=== PATIENT | male | born 1950 | race Two or more races ===

== ENCOUNTER 2016-07-02 12:09 | Emergency (ER) | payer OTHER ==
[2016-07-02 12:16] VITALS: BP 149/52; PULSE 94; TEMP 98; BMI 29.1
--- NOTE | 2016-07-02 12:56 | PDOC ---
History of Present Illness - General Chief Complaint: RX Refill Stated Complaint: PRESCRIPTION REFILL Time Seen by Provider: 07/02/16 12:26 History Source: Patient - History of Present Illness Timing/Duration: other Associated Symptoms: denies: chest pain, cough, fever/chills, headaches, malaise , nausea/vomiting, seizure, shortness of breath, syncope, weakness Past History - Past Medical History Allergies/Adverse Reactions: Allergies Allergy/AdvReac Type Severity Reaction Status Date / Time No Known Allergies Allergy Verified 07/02/16 12:17 Home Medications: Ambulatory Orders Amlodipine Besylate [Norvasc -] 5 mg PO DAILY 01/09/13 Clopidogrel Bisulfate [Plavix -] 75 mg PO DAILY 01/09/13 Atorvastatin Ca [Lipitor] 20 mg PO HS #0 tablet 01/11/13 Glyburide/Metformin HCl [Glyburide-Metformin 5-500 mg] 1 each PO TID #30 tablet 01/11/13 Loratadine [Claritin -] 10 mg PO DAILY #0 tablet 01/11/13 Nitroglycerin [Nitrostat] 0.4 mg SL Q6H PRN #0 tab.subl 01/11/13 Tamsulosin HCl 0.4 mg PO DAILY #0 cap.er.24h 01/11/13 Lorazepam [Ativan] 1 mg GT TID PRN #12 tablet 02/07/13 Meclizine HCl [Antivert -] 25 mg PO TID #30 tablet 05/18/13 Ondansetron [Zofran *Odt*] 8 mg SL TID PRN #14 od.tablet 05/18/13 Aspirin [ASA -] 81 mg PO DAILY #0 tab.chew 05/22/13 Gabapentin [Neurontin -] 100 mg PO HS #0 capsule 05/22/13 Metformin HCl [Glucophage -] 500 mg PO BIDAC #60 tablet 05/22/13 Phenytoin Na Extended [Dilantin -] 30 mg PO TID #90 capsule 05/22/13 Physical Therapy Order 10 each NR ASDIR #1 order 05/22/13 Quetiapine Fumarate [Seroquel] 100 mg PO BID #14 tablet 05/23/13 Alprazolam [Xanax] 2 mg PO BID #28 tab MDD 4mg 07/02/16 Metoprolol Tartrate [Lopressor -] 25 mg PO BID #28 tab 07/02/16 Anemia: No Asthma: No Cancer: No Cardiac Disorders: Yes ([place] 25 years ago) CVA: No COPD: No CHF: No Dementia: No Diabetes: Yes GI Disorders: Yes (ulcers) Disorders: No HTN: Yes Hypercholesterolemia: Yes Liver Disease: No Psychiatric Problems: Yes (DEPRESSION) Suicide Attempt (Hx): No Seizures: Yes (2010) Thyroid Disease: No - Surgical History Abdominal Surgery: No Appendectomy: No Cardiac Surgery: No Cholecystectomy: No Lung Surgery: No Neurologic Surgery: No Orthopedic Surgery: Yes (L. Hand 2, 3, 4, 5 fingers amputated) - Immunization History Immunization Up to Date: Yes - Psycho/Social/Smoking Cessation Hx Anxiety: Yes Suicidal Ideation: No Smoking Status: No Smoking History: Never smoked Have you smoked in the past 12 months: No Number of Cigarettes Smoked Daily: 0 If you are a former smoker, when did you quit?: 2012 Information on smoking cessation initiated: No 'Breaking Loose' booklet given: 08/04/12 Hx Alcohol Use: No Drug/Substance Use Hx: Yes Substance Use Type: None Hx Substance Use Treatment: No (DENIES) Review of Systems - Review of Systems Constitutional: No: Chills, Fever Respiratory: No: Cough, Shortness of Breath Cardiac (ROS): No: Lightheadedness ABD/GI: No: Constipated, Diarrhea, Nausea, Vomiting : No: Dysuria Neurological: No: Headache, Dizziness *Physical Exam - Vital Signs Last Vital Signs Temp Pulse Resp BP Pulse Ox 98 F 94 H 18 149/52 99 07/02/16 12:12 07/02/16 12:12 07/02/16 12:12 07/02/16 12:12 07/02/16 12:12 - Physical Exam General Appearance: Yes: Appropriately Dressed. No: Apparent Distress HEENT: positive: Normal Voice Neck: positive: Supple Respiratory/Chest: positive: Lungs Clear, Normal Breath Sounds. negative: Respiratory Distress Cardiovascular: positive: Regular Rate, S1, S2 Integumentary: positive: Dry, Warm Neurologic: positive: Fully Oriented, Alert, Normal Mood/Affect Medical Decision Making - Medical Decision Making 07/02/16 13:08 65-year-old male, history of hypertension, diabetes, anxiety, here for medication refill. Patient came to [facility] yesterday because his brother recently and states some of his meds got left behind in [place] where he resides. Denies any acute medical complaints at this time. Refills sent to pharmacy and patient discharged in stable condition 07/02/16 13:09 *DC/Admit/Observation/Transfer Diagnosis at time of Disposition: Medication refill - Discharge Dispostion Disposition: HOME Condition at time of disposition: Good - Prescriptions Prescriptions: Metoprolol Tartrate [Lopressor -] 25 mg PO BID #28 tab Alprazolam [Xanax] 2 mg PO BID #28 tab MDD 4mg - Patient Instructions Additional Instructions: Take medications as directed
== END 2016-07-02 13:00 | disposition home or self-care (01) ==
LOC: JERFT 12:09
DX: Z76.0 Encounter for issue of repeat prescription (principal); I10 Essential (primary) hypertension; E11.9 Type 2 diabetes mellitus without complications; Z79.84 Long term (current) use of oral hypoglycemic drugs; F41.9 Anxiety disorder, unspecified
CPT/HCPCS: 99281-25

== ENCOUNTER → 2016-07-07 | Emergency (ER) | payer OTHER ==
[~2016-07-07] MED LIST: ALPRAZolam 0.25 MG TABLET ONE; ALPRAZolam 0.25 MG TABLET PO ONE; MECLIZINE HCL 25 MG TABLET (FP) ONE; MECLIZINE HCL 25 MG TABLET (FP) PO ONE; METOCLOPRAMIDE HCL INJECTION 10 MG/2 ML VIAL IVPUSH ONE; METOCLOPRAMIDE HCL INJECTION 10 MG/2 ML VIAL ONE; ONDANSETRON 4 MG/2 ML VIAL IVPB ONE; SODIUM CHLORIDE 1,000 ML IV ONE
[2016-07-07 10:23] VITALS: BMI 29.1
--- NOTE | 2016-07-07 12:26 | PDOC ---
History of Present Illness - General History Source: Patient, Old Records Exam Limitations: No Limitations - History of Present Illness Initial Comments: 07/07/16 19:09 The patient is a 65 year old male, with a significant past medical history of [place] , diabetes, HLD, HTN, depression. chronic back pain, and seizures (no seizures in years), who presents to the emergency department with chest pain, shortness of breath, dizziness, nausea and back pain for the past 3 days. He describes his dizziness as onset when he sits or stands up and resolved when he lays down. He also reports double vision associated with his dizziness. States he has had this for a while, and has taken meclizine in the past but has never seen a neurologist. He describes his chest pain as intermittent in nature, ranging from mild to moderate, without radiation or modifying factors. He states that he has also been having right upper extremity numbness for roughly 8 days. He reports that he recently came from [place] and left his Xanax and Percocet there. The patient ambulates with a cane on baseline but has been having trouble ambulating due to his dizziness. The patient denies headache, fever, chills, vomit, diarrhea and constipation. Allergies: None Past surgical history: Cardiac stent, L. Hand 2, 3, 4, 5 fingers amputated Social history: No alcohol, tobacco or drug use reported <Aries Tsai - Last Filed: 07/07/16 19:09> <Cameron Coulter - Last Filed: 07/07/16 20:13> - General Chief Complaint: Shortness of Breath Stated Complaint: ANXIETY ATTACK Time Seen by Provider: 07/07/16 12:12 Past History <Aries Tsai - Last Filed: 07/07/16 19:09> - Past Medical History Anemia: No Asthma: No Cancer: No Cardiac Disorders: Yes ([place] 25 years ago) CVA: No COPD: No CHF: No Dementia: No Diabetes: Yes GI Disorders: Yes (ulcers) Disorders: No HTN: Yes Hypercholesterolemia: Yes Liver Disease: No Psychiatric Problems: Yes (DEPRESSION) Suicide Attempt (Hx): No Seizures: Yes (2010) Thyroid Disease: No - Surgical History Abdominal Surgery: No Appendectomy: No Cardiac Surgery: No Cholecystectomy: No Lung Surgery: No Neurologic Surgery: No Orthopedic Surgery: Yes (L. Hand 2, 3, 4, 5 fingers amputated) - Immunization History Immunization Up to Date: Yes - Psycho/Social/Smoking Cessation Hx Anxiety: Yes Suicidal Ideation: No Smoking Status: No Smoking History: Never smoked Have you smoked in the past 12 months: No Number of Cigarettes Smoked Daily: 0 If you are a former smoker, when did you quit?: 2012 Information on smoking cessation initiated: No 'Breaking Loose' booklet given: 08/04/12 Hx Alcohol Use: No Drug/Substance Use Hx: No Substance Use Type: None Hx Substance Use Treatment: No (DENIES) <Cameron Coulter - Last Filed: 07/07/16 20:13> - Past Medical History Allergies/Adverse Reactions: Allergies Allergy/AdvReac Type Severity Reaction Status Date / Time No Known Allergies Allergy Verified 07/07/16 10:20 Home Medications: Ambulatory Orders Amlodipine Besylate [Norvasc -] 5 mg PO DAILY 01/09/13 Clopidogrel Bisulfate [Plavix -] 75 mg PO DAILY 01/09/13 Atorvastatin Ca [Lipitor] 20 mg PO HS #0 tablet 01/11/13 Glyburide/Metformin HCl [Glyburide-Metformin 5-500 mg] 1 each PO TID #30 tablet 01/11/13 Loratadine [Claritin -] 10 mg PO DAILY #0 tablet 01/11/13 Nitroglycerin [Nitrostat] 0.4 mg SL Q6H PRN #0 tab.subl 01/11/13 Tamsulosin HCl 0.4 mg PO DAILY #0 cap.er.24h 01/11/13 Lorazepam [Ativan] 1 mg GT TID PRN #12 tablet 02/07/13 Meclizine HCl [Antivert -] 25 mg PO TID #30 tablet 05/18/13 Ondansetron [Zofran *Odt*] 8 mg SL TID PRN #14 od.tablet 05/18/13 Aspirin [ASA -] 81 mg PO DAILY #0 tab.chew 05/22/13 Gabapentin [Neurontin -] 100 mg PO HS #0 capsule 05/22/13 Metformin HCl [Glucophage -] 500 mg PO BIDAC #60 tablet 05/22/13 Phenytoin Na Extended [Dilantin -] 30 mg PO TID #90 capsule 05/22/13 Physical Therapy Order 10 each NR ASDIR #1 order 05/22/13 Quetiapine Fumarate [Seroquel] 100 mg PO BID #14 tablet 05/23/13 Alprazolam [Xanax] 2 mg PO BID #28 tab MDD 4mg 07/02/16 Metoprolol Tartrate [Lopressor -] 25 mg PO BID #28 tab 07/02/16 Diphenhydramine HCl [Benadryl -] 25 mg PO ONCE PRN #1 capsule 07/07/16 Meclizine HCl [Antivert -] 25 mg PO TID PRN #15 tablet 07/07/16 Oxycodone HCl/Acetaminophen [Percocet 5-325 mg Tablet] 1 tab PO HS 07/07/16 Review of Systems - Review of Systems Able to Perform ROS?: Yes Comments:: 07/07/16 19:09 CONSTITUTIONAL: No reported: Fever, Chills, Diaphoresis, Generalized Weakness, Malaise, Loss of Appetite HEENT: No reported: Rhinorrhea, Nasal Congestion, Throat Pain, Throat Swelling, Difficulty Swallowing, Mouth Swelling, Ear Pain, Eye Pain, Visual Changes CARDIOVASCULAR: Reported: Chest pain No reported: Syncope, Palpitations, Irregular Heart Rate, Lightheadedness, Peripheral Edema RESPIRATORY: Reported: Shortness of breath No reported: Cough, SOB with Exertion, Orthopnea, Wheezing, Stridor, Hemoptysis GASTROINTESTINAL: Reported: Nausea No reported: Abdominal pain, Abdominal Distension, Vomiting, Diarrhea, Constipation, Melena, Hematochezia GENITOURINARY: No reported: Dysuria, Frequency, Urgency, Hesitancy, Flank Pain, Genital Pain MUSCULOSKELETAL: Reported: Back pain. No reported: Myalgia, Arthralgia, Joint Swelling, Neck Pain SKIN: No reported: Rash, Itching, Pallor HEMEATOLOGIC/IMMUNOLOGIC: No reported: Easy Bleeding, Easy Bruising, Lymphadenopathy, Frequent infections ENDOCRINE: No reported: Unexplained Weight Gain, Unexplained Weight Loss, Heat Intolerance , Cold Intolerance NEUROLOGIC: Reported: dizzines, right upper extremity numbness. No reported: Headache, Paresthesias, Unsteady Gait, Seizure, Mental Status Changes, Incontinence PSYCHIATRIC: No reported: Anxiety, Depression <Aries Tsai - Last Filed: 07/07/16 19:09> *Physical Exam - Vital Signs Last Vital Signs Temp Pulse Resp BP Pulse Ox 98.7 F 68 18 154/84 97 07/07/16 13:51 07/07/16 13:51 07/07/16 13:51 07/07/16 13:51 07/07/16 13:51 - Physical Exam Comments: 07/07/16 19:09 GENERAL: The patient is awake, alert, and fully oriented, Nontoxic - in no acute distress. HEAD: Normocephalic, atraumatic. EYES: extraocular movements intact, sclera anicteric, conjunctiva clear. ENT: Normal voice, Moist mucous membranes. NECK: Normal range of motion, supple LUNGS: Breath sounds equal, clear to auscultation bilaterally. No wheezes, no rhonchi, no rales. HEART: Regular rate and rhythm, without murmur, rub or gallop. ABDOMEN: Soft, nontender, normoactive bowel sounds. 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 Normal range of motion, no edema. No clubbing or cyanosis. No cords, erythema, or tenderness. NEURO: Mental status: The patient is oriented x3. Cranial nerves: Cranial nerves II through XII are intact Motor: The upper extremities are 5 over 5 in all muscle groups. The lower extremities are 5 over 5 in all muscle groups. No pronator drift. Sensation: Sensation is intact to light touch throughout. Neg romberg Cerebellar: Ymxoyb-[id number]-yudy is normal in both upper extremities. Gait: antalgic (with cane) baseline PSYCH: Normal mood, normal affect. SKIN: Warm, Dry, normal turgor <Aries Tsai - Last Filed: 07/07/16 19:09> - Vital Signs Last Vital Signs Temp Pulse Resp BP Pulse Ox 97.9 F 79 18 128/93 100 07/07/16 10:21 07/07/16 10:21 07/07/16 10:21 07/07/16 10:21 07/07/16 10:21 <Cameron Coulter - Last Filed: 07/07/16 20:13> Heart Score/ECG Review - ECG Impressions Comment:: 07/07/16 14:50 Twelve-lead EKG was performed and reviewed by me. There is normal sinus rhythm with a normal rate. Rate of 65 The axis is normal. The intervals are normal. There is normal R wave progression There are no ST or T wave abnormalities. <Yfn,Cameron - Last Filed: 07/07/16 20:13> ED Treatment Course - LABORATORY CBC & Chemistry Diagram: 07/07/16 12:42 07/07/16 12:42 - ADDITIONAL ORDERS Additional order review: Laboratory Results 07/07/16 07/07/16 15:26 12:42 Sodium 143 Potassium 4.1 Chloride 107 Carbon Dioxide 26 Anion Gap 10 BUN 10 D Creatinine 0.9 D Creat Clearance w eGFR > 60 Random Glucose 155 H D Calcium 8.7 Total Bilirubin 0.3 D AST 10 L D ALT 15 D Alkaline Phosphatase 69 Creatine Kinase 96 Troponin I < 0.02 Total Protein 7.6 Albumin 4.2 Urine Color Straw Urine Appearance Clear Urine pH 6.0 Ur Specific [place] 1.010 Urine Protein Negative Urine Glucose (UA) Negative Urine Ketones Negative Urine Blood Negative Urine Nitrite Negative Urine Bilirubin Negative Urine Urobilinogen Negative Ur Leukocyte Esterase Negative 07/07/16 12:42 RBC 4.22 MCV 84.6 MCHC 34.5 RDW 13.4 MPV 8.6 Neutrophils % 65.7 Lymphocytes % 25.4 D Monocytes % 5.3 Eosinophils % 3.2 D Basophils % 0.4 - Medications Given in the ED: ED Medications Discontinued Medications Generic Name Dose Route Start Last Admin Trade Name Megan PRN Reason Stop Dose Admin Alprazolam 0.25 mg 07/07/16 15:26 07/07/16 15:35 Xanax - PO 07/07/16 15:27 0.25 mg ONCE ONE Administration Sodium Chloride 1,000 mls @ 1,000 mls/hr 07/07/16 12:27 07/07/16 12:49 Normal Saline - IV 07/07/16 13:26 1,000 mls/hr .Q1H ONE Administration Meclizine HCl 25 mg 07/07/16 12:27 07/07/16 12:48 Antivert - PO 07/07/16 12:28 25 mg ONCE ONE Administration Metoclopramide HCl 10 mg 07/07/16 16:33 07/07/16 18:25 Reglan Injection - IVPUSH 07/07/16 16:34 10 mg ONCE ONE Administration Ondansetron HCl 4 mg 07/07/16 12:27 07/07/16 12:49 Zofran Injection IVPB 07/07/16 12:28 4 mg ONCE ONE Administration <Aries Tsai - Last Filed: 07/07/16 19:09> - LABORATORY CBC & Chemistry Diagram: 07/07/16 12:42 07/07/16 12:42 <Cameron Coulter - Last Filed: 07/07/16 20:13> Medical Decision Making - Medical Decision Making 07/07/16 20:10 65y M presenting with dizziness, chest pain, leg pain. symptmos seem chronic but worse than usual. pts exam unremarakable without any focal neuro symptoms, no notable cerebellar findings. suspect periperal vertigo as dizzines (which seems to be his primary concern) is worse with walking but resolves completely at rest - unlikely central cause without any focal cerebellar or neuro findings. labs were obtained to r/o anemia, metabolic derangement, acs labs were reviewed ct head shows no changes pt able to ambulate with hi typical giat dizziness also improved with meclizine. case discussed with dr. powers - states if pt feeling well can d/c to fu with him as outpt and with dr. blake for his dizziness will dc pt on meclizine return precautiosn were discussed I discussed the physical exam findings, ancillary test results and final diagnoses with the patient. I answered all of the patient's questions. The patient was satisfied with the care received and felt comfortable with the discharge plan and treatment plan. The patient will call their primary care physician within 24 hours to arrange follow-up and will return to the Emergency Department with any new, persistent or worsening symptoms. A portion of this note was documented by scribe services under my direction. I have reviewed the details of the note, within reason, and agree with the documentation with the following case summary and management plan written by me <Cameron Coulter - Last Filed: 07/07/16 20:13> *DC/Admit/Observation/Transfer - Attestations Scribe Attestion: 07/07/16 19:09 Documentation prepared by Aries Tsai, acting as director medical economics for Cameron Coulter MD <Aries Tsai - Last Filed: 07/07/16 19:09> - Discharge Dispostion Admit: No <Yfn,Cameron - Last Filed: 07/07/16 20:13> Diagnosis at time of Disposition: Vertigo - Discharge Dispostion Disposition: HOME Condition at time of disposition: Improved - Prescriptions Prescriptions: Meclizine HCl [Antivert -] 25 mg PO TID PRN #15 tablet PRN Reason: Vertigo Diphenhydramine HCl [Benadryl -] 25 mg PO ONCE PRN #1 capsule PRN Reason: Insomnia - Referrals Referrals: Brenda Powers MD [Staff Physician] - Anil Blake MD [Staff Physician] - - Patient Instructions Printed Discharge Instructions: DI for Vertigo Additional Instructions: Return to the emergency department immediately with ANY new, persistent or worsening symptoms including headacine, dizziness, nausea/vomiting or other concerns. You MUST call and follow up with Dr. Powers tomorrow for further evaluation of your symptoms. Results were discussed with you. Please make sure your doctor reviews the results of your emergency evaluation. Print Language: BOLIVIAN
[2016-07-07 13:18] LABS: BASOPHIL 0.4 % (0-2.0); EOSINOPHIL 3.2 % (0-4.5); MCH 29.2 pg (25.7-33.7); MCHC 34.5 g/dl (32.0-35.9); MEAN CELL VOLUME 84.6 fl (80-96); MEAN PLT VOLUME 8.6 fl (7.5-11.1); NEUTROPHILS 65.7 % (42.8-82.8); PLATELET COUNT 152 K/MM3 (134-434); RDW 13.4 % (11.9-15.9); WHITE BLOOD COUNT 6.6 K/mm3 (4.0-10.0)
[2016-07-07 13:52] VITALS: BP 154/84; PULSE 68; TEMP 98.7
[2016-07-07 14:07] LABS: ALBUMIN 4.2 g/dl (3.4-5.0); ANION GAP 10 (8-16); BILIRUBIN,TOTAL 0.3 mg/dL (0.2-1.0); CALCIUM 8.7 mg/dL (8.5-10.1); CO2 26 mmol/L (21-32); CREATININE 0.9 mg/dL (0.7-1.3); GLUCOSE,RANDOM 155 mg/dL (74-106); SGOT/AST 10 U/L (15-37); SGPT/ALT 15 U/L (12-78); TOT PROT 7.6 g/dl (6.4-8.2)
[2016-07-07 14:10] LABS: ALK PHOS 69 U/L (45-117); TROPONIN I < 0.02 ng/ml (0.00-0.05)
--- NOTE | 2016-07-07 15:56 | EKG ---
Test Reason : Blood Pressure : / mmHG Vent. Rate : 065 BPM Atrial Rate : 065 BPM P-R Int : 160 ms QRS Dur : 080 ms QT Int : 406 ms P-R-T Axes : 044 013 059 degrees QTc Int : 422 ms NORMAL SINUS RHYTHM POSSIBLE LEFT ATRIAL ENLARGEMENT BORDERLINE ECG WHEN COMPARED WITH ECG OF 23-MAY-2013 14:54, VENT. RATE HAS DECREASED BY 38 BPM T WAVE VARIATION Confirmed by LORRI BLACKMAN MD ([id number]) on 07/07/2016 3:55:39 PM Referred By: Confirmed By:LORRI BLACKMAN MD
[2016-07-07 16:00] LABS: URINE APPEARANCE CLEAR; URINE BILIRUBIN NEGATIVE (NEGATIVE); URINE BLOOD NEGATIVE (NEGATIVE); URINE COLOR STRAW; URINE GLUCOSE (UA) NEGATIVE (NEGATIVE); URINE KETONE NEGATIVE (NEGATIVE); URINE LEUK ESTERASE NEGATIVE (NEGATIVE); URINE NITRITE NEGATIVE (NEGATIVE); URINE PROTEIN NEGATIVE (NEGATIVE); URINE UROBILINOGEN NEGATIVE E.U./dl (0.2-1.0)
== END | disposition home or self-care (01) ==
LOC: JER 10:14
PROC: 3E033GC Introduction of Other Therapeutic Substance into Peripheral Vein, Percutaneous Approach (ICD-10-PCS; principal; 2016-07-07)
PROC: 3E0337Z Introduction of Electrolytic and Water Balance Substance into Peripheral Vein, Percutaneous Approach (ICD-10-PCS; 2016-07-07)
DX: R42 Dizziness and giddiness (principal); I25.2 Old myocardial infarction; I10 Essential (primary) hypertension; E78.00 Pure hypercholesterolemia, unspecified; F32.9 Major depressive disorder, single episode, unspecified; E11.9 Type 2 diabetes mellitus without complications; Z79.84 Long term (current) use of oral hypoglycemic drugs
CPT/HCPCS: 36415; 70450-TC; 80053; 81003; 82550; 84484; 85025; 93005; 93010; 96361; 96374; 96375; 99283-25

== ENCOUNTER 2016-09-22 13:43 | Inpatient (IN) | payer OTHER ==
--- NOTE | 2016-09-22 14:24 | PDOC ---
History of Present Illness - General History Source: Patient Exam Limitations: No Limitations - History of Present Illness Initial Comments: 09/22/16 14:26 The patient is a 65-year-old man with a significant past medical history of hypertension, hypercholesterolemia, myocardial infarction (25 years ago), diabetes mellitus, gastric ulcers, seizure disorders and anxiety who presents to the emergency department with complaints of chest pain. Patient states that for the past 3 days, he has been experiencing mid-sternal chest pains that are exacerbated when taking a deep breath and worst at night. He also notes that he also has a continuous cough that also exacerbates at night. He also states that he recently came from [place], approximately 2 months ago. No other complaints. He reports compliance with all of his medications this morning. He did not tae anything for pain. No fever, chills, lightheadedness, dizziness, abdominal pain, nausea, vomiting. Allergies: No Known Drug Allergies Past Surgical History: Left hand second, third, fourth and fifth digit amputation Social History: Current some day cigarette smoker. Occasional EtOH use. No recreational drug use. Primary Care Physician: Dr. Brenda Araujo <Jessi Duran - Last Filed: 09/22/16 17:42> <Carolina Costa - Last Filed: 09/22/16 18:17> - General Chief Complaint: Chest Pain Stated Complaint: CHEST PAIN Time Seen by Provider: 09/22/16 14:13 Past History <Jessi Duran - Last Filed: 09/22/16 17:42> - Past Medical History Anemia: No Asthma: No Cancer: No Cardiac Disorders: Yes ([place] 25 years ago) CVA: No COPD: No CHF: No Dementia: No Diabetes: Yes GI Disorders: Yes (ulcers) Disorders: No HTN: Yes Hypercholesterolemia: Yes Liver Disease: No Psychiatric Problems: Yes Suicide Attempt (Hx): No Seizures: Yes (2010) Thyroid Disease: No - Surgical History Abdominal Surgery: No Appendectomy: No Cardiac Surgery: No Cholecystectomy: No Lung Surgery: No Neurologic Surgery: No Orthopedic Surgery: Yes (L. Hand 2, 3, 4, 5 fingers amputated) - Immunization History Immunization Up to Date: Yes - Psycho/Social/Smoking Cessation Hx Anxiety: Yes Suicidal Ideation: No Smoking Status: No Smoking History: Current some day smoker Have you smoked in the past 12 months: No Number of Cigarettes Smoked Daily: 1 If you are a former smoker, when did you quit?: 2012 Information on smoking cessation initiated: No 'Breaking Loose' booklet given: 08/04/12 Hx Alcohol Use: Yes (OCCASIONALLY) Drug/Substance Use Hx: Yes (none x 5 years) Substance Use Type: Prescribed Hx Substance Use Treatment: No (DENIES) <CostaDharaCarolina - Last Filed: 09/22/16 18:17> - Past Medical History Allergies/Adverse Reactions: Allergies Allergy/AdvReac Type Severity Reaction Status Date / Time No Known Allergies Allergy Verified 09/22/16 13:49 Home Medications: Ambulatory Orders Metoprolol Tartrate [Lopressor -] 25 mg PO BID #28 tab 07/02/16 Meclizine HCl [Antivert -] 25 mg PO TID 09/03/16 Metoclopramide HCl [Reglan -] 10 mg PO TID 09/03/16 Oxycodone HCl/Acetaminophen [Percocet 10-325 mg Tablet] 1 each PO BID PRN #14 tablet MDD 2 09/04/16 Ambien 10 mg PO DAILY 09/22/16 Folic Acid 1 mg PO DAILY 09/22/16 Metoprolol Succinate [Toprol Xl -] 25 mg PO DAILY 09/22/16 Naproxen [Naprosyn -] 500 mg PO DAILY 09/22/16 Quetiapine Fumarate "Xr" [Seroquel Xr -] 150 mg PO DAILY 09/22/16 Sennosides [Senna] 8.6 mg PO 09/22/16 Simvastatin 40 mg PO 09/22/16 Review of Systems - Review of Systems Able to Perform ROS?: Yes Comments:: 09/22/16 14:26 GENERAL/CONSTITUTIONAL: No fever or chills. No weakness. HEAD, EYES, EARS, NOSE AND THROAT: No change in vision. No ear pain or discharge. No sore throat. CARDIOVASCULAR: Yes: Chest Pain. Shortness of Breath. RESPIRATORY: Yes: Cough No Wheezing, or hemoptysis. GASTROINTESTINAL: No nausea, vomiting, diarrhea or constipation. GENITOURINARY: No dysuria, frequency, or change in urination. MUSCULOSKELETAL: No joint or muscle swelling or pain. No neck or back pain. SKIN: No rash NEUROLOGIC: No headache, vertigo, loss of consciousness, or change in strength/ sensation. ENDOCRINE: No increased thirst. No abnormal weight change. HEMATOLOGIC/LYMPHATIC: No anemia, easy bleeding, or history of blood clots. ALLERGIC/IMMUNOLOGIC: No hives or skin allergy. <DuranJessi - Last Filed: 09/22/16 17:42> *Physical Exam - Vital Signs Last Vital Signs Temp Pulse Resp BP Pulse Ox 97.8 F 110 H 20 204/112 96 09/22/16 13:45 09/22/16 13:45 09/22/16 13:45 09/22/16 13:45 09/22/16 13:45 - Physical Exam Comments: 09/22/16 14:26 GENERAL: Awake, alert, and fully oriented, in no acute distress HEAD: No signs of trauma EYES: PERRLA, EOMI, sclera anicteric, conjunctiva clear ENT: Auricles normal inspection, hearing grossly normal, nares patent, oropharynx clear without exudates. Moist mucosa NECK: Normal ROM, supple, no lymphadenopathy, JVD, or masses LUNGS: Breath sounds equal, clear to auscultation bilaterally. No wheezes, and no crackles HEART: Tachycardic but regular rate and rhythm, no murmurs, rubs or gallops ABDOMEN: Soft, nontender, normoactive bowel sounds. No guarding, no rebound. No masses EXTREMITIES: Normal range of motion, no edema. No clubbing or cyanosis. No cords, erythema, or tenderness NEUROLOGICAL: Cranial nerves II through XII grossly intact. Normal speech, normal gait <ReneeJessi - Last Filed: 09/22/16 17:42> - Vital Signs Last Vital Signs Temp Pulse Resp BP Pulse Ox 97.8 F 110 H 20 204/112 96 09/22/16 13:45 09/22/16 13:45 09/22/16 13:45 09/22/16 13:45 09/22/16 13:45 <Carolina Costa - Last Filed: 09/22/16 18:17> Heart Score/ECG Review - History History: Highly suspicious - Electrocardiogram EKG: Normal - Age Age: >/= 65 - Risk Factors Risk Factors Heart Score: Yes Hx Hypercholesterolemia, Yes Hx Hypertension, Yes Hx Diabetes, Yes Smoking History Based on the list above the patient has:: >/=3 risk factors or Hx atherosclerotic disease - Troponin Troponin: </= normal limit - Score Heart Score - Total: 6 - ECG Impressions Comment:: EKG 13:55- Sinus tach 102 bpm, no acute ST/T changes <Carolina Costa - Last Filed: 09/22/16 18:17> ED Treatment Course - LABORATORY CBC & Chemistry Diagram: 09/22/16 14:50 09/22/16 14:50 - RADIOLOGY Radiograph Interpretation: 09/22/16 16:18 EXAM: RAD/CHEST X-RAY PORTABLE Interpreted by Dr. Cleve Bishop IMPRESSION: Since 05/18/2013, there is a slightly better inspiration and no sign of infiltrate or failure. The mediastinum is not widened. The angles are sharp. The bones and soft tissues are intact. EXAM: CT/CHEST CTA Interpreted by Dr. Brian Pineda IMPRESSION: Sequential axial images were obtained from the thoracic inlet through the domes of the diaphragm following the administration of intravenous contrast material. CTA pulmonary embolism protocol was utilized, including coronal and oblique coronal MIP images. There is good opacification of the central pulmonary vasculature with no filling defects suspicious for pulmonary embolism. The lung stinson are free of pulmonary masses, areas of acute consolidation or pleural effusions. No mediastinal masses, fluid collections or lymphadenopathy are identified. The heart is not enlarged. There is no evidence of thoracic aortic aneurysm or dissection. Evaluation of the upper abdomen demonstrates no acute abnormalities. <Jessi Duran - Last Filed: 09/22/16 17:42> - LABORATORY CBC & Chemistry Diagram: 09/22/16 14:50 09/22/16 14:50 <Carolina Costa - Last Filed: 09/22/16 18:17> Medical Decision Making - Medical Decision Making 09/22/16 17:[address] Brenda Araujo. Informed that Dr. Rohith Ross is covering. 09/22/16 17:[address] Rohith Ross. Case discussed. <Jessi Duran - Last Filed: 09/22/16 17:42> - Medical Decision Making 09/22/16 17:42 CTA neg for PE. Case d/w Dr. Ross, will admit for chest pain. <Carolina Costa - Last Filed: 09/22/16 18:17> *DC/Admit/Observation/Transfer - Attestations Scribe Attestion: 09/22/16 14:26 Documentation prepared by Jessi Duran, acting as medical pathologist for Carolina Costa MD. <Jessi Duran - Last Filed: 09/22/16 17:42> - Discharge Dispostion Admit: Yes <Carolina Costa - Last Filed: 09/22/16 18:17> Diagnosis at time of Disposition: Chest pain Qualifiers: Chest pain type: unspecified Qualified Code(s): R07.9 - Chest pain, unspecified - Discharge Dispostion Condition at time of disposition: Stable - Referrals Referrals: Brenda Araujo MD [Primary Care Provider] -
[2016-09-22 15:00] LABS: BASOPHIL 0.5 % (0-2.0); EOSINOPHIL 2.7 % (0-4.5); MCH 29.7 pg (25.7-33.7); MCHC 32.8 g/dl (32.0-35.9); MEAN CELL VOLUME 90.5 fl (80-96); MEAN PLT VOLUME 9.8 fl (7.5-11.1); NEUTROPHILS 72.8 % (42.8-82.8); PLATELET COUNT 165 K/MM3 (134-434); RDW 14.1 % (11.9-15.9); WHITE BLOOD COUNT 6.6 K/mm3 (4.0-10.0)
[2016-09-22 15:25] LABS: ALBUMIN 4.9 g/dl (3.4-5.0); ANION GAP 12 (8-16); BILIRUBIN,TOTAL 0.3 mg/dL (0.2-1.0); CALCIUM 9.2 mg/dL (8.5-10.1); CO2 23 mmol/L (21-32); CREATININE 0.9 mg/dL (0.7-1.3); GLUCOSE,RANDOM 114 mg/dL (74-106); SGOT/AST 17 U/L (15-37); SGPT/ALT 30 U/L (12-78); TOT PROT 8.6 g/dl (6.4-8.2)
[2016-09-22 15:28] LABS: ALK PHOS 64 U/L (45-117); TROPONIN I < 0.02 ng/ml (0.00-0.05)
[2016-09-22 15:30] LABS: INR 1.04 (0.82-1.09); PROTHROMBIN TIME (PATIENT) 11.4 SEC (9.98-11.88)
[2016-09-22] MEDS ORDERED: ZOLPIDEM TARTRATE 5 MG TABLET PO PRN (18:49)
[2016-09-22] MEDS ORDERED: ASPIRIN 325 MG ENTERIC COATED TABLET (FP) ONE (18:56)
[2016-09-22] MEDS: ASPIRIN 325 MG ENTERIC COATED TABLET (FP) PO SCH (19:10)
[2016-09-22 20:18] LABS: TROPONIN I < 0.02 ng/ml (0.00-0.05)
[2016-09-22] MEDS ORDERED: LOSARTAN POTASSIUM 25 MG TABLET ONE (22:56)
[2016-09-22] MEDS ORDERED: HEPARIN NA (PORCINE) 5,000 UNITS/ML 1ML VIAL ONE (22:56)
[2016-09-22] MEDS ORDERED: FERROUS SO4 325 MG TABLET (FP) ONE (22:56)
[2016-09-23] MEDS: MECLIZINE HCL 25 MG TABLET (FP) PO SCH ×4 (00:59→22:22)
[2016-09-23] MEDS: METOCLOPRAMIDE HCL 10 MG TABLET (FP) PO SCH ×4 (01:00→22:23)
[2016-09-23] MEDS: METOPROLOL TARTRATE 25 MG TABLET (FP) PO SCH ×4 (01:00→22:23)
[2016-09-23] MEDS: HEPARIN NA (PORCINE) 5,000 UNITS/ML 1ML VIAL SQ SCH ×3 (01:00→22:23)
[2016-09-23] MEDS: ATORVASTATIN CA 40 MG TABLET (FP) PO SCH ×2 (01:00→22:22)
[2016-09-23] MEDS ORDERED: ALPRAZolam 0.25 MG TABLET PO ONE ×2 (01:37→23:00)
[2016-09-23] MEDS ORDERED: ALPRAZolam 0.25 MG TABLET ONE (01:39)
[2016-09-23 07:39] LABS: BASOPHIL 0.3 % (0-2.0); EOSINOPHIL 3.3 % (0-4.5); MCH 30.7 pg (25.7-33.7); MCHC 33.8 g/dl (32.0-35.9); MEAN PLT VOLUME 9.4 fl (7.5-11.1); PLATELET COUNT 147 K/MM3 (134-434); RDW 14.1 % (11.9-15.9)
[2016-09-23 08:18] LABS: ALBUMIN 4.1 g/dl (3.4-5.0); ANION GAP 11 (8-16); CALCIUM 8.1 mg/dL (8.5-10.1); CO2 24 mmol/L (21-32); GLUCOSE,RANDOM 122 mg/dL (74-106)
[2016-09-23 08:23] LABS: ALK PHOS 55 U/L (45-117); BILIRUBIN,TOTAL 0.3 mg/dL (0.2-1.0); CHOLESTEROL 200 mg/dL (50-200); COCKROFT - GAULT 99.68; CREATININE 0.8 mg/dL (0.7-1.3); LDL CHOLESTEROL (ONLY SJRH) 123 mg/dL (5-100); SGOT/AST 13 U/L (15-37); SGPT/ALT 25 U/L (12-78); TOT PROT 7.4 g/dl (6.4-8.2); TROPONIN I < 0.02 ng/ml (0.00-0.05)
--- NOTE | 2016-09-23 08:23 | HP ---
Admitting History and Physical - Admission History of Present Illness: 65-year-old man with a significant past medical history of hypertension, hypercholesterolemia, myocardial infarction (25 years ago), diabetes mellitus, gastric ulcers, seizure disorders and anxiety who presents to the emergency department with complaints of chest pain. 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 Cardiovascular: Yes: HTN, Hyperlipdemia, [place] Gastrointestinal: Yes: GERD, Peptic Ulcer Disease Psych: Yes: Anxiety Musculoskeletal: Yes: Other (amputations of fingers rt hand) ENT: Yes: Allergic Rhinitis - Past Surgical History Past Surgical History: Yes: Amputation - Smoking History Smoking history: Current some day smoker Have you smoked in the past 12 months: No Aproximately how many cigarettes per day: 1 If you are a former smoker, when did you quit?: 2012 - Alcohol/Substance Use Hx Alcohol Use: Yes (OCCASIONALLY) - Social History History of Recent Travel: No Home Medications - Allergies Allergies/Adverse Reactions: Allergies Allergy/AdvReac Type Severity Reaction Status Date / Time No Known Allergies Allergy Verified 09/22/16 13:49 - Home Medications Home Medications: Ambulatory Orders Metoprolol Tartrate [Lopressor -] 25 mg PO BID #28 tab 07/02/16 Meclizine HCl [Antivert -] 25 mg PO TID 09/03/16 Metoclopramide HCl [Reglan -] 10 mg PO TID 09/03/16 Oxycodone HCl/Acetaminophen [Percocet 10-325 mg Tablet] 1 each PO BID PRN #14 tablet MDD 2 09/04/16 Ambien 10 mg PO DAILY 09/22/16 Folic Acid 1 mg PO DAILY 09/22/16 Metoprolol Succinate [Toprol Xl -] 25 mg PO DAILY 09/22/16 Naproxen [Naprosyn -] 500 mg PO DAILY 09/22/16 Quetiapine Fumarate "Xr" [Seroquel Xr -] 150 mg PO DAILY 09/22/16 Sennosides [Senna] 8.6 mg PO 09/22/16 Simvastatin 40 mg PO 09/22/16 Family Disease History - Family Disease History Family Disease History: Other: Father (' old age'), Mother (' old age') , Brother (back pain, alive) Review of Systems - Review of Systems Cardiovascular: reports: Chest Pain, Shortness of Breath Respiratory: reports: SOB, SOB on Exertion Gastrointestinal: denies: Abdominal Pain Neurological: denies: Change in LOC, Change in Speech, Confusion Physical Examination Vital Signs: Vital Signs Temperature 98.4 F 09/23/16 04:00 Pulse Rate 89 09/23/16 04:00 Respiratory Rate 24 09/23/16 04:00 Blood Pressure 163/89 09/23/16 04:00 O2 Sat by Pulse Oximetry (%) 97 09/22/16 16:55 Cardiovascular: Yes: Regular Rate and Rhythm Respiratory: Yes: Regular, CTA Bilaterally Gastrointestinal: Yes: Normal Bowel Sounds, Soft. No: Tenderness Edema: No Labs: CBC, BMP 09/23/16 06:34 Imaging - Results Cat Scan: Report Reviewed (cta--negative) Problem List - Problems (1) Chest pain Assessment/Plan: FOLLOW CE ECHO STRESS TEST CARDIO Code(s): R07.9 - CHEST PAIN, UNSPECIFIED Qualifiers: Chest pain type: unspecified Qualified Code(s): R07.9 - Chest pain, unspecified (2) Anxiety disorder Assessment/Plan: [facility] Code(s): F41.9 - ANXIETY DISORDER, UNSPECIFIED (3) DM Diabetes mellitus type 2 Assessment/Plan: BGM MONITOR Code(s): E11.9 - TYPE 2 DIABETES MELLITUS WITHOUT COMPLICATIONS (4) History of coronary artery disease Assessment/Plan: OBTAIN OLD RECORDS Code(s): Z86.79 - PERSONAL HISTORY OF OTHER DISEASES OF THE CIRCULATORY SYSTEM
[2016-09-23] MEDS ORDERED: levETIRAcetam 500 MG TABLET (FP) PO ONE (09:28)
[2016-09-23] MEDS: ASPIRIN 325 MG ENTERIC COATED TABLET (FP) PO SCH (09:35)
[2016-09-23] MEDS: FOLIC ACID 1 MG TABLET (FP) PO SCH (09:36)
[2016-09-23] MEDS: levETIRAcetam 500 MG TABLET (FP) PO SCH ×2 (09:36→22:23)
[2016-09-23] MEDS: RANITIDINE HCL 150 MG TABLET (FP) PO SCH (09:37)
[2016-09-23] MEDS ORDERED: DIPYRIDAMOLE STRESS TEST IVPB ONE (10:00)
[2016-09-23] MEDS ORDERED: DEXTROSE 5% IVPB ONE (10:00)
[2016-09-23] MEDS ORDERED: WATER IVPB ONE (10:00)
[2016-09-23] MEDS: INSULIN SLIDING SCALE (NOVOLOG) 1 VIAL SQ SCH ×3 (11:38→22:39)
--- NOTE | 2016-09-23 12:59 | EKG ---
Test Reason : Blood Pressure : / mmHG Vent. Rate : 083 BPM Atrial Rate : 083 BPM P-R Int : 150 ms QRS Dur : 078 ms QT Int : 386 ms P-R-T Axes : 044 -14 058 degrees QTc Int : 453 ms NORMAL SINUS RHYTHM NORMAL ECG WHEN COMPARED WITH ECG OF 07-JUL-2016 13:26, NO SIGNIFICANT CHANGE WAS FOUND Confirmed by KHADAR LOPEZ MD ([id number]) on 09/23/2016 12:59:37 PM Referred By: Ulises CHOWDHURY Confirmed By:KHADAR LOPEZ MD
--- NOTE | 2016-09-23 15:01 | CON.CARD ---
Consult Consult Specialty:: Cardiology Referred by:: Dr Ross Reason for Consultation:: chest pain - History of Present Illness Chief Complaint: chest pain History of Present Illness: 65M htn, niddm, chol, [place] many years ago, anxiety, seizure disorder, chest pain syndrome with a normal workup 2012 who presented to the ER with chest pain, nonexertional and brief, pinching in nature, without radiation or associated symptoms. No sob, orthopnea, PND, edema, palpitations, dizziness or syncope. Exercise tolerance is poor. ECG was normal and troponin was negative in ER. Echo 09/23/16 normal EF, LAE, ROE, mild MR TDS Nuclear Stress Test 09/23/16 no TID. EF 63% moderate sized mild intensity posterior ischemia. 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 Cardio/Vascular: Yes: HTN, Hyperlipdemia, [place] Gastrointestinal: Yes: GERD, Peptic Ulcer Disease Psych: Yes: Anxiety Musculoskeletal: Yes: Other (amputations of fingers rt hand) ENT: Yes: Allergic Rhinitis - Past Surgical History Past Surgical History: Yes: Amputation - Alcohol/Substance Use Hx Alcohol Use: Yes (OCCASIONALLY) - Smoking History Smoking history: Current some day smoker Have you smoked in the past 12 months: No Aproximately how many cigarettes per day: 1 If you are a former smoker, when did you quit?: 2012 - Social History Usual Living Arrangement: With Significant Other History of Recent Travel: No Home Medications - Allergies Allergies/Adverse Reactions: Allergies Allergy/AdvReac Type Severity Reaction Status Date / Time No Known Allergies Allergy Verified 09/22/16 13:49 - Home Medications Home Medications: Ambulatory Orders Metoprolol Tartrate [Lopressor -] 25 mg PO BID #28 tab 07/02/16 Meclizine HCl [Antivert -] 25 mg PO TID 09/03/16 Metoclopramide HCl [Reglan -] 10 mg PO TID 09/03/16 Oxycodone HCl/Acetaminophen [Percocet 10-325 mg Tablet] 1 each PO BID PRN #14 tablet MDD 2 09/04/16 Ambien 10 mg PO DAILY 09/22/16 Folic Acid 1 mg PO DAILY 09/22/16 Metoprolol Succinate [Toprol Xl -] 25 mg PO DAILY 09/22/16 Naproxen [Naprosyn -] 500 mg PO DAILY 09/22/16 Quetiapine Fumarate "Xr" [Seroquel Xr -] 150 mg PO DAILY 09/22/16 Sennosides [Senna] 8.6 mg PO 09/22/16 Simvastatin 40 mg PO 09/22/16 Family Disease History - Family Disease History Family Disease History: Other: Father (' old age'), Mother (' old age') , Brother (back pain, alive) Review of Systems - Review of Systems Constitutional: denies: No Symptoms, Chills, Diaphoresis, Fever, Lethargy, Loss of Appetite, Malaise, Night Sweats, Unintentional Wgt. Loss, Weakness, Other Eyes: denies: No Symptoms, Blind Spots, Blurred Vision, Double Vision, Eye Pain , Floaters, Photophobia, Recent Change in Vision, Other HENT: reports: No Symptoms. denies: Difficult Swallowing, Ear Discharge, Ear Pain, Epistaxis, Gingival Bleeding, Hearing Loss, Mouth Swelling, Nasal Congestion, Ocular Prosthesis, Throat Pain, Toothache, Ringing in Ears, Other Neck: denies: No Symptoms, Decreased ROM, Lumps, Pain on Movement, Stiffness, Swollen Glands, Tenderness, Other Cardiovascular: reports: No Symptoms, Chest Pain Respiratory: denies: No Symptoms, Cough, Exercise Intolerance, Hemoptysis, Orthopnea, PND, Snoring, SOB, SOB on Exertion, Wheezing, Other Gastrointestinal: denies: No Symptoms, Abdominal Pain, Bloating, Constipation, Diarrhea, Dysphagia, Indigestion, Melena, Nausea, Rectal Bleeding, Vomiting, Vomiting Blood, Other - Risk Factors Known Risk Factors: Yes: Diabetes Mellitus, Hypercholesterolemia, Hypertension, Physical Inactivity Vital Signs: Vital Signs Temperature 98.2 F 09/23/16 09:00 Pulse Rate 79 09/23/16 09:00 Respiratory Rate 20 09/23/16 09:00 Blood Pressure 149/92 09/23/16 09:55 O2 Sat by Pulse Oximetry (%) 96 09/23/16 09:00 Constitutional: Yes: Well Nourished, No Distress, Calm Eyes: Yes: Conjunctiva Clear, EOM Intact HENT: Yes: Atraumatic, Normocephalic Neck: Yes: Supple, Trachea Midline Respiratory: Yes: Regular, CTA Bilaterally Gastrointestinal: Yes: Normal Bowel Sounds, Soft JVD: No Carotid Bruit: No PMI: Non-Displaced Heart Sounds: Yes: S1, S2 Edema: No Peripheral Pulses WNL: Yes - Other Data Labs, Other Data: CBC, BMP 09/23/16 06:34 09/23/16 06:00 INR, PTT INR 1.04 (0.82-1.09) 09/22/16 14:50 Troponin, BNP 09/22/16 09/23/16 18:55 06:00 Troponin I < 0.02 < 0.02 Troponin, BNP 09/22/16 09/23/16 18:55 06:00 Troponin I < 0.02 < 0.02 Imaging - Results X-ray: Report Reviewed (WILBERTO) EKG: Report Reviewed (normal) Other: Other (CTA no PE, normal chest.) Problem List - Problems (1) Chest pain Assessment/Plan: He has risk factors but a normal ECG, unremarkable echo, atypical symptoms and negative troponin. His stress test most likely represents artifact, but in the worst case represents 1 vessel CAD with a small ischemic burden and normal EF. Increase metoprolol to 50 bid. Add Ranexa 500 mg bid. will manage medically for now and be able to follow as outpatient when stable. Will follow with you. Code(s): R07.9 - CHEST PAIN, UNSPECIFIED Qualifiers: Chest pain type: precordial pain Qualified Code(s): R07.2 - Precordial pain
--- NOTE | 2016-09-23 16:44 | CON.PSY ---
Psychiatry Consult Chief Complaint: I am anxcious and depressed but not crazy. Symptoms: reports: Depressed Mood, Anxiety - Previous Psychiatric Treatment Outpatient: Less than 6 mos ago Inpatient: None - Previous Substance Abuse Treatment Outpatient: None Inpatient: None - Reason for Previous Treatment Reason for Previous Treatment: Major Depression, Anxiety or Panic Disorder - Current Medications Current Medications: Active Medications Aspirin (Ecotrin -) 325 mg PO DAILY [facility] Last Admin: 09/23/16 09:35 Dose: 325 mg Atorvastatin Calcium (Lipitor -) 40 mg PO HS [facility] Last Admin: 09/23/16 01:00 Dose: 40 mg Folic Acid (Folic Acid -) 1 mg PO DAILY [facility] Last Admin: 09/23/16 09:36 Dose: 1 mg Heparin Sodium (Porcine) (Heparin -) 5,000 unit SQ BID [facility] Last Admin: 09/23/16 09:36 Dose: 5,000 unit Insulin Aspart (Novolog Vial Sliding Scale -) 1 vial SQ ACHS [facility] PRN Reason: Protocol Last Admin: 09/23/16 11:38 Dose: Not Given Levetiracetam (Keppra -) 500 mg PO BID [facility] Last Admin: 09/23/16 09:36 Dose: 500 mg Meclizine HCl (Antivert -) 25 mg PO TID [facility] Last Admin: 09/23/16 15:14 Dose: 25 mg Metoclopramide HCl (Reglan -) 10 mg PO TID [facility] Last Admin: 09/23/16 15:14 Dose: 10 mg Metoprolol Tartrate (Lopressor -) 25 mg PO BID [facility] Last Admin: 09/23/16 15:20 Dose: 25 mg Quetiapine Fumarate (Seroquel Xr -) 150 mg PO DAILY [facility] Last Admin: 09/23/16 09:37 Dose: Not Given Ranitidine HCl (Zantac -) 300 mg PO DAILY [facility] Last Admin: 09/23/16 09:37 Dose: 300 mg Zolpidem Tartrate (Ambien -) 5 mg PO HS PRN PRN Reason: INSOMNIA - Allergies Allergies: Allergies Allergy/AdvReac Type Severity Reaction Status Date / Time No Known Allergies Allergy Verified 09/22/16 13:49 - Current Living Status Usual Living Arrangement: With Spouse - Current Mental Status Evaluation Appearance: Well Groomed Attitude: Cooperative - Affect Affect: Full Range Appropriateness: Appropriate to Content - Mood Mood: Anxious - Speech/Language Expressive: Coherent - Psychomotor Activity Psychomotor Activity: Normal - Thought Process Thought Process: Intact - Thought Content Hallucinations: Absent Delusions: Absent - Self Perception Self Perception: No Impairment - Cognition Attention: Alert Orientation: Time Memory, Immediate Recall: Intact - Concentration Serial Sevens Intact: No Simple Calculations Intact: No - Abstraction Proverb Interpretation: Intact Judgement: Intact - Insight Insight: Intact - Impulse Control Impulse Control: Good Control - Suicidal Ideation Suicidal Ideation: No - Homicidal Ideation Homicidal Ideation: No Assessment/Plan 1) Patient is not suicidal at this time. 2) Continue with currant psych meds.
[2016-09-23 17:27] VITALS: BMI 27.3
[2016-09-23] MEDS ORDERED: PT OWN MED DRAWER 7, Y5N ONE (21:58)
[2016-09-24] MEDS: MECLIZINE HCL 25 MG TABLET (FP) PO SCH ×2 (06:26→14:46)
[2016-09-24] MEDS: METOCLOPRAMIDE HCL 10 MG TABLET (FP) PO SCH ×2 (06:26→14:46)
[2016-09-24] MEDS: INSULIN SLIDING SCALE (NOVOLOG) 1 VIAL SQ SCH ×2 (06:27→11:51)
[2016-09-24] MEDS ORDERED: INSULIN (NOVOLOG) ASPART 100 UNITS/ML 10ML VIAL ONE (06:44)
[2016-09-24] MEDS: ASPIRIN 325 MG ENTERIC COATED TABLET (FP) PO SCH (10:43)
[2016-09-24] MEDS: FOLIC ACID 1 MG TABLET (FP) PO SCH (10:43)
[2016-09-24] MEDS: levETIRAcetam 500 MG TABLET (FP) PO SCH (10:43)
[2016-09-24] MEDS: HEPARIN NA (PORCINE) 5,000 UNITS/ML 1ML VIAL SQ SCH (10:43)
[2016-09-24] MEDS: RANITIDINE HCL 150 MG TABLET (FP) PO SCH (10:44)
[2016-09-24] MEDS: METOPROLOL TARTRATE 25 MG TABLET (FP) PO SCH (10:44)
[2016-09-24] MEDS ORDERED: METOPROLOL TARTRATE 50 MG TABLET (FP) PO SCH (10:55)
--- NOTE | 2016-09-24 11:33 | PN ---
Progress Note, Physician Chief Complaint: patient seen and examined no chest pain today in bed comfortable thais [place] last night - Current Medication List Current Medications: Active Medications Aspirin (Ecotrin -) 325 mg PO DAILY [facility] Last Admin: 09/24/16 10:43 Dose: 325 mg Atorvastatin Calcium (Lipitor -) 40 mg PO HS [facility] Last Admin: 09/23/16 22:22 Dose: 40 mg Folic Acid (Folic Acid -) 1 mg PO DAILY [facility] Last Admin: 09/24/16 10:43 Dose: 1 mg Heparin Sodium (Porcine) (Heparin -) 5,000 unit SQ BID [facility] Last Admin: 09/24/16 10:43 Dose: 5,000 unit Insulin Aspart (Novolog Vial Sliding Scale -) 1 vial SQ ACHS [facility] PRN Reason: Protocol Last Admin: 09/24/16 06:27 Dose: Not Given Levetiracetam (Keppra -) 500 mg PO BID [facility] Last Admin: 09/24/16 10:43 Dose: 500 mg Meclizine HCl (Antivert -) 25 mg PO TID [facility] Last Admin: 09/24/16 06:26 Dose: 25 mg Metoclopramide HCl (Reglan -) 10 mg PO TID [facility] Last Admin: 09/24/16 06:26 Dose: 10 mg Metoprolol Tartrate (Lopressor -) 50 mg PO BID [facility] Quetiapine Fumarate (Seroquel Xr -) 150 mg PO HS [facility] Last Admin: 09/23/16 22:22 Dose: 150 mg Ranitidine HCl (Zantac -) 300 mg PO DAILY [facility] Last Admin: 09/24/16 10:44 Dose: 300 mg Ranolazine (Ranexa -) 500 mg PO BID [facility] Zolpidem Tartrate (Ambien -) 5 mg PO HS PRN PRN Reason: INSOMNIA - Objective Vital Signs: Vital Signs Temperature 98.2 F 09/24/16 09:08 Pulse Rate 88 09/24/16 09:08 Respiratory Rate 18 09/24/16 09:08 Blood Pressure 120/78 09/24/16 09:08 O2 Sat by Pulse Oximetry (%) 95 09/23/16 22:00 Constitutional: Yes: Calm Neck: Yes: Trachea Midline Cardiovascular: Yes: Regular Rate and Rhythm, S1, S2 Respiratory: Yes: CTA Bilaterally Gastrointestinal: Yes: Normal Bowel Sounds, Soft Edema: No Neurological: Yes: Alert, Oriented (lao speaking) Labs: CBC, BMP 09/23/16 06:34 09/23/16 06:00 INR, PTT INR 1.04 (0.82-1.09) 09/22/16 14:50 Problem List - Problems (1) Chest pain Assessment/Plan: echo done\ stress test noted ranexa bid metoprolol dose increased as well on aspirin and statin cardio follow up today for dc planning Code(s): R07.9 - CHEST PAIN, UNSPECIFIED Qualifiers: Chest pain type: precordial pain Qualified Code(s): R07.2 - Precordial pain (2) Hypercholesterolemia Assessment/Plan: statin Code(s): E78.0 - PURE HYPERCHOLESTEROLEMIA * DO NOT USE * (3) Anxiety disorder Assessment/Plan: xanax and seroquel Code(s): F41.9 - ANXIETY DISORDER, UNSPECIFIED (4) Seizure disorder Assessment/Plan: on keprra Code(s): G40.909 - EPILEPSY, UNSP, NOT INTRACTABLE, WITHOUT STATUS EPILEPTICUS
--- NOTE | 2016-09-24 12:39 | EKG ---
Test Reason : Blood Pressure : / mmHG Vent. Rate : 102 BPM Atrial Rate : 102 BPM P-R Int : 138 ms QRS Dur : 076 ms QT Int : 336 ms P-R-T Axes : 041 -19 049 degrees QTc Int : 437 ms SINUS TACHYCARDIA POSSIBLE LEFT ATRIAL ENLARGEMENT BORDERLINE ECG WHEN COMPARED WITH ECG OF 07-JUL-2016 13:26, VENT. RATE HAS INCREASED BY 37 BPM NONSPECIFIC T WAVE ABNORMALITY NO LONGER EVIDENT IN LATERAL LEADS Confirmed by MILO BAIRES, SIMONE ([id number]) on 09/24/2016 12:39:21 PM Referred By: Confirmed By:SIMONE PEDRAZA MD
--- NOTE | 2016-09-24 14:48 | PN ---
Progress Note, Physician Chief Complaint: no cp or sob tele negative History of Present Illness: 65M htn, niddm, chol, [place] many years ago, anxiety, seizure disorder, chest pain syndrome with a normal workup 2012 who presented to the ER with chest pain, nonexertional and brief, pinching in nature, without radiation or associated symptoms. No sob, orthopnea, PND, edema, palpitations, dizziness or syncope. Exercise tolerance is poor. Meds increased, no further symptoms. Seen by psychiatry for anxiety. ECG was normal and troponin was negative in ER. Echo 09/23/16 normal EF, LAE, ROE, mild MR TDS Nuclear Stress Test 09/23/16 no TID. EF 63% moderate sized mild intensity posterior ischemia. - Current Medication List Current Medications: Active Medications Aspirin (Ecotrin -) 325 mg PO DAILY [facility] Last Admin: 09/24/16 10:43 Dose: 325 mg Atorvastatin Calcium (Lipitor -) 40 mg PO HS [facility] Last Admin: 09/23/16 22:22 Dose: 40 mg Folic Acid (Folic Acid -) 1 mg PO DAILY [facility] Last Admin: 09/24/16 10:43 Dose: 1 mg Heparin Sodium (Porcine) (Heparin -) 5,000 unit SQ BID [facility] Last Admin: 09/24/16 10:43 Dose: 5,000 unit Insulin Aspart (Novolog Vial Sliding Scale -) 1 vial SQ ACHS [facility] PRN Reason: Protocol Last Admin: 09/24/16 11:51 Dose: Not Given Levetiracetam (Keppra -) 500 mg PO BID [facility] Last Admin: 09/24/16 10:43 Dose: 500 mg Meclizine HCl (Antivert -) 25 mg PO TID [facility] Last Admin: 09/24/16 06:26 Dose: 25 mg Metoclopramide HCl (Reglan -) 10 mg PO TID [facility] Last Admin: 09/24/16 06:26 Dose: 10 mg Metoprolol Tartrate (Lopressor -) 50 mg PO BID [facility] Quetiapine Fumarate (Seroquel Xr -) 150 mg PO HS [facility] Last Admin: 09/23/16 22:22 Dose: 150 mg Ranitidine HCl (Zantac -) 300 mg PO DAILY [facility] Last Admin: 09/24/16 10:44 Dose: 300 mg Ranolazine (Ranexa -) 500 mg PO BID [facility] Zolpidem Tartrate (Ambien -) 5 mg PO HS PRN PRN Reason: INSOMNIA - Objective Vital Signs: Vital Signs Temperature 98.2 F 09/24/16 09:08 Pulse Rate 88 09/24/16 09:08 Respiratory Rate 18 09/24/16 09:08 Blood Pressure 120/78 09/24/16 09:08 O2 Sat by Pulse Oximetry (%) 97 09/24/16 09:00 Constitutional: Yes: Well Nourished, No Distress Eyes: Yes: Conjunctiva Clear, EOM Intact HENT: Yes: Atraumatic, Normocephalic Neck: Yes: Supple, Trachea Midline Cardiovascular: Yes: Regular Rate and Rhythm Respiratory: Yes: Regular, CTA Bilaterally, Tachypnea Gastrointestinal: Yes: Normal Bowel Sounds Edema: No Peripheral Pulses WNL: Yes Labs: CBC, BMP 09/23/16 06:34 09/23/16 06:00 INR, PTT INR 1.04 (0.82-1.09) 09/22/16 14:50 Problem List - Problems (1) Chest pain Assessment/Plan: He has risk factors but a normal ECG, unremarkable echo, atypical symptoms and negative troponin. His stress test most likely represents artifact, but in the worst case represents 1 vessel CAD with a small ischemic burden and normal EF. Continue metoprolol 50 bid. Continue Ranexa 500 mg bid. will manage medically for now and be able to follow as outpatient. CV status is stable. Code(s): R07.9 - CHEST PAIN, UNSPECIFIED Qualifiers: Chest pain type: precordial pain Qualified Code(s): R07.2 - Precordial pain
[2016-09-24 14:49] VITALS: BP 107/66; PULSE 85; TEMP 98.3
--- NOTE | 2016-09-24 15:26 | DS ---
Physical Examination Vital Signs: Vital Signs Temperature 98.3 F 09/24/16 14:48 Pulse Rate 85 09/24/16 14:48 Respiratory Rate 18 09/24/16 09:08 Blood Pressure 107/66 09/24/16 14:48 O2 Sat by Pulse Oximetry (%) 97 09/24/16 09:00 Constitutional: Yes: Calm Neck: Yes: Trachea Midline Cardiovascular: Yes: Regular Rate and Rhythm, S1, S2 Respiratory: Yes: CTA Bilaterally Gastrointestinal: Yes: Normal Bowel Sounds, Soft Edema: No Neurological: Yes: Alert, Oriented Labs: CBC, BMP 09/23/16 06:34 09/23/16 06:00 Discharge Summary Reason For Visit: CHEST PAIN Current Active Problems Chest pain (Acute) Seizure disorder (Acute) Hospital Course: 65-year-old man with a significant past medical history of hypertension, hypercholesterolemia, myocardial infarction (25 years ago), diabetes mellitus, gastric ulcers, seizure disorders and anxiety who presents to the emergency department with complaints of chest pain. Patient still c/o intermittent chest pain last episode last night - Past Medical History VERIFICATION LEAD: Yes: Seizure Cardiovascular: Yes: HTN, Hyperlipdemia, [place] Gastrointestinal: Yes: GERD, Peptic Ulcer Disease Psych: Yes: Anxiety Musculoskeletal: Yes: Other (amputations of fingers rt hand) ENT: Yes: Allergic Rhinitis - Past Surgical History Past Surgical History: Yes: Amputation - Smoking History Smoking history: Current some day smoker Have you smoked in the past 12 months: No Aproximately how many cigarettes per day: 1 If you are a former smoker, when did you quit?: 2012 - Alcohol/Substance Use Hx Alcohol Use: Yes (OCCASIONALLY) got echo and stress test started on ranexa bid and BB dose icnreased Condition: Stable - Instructions Referrals: Brenda Araujo MD [Primary Care Provider] - - Home Medications Comprehensive Discharge Medication List: Ambulatory Orders Metoprolol Tartrate [Lopressor -] 25 mg PO BID #28 tab 07/02/16 Meclizine HCl [Antivert -] 25 mg PO TID 09/03/16 Metoclopramide HCl [Reglan -] 10 mg PO TID 09/03/16 Oxycodone HCl/Acetaminophen [Percocet 10-325 mg Tablet] 1 each PO BID PRN #14 tablet MDD 2 09/04/16 Ambien 10 mg PO DAILY 09/22/16 Folic Acid 1 mg PO DAILY 09/22/16 Metoprolol Succinate [Toprol Xl -] 25 mg PO DAILY 09/22/16 Naproxen [Naprosyn -] 500 mg PO DAILY 09/22/16 Quetiapine Fumarate "Xr" [Seroquel Xr -] 150 mg PO DAILY 09/22/16 Sennosides [Senna] 8.6 mg PO 09/22/16 Simvastatin 40 mg PO 09/22/16
[2016-09-24] MEDS ORDERED: RANOLAZINE E.R. 500 MG TABLET (FP) PO SCH (22:00)
== END 2016-09-24 15:59 | disposition home or self-care (01) | DRG 313 ==
LOC: JER 13:43 → JERBED 17:33 → J4S 09-23 15:37
PROVIDERS: ADMIT Family Medicine; ATTEND Family Medicine
DX: R07.89 Other chest pain (principal); G40.802 Other epilepsy, not intractable, without status epilepticus; I10 Essential (primary) hypertension; E78.00 Pure hypercholesterolemia, unspecified; I25.2 Old myocardial infarction; E11.9 Type 2 diabetes mellitus without complications; K25.9 Gastric ulcer, unspecified as acute or chronic, without hemorrhage or perforation; F41.9 Anxiety disorder, unspecified; F17.210 Nicotine dependence, cigarettes, uncomplicated; K21.9 Gastro-esophageal reflux disease without esophagitis; J30.9 Allergic rhinitis, unspecified; Z86.79 Personal history of other diseases of the circulatory system; Z89.022 Acquired absence of left finger(s)
CPT/HCPCS: 36415; 71010-TC; 71275-TC; 78452-TC; 80053; 80061; 82550; 83036; 83721; 83880; 84484; 85025; 85610; 93005; 93010; 93017; 93306-TC; 99285-25; A9502; J1245; J1644

== ENCOUNTER 2017-05-28 13:57 | Observation (INO) | payer MEDICARE, OTHER ==
--- NOTE | 2017-05-28 14:08 | PDOC ---
Rapid Medical Evaluation Time Seen by Provider: 05/28/17 14:06 Medical Evaluation: Allergies Allergy/AdvReac Type Severity Reaction Status Date / Time No Known Allergies Allergy Verified 09/22/16 13:49 I have performed a brief in-person evaluation of this patient. The patient presents with a chief complaint of: constipation x 10 days; b/l leg pain x 1 week Pertinent physical exam findings: none I have ordered the following: abd xray The patient will proceed to the ED for further evaluation. Discharge Disposition - Referrals Referrals: Brenda Araujo MD [Primary Care Provider] - - Patient Instructions - Post Discharge Activity
--- NOTE | 2017-05-28 17:10 | PDOC ---
History of Present Illness - General Chief Complaint: Constipation Stated Complaint: WEAKNESS,CONSTIPATION 10+ Time Seen by Provider: 05/28/17 14:06 History Source: Patient Exam Limitations: Language Barrier - History of Present Illness Initial Comments: 05/28/17 17:05 66 y/o M with PMH HTN, HLD, [place] (25 yrs ago), DM (states compliant; BG monitored by niece), gastric ulcers, seizure disorders, anxiety, previous MRI- revealing thoracic compression fx, who presents to the ED with lower extremity weakness x 1 month. As per pt, over the last month, he has been unable to ambulate well. He states that he has lumbar pain a/w numbness and tingling in his lower extremities, as well as urinary incontinence and constipation. Pt also endorses SOB when lying flat, stating that she needs to "sit up to catch his breath." Denies BARNES, fever, chills, chest or abdominal pain. Over the last year, patient has noticed a 20 pound weight loss, without changes in appetite or night sweats. PMH: HTN, HLD, [place] (25 yrs ago), DM (states compliant; BG monitored by niece), gastric ulcers, seizure disorders, anxiety, previous MRI- revealing thoracic compression fx PsxH: amputation- L 2nd, 4th, 5th digits (past accident; caught on machine) meds: pt unaware of meds currently on allergies: NKDA FH: significant for early cardiac in numerous family members- ~age 44 SH: currently not working, quit smoking 20 yrs ago (prev smoked 1 cigarette/day for 10 yrs), drinks alcohol socially. Denies recreational drug use Past History - Past Medical History Allergies/Adverse Reactions: Allergies Allergy/AdvReac Type Severity Reaction Status Date / Time No Known Allergies Allergy Verified 05/28/17 14:07 Home Medications: Ambulatory Orders Meclizine HCl [Antivert -] 25 mg PO TID 09/03/16 Metoclopramide HCl [Reglan -] 10 mg PO TID 09/03/16 Folic Acid 1 mg PO DAILY 09/22/16 Quetiapine Fumarate "Xr" [Seroquel XR] 150 mg PO DAILY 09/22/16 Aspirin Coated [Ecotrin -] 325 mg PO DAILY #30 tab MDD 1 09/24/16 Atorvastatin Ca [Lipitor] 40 mg PO HS #30 tablet MDD 1 09/24/16 Metoprolol Tartrate [Lopressor -] 50 mg PO BID #60 tablet MDD 2 09/24/16 Ranolazine [Ranexa -] 500 mg PO BID #60 tab MDD 2 09/24/16 Alprazolam [Xanax] 0.25 mg PO BID PRN #10 tablet MDD 2 05/29/17 levETIRAcetam [Keppra -] 500 mg PO BID #60 tablet MDD 2 05/29/17 Anemia: No Asthma: No Cancer: No Cardiac Disorders: Yes (NE 25 years ago) CVA: No COPD: No CHF: No Dementia: No Diabetes: Yes GI Disorders: Yes (ulcers) Disorders: No HTN: Yes Hypercholesterolemia: Yes Liver Disease: No Psychiatric Problems: Yes Seizures: Yes (2010) Thyroid Disease: No - Surgical History Abdominal Surgery: No Appendectomy: No Cardiac Surgery: No Cholecystectomy: No Lung Surgery: No Neurologic Surgery: No Orthopedic Surgery: Yes (L. Hand 2, 3, 4, 5 fingers amputated) - Family Disease History Family Disease History: Heart Disease: Father, Brother - Immunization History Immunization Up to Date: Yes - Suicide/Smoking/Psychosocial Hx Smoking Status: No Smoking History: Former smoker Have you smoked in the past 12 months: No Number of Cigarettes Smoked Daily: 1 If you are a former smoker, when did you quit?: 2012 Information on smoking cessation initiated: No 'Breaking Loose' booklet given: 09/23/16 Hx Alcohol Use: Yes (OCCASIONALLY,last drink 5daysago, 3 cans of beer) Drug/Substance Use Hx: No Substance Use Type: None, Alcohol Hx Substance Use Treatment: No Review of Systems - Review of Systems Able to Perform ROS?: Yes Is the patient limited Swiss proficient: Yes Constitutional: Yes: Weakness Respiratory: Yes: Orthopnea, Shortness of Breath Cardiac (ROS): Yes: Edema (lower extremity edema 1+ ) ABD/GI: Yes: Abdominal Distended : Yes: Incontinence Musculoskeletal: Yes: Muscle Weakness Neurological: Yes: Numbness, Tingling (in lower extremities) Endocrine: Yes: Unexplained Weight Loss All Other Systems: Reviewed and Negative *Physical Exam - Vital Signs Last Vital Signs Temp Pulse Resp BP Pulse Ox 98.5 F 102 H 17 162/103 97 05/28/17 14:07 05/28/17 14:07 05/28/17 14:07 05/28/17 14:07 05/28/17 14:07 - Physical Exam General Appearance: Yes: Appropriately Dressed, Obese HEENT: positive: EOMI, JENNI, Normal ENT Inspection Neck: positive: Lymphadenopathy (L) Respiratory/Chest: positive: Lungs Clear, Normal Breath Sounds Cardiovascular: positive: Regular Rhythm, Regular Rate Vascular Pulses: Dorsalis-Pedis (R): 2+, Doralis-Pedis (L): 2+ Gastrointestinal/Abdominal: positive: Distended Rectal Exam: positive: normal rectal tone Extremity: positive: Other (1+ edema b/l, 3/5 motor strength lower extremities. 4/5 upper extremities ) Neurologic: positive: hybrid technologist II-XII NML intact ED Treatment Course - LABORATORY CBC & Chemistry Diagram: 05/29/17 05:46 05/29/17 05:46 Medical Decision Making - Medical Decision Making 05/28/17 17:49 66 y/o M with PMH HTN, HLD, [place] (25 yrs ago), DM (states compliant; BG monitored by niece), gastric ulcers, seizure disorders, anxiety, previous MRI- revealing thoracic compression fx, who presents to the ED with lower extremity weakness x 1 month. Pt afebrile, however tachycardic to 102 with elevated BP. with lumbar back pain, lower extremity numbness and tingling, constipation, urinary incontinence. Will need to r/o cauda equina syndrome, f/u lumbar MRI spine, and check rectal tone. Other differentials include diabetic neuropathy. Will order the following CBC with diff BMP lumbar spine- MRI w/o contrast- r/o cauda equina pre-op coags - PT/PTT ECHO-pt with CHF sx, last ECHO in September Will check rectal tone 05/28/17 18:03 Pt with normal rectal tone. Labs, imaging pending 05/28/17 18:40 Pt for ED-obs, microblog sent to [facility] 05/28/17 18:41 CBC WNL, BMP pending *DC/Admit/Observation/Transfer - Prescriptions - Referrals - Patient Instructions - Post Discharge Activity
[2017-05-28 18:17] LABS: BASO % 0.5 % (0-2.0); HEMATOCRIT 39.9 % (35.4-49); HEMOGLOBIN 13.3 GM/dL (11.7-16.9); LYMPH % 33.5 % (8-40); MCH 28.2 pg (25.7-33.7); MCHC 33.4 g/dl (32.0-35.9); MEAN CELL VOLUME 84.5 fl (80-96); MEAN PLT VOLUME 9.7 fl (7.5-11.1); MONO % 6.4 % (3.8-10.2); NEUT % 56.6 % (42.8-82.8); PLATELET COUNT 160 K/MM3 (134-434); RBC 4.72 M/mm3 (4.00-5.60); RDW 13.7 % (11.9-15.9); WHITE BLOOD COUNT 5.9 K/mm3 (4.0-10.0)
--- NOTE | 2017-05-28 18:23 | PDOC ---
Attending Attestation - HPI HPI: 05/28/17 20:12 "The patient is a 66 year old male, with a significant past medical history of HTN, HLD, [place] (25 yrs ago), DM (states compliant; BG monitored by niece), gastric ulcers, seizure disorders, anxiety, thoracic compression fx, who presents to the emergency department with weakness in his lower extremities, numbness and tingling, Shortness of breath, and lower extremity swelling over the past month. He notes that his weakness has caused him to stop ambulating. He also reports urinary and fecal incontinence which is new for him. He also reports unintentional weight loss of 20 pounds over the past year. The patient denies chest pain, headache and dizziness. Denies fever, chills, nausea, vomit, diarrhea and constipation. Denies dysuria, frequency, urgency and hematuria. Allergies: NKDA Past surgical history: amputation- L 2nd, 4th, 5th digits (past accident; caught on machine) Social history: Quit smoking 20 yrs ago (prev smoked 1 cigarette/day for 10 yrs) , drinks alcohol socially. Denies recreational drug use " - Physicial Exam PE: 05/28/17 20:12 "GENERAL: Awake, alert, and fully oriented, in no acute distress HEAD: No signs of trauma, normocephalic, atraumatic EYES: PERRLA, EOMI, sclera anicteric, conjunctiva clear ENT: Auricles normal inspection, hearing grossly normal, nares patent, oropharynx clear without exudates. Moist mucosa NECK: Normal ROM, supple, no lymphadenopathy, JVD, or masses LUNGS: No distress, speaks full sentences, clear to auscultation bilaterally HEART: Regular rate and rhythm, normal S1 and S2, no murmurs, rubs or gallops, peripheral pulses normal and equal bilaterally. ABDOMEN: Soft, nontender, normoactive bowel sounds. No guarding, no rebound. No masses EXTREMITIES : Normal inspection, Normal range of motion, no edema. No clubbing or cyanosis. NEUROLOGICAL: Cranial nerves II through XII grossly intact. Normal speech, 3/5 LE strength b/l. Normal reflexes, normal rectal tone SKIN: Warm, Dry, normal turgor, no rashes or lesions noted. " <Aries Tsai - Last Filed: 05/28/17 20:12> - Resident Resident Name: Maira Schuler - ED Attending Attestation I have performed the following: I have examined & evaluated the patient, The case was reviewed & discussed with the resident, I agree w/resident's findings & plan, Exceptions are as noted - Medical Decision Making 05/28/17 18:14 66-year-old male with a history of compression fracture of the spine presents with progressive lumbar back pain associated with weakness and numbness in the lower extremities and stool retention/urinary incontinence. Vitals initially with mild tachycardia to 102. Exam with weakness of the lower extremities, difficulty ambulating. Concern for cauda equina, pt has been ordered for stat MRI lumbar spine. Labs ordered as well, will reassess. 05/28/17 21:50 MRI with no evidence of cauda equina. pt still with pain and inability to ambulated, admitted to Dr. Cohen for further eval/mgmt Case discussed in detail with admitting physician including history, physical exam and ancillary studies. Admitting physician has assumed care for the patient, will follow all pending diagnostics and will complete the evaluation and treatment. <Remedios Burgess - Last Filed: 05/28/17 21:51>
[2017-05-28 18:30] LABS: INR 1.02 (0.82-1.09); PROTHROMBIN TIME (PATIENT) 11.5 SEC (9.98-11.88)
[2017-05-28 18:48] LABS: ANION GAP 8 (8-16); BLOOD UREA NITROGEN 14 mg/dL (7-18); CALCIUM 9.1 mg/dL (8.5-10.1); CHLORIDE 105 mmol/L (98-107); CO2 27 mmol/L (21-32); GLUCOSE,RANDOM 95 mg/dL (74-106); POTASSIUM 4.3 mmol/L (3.5-5.1); SODIUM 140 mmol/L (136-145)
[2017-05-28] MEDS ORDERED: SODIUM PHOSPHATE/NA BIPHOS 133 ML ENEMA PR ONE (20:56)
--- NOTE | 2017-05-28 20:58 | HP ---
CHIEF COMPLAINT: Back Pain, Constipation PCP: Dr. Araujo HISTORY OF PRESENT ILLNESS: This is a 66 y/o man who presents to the ED with back pain, constipation x 10 days and leg pain x 1 week. Patient denies recent fall or trauma. Patient denies numbness, bowel or bladder incontinence. Patient denies fever, chills, cough, SOB, CP, palpitations, N/V/D, dysuria. ER course was notable for: (1) MRI LSP- mild T12, L1 vertebral compression fractures (2) Abd Xray- non obstructive bowel gas pattern (3) Recent Travel: PAST MEDICAL HISTORY: PAST SURGICAL HISTORY: Social History: Smoking: Alcohol: Drugs: Family History: Allergies No Known Allergies Allergy (Verified 05/28/17 14:07) HOME MEDICATIONS: Home Medications Medication Instructions Recorded Meclizine HCl [Antivert -] 25 mg PO TID 09/03/16 Metoclopramide HCl [Reglan -] 10 mg PO TID 09/03/16 Folic Acid 1 mg PO DAILY 09/22/16 Quetiapine Fumarate "Xr" [Seroquel 150 mg PO DAILY 09/22/16 XR] Alprazolam [Xanax] 0.25 mg PO DAILY PRN #7 tablet MDD 09/24/16 1 Aspirin Coated [Ecotrin -] 325 mg PO DAILY #30 tab MDD 1 09/24/16 Atorvastatin Ca [Lipitor] 40 mg PO HS #30 tablet MDD 1 09/24/16 Metoprolol Tartrate [Lopressor -] 50 mg PO BID #60 tablet MDD 2 09/24/16 Ranolazine [Ranexa -] 500 mg PO BID #60 tab MDD 2 09/24/16 levETIRAcetam [Keppra -] 500 mg PO BID #60 tablet MDD 2 09/24/16 REVIEW OF SYSTEMS CONSTITUTIONAL: Absent: fever, chills, diaphoresis, generalized weakness, malaise, loss of appetite, weight change HEENT: Absent: rhinorrhea, nasal congestion, throat pain, throat swelling, difficulty swallowing, mouth swelling, ear pain, eye pain, visual changes CARDIOVASCULAR: Absent: chest pain, syncope, palpitations, irregular heart rate, lightheadedness , peripheral edema RESPIRATORY: Absent: cough, shortness of breath, dyspnea with exertion, orthopnea, wheezing, stridor, hemoptysis GASTROINTESTINAL: Absent: abdominal pain, abdominal distension, nausea, vomiting, diarrhea, constipation, melena, hematochezia GENITOURINARY: Absent: dysuria, frequency, urgency, hesitancy, hematuria, flank pain, genital pain MUSCULOSKELETAL: Absent: myalgia, arthralgia, joint swelling, back pain, neck pain SKIN: Absent: rash, itching, pallor HEMATOLOGIC/IMMUNOLOGIC: Absent: easy bleeding, easy bruising, lymphadenopathy, frequent infections ENDOCRINE: Absent: unexplained weight gain, unexplained weight loss, heat intolerance, cold intolerance NEUROLOGIC: Absent: headache, focal weakness or paresthesias, dizziness, unsteady gait, seizure, mental status changes, bladder or bowel incontinence PSYCHIATRIC: Absent: anxiety, depression, suicidal or homicidal ideation, hallucinations. PHYSICAL EXAMINATION Vital Signs - 24 hr 05/28/17 05/28/17 14:07 18:36 Temperature 98.5 F 98.0 F Pulse Rate 102 H Pulse Rate [ 93 H Right] Respiratory 17 20 Rate Blood Pressure 162/103 Blood Pressure 146/99 [Right Arm] O2 Sat by Pulse 97 100 Oximetry (%) GENERAL: Awake, alert, and fully oriented, in no acute distress. HEAD: Normal with no signs of trauma. EYES: Pupils equal, round and reactive to light, extraocular movements intact, sclera anicteric, conjunctiva clear. No lid lag. EARS, NOSE, THROAT: Ears normal, nares patent, oropharynx clear without exudates. Moist mucous membranes. NECK: Normal range of motion, supple without lymphadenopathy, JVD, or masses. LUNGS: Breath sounds equal, clear to auscultation bilaterally. No wheezes, and no crackles. No accessory muscle use. HEART: Regular rate and rhythm, normal S1 and S2 without murmur, rub or gallop. ABDOMEN: Soft, nontender, not distended, normoactive bowel sounds, no guarding, no rebound, no masses. No hepatomegaly or splenomegaly. MUSCULOSKELETAL: Normal range of motion at all joints. No bony deformities or tenderness. No CVA tenderness. UPPER EXTREMITIES: 2+ pulses, warm, well-perfused. No cyanosis. No clubbing. No peripheral edema. LOWER EXTREMITIES: 2+ pulses, warm, well-perfused. No calf tenderness. No peripheral edema. NEUROLOGICAL: Cranial nerves II-XII intact. Normal speech. Normal gait. PSYCHIATRIC: Cooperative. Good eye contact. Appropriate mood and affect. SKIN: Warm, dry, normal turgor, no rashes or lesions noted, normal capillary refill. Laboratory Results - last 24 hr 05/28/17 05/28/17 05/28/17 17:45 17:45 17:45 WBC 5.9 RBC 4.72 Hgb 13.3 Hct 39.9 MCV 84.5 MCH 28.2 MCHC 33.4 RDW 13.7 Plt Count 160 MPV 9.7 Neutrophils % 56.6 Lymphocytes % 33.5 D Monocytes % 6.4 Eosinophils % 3.0 Basophils % 0.5 PT with INR 11.50 INR 1.02 PTT (Actin FS) Sodium 140 Potassium 4.3 Chloride 105 Carbon Dioxide 27 Anion Gap 8 BUN 14 D Creatinine 1.0 Random Glucose 95 D Calcium 9.1 05/28/17 17:45 WBC RBC Hgb Hct MCV MCH MCHC RDW Plt Count MPV Neutrophils % Lymphocytes % Monocytes % Eosinophils % Basophils % PT with INR INR PTT (Actin FS) 19.8 L D Sodium Potassium Chloride Carbon Dioxide Anion Gap BUN Creatinine Random Glucose Calcium ASSESSMENT/PLAN: Problem List - Problem (1) Back pain Assessment/Plan: - MRI LSP- Disc Herniation, mild T12, L1 vertebral compression fractures - Consider Neurosurgery Consult - Monitor vitals Code(s): M54.9 - DORSALGIA, UNSPECIFIED (2) Constipation Assessment/Plan: - Abdominal Xray- non obstructive bowel gas pattern, ?impacted stool impaction - Fleet Enema - Consider RD for high fiber recommendations Code(s): K59.00 - CONSTIPATION, UNSPECIFIED (3) Unsteady gait Assessment/Plan: - Fall precautions - PT for conditioning Code(s): R26.81 - UNSTEADINESS ON FEET (4) Seizure disorder Assessment/Plan: - Stable - Continue home meds when verified - Seizure Precautions Code(s): G40.909 - EPILEPSY, UNSP, NOT INTRACTABLE, WITHOUT STATUS EPILEPTICUS (5) Anxiety disorder Assessment/Plan: - Continue Xanax when verified Code(s): F41.9 - ANXIETY DISORDER, UNSPECIFIED (6) Hypercholesterolemia Assessment/Plan: - Continue home med when verified - Monitor LFTs Code(s): E78.0 - PURE HYPERCHOLESTEROLEMIA * DO NOT USE * (7) DM Diabetes mellitus type 2 Assessment/Plan: - Stable - BGMs - ISS - Monitor renal function Code(s): E11.9 - TYPE 2 DIABETES MELLITUS WITHOUT COMPLICATIONS (8) Essential hypertension Assessment/Plan: - Suboptimal - Monitor BP - Continue home meds when verified with PCP in am, patient unable to confirm meds Code(s): I10 - ESSENTIAL (PRIMARY) HYPERTENSION (9) History of CVA (cerebrovascular accident) Assessment/Plan: - No residual deficit noted - Ambulates with cane - Fall Precautions Code(s): Z86.73 - PRSNL HX OF TIA (TIA), AND CEREB INFRC W/O RESID DEFICITS (10) History of coronary artery disease Assessment/Plan: - Continue home meds, when verified Code(s): Z86.79 - PERSONAL HISTORY OF OTHER DISEASES OF THE CIRCULATORY SYSTEM (11) History of heart artery stent Assessment/Plan: - s/p stent Code(s): Z95.5 - PRESENCE OF CORONARY ANGIOPLASTY IMPLANT AND GRAFT (12) DVT prophylaxis Assessment/Plan: - OOB - SCDs Code(s): RLF4112 - Visit type - Emergency Visit Emergency Visit: Yes ED Registration Date: 05/28/17 Care time: The patient presented to the Emergency Department on the above date and was hospitalized for further evaluation of their emergent condition. - New Patient This patient is new to me today: Yes Date on this admission: 05/28/17 - Critical Care Critical Care patient: No
[2017-05-29] MEDS ORDERED: ALPRAZolam 0.25 MG TABLET PO ONE (01:58)
[2017-05-29] MEDS ORDERED: ALPRAZolam 0.25 MG TABLET ONE ×3 (02:09→22:41)
[2017-05-29 02:38] LABS: URINE APPEARANCE CLEAR; URINE BILIRUBIN NEGATIVE (NEGATIVE); URINE BLOOD NEGATIVE (NEGATIVE); URINE COLOR YELLOW; URINE GLUCOSE (UA) NEGATIVE (NEGATIVE); URINE KETONE TRACE (NEGATIVE); URINE LEUK ESTERASE NEGATIVE (NEGATIVE); URINE NITRITE NEGATIVE (NEGATIVE)
[2017-05-29 02:40] LABS: URINE PROTEIN 1+ (NEGATIVE)
[2017-05-29 02:42] LABS: URINE BACTERIA RARE /hpf (NONE SEEN); URINE HYALINE CAST 6 /lpf; URINE MUCUS FEW
[2017-05-29 07:04] LABS: BASO % 0.5 % (0-2.0); EOS % 4.8 % (0-4.5); HEMATOCRIT 37.9 % (35.4-49); HEMOGLOBIN 12.6 GM/dL (11.7-16.9); LYMPH % 37.8 % (8-40); MCH 27.9 pg (25.7-33.7); MCHC 33.3 g/dl (32.0-35.9); MEAN CELL VOLUME 83.9 fl (80-96); MEAN PLT VOLUME 9.5 fl (7.5-11.1); MONO % 7.2 % (3.8-10.2); NEUT % 49.7 % (42.8-82.8); PLATELET COUNT 141 K/MM3 (134-434); RBC 4.52 M/mm3 (4.00-5.60); RDW 13.7 % (11.9-15.9)
[2017-05-29] MEDS ORDERED: INSULIN DETEMIR 100 UNITS/ML MDV SQ ONE (07:11)
[2017-05-29 07:19] LABS: ANION GAP 8 (8-16); BLOOD UREA NITROGEN 17 mg/dL (7-18); CALCIUM 9.4 mg/dL (8.5-10.1); CHLORIDE 104 mmol/L (98-107); CO2 29 mmol/L (21-32); GLUCOSE,RANDOM 121 mg/dL (74-106); POTASSIUM 3.7 mmol/L (3.5-5.1); SODIUM 141 mmol/L (136-145)
--- NOTE | 2017-05-29 10:38 | PN ---
Progress Note, Physician - Objective Vital Signs: Vital Signs Temperature 98.0 F 05/28/17 18:36 Pulse Rate 93 H 05/28/17 18:36 Respiratory Rate 20 05/28/17 18:36 Blood Pressure 146/99 05/28/17 18:36 O2 Sat by Pulse Oximetry (%) 100 05/28/17 18:36 Cardiovascular: Yes: Regular Rate and Rhythm Respiratory: Yes: Regular, CTA Bilaterally Gastrointestinal: Yes: Normal Bowel Sounds, Soft Edema: No Neurological: Yes: Alert, Oriented, Other (able to walk in er). No: Pre- Existing Deficit, Weakness ( of lower extremeties but able to stand and walk) Labs: CBC, BMP 05/29/17 05:46 05/29/17 05:46 INR, PTT INR 1.02 (0.82-1.09) 05/28/17 17:45 Problem List - Problems (1) Seizure disorder Assessment/Plan: continue with meds Code(s): G40.909 - EPILEPSY, UNSP, NOT INTRACTABLE, WITHOUT STATUS EPILEPTICUS (2) Unsteady gait Assessment/Plan: physical therapy outpatient work up Code(s): R26.81 - UNSTEADINESS ON FEET (3) Back pain Assessment/Plan: -improved - no significant pain at this time Code(s): M54.9 - DORSALGIA, UNSPECIFIED (4) DM Diabetes mellitus type 2 Assessment/Plan: bgm monitor on current meds Code(s): E11.9 - TYPE 2 DIABETES MELLITUS WITHOUT COMPLICATIONS
[2017-05-29] MEDS ORDERED: levETIRAcetam 500 MG TABLET (FP) PO ONE ×2 (10:54→21:34)
[2017-05-29] MEDS: ALPRAZolam 0.25 MG TABLET PO PRN ×2 (10:58→22:41)
[2017-05-29] MEDS: levETIRAcetam 500 MG TABLET (FP) PO SCH ×2 (10:58→21:47)
[2017-05-29] MEDS: MECLIZINE HCL 25 MG TABLET (FP) PO SCH ×2 (14:50→21:47)
[2017-05-29] MEDS: METOCLOPRAMIDE HCL 10 MG TABLET (FP) PO SCH ×2 (14:50→21:47)
[2017-05-29] MEDS ORDERED: METOPROLOL TARTRATE 50 MG TABLET (FP) ONE (21:35)
[2017-05-29] MEDS ORDERED: ATORVASTATIN CA 40 MG TABLET (FP) ONE (21:35)
[2017-05-29] MEDS: METOPROLOL TARTRATE 50 MG TABLET (FP) PO SCH (21:48)
[2017-05-29] MEDS: ATORVASTATIN CA 40 MG TABLET (FP) PO SCH (21:48)
[2017-05-29] MEDS: RANOLAZINE E.R. 500 MG TABLET (FP) PO SCH (22:02)
[2017-05-30 02:25] VITALS: BMI 29.8
[2017-05-30] MEDS: MECLIZINE HCL 25 MG TABLET (FP) PO SCH ×3 (06:03→21:30)
[2017-05-30] MEDS: METOCLOPRAMIDE HCL 10 MG TABLET (FP) PO SCH ×3 (06:03→21:29)
[2017-05-30] MEDS: levETIRAcetam 500 MG TABLET (FP) PO SCH ×2 (10:32→21:30)
[2017-05-30] MEDS: RANOLAZINE E.R. 500 MG TABLET (FP) PO SCH ×2 (10:32→21:30)
[2017-05-30] MEDS: FOLIC ACID 1 MG TABLET (FP) PO SCH (10:32)
[2017-05-30] MEDS: METOPROLOL TARTRATE 50 MG TABLET (FP) PO SCH ×2 (10:32→21:29)
--- NOTE | 2017-05-30 12:36 | PN ---
Progress Note, Physician - Current Medication List Current Medications: Active Medications Alprazolam (Xanax -) 0.25 mg PO BID PRN PRN Reason: ANXIETY Last Admin: 05/29/17 22:41 Dose: 0.25 mg Atorvastatin Calcium (Lipitor -) 40 mg PO HS [facility] Last Admin: 05/29/17 21:48 Dose: 40 mg Folic Acid (Folic Acid -) 1 mg PO DAILY [facility] Last Admin: 05/30/17 10:32 Dose: 1 mg Levetiracetam (Keppra -) 500 mg PO BID [facility] Last Admin: 05/30/17 10:32 Dose: 500 mg Meclizine HCl (Antivert -) 25 mg PO TID [facility] Last Admin: 05/30/17 06:03 Dose: 25 mg Metoclopramide HCl (Reglan -) 10 mg PO TID [facility] Last Admin: 05/30/17 06:03 Dose: 10 mg Metoprolol Tartrate (Lopressor -) 50 mg PO BID [facility] Last Admin: 05/30/17 10:32 Dose: 50 mg Quetiapine Fumarate (Seroquel Xr -) 150 mg PO DAILY [facility] Ranolazine (Ranexa -) 500 mg PO BID [facility] Last Admin: 05/30/17 10:32 Dose: 500 mg - Objective Vital Signs: Vital Signs Temperature 98.4 F 05/30/17 10:00 Pulse Rate 74 05/30/17 10:00 Respiratory Rate 19 05/30/17 10:00 Blood Pressure 145/87 05/30/17 10:00 O2 Sat by Pulse Oximetry (%) 99 05/30/17 00:04 Cardiovascular: Yes: Regular Rate and Rhythm Respiratory: Yes: Regular, CTA Bilaterally Gastrointestinal: Yes: Normal Bowel Sounds, Soft Labs: CBC, BMP 05/29/17 05:46 05/29/17 05:46 INR, PTT INR 1.02 (0.82-1.09) 05/28/17 17:45 Problem List - Problems (1) Seizure disorder Assessment/Plan: continue with meds Code(s): G40.909 - EPILEPSY, UNSP, NOT INTRACTABLE, WITHOUT STATUS EPILEPTICUS (2) Unsteady gait Assessment/Plan: physical therapy outpatient work up Code(s): R26.81 - UNSTEADINESS ON FEET (3) Back pain Assessment/Plan: -improved - no significant pain at this time Code(s): M54.9 - DORSALGIA, UNSPECIFIED (4) DM Diabetes mellitus type 2 Assessment/Plan: bgm monitor on current meds Code(s): E11.9 - TYPE 2 DIABETES MELLITUS WITHOUT COMPLICATIONS (5) Numbness and tingling of both lower extremities Assessment/Plan: neuro consult emg Code(s): R20.0 - ANESTHESIA OF SKIN; R20.2 - PARESTHESIA OF SKIN (6) History of coronary artery disease Assessment/Plan: ekg echo Code(s): Z86.79 - PERSONAL HISTORY OF OTHER DISEASES OF THE CIRCULATORY SYSTEM
[2017-05-30] MEDS: GABAPENTIN 100 MG CAPSULE (FP) PO SCH ×2 (14:48→21:29)
[2017-05-30] MEDS ORDERED: PT OWN MED DRAWER 7, Y5N ONE (14:48)
[2017-05-30] MEDS: ALPRAZolam 0.25 MG TABLET PO PRN (21:29)
[2017-05-30] MEDS: ATORVASTATIN CA 40 MG TABLET (FP) PO SCH (21:30)
[2017-05-31] MEDS: GABAPENTIN 100 MG CAPSULE (FP) PO SCH ×3 (06:37→21:32)
[2017-05-31] MEDS: MECLIZINE HCL 25 MG TABLET (FP) PO SCH ×3 (06:37→21:43)
[2017-05-31] MEDS: METOCLOPRAMIDE HCL 10 MG TABLET (FP) PO SCH ×3 (06:37→21:43)
[2017-05-31] MEDS ORDERED: PT OWN MED DRAWER 7, Y5N ONE (10:07)
[2017-05-31] MEDS: METOPROLOL TARTRATE 50 MG TABLET (FP) PO SCH ×2 (10:13→21:33)
[2017-05-31] MEDS: FOLIC ACID 1 MG TABLET (FP) PO SCH (10:13)
[2017-05-31] MEDS: levETIRAcetam 500 MG TABLET (FP) PO SCH ×2 (10:13→21:32)
[2017-05-31] MEDS: RANOLAZINE E.R. 500 MG TABLET (FP) PO SCH ×2 (10:13→21:33)
--- NOTE | 2017-05-31 13:43 | PN ---
Progress Note, Physician Chief Complaint: awaiting PT eval and echo and EMG ccm referral made for VNS - Current Medication List Current Medications: Active Medications Alprazolam (Xanax -) 0.25 mg PO BID PRN PRN Reason: ANXIETY Last Admin: 05/30/17 21:29 Dose: 0.25 mg Atorvastatin Calcium (Lipitor -) 40 mg PO HS [facility] Last Admin: 05/30/17 21:30 Dose: 40 mg Folic Acid (Folic Acid -) 1 mg PO DAILY [facility] Last Admin: 05/31/17 10:13 Dose: 1 mg Gabapentin (Neurontin -) 100 mg PO TID [facility] Last Admin: 05/31/17 06:37 Dose: 100 mg Insulin Aspart (Novolog Vial Sliding Scale -) 1 vial SQ ACHS [facility] PRN Reason: Protocol Levetiracetam (Keppra -) 500 mg PO BID [facility] Last Admin: 05/31/17 10:13 Dose: 500 mg Meclizine HCl (Antivert -) 25 mg PO TID [facility] Last Admin: 05/31/17 06:37 Dose: 25 mg Metoclopramide HCl (Reglan -) 10 mg PO TID [facility] Last Admin: 05/31/17 06:37 Dose: 10 mg Metoprolol Tartrate (Lopressor -) 50 mg PO BID [facility] Last Admin: 05/31/17 10:13 Dose: 50 mg Quetiapine Fumarate (Seroquel Xr -) 150 mg PO DAILY [facility] Last Admin: 05/31/17 10:13 Dose: 150 mg Ranolazine (Ranexa -) 500 mg PO BID [facility] Last Admin: 05/31/17 10:13 Dose: 500 mg - Objective Vital Signs: Vital Signs Temperature 98.6 F 05/31/17 10:00 Pulse Rate 68 05/31/17 10:00 Respiratory Rate 20 05/31/17 10:00 Blood Pressure 123/74 05/31/17 10:00 O2 Sat by Pulse Oximetry (%) 99 05/31/17 12:00 Constitutional: Yes: Calm Cardiovascular: Yes: Regular Rate and Rhythm, S1, S2 Respiratory: Yes: CTA Bilaterally Gastrointestinal: Yes: Normal Bowel Sounds, Soft Edema: No Neurological: Yes: Alert, Oriented Labs: CBC, BMP 05/29/17 05:46 05/29/17 05:46 INR, PTT INR 1.02 (0.82-1.09) 05/28/17 17:45 Problem List - Problems (1) Numbness and tingling of both lower extremities Assessment/Plan: PT eval emg neurology neurontin Code(s): R20.0 - ANESTHESIA OF SKIN; R20.2 - PARESTHESIA OF SKIN (2) Unsteady gait Assessment/Plan: PT eval Code(s): R26.81 - UNSTEADINESS ON FEET (3) DM Diabetes mellitus type 2 Assessment/Plan: hgba1c 9.9 uncontrolled sliding scale will need insulin/ oral hypogylcemic on discharge Code(s): E11.9 - TYPE 2 DIABETES MELLITUS WITHOUT COMPLICATIONS (4) Anxiety disorder Assessment/Plan: xanax Code(s): F41.9 - ANXIETY DISORDER, UNSPECIFIED (5) Hypercholesterolemia Assessment/Plan: elevated LDL now slightly better TG trending down Code(s): E78.0 - PURE HYPERCHOLESTEROLEMIA * DO NOT USE *
--- NOTE | 2017-05-31 16:25 | CONS ---
PHYSICAL MEDICINE/REHABILITATION/ELECTRODIAGNOSTIC CONSULTATION DATE OF CONSULTATION: 05/31/2017 HISTORY OF PRESENT ILLNESS: The patient is a 66-year-old man with past medical history of longstanding diabetes as well as seizure disorder who was admitted with back pain as well as right leg pain, numbness and tingling in both lower extremities. The patient states he recently lost his and he has been having increasing problems with his mobility. The patient presented to the emergency room on May 28, undergoing an MRI of the lumbar spine which showed T12 and L1 superior endplate compression fractures of uncertain age. There was also some degenerative facet hypertrophy at L4-5 and L5-S1 which was noted to be mild and bilateral. The patient was started on gabapentin 100 mg 3 times a day, also was on Keppra, Antivert. Blood work showed normal CBC on admission. WBCs were 5.9, hemoglobin 13.3, platelet count 160. Repeat CBC on May 29 was stable. His admitting chemistry was within normal limits. Sodium 140, potassium 4.3, chloride 105, CO2 27, BUN 14, creatinine 1.0. Hemoglobin A1C done today showed significant elevation at 9.9. His triglycerides were also elevated at 169. He has low HDL and high LDL. Also normal B12 at 521. TSH normal at 2.70. The patient complains of back pain, right leg, numbness in both feet. REVIEW OF PAST MEDICAL AND SURGICAL HISTORY: As above, extensive. Longstanding diabetic, coronary artery disease, [place] 25 years ago, hypertension, hyperlipidemia, gastric ulceration, seizure disorder, anxiety and compression fractures of thoracic spine. 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 ALLERGIES: None noted. FAMILY HISTORY: Early cardiac in multiple family members. SOCIAL HISTORY: Per the patient, he recently lost his . Lives in a house with 1 step to enter. Quit smoking 20 years ago but had previously been a smoker. Drinks alcohol socially. No recreational drug use. REVIEW OF SYSTEMS: No lightheadedness, dizziness. No blurry vision, double vision. No chest pain, shortness of breath. No fever, chills. No bowel or bladder change. Again, numbness, tingling in the distal lower extremities as well as pain in the right lower extremity and back, difficulty walking. PHYSICAL EXAM:General: Overweight man, seen both sitting, standing and ambulating. HEENT: Normocephalic and atraumatic. Extraocular muscles appear intact. Neck: Supple. Extremities: Without any pitting edema in the lower extremities or calf tenderness. No dysvascular changes in the lower extremities. He does have some atrophy of the extensor digitorum brevis in the left lower extremity only. Neuromuscular: He is awake, alert, cooperative. Cranial nerves 2-12 grossly intact. Fairly good strength in the upper extremities as well as his lower extremities and normal sensation to light touch. He has slightly diminished pinprick distally in the lower extremities but normal to cold temperature, normal vibration. Absent ankle jerk reflexes. Trace to absent knee jerk reflexes. Of note, he has multiple finger amputations in the left hand. RESULTS OF ELECTROMYOGRAM AND NERVE CONDUCTION STUDIES: Please refer to report for details. OVERALL IMPRESSION: 1. Electromyographic/nerve conduction studies were compared to prior study from 2013. 2. 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 3. Left extensor digitorum brevis has no response with denervation, but proximally the peroneal nerve looks normal, possibly due to old trauma, but uncertain etiology, and new or worsened since prior study. 4. No electrodiagnostic evidence of lumbosacral radiculopathy, other motor neuropathy or other mononeuropathy. 5. Gait disorder, multifactorial. 6. Complaints of pain in the distal right lower extremity, uncertain etiology. 7. Back pain with underlying compression fractures, T12 and L1, of uncertain chronicity but also underlying facet arthropathy. 8. Seizure disorder. 9. Coronary artery disease status post myocardial infarction. 10. History of gastric ulceration. 11. Elevated hemoglobin A1C, poorly controlled diabetes. 12. Elevated triglycerides and LDL cholesterol. PLANS AND SUGGESTIONS: 1. Diabetic foot precautions. 2. Gabapentin. 3. Physical therapy. 4. Safety/fall precautions. 5. Cardiac precautions. 6. Consider DVT prophylaxis until more mobile versus ambulating with staff on unit. 7. May require short-term rehabilitation in detention facility. Thank you for this referral. CHARIS SANTIAGO M.D. HARRY/[id number]
[2017-05-31] MEDS: INSULIN SLIDING SCALE (NOVOLOG) 1 VIAL SQ SCH ×2 (17:23→21:44)
[2017-05-31] MEDS: ATORVASTATIN CA 40 MG TABLET (FP) PO SCH (21:32)
[2017-05-31] MEDS ORDERED: INSULIN (NOVOLOG) ASPART 100 UNITS/ML 10ML VIAL ONE (21:38)
[2017-05-31] MEDS: ALPRAZolam 0.25 MG TABLET PO PRN (21:43)
--- NOTE | 2017-05-31 23:26 | EKG ---
Test Reason : Blood Pressure : / mmHG Vent. Rate : 067 BPM Atrial Rate : 067 BPM P-R Int : 158 ms QRS Dur : 078 ms QT Int : 382 ms P-R-T Axes : 053 020 047 degrees QTc Int : 403 ms NORMAL SINUS RHYTHM NORMAL ECG WHEN COMPARED WITH ECG OF 23-SEP-2016 09:21, QT HAS SHORTENED Confirmed by LORRI BLACKMAN MD ([id number]) on 05/31/2017 11:26:03 PM Referred By: Cole GONZALES Confirmed By:LORRI BLACKMAN MD
[2017-06-01] MEDS: METOCLOPRAMIDE HCL 10 MG TABLET (FP) PO SCH ×2 (06:14→14:27)
[2017-06-01] MEDS: MECLIZINE HCL 25 MG TABLET (FP) PO SCH ×2 (06:14→14:27)
[2017-06-01] MEDS: GABAPENTIN 100 MG CAPSULE (FP) PO SCH ×2 (06:14→14:27)
[2017-06-01] MEDS: INSULIN SLIDING SCALE (NOVOLOG) 1 VIAL SQ SCH ×2 (06:16→12:05)
[2017-06-01] MEDS ORDERED: PT OWN MED DRAWER 7, Y5N ONE (09:30)
[2017-06-01] MEDS: FOLIC ACID 1 MG TABLET (FP) PO SCH (09:34)
[2017-06-01] MEDS: METOPROLOL TARTRATE 50 MG TABLET (FP) PO SCH (09:34)
[2017-06-01] MEDS: levETIRAcetam 500 MG TABLET (FP) PO SCH (09:34)
[2017-06-01] MEDS: RANOLAZINE E.R. 500 MG TABLET (FP) PO SCH (09:34)
--- NOTE | 2017-06-01 09:51 | CONSULT ---
Consult - text type - Consultation Consultation Note: Neurology History of Present Illness 66 y/o M with PMH HTN, HLD, [place] (25 yrs ago), DM (states compliant; BG monitored by niece), gastric ulcers, seizure disorders, anxiety, previous MRI- revealing thoracic compression fx, who presents to the ED with lower extremity weakness x 1 month. As per notes, over the last month, he has been unable to ambulate well. He states that he has lumbar pain a/w numbness and tingling in his lower extremities, as well as urinary incontinence and constipation. Pt also endorses SOB when lying flat, stating that he needs to sit up to catch his breath. MRI L spine completed and reviewed, showed chronic T12 and L1 compression fracture, likely etiology for his low back pain. No herniation noted. Patient also with echo completed with normla LV function and size. Per notes, NSGY to be consulted. This AM, appears more comfortable with medication and states pain is better. Discussed imaging results with him and does have assistive device at bedside. Past History - Past Medical History Allergies/Adverse Reactions: Allergies Allergy/AdvReac Type Severity Reaction Status Date / Time No Known Allergies Allergy Verified 05/28/17 14:07 Home Medications: Ambulatory Orders Meclizine HCl [Antivert -] 25 mg PO TID 09/03/16 Metoclopramide HCl [Reglan -] 10 mg PO TID 09/03/16 Folic Acid 1 mg PO DAILY 09/22/16 Quetiapine Fumarate "Xr" [Seroquel XR] 150 mg PO DAILY 09/22/16 Aspirin Coated [Ecotrin -] 325 mg PO DAILY #30 tab MDD 1 09/24/16 Atorvastatin Ca [Lipitor] 40 mg PO HS #30 tablet MDD 1 09/24/16 Metoprolol Tartrate [Lopressor -] 50 mg PO BID #60 tablet MDD 2 09/24/16 Ranolazine [Ranexa -] 500 mg PO BID #60 tab MDD 2 09/24/16 Alprazolam [Xanax] 0.25 mg PO BID PRN #10 tablet MDD 2 05/29/17 levETIRAcetam [Keppra -] 500 mg PO BID #60 tablet MDD 2 05/29/17 Anemia: No Asthma: No Cancer: No Cardiac Disorders: Yes ([place] 25 years ago) CVA: No COPD: No CHF: No Dementia: No Diabetes: Yes GI Disorders: Yes (ulcers) Disorders: No HTN: Yes Hypercholesterolemia: Yes Liver Disease: No Psychiatric Problems: Yes Seizures: Yes (2010) Thyroid Disease: No - Surgical History Abdominal Surgery: No Appendectomy: No Cardiac Surgery: No Cholecystectomy: No Lung Surgery: No Neurologic Surgery: No Orthopedic Surgery: Yes (L. Hand 2, 3, 4, 5 fingers amputated) - Family Disease History Family Disease History: Heart Disease: Father, Brother - Immunization History Immunization Up to Date: Yes - Suicide/Smoking/Psychosocial Hx Smoking Status: No Smoking History: Former smoker Have you smoked in the past 12 months: No Number of Cigarettes Smoked Daily: 1 If you are a former smoker, when did you quit?: 2012 Information on smoking cessation initiated: No 'Breaking Loose' booklet given: 09/23/16 Hx Alcohol Use: Yes (OCCASIONALLY,last drink 5daysago, 3 cans of beer) Drug/Substance Use Hx: No Substance Use Type: None, Alcohol Hx Substance Use Treatment: No Review of Systems - Review of Systems Able to Perform ROS?: Yes Is the patient limited [place] proficient: Yes Constitutional: Yes: Weakness Respiratory: Yes: Orthopnea, Shortness of Breath Cardiac (ROS): Yes: Edema (lower extremity edema 1+ ) ABD/GI: Yes: Abdominal Distended : Yes: Incontinence Musculoskeletal: Yes: Muscle Weakness Neurological: Yes: Numbness, Tingling (in lower extremities) Endocrine: Yes: Unexplained Weight Loss All Other Systems: Reviewed and Negative *Physical Exam Vital Signs Temperature 97.7 F 06/01/17 09:24 Pulse Rate 68 06/01/17 09:24 Respiratory Rate 18 06/01/17 09:24 Blood Pressure 118/73 06/01/17 09:24 O2 Sat by Pulse Oximetry (%) 99 06/01/17 04:00 - Physical Exam General Appearance: Yes: Appropriately Dressed, Obese HEENT: positive: EOMI, JENNI, Normal ENT Inspection Neck: positive: Lymphadenopathy (L) Respiratory/Chest: positive: Lungs Clear, Normal Breath Sounds Cardiovascular: positive: Regular Rhythm, Regular Rate Vascular Pulses: Dorsalis-Pedis (R): 2+, Doralis-Pedis (L): 2+ Gastrointestinal/Abdominal: positive: Distended Neurologic: positive: coding compliance specialist II-XII NML intact, (1+ edema b/l, 4+/5 motor strength lower extremities. 5-/5 upper extremities ), sensory intact to PP, gait deferred CBCD WBC 5.0 K/mm3 (4.0-10.0) 05/29/17 05:46 RBC 4.52 M/mm3 (4.00-5.60) 05/29/17 05:46 Hgb 12.6 GM/dL (11.7-16.9) 05/29/17 05:46 Hct 37.9 % (35.4-49) 05/29/17 05:46 MCV 83.9 fl (80-96) 05/29/17 05:46 MCHC 33.3 g/dl (32.0-35.9) 05/29/17 05:46 RDW 13.7 % (11.9-15.9) 05/29/17 05:46 Plt Count 141 K/MM3 (134-434) 05/29/17 05:46 MPV 9.5 fl (7.5-11.1) 05/29/17 05:46 CMP Sodium 141 mmol/L (136-145) 05/29/17 05:46 Potassium 3.7 mmol/L (3.5-5.1) 05/29/17 05:46 Chloride 104 mmol/L (98-107) 05/29/17 05:46 Carbon Dioxide 29 mmol/L (21-32) 05/29/17 05:46 Anion Gap 8 (8-16) 05/29/17 05:46 BUN 17 mg/dL (7-18) D 05/29/17 05:46 Creatinine 1.0 mg/dL (0.7-1.3) 05/29/17 05:46 Calcium 9.4 mg/dL (8.5-10.1) 05/29/17 05:46 MRI L spine reviewed Echo reviewed Medical Decision Making 66 y/o M with PMH HTN, HLD, [place] (25 yrs ago), DM (states compliant; BG monitored by niece), gastric ulcers, seizure disorders, anxiety, previous MRI- revealing thoracic compression fx, who presents to the ED with lower extremity weakness x 1 month. As per notes, over the last month, he has been unable to ambulate well. He states that he has lumbar pain a/w numbness and tingling in his lower extremities, as well as urinary incontinence and constipation. Pt also endorses SOB when lying flat, stating that he needs to sit up to catch his breath. MRI L spine completed and reviewed, showed chronic T12 and L1 compression fracture, likely etiology for his low back pain. No herniation noted. Per notes, NSGY to be consulted. Pain control, symptoms are improving per patient Physical therapy, assistive device at bedside Fall precautions Can consider epidural injections if needed Patient also with echo completed with normal LV function and size Of note, on Keppra 500mg twice daily for seizures, can be continued, would not require adjustment at this time
--- NOTE | 2017-06-01 11:05 | DS ---
Physical Examination Vital Signs: Vital Signs Temperature 97.7 F 06/01/17 09:24 Pulse Rate 68 06/01/17 09:24 Respiratory Rate 18 06/01/17 09:24 Blood Pressure 118/73 06/01/17 09:24 O2 Sat by Pulse Oximetry (%) 99 06/01/17 04:00 Constitutional: Yes: Calm Neck: Yes: Trachea Midline Cardiovascular: Yes: Regular Rate and Rhythm, S1, S2 Respiratory: Yes: CTA Bilaterally Gastrointestinal: Yes: Normal Bowel Sounds, Soft Edema: No Neurological: Yes: Alert, Oriented Labs: CBC, BMP 05/29/17 05:46 05/29/17 05:46 Discharge Summary Reason For Visit: BACK PAIN Current Active Problems Constipation (Acute) Numbness and tingling of both lower extremities (Acute) Hospital Course: [facility] COMPLAINT: Back Pain, Constipation PCP: Dr. Araujo HISTORY OF PRESENT ILLNESS: This is a 66 y/o man who presents to the ED with back pain, constipation x 10 days and leg pain x 1 week. Patient denies recent fall or trauma. Patient denies numbness, bowel or bladder incontinence. Patient denies fever, chills, cough, SOB, CP, palpitations, N/V/D, dysuria. ER course was notable for: (1) MRI LSP- mild T12, L1 vertebral compression fractures (2) Abd Xray- non obstructive bowel gas pattern (3) patient had ECHO normal seen by neurology and PMR MRI chronic t12 l1 compression fracture no disc herniation to go home with VNS Condition: Guarded - Instructions Referrals: Brenda Araujo MD [Primary Care Provider] - 1 Week Disposition: VNS/HOME HEALTH CARE - Home Medications Comprehensive Discharge Medication List: Ambulatory Orders Meclizine HCl [Antivert -] 25 mg PO TID 09/03/16 Metoclopramide HCl [Reglan -] 10 mg PO TID 09/03/16 Folic Acid 1 mg PO DAILY 09/22/16 Quetiapine Fumarate "Xr" [Seroquel XR] 150 mg PO DAILY 09/22/16 Aspirin Coated [Ecotrin -] 325 mg PO DAILY #30 tab MDD 1 09/24/16 Atorvastatin Ca [Lipitor] 40 mg PO HS #30 tablet MDD 1 09/24/16 Metoprolol Tartrate [Lopressor -] 50 mg PO BID #60 tablet MDD 2 09/24/16 Ranolazine [Ranexa -] 500 mg PO BID #60 tab MDD 2 09/24/16 Alprazolam [Xanax] 0.25 mg PO BID PRN #10 tablet MDD 2 05/29/17 levETIRAcetam [Keppra -] 500 mg PO BID #60 tablet MDD 2 05/29/17
[2017-06-01] MEDS ORDERED: INSULIN (NOVOLOG) ASPART 100 UNITS/ML 10ML VIAL ONE (11:56)
[2017-06-01 14:38] VITALS: BP 110/72; PULSE 59; TEMP 97.9
--- NOTE | 2017-06-02 17:11 | EKG ---
Test Reason : Blood Pressure : / mmHG Vent. Rate : 066 BPM Atrial Rate : 066 BPM P-R Int : 162 ms QRS Dur : 074 ms QT Int : 384 ms P-R-T Axes : 048 007 060 degrees QTc Int : 402 ms NORMAL SINUS RHYTHM POSSIBLE LEFT ATRIAL ENLARGEMENT NONSPECIFIC T WAVE ABNORMALITY ABNORMAL ECG WHEN COMPARED WITH ECG OF 30-MAY-2017 12:46, NO SIGNIFICANT CHANGE WAS FOUND Confirmed by DANICA BAIRES, FERNANDO ([id number]) on 06/02/2017 5:11:21 PM Referred By: Cole GONZALES Confirmed By:FERNANDO MISHRA MD
== END 2017-06-01 14:58 | disposition home health service (06) ==
LOC: JER 13:57 → JERBED 18:23 → J5S 05-30 00:33
PROVIDERS: ADMIT Internal Medicine; ATTEND Family Medicine
PROC: 3E013VG Introduction of Insulin into Subcutaneous Tissue, Percutaneous Approach (ICD-10-PCS; principal; 2017-05-28)
DX: R20.0 Anesthesia of skin (principal); R20.2 Paresthesia of skin; K59.00 Constipation, unspecified; I10 Essential (primary) hypertension; E78.5 Hyperlipidemia, unspecified; E11.9 Type 2 diabetes mellitus without complications; M54.9 Dorsalgia, unspecified; I25.2 Old myocardial infarction; G40.909 Epilepsy, unspecified, not intractable, without status epilepticus; F41.9 Anxiety disorder, unspecified; M62.81 Muscle weakness (generalized); R26.81 Unsteadiness on feet; Z86.73 Personal history of transient ischemic attack (TIA), and cerebral infarction without residual deficits; Z79.82 Long term (current) use of aspirin; Z87.891 Personal history of nicotine dependence; Z95.5 Presence of coronary angioplasty implant and graft; M48.56XS Collapsed vertebra, not elsewhere classified, lumbar region, sequela of fracture
CPT/HCPCS: 36415; 72148-TC; 74019-TC-FY; 80048; 80061; 81003; 81015; 82607; 82962; 83036; 83721; 84443; 85025; 85610; 85730; 93005; 93010; 93306-TC; 95860-TC; 96372; 97116-GP; 97161-GP; 99285-25; G0378

== ENCOUNTER 2018-04-26 09:18 | Emergency (ER) | payer MEDICARE, OTHER ==
[2018-04-26 09:26] VITALS: BP 178/78; PULSE 69; TEMP 97.5; BMI 28.3
--- NOTE | 2018-04-26 10:55 | PDOC ---
History of Present Illness - General Chief Complaint: Wound Stated Complaint: BURNING SENSATION Time Seen by Provider: 04/26/18 10:34 History Source: Patient Exam Limitations: Clinical Condition - History of Present Illness Initial Comments: 04/26/18 11:23 Patient with history of diabetes present with complaint of 4 day history of open skin wound to heal of left foot for 4 days which has been painful. Patient reported diabetes well controlled on insulin. Patient denies any other symptoms. Denies fever or pain to anywhere else. Timing/Duration: other (4 days) Past History - Past Medical History Allergies/Adverse Reactions: Allergies Allergy/AdvReac Type Severity Reaction Status Date / Time No Known Allergies Allergy Verified 04/26/18 09:20 Home Medications: Ambulatory Orders Meclizine HCl [Antivert -] 25 mg PO TID 09/03/16 Metoclopramide HCl [Reglan -] 10 mg PO TID 09/03/16 Folic Acid 1 mg PO DAILY 09/22/16 Quetiapine Fumarate "Xr" [Seroquel XR] 150 mg PO DAILY 09/22/16 Aspirin Coated [Ecotrin -] 325 mg PO DAILY #30 tab MDD 1 09/24/16 Atorvastatin Ca [Lipitor] 40 mg PO HS #30 tablet MDD 1 09/24/16 Metoprolol Tartrate [Lopressor -] 50 mg PO BID #60 tablet MDD 2 09/24/16 Ranolazine [Ranexa -] 500 mg PO BID #60 tab MDD 2 09/24/16 Alprazolam [Xanax] 0.25 mg PO BID PRN #10 tablet MDD 2 05/29/17 levETIRAcetam [Keppra -] 500 mg PO BID #60 tablet MDD 2 05/29/17 Mupirocin Ointment [Bactroban 2% Ointment -] 1 applic TP BID #1 tube 04/26/18 Naproxen 500 mg PO BID PRN #20 tablet 04/26/18 Sulfamethoxazole/Trimethoprim [Bactrim Ds -] 1 tab PO BID #14 tablet 04/26/18 Anemia: No Asthma: No Cancer: No Cardiac Disorders: Yes ([place] 25 years ago) CVA: No COPD: No CHF: No Dementia: No Diabetes: Yes GI Disorders: Yes (ulcers) Disorders: No HTN: Yes Hypercholesterolemia: Yes Liver Disease: No Psychiatric Problems: Yes Seizures: Yes (2010) Thyroid Disease: No - Surgical History Abdominal Surgery: No Appendectomy: No Cardiac Surgery: No Cholecystectomy: No Lung Surgery: No Neurologic Surgery: No Orthopedic Surgery: Yes (L. Hand 2, 3, 4, 5 fingers amputated) - Family Disease History Family Disease History: Heart Disease: Father, Brother - Immunization History Immunization Up to Date: Yes - Suicide/Smoking/Psychosocial Hx Smoking Status: No Smoking History: Former smoker Have you smoked in the past 12 months: No Number of Cigarettes Smoked Daily: 1 If you are a former smoker, when did you quit?: 8 Information on smoking cessation initiated: No 'Breaking Loose' booklet given: 09/23/16 Hx Alcohol Use: No Drug/Substance Use Hx: No Substance Use Type: None, Alcohol Hx Substance Use Treatment: No Review of Systems - Review of Systems Able to Perform ROS?: Yes Is the patient limited French proficient: No Constitutional: No: Fever HEENTM: No: Symptoms Reported Respiratory: No: Symptoms reported Cardiac (ROS): No: Symptoms Reported ABD/GI: No: Nausea, Vomiting Integumentary: Yes: Change in Color (heel of left foot), Other (wound to heel of left foot) Neurological: No: Numbness, Paresthesia, Tingling All Other Systems: Reviewed and Negative *Physical Exam - Vital Signs Last Vital Signs Temp Pulse Resp BP Pulse Ox 97.5 F L 69 20 178/78 H 99 04/26/18 09:21 04/26/18 09:21 04/26/18 09:21 04/26/18 09:21 04/26/18 09:21 - Physical Exam Comments: 04/26/18 11:25 GENERAL: Well developed, well nourished. Awake and alert. No acute distress. CARDIOVASCULAR: Regular rate and rhythm. No murmurs, rubs, or gallops. PULMONARY: No evidence of respiratory distress. Lungs clear to auscultation bilaterally. No wheezing, rales or rhonchi. ABDOMINAL: Soft. Non-tender. Non-distended. No rebound or guarding. No organomegaly. Normoactive bowel sounds SKIN: Superficial wound with skin excoriation to heel of left foot. No erythema or drainage from wound. Warm and dry. Normal capillary refill. NEUROLOGICAL: Alert, awake, appropriate. No motor deficits in the lower extremities. normal sensory sensation to b/l feet Gait is normal without ataxia. PSYCHIATRIC: Cooperative. Good eye contact. Appropriate mood and affect. General Appearance: Yes: Nourished, Appropriately Dressed, Mild Distress Moderate Sedation - Procedure Monitoring Vital Signs: Procedure Monitoring Vital Signs Temperature 97.5 F L 04/26/18 09:21 Pulse Rate 69 04/26/18 09:21 Respiratory Rate 20 04/26/18 09:21 Blood Pressure 178/78 H 04/26/18 09:21 O2 Sat by Pulse Oximetry (%) 99 04/26/18 09:21 Medical Decision Making - Medical Decision Making 04/26/18 11:27 Patient with insulin-dependent diabetes present with complaint of superficial wound to left heel for 4 days. Exam significant for localized superficial skin excoriations likely from skin abrasions to he will of left foot. No open wound or drainage from site. Area cleaned with Betadine and petroleum jelly gauze applied to wound area. Left heel and foot wrapped with stretch gauze. Patient is stable for discharge on topical mupirocin and Bactrim antibiotics with podiatry follow-up. *DC/Admit/Observation/Transfer Diagnosis at time of Disposition: Non healing left heel wound Diabetic ulcer of heel Qualifiers: Diabetes mellitus type: type 2 Laterality: left Non-pressure ulcer stage: limited to breakdown of skin Qualified Code(s): E11.621 - Type 2 diabetes mellitus with foot ulcer - Discharge Dispostion Disposition: HOME Condition at time of disposition: Stable Decision to Admit order: No - Prescriptions Prescriptions: Mupirocin Ointment [Bactroban 2% Ointment -] 1 applic TP BID #1 tube Naproxen 500 mg PO BID PRN #20 tablet PRN Reason: pain Sulfamethoxazole/Trimethoprim [Bactrim Ds -] 1 tab PO BID #14 tablet - Referrals Referrals: [facility] Rob MD [Primary Care Provider] - Rob Dang MD [Non Staff, Medical] - - Patient Instructions Printed Discharge Instructions: DI for Wound Infection Additional Instructions: Take medications as prescribed. Follow-up referred to podiatry as soon as possible for wound check - Post Discharge Activity
== END 2018-04-26 11:01 | disposition home or self-care (01) ==
LOC: JERFT 09:18
DX: E11.621 Type 2 diabetes mellitus with foot ulcer (principal); L97.421 Non-pressure chronic ulcer of left heel and midfoot limited to breakdown of skin; Z79.4 Long term (current) use of insulin; I25.10 Atherosclerotic heart disease of native coronary artery without angina pectoris; I10 Essential (primary) hypertension; I25.2 Old myocardial infarction; E78.00 Pure hypercholesterolemia, unspecified; Z86.69 Personal history of other diseases of the nervous system and sense organs; Z89.022 Acquired absence of left finger(s)
CPT/HCPCS: 99281-25

== ENCOUNTER 2018-07-18 16:05 | Emergency (ER) | payer MEDICARE, OTHER ==
[2018-07-18 16:53] VITALS: BP 132/75; PULSE 84; TEMP 98.2; BMI 30.2
--- NOTE | 2018-07-18 17:15 | PDOC ---
History of Present Illness - General Chief Complaint: Blood Sugar Problem Stated Complaint: HIGH BLOOD SUGAR Time Seen by Provider: 07/18/18 17:15 History Source: Patient Exam Limitations: No Limitations - History of Present Illness Initial Comments: 07/18/18 17:51 67 year old male with PMH DM, HTN, HLD, CAD, stent?, asthma, chronic bilateral lower extremity pain sent to ED from PCP for "high blood sugar". Pt stated that he went to his PCP today (he does not remember the name) for pain all over, generalized weakness. Pt denied recent illness, fever, chills, nausea, vomiting , diarrhea, rhinorrhea, cough, skin ulcers. Allergies: NKDA Nicotine use: denied Past History - Past Medical History Allergies/Adverse Reactions: Allergies Allergy/AdvReac Type Severity Reaction Status Date / Time No Known Allergies Allergy Verified 07/18/18 16:45 Home Medications: Ambulatory Orders Meclizine HCl [Antivert -] 25 mg PO TID 09/03/16 Metoclopramide HCl [Reglan -] 10 mg PO TID 09/03/16 Folic Acid 1 mg PO DAILY 09/22/16 Quetiapine Fumarate "Xr" [Seroquel XR] 150 mg PO DAILY 09/22/16 Aspirin Coated [Ecotrin -] 325 mg PO DAILY #30 tab MDD 1 09/24/16 Atorvastatin Ca [Lipitor] 40 mg PO HS #30 tablet MDD 1 09/24/16 Metoprolol Tartrate [Lopressor -] 50 mg PO BID #60 tablet MDD 2 09/24/16 Ranolazine [Ranexa -] 500 mg PO BID #60 tab MDD 2 09/24/16 Alprazolam [Xanax] 0.25 mg PO BID PRN #10 tablet MDD 2 05/29/17 levETIRAcetam [Keppra -] 500 mg PO BID #60 tablet MDD 2 05/29/17 Mupirocin Ointment [Bactroban 2% Ointment -] 1 applic TP BID #1 tube 04/26/18 Naproxen 500 mg PO BID PRN #20 tablet 04/26/18 Sulfamethoxazole/Trimethoprim [Bactrim Ds -] 1 tab PO BID #14 tablet 04/26/18 Anemia: No Asthma: No Cancer: No Cardiac Disorders: Yes ([place] 25 years ago) CVA: No COPD: No CHF: No Dementia: No Diabetes: Yes GI Disorders: Yes (ulcers) Disorders: No HTN: Yes Hypercholesterolemia: Yes Liver Disease: No Psychiatric Problems: Yes Seizures: Yes (2010) Thyroid Disease: No - Surgical History Abdominal Surgery: No Appendectomy: No Cardiac Surgery: No Cholecystectomy: No Lung Surgery: No Neurologic Surgery: No Orthopedic Surgery: Yes (L. Hand 2, 3, 4, 5 fingers amputated) - Family Disease History Family Disease History: Heart Disease: Father, Brother - Immunization History Immunization Up to Date: Yes - Suicide/Smoking/Psychosocial Hx Smoking Status: No Smoking History: Never smoked Have you smoked in the past 12 months: No Number of Cigarettes Smoked Daily: 1 If you are a former smoker, when did you quit?: 8 'Breaking Loose' booklet given: 09/23/16 Hx Alcohol Use: No Drug/Substance Use Hx: No Substance Use Type: None, Alcohol Hx Substance Use Treatment: No Review of Systems - Review of Systems Able to Perform ROS?: Yes Comments:: 07/18/18 17:54 General: admitted to generalized weakness, body aches. denied fever, chills. HEENT: denied sore throat, rhinorrhea, ear pain. Heart: denied chest pain, palpitations, syncope, diaphoresis. Respiratory: denied shortness of breath, cough, sputum production, hemoptysis. Abdomen: denied abdominal pain, nausea, vomiting, diarrhea, constipation, blood in stool. : denied dysuria, increased urinary frequency, hematuria, urinary incontinence , flank pain. Back: denied back pain. Musculoskeletal: denied joint pain, muscle pain, joint swelling. Neurological: denied headache, dizziness, numbness, tingling, weakness. Skin: denied rash, laceration, abrasion. *Physical Exam - Vital Signs Last Vital Signs Temp Pulse Resp BP Pulse Ox 98.2 F 84 18 132/75 96 07/18/18 16:51 07/18/18 16:51 07/18/18 16:51 07/18/18 16:51 07/18/18 16:51 - Physical Exam Comments: 07/18/18 17:54 Constitutional: Well-nourished, Well-developed, appearing stated age. poor historian. HEENT: head is normocephalic, atraumatic. EOMI. PERRLA. Neck: supple. Full ROM. Heart: regular rhythm. no murmurs, rubs or gallops. Lungs: decreased breath sounds bilaterally. clear to auscultation bilaterally. no crackles, rhonchi or wheezing. no stridor. Abdomen: soft, nontender. normal bowel sounds. no rebound, guarding, masses. Extremities: peripheral pulses intact. no lower extremity edema. Neurological: CN 2-12 grossly intact. moves all four extremities. Psych: awake, alert, oriented x3. follows commands. answers questions appropriately. Skin: no ulcers to bilateral feet. ED Treatment Course - LABORATORY CBC & Chemistry Diagram: 07/18/18 17:40 07/18/18 17:40 Medical Decision Making - Medical Decision Making 07/18/18 17:55 67 year old male with above PMH sent to ED by PCP for "high blood sugar", pt went to PCP for body aches. Initial Vital Signs Temp Pulse Resp BP Pulse Ox 98.2 F 84 18 132/75 96 07/18/18 16:51 07/18/18 16:51 07/18/18 16:51 07/18/18 16:51 07/18/18 16:51 Afebrile. No tachycardia. No tachypnea. Mild systolic hypertension. No hypoxia on room air. Labs ordered: CBC, CMP, acetone, mag, phos, vbg, influenza A/B, UA/UC Imaging ordered: CXR Medications ordered: normal saline bolus 100 cc, Tylenol 07/18/18 18:59 CBC WBC 3.7 K/mm3 (4.0-10.0) L 07/18/18 17:40 RBC 4.19 M/mm3 (4.00-5.60) 07/18/18 17:40 Hgb 11.8 GM/dL (11.7-16.9) 07/18/18 17:40 Hct 35.2 % (35.4-49) L 07/18/18 17:40 MCV 84.0 fl (80-96) 07/18/18 17:40 MCH 28.2 pg (25.7-33.7) 07/18/18 17:40 MCHC 33.6 g/dl (32.0-35.9) 07/18/18 17:40 RDW 13.8 % (11.9-15.9) 07/18/18 17:40 Plt Count 104 K/MM3 (134-434) L D 07/18/18 17:40 MPV 10.0 fl (7.5-11.1) 07/18/18 17:40 Absolute Neuts (auto) 1.7 K/mm3 (1.5-8.0) 07/18/18 17:40 Neutrophils % 47.5 % (42.8-82.8) 07/18/18 17:40 Lymphocytes % 41.0 % (8-40) H 07/18/18 17:40 Monocytes % 6.2 % (3.8-10.2) 07/18/18 17:40 Eosinophils % 4.5 % (0-4.5) 07/18/18 17:40 Basophils % 0.8 % (0-2.0) 07/18/18 17:40 Nucleated RBC % 0 % (0-0) 07/18/18 17:40 Leukopenia. No anemia. VBG - normal pH. no acidosis. CMP Sodium 134 mmol/L (136-145) L 07/18/18 17:40 Potassium 4.2 mmol/L (3.5-5.1) 07/18/18 17:40 Chloride 103 mmol/L (98-107) 07/18/18 17:40 Carbon Dioxide 21 mmol/L (21-32) 07/18/18 17:40 Anion Gap 10 MMOL/L (8-16) 07/18/18 17:40 BUN 22 mg/dL (7-18) H 07/18/18 17:40 Creatinine 1.1 mg/dL (0.55-1.3) 07/18/18 17:40 Creat Clearance w eGFR 66.57 (>60) 07/18/18 17:40 Random Glucose 378 mg/dL (74-106) H* 07/18/18 17:40 Calcium 8.0 mg/dL (8.5-10.1) L 07/18/18 17:40 Phosphorus 2.7 mg/dL (2.5-4.9) 07/18/18 17:40 Magnesium 1.9 mg/dL (1.8-2.4) 07/18/18 17:40 Total Bilirubin 0.3 mg/dL (0.2-1) 07/18/18 17:40 AST 13 U/L (15-37) L 07/18/18 17:40 ALT 31 U/L (13-61) 07/18/18 17:40 Alkaline Phosphatase 60 U/L (45-117) 07/18/18 17:40 Total Protein 6.8 g/dl (6.4-8.2) 07/18/18 17:40 Albumin 3.5 g/dl (3.4-5.0) 07/18/18 17:40 Hyperglycemia. No anion gap. Mild hyponatremia, not clinically significant. Normal potassium. Acetone negative. Influenza A/B negative. Urine Test Results Urine Color Yellow 07/18/18 18:10 Urine Appearance Clear 07/18/18 18:10 Urine pH 5.0 (5.0-8.0) 07/18/18 18:10 Ur Specific [place] 1.033 (1.010-1.035) 07/18/18 18:10 Urine Protein Trace (NEGATIVE) 07/18/18 18:10 Urine Glucose (UA) 3+ (NEGATIVE) H 07/18/18 18:10 Urine Ketones Negative (NEGATIVE) 07/18/18 18:10 Urine Blood Negative (NEGATIVE) 07/18/18 18:10 Urine Nitrite Negative (NEGATIVE) 07/18/18 18:10 Urine Bilirubin Negative (NEGATIVE) 07/18/18 18:10 Ur Leukocyte Esterase Negative (NEGATIVE) 07/18/18 18:10 UA negative for UTI. Glucosuria. 07/18/18 19:34 Pt reported improvement of pain and body aches. Pending CXR. 07/18/18 20:02 CXR shows no infiltration. atelectatic changes at the right base. Pt has hyperglycemia with no anion gap, ketonuria with no ketonemia, that is responsive to IV fluids, with no infectious source of hyperglycemia identified. Pt reported improvement of symptoms with fluid hydration and Tylenol. Pt discharged and informed to follow up with his PCP for better glucose control. *DC/Admit/Observation/Transfer Diagnosis at time of Disposition: Hyperglycemia, Body aches - Discharge Dispostion Disposition: HOME Condition at time of disposition: Improved Decision to Admit order: No - Referrals - Patient Instructions Printed Discharge Instructions: Reducing Your Risk of Heart Disease When You Have Diabetes, Type 2 Diabetes, DI for Hyperglycemia -- Adult Additional Instructions: You were seen today for high blood glucose. You were given intravenous fluids for rehydration and Tylenol for pain. Your white blood cell count was low. These cells are a part of your immune system. Have this lab repeated with your primary care doctor. Take Tylenol over the counter for your pain, take as advised on label. Drink lots of water throughout the day to stay hydrated. Follow up with your primary care doctor in 1-2 days. Return to the Emergency Department for chest pain, shortness of breath, weakness, numbness, tingling, increasing headache, vomiting, fever or any other new, worsening or concerning symptoms. SAMOAN TRANSLATION PROVIDED VIA [employer] Hoy te vieron por un alto nivel de glucosa en la melvin. Se le administraron lquidos por va intravenosa para rehidratacin y Tylenol para el dolor. Mason recuento de glbulos blancos fue bajo. Estas clulas son parte de mason sistema inmunolgico. Repita katty laboratorio con mason mdico de atencin primaria. [place] Tylenol sobre el mostrador para el dolor, tmelo mayo se indica en la etiqueta. Nikky alissa agua pancho todo el da para mantenerte hidratado. Ray un seguimiento con mason mdico de atencin primaria en 1-2 cho. Regrese al Departamento de Emergencias para el dolor en el pecho, dificultad para respirar , debilidad, entumecimiento, hormigueo, aumento del dolor de summer, vmitos, fiebre o cualquier otro sntoma nuevo, que empeore o relacionado. Print Language: SAMOAN - Post Discharge Activity
[2018-07-18] MEDS ORDERED: SODIUM CHLORIDE 1,000 ML IV STA ×2 (17:20→17:56)
[2018-07-18 17:52] LABS: BASO % 0.8 % (0-2.0); EOS % 4.5 % (0-4.5); HEMATOCRIT 35.2 % (35.4-49); HEMOGLOBIN 11.8 GM/dL (11.7-16.9); MCH 28.2 pg (25.7-33.7); MCHC 33.6 g/dl (32.0-35.9); MONO % 6.2 % (3.8-10.2); NEUT % 47.5 % (42.8-82.8); PLATELET COUNT 104 K/MM3 (134-434); RBC 4.19 M/mm3 (4.00-5.60); RDW 13.8 % (11.9-15.9); WHITE BLOOD COUNT 3.7 K/mm3 (4.0-10.0)
[2018-07-18 17:56] LABS: VENOUS PC02 41.2 mmHg (41-51); VENOUS PH 7.36 (7.31-7.41)
[2018-07-18] MEDS ORDERED: ACETAMINOPHEN 1000 MG/100 ML VIAL (NON FORMULARY) IVPB ONE (17:56)
[2018-07-18 17:57] LABS: VENOUS PO2 57.5 mmHg (30-40)
[2018-07-18] MEDS ORDERED: ACETAMINOPHEN INJECTION 100 ML IVPB ONE (18:08)
--- NOTE | 2018-07-18 18:22 | PDOC ---
Attending Attestation - Physicial Exam PE: 07/18/18 20:04 GENERAL: Well-appearing, well-nourished. No apparent distress. HEENT: Normocephalic, atraumatic. PERRL, EOM intact. CARDIOVASCULAR: Normal S1, S2. Regular rate and rhythm. PULMONARY: Clear to auscultation bilaterally. ABDOMEN: Soft, non-distended, non-tender. EXTREMITIES: +Chronic body pain, ambulates with a cane. Normal ROM in all four extremities. No gross deformities. SKIN: Warm, dry. No rash NEUROLOGICAL: No focal neurological deficits. <Norberto Long - Last Filed: 07/18/18 20:04> - Resident Resident Name: Eliza Sharif - ED Attending Attestation I have performed the following: I have examined & evaluated the patient, The case was reviewed & discussed with the resident, I agree w/resident's findings & plan, Exceptions are as noted - HPI HPI: 07/18/18 18:59 67-year-old male was seen at his clinic and found to have hyperglycemia is sent to the emergency department to make sure he was not in diabetic ketoacidosis. This patient is well-known to me and he recently moved back to [place] after his stay in [place]. Past medical history significant for difficulty walking. He needs a cane at baseline, He has history of chronic pain - Medical Decision Making 07/19/18 02:01 67 yo male who is diabetic presents with hyperglycemia but is NOT in dka, negative acetone neg troponin pt received IVf and his glucose decreased pt had no vomiting,no fever cxr napd pt discharged home 07/19/18 02:03 <Rosa Rogers - Last Filed: 07/19/18 02:04> Attestations - Attestations 07/18/18 20:04 Documentation prepared by Norberto Long, acting as medical reimbursement specialist for Rosa Rogers MD. <Norberto Long - Last Filed: 07/18/18 20:04>
[2018-07-18 18:44] LABS: ALBUMIN 3.5 g/dl (3.4-5.0); ALK PHOS 60 U/L (45-117); ANION GAP 10 MMOL/L (8-16); BILIRUBIN,TOTAL 0.3 mg/dL (0.2-1); BLOOD UREA NITROGEN 22 mg/dL (7-18); CHLORIDE 103 mmol/L (98-107); CO2 21 mmol/L (21-32); CREATININE 1.1 mg/dL (0.55-1.3); MAGNESIUM 1.9 mg/dL (1.8-2.4); PHOSPHOROUS 2.7 mg/dL (2.5-4.9); POTASSIUM 4.2 mmol/L (3.5-5.1); SGOT/AST 13 U/L (15-37); SGPT/ALT 31 U/L (13-61); SODIUM 134 mmol/L (136-145); TOT PROT 6.8 g/dl (6.4-8.2)
[2018-07-18 18:53] LABS: URINE APPEARANCE CLEAR; URINE BILIRUBIN NEGATIVE (NEGATIVE); URINE COLOR YELLOW; URINE GLUCOSE (UA) 3+ (NEGATIVE); URINE KETONE NEGATIVE (NEGATIVE); URINE LEUK ESTERASE NEGATIVE (NEGATIVE); URINE NITRITE NEGATIVE (NEGATIVE); URINE PROTEIN TRACE (NEGATIVE); URINE UROBILINOGEN 0.2 mg/dL (0.2-1.0)
[2018-07-18 19:00] LABS: GLUCOSE,RANDOM 378 mg/dL (74-106)
[2018-07-18 19:13] LABS: ACETONE SERUM NEGATIVE (NEGATIVE)
== END 2018-07-18 20:28 | disposition home or self-care (01) ==
LOC: JER 16:05
DX: E11.65 Type 2 diabetes mellitus with hyperglycemia (principal); I10 Essential (primary) hypertension; E78.5 Hyperlipidemia, unspecified; J45.909 Unspecified asthma, uncomplicated; M79.605 Pain in left leg; M79.604 Pain in right leg; G89.29 Other chronic pain
CPT/HCPCS: 36415; 71046-TC-FY; 80053; 81003; 82009; 82803; 83735; 84100; 85025; 87086; 87804; 99281-25; 99283-25

== ENCOUNTER 2018-09-11 17:10 | Emergency (ER) | payer MEDICARE, OTHER ==
[2018-09-11 17:17] VITALS: BMI 28.3
[2018-09-11] MEDS ORDERED: GABAPENTIN 300 MG CAPSULE (FP) PO ONE (18:01)
[2018-09-11] MEDS ORDERED: KETOROLAC TROMETHAMINE 30 MG/1 ML VIAL IM ONE (18:01)
[2018-09-11] MEDS ORDERED: KETOROLAC TROMETHAMINE 30 MG/1 ML VIAL ONE (18:05)
[2018-09-11] MEDS ORDERED: GABAPENTIN 100 MG CAPSULE (FP) ONE (18:05)
--- NOTE | 2018-09-11 18:19 | PDOC ---
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 Patient reported being seen by a doctor which he does not recall the name for foot pain and was ordered MRI but had to miss MRI appointment due to unable to have anybody take him to the appointment. MRI reschedule twice and patient missed appointment. Patient reported not taking anything for pain and was not given anything by providing doctor for pain. Patient denies numbness sensation to foot. Denies any other symptoms or any other pain anywhere else. Timing/Duration: getting worse, other (8 months) Past History - Past Medical History Allergies/Adverse Reactions: Allergies Allergy/AdvReac Type Severity Reaction Status Date / Time No Known Allergies Allergy Verified 09/11/18 17:17 Home Medications: Ambulatory Orders Meclizine HCl [Antivert -] 25 mg PO TID 09/03/16 Metoclopramide HCl [Reglan -] 10 mg PO TID 09/03/16 Folic Acid 1 mg PO DAILY 09/22/16 Quetiapine Fumarate "Xr" [Seroquel XR] 150 mg PO DAILY 09/22/16 Aspirin Coated [Ecotrin -] 325 mg PO DAILY #30 tab MDD 1 09/24/16 Atorvastatin Ca [Lipitor] 40 mg PO HS #30 tablet MDD 1 09/24/16 Metoprolol Tartrate [Lopressor -] 50 mg PO BID #60 tablet MDD 2 09/24/16 Ranolazine [Ranexa -] 500 mg PO BID #60 tab MDD 2 09/24/16 Alprazolam [Xanax] 0.25 mg PO BID PRN #10 tablet MDD 2 05/29/17 levETIRAcetam [Keppra -] 500 mg PO BID #60 tablet MDD 2 05/29/17 Mupirocin Ointment [Bactroban 2% Ointment -] 1 applic TP BID #1 tube 04/26/18 Naproxen 500 mg PO BID PRN #20 tablet 04/26/18 Sulfamethoxazole/Trimethoprim [Bactrim Ds -] 1 tab PO BID #14 tablet 04/26/18 Gabapentin [Neurontin] 300 mg PO BID PRN #20 capsule 09/11/18 Anemia: No Asthma: No Cancer: No Cardiac Disorders: Yes ([place] 25 years ago) CVA: No COPD: No CHF: No Dementia: No Diabetes: Yes GI Disorders: Yes (ulcers) Disorders: No HTN: Yes Hypercholesterolemia: Yes Liver Disease: No Psychiatric Problems: Yes Seizures: Yes (2010) Thyroid Disease: No - Surgical History Abdominal Surgery: No Appendectomy: No Cardiac Surgery: No Cholecystectomy: No Lung Surgery: No Neurologic Surgery: No Orthopedic Surgery: Yes (L. Hand 2, 3, 4, 5 fingers amputated) - Family Disease History Family Disease History: Heart Disease: Father, Brother - Immunization History Immunization Up to Date: Yes - Suicide/Smoking/Psychosocial Hx Smoking Status: No Smoking History: Never smoked Have you smoked in the past 12 months: No Number of Cigarettes Smoked Daily: 1 If you are a former smoker, when did you quit?: 8 'Breaking Loose' booklet given: 09/23/16 Hx Alcohol Use: No Drug/Substance Use Hx: No Substance Use Type: None, Alcohol Hx Substance Use Treatment: No Review of Systems - Review of Systems Able to Perform ROS?: Yes Is the patient limited German proficient: No Constitutional: No: Malaise, Weakness HEENTM: No: Symptoms Reported Respiratory: No: Symptoms reported Cardiac (ROS): No: Symptoms Reported ABD/GI: No: Symptoms Reported, Nausea, Vomiting Musculoskeletal: Yes: Symptoms Reported, See HPI, Muscle Pain (pain to posterior left ankle to plantar aspect of left foot). No: Joint Swelling, Muscle Weakness, Joint Stiffness Integumentary: No: Symptoms Reported, Bruising, Change in Color Neurological: No: Numbness, Paresthesia, Tingling, Weakness All Other Systems: Reviewed and Negative *Physical Exam - Vital Signs Last Vital Signs Temp Pulse Resp BP Pulse Ox 97.4 F L 107 H 20 138/87 97 09/11/18 17:13 09/11/18 17:13 09/11/18 17:13 09/11/18 17:13 09/11/18 17:13 - Physical Exam General Appearance: Yes: Nourished, Appropriately Dressed. No: Apparent Distress HEENT: positive: Normal ENT Inspection Neck: positive: Supple Respiratory/Chest: negative: Respiratory Distress, Accessory Muscle Use Cardiovascular: negative: Regular Rhythm, Regular Rate Vascular Pulses: Dorsalis-Pedis (R): 4+, Doralis-Pedis (L): 4+ Musculoskeletal: positive: Normal Inspection, Other (subjective tenderness to left plantar aspect of left foot and anterior and posterior of left ankle. no swelling to foot). negative: Decreased Range of Motion Extremity: positive: Normal Capillary Refill, Normal Inspection, Normal Range of Motion, Other (normal palpable pulses to left dorsalis pedis and posterior tibialis). negative: Swelling, Erythema Integumentary: positive: Normal Color. negative: Erythema, Bruising Neurologic: positive: Fully Oriented, Alert, Normal Response, Motor Strength 5/ 5. negative: Numbness, Sensory Deficit ED Treatment Course - Medications Given in the ED: ED Medications Discontinued Medications Generic Name Dose Route Start Last Admin Trade Name Freq PRN Reason Stop Dose Admin Gabapentin 300 mg 09/11/18 18:01 09/11/18 18:11 Neurontin - PO 09/11/18 18:02 300 mg ONCE ONE Administration Ketorolac Tromethamine 30 mg 09/11/18 18:01 09/11/18 18:11 Toradol Injection - IM 09/11/18 18:02 30 mg ONCE ONE Administration Medical Decision Making - Medical Decision Making 09/11/18 18:23 Patient with history of xyj-euwqmee-ltoqegxeg diabetes on metformin and hyperlipidemia on Lipitor present with complaint of a months history of persistent left foot pain eating from left ankle to bottom of left foot. Patient reported being seen by a doctor which he does not recall the name for foot pain and was ordered MRI but had to miss MRI appointment due to unable to have anybody take him to the appointment. MRI reschedule twice and patient missed appointment. Patient reported not taking anything for pain and was not given anything by providing doctor for pain. Patient denies numbness sensation to foot. Denies any other symptoms or any other pain anywhere else. Exam significant for surgery to tenderness to left ankle down to plantar aspect of left foot. No foot swelling or ecchymosis. No skin sensation to foot. Normal pulses to dorsalis pedis of left foot. No visible deformity or evidence of trauma to foot. Symptoms likely diabetic neuropathy versus less likely trauma as symptoms has been persistent for 8 months. Toradol 30 mg IM ordered for pain and 1 dose of gabapentin 20 mg by mouth given. Patient is stable for discharge on gabapentin as needed for pain with podiatry follow-up. Unable to reschedule MRI appointment due to Wednesday schedule and MRI closed. Patient advised to call tomorrow to reschedule MRI appointment of left foot *DC/Admit/Observation/Transfer Diagnosis at time of Disposition: DM Diabetes mellitus type 2, Left foot pain, Diabetic neuropathy, painful - Discharge Dispostion Disposition: HOME Condition at time of disposition: Stable Decision to Admit order: No - Prescriptions Prescriptions: Gabapentin [Neurontin] 300 mg PO BID PRN #20 capsule PRN Reason: left foot pain - Referrals Referrals: Trae Chaudhary MD [Staff Physician] - - Patient Instructions Printed Discharge Instructions: Diabetic Neuropathy, Neuropathic Pain Additional Instructions: Take prescribed medication as prescribed for left foot pain. Called MRI tomorrow on [phone] to rescheduled MRI appointment. follow-up with referred . Follow-up with referred podiatry Print Language: ENGLISH - Post Discharge Activity
[2018-09-11 18:56] VITALS: BP 119/78; PULSE 89; TEMP 98.2
== END 2018-09-11 18:41 | disposition home or self-care (01) ==
LOC: JER 17:10
PROC: 3E0233Z Introduction of Anti-inflammatory into Muscle, Percutaneous Approach (ICD-10-PCS; principal; 2018-09-11)
DX: E11.40 Type 2 diabetes mellitus with diabetic neuropathy, unspecified (principal); Z79.84 Long term (current) use of oral hypoglycemic drugs; E78.5 Hyperlipidemia, unspecified; I25.10 Atherosclerotic heart disease of native coronary artery without angina pectoris; I10 Essential (primary) hypertension; I25.2 Old myocardial infarction; Z86.69 Personal history of other diseases of the nervous system and sense organs; Z87.19 Personal history of other diseases of the digestive system
CPT/HCPCS: 96372; 99282-25

== ENCOUNTER 2018-09-20 09:05 | Inpatient (IN) | payer MEDICARE, OTHER | END 2018-09-23 12:28 | LOC: JER 09:05 → JERBED 12:00 → J7W 15:18 ==

== ENCOUNTER 2019-03-17 09:38 | Emergency (ER) | payer MEDICARE, OTHER ==
[2019-03-17 10:00] VITALS: TEMP 98; BMI 28.3
--- NOTE | 2019-03-17 11:08 | PDOC ---
History of Present Illness - General Chief Complaint: Urinary Problem Stated Complaint: RT LEG PAIN Time Seen by Provider: 03/17/19 10:24 History Source: Patient Exam Limitations: No Limitations - History of Present Illness Initial Comments: 03/17/19 11:11 68 yo male pmh of DM and prostate surgery 15 years ago presents to the ED with penile pain and leg pain. Pt states since his surgery 15 years ago he has had penile pain of the same quality and intensity as today, when asked why he presented to the ED today, pt states "I always come to the ER for this, they do nothing and send me home." Pt states the pain is constant, not just on urination , pt has urinated today and denies suprapubic pain. Pt states he would like his prostate taken out. Discussed with pt about f/u Past History - Past Medical History Allergies/Adverse Reactions: Allergies Allergy/AdvReac Type Severity Reaction Status Date / Time No Known Allergies Allergy Verified 03/17/19 09:52 Home Medications: Ambulatory Orders Meclizine HCl [Antivert -] 25 mg PO TID 09/03/16 Metoclopramide HCl [Reglan -] 10 mg PO TID 09/03/16 Folic Acid 1 mg PO DAILY 09/22/16 Quetiapine Fumarate "Xr" [Seroquel XR] 150 mg PO DAILY 09/22/16 Aspirin Coated [Ecotrin -] 325 mg PO DAILY #30 tab MDD 1 09/24/16 Atorvastatin Ca [Lipitor] 40 mg PO HS #30 tablet MDD 1 09/24/16 Metoprolol Tartrate [Lopressor -] 50 mg PO BID #60 tablet MDD 2 09/24/16 Ranolazine [Ranexa -] 500 mg PO BID #60 tab MDD 2 09/24/16 Alprazolam [Xanax] 0.25 mg PO BID PRN #10 tablet MDD 2 05/29/17 levETIRAcetam [Keppra -] 500 mg PO BID #60 tablet MDD 2 05/29/17 Mupirocin Ointment [Bactroban 2% Ointment -] 1 applic TP BID #1 tube 04/26/18 Naproxen 500 mg PO BID PRN #20 tablet 04/26/18 Sulfamethoxazole/Trimethoprim [Bactrim Ds -] 1 tab PO BID #14 tablet 04/26/18 Gabapentin [Neurontin] 300 mg PO BID PRN #20 capsule 09/11/18 Pramipexole Dihydrochloride [Mirapex -] 0.25 mg PO HS #14 tablet 09/22/18 Anemia: No Asthma: Yes Cancer: No Cardiac Disorders: Yes ([place] 25 years ago) CVA: No COPD: No CHF: No Dementia: No Diabetes: Yes GI Disorders: Yes (ulcers) Disorders: No HTN: Yes Hypercholesterolemia: Yes Liver Disease: No Psychiatric Problems: Yes Seizures: Yes (2010) Thyroid Disease: No - Surgical History Abdominal Surgery: No Appendectomy: No Cardiac Surgery: Yes (stent placement - 7yrs ago) Cholecystectomy: No Lung Surgery: No Neurologic Surgery: No Orthopedic Surgery: Yes (L. Hand 2, 3, 4, 5 fingers amputated) - Immunization History Immunization Up to Date: Yes - Psycho Social/Smoking Cessation Hx Smoking Status: No Smoking History: Never smoked Have you smoked in the past 12 months: No Number of Cigarettes Smoked Daily: 1 If you are a former smoker, when did you quit?: 8 'Breaking Loose' booklet given: 09/23/16 Hx Alcohol Use: No Drug/Substance Use Hx: No Substance Use Type: None Hx Substance Use Treatment: No *Physical Exam - Vital Signs Last Vital Signs Temp Pulse Resp BP Pulse Ox 98 F 101 H 18 145/83 99 03/17/19 09:53 03/17/19 09:53 03/17/19 09:53 03/17/19 09:53 03/17/19 09:53 ED Treatment Course - LABORATORY CBC & Chemistry Diagram: 03/17/19 11:45 03/17/19 11:45 Discharge - Discharge Information Problems reviewed: Yes Clinical Impression/Diagnosis: Urinary retention Condition: Stable Disposition: HOME - Admission No - Follow up/Referral Referrals: Gabriel Hussein [Primary Care Provider] - Ken Baptiste MD [Staff Physician] - - Patient Discharge Instructions Patient Printed Discharge Instructions: DI for Urinary Retention in Men Additional Instructions: Please see your Primary Doctor within the next 48 hours. Make an appointment to see the urologist referred to you as soon as possible for your urinary concerns. Continue taking your home dosed medications as prescribed and use the lidoderm patches sent to your pharmacy as directed. Return to the ER for new or concerning symptoms Thank you Print Language: YORUBA - Post Discharge Activity
--- NOTE | 2019-03-17 11:10 | PDOC ---
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 Petersen is a 68 yo M with h/o HTN, asthma, HLD, NIDDM, CVA, CAD s/p PCI and stent placement x 1, vertigo, non healing left wound ulcer, ?BPH who presents to the ER with a complaint of chronic back pain, and problems with urination The patient reports that he has not followed up with Urology since his surgery 15 years ago He is very concerned about his prostate Reports subjective fevers last night He has had no change in his back pain He does no feel like his bladder is full, rather he feels like he does not have any urine in his bladder He denies bowel or bladder incontinence, leg weakness, hematuria, abdominal pain , diarrhea, constipation, weakness, sensory changes PMHx: as noted above. Does not f/w cardiology. Denies h/o NE, stent placement, CABG. SHx: Denies Etoh, IVDA, tobacco use Allergies: NKDA Primary Care Physician: Not on staff 03/17/19 11:44 - Physicial Exam PE: 03/17/19 11:56 GENERAL: The patient is in no acute distress. ENT: Ears normal, nares patent, oropharynx clear without exudates. Moist mucous membranes. NECK: Normal range of motion, supple LUNGS: Breath sounds equal, clear to auscultation bilaterally. No wheezes, and no crackles. HEART:Regular rate and rhythm, normal S1 and S2 without murmur, rub or gallop. ABDOMEN: Soft, nontender, normoactive bowel sounds. EXTREMITIES: Normal range of motion, no edema. NEUROLOGICAL: Cranial nerves II through XII grossly intact. Normal speech. No focal neurological deficits. SKIN: Warm, Dry, normal turgor, no rashes or lesions noted. - Medical Decision Making 03/17/19 11:57 68 yo m presenting with a complaint of difficulty urinating/pain in the bladder , and chronic back pain Will do: Labs UA Analgesia POCUS Re Assess 03/17/19 13:50 Laboratory Tests 12/09/2803/17/19 03/17/19 11:45 11:45 12:15 WBC 7.0 Hgb 13.6 Hct 40.0 D Plt Count 172 BUN 18.1 H Creatinine 1.4 H Urine Nitrite Negative Ur Leukocyte Esterase Negative Will plan to discharge to home Pt will need to call Urology for follow up Will need to get pain medication for chronic pain
[2019-03-17] MEDS ORDERED: LIDOCAINE 5% TOPICAL PATCH TP ONE (11:44)
[2019-03-17] MEDS ORDERED: ACETAMINOPHEN 1000 MG/100 ML VIAL (NON FORMULARY) IVPB ONE (11:44)
[2019-03-17 12:02] LABS: BASO % 0.7 % (0-2.0); EOS % 2.2 % (0-4.5); HEMOGLOBIN 13.6 GM/dL (11.7-16.9); LYMPH % 33.3 % (8-40); MCH 28.5 pg (25.7-33.7); MCHC 34.1 g/dl (32.0-35.9); MEAN CELL VOLUME 83.4 fl (80-96); MEAN PLT VOLUME 9.3 fl (7.5-11.1); MONO % 5.9 % (3.8-10.2); NEUT % 57.9 % (42.8-82.8); PLATELET COUNT 172 K/MM3 (134-434); RBC 4.79 M/mm3 (4.00-5.60); RDW 13.1 % (11.9-15.9)
[2019-03-17] MEDS ORDERED: LIDOCAINE 5% TOPICAL PATCH ONE (12:09)
[2019-03-17] MEDS ORDERED: ACETAMINOPHEN INJECTION 100 ML IVPB ONE (12:09)
[2019-03-17 12:30] LABS: URINE APPEARANCE CLOUDY; URINE BILIRUBIN NEGATIVE (NEGATIVE); URINE COLOR DK YELLOW; URINE GLUCOSE (UA) 3+ (NEGATIVE); URINE KETONE TRACE (NEGATIVE); URINE LEUK ESTERASE NEGATIVE (NEGATIVE); URINE NITRITE NEGATIVE (NEGATIVE); URINE PROTEIN 3+ (NEGATIVE)
[2019-03-17 12:41] LABS: ALBUMIN 4.5 g/dl (3.4-5.0); BILIRUBIN,TOTAL 0.5 mg/dL (0.2-1); BLOOD UREA NITROGEN 18.1 mg/dL (7-18); CALCIUM 8.9 mg/dL (8.5-10.1); CREATININE 1.4 mg/dL (0.55-1.3); POTASSIUM 4.4 mmol/L (3.5-5.1)
[2019-03-17 13:59] VITALS: BP 159/78; PULSE 80
[2019-03-17 14:09] LABS: URINE RBC 0-4 /hpf (0-4); URINE WBC 0-5 /hpf (0-5)
[2019-03-17 14:10] LABS: EPI CELLS 0-5 /HPF (0-5/HPF); HYALINE CASTS 0-8 /lpf (0-8); URINE BACTERIA NEGATIVE /hpf (NEGATIVE)
[2019-03-17] MEDS ORDERED: LIDOCAINE PATCH REMOVAL MC SCH (22:00)
== END 2019-03-17 13:45 | disposition home or self-care (01) ==
LOC: JER 09:38
PROC: 3E033NZ Introduction of Analgesics, Hypnotics, Sedatives into Peripheral Vein, Percutaneous Approach (ICD-10-PCS; principal; 2019-03-17)
PROC: BT4JZZZ Ultrasonography of Kidneys and Bladder (ICD-10-PCS; 2019-03-17)
DX: R33.8 Other retention of urine (principal); I25.10 Atherosclerotic heart disease of native coronary artery without angina pectoris; I10 Essential (primary) hypertension; Z95.5 Presence of coronary angioplasty implant and graft; G40.909 Epilepsy, unspecified, not intractable, without status epilepticus; J45.909 Unspecified asthma, uncomplicated; E11.9 Type 2 diabetes mellitus without complications; Z87.19 Personal history of other diseases of the digestive system; Z86.73 Personal history of transient ischemic attack (TIA), and cerebral infarction without residual deficits; Z89.022 Acquired absence of left finger(s)
CPT/HCPCS: 36415; 76775; 80053; 81003; 85025; 87086; 96374; 99283-25; J0131

== ENCOUNTER 2019-05-15 12:40 | Emergency (ER) | payer MEDICARE, OTHER ==
[2019-05-15 12:52] VITALS: BMI 28.3
--- NOTE | 2019-05-15 13:48 | PDOC ---
History of Present Illness - General Chief Complaint: Lethargy Stated Complaint: LOSS OF SLEEP Time Seen by Provider: 05/15/19 13:44 - History of Present Illness Initial Comments: 05/15/19 14:54 68 y/o M hx of CVA, ,CAD s/p stent placement, HTN, NIDDM, presents to the ER with 3 days of fatigue,headache and myalgias. He denies any sick contacts. He has had a fever but denies any chills, coughing or vomiting. He endorses nausea, Past History - Past Medical History Allergies/Adverse Reactions: Allergies Allergy/AdvReac Type Severity Reaction Status Date / Time No Known Allergies Allergy Verified 05/15/19 12:48 Home Medications: Ambulatory Orders Meclizine HCl [Antivert -] 25 mg PO TID 09/03/16 Metoclopramide HCl [Reglan -] 10 mg PO TID 09/03/16 Folic Acid 1 mg PO DAILY 09/22/16 Quetiapine Fumarate "Xr" [Seroquel XR] 150 mg PO DAILY 09/22/16 Aspirin Coated [Ecotrin -] 325 mg PO DAILY #30 tab MDD 1 09/24/16 Atorvastatin Ca [Lipitor] 40 mg PO HS #30 tablet MDD 1 09/24/16 Metoprolol Tartrate [Lopressor -] 50 mg PO BID #60 tablet MDD 2 09/24/16 Ranolazine [Ranexa -] 500 mg PO BID #60 tab MDD 2 09/24/16 Alprazolam [Xanax] 0.25 mg PO BID PRN #10 tablet MDD 2 05/29/17 levETIRAcetam [Keppra -] 500 mg PO BID #60 tablet MDD 2 05/29/17 Mupirocin Ointment [Bactroban 2% Ointment -] 1 applic TP BID #1 tube 04/26/18 Naproxen 500 mg PO BID PRN #20 tablet 04/26/18 Sulfamethoxazole/Trimethoprim [Bactrim Ds -] 1 tab PO BID #14 tablet 04/26/18 Gabapentin [Neurontin] 300 mg PO BID PRN #20 capsule 09/11/18 Pramipexole Dihydrochloride [Mirapex -] 0.25 mg PO HS #14 tablet 09/22/18 Lidocaine 5% Patch [Lidoderm Patch -] 1 patch TP DAILY #7 patch 12/06/19 Azithromycin 250 mg PO DAILY #3 tablet 05/15/19 Anemia: No Asthma: Yes Cancer: No Cardiac Disorders: Yes ([place] 25 years ago) CVA: No COPD: No CHF: No Dementia: No Diabetes: Yes GI Disorders: Yes (ulcers) Disorders: No HTN: Yes Hypercholesterolemia: Yes Liver Disease: No Psychiatric Problems: Yes Seizures: Yes (2010) Thyroid Disease: No - Surgical History Abdominal Surgery: No Appendectomy: No Cardiac Surgery: Yes (stent placement - 7yrs ago) Cholecystectomy: No Lung Surgery: No Neurologic Surgery: No Orthopedic Surgery: Yes (L. Hand 2, 3, 4, 5 fingers amputated) - Immunization History Immunization Up to Date: Yes - Psycho Social/Smoking Cessation Hx Smoking Status: No Smoking History: Never smoked Have you smoked in the past 12 months: No Number of Cigarettes Smoked Daily: 1 If you are a former smoker, when did you quit?: 8 'Breaking Loose' booklet given: 09/23/16 Hx Alcohol Use: No Drug/Substance Use Hx: No Substance Use Type: None Hx Substance Use Treatment: No Review of Systems - Review of Systems Constitutional: Yes: Chills, Fever *Physical Exam - Vital Signs Last Vital Signs Temp Pulse Resp BP Pulse Ox 98.7 F 89 18 139/74 100 05/15/19 12:49 05/15/19 12:49 05/15/19 12:49 05/15/19 12:49 05/15/19 12:49 - Physical Exam 05/15/19 14:36 GENERAL: Awake, alert, and fully oriented, in no acute distress HEAD: No signs of trauma, normocephalic, atraumatic EYES: PERRLA, EOMI, sclera anicteric, conjunctiva clear ENT: Auricles normal inspection, hearing grossly normal, nares patent, oropharynx clear without exudates. Moist mucosa NECK: Normal ROM, supple, no lymphadenopathy, JVD, or masses LUNGS: No distress, speaks full sentences, mildly decreased sounds to lung bases. HEART: Regular rate and rhythm, normal S1 and S2, no murmurs, rubs or gallops, peripheral pulses normal and equal bilaterally. ABDOMEN: Soft, nontender, normoactive bowel sounds. No guarding, no rebound. 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 NEUROLOGICAL: Cranial nerves II through XII grossly intact. Normal speech, normal gait, no focal sensorimotor deficits SKIN: Warm, Dry, normal turgor, no rashes or lesions noted 05/15/19 14:37 05/15/19 14:54 ED Treatment Course - LABORATORY CBC & Chemistry Diagram: 05/15/19 15:02 05/15/19 15:02 Medical Decision Making - Medical Decision Making 05/15/19 14:59 68 y/o M hx of CVA, ,CAD s/p stent placement, HTN, NIDDM, presents to the ER with 3 days of fatigue,headache and myalgias. 05/15/19 16:50 white count wnl trop negative. 05/15/19 17:30 pt feeling better after tylenol and 1L NS 05/15/19 17:31 Discharge - Discharge Information Problems reviewed: Yes Clinical Impression/Diagnosis: Body aches Condition: Improved Disposition: HOME - Additional Discharge Information Prescriptions: Azithromycin 250 mg PO DAILY #3 tablet - Follow up/Referral Referrals: Brenda Araujo MD [Primary Care Provider] - - Patient Discharge Instructions Patient Printed Discharge Instructions: DI for Viral Upper Respiratory Infection -- Adult - Post Discharge Activity
[2019-05-15] MEDS ORDERED: SODIUM CHLORIDE 2,313 ML IV ONE (14:34)
[2019-05-15] MEDS ORDERED: ACETAMINOPHEN 1000 MG/100 ML VIAL (NON FORMULARY) IVPB ONE (14:34)
[2019-05-15] MEDS ORDERED: AZITHROMYCIN IVPB 500 MG in DEXTROSE 5%-WATER - 250 ML IVPB ONE (14:42)
[2019-05-15] MEDS ORDERED: ACETAMINOPHEN INJECTION 100 ML IVPB ONE (14:48)
[2019-05-15] MEDS ORDERED: SODIUM CHLORIDE 1,000 ML IV STA (15:11)
[2019-05-15 15:14] LABS: BASO % 0.9 % (0-2.0); EOS % 6.4 % (0-4.5); HEMATOCRIT 38.6 % (35.4-49); HEMOGLOBIN 13.1 GM/dL (11.7-16.9); LYMPH % 35.1 % (8-40); MCH 28.5 pg (25.7-33.7); MCHC 33.9 g/dl (32.0-35.9); MEAN PLT VOLUME 9.9 fl (7.5-11.1); MONO % 4.8 % (3.8-10.2); NEUT % 52.8 % (42.8-82.8); PLATELET COUNT 145 K/MM3 (134-434); RDW 13.8 % (11.9-15.9); WHITE BLOOD COUNT 5.4 K/mm3 (4.0-10.0)
[2019-05-15 15:52] LABS: ALK PHOS 64 U/L (45-117); ANION GAP 7 MMOL/L (8-16); BILIRUBIN,TOTAL 0.3 mg/dL (0.2-1); BLOOD UREA NITROGEN 18.4 mg/dL (7-18); CALCIUM 9.9 mg/dL (8.5-10.1); CHLORIDE 108 mmol/L (98-107); CO2 25 mmol/L (21-32); CREATININE 1.1 mg/dL (0.55-1.3); GLUCOSE,RANDOM 292 mg/dL (74-106); POTASSIUM 4.8 mmol/L (3.5-5.1); SGOT/AST 15 U/L (15-37); SGPT/ALT 30 U/L (13-61); SODIUM 140 mmol/L (136-145); TOT PROT 7.6 g/dl (6.4-8.2)
--- NOTE | 2019-05-15 16:27 | PDOC ---
Documentation entered by Norberto Long SCRIBE, acting as scribe for Krissy Villeda MD. Krissy Villeda MD: This documentation has been prepared by the Mercedes sood Nirvannie, SCRIBE, under my direction and personally reviewed by me in its entirety. I confirm that the documentation accurately reflects all work, treatment, procedures, and medical decision making performed by me. Attending Attestation - Resident Resident Name: LuisTony - ED Attending Attestation I have performed the following: I have examined & evaluated the patient, The case was reviewed & discussed with the resident, I agree w/resident's findings & plan, Exceptions are as noted - HPI HPI: 05/15/19 15:20 The patient is a 68 year old male, with a significant past medical history of HTN, asthma, HLD, DM, CVA, CAD (s/p cardiac stenting x1), vertigo, non healing left wound ulcer, who presents to the emergency department with diffuse body aches, nonproductive cough, and tactile subjective fevers. He denies any recent nausea, vomit, diarrhea or constipation. He denies any recent chest pain or palpitations. He denies any recent dysuria, frequency, urgency or hematuria. Allergies: NKDA Primary Care Physician: Dr. Araujo - Physicial Exam PE: 05/15/19 15:36 GENERAL: Awake, alert, and fully oriented, in no acute distress HEAD: No signs of trauma EYES: PERRLA, EOMI, sclera anicteric, conjunctiva clear ENT: Auricles normal inspection, hearing grossly normal, nares patent, oropharynx clear without exudates. Moist mucosa NECK: Normal ROM, supple, no lymphadenopathy, JVD, or masses LUNGS: Breath sounds equal, clear to auscultation bilaterally. No wheezes, and no crackles HEART: Regular rate and rhythm, normal S1 and S2, no murmurs, rubs or gallops ABDOMEN: Soft, nontender, normoactive bowel sounds. No guarding, no rebound. No masses EXTREMITIES: Normal range of motion, no edema. No clubbing or cyanosis. No cords, erythema, or tenderness NEUROLOGICAL: Cranial nerves II through XII grossly intact. Normal speech SKIN: Warm, Dry, normal turgor, no rashes or lesions noted. - Medical Decision Making 05/15/19 16:22 Pt presents to the ED complaining of diffuse myalgias and subjective fever. Also complains of mild cough and dysuria. Denies nausea and vomiting or sick contacts. Differential includes flu, less likely PNA or UTI. WIll check labs, flu swab, UA and CXR and reassess. 05/15/19 16:26
[2019-05-15 18:19] VITALS: BP 146/90; PULSE 75; TEMP 97.2
--- NOTE | 2019-05-16 09:27 | EKG ---
Test Reason : Blood Pressure : / mmHG Vent. Rate : 069 BPM Atrial Rate : 069 BPM P-R Int : 166 ms QRS Dur : 078 ms QT Int : 378 ms P-R-T Axes : 060 025 046 degrees QTc Int : 405 ms NORMAL SINUS RHYTHM NONSPECIFIC T WAVE ABNORMALITY ABNORMAL ECG WHEN COMPARED WITH ECG OF 20-SEP-2018 09:01, NO SIGNIFICANT CHANGE WAS FOUND Confirmed by Adithya Maldonado MD ([id number]) on 05/16/2019 9:26:51 AM Referred By: Confirmed By:Adithya Maldonado MD
== END 2019-05-15 18:00 | disposition home or self-care (01) ==
LOC: JER 12:40
PROC: 3E0337Z Introduction of Electrolytic and Water Balance Substance into Peripheral Vein, Percutaneous Approach (ICD-10-PCS; principal; 2019-05-15)
PROC: 3E033NZ Introduction of Analgesics, Hypnotics, Sedatives into Peripheral Vein, Percutaneous Approach (ICD-10-PCS; 2019-05-15)
DX: J06.9 Acute upper respiratory infection, unspecified (principal); B97.89 Other viral agents as the cause of diseases classified elsewhere; M79.18 Myalgia, other site; R52 Pain, unspecified; I25.10 Atherosclerotic heart disease of native coronary artery without angina pectoris; I10 Essential (primary) hypertension; Z95.5 Presence of coronary angioplasty implant and graft; I25.2 Old myocardial infarction; E11.9 Type 2 diabetes mellitus without complications; E78.00 Pure hypercholesterolemia, unspecified; G40.909 Epilepsy, unspecified, not intractable, without status epilepticus; Z86.59 Personal history of other mental and behavioral disorders; Z89.022 Acquired absence of left finger(s)
CPT/HCPCS: 36415; 71046-TC-FY; 80053; 82550; 84484; 85025; 87804; 93005; 93010; 96361; 96374; 99284-25; J0131; J7030

== ENCOUNTER 2020-01-15 13:19 | Inpatient (IN) | payer OTHER ==
--- NOTE | 2020-01-15 13:41 | PDOC ---
History of Present Illness - General Chief Complaint: Blood Sugar Problem Stated Complaint: CONFUSED Time Seen by Provider: 01/15/20 13:39 History Source: Patient Exam Limitations: No Limitations - History of Present Illness Initial Comments: 01/15/20 14:[address] helen[place] speaking M PMHx HTN, asthma, HLD, CVA, CAD x1 stent Presenting due to hyperglycemia and leg pain. Patient states he lives at the [facility] and where he receives a once weekly shot of insulin on Sundays. Patient stated he missed this past week and is unsure why. Patient was at his PCP at [address] where he was sent to the ED secondary to confusion. Patient also reports back and leg pain ongoing for the past 10 years. Patient denies headache, chest pain, SOB, N/V/D. 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 Araujo PMHx: PMHx HTN, asthma, HLD, CVA, CAD x1 stent Meds: In Chart Allergies: NKA 01/15/20 14:36 Is this a multiple visit Asthma Patient?: No Timing/Duration: constant Severity: mild NIH Stroke Scale - Initial Evaluation Level of consciousness: Alert Ask patient the month and their age: Answers one correctly Ask patient to open & close eyes; make fist and let go: Obeys both correctly Best gaze (horizontal eye movement): Normal Visual field testing: No visual field loss Facial paresis (Show teeth/raise eyebrows/close eyes tight): Normal symmetrical movement Motor Function: Left Arm: Normal Motor Function: Right Arm: Normal (extends arm 90 (or 45) degrees for 10 seconds without drift Motor Function: Left Leg: Drift Motor Function: Right Leg: Normal (extends leg 30 degrees for 5 seconds without drift) Limb Ataxia: No ataxia Sensory(Use pinprick test arms,legs,trunk,face/side to side): Normal Best language (Describe picture, name items, read sentences): No Aphasia Dysarthria (read several words): Normal articulation Extinction and Inattention: No abnormality - Total Score NIH Stroke Scale Score: 2 Past History - Medical History Allergies/Adverse Reactions: Allergies Allergy/AdvReac Type Severity Reaction Status Date / Time No Known Allergies Allergy Verified 01/15/20 13:29 Home Medications: Ambulatory Orders Meclizine HCl [Antivert -] 25 mg PO TID 05/25/17 Quetiapine Fumarate "Xr" [Seroquel XR] 150 mg PO DAILY 09/22/16 Aspirin Coated [Ecotrin -] 325 mg PO DAILY #30 tab MDD 1 09/24/16 Atorvastatin Ca [Lipitor] 40 mg PO HS #30 tablet MDD 1 09/24/16 Metoprolol Tartrate [Lopressor -] 50 mg PO BID #60 tablet MDD 2 09/24/16 Ranolazine [Ranexa -] 500 mg PO BID #60 tab MDD 2 09/24/16 levETIRAcetam [Keppra -] 500 mg PO BID #60 tablet MDD 2 05/29/17 Gabapentin [Neurontin] 300 mg PO BID PRN #20 capsule 09/11/18 Anemia: No Asthma: Yes Cancer: No Cardiac Disorders: Yes ([place] 25 years ago) CVA: No COPD: No CHF: No Dementia: No Diabetes: Yes GI Disorders: Yes (ulcers) Disorders: No HTN: Yes Hypercholesterolemia: Yes Liver Disease: No Psychiatric Problems: Yes Seizures: Yes (2010) Thyroid Disease: No - Surgical History Abdominal Surgery: No Appendectomy: No Cardiac Surgery: Yes (stent placement - 7yrs ago) Cholecystectomy: No Lung Surgery: No Neurologic Surgery: No Orthopedic Surgery: Yes (L. Hand 2, 3, 4, 5 fingers amputated) - Immunization History Immunization Up to Date: Yes - Psycho-Social/Smoking History Smoking Status: No Smoking History: Smoker current status UNK Have you smoked in the past 12 months: No Number of Cigarettes Smoked Daily: 1 If you are a former smoker, when did you quit?: 8 Information on smoking cessation initiated: No 'Breaking Loose' booklet given: 09/23/16 - Substance Abuse Hx (Audit-C & DAST Scrn) How often the patient has a drink containing alcohol: Never Score: In Men: 4 or > Positive; In Women: 3 or > Positive: 0 Screen Result (Pos requires Nsg. Audit-10AR): Negative In the last yr the pt used illegal drug/Rx for NonMed reason: No Score: Yes response is considered Positive: 0 Screen Result (Positive result requires Nsg. DAST-10): Negative Review of Systems - Review of Systems Able to Perform ROS?: Yes Is the patient limited Upper Sorbian proficient: No Constitutional: No: Chills, Fever HEENTM: No: Blurred Vision, Double Vision Respiratory: No: Cough, Shortness of Breath Cardiac (ROS): No: Chest Pain, Lightheadedness ABD/GI: No: Constipated, Diarrhea, Nausea, Vomiting : No: Burning, Dysuria Musculoskeletal: Yes: Back Pain. No: Joint Stiffness Integumentary: No: Dryness, Erythema, Rash Neurological: No: Headache, Numbness, Tingling, Tremors, Dizziness Hematologic/Lymphatic: No: Easy Bleeding, Easy Bruising *Physical Exam - Vital Signs Last Vital Signs Temp Pulse Resp BP Pulse Ox 98.6 F 110 H 20 157/91 96 01/15/20 13:29 01/15/20 13:29 01/15/20 13:29 01/15/20 13:29 01/15/20 13:29 - Physical Exam General Appearance: Yes: Nourished, Appropriately Dressed. No: Apparent Distress Respiratory/Chest: positive: Lungs Clear, Normal Breath Sounds. negative: Chest Tender, Respiratory Distress, Accessory Muscle Use, Crackles, Rales, Stridor, Wheezing Cardiovascular: positive: Regular Rhythm, Regular Rate. negative: Edema, JVD, Murmur Gastrointestinal/Abdominal: positive: Normal Bowel Sounds, Flat, Soft. negative: Tender, Distended, Guarding, Rebound Musculoskeletal: positive: Normal Inspection. negative: CVA Tenderness Extremity: positive: Normal Inspection. negative: Tender, Swelling, Calf Tenderness Integumentary: positive: Normal Color, Dry, Warm Neurologic: positive: Fully Oriented, Alert, Normal Mood/Affect, Normal Response ED Treatment Course - LABORATORY CBC & Chemistry Diagram: 01/15/20 15:26 01/15/20 15:26 - ADDITIONAL ORDERS Additional order review: Laboratory Results 01/15/20 13:25 POC Glucometer 276 01/15/20 13:25 POC Glucometer 276 Medical Decision Making - Medical Decision Making 01/15/20 15:[address] helen[place] speaking M PMHx HTN, asthma, HLD, CVA, CAD x1 stent Presenting due to hyperglycemia and leg pain. DDx: Seizure, AMS secondary to hyperglycemic episode Labs: WBC 6, Cr 1.4, AST 13 UA: Protein 2+, Glucose 1+, trace ketones CT: No acute evidence of intracranial pathology EKG: Sinus tachy, QTc 408ms, rate 103 NIHHS: Score 2 - Report from [facility] stated the patient was referred for mild cognitive impairment, so stated history of seizures and complains of numbness/tingling in b/l feet. Eval for memory loss. - Phone call with provider states patient was unable to state the date and asking patient in the waiting room weird questions which is far form his baseline. Dispo: Admission 01/15/20 17:44 Discharge - Discharge Information Problems reviewed: Yes Clinical Impression/Diagnosis: Altered mental status Qualifiers: Altered mental status type: disorientation Qualified Code(s): R41.0 - Disorientation, unspecified - Follow up/Referral - Patient Discharge Instructions - Post Discharge Activity
[2020-01-15 16:25] LABS: BASO % 0.5 % (0-2.0); EOS % 2.2 % (0-4.5); HEMATOCRIT 41.1 % (35.4-49); LYMPH % 27.9 % (8-40); MCH 28.6 pg (25.7-33.7); MCHC 33.9 g/dl (32.0-35.9); MEAN CELL VOLUME 84.4 fl (80-96); MEAN PLT VOLUME 9.7 fl (7.5-11.1); NEUT % 65.4 % (42.8-82.8); PLATELET COUNT 172 K/MM3 (134-434); RBC 4.88 M/mm3 (4.00-5.60); RDW 13.3 % (11.9-15.9)
[2020-01-15 16:35] LABS: ALBUMIN 4.8 g/dl (3.4-5.0); BILIRUBIN,TOTAL 0.3 mg/dL (0.2-1); BLOOD UREA NITROGEN 19.7 mg/dL (7-18); CALCIUM 9.4 mg/dL (8.5-10.1); CREATININE 1.4 mg/dL (0.55-1.3); POTASSIUM 5.1 mmol/L (3.5-5.1); TOT PROT 9.2 g/dl (6.4-8.2)
--- OUTSIDE RECORDS SUMMARY | 2020-01-15 16:52 | XMS ---
:1950 Author Organization [facility] Care Team Providers Name Role Phone Melissa Mcgill Unavailable Steve Luke Unavailable [phone] GUY BAIRES, KORY Unavailable GUY BAIRES, KORY Unavailable GUY BAIRES, KORY Unavailable GUY BAIRES, KORY Unavailable GUY BAIRES, KORY Unavailable GUY BAIRES, KORY Unavailable [employer], MOBOLAJI Unavailable [employer]YEK[employer], MOBOLAJI Unavailable [employer], MOBOLAJI Unavailable O[employer], MOBOLAJI Unavailable AGYEPONG [employer], YANETH Unavailable AGYEPONG [employer], YANETH Unavailable SEBASTIAN KIMBROUGH MD Unavailable Unavailable SEBASTIAN KIMBROUGH MD Unavailable Unavailable SEBASTIAN KIMBROUGH MD Unavailable Unavailable SEBASTIAN KIMBROUGH MD Unavailable Unavailable SEBASTIAN KIMBROUGH MD Unavailable Unavailable SEBASTIAN KIMBROUGH MD Unavailable Unavailable SEBASTIAN KIMBROUGH MD Unavailable Unavailable SEBASTIAN KIMBROUGH MD Unavailable Unavailable SEBASTIAN KIMBROUGH MD Unavailable Unavailable SEBASTIAN KIMBROUGH MD Unavailable Unavailable SEBASTIAN KIMBROUGH MD Unavailable Unavailable SHRAVAN MENDOSA Unavailable Unavailable MARK BAIRES, RONAL Unavailable MARK BAIRES, RONAL Unavailable JAIDEN ABDI LCSW Unavailable Isaiah Portillo Unavailable [phone] Nabeel Calerolena Unavailable [phone] Nabeel Calerolena Unavailable [phone] MARINO LEE MD Unavailable Unavailable MARINO LEE MD Unavailable Unavailable MARINO LEE MD Unavailable Unavailable MARINO LEE MD Unavailable Unavailable MARINO LEE MD Unavailable Unavailable MARINO LEE MD Unavailable Unavailable RAVANMEHR, BALJINDER Unavailable RAVANMEHR, BALJINDER Unavailable NAIDA BAIRES, RINY Unavailable NAIDA BAIRES, RINY Unavailable NAIDA BAIRES, RINY Unavailable NAIDA BAIRES, RINY Unavailable Adolfo Burnett Unavailable [phone] JUDD RICHTER Unavailable Unavailable NABEEL FERRAROLENA Unavailable Unavailable ANTONIO BAIRES, [facility] Cole Unavailable ANTONIO BAIRES, Cole Unavailable ANTONIO BAIRES, Cole Unavailable ANTONIO BAIRES, Cole Unavailable ANTONIO BAIRES, Cole Unavailable ANTONIO BAIRES, Cole Unavailable ANTONIO BAIRES, Cole Unavailable ANTONIO MD, A Unavailable ANTONIO MD, A Unavailable ANTONIO MD, A Unavailable ANTONIO MD, A Unavailable ANTONIO MD, A Unavailable ANTONIO MD, A Unavailable ANTONIO MD, A Unavailable DION [employer] Unavailable DION [employer] Unavailable DION [employer] Unavailable Janine-Bertrand Unavailable [phone] Janine-Bertrand Unavailable [phone] BORON MD Unavailable Yakima DPM Unavailable Yakima DPM Unavailable WANG MD Unavailable Yousuf MD Unavailable Unavailable Yousuf MD Unavailable Unavailable LB DPM Unavailable LB DPM Unavailable Marv Unavailable Unavailable Marv Unavailable Unavailable ASEMOTA MD Unavailable JOS LMHC Unavailable Re-disclosure Warning The records that you are about to access may contain information from federally- assisted alcohol or drug abuse programs. If such information is present, then the following federally mandated warning applies: This information has been disclosed to you from records protected by federal confidentiality rules (42 CFR part 2). The federal rules prohibit you from making any further disclosure of this information unless further disclosure is expressly permitted by the written consent of the person to whom it pertains or as otherwise permitted by 42 CFR part 2. A general authorization for the release of medical or other information is NOT sufficient for this purpose. The Federal rules restrict any use of the information to criminally investigate or prosecute any alcohol or drug abuse patient.The records that you are about to access may contain highly sensitive health information, the redisclosure of which is protected by Article 27-F of the [facility] Public Health law. If you continue you may haveaccess to information: Regarding HIV / AIDS; Provided by facilities licensed or operated by the [facility] Office of Mental Health; or Provided by the [facility] Office for People With Developmental Disabilities. If such information is present, then the following [facility] mandated warning applies: This information has been disclosed to you from confidential records which are protected by state law. State law prohibits you from making any further disclosure of this information without the specific written consent of the person to whom it pertains, or as otherwise permitted by law. Any unauthorized further disclosure in violation of state law may result in a fine or nursing home sentence or both. A general authorization for the release of medical or other information is NOT sufficient authorization for further disclosure. Allergies and Adverse Reactions Type Description Substance Reaction Status Data Source(s ) Allergy to No Known Allergies No known GREENW AY (Mount substance allergies [facility]) Allergy to No Known Allergies No known GREENW AY (Mount substance allergies [facility]) Allergy to No Known Allergies No known GREENW AY (Mount substance allergies [facility]) Allergy to No Known Allergies No known GREENW AY (Mount substance allergies [facility]) Allergy to No Known Allergies No known GREENW AY (Mount substance allergies [facility]) Allergy to No Known Allergies No known GREENW AY (Mount substance allergies [facility]) Allergy to No Known Allergies No known GREENW AY (Mount substance allergies [facility]) Allergy to No Known Allergies No known GREENW AY ([place] substance allergies [place] ([facility]) Allergy to No Known Allergies No known GREENW AY ([place] substance allergies [place] ([facility]) Allergy to No Known Allergies No known GREENW AY ([place] substance allergies [place] ([facility]) Allergy to No Known Allergies No known GREENW AY ([place] substance allergies [place] ([facility]) Allergy to No Known Allergies No known GREENW AY (Mount substance allergies [facility]) Allergy to No Known Allergies No known GREENW AY (Mount substance allergies [place] ([facility]) Allergy to No Known Allergies No known GREENW AY (Mount substance allergies [facility]) Allergy to No Known Allergies No known GREENW AY ([place] substance allergies [place] ([facility]) Allergy to No Known Allergies No known GREENW AY ([place] substance allergies [place] ([facility]) Allergy to No Known Allergies No known GREENW AY ([place] substance allergies [place] ([facility]) Allergy to No Known Allergies No known GREENW AY ([place] substance allergies [place] ([facility]) Allergy to No Known Allergies No known GREENW AY ([place] substance allergies [place] ([facility]) Allergy to No Known Allergies No known GREENW AY ([place] substance allergies [place] ([facility]) Allergy to No Known Allergies No known GREENW AY ([place] substance allergies [place] ([facility]) Allergy to No Known Allergies No known GREENW AY ([place] substance allergies [place] ([facility]) Allergy to No Known Allergies No known GREENW AY ([place] substance allergies [place] ([facility]) Allergy to No Known Allergies No known GREENW AY ([place] substance allergies [place] ([facility]) Allergy to No Known Allergies No known GREENW AY ([place] substance allergies [place] ([facility]) Allergy to No Known Allergies No known GREENW AY ([place] substance allergies [place] ([facility]) Allergy to No Known Allergies No known GREENW AY ([place] substance allergies [place] ([facility]) Allergy to No Known Allergies No known GREENW AY ([place] substance allergies [place] ([facility]) Allergy to No Known Allergies No known GREENW AY ([place] substance allergies [place] ([facility]) Allergy to No Known Allergies No known GREENW AY ([place] substance allergies [place] ([facility]) Allergy to No Known Allergies No known GREENW AY ([place] substance allergies [place] ([facility]) Allergy to No Known Allergies No known GREENW AY ([place] substance allergies [place] ([facility]) Allergy to No Known Allergies No known GREENW AY ([place] substance allergies [place] ([facility]) Allergy to No Known Allergies No known GREENW AY ([place] substance allergies [place] ([facility]) Allergy to No Known Allergies No known GREENW AY ([place] substance allergies [place] ([facility]) Allergy to No Known Allergies No known GREENW AY ([place] substance allergies [place] ([facility]) Allergy to No Known Allergies No known GREENW AY ([place] substance allergies [place] ([facility]) Allergy to No Known Allergies No known GREENW AY ([place] substance allergies [place] ([facility]) Allergy to No Known Allergies No known GREENW AY ([place] substance allergies [place] ([facility]) Allergy to No Known Allergies No known GREENW AY ([place] substance allergies [place] ([facility]) Allergy to No Known Allergies No known GREENW AY ([place] substance allergies [place] ([facility]) Allergy to No Known Allergies No known GREENW AY ([place] substance allergies [place] ([facility]) Allergy to No Known Allergies No known GREENW AY ([place] substance allergies [facility]) Allergy to No Known Allergies No known GREENW AY ([place] substance allergies [facility]) Allergy to No Known Allergies No known GREENW AY ([place] substance allergies [place] ([facility]) Allergy to No Known Allergies No known GREENW AY ([place] substance allergies [place] ([facility]) Allergy to No Known Allergies No known GREENW AY ([place] substance allergies [place] ([facility]) Allergy to No Known Allergies No known GREENW AY ([place] substance allergies [facility]) Allergy to No Known Allergies No known GREENW AY ([place] substance allergies [facility]) Allergy to No Known Allergies No known GREENW AY ([place] substance allergies [place] ([facility]) Allergy to No Known Allergies No known GREENW AY ([place] substance allergies [facility]) Allergy to No Known Allergies No known GREENW AY ([place] substance allergies [facility]) Allergy to No Known Allergies No known GREENW AY ([place] substance allergies [place] ([facility]) Allergy to No Known Allergies No known GREENW AY ([place] substance allergies [place] ([facility]) Allergy to No Known Allergies No known GREENW AY ([place] substance allergies [facility]) Allergy to No Known Allergies No known GREENW AY ([place] substance allergies [place] ([facility]) Food allergy No Known Food No Known Food [facility] Allergies Allergies [facility] Drug allergy No Known Drug No Known Drug [facility] Allergies Allergies [facility] Propensity to Propensity to Propensity to NEXTG EN ([facility] adverse reactions adverse reactions adverse [facility] Medical (disorder) (disorder) reactions Center) (disorder) Encounters Encounter Providers Location Date Indications Data Source(s ) OutpatientOFF Attender: Mental NEXTGEN ( [facility] Med ical T VISIT, EST [facility] 09:52:0 Center) 0 AM EDT - 020 09:52:0 0 AM EDT OutpatientOFF Attender: Mental N[facility]GEN [facility] Med [facility] T VISIT, EST [facility] 09:32:0 Center) 0 AM EDT - 020 09:32:0 0 AM EDT Outpatient<td Attender: RADHA (M ount ID="encounter [facility] 020 Fernando TypeDescripti NOODLE CATALYST MAKER 11:05:0 Neighborhoo d onID0">*No 0 AM Health Center) Show*</td><td EDT - >[facility]EN [facility] 020 NOODLE 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 11:30:0 Neighborh ood onID1">*Phone Center 0 AM Health Cent er) *</td><td>GIF EDT - TY [facility]</td><td>[facility] 11:59[facility] Community 0 PM Health EDT Center</td><t d>11/29/2019< /td><td></td> Attender: Mental NEXTGEN ([facility] 020 Tw[address] Medica l [facility] 11:23:0 Center) 0 AM EDT - 020 11:23:0 0 AM EDT Outpatient<td Attender: Wu RADHA (M ount ID[facility] [address] [facility] 02:53:0 Neighborhoo d onID2">PATIEN Center 0 PM Health [facility]) T EDT - ADVOCACY</td> <td>Melissa 020 Mcgill</td>< 11:59:0 td>[place] 0 PM [facility] EDT Health Center</td><t d>10/25/2019< /td><td></td> Outpatient<td Attender: Wu Mild Cognitive GREENWA Y (Mount ID="[facility] ImpairmentMild Cogniti ve [facility] 11:45:0 ImpairmentHypertensi on Neighborhood onID3">WALKIN Center 0 AM (systemic)Di[facility]) S</td><td>GIF EDT - MellitusHypertension [facility] (systemic)Diabetes [employer]</td><td>Y 020 Mellitus onkers 12:48:5 Community 0 PM Health EDT Center</td><t d>10/23/2019< /td><td><cont ent ID="encounter DiagnosisID3- 0">Diabetes Mellitus</con tent>, <content ID="encounter DiagnosisID3- 1">Mild Cognitive Impairment</c ontent>, <content ID="encounter DiagnosisID3- 2">Hypertensi on (systemic)</c ontent></td> Mild Cognitive Impairment Mild Cognitive Impairment Hypertension (systemic) Diabetes Mellitus Hypertension (systemic) Diabetes Mellitus Attender: Mental 10/10/2019 [facility] 09:56:00 AM [facility] 10/10/2019 Medical 09:56:00 AM Center) EDT Outpatient Attender: Mental 09/15/2019 [facility]/OUT [facility] 03:40:00 PM ([facility] VISIT, EST lla 09/15/2019 Medical 03:40:00 PM Center) EDT Outpatient Attender: Wu 09/15/2019 [facility] <[facility] 11:43:00 AM (Annia King ID="[facility] EDT [facility] 09/15/2019 Health criptionID 11:59:00 PM Center) 4">PATIENT EDT ADVOCACY</ td><td>Samreen dy Mcgill</t d><td>[facility]</td ><td>09/14</td> <td></td> Attender: Mental 09/13/2019 [facility] 02:13:00 PM ([facility] EDT - [facility] 09/13/2019 Medical 02:13:00 PM Center) EDT Outpatient Attender: Wu 09/08/2019 [facility] <[facility] 12:16:00 PM (Annia King ID="[facility] EDT [facility] 09/08/2019 Health criptionID 11:59:00 PM Center) 5">PATIENT EDT ADVOCACY</ td><td>Samreen dy Mcgill</t d><td>[facility]</td ><td>09/07</td> <td></td> Outpatient Attender: Wu 09/08/2019 ObesityEssential CHAMBERINO <td [facility] 09:30:00 AM HypertriglyceridemiaAnem iaObe (Annia King ID="encoun [employer] Health EDT - sityEssential [facility] 09/[facility]2019 HypertriglyceridemiaAnemi aObe Health criptionID 10:55:02 AM sityEssential Center) 6">WALKINS EDT HypertriglyceridemiaAnemi aObe </td><td>[facility] HypertriglyceridemiaAnemi aObe [facility] sityMild Cognitive [employer]</td><t ImpairmentEssential d>Wu HypertriglyceridemiaAnemi [facility] ess/intervention Patient Health Screened For Future Fall Center</td RiskAssess/intervention ><td>09/07 Patient Screened For Futu re /2019</td> Fall RiskAssess/intervent ion <td>< Patient Screened For Futu re nt Fall RiskAssess/intervent ion ID="encoun Patient Screened For Futu re terDiagnos Fall RiskAssess/intervent ion isID6-0">A Patient Screened For Futu re nemia</con Fall tent>, RiskLumbagoLumbagoLumbago Lumb <content agoBackache ID="encoun LowerLumbagoHypertension terDiagnos (systemic)Diabetes isID6-1">E MellitusHypertension ssential (systemic)Diabetes Hypertrigl MellitusHypertension yceridemia (systemic)Diabetes </content> MellitusHypertension , <content (systemic)Diabetes ID="encoun MellitusDiabetes Mellitus terDiagnos isID6-2">D iabetes Mellitus</ content>, <content ID="encoun terDiagnos isID6-3">L umbago</co ntent>, <content ID="encoun terDiagnos isID6-4">O besity</co ntent>, <content ID="encoun terDiagnos isID6-5">A ssess/inte rvention Patient Screened For Future Fall Risk</cont ent>, <content ID="encoun terDiagnos isID6-6">H ypertensio n (systemic) </content> </td> Obesity Essential Hypertriglyceridemia Anemia Obesity Essential Hypertriglyceridemia Anemia Obesity Essential Hypertriglyceridemia Anemia Obesity Essential Hypertriglyceridemia Anemia Obesity Mild Cognitive Impairment Essential Hypertriglyceridemia Anemia Assess/intervention Patient Screened For Future Fall Risk Assess/intervention Patient Screened For Future Fall Risk Assess/intervention Patient Screened For Future Fall Risk Assess/intervention Patient Screened For Future Fall Risk Assess/intervention Patient Screened For Future Fall Risk Lumbago Lumbago Lumbago Lumbago Backache Lower Lumbago Hypertension (systemic) Diabetes Mellitus Hypertension (systemic) Diabetes Mellitus Hypertension (systemic) Diabetes Mellitus Hypertension (systemic) Diabetes Mellitus Diabetes Mellitus Outpatient<td Attender: Wu 09/05/2019 [place] ID="encounterTypeDescriptionID7">*OUTREACH*</td><td>[facility] 09:35:00 AM ([facility]</td><td>[facility] E DT [facility]</td><td>09/05/2019</td><td></td> [employer] Center 020 Health 11:59:00 PM Center) EDT Outpatient<td ID="encounterTypeDescriptionID8">OFFICE Attender: Wu 08/31/2019 [facility] VISIT</td><td>Yvonne Bradford DPM</td><td>[facility] 11:30:00 AM ([facility]</td><td>08/31/2019</td><td></td> [place] Health EDT - [facility] 08/31/2019 Health 11:04:51 AM Center) EDT Outpatient<td ID="encounterTypeDescriptionID9">PATIENT Attender: Wu 08/30/2019 [facility] ADVOCACY</td><td>[facility]</td><td>[facility] 02:00:00 PM ([facility]</td><td>08/30/2019</td><td></td> [facility] EDT - [facility] 08/30/2019 Health 11:59:00 PM Center) EDT Outpatient<td ID="[id number]">OFFICE Attender: Wu 08/30/2019 A [facility] VISIT</td><td>BILLIE DION FNP</td><td>[facility] 10:30:00 AM r ([facility]</td><td>08/30/2019</td><td><content [facility] EDT - t Neighborhood ID="[id number]">Diabetes Mellitus</content>, [facility] Center 08/30/2019 Health <content ID="[id number]">Arthralgia - Ankle 11:48:38 AM r Center) / Foot</content></td> EDT a l g i a - A n k l e / F o o t A r t h r a l g i a - A n k l e / F o o t A r t h r a l g i a - A n k l e / F o o t A r t h r a l g i a - A n k l e / F o o t A r t h r a l g i a - A n k l e / F o o t A r t h r a l g i a - A n k l e / F o o t A r t h r a l g i a - A n k l e / F o o t A r t h r a l g i a - A n k l e / F o o t A r t h r a l g i a - A n k l e / F o o t D i a b e t e s M e l l i t u s D i a b e t e s M e l l i t u s D i a b e t e s M e l l i t u s D i a b e t e s M e l l i t u s D i a b e t e s M e l l i t u s D i a b e t e s M e l l i t u s D i a b e t e s M e l l i t u s D i a b e t e s M e l l i t u s D i a b e t e s M e l l i t u s Arthralgia - Ankle / Foot Arthralgia - Ankle / Foot Arthralgia - Ankle / Foot Arthralgia - Ankle / Foot Arthralgia - Ankle / Foot Arthralgia - Ankle / Foot Arthralgia - Ankle / Foot Arthralgia - Ankle / Foot Arthralgia - Ankle / Foot Diabetes Mellitus Diabetes Mellitus Diabetes Mellitus Diabetes Mellitus Diabetes Mellitus Diabetes Mellitus Diabetes Mellitus Diabetes Mellitus Diabetes Mellitus Outpatient<td Attender: Wu 08/18/2019 CHAMBERINO ID="[id number]">[facility] 10:10 :00 AM ([facility]</td><td>[facility] EDT - [facility]</td><td>[facility] 2019 Health Center</td><td>08/18/2019</td><td></td> 11:59:0 0 PM Center) EDT Outpatient<td Attender: Wu 08/17/2019 CHAMBERINO ID="[id number]">*Chart [facility] 03:30: 00 PM (Annia King Update*</td><[facility] [employer]</td><td>[facility] [employer] Center 08/17/2019 Health Center</td><td>08/17/2019</td><td></td> 11:59:0 0 PM Center) EDT Outpatient<td Attender: Wu 08/17/2019 RADHA ID="[id number]">[facility]IENT [facility] 10:06 :00 AM ([facility] ADVOCACY</td><td[facility]</td><td>[facility] 2019 [facility]</td><td>08/17/2019</td><td></td> 11:59:0 0 PM Center) EDT OutpatientOFFICE/OUTPATIENT VISIT, EST Attender: Mental 08/16/19 20 [facility]49:00 [facility] 08/16/2019 Medical 10:49:00 AM Center) EDT Outpatient<td Attender: Wu 08/10/2019 RADHA ID="[id number]">*[facility] 04:25:00 PM ([facility] Show*</td><td>[facility] [place] [facility]</td><td>[facility] 08/10/2019 [facility] Center</td><td>08/10/2019</td><td></td> 11:59:0 0 PM Center) EDT Outpatient<td Attender: Wu 07/27/2019 RADHA ID="[id number]">[facility]IENT [facility] 12:35 :00 PM ([facility] ADVOCACY</td><td>[facility]td><td>[facility] 2019 Health Center</td><td>07/27/2019</td><td></td> 11:59:0 0 PM Center) EDT Outpatient<td Attender: Wu 07/27/2019 CHAMBERINO ID="[id number]">[facility] 11:30: 00 AM ([facility] VISIT</td><td>[facility] EDT - [facility]</td><td>[facility] 07/27/2019 [facility] [place]</td><td>07/27/2019</td><td></td> 11:10:1 5 AM Center) EDT Outpatient<td Attender: Wu 07/27/2019 D CHAMBERINO ID="[id number]">[facility] 10[facility] AM e ([facility] /td><td>[facility]</td><td>[facility] EDT - r [facility] [employer] Center 07/27/2019 [facility]</td><td>07/27/2019</td><td><content 12:0 5:27 PM a [place]) ID="[id number]">Diabetes EDT t Mellitus</content>, <content o ID="[id number]">Hypertension p (systemic)</content>, <content h ID="[id number]">Dermatophyto y sis</content></td> t o s i s D e r m a t o p h y t o s i s D e r m a t o p h y t o s i s D e r m a t o p h y t o s i s D e r m a t o p h y t o s i s D e r m a t o p h y t o s i s D e r m a t o p h y t o s i s D e r m a t o p h y t o s i s D e r m a t o p h y t o s i s D e r m a t o p h y t o s i s D e r m a t o p h y t o s i s D e r m a t o p h y t o s i s D e r m a t o p h y t o s i s D e r m a t o p h y t o s i s D e r m a t o p h y t o s i s D e r m a t o p h y t o s i s H y p e r t e n s i o n ( s y s t e m i c ) D i a b e t e s M e l l i t u s H y p e r t e n s i o n ( s y s t e m i c ) D i a b e t e s M e l l i t u s H y p e r t e n s i o n ( s y s t e m i c ) D i a b e t e s M e l l i t u s H y p e r t e n s i o n ( s y s t e m i c ) D i a b e t e s M e l l i t u s H y p e r t e n s i o n ( s y s t e m i c ) D i a b e t e s M e l l i t u s H y p e r t e n s i o n ( s y s t e m i c ) D i a b e t e s M e l l i t u s H y p e r t e n s i o n ( s y s t e m i c ) D i a b e t e s M e l l i t u s H y p e r t e n s i o n ( s y s t e m i c ) D i a b e t e s M e l l i t u s H y p e r t e n s i o n ( s y s t e m i c ) D i a b e t e s M e l l i t u s H y p e r t e n s i o n ( s y s t e m i c ) D i a b e t e s M e l l i t u s H y p e r t e n s i o n ( s y s t e m i c ) D i a b e t e s M e l l i t u s H y p e r t e n s i o n ( s y s t e m i c ) D i a b e t e s M e l l i t u s H y p e r t e n s i o n ( s y s t e m i c ) D i a b e t e s M e l l i t u s H y p e r t e n s i o n ( s y s t e m i c ) D i a b e t e s M e l l i t u s H y p e r t e n s i o n ( s y s t e m i c ) D i a b e t e s M e l l i t u s H y p e r t e n s i o n ( s y s t e m i c ) D i a b e t e s M e l l i t u s Dermatophytosis Dermatophytosis Dermatophytosis Dermatophytosis Dermatophytosis Dermatophytosis Dermatophytosis Dermatophytosis Dermatophytosis Dermatophytosis Dermatophytosis Dermatophytosis Dermatophytosis Dermatophytosis Dermatophytosis Dermatophytosis Hypertension (systemic) Diabetes Mellitus Hypertension (systemic) Diabetes Mellitus Hypertension (systemic) Diabetes Mellitus Hypertension (systemic) Diabetes Mellitus Hypertension (systemic) Diabetes Mellitus Hypertension (systemic) Diabetes Mellitus Hypertension (systemic) Diabetes Mellitus Hypertension (systemic) Diabetes Mellitus Hypertension (systemic) Diabetes Mellitus Hypertension (systemic) Diabetes Mellitus Hypertension (systemic) Diabetes Mellitus Hypertension (systemic) Diabetes Mellitus Hypertension (systemic) Diabetes Mellitus Hypertension (systemic) Diabetes Mellitus Hypertension (systemic) Diabetes Mellitus Hypertension (systemic) Diabetes Mellitus Outpatient<td Attender: Wu 07/26/2019 CHAMBERINO ID="[id number]">*OUTREACH*</td><td>[facility] 11:01:00 AM ([facility]</td><td>[facility] E DT - [facility]</td><td>07/26/2019</td><td></td> [facility] [address] [place] [address] 11:59:00 PM Center) EDT Outpatient<td ID="[id number]">Regular Attender : Wu 07/25/2019 RADHA Sonogram</td><td>DANA WANG MD</td><td>[facility] 11:00:00 AM ([facility]</td><td>07/25/2019</td><td></td> FELIPE BAIRES [facility] EDT [facility] 07/25/2019 Health 12:57:04 PM Center) EDT Attender: Mental 07/18/2019 [facility] 06:19:00 PM ([facility] EDT [facility] 07/18/2019 Medical 06:19:00 PM Center) EDT Outpatient<td ID="[id number]">OFFICE Attender: Wu 06/29/2019 CHAMBERINO VISIT</td><td>Yvonne Pagem DP</td><td>[facility] 02:30:00 PM ([facility]</td><td>06/29/2019</td><td></td> [place] [facility] EDT [facility] 06/29/2019 Health 01:01:40 PM Center) EDT Outpatient<td ID="[id number]">OFFICE Attender: Wu 06/29/2019 L CHAMBERINO VISIT</td><td>BILLIE [facility] [employer]</td><td>[facility] 11:30:00 AM u ([facility]</td><td>06/29/2019</td><td><[facility] - m Neighborhood ID="[id number]">Lumbago</content></td> [employer] Cente r 06/29/2019 b Health 01:43:54 PM [facility]) EDT g o L u m b a g o L u m b a g o L u m b a g o L u m b a g o L u m b a g o L u m b a g o L u m b a g o L u m b a g o L u m b a g o L u m b a g o L u m b a g o L u m b a g o L u m b a g o L u m b a g o L u m b a g o L u m b a g o L u m b a g o L u m b a g o Lumbago Lumbago Lumbago Lumbago Lumbago Lumbago Lumbago Lumbago Lumbago Lumbago Lumbago Lumbago Lumbago Lumbago Lumbago Lumbago Lumbago Lumbago Lumbago Outpatient<td Attender: Wu 06/26/2019 CHAMBERINO ID="[id number]">[facility] 12:29 :00 PM (Annia King [facility]</td><td>[facility] EDT [facility]</td><td>[facility] 2019 Health Center</td><td>06/26/2019</td><td></td> 11:59:0 0 PM Center) EDT Outpatient<td Attender: Wu 06/26/2019 E CHAMBERINO ID="[id number]">WALKINS< [facility] 12:0 0:00 PM d (Annia King /td><td>[facility]</td><td>[facility] EDT [facility] MECH[employer]ICAL DESIGN [employer] Center 06/26/2019 Health Center</td><td>06/26/2019</td><td><content 02:0 7:36 PM a Center) ID="[id number]">Lumbago with EDT L Sciatica</content>, <content u ID="[id number]">Edema</renetta m nt></td> b a g o w i t h S c i a t i c a E d e m a L u m b a g o w i t h S c i a t i c a E d e m a L u m b a g o w i t h S c i a t i c a E d e m a L u m b a g o w i t h S c i a t i c a E d e m a L u m b a g o w i t h S c i a t i c a E d e m a L u m b a g o w i t h S c i a t i c a E d e m a L u m b a g o w i t h S c i a t i c a E d e m a L u m b a g o w i t h S c i a t i c a E d e m a L u m b a g o w i t h S c i a t i c a E d e m a L u m b a g o w i t h S c i a t i c a E d e m a L u m b a g o w i t h S c i a t i c a E d e m a L u m b a g o w i t h S c i a t i c a E d e m a L u m b a g o w i t h S c i a t i c a E d e m a L u m b a g o w i t h S c i a t i c a E d e m a L u m b a g o w i t h S c i a t i c a E d e m a L u m b a g o w i t h S c i a t i c a E d e m a L u m b a g o w i t h S c i a t i c a E d e m a L u m b a g o w i t h S c i a t i c a E d e m a L u m b a g o w i t h S c i a t i c a E d e m a L u m b a g o w i t h S c i a t i c a E d e m a L u m b a g o w i t h S c i a t i c a E d e m a L u m b a g o w i t h S c i a t i c a Edema Lumbago with Sciatica Edema Lumbago with Sciatica Edema Lumbago with Sciatica Edema Lumbago with Sciatica Edema Lumbago with Sciatica Edema Lumbago with Sciatica Edema Lumbago with Sciatica Edema Lumbago with Sciatica Edema Lumbago with Sciatica Edema Lumbago with Sciatica Edema Lumbago with Sciatica Edema Lumbago with Sciatica Edema Lumbago with Sciatica Edema Lumbago with Sciatica Edema Lumbago with Sciatica Edema Lumbago with Sciatica Edema Lumbago with Sciatica Edema Lumbago with Sciatica Edema Lumbago with Sciatica Edema Lumbago with Sciatica Edema Lumbago with Sciatica Edema Lumbago with Sciatica OutpatientOFFICE/OUTPATIENT Attender: Adolfo Russell 06/20/2019 NEXTGEN VISIT, [facility] 01[facility]17:00 [facility] Twyla Portillo 06/20/2019 Medical 01:17:00 PM Center) EDT Outpatient<td Attender: Yvonne Washburn 06/08/2019 ASHLI ZHOU ID="encounterTypeDescription [place] [facility] 02:42:00 PM (Bruin ID24">*No Health EST - Neighborhood Show*</td><td>[facility] 06/08/2019 Health DPM</td><td>Wu 11:59:00 PM [facility]) [facility] EST [place]</td><td>06/08/2019</t d><td></td> Outpatient<td Attender: Melissa Washburn 06/06/2019 NADEGE MCKEON ID="encounterTypeDescription [facility] 05:00:00 PM (Bruin ID25">PATIENT Health EST - [facility] d ADVOCACY</td><td>[facility] 06/06/2019 Alfredo chance Mcgill</td><td>Wu 11:59:00 PM [place]) [facility] EST [place]</td><td>06/06/2019</t d><td></td> Outpatient<td Attender: Melissa Washburn 06/05/2019 NADEGE MCKEON ID="encounterTypeDescription [facility] 03:59:00 PM (Bruin ID26">[facility]td><[facility] Alfredo chance Mcgill</td><td>Wu 11:59:00 PM [place]) [facility]</td><td>06/05/2019</t d><td></td> Outpatient<td Attender: BILLIE Wu 06/05/2019 Diabvini CORNELIUSPawan ID="encounterTypeDescription [facility] 10:45:00 AM s (Bruin ID27">[place]ALK[place]</td><td>[facility] Mellitu [facility]</td><td>[facility] 06/05/2019 sDiabet [facility] 12:46:43 PM es Center) Center</td><td>06/05/2019</t EST Mellitu d><td><content sDiabet ID="[id number] es ">Diabetes Mellitu Mellitus</content></td> sDiabet es Mellitu sDiabet es Mellitu sDiabet es Mellitu sDiabet es Mellitu sDiabet es Mellitu sDiabet es Mellitu sDiabet es Mellitu sDiabet es Mellitu sDiabet es Mellitu sDiabet es Mellitu sDiabet es Mellitu sDiabet es Mellitu sDiabet es Mellitu sDiabet es Mellitu sDiabet es Mellitu sDiabet es Mellitu sDiabet es Mellitu sDiabet es Mellitu sDiabet es Mellitu sDiabet es Mellitu s Diabetes Mellitus Diabetes Mellitus Diabetes Mellitus Diabetes Mellitus Diabetes Mellitus Diabetes Mellitus Diabetes Mellitus Diabetes Mellitus Diabetes Mellitus Diabetes Mellitus Diabetes Mellitus Diabetes Mellitus Diabetes Mellitus Diabetes Mellitus Diabetes Mellitus Diabetes Mellitus Diabetes Mellitus Diabetes Mellitus Diabetes Mellitus Diabetes Mellitus Diabetes Mellitus Diabetes Mellitus Diabetes Mellitus Outpatient<td Attender: Wu 05/27/2019 RADHA ID="[id number]">*No [facility] 01:44:00 PM (Bruin Show*</td><td[facility]</td><td>[facility] Center 05/27/2019 Health Center</td><td>05/27/2019</td><td></td> 11:59:0 0 PM Center) EST Individual Psychotherapy (30 Min) Attender: Mental 05/23/2019 [facility] 05:12:00 PM ([facility] 05/23/2019 Medical 05:12:00 PM Center) EST OutpatientOFFICE/OUTPATIENT VISIT, EST Attender: Mental 05/23/19 20 NEXTGEN [facility] 01:[facility] PM ([facility] nder: 05/23/2019 Medical Isaiah 01:40:00 PM Center) [place] EST Outpatient<td Attender: Wu 05/20/2019 P RADHA ID="[id number]">[facility] 12:00: 00 PM o (Bruin S</td><td>[facility] MD</td><td>[facility] Center 05/20/2019 y Health Center</td><td>05/20/2019</td><td><renetta 02:20: 54 PM n Center) nt EST e ID="[id number]">Assess/int u erv Future Fall Risk Document No Fall in r Past Year</content>, <content o ID="[id number]">Coronary p Artery Disease</content>, <content a ID="[id number]">Diabetes t Mellitus</content>, <content h ID="[id number]">Depression y </content>, <content O ID="[id number]">Essential b Hypertension</content>, <content e ID="[id number]">Hyperchole s sterolemia</content>, <content i ID="[id number]">Obesity</c t ontent>, <content y ID="[id number]">Epilepsy</ D content>, <content e ID="ycjduhhflHkwdwhxqjSE90-2">Polyneurop p athy</content></td> r e s s i o n A s s e s s / i n t e r v F u t u r e F a l l R i s k D o c u m e n t N o F a l l i n P a s t Y e a r P o l y n e u r o p a t h y O b e s i t y D e p r e s s i o n A s s e s s / i n t e r v F u t u r e F a l l R i s k D o c u m e n t N o F a l l i n P a s t Y e a r P o l y n e u r o p a t h y O b e s i t y D e p r e s s i o n A s s e s s / i n t e r v F u t u r e F a l l R i s k D o c u m e n t N o F a l l i n P a s t Y e a r P o l y n e u r o p a t h y O b e s i t y D e p r e s s i o n A s s e s s / i n t e r v F u t u r e F a l l R i s k D o c u m e n t N o F a l l i n P a s t Y e a r P o l y n e u r o p a t h y O b e s i t y D e p r e s s i o n A s s e s s / i n t e r v F u t u r e F a l l R i s k D o c u m e n t N o F a l l i n P a s t Y e a r P o l y n e u r o p a t h y O b e s i t y D e p r e s s i o n A s s e s s / i n t e r v F u t u r e F a l l R i s k D o c u m e n t N o F a l l i n P a s t Y e a r P o l y n e u r o p a t h y O b e s i t y D e p r e s s i o n A s s e s s / i n t e r v F u t u r e F a l l R i s k D o c u m e n t N o F a l l i n P a s t Y e a r P o l y n e u r o p a t h y O b e s i t y D e p r e s s i o n A s s e s s / i n t e r v F u t u r e F a l l R i s k D o c u m e n t N o F a l l i n P a s t Y e a r P o l y n e u r o p a t h y O b e s i t y D e p r e s s i o n A s s e s s / i n t e r v F u t u r e F a l l R i s k D o c u m e n t N o F a l l i n P a s t Y e a r P o l y n e u r o p a t h y O b e s i t y D e p r e s s i o n A s s e s s / i n t e r v F u t u r e F a l l R i s k D o c u m e n t N o F a l l i n P a s t Y e a r P o l y n e u r o p a t h y O b e s i t y D e p r e s s i o n A s s e s s / i n t e r v F u t u r e F a l l R i s k D o c u m e n t N o F a l l i n P a s t Y e a r P o l y n e u r o p a t h y O b e s i t y D e p r e s s i o n A s s e s s / i n t e r v F u t u r e F a l l R i s k D o c u m e n t N o F a l l i n P a s t Y e a r P o l y n e u r o p a t h y O b e s i t y D e p r e s s i o n A s s e s s / i n t e r v F u t u r e F a l l R i s k D o c u m e n t N o F a l l i n P a s t Y e a r P o l y n e u r o p a t h y O b e s i t y D e p r e s s i o n A s s e s s / i n t e r v F u t u r e F a l l R i s k D o c u m e n t N o F a l l i n P a s t Y e a r P o l y n e u r o p a t h y O b e s i t y D e p r e s s i o n A s s e s s / i n t e r v F u t u r e F a l l R i s k D o c u m e n t N o F a l l i n P a s t Y e a r P o l y n e u r o p a t h y O b e s i t y D e p r e s s i o n A s s e s s / i n t e r v F u t u r e F a l l R i s k D o c u m e n t N o F a l l i n P a s t Y e a r P o l y n e u r o p a t h y O b e s i t y D e p r e s s i o n A s s e s s / i n t e r v F u t u r e F a l l R i s k D o c u m e n t N o F a l l i n P a s t Y e a r P o l y n e u r o p a t h y O b e s i t y D e p r e s s i o n A s s e s s / i n t e r v F u t u r e F a l l R i s k D o c u m e n t N o F a l l i n P a s t Y e a r P o l y n e u r o p a t h y O b e s i t y D e p r e s s i o n A s s e s s / i n t e r v F u t u r e F a l l R i s k D o c u m e n t N o F a l l i n P a s t Y e a r P o l y n e u r o p a t h y O b e s i t y D e p r e s s i o n A s s e s s / i n t e r v F u t u r e F a l l R i s k D o c u m e n t N o F a l l i n P a s t Y e a r P o l y n e u r o p a t h y O b e s i t y D e p r e s s i o n A s s e s s / i n t e r v F u t u r e F a l l R i s k D o c u m e n t N o F a l l i n P a s t Y e a r P o l y n e u r o p a t h y O b e s i t y D e p r e s s i o n A s s e s s / i n t e r v F u t u r e F a l l R i s k D o c u m e n t N o F a l l i n P a s t Y e a r P o l y n e u r o p a t h y O b e s i t y D e p r e s s i o n A s s e s s / i n t e r v F u t u r e F a l l R i s k D o c u m e n t N o F a l l i n P a s t Y e a r P o l y n e u r o p a t h y O b e s i t y D e p r e s s i o n A s s e s s / i n t e r v F u t u r e F a l l R i s k D o c u m e n t N o F a l l i n P a s t Y e a r H y p e r c h o l e s t e r o l e m i a H y p e r c h o l e s t e r o l e m i a H y p e r c h o l e s t e r o l e m i a H y p e r c h o l e s t e r o l e m i a H y p e r c h o l e s t e r o l e m i a H y p e r c h o l e s t e r o l e m i a H y p e r c h o l e s t e r o l e m i a H y p e r c h o l e s t e r o l e m i a H y p e r c h o l e s t e r o l e m i a H y p e r c h o l e s t e r o l e m i a H y p e r c h o l e s t e r o l e m i a H y p e r c h o l e s t e r o l e m i a H y p e r c h o l e s t e r o l e m i a H y p e r c h o l e s t e r o l e m i a H y p e r c h o l e s t e r o l e m i a H y p e r c h o l e s t e r o l e m i a H y p e r c h o l e s t e r o l e m i a H y p e r c h o l e s t e r o l e m i a H y p e r c h o l e s t e r o l e m i a H y p e r c h o l e s t e r o l e m i a H y p e r c h o l e s t e r o l e m i a H y p e r c h o l e s t e r o l e m i a H y p e r c h o l e s t e r o l e m i a H y p e r c h o l e s t e r o l e m i a E p i l e p s y E s s e n t i a l H y p e r t e n s i o n D i a b e t e s M e l l i t u s C o r o n a r y A r t e r y D i s e a s e E p i l e p s y E s s e n t i a l H y p e r t e n s i o n D i a b e t e s M e l l i t u s C o r o n a r y A r t e r y D i s e a s e E p i l e p s y E s s e n t i a l H y p e r t e n s i o n D i a b e t e s M e l l i t u s C o r o n a r y A r t e r y D i s e a s e E p i l e p s y E s s e n t i a l H y p e r t e n s i o n D i a b e t e s M e l l i t u s C o r o n a r y A r t e r y D i s e a s e E p i l e p s y E s s e n t i a l H y p e r t e n s i o n D i a b e t e s M e l l i t u s C o r o n a r y A r t e r y D i s e a s e E p i l e p s y E s s e n t i a l H y p e r t e n s i o n D i a b e t e s M e l l i t u s C o r o n a r y A r t e r y D i s e a s e E p i l e p s y E s s e n t i a l H y p e r t e n s i o n D i a b e t e s M e l l i t u s C o r o n a r y A r t e r y D i s e a s e E p i l e p s y E s s e n t i a l H y p e r t e n s i o n D i a b e t e s M e l l i t u s C o r o n a r y A r t e r y D i s e a s e E p i l e p s y E s s e n t i a l H y p e r t e n s i o n D i a b e t e s M e l l i t u s C o r o n a r y A r t e r y D i s e a s e E p i l e p s y E s s e n t i a l H y p e r t e n s i o n D i a b e t e s M e l l i t u s C o r o n a r y A r t e r y D i s e a s e E p i l e p s y E s s e n t i a l H y p e r t e n s i o n D i a b e t e s M e l l i t u s C o r o n a r y A r t e r y D i s e a s e E p i l e p s y E s s e n t i a l H y p e r t e n s i o n D i a b e t e s M e l l i t u s C o r o n a r y A r t e r y D i s e a s e E p i l e p s y E s s e n t i a l H y p e r t e n s i o n D i a b e t e s M e l l i t u s C o r o n a r y A r t e r y D i s e a s e E p i l e p s y E s s e n t i a l H y p e r t e n s i o n D i a b e t e s M e l l i t u s C o r o n a r y A r t e r y D i s e a s e E p i l e p s y E s s e n t i a l H y p e r t e n s i o n D i a b e t e s M e l l i t u s C o r o n a r y A r t e r y D i s e a s e E p i l e p s y E s s e n t i a l H y p e r t e n s i o n D i a b e t e s M e l l i t u s C o r o n a r y A r t e r y D i s e a s e E p i l e p s y E s s e n t i a l H y p e r t e n s i o n D i a b e t e s M e l l i t u s C o r o n a r y A r t e r y D i s e a s e E p i l e p s y E s s e n t i a l H y p e r t e n s i o n D i a b e t e s M e l l i t u s C o r o n a r y A r t e r y D i s e a s e E p i l e p s y E s s e n t i a l H y p e r t e n s i o n D i a b e t e s M e l l i t u s C o r o n a r y A r t e r y D i s e a s e E p i l e p s y E s s e n t i a l H y p e r t e n s i o n D i a b e t e s M e l l i t u s C o r o n a r y A r t e r y D i s e a s e E p i l e p s y E s s e n t i a l H y p e r t e n s i o n D i a b e t e s M e l l i t u s C o r o n a r y A r t e r y D i s e a s e E p i l e p s y E s s e n t i a l H y p e r t e n s i o n D i a b e t e s M e l l i t u s C o r o n a r y A r t e r y D i s e a s e E p i l e p s y E s s e n t i a l H y p e r t e n s i o n D i a b e t e s M e l l i t u s C o r o n a r y A r t e r y D i s e a s e E p i l e p s y E s s e n t i a l H y p e r t e n s i o n D i a b e t e s M e l l i t u s C o r o n a r y A r t e r y D i s e a s e Polyneuropathy Obesity Depression Assess/interv Future Fall Risk Document No Fall in Past Year Polyneuropathy Obesity Depression Assess/interv Future Fall Risk Document No Fall in Past Year Polyneuropathy Obesity Depression Assess/interv Future Fall Risk Document No Fall in Past Year Polyneuropathy Obesity Depression Assess/interv Future Fall Risk Document No Fall in Past Year Polyneuropathy Obesity Depression Assess/interv Future Fall Risk Document No Fall in Past Year Polyneuropathy Obesity Depression Assess/interv Future Fall Risk Document No Fall in Past Year Polyneuropathy Obesity Depression Assess/interv Future Fall Risk Document No Fall in Past Year Polyneuropathy Obesity Depression Assess/interv Future Fall Risk Document No Fall in Past Year Polyneuropathy Obesity Depression Assess/interv Future Fall Risk Document No Fall in Past Year Polyneuropathy Obesity Depression Assess/interv Future Fall Risk Document No Fall in Past Year Polyneuropathy Obesity Depression Assess/interv Future Fall Risk Document No Fall in Past Year Polyneuropathy Obesity Depression Assess/interv Future Fall Risk Document No Fall in Past Year Polyneuropathy Obesity Depression Assess/interv Future Fall Risk Document No Fall in Past Year Polyneuropathy Obesity Depression Assess/interv Future Fall Risk Document No Fall in Past Year Polyneuropathy Obesity Depression Assess/interv Future Fall Risk Document No Fall in Past Year Polyneuropathy Obesity Depression Assess/interv Future Fall Risk Document No Fall in Past Year Polyneuropathy Obesity Depression Assess/interv Future Fall Risk Document No Fall in Past Year Polyneuropathy Obesity Depression Assess/interv Future Fall Risk Document No Fall in Past Year Polyneuropathy Obesity Depression Assess/interv Future Fall Risk Document No Fall in Past Year Polyneuropathy Obesity Depression Assess/interv Future Fall Risk Document No Fall in Past Year Polyneuropathy Obesity Depression Assess/interv Future Fall Risk Document No Fall in Past Year Polyneuropathy Obesity Depression Assess/interv Future Fall Risk Document No Fall in Past Year Polyneuropathy Obesity Depression Assess/interv Future Fall Risk Document No Fall in Past Year Polyneuropathy Obesity Depression Assess/interv Future Fall Risk Document No Fall in Past Year Hypercholesterolemia Hypercholesterolemia Hypercholesterolemia Hypercholesterolemia Hypercholesterolemia Hypercholesterolemia Hypercholesterolemia Hypercholesterolemia Hypercholesterolemia Hypercholesterolemia Hypercholesterolemia Hypercholesterolemia Hypercholesterolemia Hypercholesterolemia Hypercholesterolemia Hypercholesterolemia Hypercholesterolemia Hypercholesterolemia Hypercholesterolemia Hypercholesterolemia Hypercholesterolemia Hypercholesterolemia Hypercholesterolemia Hypercholesterolemia Epilepsy Essential Hypertension Diabetes Mellitus Coronary Artery Disease Epilepsy Essential Hypertension Diabetes Mellitus Coronary Artery Disease Epilepsy Essential Hypertension Diabetes Mellitus Coronary Artery Disease Epilepsy Essential Hypertension Diabetes Mellitus Coronary Artery Disease Epilepsy Essential Hypertension Diabetes Mellitus Coronary Artery Disease Epilepsy Essential Hypertension Diabetes Mellitus Coronary Artery Disease Epilepsy Essential Hypertension Diabetes Mellitus Coronary Artery Disease Epilepsy Essential Hypertension Diabetes Mellitus Coronary Artery Disease Epilepsy Essential Hypertension Diabetes Mellitus Coronary Artery Disease Epilepsy Essential Hypertension Diabetes Mellitus Coronary Artery Disease Epilepsy Essential Hypertension Diabetes Mellitus Coronary Artery Disease Epilepsy Essential Hypertension Diabetes Mellitus Coronary Artery Disease Epilepsy Essential Hypertension Diabetes Mellitus Coronary Artery Disease Epilepsy Essential Hypertension Diabetes Mellitus Coronary Artery Disease Epilepsy Essential Hypertension Diabetes Mellitus Coronary Artery Disease Epilepsy Essential Hypertension Diabetes Mellitus Coronary Artery Disease Epilepsy Essential Hypertension Diabetes Mellitus Coronary Artery Disease Epilepsy Essential Hypertension Diabetes Mellitus Coronary Artery Disease Epilepsy Essential Hypertension Diabetes Mellitus Coronary Artery Disease Epilepsy Essential Hypertension Diabetes Mellitus Coronary Artery Disease Epilepsy Essential Hypertension Diabetes Mellitus Coronary Artery Disease Epilepsy Essential Hypertension Diabetes Mellitus Coronary Artery Disease Epilepsy Essential Hypertension Diabetes Mellitus Coronary Artery Disease Epilepsy Essential Hypertension Diabetes Mellitus Coronary Artery Disease Outpatient<td Attender: Wu 05/02/2019 Diabetes [facility]BERINO [id number]*Phone*</td><td>BILLIE WISE Person [facility] 03:55:00 PM MellitusDiabetes [facility]</td><td>[facility] EST MellitusDiabetes [facility]</td><td>05/02/2019</td><td><content [employer] Center 05/02/2019 MellitusDiabetes Health ID="[id number]">Diabetes 11:59:00 PM MellitusDiabetes Center) Mellitus</content></td> EST MellitusDiab etes MellitusDiabetes MellitusDiabetes MellitusDiabetes MellitusDiabetes MellitusDiabetes MellitusDiabetes MellitusDiabetes MellitusDiabetes MellitusDiabetes MellitusDiabetes MellitusDiabetes MellitusDiabetes MellitusDiabetes MellitusDiabetes MellitusDiabetes MellitusDiabetes MellitusDiabetes MellitusDiabetes MellitusDiabetes Mellitus Diabetes Mellitus Diabetes Mellitus Diabetes Mellitus Diabetes Mellitus Diabetes Mellitus Diabetes Mellitus Diabetes Mellitus Diabetes Mellitus Diabetes Mellitus Diabetes Mellitus Diabetes Mellitus Diabetes Mellitus Diabetes Mellitus Diabetes Mellitus Diabetes Mellitus Diabetes Mellitus Diabetes Mellitus Diabetes Mellitus Diabetes Mellitus Diabetes Mellitus Diabetes Mellitus Diabetes Mellitus Diabetes Mellitus Diabetes Mellitus Diabetes Mellitus Individual Attender: Mental 04/25/2019 NEXTGEN Psychotherapy [facility] 05:33:00 PM ([facility] (30 Min) [facility] 04/25/2019 Medical 05:33:00 PM Center) EST OutpatientOFFIC Attender: Mental 04/25/2019 NEXTGEN E/OUTPATIENT [facility] 11:56:00 AM ( VISIT, EST [facility] r: Isaiah 04/25/2019 Medical D[place] 11:56:00 AM Center) EST Outpatient Attender: H 04/25/2019 [facility] 10:36:00 AM Medical Delphine EST Center : PADMINI Catalan r: SHRAVAN MENDOSA Attender: Mental 04/25/2019 N[facility] 10:36:00 AM [facility] 04/25/2019 Medical 10:36:00 AM Center) EST 04/25/2019 [facility] 12:00:00 AM Medical EST Center Individual Attender: Mental [facility] 04:58:00 PM ([facility] (30 Min) [facility] 03/28/2019 Medical 04:58:00 PM Center) EST OutpatientOFFIC Attender: Mental 03/28/2019 NEXTGEN E/OUTPATIENT [facility] 11:10:00 AM ([facility] VISIT, [facility] ER r: Isaiah 03/28/2019 Medical Darer 11:10:00 AM Center) EST Outpatient<td Attender: Wu 03/27/2019 RADHA ID="[facility]Ty [facility] 09[facility] AM (Annia locke peDescriptionID [facility] rhood 31">*OUTREACH*< Center 03/27/2019 Health /td><td>BILLIE 11:59:00 PM Center) [facility]</td><td>[facility]</td><td> 03/27/2019</td> <td></td> Outpatient<td Attender: Wu 03/24/2019 RADHA ID="encounterTy [facility] 03:16:00 PM (Annia locke peDescriptionID GUY BAIRES [facility] moon 32">*OUTREACH*< Center 03/24/2019 Health /td><td>KORY 11:59:00 PM Center) GUY IRVAS MD</td><td>[facility]</td><td> 03/24/2019</td> <td></td> Outpatient<td Attender: Wu 03/23/2019 RADHA [facility] 12[facility] PM (Hugh KennedyescriptionID Health EST - Neighborh ood 33">PATIENT Center 03/23/2019 Health ADVOCACY</td><t 11:59:00 PM Center) d>Melissa EST Mcgill</td><td >[facility]</td><td> 03/23/2019</td> <td></td> Outpatient<td Attender: uW 03/20/2019 Overanxious RADHA ID="encounterTy [facility] 11:30:00 AM DisorderUrinary (Mo unt Fernando peDescriptionID [facility] Health EST - RetentionEpilepsy and Neighborhood 34">WALKINS</td Center 03/20/2019 Recurrent Health ><td>[facility] 12:20:12 PM SeizuresOveranxious Cent er) [facility] EST DisorderUrinary [employer]</td><td>Yon RetentionEpilepsy an d [facility] Recurrent Health SeizuresOveranxious Center</td><td> DisorderUrinary 03/20/2019</td> RetentionEpilepsy an d <td><content Recurrent ID="encounterDi SeizuresOveranxious [id number]"> DisorderUrinary Diabetes RetentionEpilepsy and Mellitus</renetta Recurrent nt>, <content SeizuresOveranxious ID="encounterDi DisorderUrinary [id number]"> RetentionEpilepsy an d Epilepsy and Recurrent Recurrent SeizuresOveranxious Seizures</renetta DisorderUrinary nt>, <content RetentionEpilepsy and ID="encounterDi Recurrent [id number]"> SeizuresOveranxious Hypertension DisorderUrinary (systemic)</con RetentionEpilepsy an d tent>, <content Recurrent ID="encounterDi SeizuresOveranxious [id number]"> DisorderUrinary Urinary RetentionEpilepsy and Retention</cont Recurrent ent>, <content SeizuresOveranxious ID="encounterDi DisorderUrinary [id number]"> RetentionEpilepsy an d Overanxious Recurrent Disorder</renetta SeizuresOveranxious nt></td> DisorderUrinary RetentionEpilepsy and Recurrent SeizuresOveranxious DisorderUrinary RetentionEpilepsy and Recurrent SeizuresOveranxious DisorderUrinary RetentionEpilepsy and Recurrent SeizuresOveranxious DisorderUrinary RetentionEpilepsy and Recurrent SeizuresOveranxious DisorderUrinary RetentionEpilepsy and Recurrent SeizuresOveranxious DisorderUrinary RetentionEpilepsy and Recurrent SeizuresOveranxious DisorderUrinary RetentionEpilepsy and Recurrent SeizuresOveranxious DisorderUrinary RetentionEpilepsy and Recurrent SeizuresOveranxious DisorderUrinary RetentionEpilepsy and Recurrent SeizuresOveranxious DisorderUrinary RetentionEpilepsy and Recurrent SeizuresOveranxious DisorderUrinary RetentionEpilepsy and Recurrent SeizuresOveranxious DisorderUrinary RetentionEpilepsy and Recurrent SeizuresOveranxious DisorderUrinary RetentionEpilepsy and Recurrent SeizuresOveranxious DisorderUrinary RetentionEpilepsy and Recurrent SeizuresOveranxious DisorderUrinary RetentionEpilepsy and Recurrent SeizuresOveranxious DisorderUrinary RetentionEpilepsy and Recurrent SeizuresOveranxious DisorderUrinary RetentionEpilepsy and Recurrent SeizuresOveranxious DisorderUrinary RetentionEpilepsy and Recurrent SeizuresOveranxious DisorderUrinary RetentionEpilepsy and Recurrent SeizuresHypertension (systemic)Diabetes MellitusHypertension (systemic)Diabetes MellitusHypertension (systemic)Diabetes MellitusHypertension (systemic)Diabetes MellitusHypertension (systemic)Diabetes MellitusHypertension (systemic)Diabetes MellitusHypertension (systemic)Diabetes MellitusHypertension (systemic)Diabetes MellitusHypertension (systemic)Diabetes MellitusHypertension (systemic)Diabetes MellitusHypertension (systemic)Diabetes MellitusHypertension (systemic)Diabetes MellitusHypertension (systemic)Diabetes MellitusHypertension (systemic)Diabetes MellitusHypertension (systemic)Diabetes MellitusHypertension (systemic)Diabetes MellitusHypertension (systemic)Diabetes MellitusHypertension (systemic)Diabetes MellitusHypertension (systemic)Diabetes MellitusHypertension (systemic)Diabetes MellitusHypertension (systemic)Diabetes MellitusHypertension (systemic)Diabetes MellitusHypertension (systemic)Diabetes MellitusHypertension (systemic)Diabetes MellitusHypertension (systemic)Diabetes MellitusHypertension (systemic)Diabetes MellitusHypertension (systemic)Diabetes MellitusHypertension (systemic)Diabetes Mellitus Overanxious Disorder Urinary Retention Epilepsy and Recurrent Seizures Overanxious Disorder Urinary Retention Epilepsy and Recurrent Seizures Overanxious Disorder Urinary Retention Epilepsy and Recurrent Seizures Overanxious Disorder Urinary Retention Epilepsy and Recurrent Seizures Overanxious Disorder Urinary Retention Epilepsy and Recurrent Seizures Overanxious Disorder Urinary Retention Epilepsy and Recurrent Seizures Overanxious Disorder Urinary Retention Epilepsy and Recurrent Seizures Overanxious Disorder Urinary Retention Epilepsy and Recurrent Seizures Overanxious Disorder Urinary Retention Epilepsy and Recurrent Seizures Overanxious Disorder Urinary Retention Epilepsy and Recurrent Seizures Overanxious Disorder Urinary Retention Epilepsy and Recurrent Seizures Overanxious Disorder Urinary Retention Epilepsy and Recurrent Seizures Overanxious Disorder Urinary Retention Epilepsy and Recurrent Seizures Overanxious Disorder Urinary Retention Epilepsy and Recurrent Seizures Overanxious Disorder Urinary Retention Epilepsy and Recurrent Seizures Overanxious Disorder Urinary Retention Epilepsy and Recurrent Seizures Overanxious Disorder Urinary Retention Epilepsy and Recurrent Seizures Overanxious Disorder Urinary Retention Epilepsy and Recurrent Seizures Overanxious Disorder Urinary Retention Epilepsy and Recurrent Seizures Overanxious Disorder Urinary Retention Epilepsy and Recurrent Seizures Overanxious Disorder Urinary Retention Epilepsy and Recurrent Seizures Overanxious Disorder Urinary Retention Epilepsy and Recurrent Seizures Overanxious Disorder Urinary Retention Epilepsy and Recurrent Seizures Overanxious Disorder Urinary Retention Epilepsy and Recurrent Seizures Overanxious Disorder Urinary Retention Epilepsy and Recurrent Seizures Overanxious Disorder Urinary Retention Epilepsy and Recurrent Seizures Overanxious Disorder Urinary Retention Epilepsy and Recurrent Seizures Overanxious Disorder Urinary Retention Epilepsy and Recurrent Seizures Hypertension (systemic) Diabetes Mellitus Hypertension (systemic) Diabetes Mellitus Hypertension (systemic) Diabetes Mellitus Hypertension (systemic) Diabetes Mellitus Hypertension (systemic) Diabetes Mellitus Hypertension (systemic) Diabetes Mellitus Hypertension (systemic) Diabetes Mellitus Hypertension (systemic) Diabetes Mellitus Hypertension (systemic) Diabetes Mellitus Hypertension (systemic) Diabetes Mellitus Hypertension (systemic) Diabetes Mellitus Hypertension (systemic) Diabetes Mellitus Hypertension (systemic) Diabetes Mellitus Hypertension (systemic) Diabetes Mellitus Hypertension (systemic) Diabetes Mellitus Hypertension (systemic) Diabetes Mellitus Hypertension (systemic) Diabetes Mellitus Hypertension (systemic) Diabetes Mellitus Hypertension (systemic) Diabetes Mellitus Hypertension (systemic) Diabetes Mellitus Hypertension (systemic) Diabetes Mellitus Hypertension (systemic) Diabetes Mellitus Hypertension (systemic) Diabetes Mellitus Hypertension (systemic) Diabetes Mellitus Hypertension (systemic) Diabetes Mellitus Hypertension (systemic) Diabetes Mellitus Hypertension (systemic) Diabetes Mellitus Hypertension (systemic) Diabetes Mellitus Outpatient<td Attender: Wu 03/16/2019 CHAMBERINO ID="[id number]">*[facility] 04:28:00 PM ([facility]*</td><td>[facility]</td><td>[facility] 03/16/2019 Health Center</td><td>03/16/2019</td><td></td> 11:59:0 0 PM Center) EST OutpatientOFFICE/OUTPATIENT VISIT, EST Attender: Mental 02/29/20 19 [facility] 03:17:00 PM ([facility] nder: 02/28/2019 Medical Isaiah 03:17:00 PM Center) Darer EST Attender: Mental 02/17/2019 [facility] 10:33:00 AM ([facility] 02/17/[facility] Medical 10:33:00 AM Center) EST Outpatient<td Attender: Wu 02/01/2019 H CHAMBERINO ID="[id number]">[facility] 11:30: 00 AM y (Annia Roque</td><td>SEBASTIAN KIMBROUGH MD</td><td>Wu KIMBROUGH MD Health EDT - p [facility] 02/01/2019 e Health Center</td><td>02/01/2019</td><td><renetta 12:32: 12 PM r Center) nt EDT c ID="[id number]">Obesity</c h ontent>, <content o ID="[id number]">Diabetes l Mellitus Type 2 - Uncomplicated, e Uncontrolled</content>, <content s ID="[id number]">Arthralgia t - Knee / Patella / Tibia / Fibula e Right</content>, <content r ID="[id number]">Arthralgia o - Knee / Patella / Tibia / Fibula l Left</content>, <content e ID="[id number]">Essential m Hypertension</content>, <content i ID="[id number]">Epilepsy</ a content>, <content A ID="[id number]">Epilepsy</ r content>, <content t ID="[id number]">Hyperchole h sterolemia</content></td> r a l g i a - K n e e / P a t e l l a / T i b i a / F i b u l a L e f t A r t h r a l g i a - K n e e / P a t e l l a / T i b i a / F i b u l a R i g h t D i a b e t e s M e l l i t u s T y p e 2 - U n c o m p l i c a t e d , U n c o n t r o l l e d O b e s i t y H y p e r c h o l e s t e r o l e m i a A r t h r a l g i a - K n e e / P a t e l l a / T i b i a / F i b u l a L e f t A r t h r a l g i a - K n e e / P a t e l l a / T i b i a / F i b u l a R i g h t D i a b e t e s M e l l i t u s T y p e 2 - U n c o m p l i c a t e d , U n c o n t r o l l e d O b e s i t y H y p e r c h o l e s t e r o l e m i a A r t h r a l g i a - K n e e / P a t e l l a / T i b i a / F i b u l a L e f t A r t h r a l g i a - K n e e / P a t e l l a / T i b i a / F i b u l a R i g h t D i a b e t e s M e l l i t u s T y p e 2 - U n c o m p l i c a t e d , U n c o n t r o l l e d O b e s i t y H y p e r c h o l e s t e r o l e m i a A r t h r a l g i a - K n e e / P a t e l l a / T i b i a / F i b u l a L e f t A r t h r a l g i a - K n e e / P a t e l l a / T i b i a / F i b u l a R i g h t D i a b e t e s M e l l i t u s T y p e 2 - U n c o m p l i c a t e d , U n c o n t r o l l e d O b e s i t y H y p e r c h o l e s t e r o l e m i a A r t h r a l g i a - K n e e / P a t e l l a / T i b i a / F i b u l a L e f t A r t h r a l g i a - K n e e / P a t e l l a / T i b i a / F i b u l a R i g h t D i a b e t e s M e l l i t u s T y p e 2 - U n c o m p l i c a t e d , U n c o n t r o l l e d O b e s i t y H y p e r c h o l e s t e r o l e m i a A r t h r a l g i a - K n e e / P a t e l l a / T i b i a / F i b u l a L e f t A r t h r a l g i a - K n e e / P a t e l l a / T i b i a / F i b u l a R i g h t D i a b e t e s M e l l i t u s T y p e 2 - U n c o m p l i c a t e d , U n c o n t r o l l e d O b e s i t y H y p e r c h o l e s t e r o l e m i a A r t h r a l g i a - K n e e / P a t e l l a / T i b i a / F i b u l a L e f t A r t h r a l g i a - K n e e / P a t e l l a / T i b i a / F i b u l a R i g h t D i a b e t e s M e l l i t u s T y p e 2 - U n c o m p l i c a t e d , U n c o n t r o l l e d O b e s i t y H y p e r c h o l e s t e r o l e m i a A r t h r a l g i a - K n e e / P a t e l l a / T i b i a / F i b u l a L e f t A r t h r a l g i a - K n e e / P a t e l l a / T i b i a / F i b u l a R i g h t D i a b e t e s M e l l i t u s T y p e 2 - U n c o m p l i c a t e d , U n c o n t r o l l e d O b e s i t y H y p e r c h o l e s t e r o l e m i a A r t h r a l g i a - K n e e / P a t e l l a / T i b i a / F i b u l a L e f t A r t h r a l g i a - K n e e / P a t e l l a / T i b i a / F i b u l a R i g h t D i a b e t e s M e l l i t u s T y p e 2 - U n c o m p l i c a t e d , U n c o n t r o l l e d O b e s i t y H y p e r c h o l e s t e r o l e m i a A r t h r a l g i a - K n e e / P a t e l l a / T i b i a / F i b u l a L e f t A r t h r a l g i a - K n e e / P a t e l l a / T i b i a / F i b u l a R i g h t D i a b e t e s M e l l i t u s T y p e 2 - U n c o m p l i c a t e d , U n c o n t r o l l e d O b e s i t y H y p e r c h o l e s t e r o l e m i a A r t h r a l g i a - K n e e / P a t e l l a / T i b i a / F i b u l a L e f t A r t h r a l g i a - K n e e / P a t e l l a / T i b i a / F i b u l a R i g h t D i a b e t e s M e l l i t u s T y p e 2 - U n c o m p l i c a t e d , U n c o n t r o l l e d O b e s i t y H y p e r c h o l e s t e r o l e m i a A r t h r a l g i a - K n e e / P a t e l l a / T i b i a / F i b u l a L e f t A r t h r a l g i a - K n e e / P a t e l l a / T i b i a / F i b u l a R i g h t D i a b e t e s M e l l i t u s T y p e 2 - U n c o m p l i c a t e d , U n c o n t r o l l e d O b e s i t y H y p e r c h o l e s t e r o l e m i a A r t h r a l g i a - K n e e / P a t e l l a / T i b i a / F i b u l a L e f t A r t h r a l g i a - K n e e / P a t e l l a / T i b i a / F i b u l a R i g h t D i a b e t e s M e l l i t u s T y p e 2 - U n c o m p l i c a t e d , U n c o n t r o l l e d O b e s i t y H y p e r c h o l e s t e r o l e m i a A r t h r a l g i a - K n e e / P a t e l l a / T i b i a / F i b u l a L e f t A r t h r a l g i a - K n e e / P a t e l l a / T i b i a / F i b u l a R i g h t D i a b e t e s M e l l i t u s T y p e 2 - U n c o m p l i c a t e d , U n c o n t r o l l e d O b e s i t y H y p e r c h o l e s t e r o l e m i a A r t h r a l g i a - K n e e / P a t e l l a / T i b i a / F i b u l a L e f t A r t h r a l g i a - K n e e / P a t e l l a / T i b i a / F i b u l a R i g h t D i a b e t e s M e l l i t u s T y p e 2 - U n c o m p l i c a t e d , U n c o n t r o l l e d O b e s i t y H y p e r c h o l e s t e r o l e m i a A r t h r a l g i a - K n e e / P a t e l l a / T i b i a / F i b u l a L e f t A r t h r a l g i a - K n e e / P a t e l l a / T i b i a / F i b u l a R i g h t D i a b e t e s M e l l i t u s T y p e 2 - U n c o m p l i c a t e d , U n c o n t r o l l e d O b e s i t y H y p e r c h o l e s t e r o l e m i a A r t h r a l g i a - K n e e / P a t e l l a / T i b i a / F i b u l a L e f t A r t h r a l g i a - K n e e / P a t e l l a / T i b i a / F i b u l a R i g h t D i a b e t e s M e l l i t u s T y p e 2 - U n c o m p l i c a t e d , U n c o n t r o l l e d O b e s i t y H y p e r c h o l e s t e r o l e m i a A r t h r a l g i a - K n e e / P a t e l l a / T i b i a / F i b u l a L e f t A r t h r a l g i a - K n e e / P a t e l l a / T i b i a / F i b u l a R i g h t D i a b e t e s M e l l i t u s T y p e 2 - U n c o m p l i c a t e d , U n c o n t r o l l e d O b e s i t y H y p e r c h o l e s t e r o l e m i a A r t h r a l g i a - K n e e / P a t e l l a / T i b i a / F i b u l a L e f t A r t h r a l g i a - K n e e / P a t e l l a / T i b i a / F i b u l a R i g h t D i a b e t e s M e l l i t u s T y p e 2 - U n c o m p l i c a t e d , U n c o n t r o l l e d O b e s i t y H y p e r c h o l e s t e r o l e m i a A r t h r a l g i a - K n e e / P a t e l l a / T i b i a / F i b u l a L e f t A r t h r a l g i a - K n e e / P a t e l l a / T i b i a / F i b u l a R i g h t D i a b e t e s M e l l i t u s T y p e 2 - U n c o m p l i c a t e d , U n c o n t r o l l e d O b e s i t y H y p e r c h o l e s t e r o l e m i a A r t h r a l g i a - K n e e / P a t e l l a / T i b i a / F i b u l a L e f t A r t h r a l g i a - K n e e / P a t e l l a / T i b i a / F i b u l a R i g h t D i a b e t e s M e l l i t u s T y p e 2 - U n c o m p l i c a t e d , U n c o n t r o l l e d O b e s i t y H y p e r c h o l e s t e r o l e m i a A r t h r a l g i a - K n e e / P a t e l l a / T i b i a / F i b u l a L e f t A r t h r a l g i a - K n e e / P a t e l l a / T i b i a / F i b u l a R i g h t O b e s i t y H y p e r c h o l e s t e r o l e m i a A r t h r a l g i a - K n e e / P a t e l l a / T i b i a / F i b u l a L e f t A r t h r a l g i a - K n e e / P a t e l l a / T i b i a / F i b u l a R i g h t O b e s i t y H y p e r c h o l e s t e r o l e m i a A r t h r a l g i a - K n e e / P a t e l l a / T i b i a / F i b u l a L e f t A r t h r a l g i a - K n e e / P a t e l l a / T i b i a / F i b u l a R i g h t O b e s i t y H y p e r c h o l e s t e r o l e m i a A r t h r a l g i a - K n e e / P a t e l l a / T i b i a / F i b u l a L e f t H y p e r c h o l e s t e r o l e m i a A r t h r a l g i a - K n e e / P a t e l l a / T i b i a / F i b u l a L e f t A r t h r a l g i a - K n e e / P a t e l l a / T i b i a / F i b u l a R i g h t D i a b e t e s M e l l i t u s T y p e 2 - U n c o m p l i c a t e d , U n c o n t r o l l e d O b e s i t y A r t h r a l g i a - K n e e / P a t e l l a / T i b i a / F i b u l a R i g h t O b e s i t y H y p e r c h o l e s t e r o l e m i a A r t h r a l g i a - K n e e / P a t e l l a / T i b i a / F i b u l a L e f t A r t h r a l g i a - K n e e / P a t e l l a / T i b i a / F i b u l a R i g h t O b e s i t y H y p e r c h o l e s t e r o l e m i a A r t h r a l g i a - K n e e / P a t e l l a / T i b i a / F i b u l a L e f t A r t h r a l g i a - K n e e / P a t e l l a / T i b i a / F i b u l a R i g h t O b e s i t y E p i l e p s y E p i l e p s y E s s e n t i a l H y p e r t e n s i o n E p i l e p s y E p i l e p s y E s s e n t i a l H y p e r t e n s i o n E p i l e p s y E p i l e p s y E s s e n t i a l H y p e r t e n s i o n E p i l e p s y E p i l e p s y E s s e n t i a l H y p e r t e n s i o n E p i l e p s y E p i l e p s y E s s e n t i a l H y p e r t e n s i o n E p i l e p s y E p i l e p s y E s s e n t i a l H y p e r t e n s i o n E p i l e p s y E p i l e p s y E s s e n t i a l H y p e r t e n s i o n E p i l e p s y E p i l e p s y E s s e n t i a l H y p e r t e n s i o n E p i l e p s y E p i l e p s y E s s e n t i a l H y p e r t e n s i o n E p i l e p s y E p i l e p s y E s s e n t i a l H y p e r t e n s i o n E p i l e p s y E p i l e p s y E s s e n t i a l H y p e r t e n s i o n E p i l e p s y E p i l e p s y E s s e n t i a l H y p e r t e n s i o n E p i l e p s y E p i l e p s y E s s e n t i a l H y p e r t e n s i o n E p i l e p s y E p i l e p s y E s s e n t i a l H y p e r t e n s i o n E p i l e p s y E p i l e p s y E s s e n t i a l H y p e r t e n s i o n E p i l e p s y E p i l e p s y E s s e n t i a l H y p e r t e n s i o n E p i l e p s y E p i l e p s y E s s e n t i a l H y p e r t e n s i o n E p i l e p s y E p i l e p s y E s s e n t i a l H y p e r t e n s i o n E p i l e p s y E p i l e p s y E s s e n t i a l H y p e r t e n s i o n E p i l e p s y E p i l e p s y E s s e n t i a l H y p e r t e n s i o n E p i l e p s y E p i l e p s y E s s e n t i a l H y p e r t e n s i o n E p i l e p s y E p i l e p s y E s s e n t i a l H y p e r t e n s i o n D i a b e t e s M e l l i t u s T y p e 2 - U n c o m p l i c a t e d , U n c o n t r o l l e d E p i l e p s y E p i l e p s y E s s e n t i a l H y p e r t e n s i o n D i a b e t e s M e l l i t u s T y p e 2 - U n c o m p l i c a t e d , U n c o n t r o l l e d E p i l e p s y E p i l e p s y E s s e n t i a l H y p e r t e n s i o n D i a b e t e s M e l l i t u s T y p e 2 - U n c o m p l i c a t e d , U n c o n t r o l l e d E p i l e p s y E p i l e p s y E s s e n t i a l H y p e r t e n s i o n E p i l e p s y E p i l e p s y E s s e n t i a l H y p e r t e n s i o n D i a b e t e s M e l l i t u s T y p e 2 - U n c o m p l i c a t e d , U n c o n t r o l l e d E p i l e p s y E p i l e p s y E s s e n t i a l H y p e r t e n s i o n D i a b e t e s M e l l i t u s T y p e 2 - U n c o m p l i c a t e d , U n c o n t r o l l e d E p i l e p s y E p i l e p s y E s s e n t i a l H y p e r t e n s i o n D i a b e t e s M e l l i t u s T y p e 2 - U n c o m p l i c a t e d , U n c o n t r o l l e d Hypercholesterolemia Arthralgia - Knee / Patella / Tibia / Fi bula Left Arthralgia - Knee / Patella / Tibia / Fi bula Right Diabetes Mellitus Type 2 - Uncomplicated , Uncontrolled Obesity Hypercholesterolemia Arthralgia - Knee / Patella / Tibia / Fi bula Left Arthralgia - Knee / Patella / Tibia / Fi bula Right Diabetes Mellitus Type 2 - Uncomplicated , Uncontrolled Obesity Hypercholesterolemia Arthralgia - Knee / Patella / Tibia / Fi bula Left Arthralgia - Knee / Patella / Tibia / Fi bula Right Diabetes Mellitus Type 2 - Uncomplicated , Uncontrolled Obesity Hypercholesterolemia Arthralgia - Knee / Patella / Tibia / Fi bula Left Arthralgia - Knee / Patella / Tibia / Fi bula Right Diabetes Mellitus Type 2 - Uncomplicated , Uncontrolled Obesity Hypercholesterolemia Arthralgia - Knee / Patella / Tibia / Fi bula Left Arthralgia - Knee / Patella / Tibia / Fi bula Right Diabetes Mellitus Type 2 - Uncomplicated , Uncontrolled Obesity Hypercholesterolemia Arthralgia - Knee / Patella / Tibia / Fi bula Left Arthralgia - Knee / Patella / Tibia / Fi bula Right Diabetes Mellitus Type 2 - Uncomplicated , Uncontrolled Obesity Hypercholesterolemia Arthralgia - Knee / Patella / Tibia / Fi bula Left Arthralgia - Knee / Patella / Tibia / Fi bula Right Diabetes Mellitus Type 2 - Uncomplicated , Uncontrolled Obesity Hypercholesterolemia Arthralgia - Knee / Patella / Tibia / Fi bula Left Arthralgia - Knee / Patella / Tibia / Fi bula Right Diabetes Mellitus Type 2 - Uncomplicated , Uncontrolled Obesity Hypercholesterolemia Arthralgia - Knee / Patella / Tibia / Fi bula Left Arthralgia - Knee / Patella / Tibia / Fi bula Right Diabetes Mellitus Type 2 - Uncomplicated , Uncontrolled Obesity Hypercholesterolemia Arthralgia - Knee / Patella / Tibia / Fi bula Left Arthralgia - Knee / Patella / Tibia / Fi bula Right Diabetes Mellitus Type 2 - Uncomplicated , Uncontrolled Obesity Hypercholesterolemia Arthralgia - Knee / Patella / Tibia / Fi bula Left Arthralgia - Knee / Patella / Tibia / Fi bula Right Diabetes Mellitus Type 2 - Uncomplicated , Uncontrolled Obesity Hypercholesterolemia Arthralgia - Knee / Patella / Tibia / Fi bula Left Arthralgia - Knee / Patella / Tibia / Fi bula Right Diabetes Mellitus Type 2 - Uncomplicated , Uncontrolled Obesity Hypercholesterolemia Arthralgia - Knee / Patella / Tibia / Fi bula Left Arthralgia - Knee / Patella / Tibia / Fi bula Right Diabetes Mellitus Type 2 - Uncomplicated , Uncontrolled Obesity Hypercholesterolemia Arthralgia - Knee / Patella / Tibia / Fi bula Left Arthralgia - Knee / Patella / Tibia / Fi bula Right Diabetes Mellitus Type 2 - Uncomplicated , Uncontrolled Obesity Hypercholesterolemia Arthralgia - Knee / Patella / Tibia / Fi bula Left Arthralgia - Knee / Patella / Tibia / Fi bula Right Diabetes Mellitus Type 2 - Uncomplicated , Uncontrolled Obesity Hypercholesterolemia Arthralgia - Knee / Patella / Tibia / Fi bula Left Arthralgia - Knee / Patella / Tibia / Fi bula Right Diabetes Mellitus Type 2 - Uncomplicated , Uncontrolled Obesity Hypercholesterolemia Arthralgia - Knee / Patella / Tibia / Fi bula Left Arthralgia - Knee / Patella / Tibia / Fi bula Right Diabetes Mellitus Type 2 - Uncomplicated , Uncontrolled Obesity Hypercholesterolemia Arthralgia - Knee / Patella / Tibia / Fi bula Left Arthralgia - Knee / Patella / Tibia / Fi bula Right Diabetes Mellitus Type 2 - Uncomplicated , Uncontrolled Obesity Hypercholesterolemia Arthralgia - Knee / Patella / Tibia / Fi bula Left Arthralgia - Knee / Patella / Tibia / Fi bula Right Diabetes Mellitus Type 2 - Uncomplicated , Uncontrolled Obesity Hypercholesterolemia Arthralgia - Knee / Patella / Tibia / Fi bula Left Arthralgia - Knee / Patella / Tibia / Fi bula Right Diabetes Mellitus Type 2 - Uncomplicated , Uncontrolled Obesity Hypercholesterolemia Arthralgia - Knee / Patella / Tibia / Fi bula Left Arthralgia - Knee / Patella / Tibia / Fi bula Right Diabetes Mellitus Type 2 - Uncomplicated , Uncontrolled Obesity Hypercholesterolemia Arthralgia - Knee / Patella / Tibia / Fi bula Left Arthralgia - Knee / Patella / Tibia / Fi bula Right Obesity Hypercholesterolemia Arthralgia - Knee / Patella / Tibia / Fi bula Left Arthralgia - Knee / Patella / Tibia / Fi bula Right Obesity Hypercholesterolemia Arthralgia - Knee / Patella / Tibia / Fi bula Left Arthralgia - Knee / Patella / Tibia / Fi bula Right Obesity Hypercholesterolemia Arthralgia - Knee / Patella / Tibia / Fi bula Left Hypercholesterolemia Arthralgia - Knee / Patella / Tibia / Fi bula Left Arthralgia - Knee / Patella / Tibia / Fi bula Right Diabetes Mellitus Type 2 - Uncomplicated , Uncontrolled Obesity Arthralgia - Knee / Patella / Tibia / Fi bula Right Obesity Hypercholesterolemia Arthralgia - Knee / Patella / Tibia / Fi bula Left Arthralgia - Knee / Patella / Tibia / Fi bula Right Obesity Hypercholesterolemia Arthralgia - Knee / Patella / Tibia / Fi bula Left Arthralgia - Knee / Patella / Tibia / Fi bula Right Obesity Epilepsy Epilepsy Essential Hypertension Epilepsy Epilepsy Essential Hypertension Epilepsy Epilepsy Essential Hypertension Epilepsy Epilepsy Essential Hypertension Epilepsy Epilepsy Essential Hypertension Epilepsy Epilepsy Essential Hypertension Epilepsy Epilepsy Essential Hypertension Epilepsy Epilepsy Essential Hypertension Epilepsy Epilepsy Essential Hypertension Epilepsy Epilepsy Essential Hypertension Epilepsy Epilepsy Essential Hypertension Epilepsy Epilepsy Essential Hypertension Epilepsy Epilepsy Essential Hypertension Epilepsy Epilepsy Essential Hypertension Epilepsy Epilepsy Essential Hypertension Epilepsy Epilepsy Essential Hypertension Epilepsy Epilepsy Essential Hypertension Epilepsy Epilepsy Essential Hypertension Epilepsy Epilepsy Essential Hypertension Epilepsy Epilepsy Essential Hypertension Epilepsy Epilepsy Essential Hypertension Epilepsy Epilepsy Essential Hypertension Diabetes Mellitus Type 2 - Uncomplicated , Uncontrolled Epilepsy Epilepsy Essential Hypertension Diabetes Mellitus Type 2 - Uncomplicated , Uncontrolled Epilepsy Epilepsy Essential Hypertension Diabetes Mellitus Type 2 - Uncomplicated , Uncontrolled Epilepsy Epilepsy Essential Hypertension Epilepsy Epilepsy Essential Hypertension Diabetes Mellitus Type 2 - Uncomplicated , Uncontrolled Epilepsy Epilepsy Essential Hypertension Diabetes Mellitus Type 2 - Uncomplicated , Uncontrolled Epilepsy Epilepsy Essential Hypertension Diabetes Mellitus Type 2 - Uncomplicated , Uncontrolled OutpatientOFFICE/OUTPATIENT Attender: Adolfo Russell [facility] 03:17:00 PM ([facility] LexAttender: Clinic EDT - [facility] 01/16/2019 Medical 03:17:00 PM Center) EDT Attender: Isaiah Russell 01/16/2019 [facility] 03:17:00 PM ([facility] EDT [facility] 01/16/2019 Medical 03:17:00 PM Center) EDT Attender: Padmini Russell 01/09/2019 [facility] 12:08:00 PM ([facility] EDT [facility] 01/09/2019 Medical 12:08:00 PM Center) EDT Outpatient<td Attender: Wu 12/29/2018 RADHA ID="encounterTypeDescription JUDD [facility] 04:27:00 PM (Annia King [id number]">*No Health EDT - Neighborhood Show*</td><td>[facility] 12/29/[address]</td><td[facility] 11:59[facility]) [facility] EDT Center</td><td>12/29/2018</t d><td></td> Individual Psychotherapy (30 Attender: Adolfo Russell 12/21/2018 [facility] Min) [facility] 03:15:00 PM ([facility] EDT [facility] 12/21/2018 Medical 03:15:00 PM Center) EDT OutpatientOFFICE/OUTPATIENT Attender: Adolfo Russell 12/21/2018 [facility] VISIT, [facility] 01:13:00 PM ([facility] BurnettAttender: Clinic EDT - [facility] 12/21/2018 Medical 01:13:00 PM Center) EDT Outpatient<td Attender: Yvonne Washburn 12/15/2018 ASHLI ZHOU ID="encounterTypeDescription [place] [facility] 02:30:00 PM (Annia King ID38">OFFICE Health EDT - Neighborhood VISIT</td><td>Yvonne Bradford [place] 12/15/2018 Health DPM</td><td>Wu 01:26:07 PM Cent er) [facility] Center</td><td>12/15/2018</t d><td></td> Outpatient<td Attender: Wu 12/15/2018 Fabrizio CHAMBERINO ID="encounterTypeDescription [facility] 12:15:00 PM ghtOver (Bruin ID39">WALKINS</td><td>[facility] [facility] [employer]</td><td>Wu 12:53:18 PM htOverw Cent er) [facility] EDT eight[place]</td><td>12/15/2018</t erweigh d><td><content tOverwe ID="[id number] ightOve ">Lumbago</content>, rweight <content Overwei ID="[id number] ghtOver ">Overweight</content>, weightO <content verweig ID="[id number] htOverw ">Diabetes eightOv Mellitus</content></td> erweigh tOverwe ightOve rweight Overwei ghtOver weightO verweig htOverw eightOv erweigh tOverwe ightOve rweight Overwei ghtOver weightO verweig htOverw eightOv erweigh tOverwe ightOve rweight Overwei ghtOver weightL umbagoL umbagoL umbagoL umbagoL umbagoL umbagoL umbagoL umbagoL umbagoL umbagoL umbagoL umbagoL umbagoL umbagoL umbagoL umbagoL umbagoL umbagoL umbagoL umbagoL umbagoL umbagoL umbagoL umbagoL umbagoL umbagoL umbdavidL umbagoL umbagoL umbagoD iabetes Mellitu sDiabet es Mellitu sDiabet es Mellitu sDiabet es Mellitu sDiabet es Mellitu sDiabet es Mellitu sDiabet es Mellitu sDiabet es Mellitu sDiabet es Mellitu sDiabet es Mellitu sDiabet es Mellitu sDiabet es Mellitu sDiabet es Mellitu sDiabet es Mellitu sDiabet es Mellitu sDiabet es Mellitu sDiabet es Mellitu sDiabet es Mellitu sDiabet es Mellitu sDiabet es Mellitu sDiabet es Mellitu sDiabet es Mellitu sDiabet es Mellitu sDiabet es Mellitu sDiabet es Mellitu sDiabet es Mellitu sDiabet es Mellitu sDiabet es Mellitu sDiabet es Mellitu sHypert ension (system ic) Overweight Overweight Overweight Overweight Overweight Overweight Overweight Overweight Overweight Overweight Overweight Overweight Overweight Overweight Overweight Overweight Overweight Overweight Overweight Overweight Overweight Overweight Overweight Overweight Overweight Overweight Overweight Overweight Overweight Overweight Lumbago Lumbago Lumbago Lumbago Lumbago Lumbago Lumbago Lumbago Lumbago Lumbago Lumbago Lumbago Lumbago Lumbago Lumbago Lumbago Lumbago Lumbago Lumbago Lumbago Lumbago Lumbago Lumbago Lumbago Lumbago Lumbago Lumbago Lumbago Lumbago Lumbago Diabetes Mellitus Diabetes Mellitus Diabetes Mellitus Diabetes Mellitus Diabetes Mellitus Diabetes Mellitus Diabetes Mellitus Diabetes Mellitus Diabetes Mellitus Diabetes Mellitus Diabetes Mellitus Diabetes Mellitus Diabetes Mellitus Diabetes Mellitus Diabetes Mellitus Diabetes Mellitus Diabetes Mellitus Diabetes Mellitus Diabetes Mellitus Diabetes Mellitus Diabetes Mellitus Diabetes Mellitus Diabetes Mellitus Diabetes Mellitus Diabetes Mellitus Diabetes Mellitus Diabetes Mellitus Diabetes Mellitus Diabetes Mellitus Hypertension (systemic) Outpatient<td Attender: Wu 12/14/2018 CHAMBERINO ID="[id number]">*Phone*</td><td>[facility] 05:18:00 PM ([facility]</td><td>[facility] ED T [facility] Center</td><td>12/14/2018</td><td></td> [facility] Center [facility] Health 11:59:00 PM Center) EDT Individual Psychotherapy (30 Min) Attender: Mental 11/23/2018 [facility] 05[facility] PM ([facility] EDT - [place] 11/23/2018 Medical 05:45:00 PM Center) EDT OutpatientOFFICE/OUTPATIENT VISIT, EST Attender: Mental 11/24/[address] [facility] 01:16:00 PM ([facility] EDT - [place] nder: 11/23/2018 Medical Isaiah 01:16:00 PM Center) [place] EDT Outpatient<td Attender: Wu 11/21/2018 H RADHA ID="[id number]">WALKINS</td><td>[facility] 11:30:00 AM y ([facility] [employer]</td><td>[facility] ED T - p Neighborhood Center</td><td>11/21/2018</td><td><content [employer] Center 11/10 e Health ID="[id number]">Diabetes Mellitus</content>, 01:08:08 PM r Center) <content ID="[id number]">Obesity</content>, EDT l <content i ID="[id number]">Hyperlipidemia</content></td> p i d e m i a H y p e r l i p i d e m i a H y p e r l i p i d e m i a H y p e r l i p i d e m i a H y p e r l i p i d e m i a H y p e r l i p i d e m i a H y p e r l i p i d e m i a H y p e r l i p i d e m i a H y p e r l i p i d e m i a H y p e r l i p i d e m i a H y p e r l i p i d e m i a H y p e r l i p i d e m i a H y p e r l i p i d e m i a H y p e r l i p i d e m i a H y p e r l i p i d e m i a H y p e r l i p i d e m i a H y p e r l i p i d e m i a H y p e r l i p i d e m i a H y p e r l i p i d e m i a H y p e r l i p i d e m i a H y p e r l i p i d e m i a H y p e r l i p i d e m i a H y p e r l i p i d e m i a H y p e r l i p i d e m i a O b e s i t y O b e s i t y O b e s i t y O b e s i t y O b e s i t y O b e s i t y O b e s i t y O b e s i t y O b e s i t y O b e s i t y O b e s i t y O b e s i t y O b e s i t y O b e s i t y O b e s i t y O b e s i t y O b e s i t y O b e s i t y O b e s i t y O b e s i t y O b e s i t y O b e s i t y O b e s i t y O b e s i t y H y p e r l i p i d e m i a O b e s i t y H y p e r l i p i d e m i a O b e s i t y H y p e r l i p i d e m i a O b e s i t y H y p e r l i p i d e m i a O b e s i t y H y p e r l i p i d e m i a O b e s i t y H y p e r l i p i d e m i a O b e s i t y H y p e r l i p i d e m i a O b e s i t y D i a b e t e s M e l l i t u s D i a b e t e s M e l l i t u s D i a b e t e s M e l l i t u s D i a b e t e s M e l l i t u s D i a b e t e s M e l l i t u s D i a b e t e s M e l l i t u s D i a b e t e s M e l l i t u s D i a b e t e s M e l l i t u s D i a b e t e s M e l l i t u s D i a b e t e s M e l l i t u s D i a b e t e s M e l l i t u s D i a b e t e s M e l l i t u s D i a b e t e s M e l l i t u s D i a b e t e s M e l l i t u s D i a b e t e s M e l l i t u s D i a b e t e s M e l l i t u s D i a b e t e s M e l l i t u s D i a b e t e s M e l l i t u s D i a b e t e s M e l l i t u s D i a b e t e s M e l l i t u s D i a b e t e s M e l l i t u s D i a b e t e s M e l l i t u s D i a b e t e s M e l l i t u s D i a b e t e s M e l l i t u s D i a b e t e s M e l l i t u s D i a b e t e s M e l l i t u s D i a b e t e s M e l l i t u s D i a b e t e s M e l l i t u s D i a b e t e s M e l l i t u s D i a b e t e s M e l l i t u s D i a b e t e s M e l l i t u s Hyperlipidemia Hyperlipidemia Hyperlipidemia Hyperlipidemia Hyperlipidemia Hyperlipidemia Hyperlipidemia Hyperlipidemia Hyperlipidemia Hyperlipidemia Hyperlipidemia Hyperlipidemia Hyperlipidemia Hyperlipidemia Hyperlipidemia Hyperlipidemia Hyperlipidemia Hyperlipidemia Hyperlipidemia Hyperlipidemia Hyperlipidemia Hyperlipidemia Hyperlipidemia Hyperlipidemia Obesity Obesity Obesity Obesity Obesity Obesity Obesity Obesity Obesity Obesity Obesity Obesity Obesity Obesity Obesity Obesity Obesity Obesity Obesity Obesity Obesity Obesity Obesity Obesity Hyperlipidemia Obesity Hyperlipidemia Obesity Hyperlipidemia Obesity Hyperlipidemia Obesity Hyperlipidemia Obesity Hyperlipidemia Obesity Hyperlipidemia Obesity Diabetes Mellitus Diabetes Mellitus Diabetes Mellitus Diabetes Mellitus Diabetes Mellitus Diabetes Mellitus Diabetes Mellitus Diabetes Mellitus Diabetes Mellitus Diabetes Mellitus Diabetes Mellitus Diabetes Mellitus Diabetes Mellitus Diabetes Mellitus Diabetes Mellitus Diabetes Mellitus Diabetes Mellitus Diabetes Mellitus Diabetes Mellitus Diabetes Mellitus Diabetes Mellitus Diabetes Mellitus Diabetes Mellitus Diabetes Mellitus Diabetes Mellitus Diabetes Mellitus Diabetes Mellitus Diabetes Mellitus Diabetes Mellitus Diabetes Mellitus Diabetes Mellitus Individual Attender: Mental 10/26/2018 [facility] 06:12:00 PM (Saint (30 Min) Lex [facility] EDT [facility] 10/26/2018 Medical 06:12:00 PM Center) EDT OutpatientOFFI Attender: Mental 10/26/2018 NEXTGEN CE/OUTPATIENT [facility] 01:46:00 PM (Saint VISIT, EST GarciaAtte [facility] EDT [facility] nder: 10/26/2018 Medical Isaiah 01:46:00 PM Center) [place] EDT Outpatient<td Attender: Wu 10/24/2018 RADHA ID="enc[facility]T [facility] 11:24[facility]00 AM (Annia Johnson rnon e[facility]criptH[facility] od ID42">*OUTREAC [employer] Center 10/24/2018 Health H*</td><td>GIF 11:59:00 PM Center) TY [facility] EDT [employer]</td><td>[facility]</td><td >10/24/2018</t d><td></td> Outpatient<td Attender: Wu 2018 RADHA ID="encounterT [facility] 04:28:00 PM ([facility] - [facility] od ID43">PATIENT Center 2018 Health ADVOCACY</td>< 11:59:00 PM Center) td[facility]td><t d>[facility]</td><td >2018</t d><td></td> Outpatient<td Attender: Wu 10/18/2018 RADHA ID="encounterT [facility] 10:35:00 AM ([facility] od ID44">PATIENT Center 10/18/2018 Health ADVOCACY</td>< 11:59:00 PM Center) td>Melissa EDT [facility]</td><t d>[facility]</td><td >10/18/2018</t d><td></td> Outpatient<td Attender: Wu 10/18/2018 DepressionDepressionDe press RADHA ID="encounterT [facility] 09:00:00 AM ionDepressionDepress ionDepr (Annia King [facility]DescriptC[facility] EDT - essionDepressionDepre ssionD Neighborhood ID45">OFFICE [employer] Center 10/18/2018 epressionDepressionDepr essi Health VISIT</td><td> 11:18:39 AM onDepressionDepressi onDepre Center) [facility] EDT ssionDepressionDepres sionDe [employer]</td><td>Yo pressionDepressionDep ressio nkers nDepressionDepressionDepr Community sionDepressionDepressionD Health matology Non-infectious Center</td><td NailsBackacheAnemiaEp ilepsy >10/18/2018</t and Recurrent Seizure sRenal d><td><content CystDermatology ID="encounterD Non-infectious [id number] NailsBackacheAnemiaEp ilepsy ">Renal and Recurrent SeizuresRen al Cyst</content> CystDermatology , <content Non-infectious ID="encounterD NailsBackacheAnemiaEp ilepsy [id number] and Recurrent Seizure sRenal ">Epilepsy and CystDermatology Recurrent Non-infectious Seizures</cont NailsBackacheAnemiaEp ilepsy ent>, <content and Recurrent Seizure sRenal ID="encounterD CystDermatology [id number] Non-infectious ">Diabetes NailsBackacheAnemiaEpilep sy Mellitus</cont and Recurrent Seizure sRenal ent>, <content CystDermatology ID="encounterD Non-infectious [id number] NailsBackacheAnemiaEp ilepsy ">Anemia</cont and Recurrent Seizure sRenal ent>, <content CystDermatology ID="encounterD Non-infectious [id number] NailsBackacheAnemiaEp ilepsy ">Backache</co and Recurrent Seizure sRenal ntent>, CystDermatology <content Non-infectious ID="encounterD NailsBackacheAnemiaEp ilepsy [id number] and Recurrent Seizure sRenal ">Depression</ CystDermatology content>, Non-infectious <content NailsBackacheAnemiaEpilep sy ID="encounterD and Recurrent Seizure sRenal [id number] CystDermatology ">Dermatology Non-infectious Non-infectious NailsBackacheAnemiaEp ilepsy Nails</content and Recurrent Seizure sRenal ></td> CystDermatology Non-infectious NailsBackacheAnemiaEpilep sy and Recurrent SeizuresRen al CystDermatology Non-infectious NailsBackacheAnemiaEpilep sy and Recurrent SeizuresRen al CystDermatology Non-infectious NailsBackacheAnemiaEpilep sy and Recurrent SeizuresRen al CystDermatology Non-infectious NailsBackacheAnemiaEpilep sy and Recurrent SeizuresRen al CystDermatology Non-infectious NailsBackacheAnemiaEpilep sy and Recurrent SeizuresRen al CystDermatology Non-infectious NailsBackacheAnemiaEpilep sy and Recurrent SeizuresRen al CystDermatology Non-infectious NailsBackacheAnemiaEpilep sy and Recurrent SeizuresRen al CystDermatology Non-infectious NailsBackacheAnemiaEpilep sy and Recurrent SeizuresRen al CystDermatology Non-infectious NailsBackacheAnemiaEpilep sy and Recurrent SeizuresRen al CystDermatology Non-infectious NailsBackacheAnemiaEpilep sy and Recurrent SeizuresRen al CystDermatology Non-infectious NailsBackacheAnemiaEpilep sy and Recurrent SeizuresRen al CystDermatology Non-infectious NailsBackacheAnemiaEpilep sy and Recurrent SeizuresRen al CystDermatology Non-infectious NailsBackacheAnemiaEpilep sy and Recurrent SeizuresRen al CystDermatology Non-infectious NailsBackacheAnemiaEpilep sy and Recurrent SeizuresRen al CystDermatology Non-infectious NailsBackacheAnemiaEpilep sy and Recurrent SeizuresRen al CystDermatology Non-infectious NailsBackacheAnemiaEpilep sy and Recurrent SeizuresRen al CystDermatology Non-infectious NailsBackacheAnemiaEpilep sy and Recurrent SeizuresRen al CystDermatology Non-infectious NailsBackacheAnemiaEpilep sy and Recurrent SeizuresRen al CystDermatology Non-infectious NailsBackacheAnemiaEpilep sy and Recurrent SeizuresRen al CystDermatology Non-infectious NailsBackacheAnemiaEpilep sy and Recurrent SeizuresRen al CystDermatology Non-infectious NailsBackacheAnemiaEpilep sy and Recurrent SeizuresRen al CystDermatology Non-infectious NailsBackacheAnemiaEpilep sy and Recurrent SeizuresRen al CystDermatology Non-infectious NailsBackacheAnemiaEpilep sy and Recurrent SeizuresRen al CystDermatology Non-infectious NailsBackacheAnemiaEpilep sy and Recurrent SeizuresRen al CystDermatology Non-infectious NailsBackacheAnemiaEpilep sy and Recurrent SeizuresRen al CystDermatology Non-infectious NailsBackacheAnemiaEpilep sy and Recurrent SeizuresRen al CystDermatology Non-infectious NailsBackacheAnemiaEpilep sy and Recurrent SeizuresRen al CystDermatology Non-infectious NailsBackacheAnemiaEpilep sy and Recurrent SeizuresRen al CystDiabetes MellitusDiabetes MellitusDiabetes MellitusDiabetes MellitusDiabetes MellitusDiabetes MellitusDiabetes MellitusDiabetes MellitusDiabetes MellitusDiabetes MellitusDiabetes MellitusDiabetes MellitusDiabetes MellitusDiabetes MellitusDiabetes MellitusDiabetes MellitusDiabetes MellitusDiabetes MellitusDiabetes MellitusDiabetes MellitusDiabetes MellitusDiabetes MellitusDiabetes MellitusDiabetes MellitusDepressionDiabete s MellitusDepressionDiabete s MellitusDepressionDiabete s MellitusDepressionDiabete s MellitusDepressionDiabete s MellitusDepressionDiabete s MellitusDepressionDiabete s MellitusDepressionDiabete s MellitusDepressionDiabete s MellitusDepressionDiabete s MellitusDepressionDiabete s MellitusDepressionDiabete s MellitusDepressionDiabete s MellitusDepressionDiabete s Mellitus Depression Depression Depression Depression Depression Depression Depression Depression Depression Depression Depression Depression Depression Depression Depression Depression Depression Depression Depression Depression Depression Depression Depression Depression Dermatology Non-infectious Nails Backache Anemia Epilepsy and Recurrent Seizures Renal Cyst Dermatology Non-infectious Nails Backache Anemia Epilepsy and Recurrent Seizures Renal Cyst Dermatology Non-infectious Nails Backache Anemia Epilepsy and Recurrent Seizures Renal Cyst Dermatology Non-infectious Nails Backache Anemia Epilepsy and Recurrent Seizures Renal Cyst Dermatology Non-infectious Nails Backache Anemia Epilepsy and Recurrent Seizures Renal Cyst Dermatology Non-infectious Nails Backache Anemia Epilepsy and Recurrent Seizures Renal Cyst Dermatology Non-infectious Nails Backache Anemia Epilepsy and Recurrent Seizures Renal Cyst Dermatology Non-infectious Nails Backache Anemia Epilepsy and Recurrent Seizures Renal Cyst Dermatology Non-infectious Nails Backache Anemia Epilepsy and Recurrent Seizures Renal Cyst Dermatology Non-infectious Nails Backache Anemia Epilepsy and Recurrent Seizures Renal Cyst Dermatology Non-infectious Nails Backache Anemia Epilepsy and Recurrent Seizures Renal Cyst Dermatology Non-infectious Nails Backache Anemia Epilepsy and Recurrent Seizures Renal Cyst Dermatology Non-infectious Nails Backache Anemia Epilepsy and Recurrent Seizures Renal Cyst Dermatology Non-infectious Nails Backache Anemia Epilepsy and Recurrent Seizures Renal Cyst Dermatology Non-infectious Nails Backache Anemia Epilepsy and Recurrent Seizures Renal Cyst Dermatology Non-infectious Nails Backache Anemia Epilepsy and Recurrent Seizures Renal Cyst Dermatology Non-infectious Nails Backache Anemia Epilepsy and Recurrent Seizures Renal Cyst Dermatology Non-infectious Nails Backache Anemia Epilepsy and Recurrent Seizures Renal Cyst Dermatology Non-infectious Nails Backache Anemia Epilepsy and Recurrent Seizures Renal Cyst Dermatology Non-infectious Nails Backache Anemia Epilepsy and Recurrent Seizures Renal Cyst Dermatology Non-infectious Nails Backache Anemia Epilepsy and Recurrent Seizures Renal Cyst Dermatology Non-infectious Nails Backache Anemia Epilepsy and Recurrent Seizures Renal Cyst Dermatology Non-infectious Nails Backache Anemia Epilepsy and Recurrent Seizures Renal Cyst Dermatology Non-infectious Nails Backache Anemia Epilepsy and Recurrent Seizures Renal Cyst Dermatology Non-infectious Nails Backache Anemia Epilepsy and Recurrent Seizures Renal Cyst Dermatology Non-infectious Nails Backache Anemia Epilepsy and Recurrent Seizures Renal Cyst Dermatology Non-infectious Nails Backache Anemia Epilepsy and Recurrent Seizures Renal Cyst Dermatology Non-infectious Nails Backache Anemia Epilepsy and Recurrent Seizures Renal Cyst Dermatology Non-infectious Nails Backache Anemia Epilepsy and Recurrent Seizures Renal Cyst Dermatology Non-infectious Nails Backache Anemia Epilepsy and Recurrent Seizures Renal Cyst Dermatology Non-infectious Nails Backache Anemia Epilepsy and Recurrent Seizures Renal Cyst Dermatology Non-infectious Nails Backache Anemia Epilepsy and Recurrent Seizures Renal Cyst Dermatology Non-infectious Nails Backache Anemia Epilepsy and Recurrent Seizures Renal Cyst Dermatology Non-infectious Nails Backache Anemia Epilepsy and Recurrent Seizures Renal Cyst Dermatology Non-infectious Nails Backache Anemia Epilepsy and Recurrent Seizures Renal Cyst Dermatology Non-infectious Nails Backache Anemia Epilepsy and Recurrent Seizures Renal Cyst Dermatology Non-infectious Nails Backache Anemia Epilepsy and Recurrent Seizures Renal Cyst Dermatology Non-infectious Nails Backache Anemia Epilepsy and Recurrent Seizures Renal Cyst Diabetes Mellitus Diabetes Mellitus Diabetes Mellitus Diabetes Mellitus Diabetes Mellitus Diabetes Mellitus Diabetes Mellitus Diabetes Mellitus Diabetes Mellitus Diabetes Mellitus Diabetes Mellitus Diabetes Mellitus Diabetes Mellitus Diabetes Mellitus Diabetes Mellitus Diabetes Mellitus Diabetes Mellitus Diabetes Mellitus Diabetes Mellitus Diabetes Mellitus Diabetes Mellitus Diabetes Mellitus Diabetes Mellitus Diabetes Mellitus Depression Diabetes Mellitus Depression Diabetes Mellitus Depression Diabetes Mellitus Depression Diabetes Mellitus Depression Diabetes Mellitus Depression Diabetes Mellitus Depression Diabetes Mellitus Depression Diabetes Mellitus Depression Diabetes Mellitus Depression Diabetes Mellitus Depression Diabetes Mellitus Depression Diabetes Mellitus Depression Diabetes Mellitus Depression Diabetes Mellitus OutpatientOFFICE/OUTPATIENT Attender: Adolfo Russell 09/28/2018 NEXTGEN VISIT, [facility] 01:47[facility]00 [facility] Twyla Portillo 09/28/2018 Medical 01:47:00 PM Center) EDT Outpatient<td Attender: Wu 09/13/2018 [facility] ID="encounterTypeDescription [facility] 11:00:00 AM pidemia (Bruin [id number]">WALKINS</td><td>[facility] EDT - [facility] 09/13/2018 y and Health [facility]</td><td>Wu 01:43:15 PM [facility] Cent er) [facility] EDT Center</td><td>09/13/2018</t Seizure d><td><content sUrinar ID="[id number] y Tract ">Diabetes Infecti Mellitus</content>, <content onOverw ID="[id number] eightHy ">Overweight</content>, perlipi <content demiaEp ID="[id number] ilepsy ">Urinary Tract and Infection</content>, Recurre <content nt ID="[id number] Seizure ">Epilepsy and Recurrent sUrinar Seizures</content>, <content y Tract ID="[id number] Infecti ">Hypertension onOverw (systemic)</content>, eightHy <content perlipi ID="[id number] demiaEp ">Hyperlipidemia</content></ ilepsy td> and Recurre nt Seizure sUrinar y Tract Infecti onOverw eightHy perlipi demiaEp ilepsy and Recurre nt Seizure sUrinar y Tract Infecti onOverw eightHy perlipi demiaEp ilepsy and Recurre nt Seizure sUrinar y Tract Infecti onOverw eightHy perlipi demiaEp ilepsy and Recurre nt Seizure sUrinar y Tract Infecti onOverw eightHy perlipi demiaEp ilepsy and Recurre nt Seizure sUrinar y Tract Infecti onOverw eightHy perlipi demiaEp ilepsy and Recurre nt Seizure sUrinar y Tract Infecti onOverw eightHy perlipi demiaEp ilepsy and Recurre nt Seizure sUrinar y Tract Infecti onOverw eightHy perlipi demiaEp ilepsy and Recurre nt Seizure sUrinar y Tract Infecti onOverw eightHy perlipi demiaEp ilepsy and Recurre nt Seizure sUrinar y Tract Infecti onOverw eightHy perlipi demiaEp ilepsy and Recurre nt Seizure sUrinar y Tract Infecti onOverw eightHy perlipi demiaEp ilepsy and Recurre nt Seizure sUrinar y Tract Infecti onOverw eightHy perlipi demiaEp ilepsy and Recurre nt Seizure sUrinar y Tract Infecti onOverw eightHy perlipi demiaEp ilepsy and Recurre nt Seizure sUrinar y Tract Infecti onOverw eightHy perlipi demiaEp ilepsy and Recurre nt Seizure sUrinar y Tract Infecti onOverw eightHy perlipi demiaEp ilepsy and Recurre nt Seizure sUrinar y Tract Infecti onOverw eightHy perlipi demiaEp ilepsy and Recurre nt Seizure sUrinar y Tract Infecti onOverw eightHy perlipi demiaEp ilepsy and Recurre nt Seizure sUrinar y Tract Infecti onOverw eightHy perlipi demiaEp ilepsy and Recurre nt Seizure sUrinar y Tract Infecti onOverw eightHy perlipi demiaEp ilepsy and Recurre nt Seizure sUrinar y Tract Infecti onOverw eightHy perlipi demiaEp ilepsy and Recurre nt Seizure sUrinar y Tract Infecti onOverw eightHy perlipi demiaEp ilepsy and Recurre nt Seizure sUrinar y Tract Infecti onOverw eightHy perlipi demiaEp ilepsy and Recurre nt Seizure sUrinar y Tract Infecti onOverw eightHy perlipi demiaEp ilepsy and Recurre nt Seizure sUrinar y Tract Infecti onOverw eightHy perlipi demiaEp ilepsy and Recurre nt Seizure sUrinar y Tract Infecti onOverw eightHy perlipi demiaEp ilepsy and Recurre nt Seizure sUrinar y Tract Infecti onOverw eightHy perlipi demiaEp ilepsy and Recurre nt Seizure sUrinar y Tract Infecti onOverw eightHy perlipi demiaEp ilepsy and Recurre nt Seizure sUrinar y Tract Infecti onOverw eightHy perlipi demiaEp ilepsy and Recurre nt Seizure sUrinar y Tract Infecti onOverw eightHy perlipi demiaEp ilepsy and Recurre nt Seizure sUrinar y Tract Infecti onOverw eightHy perlipi demiaEp ilepsy and Recurre nt Seizure sUrinar y Tract Infecti onOverw eightHy perlipi demiaEp ilepsy and Recurre nt Seizure sUrinar y Tract Infecti onOverw eightHy perlipi demiaEp ilepsy and Recurre nt Seizure sUrinar y Tract Infecti onOverw eightHy perlipi demiaEp ilepsy and Recurre nt Seizure sUrinar y Tract Infecti onOverw eightHy perlipi demiaEp ilepsy and Recurre nt Seizure sUrinar y Tract Infecti onOverw eightHy perlipi demiaEp ilepsy and Recurre nt Seizure sUrinar y Tract Infecti onOverw eightHy perlipi demiaEp ilepsy and Recurre nt Seizure sUrinar y Tract Infecti onOverw eightHy perlipi demiaEp ilepsy and Recurre nt Seizure sUrinar y Tract Infecti onOverw eightHy pertens ion (system ic)Diab etes Mellitu sHypert ension (system ic)Diab etes Mellitu sHypert ension (system ic)Diab etes Mellitu sHypert ension (system ic)Diab etes Mellitu sHypert ension (system ic)Diab etes Mellitu sHypert ension (system ic)Diab etes Mellitu sHypert ension (system ic)Diab etes Mellitu sHypert ension (system ic)Diab etes Mellitu sHypert ension (system ic)Diab etes Mellitu sHypert ension (system ic)Diab etes Mellitu sHypert ension (system ic)Diab etes Mellitu sHypert ension (system ic)Diab etes Mellitu sHypert ension (system ic)Diab etes Mellitu sHypert ension (system ic)Diab etes Mellitu sHypert ension (system ic)Diab etes Mellitu sHypert ension (system ic)Diab etes Mellitu sHypert ension (system ic)Diab etes Mellitu sHypert ension (system ic)Diab etes Mellitu sHypert ension (system ic)Diab etes Mellitu sHypert ension (system ic)Diab etes Mellitu sHypert ension (system ic)Diab etes Mellitu sHypert ension (system ic)Diab etes Mellitu sHypert ension (system ic)Diab etes Mellitu sHypert ension (system ic)Diab etes Mellitu sHypert ension (system ic)Diab etes Mellitu sHypert ension (system ic)Diab etes Mellitu sHypert ension (system ic)Diab etes Mellitu sHypert ension (system ic)Diab etes Mellitu sHypert ension (system ic)Diab etes Mellitu sHypert ension (system ic)Diab etes Mellitu sHypert ension (system ic)Diab etes Mellitu sHypert ension (system ic)Diab etes Mellitu sHypert ension (system ic)Diab etes Mellitu sHypert ension (system ic)Diab etes Mellitu sHypert ension (system ic)Diab etes Mellitu sHypert ension (system ic)Diab etes Mellitu sHypert ension (system ic)Diab etes Mellitu sHypert ension (system ic)Diab etes Mellitu sHypert ension (system ic)Diab etes Mellitu s Hyperlipidemia Epilepsy and Recurrent Seizures Urinary Tract Infection Overweight Hyperlipidemia Epilepsy and Recurrent Seizures Urinary Tract Infection Overweight Hyperlipidemia Epilepsy and Recurrent Seizures Urinary Tract Infection Overweight Hyperlipidemia Epilepsy and Recurrent Seizures Urinary Tract Infection Overweight Hyperlipidemia Epilepsy and Recurrent Seizures Urinary Tract Infection Overweight Hyperlipidemia Epilepsy and Recurrent Seizures Urinary Tract Infection Overweight Hyperlipidemia Epilepsy and Recurrent Seizures Urinary Tract Infection Overweight Hyperlipidemia Epilepsy and Recurrent Seizures Urinary Tract Infection Overweight Hyperlipidemia Epilepsy and Recurrent Seizures Urinary Tract Infection Overweight Hyperlipidemia Epilepsy and Recurrent Seizures Urinary Tract Infection Overweight Hyperlipidemia Epilepsy and Recurrent Seizures Urinary Tract Infection Overweight Hyperlipidemia Epilepsy and Recurrent Seizures Urinary Tract Infection Overweight Hyperlipidemia Epilepsy and Recurrent Seizures Urinary Tract Infection Overweight Hyperlipidemia Epilepsy and Recurrent Seizures Urinary Tract Infection Overweight Hyperlipidemia Epilepsy and Recurrent Seizures Urinary Tract Infection Overweight Hyperlipidemia Epilepsy and Recurrent Seizures Urinary Tract Infection Overweight Hyperlipidemia Epilepsy and Recurrent Seizures Urinary Tract Infection Overweight Hyperlipidemia Epilepsy and Recurrent Seizures Urinary Tract Infection Overweight Hyperlipidemia Epilepsy and Recurrent Seizures Urinary Tract Infection Overweight Hyperlipidemia Epilepsy and Recurrent Seizures Urinary Tract Infection Overweight Hyperlipidemia Epilepsy and Recurrent Seizures Urinary Tract Infection Overweight Hyperlipidemia Epilepsy and Recurrent Seizures Urinary Tract Infection Overweight Hyperlipidemia Epilepsy and Recurrent Seizures Urinary Tract Infection Overweight Hyperlipidemia Epilepsy and Recurrent Seizures Urinary Tract Infection Overweight Hyperlipidemia Epilepsy and Recurrent Seizures Urinary Tract Infection Overweight Hyperlipidemia Epilepsy and Recurrent Seizures Urinary Tract Infection Overweight Hyperlipidemia Epilepsy and Recurrent Seizures Urinary Tract Infection Overweight Hyperlipidemia Epilepsy and Recurrent Seizures Urinary Tract Infection Overweight Hyperlipidemia Epilepsy and Recurrent Seizures Urinary Tract Infection Overweight Hyperlipidemia Epilepsy and Recurrent Seizures Urinary Tract Infection Overweight Hyperlipidemia Epilepsy and Recurrent Seizures Urinary Tract Infection Overweight Hyperlipidemia Epilepsy and Recurrent Seizures Urinary Tract Infection Overweight Hyperlipidemia Epilepsy and Recurrent Seizures Urinary Tract Infection Overweight Hyperlipidemia Epilepsy and Recurrent Seizures Urinary Tract Infection Overweight Hyperlipidemia Epilepsy and Recurrent Seizures Urinary Tract Infection Overweight Hyperlipidemia Epilepsy and Recurrent Seizures Urinary Tract Infection Overweight Hyperlipidemia Epilepsy and Recurrent Seizures Urinary Tract Infection Overweight Hyperlipidemia Epilepsy and Recurrent Seizures Urinary Tract Infection Overweight Hyperlipidemia Epilepsy and Recurrent Seizures Urinary Tract Infection Overweight Hypertension (systemic) Diabetes Mellitus Hypertension (systemic) Diabetes Mellitus Hypertension (systemic) Diabetes Mellitus Hypertension (systemic) Diabetes Mellitus Hypertension (systemic) Diabetes Mellitus Hypertension (systemic) Diabetes Mellitus Hypertension (systemic) Diabetes Mellitus Hypertension (systemic) Diabetes Mellitus Hypertension (systemic) Diabetes Mellitus Hypertension (systemic) Diabetes Mellitus Hypertension (systemic) Diabetes Mellitus Hypertension (systemic) Diabetes Mellitus Hypertension (systemic) Diabetes Mellitus Hypertension (systemic) Diabetes Mellitus Hypertension (systemic) Diabetes Mellitus Hypertension (systemic) Diabetes Mellitus Hypertension (systemic) Diabetes Mellitus Hypertension (systemic) Diabetes Mellitus Hypertension (systemic) Diabetes Mellitus Hypertension (systemic) Diabetes Mellitus Hypertension (systemic) Diabetes Mellitus Hypertension (systemic) Diabetes Mellitus Hypertension (systemic) Diabetes Mellitus Hypertension (systemic) Diabetes Mellitus Hypertension (systemic) Diabetes Mellitus Hypertension (systemic) Diabetes Mellitus Hypertension (systemic) Diabetes Mellitus Hypertension (systemic) Diabetes Mellitus Hypertension (systemic) Diabetes Mellitus Hypertension (systemic) Diabetes Mellitus Hypertension (systemic) Diabetes Mellitus Hypertension (systemic) Diabetes Mellitus Hypertension (systemic) Diabetes Mellitus Hypertension (systemic) Diabetes Mellitus Hypertension (systemic) Diabetes Mellitus Hypertension (systemic) Diabetes Mellitus Hypertension (systemic) Diabetes Mellitus Hypertension (systemic) Diabetes Mellitus Hypertension (systemic) Diabetes Mellitus Outpatient<td Attender: Wu 09/13/2018 [facility] ID="[id number]">[facility]IENT [facility] 10:38 :00 AM (Annia King [employer]VOCACY</td><td>[facility] EDT - [facility]</td><td>[facility] 2018 Health Center</td><td>09/13/2018</td><td></td> 11:59:0 0 PM Center) EDT Attender: Mental 09/09/2018 [facility] 02:33:00 PM ([facility] 09/09/2018 Medical 02:33:00 PM Center) EDT Outpatient<td Attender: Wu 09/01/2018 [facility] ID="[id number]">*No [facility] 04:28:00 PM (Annia King Show*</td><td[facility]</td><td>[facility] 09/01/2018 Health Center</td><td>09/01/2018</td><td></td> 11:59:0 0 PM Center) EDT OutpatientOFFICE/OUTPATIENT VISIT, EST Attender: Mental 09/01/[address] [facility] 01:27:00 PM ([facility] nder: 08/31/2018 Medical Isaiah 01:27:00 PM Center) [place] EDT Outpatient<td Attender: 08/30/2018 [facility] ID="[id number]">*[facility] 09:2 3:00 AM (Annia Carter*</td><td>[employer]</td><td> AGYEPONG EDT - [facility] [employer] 08/30/2018 Health </td><td>08/30/2018</td><td></td> 11:59:00 PM Center) EDT Outpatient<td Attender: Wu 08/26/2018 T [facility] ID="[id number]">[place]ALK[place]< [facility] 12:0 0:00 PM h (Bruin /td><td>[facility]</td><td[facility] 08/26/2018 o Health Center</td><td>08/26/2018</td><td><content 01:5 4:52 PM [facility]) ID="[id number]">Arthralgia - EDT b Ankle / Foot Right</content>, <content o ID="[id number]">Arthralgia - c Right Ankle</content>, <content y ID="[id number]">Thrombocytop t enia</content>, <content o ID="[id number]">Allergic p Rhinitis</content>, <content e ID="[id number]">Overweight</ n content></td> i a A r t h r a l g i a - R i g h t A n k l e A r t h r a l g i a - A n k l e / F o o t R i g h t O v e r w e i g h t A l l e r g i c R h i n i t i s T h r o m b o c y t o p e n i a A r t h r a l g i a - R i g h t A n k l e A r t h r a l g i a - A n k l e / F o o t R i g h t O v e r w e i g h t A l l e r g i c R h i n i t i s T h r o m b o c y t o p e n i a A r t h r a l g i a - R i g h t A n k l e A r t h r a l g i a - A n k l e / F o o t R i g h t O v e r w e i g h t A l l e r g i c R h i n i t i s T h r o m b o c y t o p e n i a A r t h r a l g i a - R i g h t A n k l e A r t h r a l g i a - A n k l e / F o o t R i g h t O v e r w e i g h t A l l e r g i c R h i n i t i s T h r o m b o c y t o p e n i a A r t h r a l g i a - R i g h t A n k l e A r t h r a l g i a - A n k l e / F o o t R i g h t O v e r w e i g h t A l l e r g i c R h i n i t i s T h r o m b o c y t o p e n i a A r t h r a l g i a - R i g h t A n k l e A r t h r a l g i a - A n k l e / F o o t R i g h t O v e r w e i g h t A l l e r g i c R h i n i t i s T h r o m b o c y t o p e n i a A r t h r a l g i a - R i g h t A n k l e A r t h r a l g i a - A n k l e / F o o t R i g h t O v e r w e i g h t A l l e r g i c R h i n i t i s T h r o m b o c y t o p e n i a A r t h r a l g i a - R i g h t A n k l e A r t h r a l g i a - A n k l e / F o o t R i g h t O v e r w e i g h t A l l e r g i c R h i n i t i s T h r o m b o c y t o p e n i a A r t h r a l g i a - R i g h t A n k l e A r t h r a l g i a - A n k l e / F o o t R i g h t O v e r w e i g h t A l l e r g i c R h i n i t i s T h r o m b o c y t o p e n i a A r t h r a l g i a - R i g h t A n k l e A r t h r a l g i a - A n k l e / F o o t R i g h t O v e r w e i g h t A l l e r g i c R h i n i t i s T h r o m b o c y t o p e n i a A r t h r a l g i a - R i g h t A n k l e A r t h r a l g i a - A n k l e / F o o t R i g h t O v e r w e i g h t A l l e r g i c R h i n i t i s T h r o m b o c y t o p e n i a A r t h r a l g i a - R i g h t A n k l e A r t h r a l g i a - A n k l e / F o o t R i g h t O v e r w e i g h t A l l e r g i c R h i n i t i s T h r o m b o c y t o p e n i a A r t h r a l g i a - R i g h t A n k l e A r t h r a l g i a - A n k l e / F o o t R i g h t O v e r w e i g h t A l l e r g i c R h i n i t i s T h r o m b o c y t o p e n i a A r t h r a l g i a - R i g h t A n k l e A r t h r a l g i a - A n k l e / F o o t R i g h t O v e r w e i g h t A l l e r g i c R h i n i t i s T h r o m b o c y t o p e n i a A r t h r a l g i a - R i g h t A n k l e A r t h r a l g i a - A n k l e / F o o t R i g h t O v e r w e i g h t A l l e r g i c R h i n i t i s T h r o m b o c y t o p e n i a A r t h r a l g i a - R i g h t A n k l e A r t h r a l g i a - A n k l e / F o o t R i g h t O v e r w e i g h t A l l e r g i c R h i n i t i s T h r o m b o c y t o p e n i a A r t h r a l g i a - R i g h t A n k l e A r t h r a l g i a - A n k l e / F o o t R i g h t O v e r w e i g h t A l l e r g i c R h i n i t i s T h r o m b o c y t o p e n i a A r t h r a l g i a - R i g h t A n k l e A r t h r a l g i a - A n k l e / F o o t R i g h t O v e r w e i g h t A l l e r g i c R h i n i t i s T h r o m b o c y t o p e n i a A r t h r a l g i a - R i g h t A n k l e A r t h r a l g i a - A n k l e / F o o t R i g h t O v e r w e i g h t A l l e r g i c R h i n i t i s T h r o m b o c y t o p e n i a A r t h r a l g i a - R i g h t A n k l e A r t h r a l g i a - A n k l e / F o o t R i g h t O v e r w e i g h t A l l e r g i c R h i n i t i s T h r o m b o c y t o p e n i a A r t h r a l g i a - R i g h t A n k l e A r t h r a l g i a - A n k l e / F o o t R i g h t O v e r w e i g h t A l l e r g i c R h i n i t i s T h r o m b o c y t o p e n i a A r t h r a l g i a - R i g h t A n k l e A r t h r a l g i a - A n k l e / F o o t R i g h t O v e r w e i g h t A l l e r g i c R h i n i t i s T h r o m b o c y t o p e n i a A r t h r a l g i a - R i g h t A n k l e A r t h r a l g i a - A n k l e / F o o t R i g h t O v e r w e i g h t A l l e r g i c R h i n i t i s T h r o m b o c y t o p e n i a A r t h r a l g i a - R i g h t A n k l e A r t h r a l g i a - A n k l e / F o o t R i g h t O v e r w e i g h t A l l e r g i c R h i n i t i s T h r o m b o c y t o p e n i a A r t h r a l g i a - R i g h t A n k l e A r t h r a l g i a - A n k l e / F o o t R i g h t O v e r w e i g h t A l l e r g i c R h i n i t i s T h r o m b o c y t o p e n i a A r t h r a l g i a - R i g h t A n k l e A r t h r a l g i a - A n k l e / F o o t R i g h t O v e r w e i g h t A l l e r g i c R h i n i t i s T h r o m b o c y t o p e n i a A r t h r a l g i a - R i g h t A n k l e A r t h r a l g i a - A n k l e / F o o t R i g h t O v e r w e i g h t A l l e r g i c R h i n i t i s T h r o m b o c y t o p e n i a A r t h r a l g i a - R i g h t A n k l e A r t h r a l g i a - A n k l e / F o o t R i g h t O v e r w e i g h t A l l e r g i c R h i n i t i s T h r o m b o c y t o p e n i a A r t h r a l g i a - R i g h t A n k l e A r t h r a l g i a - A n k l e / F o o t R i g h t O v e r w e i g h t A l l e r g i c R h i n i t i s T h r o m b o c y t o p e n i a A r t h r a l g i a - R i g h t A n k l e A r t h r a l g i a - A n k l e / F o o t R i g h t O v e r w e i g h t A l l e r g i c R h i n i t i s T h r o m b o c y t o p e n i a A r t h r a l g i a - R i g h t A n k l e A r t h r a l g i a - A n k l e / F o o t R i g h t O v e r w e i g h t A l l e r g i c R h i n i t i s T h r o m b o c y t o p e n i a A r t h r a l g i a - R i g h t A n k l e A r t h r a l g i a - A n k l e / F o o t R i g h t O v e r w e i g h t A l l e r g i c R h i n i t i s T h r o m b o c y t o p e n i a A r t h r a l g i a - R i g h t A n k l e A r t h r a l g i a - A n k l e / F o o t R i g h t O v e r w e i g h t A l l e r g i c R h i n i t i s T h r o m b o c y t o p e n i a A r t h r a l g i a - R i g h t A n k l e A r t h r a l g i a - A n k l e / F o o t R i g h t O v e r w e i g h t A l l e r g i c R h i n i t i s T h r o m b o c y t o p e n i a A r t h r a l g i a - R i g h t A n k l e A r t h r a l g i a - A n k l e / F o o t R i g h t O v e r w e i g h t A l l e r g i c R h i n i t i s T h r o m b o c y t o p e n i a A r t h r a l g i a - R i g h t A n k l e A r t h r a l g i a - A n k l e / F o o t R i g h t O v e r w e i g h t A l l e r g i c R h i n i t i s T h r o m b o c y t o p e n i a A r t h r a l g i a - R i g h t A n k l e A r t h r a l g i a - A n k l e / F o o t R i g h t O v e r w e i g h t A l l e r g i c R h i n i t i s T h r o m b o c y t o p e n i a A r t h r a l g i a - R i g h t A n k l e A r t h r a l g i a - A n k l e / F o o t R i g h t O v e r w e i g h t A l l e r g i c R h i n i t i s T h r o m b o c y t o p e n i a A r t h r a l g i a - R i g h t A n k l e A r t h r a l g i a - A n k l e / F o o t R i g h t O v e r w e i g h t A l l e r g i c R h i n i t i s T h r o m b o c y t o p e n i a A r t h r a l g i a - R i g h t A n k l e A r t h r a l g i a - A n k l e / F o o t R i g h t O v e r w e i g h t A l l e r g i c R h i n i t i s T h r o m b o c y t o p e n i a A r t h r a l g i a - R i g h t A n k l e A r t h r a l g i a - A n k l e / F o o t R i g h t O v e r w e i g h t A l l e r g i c R h i n i t i s O v e r w e i g h t A l l e r g i c R h i n i t i s T h r o m b o c y t o p e n i a A r t h r a l g i a - R i g h t A n k l e A r t h r a l g i a - A n k l e / F o o t R i g h t O v e r w e i g h t A l l e r g i c R h i n i t i s T h r o m b o c y t o p e n i a A r t h r a l g i a - R i g h t A n k l e A r t h r a l g i a - A n k l e / F o o t R i g h t Thrombocytopenia Arthralgia - Right Ankle Arthralgia - Ankle / Foot Right Overweight Allergic Rhinitis Thrombocytopenia Arthralgia - Right Ankle Arthralgia - Ankle / Foot Right Overweight Allergic Rhinitis Thrombocytopenia Arthralgia - Right Ankle Arthralgia - Ankle / Foot Right Overweight Allergic Rhinitis Thrombocytopenia Arthralgia - Right Ankle Arthralgia - Ankle / Foot Right Overweight Allergic Rhinitis Thrombocytopenia Arthralgia - Right Ankle Arthralgia - Ankle / Foot Right Overweight Allergic Rhinitis Thrombocytopenia Arthralgia - Right Ankle Arthralgia - Ankle / Foot Right Overweight Allergic Rhinitis Thrombocytopenia Arthralgia - Right Ankle Arthralgia - Ankle / Foot Right Overweight Allergic Rhinitis Thrombocytopenia Arthralgia - Right Ankle Arthralgia - Ankle / Foot Right Overweight Allergic Rhinitis Thrombocytopenia Arthralgia - Right Ankle Arthralgia - Ankle / Foot Right Overweight Allergic Rhinitis Thrombocytopenia Arthralgia - Right Ankle Arthralgia - Ankle / Foot Right Overweight Allergic Rhinitis Thrombocytopenia Arthralgia - Right Ankle Arthralgia - Ankle / Foot Right Overweight Allergic Rhinitis Thrombocytopenia Arthralgia - Right Ankle Arthralgia - Ankle / Foot Right Overweight Allergic Rhinitis Thrombocytopenia Arthralgia - Right Ankle Arthralgia - Ankle / Foot Right Overweight Allergic Rhinitis Thrombocytopenia Arthralgia - Right Ankle Arthralgia - Ankle / Foot Right Overweight Allergic Rhinitis Thrombocytopenia Arthralgia - Right Ankle Arthralgia - Ankle / Foot Right Overweight Allergic Rhinitis Thrombocytopenia Arthralgia - Right Ankle Arthralgia - Ankle / Foot Right Overweight Allergic Rhinitis Thrombocytopenia Arthralgia - Right Ankle Arthralgia - Ankle / Foot Right Overweight Allergic Rhinitis Thrombocytopenia Arthralgia - Right Ankle Arthralgia - Ankle / Foot Right Overweight Allergic Rhinitis Thrombocytopenia Arthralgia - Right Ankle Arthralgia - Ankle / Foot Right Overweight Allergic Rhinitis Thrombocytopenia Arthralgia - Right Ankle Arthralgia - Ankle / Foot Right Overweight Allergic Rhinitis Thrombocytopenia Arthralgia - Right Ankle Arthralgia - Ankle / Foot Right Overweight Allergic Rhinitis Thrombocytopenia Arthralgia - Right Ankle Arthralgia - Ankle / Foot Right Overweight Allergic Rhinitis Thrombocytopenia Arthralgia - Right Ankle Arthralgia - Ankle / Foot Right Overweight Allergic Rhinitis Thrombocytopenia Arthralgia - Right Ankle Arthralgia - Ankle / Foot Right Overweight Allergic Rhinitis Thrombocytopenia Arthralgia - Right Ankle Arthralgia - Ankle / Foot Right Overweight Allergic Rhinitis Thrombocytopenia Arthralgia - Right Ankle Arthralgia - Ankle / Foot Right Overweight Allergic Rhinitis Thrombocytopenia Arthralgia - Right Ankle Arthralgia - Ankle / Foot Right Overweight Allergic Rhinitis Thrombocytopenia Arthralgia - Right Ankle Arthralgia - Ankle / Foot Right Overweight Allergic Rhinitis Thrombocytopenia Arthralgia - Right Ankle Arthralgia - Ankle / Foot Right Overweight Allergic Rhinitis Thrombocytopenia Arthralgia - Right Ankle Arthralgia - Ankle / Foot Right Overweight Allergic Rhinitis Thrombocytopenia Arthralgia - Right Ankle Arthralgia - Ankle / Foot Right Overweight Allergic Rhinitis Thrombocytopenia Arthralgia - Right Ankle Arthralgia - Ankle / Foot Right Overweight Allergic Rhinitis Thrombocytopenia Arthralgia - Right Ankle Arthralgia - Ankle / Foot Right Overweight Allergic Rhinitis Thrombocytopenia Arthralgia - Right Ankle Arthralgia - Ankle / Foot Right Overweight Allergic Rhinitis Thrombocytopenia Arthralgia - Right Ankle Arthralgia - Ankle / Foot Right Overweight Allergic Rhinitis Thrombocytopenia Arthralgia - Right Ankle Arthralgia - Ankle / Foot Right Overweight Allergic Rhinitis Thrombocytopenia Arthralgia - Right Ankle Arthralgia - Ankle / Foot Right Overweight Allergic Rhinitis Thrombocytopenia Arthralgia - Right Ankle Arthralgia - Ankle / Foot Right Overweight Allergic Rhinitis Thrombocytopenia Arthralgia - Right Ankle Arthralgia - Ankle / Foot Right Overweight Allergic Rhinitis Thrombocytopenia Arthralgia - Right Ankle Arthralgia - Ankle / Foot Right Overweight Allergic Rhinitis Thrombocytopenia Arthralgia - Right Ankle Arthralgia - Ankle / Foot Right Overweight Allergic Rhinitis Overweight Allergic Rhinitis Thrombocytopenia Arthralgia - Right Ankle Arthralgia - Ankle / Foot Right Overweight Allergic Rhinitis Thrombocytopenia Arthralgia - Right Ankle Arthralgia - Ankle / Foot Right Outpatient<td Attender: Annia King 08/25/2018 CHAMBERINO ID="[id number]">*[facility] 12:3 1:00 PM (Annia King Update*</td><td[facility] </td><td>Annia Downs MD 08/25/2018 [facility] 11:59:00 PM Center) [place]</td><td>08/25/2018</td><td></td> EDT Outpatient<td Attender: Wu 08/17/2018 CHAMBERINO ID="[id number]">*[facility] 02:49:00 PM (Annia King Show*</td><td>LOULOU CHRISTIANSEN MD Health Center EDT - Neighborhood </td><td>[facility] 08/17/2018 Health Center</td><td>08/17/2018</td><td></td> 11:59:0 0 PM Center) EDT Outpatient 08/15/2018 [facility] 04:29:00 PM Medical EDT Center Attender: Mental Health 08/15/2018 [facility] 03:38:00 PM ([facility] 08/15/2018 Medical 03:38:00 PM Center) EDT Outpatient<td Attender: Wu 08/15/2018 RADHA ID="[id number]">*[facility] 11:47 :00 AM (Bruin *</td><td>[facility]T [facility]</td><td>[facility] 08/15/2018 Health Center</td><td>08/15/2018</td><td></td> 11:59:0 0 PM Center) EDT Outpatient 08/15/2018 [facility] 12:00:00 AM Medical EDT Center Outpatient<td Attender: Wu 08/12/2018 RADHA ID="[id number]">EKG</td [facility] 04:00 :00 PM (Bruin ><td>RONAL FLORES MD</td><td>Wu FLORES MD Health Center EDT - [facility] 08/12/2018 Health Center</td><td>08/12/2018</td><td></td> 11:59:0 0 PM Center) EDT Outpatient<td Attender: Wu 08/12/2018 E RADHA ID="[id number]">[facility] p (Bruin </td><td>[facility] EDT [facility]</td><td>[facility] 08/12/2018 Health Center</td><td>08/12/2018</td><td><[facility] 02:59 :59 PM e Center) t ID="[id number]">Epilepsy EDT p and Recurrent Seizures</content>, s <content y ID="[id number]">Hypertensio a n (systemic)</content></td> n d R e c u r r e n t S e i z u r e s E p i l e p s y a n d R e c u r r e n t S e i z u r e s E p i l e p s y a n d R e c u r r e n t S e i z u r e s E p i l e p s y a n d R e c u r r e n t S e i z u r e s E p i l e p s y a n d R e c u r r e n t S e i z u r e s E p i l e p s y a n d R e c u r r e n t S e i z u r e s E p i l e p s y a n d R e c u r r e n t S e i z u r e s E p i l e p s y a n d R e c u r r e n t S e i z u r e s E p i l e p s y a n d R e c u r r e n t S e i z u r e s E p i l e p s y a n d R e c u r r e n t S e i z u r e s E p i l e p s y a n d R e c u r r e n t S e i z u r e s E p i l e p s y a n d R e c u r r e n t S e i z u r e s E p i l e p s y a n d R e c u r r e n t S e i z u r e s E p i l e p s y a n d R e c u r r e n t S e i z u r e s E p i l e p s y a n d R e c u r r e n t S e i z u r e s E p i l e p s y a n d R e c u r r e n t S e i z u r e s E p i l e p s y a n d R e c u r r e n t S e i z u r e s E p i l e p s y a n d R e c u r r e n t S e i z u r e s E p i l e p s y a n d R e c u r r e n t S e i z u r e s E p i l e p s y a n d R e c u r r e n t S e i z u r e s E p i l e p s y a n d R e c u r r e n t S e i z u r e s E p i l e p s y a n d R e c u r r e n t S e i z u r e s E p i l e p s y a n d R e c u r r e n t S e i z u r e s E p i l e p s y a n d R e c u r r e n t S e i z u r e s E p i l e p s y a n d R e c u r r e n t S e i z u r e s E p i l e p s y a n d R e c u r r e n t S e i z u r e s E p i l e p s y a n d R e c u r r e n t S e i z u r e s E p i l e p s y a n d R e c u r r e n t S e i z u r e s E p i l e p s y a n d R e c u r r e n t S e i z u r e s E p i l e p s y a n d R e c u r r e n t S e i z u r e s E p i l e p s y a n d R e c u r r e n t S e i z u r e s E p i l e p s y a n d R e c u r r e n t S e i z u r e s E p i l e p s y a n d R e c u r r e n t S e i z u r e s E p i l e p s y a n d R e c u r r e n t S e i z u r e s E p i l e p s y a n d R e c u r r e n t S e i z u r e s E p i l e p s y a n d R e c u r r e n t S e i z u r e s E p i l e p s y a n d R e c u r r e n t S e i z u r e s E p i l e p s y a n d R e c u r r e n t S e i z u r e s E p i l e p s y a n d R e c u r r e n t S e i z u r e s E p i l e p s y a n d R e c u r r e n t S e i z u r e s E p i l e p s y a n d R e c u r r e n t S e i z u r e s E p i l e p s y a n d R e c u r r e n t S e i z u r e s E p i l e p s y a n d R e c u r r e n t S e i z u r e s E p i l e p s y a n d R e c u r r e n t S e i z u r e s E p i l e p s y a n d R e c u r r e n t S e i z u r e s E p i l e p s y a n d R e c u r r e n t S e i z u r e s E p i l e p s y a n d R e c u r r e n t S e i z u r e s E p i l e p s y a n d R e c u r r e n t S e i z u r e s H y p e r t e n s i o n ( s y s t e m i c ) H y p e r t e n s i o n ( s y s t e m i c ) H y p e r t e n s i o n ( s y s t e m i c ) H y p e r t e n s i o n ( s y s t e m i c ) H y p e r t e n s i o n ( s y s t e m i c ) H y p e r t e n s i o n ( s y s t e m i c ) H y p e r t e n s i o n ( s y s t e m i c ) H y p e r t e n s i o n ( s y s t e m i c ) H y p e r t e n s i o n ( s y s t e m i c ) H y p e r t e n s i o n ( s y s t e m i c ) H y p e r t e n s i o n ( s y s t e m i c ) H y p e r t e n s i o n ( s y s t e m i c ) H y p e r t e n s i o n ( s y s t e m i c ) H y p e r t e n s i o n ( s y s t e m i c ) H y p e r t e n s i o n ( s y s t e m i c ) H y p e r t e n s i o n ( s y s t e m i c ) H y p e r t e n s i o n ( s y s t e m i c ) H y p e r t e n s i o n ( s y s t e m i c ) H y p e r t e n s i o n ( s y s t e m i c ) H y p e r t e n s i o n ( s y s t e m i c ) H y p e r t e n s i o n ( s y s t e m i c ) H y p e r t e n s i o n ( s y s t e m i c ) H y p e r t e n s i o n ( s y s t e m i c ) H y p e r t e n s i o n ( s y s t e m i c ) H y p e r t e n s i o n ( s y s t e m i c ) H y p e r t e n s i o n ( s y s t e m i c ) H y p e r t e n s i o n ( s y s t e m i c ) H y p e r t e n s i o n ( s y s t e m i c ) H y p e r t e n s i o n ( s y s t e m i c ) H y p e r t e n s i o n ( s y s t e m i c ) H y p e r t e n s i o n ( s y s t e m i c ) H y p e r t e n s i o n ( s y s t e m i c ) H y p e r t e n s i o n ( s y s t e m i c ) H y p e r t e n s i o n ( s y s t e m i c ) H y p e r t e n s i o n ( s y s t e m i c ) H y p e r t e n s i o n ( s y s t e m i c ) H y p e r t e n s i o n ( s y s t e m i c ) H y p e r t e n s i o n ( s y s t e m i c ) H y p e r t e n s i o n ( s y s t e m i c ) H y p e r t e n s i o n ( s y s t e m i c ) H y p e r t e n s i o n ( s y s t e m i c ) H y p e r t e n s i o n ( s y s t e m i c ) H y p e r t e n s i o n ( s y s t e m i c ) H y p e r t e n s i o n ( s y s t e m i c ) H y p e r t e n s i o n ( s y s t e m i c ) H y p e r t e n s i o n ( s y s t e m i c ) H y p e r t e n s i o n ( s y s t e m i c ) H y p e r t e n s i o n ( s y s t e m i c ) Epilepsy and Recurrent Seizures Epilepsy and Recurrent Seizures Epilepsy and Recurrent Seizures Epilepsy and Recurrent Seizures Epilepsy and Recurrent Seizures Epilepsy and Recurrent Seizures Epilepsy and Recurrent Seizures Epilepsy and Recurrent Seizures Epilepsy and Recurrent Seizures Epilepsy and Recurrent Seizures Epilepsy and Recurrent Seizures Epilepsy and Recurrent Seizures Epilepsy and Recurrent Seizures Epilepsy and Recurrent Seizures Epilepsy and Recurrent Seizures Epilepsy and Recurrent Seizures Epilepsy and Recurrent Seizures Epilepsy and Recurrent Seizures Epilepsy and Recurrent Seizures Epilepsy and Recurrent Seizures Epilepsy and Recurrent Seizures Epilepsy and Recurrent Seizures Epilepsy and Recurrent Seizures Epilepsy and Recurrent Seizures Epilepsy and Recurrent Seizures Epilepsy and Recurrent Seizures Epilepsy and Recurrent Seizures Epilepsy and Recurrent Seizures Epilepsy and Recurrent Seizures Epilepsy and Recurrent Seizures Epilepsy and Recurrent Seizures Epilepsy and Recurrent Seizures Epilepsy and Recurrent Seizures Epilepsy and Recurrent Seizures Epilepsy and Recurrent Seizures Epilepsy and Recurrent Seizures Epilepsy and Recurrent Seizures Epilepsy and Recurrent Seizures Epilepsy and Recurrent Seizures Epilepsy and Recurrent Seizures Epilepsy and Recurrent Seizures Epilepsy and Recurrent Seizures Epilepsy and Recurrent Seizures Epilepsy and Recurrent Seizures Epilepsy and Recurrent Seizures Epilepsy and Recurrent Seizures Epilepsy and Recurrent Seizures Epilepsy and Recurrent Seizures Hypertension (systemic) Hypertension (systemic) Hypertension (systemic) Hypertension (systemic) Hypertension (systemic) Hypertension (systemic) Hypertension (systemic) Hypertension (systemic) Hypertension (systemic) Hypertension (systemic) Hypertension (systemic) Hypertension (systemic) Hypertension (systemic) Hypertension (systemic) Hypertension (systemic) Hypertension (systemic) Hypertension (systemic) Hypertension (systemic) Hypertension (systemic) Hypertension (systemic) Hypertension (systemic) Hypertension (systemic) Hypertension (systemic) Hypertension (systemic) Hypertension (systemic) Hypertension (systemic) Hypertension (systemic) Hypertension (systemic) Hypertension (systemic) Hypertension (systemic) Hypertension (systemic) Hypertension (systemic) Hypertension (systemic) Hypertension (systemic) Hypertension (systemic) Hypertension (systemic) Hypertension (systemic) Hypertension (systemic) Hypertension (systemic) Hypertension (systemic) Hypertension (systemic) Hypertension (systemic) Hypertension (systemic) Hypertension (systemic) Hypertension (systemic) Hypertension (systemic) Hypertension (systemic) Hypertension (systemic) Outpatient<td Attender: Wu 08/11/2018 [facility] CHAMBERINO ID="[id number]">WALKINS</td><td>[facility] 02:15:00 PM Non-infectious ([facility]</td><td>[facility] EDT - [facility]erm[facility]</td><td>08/11/2018</td><td><[facility] [place] 05/2018 Non-infectious Health ID="[id number]">Diabetes 02 :45:35 PM [facility] Center) Mellitus</content>, <content EDT Non-inf ectious ID="[id number]">Dermatology Non-infectious NailsA[facility]asis[facility] Nails</content>, <content Non-infect ious ID="[id number]">Atelectasis</content></td> NailsA[facility]asis[facility]erm[facility] Non-infectious NailsAtelectasisDermatolo gy Non-infectious NailsAtelectasisDermatolo gy Non-infectious NailsAtelectasisDermatolo gy Non-infectious NailsAtelectasisDermatolo gy Non-infectious NailsAtelectasisDermatolo gy Non-infectious NailsAtelectasisDermatolo gy Non-infectious NailsAtelectasisDermatolo gy Non-infectious NailsAtelectasisDermatolo gy Non-infectious NailsAtelectasisDermatolo gy Non-infectious NailsAtelectasisDermatolo gy Non-infectious NailsAtelectasisDermatolo gy Non-infectious NailsAtelectasisDermatolo gy Non-infectious NailsAtelectasisDermatolo gy Non-infectious NailsAtelectasisDermatolo gy Non-infectious NailsAtelectasisDermatolo gy Non-infectious NailsAtelectasisDermatolo gy Non-infectious NailsAtelectasisDermatolo gy Non-infectious NailsAtelectasisDermatolo gy Non-infectious NailsAtelectasisDermatolo gy Non-infectious NailsAtelectasisDermatolo gy Non-infectious NailsAtelectasisDermatolo gy Non-infectious NailsAtelectasisDermatolo gy Non-infectious NailsAtelectasisDermatolo gy Non-infectious NailsAtelectasisDermatolo gy Non-infectious NailsAtelectasisDermatolo gy Non-infectious NailsAtelectasisDermatolo gy Non-infectious NailsAtelectasisDermatolo gy Non-infectious NailsAtelectasisDermatolo gy Non-infectious NailsAtelectasisDermatolo gy Non-infectious NailsAtelectasisDermatolo gy Non-infectious NailsAtelectasisDermatolo gy Non-infectious NailsAtelectasisDermatolo gy Non-infectious NailsAtelectasisDermatolo gy Non-infectious NailsAtelectasisDermatolo gy Non-infectious NailsAtelectasisDermatolo gy Non-infectious NailsAtelectasisDermatolo gy Non-infectious NailsAtelectasisDermatolo gy Non-infectious NailsAtelectasisDermatolo gy Non-infectious NailsAtelectasisDermatolo gy Non-infectious NailsAtelectasisDermatolo gy Non-infectious NailsAtelectasisDermatolo gy Non-infectious NailsAtelectasisDermatolo gy Non-infectious NailsAtelectasisDermatolo gy Non-infectious NailsAtelectasisDermatolo gy Non-infectious NailsAtelectasisDermatolo gy Non-infectious NailsDiabe antonina MellitusDiabetes MellitusDiabetes MellitusDiabetes MellitusDiabetes MellitusDiabetes MellitusDiabetes MellitusDiabetes MellitusDiabetes MellitusDiabetes MellitusDiabetes MellitusDiabetes MellitusDiabetes MellitusDiabetes MellitusDiabetes MellitusDiabetes MellitusDiabetes MellitusDiabetes MellitusDiabetes MellitusDiabetes MellitusDiabetes MellitusDiabetes MellitusDiabetes MellitusDiabetes MellitusDiabetes MellitusDiabetes MellitusDiabetes MellitusDiabetes MellitusDiabetes MellitusDiabetes MellitusDiabetes MellitusDiabetes MellitusDiabetes MellitusDiabetes MellitusDiabetes MellitusDiabetes MellitusDiabetes MellitusDiabetes MellitusDiabetes MellitusDiabetes MellitusDiabetes MellitusDiabetes MellitusDiabetes MellitusDiabetes MellitusDiabetes MellitusDiabetes MellitusDiabetes MellitusDiabetes MellitusDiabetes MellitusDiabetes Mellitus [facility] Non-infectious Nails [facility] Non-infectious Nails [facility] Non-infectious Nails [facility] Non-infectious Nails [facility]asis [facility] Non-infectious Nails Ate[facility]asis Dermat[facility] Non-infectious Nails Ate[facility]asis Dermat[facility] Non-infectious Nails Atelectasis Derm[facility] Non-infectious Nails Atelectasis Dermat[facility] Non-infectious Nails Atelectasis Dermatology Non-infectious Nails Atelectasis Dermat[facility] Non-infectious Nails Atelectasis Derm[facility] Non-infectious Nails Ate[facility]asis Derm[facility] Non-infectious Nails Atelectasis Dermatology Non-infectious Nails Atelectasis Dermatology Non-infectious Nails Atelectasis Dermat[facility] Non-infectious Nails Atelectasis Dermatology Non-infectious Nails Atelectasis Dermatology Non-infectious Nails Atelectasis Dermatology Non-infectious Nails Atelectasis Dermatology Non-infectious Nails Atelectasis Dermatology Non-infectious Nails Atelectasis Dermatology Non-infectious Nails Atelectasis Dermatology Non-infectious Nails Atelectasis Dermatology Non-infectious Nails Atelectasis Dermatology Non-infectious Nails Atelectasis Dermatology Non-infectious Nails Atelectasis Dermatology Non-infectious Nails Atelectasis Dermatology Non-infectious Nails Atelectasis Dermatology Non-infectious Nails Atelectasis Dermatology Non-infectious Nails Atelectasis Dermatology Non-infectious Nails Atelectasis Dermatology Non-infectious Nails Atelectasis Dermatology Non-infectious Nails Atelectasis Dermat[facility] Non-infectious Nails Atelectasis Dermat[facility] Non-infectious Nails Ate[facility]asis Derm[facility] Non-infectious Nails Ate[facility]asis Derm[facility] Non-infectious Nails A[facility]asis [facility]erm[facility] Non-infectious Nails A[facility]erm[facility] Non-infectious Nails Atelectasis Dermat[facility] Non-infectious Nails Atelectasis Dermat[facility] Non-infectious Nails Atelectasis Dermat[facility] Non-infectious Nails Atelectasis Dermat[facility] Non-infectious Nails Atelectasis Dermat[facility] Non-infectious Nails Atelectasis Dermat[facility] Non-infectious Nails A[facility]asis [facility] Non-infectious Nails [facility] Non-infectious Nails [facility]asis [facility] Non-infectious Nails [facility]asis Derm[facility] Non-infectious Nails [facility] Non-infectious Nails Diabetes Mellitus Diabetes Mellitus Diabetes Mellitus Diabetes Mellitus Diabetes Mellitus Diabetes Mellitus Diabetes Mellitus Diabetes Mellitus Diabetes Mellitus Diabetes Mellitus Diabetes Mellitus Diabetes Mellitus Diabetes Mellitus Diabetes Mellitus Diabetes Mellitus Diabetes Mellitus Diabetes Mellitus Diabetes Mellitus Diabetes Mellitus Diabetes Mellitus Diabetes Mellitus Diabetes Mellitus Diabetes Mellitus Diabetes Mellitus Diabetes Mellitus Diabetes Mellitus Diabetes Mellitus Diabetes Mellitus Diabetes Mellitus Diabetes Mellitus Diabetes Mellitus Diabetes Mellitus Diabetes Mellitus Diabetes Mellitus Diabetes Mellitus Diabetes Mellitus Diabetes Mellitus Diabetes Mellitus Diabetes Mellitus Diabetes Mellitus Diabetes Mellitus Diabetes Mellitus Diabetes Mellitus Diabetes Mellitus Diabetes Mellitus Diabetes Mellitus Diabetes Mellitus Diabetes Mellitus Diabetes Mellitus Diabetes Mellitus Outpatient<td Attender: Wu 08/11/2018 Acquired Deformity GRE ENWAY ID="[id number]">OFFICE [facility] 12:00:00 PM of Toe - Hammer Toe (Bruin VISIT</td><td[facility] - Left Neighborhood DPM</td><td>[facility] 08/11/2018 Semi-rigidAcquired Health Center</td><td>08/11/2018</td><td><content 12:5 0:24 PM Deformity of Toe - Center) ID="[id number]">Tendonitis EDT Hammer Toe Right Achilles</content>, <content Semi-ri gidAcquired ID="[id number]">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</content>, <content Fourth Toe Acquired ID="[id number]">Acquired Deformity of Toe - Deformity of Toe - Hammer Toe Right Second Hammer Toe Left Toe</content>, <content Third ToeAcq uired ID="[id number]">Acquired Deformity of Toe - Deformity of Toe - Hammer Toe Right Third Hammer Toe Left Toe</content>, <content Second ToeAc quired ID="[id number]">Acquired Deformity of Toe - Deformity of Toe - Hammer Toe Right Fourth Hammer Toe Toe</content>, <content LeftAcquired ID="[id number]">Acquired Deformity of Toe - Deformity of Toe - Hammer Toe Hammer Toe Right Left</content>, <content Fourth ToeA cquired ID="[id number]">Acquired Deformity of Toe - Deformity of Toe - Hammer Toe Left Second Hammer Toe Right Toe</content>, <content Third ToeAcq uired ID="[id number]">Acquired Deformity of Toe - Deformity of Toe - Hammer Toe Left Third Hammer Toe Right Toe</content>, <content Second ToeAc quired ID="[id number]">Acquired Deformity of Toe - Deformity of Toe - Hammer Toe Left Fourth Hammer Toe Toe</content>, <content RightTendoni tis ID="[id number]">Acquired AchillesAcquired Deformity of Toe - Hammer Toe Right Deformity of Toe - Semi-rigid</content>, <content Hamme r Toe Left ID="[id number]">Acquired Semi-rigidAcquired Deformity of Toe - Hammer Toe Left D eformity of Toe - Semi-rigid</content></td> Hammer Toe Right Semi-rigidAcquired Deformity of Toe - Hammer Toe Left Fourth ToeAcquired Deformity of Toe - Hammer Toe Left Third ToeAcquired Deformity of Toe - Hammer Toe Left Second ToeAcquired Deformity of Toe - Hammer Toe LeftAcquired Deformity of Toe - Hammer Toe Right Fourth ToeAcquired Deformity of Toe - Hammer Toe Right Third ToeAcquired Deformity of Toe - Hammer Toe Right Second ToeAcquired Deformity of Toe - Hammer Toe RightTendonitis AchillesAcquired Deformity of Toe - Hammer Toe Left Semi-rigidAcquired Deformity of Toe - Hammer Toe Right Semi-rigidAcquired Deformity of Toe - Hammer Toe Left Fourth ToeAcquired Deformity of Toe - Hammer Toe Left Third ToeAcquired Deformity of Toe - Hammer Toe Left Second ToeAcquired Deformity of Toe - Hammer Toe LeftAcquired Deformity of Toe - Hammer Toe Right Fourth ToeAcquired Deformity of Toe - Hammer Toe Right Third ToeAcquired Deformity of Toe - Hammer Toe Right Second ToeAcquired Deformity of Toe - Hammer Toe RightTendonitis AchillesAcquired Deformity of Toe - Hammer Toe Left Semi-rigidAcquired Deformity of Toe - Hammer Toe Right Semi-rigidAcquired Deformity of Toe - Hammer Toe Left Fourth ToeAcquired Deformity of Toe - Hammer Toe Left Third ToeAcquired Deformity of Toe - Hammer Toe Left Second ToeAcquired Deformity of Toe - Hammer Toe LeftAcquired Deformity of Toe - Hammer Toe Right Fourth ToeAcquired Deformity of Toe - Hammer Toe Right Third ToeAcquired Deformity of Toe - Hammer Toe Right Second ToeAcquired Deformity of Toe - Hammer Toe RightTendonitis AchillesAcquired Deformity of Toe - Hammer Toe Left Semi-rigidAcquired Deformity of Toe - Hammer Toe Right Semi-rigidAcquired Deformity of Toe - Hammer Toe Left Fourth ToeAcquired Deformity of Toe - Hammer Toe Left Third ToeAcquired Deformity of Toe - Hammer Toe Left Second ToeAcquired Deformity of Toe - Hammer Toe LeftAcquired Deformity of Toe - Hammer Toe Right Fourth ToeAcquired Deformity of Toe - Hammer Toe Right Third ToeAcquired Deformity of Toe - Hammer Toe Right Second ToeAcquired Deformity of Toe - Hammer Toe RightTendonitis AchillesAcquired Deformity of Toe - Hammer Toe Left Semi-rigidAcquired Deformity of Toe - Hammer Toe Right Semi-rigidAcquired Deformity of Toe - Hammer Toe Left Fourth ToeAcquired Deformity of Toe - Hammer Toe Left Third ToeAcquired Deformity of Toe - Hammer Toe Left Second ToeAcquired Deformity of Toe - Hammer Toe LeftAcquired Deformity of Toe - Hammer Toe Right Fourth ToeAcquired Deformity of Toe - Hammer Toe Right Third ToeAcquired Deformity of Toe - Hammer Toe Right Second ToeAcquired Deformity of Toe - Hammer Toe RightTendonitis AchillesAcquired Deformity of Toe - Hammer Toe Left Semi-rigidAcquired Deformity of Toe - Hammer Toe Right Semi-rigidAcquired Deformity of Toe - Hammer Toe Left Fourth ToeAcquired Deformity of Toe - Hammer Toe Left Third ToeAcquired Deformity of Toe - Hammer Toe Left Second ToeAcquired Deformity of Toe - Hammer Toe LeftAcquired Deformity of Toe - Hammer Toe Right Fourth ToeAcquired Deformity of Toe - Hammer Toe Right Third ToeAcquired Deformity of Toe - Hammer Toe Right Second ToeAcquired Deformity of Toe - Hammer Toe RightTendonitis AchillesAcquired Deformity of Toe - Hammer Toe Left Semi-rigidAcquired Deformity of Toe - Hammer Toe Right Semi-rigidAcquired Deformity of Toe - Hammer Toe Left Fourth ToeAcquired Deformity of Toe - Hammer Toe Left Third ToeAcquired Deformity of Toe - Hammer Toe Left Second ToeAcquired Deformity of Toe - Hammer Toe LeftAcquired Deformity of Toe - Hammer Toe Right Fourth ToeAcquired Deformity of Toe - Hammer Toe Right Third ToeAcquired Deformity of Toe - Hammer Toe Right Second ToeAcquired Deformity of Toe - Hammer Toe RightTendonitis AchillesAcquired Deformity of Toe - Hammer Toe Left Semi-rigidAcquired Deformity of Toe - Hammer Toe Right Semi-rigidAcquired Deformity of Toe - Hammer Toe Left Fourth ToeAcquired Deformity of Toe - Hammer Toe Left Third ToeAcquired Deformity of Toe - Hammer Toe Left Second ToeAcquired Deformity of Toe - Hammer Toe LeftAcquired Deformity of Toe - Hammer Toe Right Third ToeAcquired Deformity of Toe - Hammer Toe Right Second ToeAcquired Deformity of Toe - Hammer Toe RightTendonitis AchillesAcquired Deformity of Toe - Hammer Toe Left Semi-rigidAcquired Deformity of Toe - Hammer Toe Right Semi-rigidAcquired Deformity of Toe - Hammer Toe Left Fourth ToeAcquired Deformity of Toe - Hammer Toe Left Third ToeAcquired Deformity of Toe - Hammer Toe Left Second ToeAcquired Deformity of Toe - Hammer Toe LeftAcquired Deformity of Toe - Hammer Toe Right Fourth ToeAcquired Deformity of Toe - Hammer Toe Right Third ToeAcquired Deformity of Toe - Hammer Toe Right Second ToeAcquired Deformity of Toe - Hammer Toe RightTendonitis AchillesAcquired Deformity of Toe - Hammer Toe Left Semi-rigidAcquired Deformity of Toe - Hammer Toe Right Semi-rigidAcquired Deformity of Toe - Hammer Toe Left Fourth ToeAcquired Deformity of Toe - Hammer Toe Left Third ToeAcquired Deformity of Toe - Hammer Toe Left Second ToeAcquired Deformity of Toe - Hammer Toe LeftAcquired Deformity of Toe - Hammer Toe Right Fourth ToeAcquired Deformity of Toe - Hammer Toe Right Third ToeAcquired Deformity of Toe - Hammer Toe Right Second ToeAcquired Deformity of Toe - Hammer Toe RightTendonitis AchillesAcquired Deformity of Toe - Hammer Toe Left Semi-rigidAcquired Deformity of Toe - Hammer Toe Right Semi-rigidAcquired Deformity of Toe - Hammer Toe Left Fourth ToeAcquired Deformity of Toe - Hammer Toe Left Third ToeAcquired Deformity of Toe - Hammer Toe Left Second ToeAcquired Deformity of Toe - Hammer Toe LeftAcquired Deformity of Toe - Hammer Toe Right Fourth ToeAcquired Deformity of Toe - Hammer Toe Right Third ToeAcquired Deformity of Toe - Hammer Toe Right Second ToeAcquired Deformity of Toe - Hammer Toe RightTendonitis AchillesAcquired Deformity of Toe - Hammer Toe Left Semi-rigidAcquired Deformity of Toe - Hammer Toe Right Semi-rigidAcquired Deformity of Toe - Hammer Toe Left Fourth ToeAcquired Deformity of Toe - Hammer Toe Left Third ToeAcquired Deformity of Toe - Hammer Toe Left Second ToeAcquired Deformity of Toe - Hammer Toe LeftAcquired Deformity of Toe - Hammer Toe Right Fourth ToeAcquired Deformity of Toe - Hammer Toe Right Third ToeAcquired Deformity of Toe - Hammer Toe Right Second ToeAcquired Deformity of Toe - Hammer Toe RightTendonitis AchillesAcquired Deformity of Toe - Hammer Toe Left Semi-rigidAcquired Deformity of Toe - Hammer Toe Right Semi-rigidAcquired Deformity of Toe - Hammer Toe Left Fourth ToeAcquired Deformity of Toe - Hammer Toe Left Third ToeAcquired Deformity of Toe - Hammer Toe Left Second ToeAcquired Deformity of Toe - Hammer Toe LeftAcquired Deformity of Toe - Hammer Toe Right Fourth ToeAcquired Deformity of Toe - Hammer Toe Right Third ToeAcquired Deformity of Toe - Hammer Toe Right Second ToeAcquired Deformity of Toe - Hammer Toe RightTendonitis AchillesAcquired Deformity of Toe - Hammer Toe Left Semi-rigidAcquired Deformity of Toe - Hammer Toe Right Semi-rigidAcquired Deformity of Toe - Hammer Toe Left Fourth ToeAcquired Deformity of Toe - Hammer Toe Left Third ToeAcquired Deformity of Toe - Hammer Toe Left Second ToeAcquired Deformity of Toe - Hammer Toe LeftAcquired Deformity of Toe - Hammer Toe Right Fourth ToeAcquired Deformity of Toe - Hammer Toe Right Third ToeAcquired Deformity of Toe - Hammer Toe Right Second ToeAcquired Deformity of Toe - Hammer Toe RightTendonitis AchillesAcquired Deformity of Toe - Hammer Toe Left Semi-rigidAcquired Deformity of Toe - Hammer Toe Right Semi-rigidAcquired Deformity of Toe - Hammer Toe Left Fourth ToeAcquired Deformity of Toe - Hammer Toe Left Third ToeAcquired Deformity of Toe - Hammer Toe Left Second ToeAcquired Deformity of Toe - Hammer Toe LeftAcquired Deformity of Toe - Hammer Toe Right Fourth ToeAcquired Deformity of Toe - Hammer Toe Right Third ToeAcquired Deformity of Toe - Hammer Toe Right Second ToeAcquired Deformity of Toe - Hammer Toe RightTendonitis AchillesAcquired Deformity of Toe - Hammer Toe Left Semi-rigidAcquired Deformity of Toe - Hammer Toe Right Semi-rigidAcquired Deformity of Toe - Hammer Toe Left Fourth ToeAcquired Deformity of Toe - Hammer Toe Left Third ToeAcquired Deformity of Toe - Hammer Toe Left Second ToeAcquired Deformity of Toe - Hammer Toe LeftAcquired Deformity of Toe - Hammer Toe Right Fourth ToeAcquired Deformity of Toe - Hammer Toe Right Third ToeAcquired Deformity of Toe - Hammer Toe Right Second ToeAcquired Deformity of Toe - Hammer Toe RightTendonitis AchillesAcquired Deformity of Toe - Hammer Toe Left Semi-rigidAcquired Deformity of Toe - Hammer Toe Right Semi-rigidAcquired Deformity of Toe - Hammer Toe Left Fourth ToeAcquired Deformity of Toe - Hammer Toe Left Third ToeAcquired Deformity of Toe - Hammer Toe Left Second ToeAcquired Deformity of Toe - Hammer Toe LeftAcquired Deformity of Toe - Hammer Toe Right Fourth ToeAcquired Deformity of Toe - Hammer Toe Right Third ToeAcquired Deformity of Toe - Hammer Toe Right Second ToeAcquired Deformity of Toe - Hammer Toe RightTendonitis AchillesAcquired Deformity of Toe - Hammer Toe Left Semi-rigidAcquired Deformity of Toe - Hammer Toe Right Semi-rigidAcquired Deformity of Toe - Hammer Toe Left Fourth ToeAcquired Deformity of Toe - Hammer Toe Left Third ToeAcquired Deformity of Toe - Hammer Toe Left Second ToeAcquired Deformity of Toe - Hammer Toe LeftAcquired Deformity of Toe - Hammer Toe Right Fourth ToeAcquired Deformity of Toe - Hammer Toe Right Third ToeAcquired Deformity of Toe - Hammer Toe Right Second ToeAcquired Deformity of Toe - Hammer Toe RightTendonitis AchillesAcquired Deformity of Toe - Hammer Toe Left Semi-rigidAcquired Deformity of Toe - Hammer Toe Right Semi-rigidAcquired Deformity of Toe - Hammer Toe Left Fourth ToeAcquired Deformity of Toe - Hammer Toe Left Third ToeAcquired Deformity of Toe - Hammer Toe Left Second ToeAcquired Deformity of Toe - Hammer Toe LeftAcquired Deformity of Toe - Hammer Toe Right Fourth ToeAcquired Deformity of Toe - Hammer Toe Right Third ToeAcquired Deformity of Toe - Hammer Toe Right Second ToeAcquired Deformity of Toe - Hammer Toe RightTendonitis AchillesAcquired Deformity of Toe - Hammer Toe Left Semi-rigidAcquired Deformity of Toe - Hammer Toe Right Semi-rigidAcquired Deformity of Toe - Hammer Toe Left Fourth ToeAcquired Deformity of Toe - Hammer Toe Left Third ToeAcquired Deformity of Toe - Hammer Toe Left Second ToeAcquired Deformity of Toe - Hammer Toe LeftAcquired Deformity of Toe - Hammer Toe Right Fourth ToeAcquired Deformity of Toe - Hammer Toe Right Third ToeAcquired Deformity of Toe - Hammer Toe Right Second ToeAcquired Deformity of Toe - Hammer Toe RightTendonitis AchillesAcquired Deformity of Toe - Hammer Toe Right Semi-rigidAcquired Deformity of Toe - Hammer Toe Left Fourth ToeAcquired Deformity of Toe - Hammer Toe Left Third ToeAcquired Deformity of Toe - Hammer Toe Left Second ToeAcquired Deformity of Toe - Hammer Toe LeftAcquired Deformity of Toe - Hammer Toe Right Fourth ToeAcquired Deformity of Toe - Hammer Toe Right Third ToeAcquired Deformity of Toe - Hammer Toe Right Second ToeAcquired Deformity of Toe - Hammer Toe RightTendonitis AchillesAcquired Deformity of Toe - Hammer Toe Left Semi-rigidAcquired Deformity of Toe - Hammer Toe Right Semi-rigidAcquired Deformity of Toe - Hammer Toe Left Fourth ToeAcquired Deformity of Toe - Hammer Toe Left Third ToeAcquired Deformity of Toe - Hammer Toe Left Second ToeAcquired Deformity of Toe - Hammer Toe LeftAcquired Deformity of Toe - Hammer Toe Right Fourth ToeAcquired Deformity of Toe - Hammer Toe Right Third ToeAcquired Deformity of Toe - Hammer Toe Right Second ToeAcquired Deformity of Toe - Hammer Toe RightTendonitis AchillesAcquired Deformity of Toe - Hammer Toe Left Semi-rigidAcquired Deformity of Toe - Hammer Toe Right Semi-rigidAcquired Deformity of Toe - Hammer Toe Left Fourth ToeAcquired Deformity of Toe - Hammer Toe Left Third ToeAcquired Deformity of Toe - Hammer Toe Left Second ToeAcquired Deformity of Toe - Hammer Toe LeftAcquired Deformity of Toe - Hammer Toe Right Fourth ToeAcquired Deformity of Toe - Hammer Toe Right Third ToeAcquired Deformity of Toe - Hammer Toe Right Second ToeAcquired Deformity of Toe - Hammer Toe RightTendonitis AchillesAcquired Deformity of Toe - Hammer Toe Left Semi-rigidAcquired Deformity of Toe - Hammer Toe Right Semi-rigidAcquired Deformity of Toe - Hammer Toe Left Fourth ToeAcquired Deformity of Toe - Hammer Toe Left Third ToeAcquired Deformity of Toe - Hammer Toe Left Second ToeAcquired Deformity of Toe - Hammer Toe LeftAcquired Deformity of Toe - Hammer Toe Right Fourth ToeAcquired Deformity of Toe - Hammer Toe Right Third ToeAcquired Deformity of Toe - Hammer Toe Right Second ToeAcquired Deformity of Toe - Hammer Toe RightTendonitis AchillesAcquired Deformity of Toe - Hammer Toe Left Semi-rigidAcquired Deformity of Toe - Hammer Toe Right Semi-rigidAcquired Deformity of Toe - Hammer Toe Left Fourth ToeAcquired Deformity of Toe - Hammer Toe Left Third ToeAcquired Deformity of Toe - Hammer Toe Left Second ToeAcquired Deformity of Toe - Hammer Toe LeftAcquired Deformity of Toe - Hammer Toe Right Fourth ToeAcquired Deformity of Toe - Hammer Toe Right Third ToeAcquired Deformity of Toe - Hammer Toe Right Second ToeAcquired Deformity of Toe - Hammer Toe RightTendonitis AchillesAcquired Deformity of Toe - Hammer Toe Left Semi-rigidAcquired Deformity of Toe - Hammer Toe Right Semi-rigidAcquired Deformity of Toe - Hammer Toe Left Fourth ToeAcquired Deformity of Toe - Hammer Toe Left Third ToeAcquired Deformity of Toe - Hammer Toe Left Second ToeAcquired Deformity of Toe - Hammer Toe LeftAcquired Deformity of Toe - Hammer Toe Right Fourth ToeAcquired Deformity of Toe - Hammer Toe Right Third ToeAcquired Deformity of Toe - Hammer Toe Right Second ToeAcquired Deformity of Toe - Hammer Toe RightTendonitis AchillesAcquired Deformity of Toe - Hammer Toe Left Semi-rigidAcquired Deformity of Toe - Hammer Toe Right Semi-rigidAcquired Deformity of Toe - Hammer Toe Left Fourth ToeAcquired Deformity of Toe - Hammer Toe Left Third ToeAcquired Deformity of Toe - Hammer Toe Left Second ToeAcquired Deformity of Toe - Hammer Toe LeftAcquired Deformity of Toe - Hammer Toe Right Fourth ToeAcquired Deformity of Toe - Hammer Toe Right Third ToeAcquired Deformity of Toe - Hammer Toe Right Second ToeAcquired Deformity of Toe - Hammer Toe RightTendonitis AchillesAcquired Deformity of Toe - Hammer Toe Left Semi-rigidAcquired Deformity of Toe - Hammer Toe Right Semi-rigidAcquired Deformity of Toe - Hammer Toe Left Fourth ToeAcquired Deformity of Toe - Hammer Toe Left Third ToeAcquired Deformity of Toe - Hammer Toe Left Second ToeAcquired Deformity of Toe - Hammer Toe LeftAcquired Deformity of Toe - Hammer Toe Right Fourth ToeAcquired Deformity of Toe - Hammer Toe Right Third ToeAcquired Deformity of Toe - Hammer Toe Right Second ToeAcquired Deformity of Toe - Hammer Toe RightTendonitis AchillesAcquired Deformity of Toe - Hammer Toe Left Semi-rigidAcquired Deformity of Toe - Hammer Toe Right Semi-rigidAcquired Deformity of Toe - Hammer Toe Left Fourth ToeAcquired Deformity of Toe - Hammer Toe Left Third ToeAcquired Deformity of Toe - Hammer Toe Left Second ToeAcquired Deformity of Toe - Hammer Toe LeftAcquired Deformity of Toe - Hammer Toe Right Fourth ToeAcquired Deformity of Toe - Hammer Toe Right Third ToeAcquired Deformity of Toe - Hammer Toe Right Second ToeAcquired Deformity of Toe - Hammer Toe RightTendonitis AchillesAcquired Deformity of Toe - Hammer Toe Left Semi-rigidAcquired Deformity of Toe - Hammer Toe Right Semi-rigidAcquired Deformity of Toe - Hammer Toe Left Fourth ToeAcquired Deformity of Toe - Hammer Toe Left Third ToeAcquired Deformity of Toe - Hammer Toe Left Second ToeAcquired Deformity of Toe - Hammer Toe LeftAcquired Deformity of Toe - Hammer Toe Right Fourth ToeAcquired Deformity of Toe - Hammer Toe Right Third ToeAcquired Deformity of Toe - Hammer Toe Right Second ToeAcquired Deformity of Toe - Hammer Toe RightTendonitis AchillesAcquired Deformity of Toe - Hammer Toe Left Semi-rigidAcquired Deformity of Toe - Hammer Toe Right Semi-rigidAcquired Deformity of Toe - Hammer Toe Left Fourth ToeAcquired Deformity of Toe - Hammer Toe Left Third ToeAcquired Deformity of Toe - Hammer Toe Left Second ToeAcquired Deformity of Toe - Hammer Toe LeftAcquired Deformity of Toe - Hammer Toe Right Fourth ToeAcquired Deformity of Toe - Hammer Toe Right Third ToeAcquired Deformity of Toe - Hammer Toe Right Second ToeAcquired Deformity of Toe - Hammer Toe RightTendonitis AchillesAcquired Deformity of Toe - Hammer Toe Left Semi-rigidAcquired Deformity of Toe - Hammer Toe Right Semi-rigidAcquired Deformity of Toe - Hammer Toe Left Fourth ToeAcquired Deformity of Toe - Hammer Toe Left Third ToeAcquired Deformity of Toe - Hammer Toe Left Second ToeAcquired Deformity of Toe - Hammer Toe LeftAcquired Deformity of Toe - Hammer Toe Right Fourth ToeAcquired Deformity of Toe - Hammer Toe Right Third ToeAcquired Deformity of Toe - Hammer Toe Right Second ToeAcquired Deformity of Toe - Hammer Toe RightTendonitis AchillesAcquired Deformity of Toe - Hammer Toe Left Semi-rigidAcquired Deformity of Toe - Hammer Toe Right Semi-rigidAcquired Deformity of Toe - Hammer Toe Left Fourth ToeAcquired Deformity of Toe - Hammer Toe Left Third ToeAcquired Deformity of Toe - Hammer Toe Left Second ToeAcquired Deformity of Toe - Hammer Toe LeftAcquired Deformity of Toe - Hammer Toe Right Fourth ToeAcquired Deformity of Toe - Hammer Toe Right Third ToeAcquired Deformity of Toe - Hammer Toe Right Second ToeAcquired Deformity of Toe - Hammer Toe RightTendonitis AchillesAcquired Deformity of Toe - Hammer Toe Left Semi-rigidAcquired Deformity of Toe - Hammer Toe Right Semi-rigidAcquired Deformity of Toe - Hammer Toe Left Fourth ToeAcquired Deformity of Toe - Hammer Toe Left Third ToeAcquired Deformity of Toe - Hammer Toe Left Second ToeAcquired Deformity of Toe - Hammer Toe LeftAcquired Deformity of Toe - Hammer Toe Right Fourth ToeAcquired Deformity of Toe - Hammer Toe Right Fourth ToeAcquired Deformity of Toe - Hammer Toe Right Third ToeAcquired Deformity of Toe - Hammer Toe Right Second ToeAcquired Deformity of Toe - Hammer Toe RightTendonitis AchillesAcquired Deformity of Toe - Hammer Toe Left Semi-rigidAcquired Deformity of Toe - Hammer Toe Right Semi-rigidAcquired Deformity of Toe - Hammer Toe Left Fourth ToeAcquired Deformity of Toe - Hammer Toe Left Third ToeAcquired Deformity of Toe - Hammer Toe Left Second ToeAcquired Deformity of Toe - Hammer Toe LeftAcquired Deformity of Toe - Hammer Toe Right Fourth ToeAcquired Deformity of Toe - Hammer Toe Right Third ToeAcquired Deformity of Toe - Hammer Toe Right Second ToeAcquired Deformity of Toe - Hammer Toe RightTendonitis AchillesAcquired Deformity of Toe - Hammer Toe Left Semi-rigidAcquired Deformity of Toe - Hammer Toe Right Semi-rigidAcquired Deformity of Toe - Hammer Toe Left Fourth ToeAcquired Deformity of Toe - Hammer Toe Left Third ToeAcquired Deformity of Toe - Hammer Toe Left Second ToeAcquired Deformity of Toe - Hammer Toe LeftAcquired Deformity of Toe - Hammer Toe Right Fourth ToeAcquired Deformity of Toe - Hammer Toe Right Third ToeAcquired Deformity of Toe - Hammer Toe Right Second ToeAcquired Deformity of Toe - Hammer Toe RightTendonitis AchillesAcquired Deformity of Toe - Hammer Toe Left Semi-rigidAcquired Deformity of Toe - Hammer Toe Right Semi-rigidAcquired Deformity of Toe - Hammer Toe Left Fourth ToeAcquired Deformity of Toe - Hammer Toe Left Third ToeAcquired Deformity of Toe - Hammer Toe Left Second ToeAcquired Deformity of Toe - Hammer Toe LeftAcquired Deformity of Toe - Hammer Toe Right Fourth ToeAcquired Deformity of Toe - Hammer Toe Right Third ToeAcquired Deformity of Toe - Hammer Toe Right Second ToeAcquired Deformity of Toe - Hammer Toe RightTendonitis AchillesAcquired Deformity of Toe - Hammer Toe Left Semi-rigidAcquired Deformity of Toe - Hammer Toe Right Semi-rigidAcquired Deformity of Toe - Hammer Toe Left Fourth ToeAcquired Deformity of Toe - Hammer Toe Left Third ToeAcquired Deformity of Toe - Hammer Toe Left Second ToeAcquired Deformity of Toe - Hammer Toe LeftAcquired Deformity of Toe - Hammer Toe Right Fourth ToeAcquired Deformity of Toe - Hammer Toe Right Third ToeAcquired Deformity of Toe - Hammer Toe Right Second ToeAcquired Deformity of Toe - Hammer Toe RightTendonitis AchillesAcquired Deformity of Toe - Hammer Toe Left Semi-rigidAcquired Deformity of Toe - Hammer Toe Right Semi-rigidAcquired Deformity of Toe - Hammer Toe Left Fourth ToeAcquired Deformity of Toe - Hammer Toe Left Third ToeAcquired Deformity of Toe - Hammer Toe Left Second ToeAcquired Deformity of Toe - Hammer Toe LeftAcquired Deformity of Toe - Hammer Toe Right Fourth ToeAcquired Deformity of Toe - Hammer Toe Right Third ToeAcquired Deformity of Toe - Hammer Toe Right Second ToeAcquired Deformity of Toe - Hammer Toe RightTendonitis AchillesAcquired Deformity of Toe - Hammer Toe Left Semi-rigidAcquired Deformity of Toe - Hammer Toe Right Semi-rigidAcquired Deformity of Toe - Hammer Toe Left Fourth ToeAcquired Deformity of Toe - Hammer Toe Left Third ToeAcquired Deformity of Toe - Hammer Toe Left Second ToeAcquired Deformity of Toe - Hammer Toe LeftAcquired Deformity of Toe - Hammer Toe Right Fourth ToeAcquired Deformity of Toe - Hammer Toe Right Third ToeAcquired Deformity of Toe - Hammer Toe Right Second ToeAcquired Deformity of Toe - Hammer Toe RightTendonitis AchillesAcquired Deformity of Toe - Hammer Toe Left Semi-rigidAcquired Deformity of Toe - Hammer Toe Right Semi-rigidAcquired Deformity of Toe - Hammer Toe Left Fourth ToeAcquired Deformity of Toe - Hammer Toe Left Third ToeAcquired Deformity of Toe - Hammer Toe Left Second ToeAcquired Deformity of Toe - Hammer Toe LeftAcquired Deformity of Toe - Hammer Toe Right Fourth ToeAcquired Deformity of Toe - Hammer Toe Right Third ToeAcquired Deformity of Toe - Hammer Toe Right Second ToeAcquired Deformity of Toe - Hammer Toe RightTendonitis AchillesAcquired Deformity of Toe - Hammer Toe Left Semi-rigidAcquired Deformity of Toe - Hammer Toe Right Semi-rigidAcquired Deformity of Toe - Hammer Toe Left Fourth ToeAcquired Deformity of Toe - Hammer Toe Left Third ToeAcquired Deformity of Toe - Hammer Toe Left Second ToeAcquired Deformity of Toe - Hammer Toe LeftAcquired Deformity of Toe - Hammer Toe Right Fourth ToeAcquired Deformity of Toe - Hammer Toe Left Semi-rigidAcquired Deformity of Toe - Hammer Toe Right Third ToeAcquired Deformity of Toe - Hammer Toe Right Second ToeAcquired Deformity of Toe - Hammer Toe RightTendonitis AchillesAcquired Deformity of Toe - Hammer Toe Left Semi-rigidAcquired Deformity of Toe - Hammer Toe Right Semi-rigidAcquired Deformity of Toe - Hammer Toe Left Fourth ToeAcquired Deformity of Toe - Hammer Toe Left Third ToeAcquired Deformity of Toe - Hammer Toe Left Second ToeAcquired Deformity of Toe - Hammer Toe LeftAcquired Deformity of Toe - Hammer Toe Right Fourth ToeAcquired Deformity of Toe - Hammer Toe Right Third ToeAcquired Deformity of Toe - Hammer Toe Right Second ToeAcquired Deformity of Toe - Hammer Toe RightTendonitis AchillesAcquired Deformity of Toe - Hammer Toe Left Semi-rigidAcquired Deformity of Toe - Hammer Toe Right Semi-rigidAcquired Deformity of Toe - Hammer Toe Left Fourth ToeAcquired Deformity of Toe - Hammer Toe Left Third ToeAcquired Deformity of Toe - Hammer Toe Left Second ToeAcquired Deformity of Toe - Hammer Toe LeftAcquired Deformity of Toe - Hammer Toe Right Fourth ToeAcquired Deformity of Toe - Hammer Toe Right Third ToeAcquired Deformity of Toe - Hammer Toe Right Second ToeAcquired Deformity of Toe - Hammer Toe RightTendonitis AchillesAcquired Deformity of Toe - Hammer Toe Left Semi-rigidAcquired Deformity of Toe - Hammer Toe Right Semi-rigidAcquired Deformity of Toe - Hammer Toe Left Fourth ToeAcquired Deformity of Toe - Hammer Toe Left Third ToeAcquired Deformity of Toe - Hammer Toe Left Second ToeAcquired Deformity of Toe - Hammer Toe LeftAcquired Deformity of Toe - Hammer Toe Right Fourth ToeAcquired Deformity of Toe - Hammer Toe Right Third ToeAcquired Deformity of Toe - Hammer Toe Right Second ToeAcquired Deformity of Toe - Hammer Toe RightTendonitis AchillesAcquired Deformity of Toe - Hammer Toe Left Semi-rigidAcquired Deformity of Toe - Hammer Toe Right Semi-rigidAcquired Deformity of Toe - Hammer Toe Left Fourth ToeAcquired Deformity of Toe - Hammer Toe Left Third ToeAcquired Deformity of Toe - Hammer Toe Left Second ToeAcquired Deformity of Toe - Hammer Toe LeftAcquired Deformity of Toe - Hammer Toe Right Fourth ToeAcquired Deformity of Toe - Hammer Toe Right Third ToeAcquired Deformity of Toe - Hammer Toe Right Second ToeAcquired Deformity of Toe - Hammer Toe RightTendonitis AchillesAcquired Deformity of Toe - Hammer Toe Left Semi-rigidAcquired Deformity of Toe - Hammer Toe Right Semi-rigidAcquired Deformity of Toe - Hammer Toe Left Fourth ToeAcquired Deformity of Toe - Hammer Toe Left Third ToeAcquired Deformity of Toe - Hammer Toe Left Second ToeAcquired Deformity of Toe - Hammer Toe LeftAcquired Deformity of Toe - Hammer Toe Right Fourth ToeAcquired Deformity of Toe - Hammer Toe Right Third ToeAcquired Deformity of Toe - Hammer Toe Right Second ToeAcquired Deformity of Toe - Hammer Toe RightTendonitis AchillesAcquired Deformity of Toe - Hammer Toe Left Semi-rigidAcquired Deformity of Toe - Hammer Toe Right Semi-rigidAcquired Deformity of Toe - Hammer Toe Left Fourth ToeAcquired Deformity of Toe - Hammer Toe Left Third ToeAcquired Deformity of Toe - Hammer Toe Left Second ToeAcquired Deformity of Toe - Hammer Toe LeftAcquired Deformity of Toe - Hammer Toe Right Fourth ToeAcquired Deformity of Toe - Hammer Toe Right Third ToeAcquired Deformity of Toe - Hammer Toe Right Second ToeAcquired Deformity of Toe - Hammer Toe RightTendonitis AchillesAcquired Deformity of Toe - Hammer Toe Left Semi-rigidAcquired Deformity of Toe - Hammer Toe Right Semi-rigidAcquired Deformity of Toe - Hammer Toe Left Fourth ToeAcquired Deformity of Toe - Hammer Toe Left Third ToeAcquired Deformity of Toe - Hammer Toe Left Second ToeAcquired Deformity of Toe - Hammer Toe LeftAcquired Deformity of Toe - Hammer Toe Right Fourth ToeAcquired Deformity of Toe - Hammer Toe Right Third ToeAcquired Deformity of Toe - Hammer Toe Right Second ToeAcquired Deformity of Toe - Hammer Toe RightTendonitis AchillesAcquired Deformity of Toe - Hammer Toe Left Semi-rigidAcquired Deformity of Toe - Hammer Toe Right Semi-rigidAcquired Deformity of Toe - Hammer Toe Left Fourth ToeAcquired Deformity of Toe - Hammer Toe Left Third ToeAcquired Deformity of Toe - Hammer Toe Left Second ToeAcquired Deformity of Toe - Hammer Toe LeftAcquired Deformity of Toe - Hammer Toe Right Fourth ToeAcquired Deformity of Toe - Hammer Toe Right Third ToeAcquired Deformity of Toe - Hammer Toe Right Second ToeAcquired Deformity of Toe - Hammer Toe RightTendonitis Achilles Acquired Deformity of Toe - Hammer Toe L eft Semi-rigid Acquired Deformity of Toe - Hammer Toe R ight Semi-rigid Acquired Deformity of Toe - Hammer Toe L eft Fourth Toe Acquired Deformity of Toe - Hammer Toe L eft Third Toe Acquired Deformity of Toe - Hammer Toe L eft Second Toe Acquired Deformity of Toe - Hammer Toe L eft Acquired Deformity of Toe - Hammer Toe R ight Fourth Toe Acquired Deformity of Toe - Hammer Toe R ight Third Toe Acquired Deformity of Toe - Hammer Toe R ight Second Toe Acquired Deformity of Toe - Hammer Toe R ight Tendonitis Achilles Acquired Deformity of Toe - Hammer Toe L eft Semi-rigid Acquired Deformity of Toe - Hammer Toe R ight Semi-rigid Acquired Deformity of Toe - Hammer Toe L eft Fourth Toe Acquired Deformity of Toe - Hammer Toe L eft Third Toe Acquired Deformity of Toe - Hammer Toe L eft Second Toe Acquired Deformity of Toe - Hammer Toe L eft Acquired Deformity of Toe - Hammer Toe R ight Fourth Toe Acquired Deformity of Toe - Hammer Toe R ight Third Toe Acquired Deformity of Toe - Hammer Toe R ight Second Toe Acquired Deformity of Toe - Hammer Toe R ight Tendonitis Achilles Acquired Deformity of Toe - Hammer Toe L eft Semi-rigid Acquired Deformity of Toe - Hammer Toe R ight Semi-rigid Acquired Deformity of Toe - Hammer Toe L eft Fourth Toe Acquired Deformity of Toe - Hammer Toe L eft Third Toe Acquired Deformity of Toe - Hammer Toe L eft Second Toe Acquired Deformity of Toe - Hammer Toe L eft Acquired Deformity of Toe - Hammer Toe R ight Fourth Toe Acquired Deformity of Toe - Hammer Toe R ight Third Toe Acquired Deformity of Toe - Hammer Toe R ight Second Toe Acquired Deformity of Toe - Hammer Toe R ight Tendonitis Achilles Acquired Deformity of Toe - Hammer Toe L eft Semi-rigid Acquired Deformity of Toe - Hammer Toe R ight Semi-rigid Acquired Deformity of Toe - Hammer Toe L eft Fourth Toe Acquired Deformity of Toe - Hammer Toe L eft Third Toe Acquired Deformity of Toe - Hammer Toe L eft Second Toe Acquired Deformity of Toe - Hammer Toe L eft Acquired Deformity of Toe - Hammer Toe R ight Fourth Toe Acquired Deformity of Toe - Hammer Toe R ight Third Toe Acquired Deformity of Toe - Hammer Toe R ight Second Toe Acquired Deformity of Toe - Hammer Toe R ight Tendonitis Achilles Acquired Deformity of Toe - Hammer Toe L eft Semi-rigid Acquired Deformity of Toe - Hammer Toe R ight Semi-rigid Acquired Deformity of Toe - Hammer Toe L eft Fourth Toe Acquired Deformity of Toe - Hammer Toe L eft Third Toe Acquired Deformity of Toe - Hammer Toe L eft Second Toe Acquired Deformity of Toe - Hammer Toe L eft Acquired Deformity of Toe - Hammer Toe R ight Fourth Toe Acquired Deformity of Toe - Hammer Toe R ight Third Toe Acquired Deformity of Toe - Hammer Toe R ight Second Toe Acquired Deformity of Toe - Hammer Toe R ight Tendonitis Achilles Acquired Deformity of Toe - Hammer Toe L eft Semi-rigid Acquired Deformity of Toe - Hammer Toe R ight Semi-rigid Acquired Deformity of Toe - Hammer Toe L eft Fourth Toe Acquired Deformity of Toe - Hammer Toe L eft Third Toe Acquired Deformity of Toe - Hammer Toe L eft Second Toe Acquired Deformity of Toe - Hammer Toe L eft Acquired Deformity of Toe - Hammer Toe R ight Fourth Toe Acquired Deformity of Toe - Hammer Toe R ight Third Toe Acquired Deformity of Toe - Hammer Toe R ight Second Toe Acquired Deformity of Toe - Hammer Toe R ight Tendonitis Achilles Acquired Deformity of Toe - Hammer Toe L eft Semi-rigid Acquired Deformity of Toe - Hammer Toe R ight Semi-rigid Acquired Deformity of Toe - Hammer Toe L eft Fourth Toe Acquired Deformity of Toe - Hammer Toe L eft Third Toe Acquired Deformity of Toe - Hammer Toe L eft Second Toe Acquired Deformity of Toe - Hammer Toe L eft Acquired Deformity of Toe - Hammer Toe R ight Fourth Toe Acquired Deformity of Toe - Hammer Toe R ight Third Toe Acquired Deformity of Toe - Hammer Toe R ight Second Toe Acquired Deformity of Toe - Hammer Toe R ight Tendonitis Achilles Acquired Deformity of Toe - Hammer Toe L eft Semi-rigid Acquired Deformity of Toe - Hammer Toe R ight Semi-rigid Acquired Deformity of Toe - Hammer Toe L eft Fourth Toe Acquired Deformity of Toe - Hammer Toe L eft Third Toe Acquired Deformity of Toe - Hammer Toe L eft Second Toe Acquired Deformity of Toe - Hammer Toe L eft Acquired Deformity of Toe - Hammer Toe R ight Fourth Toe Acquired Deformity of Toe - Hammer Toe R ight Third Toe Acquired Deformity of Toe - Hammer Toe R ight Second Toe Acquired Deformity of Toe - Hammer Toe R ight Tendonitis Achilles Acquired Deformity of Toe - Hammer Toe L eft Semi-rigid Acquired Deformity of Toe - Hammer Toe R ight Semi-rigid Acquired Deformity of Toe - Hammer Toe L eft Fourth Toe Acquired Deformity of Toe - Hammer Toe L eft Third Toe Acquired Deformity of Toe - Hammer Toe L eft Second Toe Acquired Deformity of Toe - Hammer Toe L eft Acquired Deformity of Toe - Hammer Toe R ight Third Toe Acquired Deformity of Toe - Hammer Toe R ight Second Toe Acquired Deformity of Toe - Hammer Toe R ight Tendonitis Achilles Acquired Deformity of Toe - Hammer Toe L eft Semi-rigid Acquired Deformity of Toe - Hammer Toe R ight Semi-rigid Acquired Deformity of Toe - Hammer Toe L eft Fourth Toe Acquired Deformity of Toe - Hammer Toe L eft Third Toe Acquired Deformity of Toe - Hammer Toe L eft Second Toe Acquired Deformity of Toe - Hammer Toe L eft Acquired Deformity of Toe - Hammer Toe R ight Fourth Toe Acquired Deformity of Toe - Hammer Toe R ight Third Toe Acquired Deformity of Toe - Hammer Toe R ight Second Toe Acquired Deformity of Toe - Hammer Toe R ight Tendonitis Achilles Acquired Deformity of Toe - Hammer Toe L eft Semi-rigid Acquired Deformity of Toe - Hammer Toe R ight Semi-rigid Acquired Deformity of Toe - Hammer Toe L eft Fourth Toe Acquired Deformity of Toe - Hammer Toe L eft Third Toe Acquired Deformity of Toe - Hammer Toe L eft Second Toe Acquired Deformity of Toe - Hammer Toe L eft Acquired Deformity of Toe - Hammer Toe R ight Fourth Toe Acquired Deformity of Toe - Hammer Toe R ight Third Toe Acquired Deformity of Toe - Hammer Toe R ight Second Toe Acquired Deformity of Toe - Hammer Toe R ight Tendonitis Achilles Acquired Deformity of Toe - Hammer Toe L eft Semi-rigid Acquired Deformity of Toe - Hammer Toe R ight Semi-rigid Acquired Deformity of Toe - Hammer Toe L eft Fourth Toe Acquired Deformity of Toe - Hammer Toe L eft Third Toe Acquired Deformity of Toe - Hammer Toe L eft Second Toe Acquired Deformity of Toe - Hammer Toe L eft Acquired Deformity of Toe - Hammer Toe R ight Fourth Toe Acquired Deformity of Toe - Hammer Toe R ight Third Toe Acquired Deformity of Toe - Hammer Toe R ight Second Toe Acquired Deformity of Toe - Hammer Toe R ight Tendonitis Achilles Acquired Deformity of Toe - Hammer Toe L eft Semi-rigid Acquired Deformity of Toe - Hammer Toe R ight Semi-rigid Acquired Deformity of Toe - Hammer Toe L eft Fourth Toe Acquired Deformity of Toe - Hammer Toe L eft Third Toe Acquired Deformity of Toe - Hammer Toe L eft Second Toe Acquired Deformity of Toe - Hammer Toe L eft Acquired Deformity of Toe - Hammer Toe R ight Fourth Toe Acquired Deformity of Toe - Hammer Toe R ight Third Toe Acquired Deformity of Toe - Hammer Toe R ight Second Toe Acquired Deformity of Toe - Hammer Toe R ight Tendonitis Achilles Acquired Deformity of Toe - Hammer Toe L eft Semi-rigid Acquired Deformity of Toe - Hammer Toe R ight Semi-rigid Acquired Deformity of Toe - Hammer Toe L eft Fourth Toe Acquired Deformity of Toe - Hammer Toe L eft Third Toe Acquired Deformity of Toe - Hammer Toe L eft Second Toe Acquired Deformity of Toe - Hammer Toe L eft Acquired Deformity of Toe - Hammer Toe R ight Fourth Toe Acquired Deformity of Toe - Hammer Toe R ight Third Toe Acquired Deformity of Toe - Hammer Toe R ight Second Toe Acquired Deformity of Toe - Hammer Toe R ight Tendonitis Achilles Acquired Deformity of Toe - Hammer Toe L eft Semi-rigid Acquired Deformity of Toe - Hammer Toe R ight Semi-rigid Acquired Deformity of Toe - Hammer Toe L eft Fourth Toe Acquired Deformity of Toe - Hammer Toe L eft Third Toe Acquired Deformity of Toe - Hammer Toe L eft Second Toe Acquired Deformity of Toe - Hammer Toe L eft Acquired Deformity of Toe - Hammer Toe R ight Fourth Toe Acquired Deformity of Toe - Hammer Toe R ight Third Toe Acquired Deformity of Toe - Hammer Toe R ight Second Toe Acquired Deformity of Toe - Hammer Toe R ight Tendonitis Achilles Acquired Deformity of Toe - Hammer Toe L eft Semi-rigid Acquired Deformity of Toe - Hammer Toe R ight Semi-rigid Acquired Deformity of Toe - Hammer Toe L eft Fourth Toe Acquired Deformity of Toe - Hammer Toe L eft Third Toe Acquired Deformity of Toe - Hammer Toe L eft Second Toe Acquired Deformity of Toe - Hammer Toe L eft Acquired Deformity of Toe - Hammer Toe R ight Fourth Toe Acquired Deformity of Toe - Hammer Toe R ight Third Toe Acquired Deformity of Toe - Hammer Toe R ight Second Toe Acquired Deformity of Toe - Hammer Toe R ight Tendonitis Achilles Acquired Deformity of Toe - Hammer Toe L eft Semi-rigid Acquired Deformity of Toe - Hammer Toe R ight Semi-rigid Acquired Deformity of Toe - Hammer Toe L eft Fourth Toe Acquired Deformity of Toe - Hammer Toe L eft Third Toe Acquired Deformity of Toe - Hammer Toe L eft Second Toe Acquired Deformity of Toe - Hammer Toe L eft Acquired Deformity of Toe - Hammer Toe R ight Fourth Toe Acquired Deformity of Toe - Hammer Toe R ight Third Toe Acquired Deformity of Toe - Hammer Toe R ight Second Toe Acquired Deformity of Toe - Hammer Toe R ight Tendonitis Achilles Acquired Deformity of Toe - Hammer Toe L eft Semi-rigid Acquired Deformity of Toe - Hammer Toe R ight Semi-rigid Acquired Deformity of Toe - Hammer Toe L eft Fourth Toe Acquired Deformity of Toe - Hammer Toe L eft Third Toe Acquired Deformity of Toe - Hammer Toe L eft Second Toe Acquired Deformity of Toe - Hammer Toe L eft Acquired Deformity of Toe - Hammer Toe R ight Fourth Toe Acquired Deformity of Toe - Hammer Toe R ight Third Toe Acquired Deformity of Toe - Hammer Toe R ight Second Toe Acquired Deformity of Toe - Hammer Toe R ight Tendonitis Achilles Acquired Deformity of Toe - Hammer Toe L eft Semi-rigid Acquired Deformity of Toe - Hammer Toe R ight Semi-rigid Acquired Deformity of Toe - Hammer Toe L eft Fourth Toe Acquired Deformity of Toe - Hammer Toe L eft Third Toe Acquired Deformity of Toe - Hammer Toe L eft Second Toe Acquired Deformity of Toe - Hammer Toe L eft Acquired Deformity of Toe - Hammer Toe R ight Fourth Toe Acquired Deformity of Toe - Hammer Toe R ight Third Toe Acquired Deformity of Toe - Hammer Toe R ight Second Toe Acquired Deformity of Toe - Hammer Toe R ight Tendonitis Achilles Acquired Deformity of Toe - Hammer Toe L eft Semi-rigid Acquired Deformity of Toe - Hammer Toe R ight Semi-rigid Acquired Deformity of Toe - Hammer Toe L eft Fourth Toe Acquired Deformity of Toe - Hammer Toe L eft Third Toe Acquired Deformity of Toe - Hammer Toe L eft Second Toe Acquired Deformity of Toe - Hammer Toe L eft Acquired Deformity of Toe - Hammer Toe R ight Fourth Toe Acquired Deformity of Toe - Hammer Toe R ight Third Toe Acquired Deformity of Toe - Hammer Toe R ight Second Toe Acquired Deformity of Toe - Hammer Toe R ight Tendonitis Achilles Acquired Deformity of Toe - Hammer Toe L eft Semi-rigid Acquired Deformity of Toe - Hammer Toe R ight Semi-rigid Acquired Deformity of Toe - Hammer Toe L eft Fourth Toe Acquired Deformity of Toe - Hammer Toe L eft Third Toe Acquired Deformity of Toe - Hammer Toe L eft Second Toe Acquired Deformity of Toe - Hammer Toe L eft Acquired Deformity of Toe - Hammer Toe R ight Fourth Toe Acquired Deformity of Toe - Hammer Toe R ight Third Toe Acquired Deformity of Toe - Hammer Toe R ight Second Toe Acquired Deformity of Toe - Hammer Toe R ight Tendonitis Achilles Acquired Deformity of Toe - Hammer Toe R ight Semi-rigid Acquired Deformity of Toe - Hammer Toe L eft Fourth Toe Acquired Deformity of Toe - Hammer Toe L eft Third Toe Acquired Deformity of Toe - Hammer Toe L eft Second Toe Acquired Deformity of Toe - Hammer Toe L eft Acquired Deformity of Toe - Hammer Toe R ight Fourth Toe Acquired Deformity of Toe - Hammer Toe R ight Third Toe Acquired Deformity of Toe - Hammer Toe R ight Second Toe Acquired Deformity of Toe - Hammer Toe R ight Tendonitis Achilles Acquired Deformity of Toe - Hammer Toe L eft Semi-rigid Acquired Deformity of Toe - Hammer Toe R ight Semi-rigid Acquired Deformity of Toe - Hammer Toe L eft Fourth Toe Acquired Deformity of Toe - Hammer Toe L eft Third Toe Acquired Deformity of Toe - Hammer Toe L eft Second Toe Acquired Deformity of Toe - Hammer Toe L eft Acquired Deformity of Toe - Hammer Toe R ight Fourth Toe Acquired Deformity of Toe - Hammer Toe R ight Third Toe Acquired Deformity of Toe - Hammer Toe R ight Second Toe Acquired Deformity of Toe - Hammer Toe R ight Tendonitis Achilles Acquired Deformity of Toe - Hammer Toe L eft Semi-rigid Acquired Deformity of Toe - Hammer Toe R ight Semi-rigid Acquired Deformity of Toe - Hammer Toe L eft Fourth Toe Acquired Deformity of Toe - Hammer Toe L eft Third Toe Acquired Deformity of Toe - Hammer Toe L eft Second Toe Acquired Deformity of Toe - Hammer Toe L eft Acquired Deformity of Toe - Hammer Toe R ight Fourth Toe Acquired Deformity of Toe - Hammer Toe R ight Third Toe Acquired Deformity of Toe - Hammer Toe R ight Second Toe Acquired Deformity of Toe - Hammer Toe R ight Tendonitis Achilles Acquired Deformity of Toe - Hammer Toe L eft Semi-rigid Acquired Deformity of Toe - Hammer Toe R ight Semi-rigid Acquired Deformity of Toe - Hammer Toe L eft Fourth Toe Acquired Deformity of Toe - Hammer Toe L eft Third Toe Acquired Deformity of Toe - Hammer Toe L eft Second Toe Acquired Deformity of Toe - Hammer Toe L eft Acquired Deformity of Toe - Hammer Toe R ight Fourth Toe Acquired Deformity of Toe - Hammer Toe R ight Third Toe Acquired Deformity of Toe - Hammer Toe R ight Second Toe Acquired Deformity of Toe - Hammer Toe R ight Tendonitis Achilles Acquired Deformity of Toe - Hammer Toe L eft Semi-rigid Acquired Deformity of Toe - Hammer Toe R ight Semi-rigid Acquired Deformity of Toe - Hammer Toe L eft Fourth Toe Acquired Deformity of Toe - Hammer Toe L eft Third Toe Acquired Deformity of Toe - Hammer Toe L eft Second Toe Acquired Deformity of Toe - Hammer Toe L eft Acquired Deformity of Toe - Hammer Toe R ight Fourth Toe Acquired Deformity of Toe - Hammer Toe R ight Third Toe Acquired Deformity of Toe - Hammer Toe R ight Second Toe Acquired Deformity of Toe - Hammer Toe R ight Tendonitis Achilles Acquired Deformity of Toe - Hammer Toe L eft Semi-rigid Acquired Deformity of Toe - Hammer Toe R ight Semi-rigid Acquired Deformity of Toe - Hammer Toe L eft Fourth Toe Acquired Deformity of Toe - Hammer Toe L eft Third Toe Acquired Deformity of Toe - Hammer Toe L eft Second Toe Acquired Deformity of Toe - Hammer Toe L eft Acquired Deformity of Toe - Hammer Toe R ight Fourth Toe Acquired Deformity of Toe - Hammer Toe R ight Third Toe Acquired Deformity of Toe - Hammer Toe R ight Second Toe Acquired Deformity of Toe - Hammer Toe R ight Tendonitis Achilles Acquired Deformity of Toe - Hammer Toe L eft Semi-rigid Acquired Deformity of Toe - Hammer Toe R ight Semi-rigid Acquired Deformity of Toe - Hammer Toe L eft Fourth Toe Acquired Deformity of Toe - Hammer Toe L eft Third Toe Acquired Deformity of Toe - Hammer Toe L eft Second Toe Acquired Deformity of Toe - Hammer Toe L eft Acquired Deformity of Toe - Hammer Toe R ight Fourth Toe Acquired Deformity of Toe - Hammer Toe R ight Third Toe Acquired Deformity of Toe - Hammer Toe R ight Second Toe Acquired Deformity of Toe - Hammer Toe R ight Tendonitis Achilles Acquired Deformity of Toe - Hammer Toe L eft Semi-rigid Acquired Deformity of Toe - Hammer Toe R ight Semi-rigid Acquired Deformity of Toe - Hammer Toe L eft Fourth Toe Acquired Deformity of Toe - Hammer Toe L eft Third Toe Acquired Deformity of Toe - Hammer Toe L eft Second Toe Acquired Deformity of Toe - Hammer Toe L eft Acquired Deformity of Toe - Hammer Toe R ight Fourth Toe Acquired Deformity of Toe - Hammer Toe R ight Third Toe Acquired Deformity of Toe - Hammer Toe R ight Second Toe Acquired Deformity of Toe - Hammer Toe R ight Tendonitis Achilles Acquired Deformity of Toe - Hammer Toe L eft Semi-rigid Acquired Deformity of Toe - Hammer Toe R ight Semi-rigid Acquired Deformity of Toe - Hammer Toe L eft Fourth Toe Acquired Deformity of Toe - Hammer Toe L eft Third Toe Acquired Deformity of Toe - Hammer Toe L eft Second Toe Acquired Deformity of Toe - Hammer Toe L eft Acquired Deformity of Toe - Hammer Toe R ight Fourth Toe Acquired Deformity of Toe - Hammer Toe R ight Third Toe Acquired Deformity of Toe - Hammer Toe R ight Second Toe Acquired Deformity of Toe - Hammer Toe R ight Tendonitis Achilles Acquired Deformity of Toe - Hammer Toe L eft Semi-rigid Acquired Deformity of Toe - Hammer Toe R ight Semi-rigid Acquired Deformity of Toe - Hammer Toe L eft Fourth Toe Acquired Deformity of Toe - Hammer Toe L eft Third Toe Acquired Deformity of Toe - Hammer Toe L eft Second Toe Acquired Deformity of Toe - Hammer Toe L eft Acquired Deformity of Toe - Hammer Toe R ight Fourth Toe Acquired Deformity of Toe - Hammer Toe R ight Third Toe Acquired Deformity of Toe - Hammer Toe R ight Second Toe Acquired Deformity of Toe - Hammer Toe R ight Tendonitis Achilles Acquired Deformity of Toe - Hammer Toe L eft Semi-rigid Acquired Deformity of Toe - Hammer Toe R ight Semi-rigid Acquired Deformity of Toe - Hammer Toe L eft Fourth Toe Acquired Deformity of Toe - Hammer Toe L eft Third Toe Acquired Deformity of Toe - Hammer Toe L eft Second Toe Acquired Deformity of Toe - Hammer Toe L eft Acquired Deformity of Toe - Hammer Toe R ight Fourth Toe Acquired Deformity of Toe - Hammer Toe R ight Third Toe Acquired Deformity of Toe - Hammer Toe R ight Second Toe Acquired Deformity of Toe - Hammer Toe R ight Tendonitis Achilles Acquired Deformity of Toe - Hammer Toe L eft Semi-rigid Acquired Deformity of Toe - Hammer Toe R ight Semi-rigid Acquired Deformity of Toe - Hammer Toe L eft Fourth Toe Acquired Deformity of Toe - Hammer Toe L eft Third Toe Acquired Deformity of Toe - Hammer Toe L eft Second Toe Acquired Deformity of Toe - Hammer Toe L eft Acquired Deformity of Toe - Hammer Toe R ight Fourth Toe Acquired Deformity of Toe - Hammer Toe R ight Third Toe Acquired Deformity of Toe - Hammer Toe R ight Second Toe Acquired Deformity of Toe - Hammer Toe R ight Tendonitis Achilles Acquired Deformity of Toe - Hammer Toe L eft Semi-rigid Acquired Deformity of Toe - Hammer Toe R ight Semi-rigid Acquired Deformity of Toe - Hammer Toe L eft Fourth Toe Acquired Deformity of Toe - Hammer Toe L eft Third Toe Acquired Deformity of Toe - Hammer Toe L eft Second Toe Acquired Deformity of Toe - Hammer Toe L eft Acquired Deformity of Toe - Hammer Toe R ight Fourth Toe Acquired Deformity of Toe - Hammer Toe R ight Third Toe Acquired Deformity of Toe - Hammer Toe R ight Second Toe Acquired Deformity of Toe - Hammer Toe R ight Tendonitis Achilles Acquired Deformity of Toe - Hammer Toe L eft Semi-rigid Acquired Deformity of Toe - Hammer Toe R ight Semi-rigid Acquired Deformity of Toe - Hammer Toe L eft Fourth Toe Acquired Deformity of Toe - Hammer Toe L eft Third Toe Acquired Deformity of Toe - Hammer Toe L eft Second Toe Acquired Deformity of Toe - Hammer Toe L eft Acquired Deformity of Toe - Hammer Toe R ight Fourth Toe Acquired Deformity of Toe - Hammer Toe R ight Fourth Toe Acquired Deformity of Toe - Hammer Toe R ight Third Toe Acquired Deformity of Toe - Hammer Toe R ight Second Toe Acquired Deformity of Toe - Hammer Toe R ight Tendonitis Achilles Acquired Deformity of Toe - Hammer Toe L eft Semi-rigid Acquired Deformity of Toe - Hammer Toe R ight Semi-rigid Acquired Deformity of Toe - Hammer Toe L eft Fourth Toe Acquired Deformity of Toe - Hammer Toe L eft Third Toe Acquired Deformity of Toe - Hammer Toe L eft Second Toe Acquired Deformity of Toe - Hammer Toe L eft Acquired Deformity of Toe - Hammer Toe R ight Fourth Toe Acquired Deformity of Toe - Hammer Toe R ight Third Toe Acquired Deformity of Toe - Hammer Toe R ight Second Toe Acquired Deformity of Toe - Hammer Toe R ight Tendonitis Achilles Acquired Deformity of Toe - Hammer Toe L eft Semi-rigid Acquired Deformity of Toe - Hammer Toe R ight Semi-rigid Acquired Deformity of Toe - Hammer Toe L eft Fourth Toe Acquired Deformity of Toe - Hammer Toe L eft Third Toe Acquired Deformity of Toe - Hammer Toe L eft Second Toe Acquired Deformity of Toe - Hammer Toe L eft Acquired Deformity of Toe - Hammer Toe R ight Fourth Toe Acquired Deformity of Toe - Hammer Toe R ight Third Toe Acquired Deformity of Toe - Hammer Toe R ight Second Toe Acquired Deformity of Toe - Hammer Toe R ight Tendonitis Achilles Acquired Deformity of Toe - Hammer Toe L eft Semi-rigid Acquired Deformity of Toe - Hammer Toe R ight Semi-rigid Acquired Deformity of Toe - Hammer Toe L eft Fourth Toe Acquired Deformity of Toe - Hammer Toe L eft Third Toe Acquired Deformity of Toe - Hammer Toe L eft Second Toe Acquired Deformity of Toe - Hammer Toe L eft Acquired Deformity of Toe - Hammer Toe R ight Fourth Toe Acquired Deformity of Toe - Hammer Toe R ight Third Toe Acquired Deformity of Toe - Hammer Toe R ight Second Toe Acquired Deformity of Toe - Hammer Toe R ight Tendonitis Achilles Acquired Deformity of Toe - Hammer Toe L eft Semi-rigid Acquired Deformity of Toe - Hammer Toe R ight Semi-rigid Acquired Deformity of Toe - Hammer Toe L eft Fourth Toe Acquired Deformity of Toe - Hammer Toe L eft Third Toe Acquired Deformity of Toe - Hammer Toe L eft Second Toe Acquired Deformity of Toe - Hammer Toe L eft Acquired Deformity of Toe - Hammer Toe R ight Fourth Toe Acquired Deformity of Toe - Hammer Toe R ight Third Toe Acquired Deformity of Toe - Hammer Toe R ight Second Toe Acquired Deformity of Toe - Hammer Toe R ight Tendonitis Achilles Acquired Deformity of Toe - Hammer Toe L eft Semi-rigid Acquired Deformity of Toe - Hammer Toe R ight Semi-rigid Acquired Deformity of Toe - Hammer Toe L eft Fourth Toe Acquired Deformity of Toe - Hammer Toe L eft Third Toe Acquired Deformity of Toe - Hammer Toe L eft Second Toe Acquired Deformity of Toe - Hammer Toe L eft Acquired Deformity of Toe - Hammer Toe R ight Fourth Toe Acquired Deformity of Toe - Hammer Toe R ight Third Toe Acquired Deformity of Toe - Hammer Toe R ight Second Toe Acquired Deformity of Toe - Hammer Toe R ight Tendonitis Achilles Acquired Deformity of Toe - Hammer Toe L eft Semi-rigid Acquired Deformity of Toe - Hammer Toe R ight Semi-rigid Acquired Deformity of Toe - Hammer Toe L eft Fourth Toe Acquired Deformity of Toe - Hammer Toe L eft Third Toe Acquired Deformity of Toe - Hammer Toe L eft Second Toe Acquired Deformity of Toe - Hammer Toe L eft Acquired Deformity of Toe - Hammer Toe R ight Fourth Toe Acquired Deformity of Toe - Hammer Toe R ight Third Toe Acquired Deformity of Toe - Hammer Toe R ight Second Toe Acquired Deformity of Toe - Hammer Toe R ight Tendonitis Achilles Acquired Deformity of Toe - Hammer Toe L eft Semi-rigid Acquired Deformity of Toe - Hammer Toe R ight Semi-rigid Acquired Deformity of Toe - Hammer Toe L eft Fourth Toe Acquired Deformity of Toe - Hammer Toe L eft Third Toe Acquired Deformity of Toe - Hammer Toe L eft Second Toe Acquired Deformity of Toe - Hammer Toe L eft Acquired Deformity of Toe - Hammer Toe R ight Fourth Toe Acquired Deformity of Toe - Hammer Toe R ight Third Toe Acquired Deformity of Toe - Hammer Toe R ight Second Toe Acquired Deformity of Toe - Hammer Toe R ight Tendonitis Achilles Acquired Deformity of Toe - Hammer Toe L eft Semi-rigid Acquired Deformity of Toe - Hammer Toe R ight Semi-rigid Acquired Deformity of Toe - Hammer Toe L eft Fourth Toe Acquired Deformity of Toe - Hammer Toe L eft Third Toe Acquired Deformity of Toe - Hammer Toe L eft Second Toe Acquired Deformity of Toe - Hammer Toe L eft Acquired Deformity of Toe - Hammer Toe R ight Fourth Toe Acquired Deformity of Toe - Hammer Toe L eft Semi-rigid Acquired Deformity of Toe - Hammer Toe R ight Third Toe Acquired Deformity of Toe - Hammer Toe R ight Second Toe Acquired Deformity of Toe - Hammer Toe R ight Tendonitis Achilles Acquired Deformity of Toe - Hammer Toe L eft Semi-rigid Acquired Deformity of Toe - Hammer Toe R ight Semi-rigid Acquired Deformity of Toe - Hammer Toe L eft Fourth Toe Acquired Deformity of Toe - Hammer Toe L eft Third Toe Acquired Deformity of Toe - Hammer Toe L eft Second Toe Acquired Deformity of Toe - Hammer Toe L eft Acquired Deformity of Toe - Hammer Toe R ight Fourth Toe Acquired Deformity of Toe - Hammer Toe R ight Third Toe Acquired Deformity of Toe - Hammer Toe R ight Second Toe Acquired Deformity of Toe - [facility] Tend[facility] Achilles Acquired Deformity of Toe - Hammer Toe L eft Semi-rigid Acquired Deformity of Toe - Hammer Toe R ight Semi-rigid Acquired Deformity of Toe - Hammer Toe L eft Fourth Toe Acquired Deformity of Toe - Hammer Toe L eft Third Toe Acquired Deformity of Toe - Hammer Toe L eft Second Toe Acquired Deformity of Toe - Hammer Toe L eft Acquired Deformity of Toe - Hammer Toe R ight Fourth Toe Acquired Deformity of Toe - Hammer Toe R ight Third Toe Acquired Deformity of Toe - Hammer Toe R ight Second Toe Acquired Deformity of Toe - Hammer Toe R ight Tendonitis Achilles Acquired Deformity of Toe - Hammer Toe L eft Semi-rigid Acquired Deformity of Toe - Hammer Toe R ight Semi-rigid Acquired Deformity of Toe - Hammer Toe L eft Fourth Toe Acquired Deformity of Toe - Hammer Toe L eft Third Toe Acquired Deformity of Toe - Hammer Toe L eft Second Toe Acquired Deformity of Toe - Hammer Toe L eft Acquired Deformity of Toe - Hammer Toe R ight Fourth Toe Acquired Deformity of Toe - Hammer Toe R ight Third Toe Acquired Deformity of Toe - Hammer Toe R ight Second Toe Acquired Deformity of Toe - Hammer Toe R ight Tendonitis Achilles Acquired Deformity of Toe - Hammer Toe L eft Semi-rigid Acquired Deformity of Toe - Hammer Toe R ight Semi-rigid Acquired Deformity of Toe - Hammer Toe L eft Fourth Toe Acquired Deformity of Toe - Hammer Toe L eft Third Toe Acquired Deformity of Toe - Hammer Toe L eft Second Toe Acquired Deformity of Toe - Hammer Toe L eft Acquired Deformity of Toe - Hammer Toe R ight Fourth Toe Acquired Deformity of Toe - Hammer Toe R ight Third Toe Acquired Deformity of Toe - Hammer Toe R ight Second Toe Acquired Deformity of Toe - Hammer Toe R ight Tendonitis Achilles Acquired Deformity of Toe - Hammer Toe L eft Semi-rigid Acquired Deformity of Toe - Hammer Toe R ight Semi-rigid Acquired Deformity of Toe - Hammer Toe L eft Fourth Toe Acquired Deformity of Toe - Hammer Toe L eft Third Toe Acquired Deformity of Toe - Hammer Toe L eft Second Toe Acquired Deformity of Toe - Hammer Toe L eft Acquired Deformity of Toe - Hammer Toe R ight Fourth Toe Acquired Deformity of Toe - Hammer Toe R ight Third Toe Acquired Deformity of Toe - Hammer Toe R ight Second Toe Acquired Deformity of Toe - Hammer Toe R ight Tendonitis Achilles Acquired Deformity of Toe - Hammer Toe L eft Semi-rigid Acquired Deformity of Toe - Hammer Toe R ight Semi-rigid Acquired Deformity of Toe - Hammer Toe L eft Fourth Toe Acquired Deformity of Toe - Hammer Toe L eft Third Toe Acquired Deformity of Toe - Hammer Toe L eft Second Toe Acquired Deformity of Toe - Hammer Toe L eft Acquired Deformity of Toe - Hammer Toe R ight Fourth Toe Acquired Deformity of Toe - Hammer Toe R ight Third Toe Acquired Deformity of Toe - Hammer Toe R ight Second Toe Acquired Deformity of Toe - Hammer Toe R ight Tendonitis Achilles Acquired Deformity of Toe - Hammer Toe L eft Semi-rigid Acquired Deformity of Toe - Hammer Toe R ight Semi-rigid Acquired Deformity of Toe - Hammer Toe L eft Fourth Toe Acquired Deformity of Toe - Hammer Toe L eft Third Toe Acquired Deformity of Toe - Hammer Toe L eft Second Toe Acquired Deformity of Toe - Hammer Toe L eft Acquired Deformity of Toe - Hammer Toe R ight Fourth Toe Acquired Deformity of Toe - Hammer Toe R ight Third Toe Acquired Deformity of Toe - Hammer Toe R ight Second Toe Acquired Deformity of Toe - Hammer Toe R ight Tendonitis Achilles Acquired Deformity of Toe - Hammer Toe L eft Semi-rigid Acquired Deformity of Toe - Hammer Toe R ight Semi-rigid Acquired Deformity of Toe - Hammer Toe L eft Fourth Toe Acquired Deformity of Toe - Hammer Toe L eft Third Toe Acquired Deformity of Toe - Hammer Toe L eft Second Toe Acquired Deformity of Toe - Hammer Toe L eft Acquired Deformity of Toe - Hammer Toe R ight Fourth Toe Acquired Deformity of Toe - Hammer Toe R ight Third Toe Acquired Deformity of Toe - Hammer Toe R ight Second Toe Acquired Deformity of Toe - Hammer Toe R ight Tendonitis Achilles Outpatient 08/10/2018 [facility] 04:27:00 PM Medical EDT Center Outpatient<t Attender: Wu 08/10/2018 [facility] 02:51:00 PM ([id number] 11:59:00 PM Center) TIENT EDT ADVOCACY</td ><td>Melissa Mcgill</td> <td>[facility]</td>< td> 9</td><td></ td> Outpatient 08/10/2018 [facility] 12:00:00 AM Medical EDT Center Attender: Mental 08/09/2018 [facility] 11:55:00 AM ([facility] EDT [facility] 08/09/2018 Medical 11:55:00 AM Center) EDT OutpatientOF Attender: Mental 08/03/2018 [facility] ([facility] ENT VISIT, [facility] EDT [facility] EST nder: 08/03/2018 [facility] 01:15:00 PM Center) [place] EDT Outpatient<t Attender: Wu 07/28/2018 [facility] 03:20:00 PM (Annia King ID="[facility] EDT - [facility] rTypeDesFormerly [facility] 07/28/2018 Health [id number]">*N 11:59:00 PM Center) o EDT Show*</td><t d>[address]</td><td>[facility]</td>< td> 9</td><td></ td> Outpatient<t Attender: Wu 07/28/2018 [facility] 02:00:00 PM (Annia King ID="[facility] [place] [facility] EDT - Neighborhood rTypeDesFormerly [facility] 07/28/2018 Health [id number]">OF 11:59:00 PM Center) FICE EDT VISIT</td><t d>[facility]</td><td> [facility]</td>< td> 9</td><td></ td> Outpatient<t Attender: Wu 07/22/2018 [facility] 12:41:00 PM (Annia King ID[facility] - Neighborhood rTypeDescrip [employer] Center 07/22/2018 [facility]">*O 11:59:00 PM Center) [facility]*</td EDT ><td>BILLIE DION [facility]</td><td> [facility]</td>< td> 9</td><td></ td> Outpatient<t Attender: Wu 07/21/2018 [facility] in [facility] d [facility] 01:30:00 PM LimbLeukopeniaAnemiaPain in (Bruin ID="encounte [facility] EDT - LimbLeukopeniaAnemiaPai n in Neighborhood [facility] 07/21/2018 LimbLeukopeniaAnemiaPai n in [facility]62">[place] 04:23:50 PM LimbLeukopeniaAnemiaPa in in Center) LKINS</td><t EDT LimbLeukopeniaAnemiaPai n in d>[facility] LimbLeukopeniaAnemiaPain in [facility] LimbLeukopeniaAnemiaPain in [facility]</td><td> LimbLeukopeniaAnemiaPai n in [place] LimbLeukopeniaAnemiaPain in [facility] LimbLeukopeniaAnemiaPain in [facility] LimbLeukopeniaAnemiaPain in Center</td>< LimbLeukopeniaAnemiaPai n in td> LimbLeukopeniaAnemiaPai n in 9</td><td><c LimbLeukopeniaAnemiaPai n in ontent LimbLeukopeniaAnemiaPain in ID="encounte LimbLeukopeniaAnemiaPai n in rDiagnosisID LimbLeukopeniaAnemiaPai n in 62-0">Diabet LimbLeukopeniaAnemiaPai n in es LimbLeukopeniaAnemiaPain in Mellitus</co LimbLeukopeniaAnemiaPai n in ntent>, LimbLeukopeniaAnemiaPain in <content LimbLeukopeniaAnemiaPain in ID="encounte LimbLeukopeniaAnemiaPai n in rDiagnosisID LimbLeukopeniaAnemiaPai n in 62-1">Marinelli LimbLeukopeniaAnemiaPai n in ry Artery LimbLeukopeniaAnemiaPain in Disease</con LimbLeukopeniaAnemiaPai n in tent>, LimbLeukopeniaAnemiaPain in <content LimbLeukopeniaAnemiaPain in ID="encounte LimbLeukopeniaAnemiaPai n in rDiagnosisID LimbLeukopeniaAnemiaPai n in 62-2">Anemia LimbLeukopeniaAnemiaPai n in </content>, LimbLeukopeniaAnemiaPain in <content LimbLeukopeniaAnemiaPain in ID="encounte LimbLeukopeniaAnemiaPai n in rDiagnosisID LimbLeukopeniaAnemiaPai n in 62-3">Leukop LimbLeukopeniaAnemiaPai n in enia</conten LimbLeukopeniaAnemiaPai n in t>, <content LimbLeukopeniaAnemiaPai n in ID="encounte LimbLeukopeniaAnemiaPai n in rDiagnosisID LimbLeukopeniaAnemiaPai n in 62-4">Pain LimbLeukopeniaAnemiaPain in in LimbLeukopeniaAnemiaPain in Limb</conten LimbLeukopeniaAnemiaPai n in t></td> LimbLeukopeniaAnemiaPain in LimbLeukopeniaAnemiaPain in LimbLeukopeniaAnemiaPain in LimbLeukopeniaAnemiaPain in LimbLeukopeniaAnemiaPain in LimbLeukopeniaAnemiaPain in LimbLeukopeniaAnemiaPain in LimbLeukopeniaAnemiaPain in LimbLeukopeniaAnemiaPain in LimbLeukopeniaAnemiaPain in LimbLeukopeniaAnemiaPain in LimbLeukopeniaAnemiaCoron napoleon Artery DiseaseDiabetes MellitusCoronary Artery DiseaseDiabetes MellitusCoronary Artery DiseaseDiabetes MellitusCoronary Artery DiseaseDiabetes MellitusCoronary Artery DiseaseDiabetes MellitusCoronary Artery DiseaseDiabetes MellitusCoronary Artery DiseaseDiabetes MellitusCoronary Artery DiseaseDiabetes MellitusCoronary Artery DiseaseDiabetes MellitusCoronary Artery DiseaseDiabetes MellitusCoronary Artery DiseaseDiabetes MellitusCoronary Artery DiseaseDiabetes MellitusCoronary Artery DiseaseDiabetes MellitusCoronary Artery DiseaseDiabetes MellitusCoronary Artery DiseaseDiabetes MellitusCoronary Artery DiseaseDiabetes MellitusCoronary Artery DiseaseDiabetes MellitusCoronary Artery DiseaseDiabetes MellitusCoronary Artery DiseaseDiabetes MellitusCoronary Artery DiseaseDiabetes MellitusCoronary Artery DiseaseDiabetes MellitusCoronary Artery DiseaseDiabetes MellitusCoronary Artery DiseaseDiabetes MellitusCoronary Artery DiseaseDiabetes MellitusCoronary Artery DiseaseDiabetes MellitusCoronary Artery DiseaseDiabetes MellitusCoronary Artery DiseaseDiabetes MellitusCoronary Artery DiseaseDiabetes MellitusCoronary Artery DiseaseDiabetes MellitusCoronary Artery DiseaseDiabetes MellitusCoronary Artery DiseaseDiabetes MellitusCoronary Artery DiseaseDiabetes MellitusCoronary Artery DiseaseDiabetes MellitusCoronary Artery DiseaseDiabetes MellitusCoronary Artery DiseaseDiabetes MellitusCoronary Artery DiseaseDiabetes MellitusCoronary Artery DiseaseDiabetes MellitusCoronary Artery DiseaseDiabetes MellitusCoronary Artery DiseaseDiabetes MellitusCoronary Artery DiseaseDiabetes MellitusCoronary Artery DiseaseDiabetes MellitusCoronary Artery DiseaseDiabetes MellitusCoronary Artery DiseaseDiabetes MellitusCoronary Artery DiseaseDiabetes MellitusCoronary Artery DiseaseDiabetes MellitusCoronary Artery DiseaseDiabetes MellitusCoronary Artery DiseaseDiabetes MellitusCoronary Artery DiseaseDiabetes MellitusCoronary Artery DiseaseDiabetes MellitusCoronary Artery DiseaseDiabetes MellitusCoronary Artery DiseaseDiabetes MellitusCoronary Artery DiseaseDiabetes MellitusCoronary Artery DiseaseDiabetes MellitusCoronary Artery DiseaseDiabetes MellitusCoronary Artery DiseaseDiabetes MellitusCoronary Artery DiseaseDiabetes Mellitus Pain in Limb Leukopenia Anemia Pain in Limb Leukopenia Anemia Pain in Limb Leukopenia Anemia Pain in Limb Leukopenia Anemia Pain in Limb Leukopenia Anemia Pain in Limb Leukopenia Anemia Pain in Limb Leukopenia Anemia Pain in Limb Leukopenia Anemia Pain in Limb Leukopenia Anemia Pain in Limb Leukopenia Anemia Pain in Limb Leukopenia Anemia Pain in Limb Leukopenia Anemia Pain in Limb Leukopenia Anemia Pain in Limb Leukopenia Anemia Pain in Limb Leukopenia Anemia Pain in Limb Leukopenia Anemia Pain in Limb Leukopenia Anemia Pain in Limb Leukopenia Anemia Pain in Limb Leukopenia Anemia Pain in Limb Leukopenia Anemia Pain in Limb Leukopenia Anemia Pain in Limb Leukopenia Anemia Pain in Limb Leukopenia Anemia Pain in Limb Leukopenia Anemia Pain in Limb Leukopenia Anemia Pain in Limb Leukopenia Anemia Pain in Limb Leukopenia Anemia Pain in Limb Leukopenia Anemia Pain in Limb Leukopenia Anemia Pain in Limb Leukopenia Anemia Pain in Limb Leukopenia Anemia Pain in Limb Leukopenia Anemia Pain in Limb Leukopenia Anemia Pain in Limb Leukopenia Anemia Pain in Limb Leukopenia Anemia Pain in Limb Leukopenia Anemia Pain in Limb Leukopenia Anemia Pain in Limb Leukopenia Anemia Pain in Limb Leukopenia Anemia Pain in Limb Leukopenia Anemia Pain in Limb Leukopenia Anemia Pain in Limb Leukopenia Anemia Pain in Limb Leukopenia Anemia Pain in Limb Leukopenia Anemia Pain in Limb Leukopenia Anemia Pain in Limb Leukopenia Anemia Pain in Limb Leukopenia Anemia Pain in Limb Leukopenia Anemia Pain in Limb Leukopenia Anemia Pain in Limb Leukopenia Anemia Pain in Limb Leukopenia Anemia Pain in Limb Leukopenia Anemia Pain in Limb Leukopenia Anemia Pain in Limb Leukopenia Anemia Pain in Limb Leukopenia Anemia Pain in Limb Leukopenia Anemia Coronary Artery Disease Diabetes Mellitus Coronary Artery Disease Diabetes Mellitus Coronary Artery Disease Diabetes Mellitus Coronary Artery Disease Diabetes Mellitus Coronary Artery Disease Diabetes Mellitus Coronary Artery Disease Diabetes Mellitus Coronary Artery Disease Diabetes Mellitus Coronary Artery Disease Diabetes Mellitus Coronary Artery Disease Diabetes Mellitus Coronary Artery Disease Diabetes Mellitus Coronary Artery Disease Diabetes Mellitus Coronary Artery Disease Diabetes Mellitus Coronary Artery Disease Diabetes Mellitus Coronary Artery Disease Diabetes Mellitus Coronary Artery Disease Diabetes Mellitus Coronary Artery Disease Diabetes Mellitus Coronary Artery Disease Diabetes Mellitus Coronary Artery Disease Diabetes Mellitus Coronary Artery Disease Diabetes Mellitus Coronary Artery Disease Diabetes Mellitus Coronary Artery Disease Diabetes Mellitus Coronary Artery Disease Diabetes Mellitus Coronary Artery Disease Diabetes Mellitus Coronary Artery Disease Diabetes Mellitus Coronary Artery Disease Diabetes Mellitus Coronary Artery Disease Diabetes Mellitus Coronary Artery Disease Diabetes Mellitus Coronary Artery Disease Diabetes Mellitus Coronary Artery Disease Diabetes Mellitus Coronary Artery Disease Diabetes Mellitus Coronary Artery Disease Diabetes Mellitus Coronary Artery Disease Diabetes Mellitus Coronary Artery Disease Diabetes Mellitus Coronary Artery Disease Diabetes Mellitus Coronary Artery Disease Diabetes Mellitus Coronary Artery Disease Diabetes Mellitus Coronary Artery Disease Diabetes Mellitus Coronary Artery Disease Diabetes Mellitus Coronary Artery Disease Diabetes Mellitus Coronary Artery Disease Diabetes Mellitus Coronary Artery Disease Diabetes Mellitus Coronary Artery Disease Diabetes Mellitus Coronary Artery Disease Diabetes Mellitus Coronary Artery Disease Diabetes Mellitus Coronary Artery Disease Diabetes Mellitus Coronary Artery Disease Diabetes Mellitus Coronary Artery Disease Diabetes Mellitus Coronary Artery Disease Diabetes Mellitus Coronary Artery Disease Diabetes Mellitus Coronary Artery Disease Diabetes Mellitus Coronary Artery Disease Diabetes Mellitus Coronary Artery Disease Diabetes Mellitus Coronary Artery Disease Diabetes Mellitus Coronary Artery Disease Diabetes Mellitus Coronary Artery Disease Diabetes Mellitus Coronary Artery Disease Diabetes Mellitus Outpatient<td Attender: Wu 07/21/2018 [place] ID="[id number]">PATIENT [facility] 09:47 :00 AM (Annia MCLEOD</td><td>[facility] EDT - [facility]</td><td>[facility] 2018 Health Center</td><td>07/21/2018</td><td></td> 11:59:0 0 PM Center) EDT Outpatient<td Attender: Wu 07/18/2018 A RADHA ID="[id number]">[facility] PM s (Bruin /td><td>[facility] EDT - s Neighborhood [facility]</td><td>[facility] 07/18/2018 Health Center</td><td>07/18/2018</td><td><content 03:4 5:09 PM s Center) ID="[id number]">Diabetes EDT s Mellitus</content>, <content / ID="[id number]">Obesity</con i tent>, <content n ID="[id number]">Hypertension t (systemic)</content>, <content e ID="[id number]">Assess/inter r vention Patient Screened For Future Fall v Risk</content></td> e n t i o n P a t i e n t S c r e e n e d F o r F u t u r e F a l l R i s k A s s e s s / i n t e r v e n t i o n P a t i e n t S c r e e n e d F o r F u t u r e F a l l R i s k A s s e s s / i n t e r v e n t i o n P a t i e n t S c r e e n e d F o r F u t u r e F a l l R i s k A s s e s s / i n t e r v e n t i o n P a t i e n t S c r e e n e d F o r F u t u r e F a l l R i s k A s s e s s / i n t e r v e n t i o n P a t i e n t S c r e e n e d F o r F u t u r e F a l l R i s k A s s e s s / i n t e r v e n t i o n P a t i e n t S c r e e n e d F o r F u t u r e F a l l R i s k A s s e s s / i n t e r v e n t i o n P a t i e n t S c r e e n e d F o r F u t u r e F a l l R i s k A s s e s s / i n t e r v e n t i o n P a t i e n t S c r e e n e d F o r F u t u r e F a l l R i s k A s s e s s / i n t e r v e n t i o n P a t i e n t S c r e e n e d F o r F u t u r e F a l l R i s k A s s e s s / i n t e r v e n t i o n P a t i e n t S c r e e n e d F o r F u t u r e F a l l R i s k A s s e s s / i n t e r v e n t i o n P a t i e n t S c r e e n e d F o r F u t u r e F a l l R i s k A s s e s s / i n t e r v e n t i o n P a t i e n t S c r e e n e d F o r F u t u r e F a l l R i s k A s s e s s / i n t e r v e n t i o n P a t i e n t S c r e e n e d F o r F u t u r e F a l l R i s k A s s e s s / i n t e r v e n t i o n P a t i e n t S c r e e n e d F o r F u t u r e F a l l R i s k A s s e s s / i n t e r v e n t i o n P a t i e n t S c r e e n e d F o r F u t u r e F a l l R i s k A s s e s s / i n t e r v e n t i o n P a t i e n t S c r e e n e d F o r F u t u r e F a l l R i s k A s s e s s / i n t e r v e n t i o n P a t i e n t S c r e e n e d F o r F u t u r e F a l l R i s k A s s e s s / i n t e r v e n t i o n P a t i e n t S c r e e n e d F o r F u t u r e F a l l R i s k A s s e s s / i n t e r v e n t i o n P a t i e n t S c r e e n e d F o r F u t u r e F a l l R i s k A s s e s s / i n t e r v e n t i o n P a t i e n t S c r e e n e d F o r F u t u r e F a l l R i s k A s s e s s / i n t e r v e n t i o n P a t i e n t S c r e e n e d F o r F u t u r e F a l l R i s k A s s e s s / i n t e r v e n t i o n P a t i e n t S c r e e n e d F o r F u t u r e F a l l R i s k A s s e s s / i n t e r v e n t i o n P a t i e n t S c r e e n e d F o r F u t u r e F a l l R i s k A s s e s s / i n t e r v e n t i o n P a t i e n t S c r e e n e d F o r F u t u r e F a l l R i s k O b e s i t y O b e s i t y O b e s i t y O b e s i t y O b e s i t y O b e s i t y O b e s i t y O b e s i t y O b e s i t y O b e s i t y O b e s i t y O b e s i t y O b e s i t y O b e s i t y O b e s i t y O b e s i t y O b e s i t y O b e s i t y O b e s i t y O b e s i t y O b e s i t y O b e s i t y O b e s i t y O b e s i t y A s s e s s / i n t e r v e n t i o n P a t i e n t S c r e e n e d F o r F u t u r e F a l l R i s k O b e s i t y A s s e s s / i n t e r v e n t i o n P a t i e n t S c r e e n e d F o r F u t u r e F a l l R i s k O b e s i t y A s s e s s / i n t e r v e n t i o n P a t i e n t S c r e e n e d F o r F u t u r e F a l l R i s k O b e s i t y A s s e s s / i n t e r v e n t i o n P a t i e n t S c r e e n e d F o r F u t u r e F a l l R i s k O b e s i t y A s s e s s / i n t e r v e n t i o n P a t i e n t S c r e e n e d F o r F u t u r e F a l l R i s k O b e s i t y A s s e s s / i n t e r v e n t i o n P a t i e n t S c r e e n e d F o r F u t u r e F a l l R i s k O b e s i t y A s s e s s / i n t e r v e n t i o n P a t i e n t S c r e e n e d F o r F u t u r e F a l l R i s k O b e s i t y A s s e s s / i n t e r v e n t i o n P a t i e n t S c r e e n e d F o r F u t u r e F a l l R i s k O b e s i t y A s s e s s / i n t e r v e n t i o n P a t i e n t S c r e e n e d F o r F u t u r e F a l l R i s k O b e s i t y A s s e s s / i n t e r v e n t i o n P a t i e n t S c r e e n e d F o r F u t u r e F a l l R i s k O b e s i t y A s s e s s / i n t e r v e n t i o n P a t i e n t S c r e e n e d F o r F u t u r e F a l l R i s k O b e s i t y A s s e s s / i n t e r v e n t i o n P a t i e n t S c r e e n e d F o r F u t u r e F a l l R i s k O b e s i t y A s s e s s / i n t e r v e n t i o n P a t i e n t S c r e e n e d F o r F u t u r e F a l l R i s k O b e s i t y A s s e s s / i n t e r v e n t i o n P a t i e n t S c r e e n e d F o r F u t u r e F a l l R i s k O b e s i t y A s s e s s / i n t e r v e n t i o n P a t i e n t S c r e e n e d F o r F u t u r e F a l l R i s k O b e s i t y A s s e s s / i n t e r v e n t i o n P a t i e n t S c r e e n e d F o r F u t u r e F a l l R i s k O b e s i t y A s s e s s / i n t e r v e n t i o n P a t i e n t S c r e e n e d F o r F u t u r e F a l l R i s k O b e s i t y A s s e s s / i n t e r v e n t i o n P a t i e n t S c r e e n e d F o r F u t u r e F a l l R i s k O b e s i t y A s s e s s / i n t e r v e n t i o n P a t i e n t S c r e e n e d F o r F u t u r e F a l l R i s k O b e s i t y A s s e s s / i n t e r v e n t i o n P a t i e n t S c r e e n e d F o r F u t u r e F a l l R i s k O b e s i t y A s s e s s / i n t e r v e n t i o n P a t i e n t S c r e e n e d F o r F u t u r e F a l l R i s k O b e s i t y A s s e s s / i n t e r v e n t i o n P a t i e n t S c r e e n e d F o r F u t u r e F a l l R i s k O b e s i t y A s s e s s / i n t e r v e n t i o n P a t i e n t S c r e e n e d F o r F u t u r e F a l l R i s k O b e s i t y A s s e s s / i n t e r v e n t i o n P a t i e n t S c r e e n e d F o r F u t u r e F a l l R i s k O b e s i t y A s s e s s / i n t e r v e n t i o n P a t i e n t S c r e e n e d F o r F u t u r e F a l l R i s k O b e s i t y A s s e s s / i n t e r v e n t i o n P a t i e n t S c r e e n e d F o r F u t u r e F a l l R i s k O b e s i t y A s s e s s / i n t e r v e n t i o n P a t i e n t S c r e e n e d F o r F u t u r e F a l l R i s k O b e s i t y A s s e s s / i n t e r v e n t i o n P a t i e n t S c r e e n e d F o r F u t u r e F a l l R i s k O b e s i t y A s s e s s / i n t e r v e n t i o n P a t i e n t S c r e e n e d F o r F u t u r e F a l l R i s k O b e s i t y A s s e s s / i n t e r v e n t i o n P a t i e n t S c r e e n e d F o r F u t u r e F a l l R i s k O b e s i t y A s s e s s / i n t e r v e n t i o n P a t i e n t S c r e e n e d F o r F u t u r e F a l l R i s k O b e s i t y A s s e s s / i n t e r v e n t i o n P a t i e n t S c r e e n e d F o r F u t u r e F a l l R i s k O b e s i t y H y p e r t e n s i o n ( s y s t e m i c ) D i a b e t e s M e l l i t u s H y p e r t e n s i o n ( s y s t e m i c ) D i a b e t e s M e l l i t u s H y p e r t e n s i o n ( s y s t e m i c ) D i a b e t e s M e l l i t u s H y p e r t e n s i o n ( s y s t e m i c ) D i a b e t e s M e l l i t u s H y p e r t e n s i o n ( s y s t e m i c ) D i a b e t e s M e l l i t u s H y p e r t e n s i o n ( s y s t e m i c ) D i a b e t e s M e l l i t u s H y p e r t e n s i o n ( s y s t e m i c ) D i a b e t e s M e l l i t u s H y p e r t e n s i o n ( s y s t e m i c ) D i a b e t e s M e l l i t u s H y p e r t e n s i o n ( s y s t e m i c ) D i a b e t e s M e l l i t u s H y p e r t e n s i o n ( s y s t e m i c ) D i a b e t e s M e l l i t u s H y p e r t e n s i o n ( s y s t e m i c ) D i a b e t e s M e l l i t u s H y p e r t e n s i o n ( s y s t e m i c ) D i a b e t e s M e l l i t u s H y p e r t e n s i o n ( s y s t e m i c ) D i a b e t e s M e l l i t u s H y p e r t e n s i o n ( s y s t e m i c ) D i a b e t e s M e l l i t u s H y p e r t e n s i o n ( s y s t e m i c ) D i a b e t e s M e l l i t u s H y p e r t e n s i o n ( s y s t e m i c ) D i a b e t e s M e l l i t u s H y p e r t e n s i o n ( s y s t e m i c ) D i a b e t e s M e l l i t u s H y p e r t e n s i o n ( s y s t e m i c ) D i a b e t e s M e l l i t u s H y p e r t e n s i o n ( s y s t e m i c ) D i a b e t e s M e l l i t u s H y p e r t e n s i o n ( s y s t e m i c ) D i a b e t e s M e l l i t u s H y p e r t e n s i o n ( s y s t e m i c ) D i a b e t e s M e l l i t u s H y p e r t e n s i o n ( s y s t e m i c ) D i a b e t e s M e l l i t u s H y p e r t e n s i o n ( s y s t e m i c ) D i a b e t e s M e l l i t u s H y p e r t e n s i o n ( s y s t e m i c ) D i a b e t e s M e l l i t u s H y p e r t e n s i o n ( s y s t e m i c ) D i a b e t e s M e l l i t u s H y p e r t e n s i o n ( s y s t e m i c ) D i a b e t e s M e l l i t u s H y p e r t e n s i o n ( s y s t e m i c ) D i a b e t e s M e l l i t u s H y p e r t e n s i o n ( s y s t e m i c ) D i a b e t e s M e l l i t u s H y p e r t e n s i o n ( s y s t e m i c ) D i a b e t e s M e l l i t u s H y p e r t e n s i o n ( s y s t e m i c ) D i a b e t e s M e l l i t u s H y p e r t e n s i o n ( s y s t e m i c ) D i a b e t e s M e l l i t u s H y p e r t e n s i o n ( s y s t e m i c ) D i a b e t e s M e l l i t u s H y p e r t e n s i o n ( s y s t e m i c ) D i a b e t e s M e l l i t u s H y p e r t e n s i o n ( s y s t e m i c ) D i a b e t e s M e l l i t u s H y p e r t e n s i o n ( s y s t e m i c ) D i a b e t e s M e l l i t u s H y p e r t e n s i o n ( s y s t e m i c ) D i a b e t e s M e l l i t u s H y p e r t e n s i o n ( s y s t e m i c ) D i a b e t e s M e l l i t u s H y p e r t e n s i o n ( s y s t e m i c ) D i a b e t e s M e l l i t u s H y p e r t e n s i o n ( s y s t e m i c ) D i a b e t e s M e l l i t u s H y p e r t e n s i o n ( s y s t e m i c ) D i a b e t e s M e l l i t u s H y p e r t e n s i o n ( s y s t e m i c ) D i a b e t e s M e l l i t u s H y p e r t e n s i o n ( s y s t e m i c ) D i a b e t e s M e l l i t u s H y p e r t e n s i o n ( s y s t e m i c ) D i a b e t e s M e l l i t u s H y p e r t e n s i o n ( s y s t e m i c ) D i a b e t e s M e l l i t u s H y p e r t e n s i o n ( s y s t e m i c ) D i a b e t e s M e l l i t u s H y p e r t e n s i o n ( s y s t e m i c ) D i a b e t e s M e l l i t u s H y p e r t e n s i o n ( s y s t e m i c ) D i a b e t e s M e l l i t u s H y p e r t e n s i o n ( s y s t e m i c ) D i a b e t e s M e l l i t u s H y p e r t e n s i o n ( s y s t e m i c ) D i a b e t e s M e l l i t u s H y p e r t e n s i o n ( s y s t e m i c ) D i a b e t e s M e l l i t u s H y p e r t e n s i o n ( s y s t e m i c ) D i a b e t e s M e l l i t u s H y p e r t e n s i o n ( s y s t e m i c ) D i a b e t e s M e l l i t u s H y p e r t e n s i o n ( s y s t e m i c ) D i a b e t e s M e l l i t u s H y p e r t e n s i o n ( s y s t e m i c ) D i a b e t e s M e l l i t u s H y p e r t e n s i o n ( s y s t e m i c ) D i a b e t e s M e l l i t u s H y p e r t e n s i o n ( s y s t e m i c ) D i a b e t e s M e l l i t u s Assess/intervention Patient Screened For Future Fall Risk Assess/intervention Patient Screened For Future Fall Risk Assess/intervention Patient Screened For Future Fall Risk Assess/intervention Patient Screened For Future Fall Risk Assess/intervention Patient Screened For Future Fall Risk Assess/intervention Patient Screened For Future Fall Risk Assess/intervention Patient Screened For Future Fall Risk Assess/intervention Patient Screened For Future Fall Risk Assess/intervention Patient Screened For Future Fall Risk Assess/intervention Patient Screened For Future Fall Risk Assess/intervention Patient Screened For Future Fall Risk Assess/intervention Patient Screened For Future Fall Risk Assess/intervention Patient Screened For Future Fall Risk Assess/intervention Patient Screened For Future Fall Risk Assess/intervention Patient Screened For Future Fall Risk Assess/intervention Patient Screened For Future Fall Risk Assess/intervention Patient Screened For Future Fall Risk Assess/intervention Patient Screened For Future Fall Risk Assess/intervention Patient Screened For Future Fall Risk Assess/intervention Patient Screened For Future Fall Risk Assess/intervention Patient Screened For Future Fall Risk Assess/intervention Patient Screened For Future Fall Risk Assess/intervention Patient Screened For Future Fall Risk Assess/intervention Patient Screened For Future Fall Risk Obesity Obesity Obesity Obesity Obesity Obesity Obesity Obesity Obesity Obesity Obesity Obesity Obesity Obesity Obesity Obesity Obesity Obesity Obesity Obesity Obesity Obesity Obesity Obesity Assess/intervention Patient Screened For Future Fall Risk Obesity Assess/intervention Patient Screened For Future Fall Risk Obesity Assess/intervention Patient Screened For Future Fall Risk Obesity Assess/intervention Patient Screened For Future Fall Risk Obesity Assess/intervention Patient Screened For Future Fall Risk Obesity Assess/intervention Patient Screened For Future Fall Risk Obesity Assess/intervention Patient Screened For Future Fall Risk Obesity Assess/intervention Patient Screened For Future Fall Risk Obesity Assess/intervention Patient Screened For Future Fall Risk Obesity Assess/intervention Patient Screened For Future Fall Risk Obesity Assess/intervention Patient Screened For Future Fall Risk Obesity Assess/intervention Patient Screened For Future Fall Risk Obesity Assess/intervention Patient Screened For Future Fall Risk Obesity Assess/intervention Patient Screened For Future Fall Risk Obesity Assess/intervention Patient Screened For Future Fall Risk Obesity Assess/intervention Patient Screened For Future Fall Risk Obesity Assess/intervention Patient Screened For Future Fall Risk Obesity Assess/intervention Patient Screened For Future Fall Risk Obesity Assess/intervention Patient Screened For Future Fall Risk Obesity Assess/intervention Patient Screened For Future Fall Risk Obesity Assess/intervention Patient Screened For Future Fall Risk Obesity Assess/intervention Patient Screened For Future Fall Risk Obesity Assess/intervention Patient Screened For Future Fall Risk Obesity Assess/intervention Patient Screened For Future Fall Risk Obesity Assess/intervention Patient Screened For Future Fall Risk Obesity Assess/intervention Patient Screened For Future Fall Risk Obesity Assess/intervention Patient Screened For Future Fall Risk Obesity Assess/intervention Patient Screened For Future Fall Risk Obesity Assess/intervention Patient Screened For Future Fall Risk Obesity Assess/intervention Patient Screened For Future Fall Risk Obesity Assess/intervention Patient Screened For Future Fall Risk Obesity Assess/intervention Patient Screened For Future Fall Risk Obesity Hypertension (systemic) Diabetes Mellitus Hypertension (systemic) Diabetes Mellitus Hypertension (systemic) Diabetes Mellitus Hypertension (systemic) Diabetes Mellitus Hypertension (systemic) Diabetes Mellitus Hypertension (systemic) Diabetes Mellitus Hypertension (systemic) Diabetes Mellitus Hypertension (systemic) Diabetes Mellitus Hypertension (systemic) Diabetes Mellitus Hypertension (systemic) Diabetes Mellitus Hypertension (systemic) Diabetes Mellitus Hypertension (systemic) Diabetes Mellitus Hypertension (systemic) Diabetes Mellitus Hypertension (systemic) Diabetes Mellitus Hypertension (systemic) Diabetes Mellitus Hypertension (systemic) Diabetes Mellitus Hypertension (systemic) Diabetes Mellitus Hypertension (systemic) Diabetes Mellitus Hypertension (systemic) Diabetes Mellitus Hypertension (systemic) Diabetes Mellitus Hypertension (systemic) Diabetes Mellitus Hypertension (systemic) Diabetes Mellitus Hypertension (systemic) Diabetes Mellitus Hypertension (systemic) Diabetes Mellitus Hypertension (systemic) Diabetes Mellitus Hypertension (systemic) Diabetes Mellitus Hypertension (systemic) Diabetes Mellitus Hypertension (systemic) Diabetes Mellitus Hypertension (systemic) Diabetes Mellitus Hypertension (systemic) Diabetes Mellitus Hypertension (systemic) Diabetes Mellitus Hypertension (systemic) Diabetes Mellitus Hypertension (systemic) Diabetes Mellitus Hypertension (systemic) Diabetes Mellitus Hypertension (systemic) Diabetes Mellitus Hypertension (systemic) Diabetes Mellitus Hypertension (systemic) Diabetes Mellitus Hypertension (systemic) Diabetes Mellitus Hypertension (systemic) Diabetes Mellitus Hypertension (systemic) Diabetes Mellitus Hypertension (systemic) Diabetes Mellitus Hypertension (systemic) Diabetes Mellitus Hypertension (systemic) Diabetes Mellitus Hypertension (systemic) Diabetes Mellitus Hypertension (systemic) Diabetes Mellitus Hypertension (systemic) Diabetes Mellitus Hypertension (systemic) Diabetes Mellitus Hypertension (systemic) Diabetes Mellitus Hypertension (systemic) Diabetes Mellitus Hypertension (systemic) Diabetes Mellitus Hypertension (systemic) Diabetes Mellitus Hypertension (systemic) Diabetes Mellitus Hypertension (systemic) Diabetes Mellitus Hypertension (systemic) Diabetes Mellitus Hypertension (systemic) Diabetes Mellitus Hypertension (systemic) Diabetes Mellitus Outpatient<td Attender: Wu 07/18/2018 RADHA ID="[id number]">[facility]IENT [facility] 10:[facility]00 AM (Annia King [facility]</td><td>[facility] EDT - [facility]</td><td>[facility] 2018 [facility] Center</td><td>07/18/2018</td><td></td> 11:59:0 0 PM Center) EDT Attender: Mental 07/06/2018 [facility] 02:09:00 PM ([facility] 07/06/2018 Medical 02:09:00 PM Center) EDT OutpatientOFFICE/OUTPATIENT VISIT, EST Attender: Mental 07/07/[address] [facility] 11:55:00 AM ([facility] nder: 07/06/2018 Medical Isaiah 11:55:00 AM Center) [place] EDT Outpatient 07/01/2018 [facility] 08:11:00 AM ([facility]) Individual Psychotherapy (30 Min) Attender: Mental 06/08/2018 [facility] 05:46:00 PM ([facility] 06/08/2018 Medical 05:46:00 PM Center) EST Attender: 04/13/2018 [facility] 01:22:00 PM ([facility] 04/13/2018 Medical 01:22:00 PM Center) EST OutpatientOFFICE/OUTPATIENT VISIT, EST Attender: Podiatry 02/17/20 18 [facility] 12:41:00 PM ([facility] 02/16/2018 Medical 12:41:00 PM Center) EST Outpatient<td Attender: Wu 02/16/2018 [facility] ID="[id number]">PATIENT [facility] 12:13 :00 PM (Annia King [facility]</td><td>[facility] EST - [facility]</td><td>[facility] 2017 [facility] Center</td><td>02/16/2018</td><td></td> 11:59:0 0 PM Center) EST Outpatient<td Attender: Wu 02/16/2018 Cole RADHA ID="[id number]">OFFICE [facility] 09:00: 00 AM s (Annia King VISIT</td><td>[facility] Health EST - s [facility] DP</td><td>[facility] 02/16/2018 e Health Center</td><td>02/16/2018</td><td><content 10:0 4:56 AM s Center) ID="[id number]">Assessment EST s [use For S.o.a.p. Note Free m Text]</content></td> e n t [ u s e F o r S . o . a . p . N o t e F r e e T e x t ] A s s e s s m e n t [ u s e F o r S . o . a . p . N o t e F r e e T e x t ] A s s e s s m e n t [ u s e F o r S . o . a . p . N o t e F r e e T e x t ] A s s e s s m e n t [ u s e F o r S . o . a . p . N o t e F r e e T e x t ] A s s e s s m e n t [ u s e F o r S . o . a . p . N o t e F r e e T e x t ] A s s e s s m e n t [ u s e F o r S . o . a . p . N o t e F r e e T e x t ] A s s e s s m e n t [ u s e F o r S . o . a . p . N o t e F r e e T e x t ] A s s e s s m e n t [ u s e F o r S . o . a . p . N o t e F r e e T e x t ] A s s e s s m e n t [ u s e F o r S . o . a . p . N o t e F r e e T e x t ] A s s e s s m e n t [ u s e F o r S . o . a . p . N o t e F r e e T e x t ] A s s e s s m e n t [ u s e F o r S . o . a . p . N o t e F r e e T e x t ] A s s e s s m e n t [ u s e F o r S . o . a . p . N o t e F r e e T e x t ] A s s e s s m e n t [ u s e F o r S . o . a . p . N o t e F r e e T e x t ] A s s e s s m e n t [ u s e F o r S . o . a . p . N o t e F r e e T e x t ] A s s e s s m e n t [ u s e F o r S . o . a . p . N o t e F r e e T e x t ] A s s e s s m e n t [ u s e F o r S . o . a . p . N o t e F r e e T e x t ] A s s e s s m e n t [ u s e F o r S . o . a . p . N o t e F r e e T e x t ] A s s e s s m e n t [ u s e F o r S . o . a . p . N o t e F r e e T e x t ] A s s e s s m e n t [ u s e F o r S . o . a . p . N o t e F r e e T e x t ] A s s e s s m e n t [ u s e F o r S . o . a . p . N o t e F r e e T e x t ] A s s e s s m e n t [ u s e F o r S . o . a . p . N o t e F r e e T e x t ] A s s e s s m e n t [ u s e F o r S . o . a . p . N o t e F r e e T e x t ] A s s e s s m e n t [ u s e F o r S . o . a . p . N o t e F r e e T e x t ] A s s e s s m e n t [ u s e F o r S . o . a . p . N o t e F r e e T e x t ] A s s e s s m e n t [ u s e F o r S . o . a . p . N o t e F r e e T e x t ] A s s e s s m e n t [ u s e F o r S . o . a . p . N o t e F r e e T e x t ] A s s e s s m e n t [ u s e F o r S . o . a . p . N o t e F r e e T e x t ] A s s e s s m e n t [ u s e F o r S . o . a . p . N o t e F r e e T e x t ] A s s e s s m e n t [ u s e F o r S . o . a . p . N o t e F r e e T e x t ] A s s e s s m e n t [ u s e F o r S . o . a . p . N o t e F r e e T e x t ] A s s e s s m e n t [ u s e F o r S . o . a . p . N o t e F r e e T e x t ] A s s e s s m e n t [ u s e F o r S . o . a . p . N o t e F r e e T e x t ] A s s e s s m e n t [ u s e F o r S . o . a . p . N o t e F r e e T e x t ] A s s e s s m e n t [ u s e F o r S . o . a . p . N o t e F r e e T e x t ] A s s e s s m e n t [ u s e F o r S . o . a . p . N o t e F r e e T e x t ] A s s e s s m e n t [ u s e F o r S . o . a . p . N o t e F r e e T e x t ] A s s e s s m e n t [ u s e F o r S . o . a . p . N o t e F r e e T e x t ] A s s e s s m e n t [ u s e F o r S . o . a . p . N o t e F r e e T e x t ] A s s e s s m e n t [ u s e F o r S . o . a . p . N o t e F r e e T e x t ] A s s e s s m e n t [ u s e F o r S . o . a . p . N o t e F r e e T e x t ] A s s e s s m e n t [ u s e F o r S . o . a . p . N o t e F r e e T e x t ] A s s e s s m e n t [ u s e F o r S . o . a . p . N o t e F r e e T e x t ] A s s e s s m e n t [ u s e F o r S . o . a . p . N o t e F r e e T e x t ] A s s e s s m e n t [ u s e F o r S . o . a . p . N o t e F r e e T e x t ] A s s e s s m e n t [ u s e F o r S . o . a . p . N o t e F r e e T e x t ] A s s e s s m e n t [ u s e F o r S . o . a . p . N o t e F r e e T e x t ] A s s e s s m e n t [ u s e F o r S . o . a . p . N o t e F r e e T e x t ] A s s e s s m e n t [ u s e F o r S . o . a . p . N o t e F r e e T e x t ] A s s e s s m e n t [ u s e F o r S . o . a . p . N o t e F r e e T e x t ] A s s e s s m e n t [ u s e F o r S . o . a . p . N o t e F r e e T e x t ] A s s e s s m e n t [ u s e F o r S . o . a . p . N o t e F r e e T e x t ] A s s e s s m e n t [ u s e F o r S . o . a . p . N o t e F r e e T e x t ] A s s e s s m e n t [ u s e F o r S . o . a . p . N o t e F r e e T e x t ] A s s e s s m e n t [ u s e F o r S . o . a . p . N o t e F r e e T e x t ] A s s e s s m e n t [ u s e F o r S . o . a . p . N o t e F r e e T e x t ] A s s e s s m e n t [ u s e F o r S . o . a . p . N o t e F r e e T e x t ] Assessment [use For S.o.a.p. Note Free T ext] Assessment [use For S.o.a.p. Note Free T ext] Assessment [use For S.o.a.p. Note Free T ext] Assessment [use For S.o.a.p. Note Free T ext] Assessment [use For S.o.a.p. Note Free T ext] Assessment [use For S.o.a.p. Note Free T ext] Assessment [use For S.o.a.p. Note Free T ext] Assessment [use For S.o.a.p. Note Free T ext] Assessment [use For S.o.a.p. Note Free T ext] Assessment [use For S.o.a.p. Note Free T ext] Assessment [use For S.o.a.p. Note Free T ext] Assessment [use For S.o.a.p. Note Free T ext] Assessment [use For S.o.a.p. Note Free T ext] Assessment [use For S.o.a.p. Note Free T ext] Assessment [use For S.o.a.p. Note Free T ext] Assessment [use For S.o.a.p. Note Free T ext] Assessment [use For S.o.a.p. Note Free T ext] Assessment [use For S.o.a.p. Note Free T ext] Assessment [use For S.o.a.p. Note Free T ext] Assessment [use For S.o.a.p. Note Free T ext] Assessment [use For S.o.a.p. Note Free T ext] Assessment [use For S.o.a.p. Note Free T ext] Assessment [use For S.o.a.p. Note Free T ext] Assessment [use For S.o.a.p. Note Free T ext] Assessment [use For S.o.a.p. Note Free T ext] Assessment [use For S.o.a.p. Note Free T ext] Assessment [use For S.o.a.p. Note Free T ext] Assessment [use For S.o.a.p. Note Free T ext] Assessment [use For S.o.a.p. Note Free T ext] Assessment [use For S.o.a.p. Note Free T ext] Assessment [use For S.o.a.p. Note Free T ext] Assessment [use For S.o.a.p. Note Free T ext] Assessment [use For S.o.a.p. Note Free T ext] Assessment [use For S.o.a.p. Note Free T ext] Assessment [use For S.o.a.p. Note Free T ext] Assessment [use For S.o.a.p. Note Free T ext] Assessment [use For S.o.a.p. Note Free T ext] Assessment [use For S.o.a.p. Note Free T ext] Assessment [use For S.o.a.p. Note Free T ext] Assessment [use For S.o.a.p. Note Free T ext] Assessment [use For S.o.a.p. Note Free T ext] Assessment [use For S.o.a.p. Note Free T ext] Assessment [use For S.o.a.p. Note Free T ext] Assessment [use For S.o.a.p. Note Free T ext] Assessment [use For S.o.a.p. Note Free T ext] Assessment [use For S.o.a.p. Note Free T ext] Assessment [use For S.o.a.p. Note Free T ext] Assessment [use For S.o.a.p. Note Free T ext] Assessment [use For S.o.a.p. Note Free T ext] Assessment [use For S.o.a.p. Note Free T ext] Assessment [use For S.o.a.p. Note Free T ext] Assessment [use For S.o.a.p. Note Free T ext] Assessment [use For S.o.a.p. Note Free T ext] Assessment [use For S.o.a.p. Note Free T ext] Assessment [use For S.o.a.p. Note Free T ext] Assessment [use For S.o.a.p. Note Free T ext] [facility]: [facility] Isaiah Portillo 08:03:00 AM ([facility] 04/14/2017 Medical 08:03:00 AM Center) EST Outpatient< Attender: Wu 12/08/2016 [facility] 05:06:00 PM ([facility] nichole ID="ramana BAIRES [facility] EDT [facility] 12/08/2016 Health [id number]" 11:59:00 PM Center) >*Chart EDT Update*</td ><td>ADELA PASCAL MD</td><td> [facility]</td> <td> 017</td><td ></td> Outpatient< Attender: Tabernash 12/02/2016 [facility] 02:54:00 PM (Annia King ID="ramana Mcgill [facility] EDT [facility] 12/02/2016 Health [id number]" 11:59:00 PM Center) >PATIENT EDT ADVOCACY</t d><td>Melissa Mcgill</td ><td>[facility] s [facility] Center</td> <td> 017</td><td ></td> Outpatient< Attender: Wu 11/27/2016 ArthralgiaSleep Disorder [facility]HA td [facility]ILL[facility] 03:30:00 PM InsomniaSinus ([place] ID="[facility] EDT - BradycardiaArthralgiaSle ep Neighborhood erTypeDescr [facility] Center 11/27/2016 Disorder InsomniaSinus H ealth [id number]" 04:30:13 PM BradycardiaArthralgiaSl [facility] Center) >WALKINS</t EDT Disorder InsomniaSinus d><td>BILLIE BradycardiaArthralgiaSle ep [facility] Disorder InsomniaSinus [facility]</td><td BradycardiaArthralgiaSle ep >Tabernash Disorder InsomniaSinus [facility] BradycardiaArthralgiaSlee p Health Disorder InsomniaSinus [place]</td> BradycardiaArthralgiaSle ep <td> Disorder Insomnia[facility]inus 017</td><td BradycardiaArthralgiaSle ep ><content Disorder InsomniaSinus ID="encount BradycardiaArthralgiaSle ep erDiagnosis Disorder InsomniaSinus [id number]">Sin BradycardiaArthralgiaSle ep us Disorder InsomniaSinus Bradycardia BradycardiaArthralgiaSle ep </content>, Disorder InsomniaSinus <content BradycardiaArthralgiaSlee p ID="encount Disorder InsomniaSinus erDiagnosis BradycardiaArthralgiaSle ep [id number]">Sle Disorder InsomniaSinus ep Disorder BradycardiaArthralgiaSle ep Insomnia</c Disorder InsomniaSinus ontent>, BradycardiaArthralgiaSlee p <content Disorder InsomniaSinus ID="encount BradycardiaArthralgiaSle ep erDiagnosis Disorder InsomniaSinus [id number]">Art BradycardiaArthralgiaSle ep hralgia</co Disorder InsomniaSinus ntent></td> BradycardiaArthralgiaSle ep Disorder InsomniaSinus BradycardiaArthralgiaSlee p Disorder InsomniaSinus BradycardiaArthralgiaSlee p Disorder InsomniaSinus BradycardiaArthralgiaSlee p Disorder InsomniaSinus BradycardiaArthralgiaSlee p Disorder InsomniaSinus BradycardiaArthralgiaSlee p Disorder InsomniaSinus BradycardiaArthralgiaSlee p Disorder InsomniaSinus BradycardiaArthralgiaSlee p Disorder InsomniaSinus BradycardiaArthralgiaSlee p Disorder InsomniaSinus BradycardiaArthralgiaSlee p Disorder InsomniaSinus BradycardiaArthralgiaSlee p Disorder InsomniaSinus BradycardiaArthralgiaSlee p Disorder InsomniaSinus BradycardiaArthralgiaSlee p Disorder InsomniaSinus BradycardiaArthralgiaSlee p Disorder InsomniaSinus BradycardiaArthralgiaSlee p Disorder InsomniaSinus BradycardiaArthralgiaSlee p Disorder InsomniaSinus BradycardiaArthralgiaSlee p Disorder InsomniaSinus BradycardiaArthralgiaSlee p Disorder InsomniaSinus BradycardiaArthralgiaSlee p Disorder InsomniaSinus BradycardiaArthralgiaSlee p Disorder InsomniaSinus BradycardiaArthralgiaSlee p Disorder InsomniaSinus BradycardiaArthralgiaSlee p Disorder InsomniaSinus BradycardiaArthralgiaSlee p Disorder InsomniaSinus BradycardiaArthralgiaSlee p Disorder InsomniaSinus BradycardiaArthralgiaSlee p Disorder InsomniaSinus BradycardiaArthralgiaSlee p Disorder InsomniaSinus BradycardiaArthralgiaSlee p Disorder InsomniaSinus BradycardiaArthralgiaSlee p Disorder InsomniaSinus BradycardiaArthralgiaSlee p Disorder InsomniaSinus BradycardiaArthralgiaSlee p Disorder InsomniaSinus BradycardiaArthralgiaSlee p Disorder InsomniaSinus BradycardiaArthralgiaSlee p Disorder InsomniaSinus BradycardiaArthralgiaSlee p Disorder InsomniaSinus BradycardiaArthralgiaSlee p Disorder InsomniaSinus BradycardiaArthralgiaSlee p Disorder InsomniaSinus BradycardiaArthralgiaSlee p Disorder InsomniaSinus BradycardiaArthralgiaSlee p Disorder InsomniaSinus BradycardiaArthralgiaSlee p Disorder InsomniaSinus BradycardiaArthralgiaSlee p Disorder InsomniaSinus Bradycardia Arthralgia Sleep Disorder Insomnia Sinus Bradycardia Arthralgia Sleep Disorder Insomnia Sinus Bradycardia Arthralgia Sleep Disorder Insomnia Sinus Bradycardia Arthralgia Sleep Disorder Insomnia Sinus Bradycardia Arthralgia Sleep Disorder Insomnia Sinus Bradycardia Arthralgia Sleep Disorder Insomnia Sinus Bradycardia Arthralgia Sleep Disorder Insomnia Sinus Bradycardia Arthralgia Sleep Disorder Insomnia Sinus Bradycardia Arthralgia Sleep Disorder Insomnia Sinus Bradycardia Arthralgia Sleep Disorder Insomnia Sinus Bradycardia Arthralgia Sleep Disorder Insomnia Sinus Bradycardia Arthralgia Sleep Disorder Insomnia Sinus Bradycardia Arthralgia Sleep Disorder Insomnia Sinus Bradycardia Arthralgia Sleep Disorder Insomnia Sinus Bradycardia Arthralgia Sleep Disorder Insomnia Sinus Bradycardia Arthralgia Sleep Disorder Insomnia Sinus Bradycardia Arthralgia Sleep Disorder Insomnia Sinus Bradycardia Arthralgia Sleep Disorder Insomnia Sinus Bradycardia Arthralgia Sleep Disorder Insomnia Sinus Bradycardia Arthralgia Sleep Disorder Insomnia Sinus Bradycardia Arthralgia Sleep Disorder Insomnia Sinus Bradycardia Arthralgia Sleep Disorder Insomnia Sinus Bradycardia Arthralgia Sleep Disorder Insomnia Sinus Bradycardia Arthralgia Sleep Disorder Insomnia Sinus Bradycardia Arthralgia Sleep Disorder Insomnia Sinus Bradycardia Arthralgia Sleep Disorder Insomnia Sinus Bradycardia Arthralgia Sleep Disorder Insomnia Sinus Bradycardia Arthralgia Sleep Disorder Insomnia Sinus Bradycardia Arthralgia Sleep Disorder Insomnia Sinus Bradycardia Arthralgia Sleep Disorder Insomnia Sinus Bradycardia Arthralgia Sleep Disorder Insomnia Sinus Bradycardia Arthralgia Sleep Disorder Insomnia Sinus Bradycardia Arthralgia Sleep Disorder Insomnia Sinus Bradycardia Arthralgia Sleep Disorder Insomnia Sinus Bradycardia Arthralgia Sleep Disorder Insomnia Sinus Bradycardia Arthralgia Sleep Disorder Insomnia Sinus Bradycardia Arthralgia Sleep Disorder Insomnia Sinus Bradycardia Arthralgia Sleep Disorder Insomnia Sinus Bradycardia Arthralgia Sleep Disorder Insomnia Sinus Bradycardia Arthralgia Sleep Disorder Insomnia Sinus Bradycardia Arthralgia Sleep Disorder Insomnia Sinus Bradycardia Arthralgia Sleep Disorder Insomnia Sinus Bradycardia Arthralgia Sleep Disorder Insomnia Sinus Bradycardia Arthralgia Sleep Disorder Insomnia Sinus Bradycardia Arthralgia Sleep Disorder Insomnia Sinus Bradycardia Arthralgia Sleep Disorder Insomnia Sinus Bradycardia Arthralgia Sleep Disorder Insomnia Sinus Bradycardia Arthralgia Sleep Disorder Insomnia Sinus Bradycardia Arthralgia Sleep Disorder Insomnia Sinus Bradycardia Arthralgia Sleep Disorder Insomnia Sinus Bradycardia Arthralgia Sleep Disorder Insomnia Sinus Bradycardia Arthralgia Sleep Disorder Insomnia Sinus Bradycardia Arthralgia Sleep Disorder Insomnia Sinus Bradycardia Arthralgia Sleep Disorder Insomnia Sinus Bradycardia Arthralgia Sleep Disorder Insomnia Sinus Bradycardia Arthralgia Sleep Disorder Insomnia Sinus Bradycardia OutpatientOFFICE/OUTPATIENT Attender: [facility] Showcase [employer] 10:49:00 AM ([facility] 08/31/2013 Medical 10:49:00 AM Center) EDT Attender: [facility] 08/30/2013 [facility] 04:38:00 PM ([facility] 08/30/2013 Medical 04:38:00 PM Center) EDT [facility] 08/24/2013 [facility] Health 01:59:00 PM ([facility] 08/24/2013 Medical 01:59:00 PM [facility] EDT Outpatient<td Attender: Wu 08/23/2013 Assessment CHAMBERINO ID="encounterTypeDescriptionI [facility] 02:47[facility]00 PM [use For (Annia King D71">Follow Up</td><td>[facility] EDT - S.o.a.p . [facility]</td><td>[facility] 08/23/2013 Note Free [facility] 03:33:06 PM Text]Assess [facility]</td><td>08/23/2013</td EDT ment [ use ><td><content For ID="[id number]" S.o.a. p. >Assessment [use For S.o.a.p. Note F ree Note Free Text]Assess Text]</content></td> ment [use For S.o.a.p. Note Free Text]Assess ment [use For S.o.a.p. Note Free Text]Assess ment [use For S.o.a.p. Note Free Text]Assess ment [use For S.o.a.p. Note Free Text]Assess ment [use For S.o.a.p. Note Free Text]Assess ment [use For S.o.a.p. Note Free Text]Assess ment [use For S.o.a.p. Note Free Text]Assess ment [use For S.o.a.p. Note Free Text]Assess ment [use For S.o.a.p. Note Free Text]Assess ment [use For S.o.a.p. Note Free Text]Assess ment [use For S.o.a.p. Note Free Text]Assess ment [use For S.o.a.p. Note Free Text]Assess ment [use For S.o.a.p. Note Free Text]Assess ment [use For S.o.a.p. Note Free Text]Assess ment [use For S.o.a.p. Note Free Text]Assess ment [use For S.o.a.p. Note Free Text]Assess ment [use For S.o.a.p. Note Free Text]Assess ment [use For S.o.a.p. Note Free Text]Assess ment [use For S.o.a.p. Note Free Text]Assess ment [use For S.o.a.p. Note Free Text]Assess ment [use For S.o.a.p. Note Free Text]Assess ment [use For S.o.a.p. Note Free Text]Assess ment [use For S.o.a.p. Note Free Text]Assess ment [use For S.o.a.p. Note Free Text]Assess ment [use For S.o.a.p. Note Free Text]Assess ment [use For S.o.a.p. Note Free Text]Assess ment [use For S.o.a.p. Note Free Text]Assess ment [use For S.o.a.p. Note Free Text]Assess ment [use For S.o.a.p. Note Free Text]Assess ment [use For S.o.a.p. Note Free Text]Assess ment [use For S.o.a.p. Note Free Text]Assess ment [use For S.o.a.p. Note Free Text]Assess ment [use For S.o.a.p. Note Free Text]Assess ment [use For S.o.a.p. Note Free Text]Assess ment [use For S.o.a.p. Note Free Text]Assess ment [use For S.o.a.p. Note Free Text]Assess ment [use For S.o.a.p. Note Free Text]Assess ment [use For S.o.a.p. Note Free Text]Assess ment [use For S.o.a.p. Note Free Text]Assess ment [use For S.o.a.p. Note Free Text]Assess ment [use For S.o.a.p. Note Free Text]Assess ment [use For S.o.a.p. Note Free Text]Assess ment [use For S.o.a.p. Note Free Text]Assess ment [use For S.o.a.p. Note Free Text]Assess ment [use For S.o.a.p. Note Free Text]Assess ment [use For S.o.a.p. Note Free Text]Assess ment [use For S.o.a.p. Note Free Text]Assess ment [use For S.o.a.p. Note Free Text]Assess ment [use For S.o.a.p. Note Free Text]Assess ment [use For S.o.a.p. Note Free Text]Assess ment [use For S.o.a.p. Note Free Text]Assess ment [use For S.o.a.p. Note Free Text]Assess ment [use For S.o.a.p. Note Free Text]Assess ment [use For S.o.a.p. Note Free Text] Assessment [use For S.o.a.p. Note Free T ext] Assessment [use For S.o.a.p. Note Free T ext] Assessment [use For S.o.a.p. Note Free T ext] Assessment [use For S.o.a.p. Note Free T ext] Assessment [use For S.o.a.p. Note Free T ext] Assessment [use For S.o.a.p. Note Free T ext] Assessment [use For S.o.a.p. Note Free T ext] Assessment [use For S.o.a.p. Note Free T ext] Assessment [use For S.o.a.p. Note Free T ext] Assessment [use For S.o.a.p. Note Free T ext] Assessment [use For S.o.a.p. Note Free T ext] Assessment [use For S.o.a.p. Note Free T ext] Assessment [use For S.o.a.p. Note Free T ext] Assessment [use For S.o.a.p. Note Free T ext] Assessment [use For S.o.a.p. Note Free T ext] Assessment [use For S.o.a.p. Note Free T ext] Assessment [use For S.o.a.p. Note Free T ext] Assessment [use For S.o.a.p. Note Free T ext] Assessment [use For S.o.a.p. Note Free T ext] Assessment [use For S.o.a.p. Note Free T ext] Assessment [use For S.o.a.p. Note Free T ext] Assessment [use For S.o.a.p. Note Free T ext] Assessment [use For S.o.a.p. Note Free T ext] Assessment [use For S.o.a.p. Note Free T ext] Assessment [use For S.o.a.p. Note Free T ext] Assessment [use For S.o.a.p. Note Free T ext] Assessment [use For S.o.a.p. Note Free T ext] Assessment [use For S.o.a.p. Note Free T ext] Assessment [use For S.o.a.p. Note Free T ext] Assessment [use For S.o.a.p. Note Free T ext] Assessment [use For S.o.a.p. Note Free T ext] Assessment [use For S.o.a.p. Note Free T ext] Assessment [use For S.o.a.p. Note Free T ext] Assessment [use For S.o.a.p. Note Free T ext] Assessment [use For S.o.a.p. Note Free T ext] Assessment [use For S.o.a.p. Note Free T ext] Assessment [use For S.o.a.p. Note Free T ext] Assessment [use For S.o.a.p. Note Free T ext] Assessment [use For S.o.a.p. Note Free T ext] Assessment [use For S.o.a.p. Note Free T ext] Assessment [use For S.o.a.p. Note Free T ext] Assessment [use For S.o.a.p. Note Free T ext] Assessment [use For S.o.a.p. Note Free T ext] Assessment [use For S.o.a.p. Note Free T ext] Assessment [use For S.o.a.p. Note Free T ext] Assessment [use For S.o.a.p. Note Free T ext] Assessment [use For S.o.a.p. Note Free T ext] Assessment [use For S.o.a.p. Note Free T ext] Assessment [use For S.o.a.p. Note Free T ext] Assessment [use For S.o.a.p. Note Free T ext] Assessment [use For S.o.a.p. Note Free T ext] Assessment [use For S.o.a.p. Note Free T ext] Assessment [use For S.o.a.p. Note Free T ext] Assessment [use For S.o.a.p. Note Free T ext] Assessment [use For S.o.a.p. Note Free T ext] Assessment [use For S.o.a.p. Note Free T ext] OutpatientOFFICE/OUTPATIENT Attender: Family 08/23/2013 [facility] VISIT, [facility]45:00 [facility]2013 Medical 08:45:00 AM Center) EDT Outpatient<td Attender: Wu 08/15/2013 RADHA ID="encounterTypeDescription [facility] 04:01:00 PM (Annia King [id number]">OFFICE CLARENCE BAIRES [facility] EDT [facility] VISIT</td><td>[facility] 08/15/2013 H ish LIMA MD</td><td>Wu 06:17:30 PM [facility] EDT Center</td><td>08/15/2013</t d><td></td> Outpatient<td Attender: 08/07/2013 RADHA ID="encounterTypeDescription ADELA PASCAL 05:05:00 PM (Annia King [id number]">[facility]</td><td>ADELA 08/07/2013 H ish PASCAL MD</td><td> 11:59:00 PM Benjamin mix EDT </td><td>08/07/2013</td><td> </td> OutpatientOFFICE/OUTPATIENT Attender: Family 08/07/2013 NEXTGEN VISIT, [facility] 10:19:00 AM ([facility] 08/07/2013 Medical 10:19:00 AM [place]) EDT Outpatient<td Attender: Wu 08/02/2013 RADHA ID="encounterTypeDescription [facility] 09:57:00 AM (Annia King [id number]">THERAPY</td><td>KEON [facility] EDT [facility] 08/02/2013 [facility]</td><td>[place] 11:59:00 PM [facility] EDT Center</td><td>08/02/2013</t d><td></td> Outpatient<td Attender: Single 07/27/2013 RADHA ID="encounterTypeDescription KAYLYNN Homeless 08:45:00 AM (Annia King ID75">Follow ANTONIO BAIRES Accessment EDT - Neighborhood Up</td><td>[facility] Center 07/27/2013 Health ATNONIO BAIRES</td><td>Single 11:59:00 PM Center) Homeless Accessment EDT Center</td><td>07/27/2013</t d><td></td> Outpatient<td Attender: Single 07/25/2013 RADHA ID="encounterTypeDescription KAYLYNN Homeless 10:45:00 AM (Annia King ID76">INITIAL ANTONIO BAIRES Accessment EDT - [facility] d VISIT</td><td>[facility] Center 07/25/2013 Health IP ANTONIO BAIRES</td><td>Single 11:59:00 PM [place]) Homeless Accessment EDT Center</td><td>07/25/2013</t d><td></td> Attender: Family 07/24/2013 [facility] 02:01:00 PM ([facility] 07/24/2013 Medical 02:01:00 PM Center) EDT Outpatient<td Attender: Wu 07/24/2013 RADHA ID="encounterTypeDescription ADELA PASCAL [facility] 09:24:00 AM (Annia King [id number]">WALKINS</td><td>ADELA BAIRES Health EDT - [facility] NAIDA BAIRES</td><td>[facility] 07/24/2013 [facility] 10:22:41 AM Center) Center</td><td>07/24/2013</t EDT d><td></td> OutpatientOFFICE/OUTPATIENT Attender: Family 06/22/2013 [facility] 12:59:00 PM ([facility] 06/22/2013 Medical 12:59:00 PM [place]) EDT Outpatient<td Attender: Wu 06/21/2013 Assessmen RADHA ID="encounterTypeDescription [facility] 10:22:00 AM t [us e (Annia King [id number]">OFFICE DPM Health EDT - For Neighborhood VISIT</td><td>[facility] 06/21/2013 S.o.a.p. Health DP</td><td>Wu 11:01:46 AM Note Free Cent [facility] EDT Text][facility] Center</td><td>06/21/2013</t ssment d><td><content [use For ID="[id number] S.o.a.p . ">Assessment [use For Note Free S.o.a.p. Note Free Text]Asse Text]</content></td> ssment [use For S.o.a.p. Note Free Text]Asse ssment [use For S.o.a.p. Note Free Text]Asse ssment [use For S.o.a.p. Note Free Text]Asse ssment [use For S.o.a.p. Note Free Text]Asse ssment [use For S.o.a.p. Note Free Text]Asse ssment [use For S.o.a.p. Note Free Text]Asse ssment [use For S.o.a.p. Note Free Text]Asse ssment [use For S.o.a.p. Note Free Text]Asse ssment [use For S.o.a.p. Note Free Text]Asse ssment [use For S.o.a.p. Note Free Text]Asse ssment [use For S.o.a.p. Note Free Text]Asse ssment [use For S.o.a.p. Note Free Text]Asse ssment [use For S.o.a.p. Note Free Text]Asse ssment [use For S.o.a.p. Note Free Text]Asse ssment [use For S.o.a.p. Note Free Text]Asse ssment [use For S.o.a.p. Note Free Text]Asse ssment [use For S.o.a.p. Note Free Text]Asse ssment [use For S.o.a.p. Note Free Text]Asse ssment [use For S.o.a.p. Note Free Text]Asse ssment [use For S.o.a.p. Note Free Text]Asse ssment [use For S.o.a.p. Note Free Text]Asse ssment [use For S.o.a.p. Note Free Text]Asse ssment [use For S.o.a.p. Note Free Text]Asse ssment [use For S.o.a.p. Note Free Text]Asse ssment [use For S.o.a.p. Note Free Text]Asse ssment [use For S.o.a.p. Note Free Text]Asse ssment [use For S.o.a.p. Note Free Text]Asse ssment [use For S.o.a.p. Note Free Text]Asse ssment [use For S.o.a.p. Note Free Text]Asse ssment [use For S.o.a.p. Note Free Text]Asse ssment [use For S.o.a.p. Note Free Text]Asse ssment [use For S.o.a.p. Note Free Text]Asse ssment [use For S.o.a.p. Note Free Text]Asse ssment [use For S.o.a.p. Note Free Text]Asse ssment [use For S.o.a.p. Note Free Text]Asse ssment [use For S.o.a.p. Note Free Text]Asse ssment [use For S.o.a.p. Note Free Text]Asse ssment [use For S.o.a.p. Note Free Text]Asse ssment [use For S.o.a.p. Note Free Text]Asse ssment [use For S.o.a.p. Note Free Text]Asse ssment [use For S.o.a.p. Note Free Text]Asse ssment [use For S.o.a.p. Note Free Text]Asse ssment [use For S.o.a.p. Note Free Text]Asse ssment [use For S.o.a.p. Note Free Text]Asse ssment [use For S.o.a.p. Note Free Text]Asse ssment [use For S.o.a.p. Note Free Text]Asse ssment [use For S.o.a.p. Note Free Text]Asse ssment [use For S.o.a.p. Note Free Text]Asse ssment [use For S.o.a.p. Note Free Text]Asse ssment [use For S.o.a.p. Note Free Text]Asse ssment [use For S.o.a.p. Note Free Text]Asse ssment [use For S.o.a.p. Note Free Text]Asse ssment [use For S.o.a.p. Note Free Text]Asse ssment [use For S.o.a.p. Note Free Text] Assessment [use For S.o.a.p. Note Free T ext] Assessment [use For S.o.a.p. Note Free T ext] Assessment [use For S.o.a.p. Note Free T ext] Assessment [use For S.o.a.p. Note Free T ext] Assessment [use For S.o.a.p. Note Free T ext] Assessment [use For S.o.a.p. Note Free T ext] Assessment [use For S.o.a.p. Note Free T ext] Assessment [use For S.o.a.p. Note Free T ext] Assessment [use For S.o.a.p. Note Free T ext] Assessment [use For S.o.a.p. Note Free T ext] Assessment [use For S.o.a.p. Note Free T ext] Assessment [use For S.o.a.p. Note Free T ext] Assessment [use For S.o.a.p. Note Free T ext] Assessment [use For S.o.a.p. Note Free T ext] Assessment [use For S.o.a.p. Note Free T ext] Assessment [use For S.o.a.p. Note Free T ext] Assessment [use For S.o.a.p. Note Free T ext] Assessment [use For S.o.a.p. Note Free T ext] Assessment [use For S.o.a.p. Note Free T ext] Assessment [use For S.o.a.p. Note Free T ext] Assessment [use For S.o.a.p. Note Free T ext] Assessment [use For S.o.a.p. Note Free T ext] Assessment [use For S.o.a.p. Note Free T ext] Assessment [use For S.o.a.p. Note Free T ext] Assessment [use For S.o.a.p. Note Free T ext] Assessment [use For S.o.a.p. Note Free T ext] Assessment [use For S.o.a.p. Note Free T ext] Assessment [use For S.o.a.p. Note Free T ext] Assessment [use For S.o.a.p. Note Free T ext] Assessment [use For S.o.a.p. Note Free T ext] Assessment [use For S.o.a.p. Note Free T ext] Assessment [use For S.o.a.p. Note Free T ext] Assessment [use For S.o.a.p. Note Free T ext] Assessment [use For S.o.a.p. Note Free T ext] Assessment [use For S.o.a.p. Note Free T ext] Assessment [use For S.o.a.p. Note Free T ext] Assessment [use For S.o.a.p. Note Free T ext] Assessment [use For S.o.a.p. Note Free T ext] Assessment [use For S.o.a.p. Note Free T ext] Assessment [use For S.o.a.p. Note Free T ext] Assessment [use For S.o.a.p. Note Free T ext] Assessment [use For S.o.a.p. Note Free T ext] Assessment [use For S.o.a.p. Note Free T ext] Assessment [use For S.o.a.p. Note Free T ext] Assessment [use For S.o.a.p. Note Free T ext] Assessment [use For S.o.a.p. Note Free T ext] Assessment [use For S.o.a.p. Note Free T ext] Assessment [use For S.o.a.p. Note Free T ext] Assessment [use For S.o.a.p. Note Free T ext] Assessment [use For S.o.a.p. Note Free T ext] Assessment [use For S.o.a.p. Note Free T ext] Assessment [use For S.o.a.p. Note Free T ext] Assessment [use For S.o.a.p. Note Free T ext] Assessment [use For S.o.a.p. Note Free T ext] Assessment [use For S.o.a.p. Note Free T ext] Assessment [use For S.o.a.p. Note Free T ext] Outpatient<td Attender: Wu 06/08/2013 CHAMBERINO ID="rj[id number]">WALKINS</td><td>[facility] 02:02:00 PM ([facility]</td><td>[facility] EST [facility]</td><td>06/08/2013</td><td></td> Center 014 Health 03:07:34 PM Center) EST Outpatient<td ID="pb[id number]">*No Attender: Wu 06/07/2013 CHAMBERINO Show*</td><td>ADRIANO LB [facility]</td><td>[facility] 11:51:00 AM ([facility]</td><td>06/07/2013</td><td></td> [facility] EST [facility] 06/07/2013 Health 11:59:00 PM Center) EST Outpatient<td Attender: Wu 06/05/2013 CHAMBERINO ID="[id number]">WALKINS</td><td>[facility] 09:19:00 AM ([facility]</td><td>[facility] EST - [facility]ighborhood [facility]</td><td>06/05/2013</td><td></td> Center 014 Health 12:11:25 PM Center) EST Outpatient<td Attender: ADELA Washburn 02/02/2013 GREENWA Y ID="[id number]">WALKINS</td><td>[facility] 09:46[facility] AM (Bruindarin PASCAL MD</td><td>[facility] EDT - [facility]</td><td>02/02/2013</td><td></td> Center 013 Health 11:47:53 AM Center) EDT Outpatient<td ID="vd[id number]">Follow Attender: Wu 02/01/2013 RADHA Up</td><td>[facility]</td><td>[facility] 11:25:00 AM ([facility]</td><td>02/01/2013</td><td></td> [facility] EDT - [facility] 02/01/2013 Health 11:59:00 PM Center) EDT Outpatient<td ID="xc[id number]">WILY cuadra 11/25/2012 RADHA EKG</td><td> </td><td>[facility] 12:22:00 PM ([facility]</td><td>11/25/2012</td><td></td> Health EDT - [facility]ighborhood [facility] 11/25/2012 Health 11:59:00 PM Center) EDT Outpatient<td ID="du[id number]">OFFICE Attender: Wu 11/25/2012 RADHA VISIT</td><td>[facility]</td><td>[facility] 11:30:00 AM ([facility]</td><td>11/25/2012</td><td></td> [facility] EDT - [facility]ighborhood [facility] 11/25/2012 Health 11:59:00 PM Center) EDT Outpatient<td ID="xi[id number]">OFFICE Attender: Wu 10/26/2012 RADHA VISIT</td><td>ADRIANO LB DPM</td><td>[facility] 10:50:00 AM ([facility]</td><td>10/26/2012</td><td></td> [facility] 10/26/2012 Health 11:59:00 PM Center) EDT Outpatient<td Attender: ADELA Washburn 09/01/2012 ASHLIWA Y ID="[id number]">WALKINS</td><td>ADELA PASCAL [facility] 09:45:00 AM (Bruindarin PASCAL MD</td><td>[facility] EDT - [facility]</td><td>09/01/2012</td><td></td> Center [facility] Health 11:55:36 AM Center) EDT Outpatient<td ID="[id number]">OFFICE Attender: Wu 08/03/2012 RADHA VISIT</td><td>ADRIANO LB DPM</td><td>[facility] 10:13:00 AM ([facility]</td><td>08/03/2012</td><td></td> [facility] 08/03/2012 Health 11:59:00 PM Center) EDT Outpatient<td ID="zx[id number]">OFFICE Attender: Wu 05/11/2012 RADHA VISIT</td><td>ADRIANO LB DPM</td><td>[facility] 10:05:00 AM ([facility]</td><td>05/11/2012</td><td></td> [facility] Health EST - [facility]ighborhood [facility] 05/11/2012 Health 11:59:00 PM Center) EST Outpatient<td ID="cm[id number]">Follow Attender: Wu 02/10/2012 RADHA Up</td><td>[facility]</td><td>[facility] 10:17:00 AM ([facility]</td><td>02/10/2012</td><td></td> [facility] EDT - Neighborhood [place] 02/10/2012 Health 11:59:00 PM Center) EDT Outpatient<td Attender: ADELA Washburn 12/22/2011 ASHLIDE Y ID="[id number]">WALKINS</td><td>ADELA PASCAL MD [facility] 09:57:00 AM (Annia PASCAL MD</td><td>[facility] EDT [facility]</td><td>12/22/2011</td><td></td> [place] [address] [place] [address] 12:26:40 PM Center) EDT Outpatient<td Attender: ADELA Washburn 11/25/2011 ASHLIDE Y ID="[id number]">WALKINS</td><td>ADELA PASCAL MD [facility] 09:31:00 AM (Annia PASCAL MD</td><td>[facility] EDT [facility]</td><td>11/25/2011</td><td></td> Center [address] [place] [address] 02:51:36 PM Center) EDT Outpatient<td ID="ty[id number]">*Chart Attender: 11/18/2011 RADHA Update*</td><td>KORY TOVAR MD</td><td> [facility] 09: 34:00 AM (Annia King </td><td>11/18/2011</td><td></td> GUY [facility]IRES EDT - Neighborhood 11/18/2011 Health 11:59:00 PM Center) EDT Outpatient<td Attender: Wu 11/09/2011 RADHA ID="ci[id number]">WALKINS</td><td>[facility] 04:06:00 PM o (Bruindarin TOVAR MD</td><td>[facility] GUY BAIRES Health E DT - w [facility]</td><td>11/09/2011</td><td><content Center 10/12 B Health ID="[id number]">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</content>, <content EDT c ID="[id number]">Benign Prostatic k Hypertrophy</content>, <content P ID="[id number]">Coronary Artery a Disease</content>, <content i ID="vyrllsfawIeolrviiuJJ99-7">Coronary Artery n Disease</content>, <content D ID="[id number]">Depression</content>, e <content ID="ntkftmavmHnzllwigqOI93-9">Diabetes p Mellitus</content>, <content r ID="wsvgnybtqGezhrabulIX86-8">Epilepsy</content>, <content e ID="[id number]">Essential s Hypertension</content>, <content s ID="[id number]">Low Back Pain</content></td> i o n L o w B a c k P a i n D e p r e s s i o n L o w B a c k P a i n D e p r e s s i o n L o w B a c k P a i n D e p r e s s i o n L o w B a c k P a i n D e p r e s s i o n L o w B a c k P a i n D e p r e s s i o n L o w B a c k P a i n D e p r e s s i o n L o w B a c k P a i n D e p r e s s i o n L o w B a c k P a i n D e p r e s s i o n L o w B a c k P a i n D e p r e s s i o n L o w B a c k P a i n D e p r e s s i o n L o w B a c k P a i n D e p r e s s i o n L o w B a c k P a i n D e p r e s s i o n L o w B a c k P a i n D e p r e s s i o n L o w B a c k P a i n D e p r e s s i o n L o w B a c k P a i n D e p r e s s i o n L o w B a c k P a i n D e p r e s s i o n L o w B a c k P a i n D e p r e s s i o n L o w B a c k P a i n D e p r e s s i o n L o w B a c k P a i n D e p r e s s i o n L o w B a c k P a i n D e p r e s s i o n L o w B a c k P a i n D e p r e s s i o n L o w B a c k P a i n D e p r e s s i o n L o w B a c k P a i n D e p r e s s i o n E s s e n t i a l H y p e r t e n s i o n E p i l e p s y D i a b e t e s M e l l i t u s C o r o n a r y A r t e r y D i s e a s e C o r o n a r y A r t e r y D i s e a s e B e n i g n P r o s t a t i c H y p e r t r o p h y B e n i g n P r o s t a t i c H y p e r t r o p h y E s s e n t i a l H y p e r t e n s i o n E p i l e p s y D i a b e t e s M e l l i t u s C o r o n a r y A r t e r y D i s e a s e C o r o n a r y A r t e r y D i s e a s e B e n i g n P r o s t a t i c H y p e r t r o p h y B e n i g n P r o s t a t i c H y p e r t r o p h y E s s e n t i a l H y p e r t e n s i o n E p i l e p s y D i a b e t e s M e l l i t u s C o r o n a r y A r t e r y D i s e a s e C o r o n a r y A r t e r y D i s e a s e B e n i g n P r o s t a t i c H y p e r t r o p h y B e n i g n P r o s t a t i c H y p e r t r o p h y E s s e n t i a l H y p e r t e n s i o n E p i l e p s y D i a b e t e s M e l l i t u s C o r o n a r y A r t e r y D i s e a s e C o r o n a r y A r t e r y D i s e a s e B e n i g n P r o s t a t i c H y p e r t r o p h y B e n i g n P r o s t a t i c H y p e r t r o p h y E s s e n t i a l H y p e r t e n s i o n E p i l e p s y D i a b e t e s M e l l i t u s C o r o n a r y A r t e r y D i s e a s e C o r o n a r y A r t e r y D i s e a s e B e n i g n P r o s t a t i c H y p e r t r o p h y B e n i g n P r o s t a t i c H y p e r t r o p h y E s s e n t i a l H y p e r t e n s i o n E p i l e p s y D i a b e t e s M e l l i t u s C o r o n a r y A r t e r y D i s e a s e C o r o n a r y A r t e r y D i s e a s e B e n i g n P r o s t a t i c H y p e r t r o p h y B e n i g n P r o s t a t i c H y p e r t r o p h y E s s e n t i a l H y p e r t e n s i o n E p i l e p s y D i a b e t e s M e l l i t u s C o r o n a r y A r t e r y D i s e a s e C o r o n a r y A r t e r y D i s e a s e B e n i g n P r o s t a t i c H y p e r t r o p h y B e n i g n P r o s t a t i c H y p e r t r o p h y E s s e n t i a l H y p e r t e n s i o n E p i l e p s y D i a b e t e s M e l l i t u s C o r o n a r y A r t e r y D i s e a s e C o r o n a r y A r t e r y D i s e a s e B e n i g n P r o s t a t i c H y p e r t r o p h y B e n i g n P r o s t a t i c H y p e r t r o p h y E s s e n t i a l H y p e r t e n s i o n E p i l e p s y D i a b e t e s M e l l i t u s C o r o n a r y A r t e r y D i s e a s e C o r o n a r y A r t e r y D i s e a s e B e n i g n P r o s t a t i c H y p e r t r o p h y B e n i g n P r o s t a t i c H y p e r t r o p h y E s s e n t i a l H y p e r t e n s i o n E p i l e p s y D i a b e t e s M e l l i t u s C o r o n a r y A r t e r y D i s e a s e C o r o n a r y A r t e r y D i s e a s e B e n i g n P r o s t a t i c H y p e r t r o p h y B e n i g n P r o s t a t i c H y p e r t r o p h y E s s e n t i a l H y p e r t e n s i o n E p i l e p s y D i a b e t e s M e l l i t u s C o r o n a r y A r t e r y D i s e a s e C o r o n a r y A r t e r y D i s e a s e B e n i g n P r o s t a t i c H y p e r t r o p h y B e n i g n P r o s t a t i c H y p e r t r o p h y C o r o n a r y A r t e r y D i s e a s e B e n i g n P r o s t a t i c H y p e r t r o p h y B e n i g n P r o s t a t i c H y p e r t r o p h y E s s e n t i a l H y p e r t e n s i o n E p i l e p s y D i a b e t e s M e l l i t u s C o r o n a r y A r t e r y D i s e a s e C o r o n a r y A r t e r y D i s e a s e B e n i g n P r o s t a t i c H y p e r t r o p h y B e n i g n P r o s t a t i c H y p e r t r o p h y E s s e n t i a l H y p e r t e n s i o n E p i l e p s y D i a b e t e s M e l l i t u s C o r o n a r y A r t e r y D i s e a s e C o r o n a r y A r t e r y D i s e a s e B e n i g n P r o s t a t i c H y p e r t r o p h y B e n i g n P r o s t a t i c H y p e r t r o p h y E s s e n t i a l H y p e r t e n s i o n E p i l e p s y D i a b e t e s M e l l i t u s C o r o n a r y A r t e r y D i s e a s e C o r o n a r y A r t e r y D i s e a s e B e n i g n P r o s t a t i c H y p e r t r o p h y B e n i g n P r o s t a t i c H y p e r t r o p h y E s s e n t i a l H y p e r t e n s i o n E p i l e p s y D i a b e t e s M e l l i t u s C o r o n a r y A r t e r y D i s e a s e C o r o n a r y A r t e r y D i s e a s e B e n i g n P r o s t a t i c H y p e r t r o p h y B e n i g n P r o s t a t i c H y p e r t r o p h y E s s e n t i a l H y p e r t e n s i o n E p i l e p s y D i a b e t e s M e l l i t u s C o r o n a r y A r t e r y D i s e a s e C o r o n a r y A r t e r y D i s e a s e B e n i g n P r o s t a t i c H y p e r t r o p h y B e n i g n P r o s t a t i c H y p e r t r o p h y E s s e n t i a l H y p e r t e n s i o n E p i l e p s y D i a b e t e s M e l l i t u s C o r o n a r y A r t e r y D i s e a s e C o r o n a r y A r t e r y D i s e a s e B e n i g n P r o s t a t i c H y p e r t r o p h y B e n i g n P r o s t a t i c H y p e r t r o p h y E s s e n t i a l H y p e r t e n s i o n E p i l e p s y D i a b e t e s M e l l i t u s C o r o n a r y A r t e r y D i s e a s e C o r o n a r y A r t e r y D i s e a s e B e n i g n P r o s t a t i c H y p e r t r o p h y B e n i g n P r o s t a t i c H y p e r t r o p h y E s s e n t i a l H y p e r t e n s i o n E p i l e p s y D i a b e t e s M e l l i t u s C o r o n a r y A r t e r y D i s e a s e C o r o n a r y A r t e r y D i s e a s e B e n i g n P r o s t a t i c H y p e r t r o p h y B e n i g n P r o s t a t i c H y p e r t r o p h y E s s e n t i a l H y p e r t e n s i o n E p i l e p s y D i a b e t e s M e l l i t u s C o r o n a r y A r t e r y D i s e a s e C o r o n a r y A r t e r y D i s e a s e B e n i g n P r o s t a t i c H y p e r t r o p h y B e n i g n P r o s t a t i c H y p e r t r o p h y E s s e n t i a l H y p e r t e n s i o n E p i l e p s y D i a b e t e s M e l l i t u s C o r o n a r y A r t e r y D i s e a s e C o r o n a r y A r t e r y D i s e a s e B e n i g n P r o s t a t i c H y p e r t r o p h y B e n i g n P r o s t a t i c H y p e r t r o p h y E s s e n t i a l H y p e r t e n s i o n E p i l e p s y D i a b e t e s M e l l i t u s C o r o n a r y A r t e r y D i s e a s e C o r o n a r y A r t e r y D i s e a s e B e n i g n P r o s t a t i c H y p e r t r o p h y B e n i g n P r o s t a t i c H y p e r t r o p h y E s s e n t i a l H y p e r t e n s i o n E p i l e p s y D i a b e t e s M e l l i t u s C o r o n a r y A r t e r y D i s e a s e C o r o n a r y A r t e r y D i s e a s e B e n i g n P r o s t a t i c H y p e r t r o p h y B e n i g n P r o s t a t i c H y p e r t r o p h y L o w B a c k P a i n E s s e n t i a l H y p e r t e n s i o n E p i l e p s y D i a b e t e s M e l l i t u s D e p r e s s i o n C o r o n a r y A r t e r y D i s e a s e C o r o n a r y A r t e r y D i s e a s e B e n i g n P r o s t a t i c H y p e r t r o p h y B e n i g n P r o s t a t i c H y p e r t r o p h y L o w B a c k P a i n E s s e n t i a l H y p e r t e n s i o n E p i l e p s y D i a b e t e s M e l l i t u s D e p r e s s i o n C o r o n a r y A r t e r y D i s e a s e C o r o n a r y A r t e r y D i s e a s e B e n i g n P r o s t a t i c H y p e r t r o p h y B e n i g n P r o s t a t i c H y p e r t r o p h y L o w B a c k P a i n E s s e n t i a l H y p e r t e n s i o n E p i l e p s y D i a b e t e s M e l l i t u s D e p r e s s i o n C o r o n a r y A r t e r y D i s e a s e C o r o n a r y A r t e r y D i s e a s e B e n i g n P r o s t a t i c H y p e r t r o p h y B e n i g n P r o s t a t i c H y p e r t r o p h y D e p r e s s i o n C o r o n a r y A r t e r y D i s e a s e C o r o n a r y A r t e r y D i s e a s e B e n i g n P r o s t a t i c H y p e r t r o p h y B e n i g n P r o s t a t i c H y p e r t r o p h y L o w B a c k P a i n E s s e n t i a l H y p e r t e n s i o n E p i l e p s y D i a b e t e s M e l l i t u s D e p r e s s i o n C o r o n a r y A r t e r y D i s e a s e C o r o n a r y A r t e r y D i s e a s e B e n i g n P r o s t a t i c H y p e r t r o p h y B e n i g n P r o s t a t i c H y p e r t r o p h y L o w B a c k P a i n E s s e n t i a l H y p e r t e n s i o n E p i l e p s y D i a b e t e s M e l l i t u s D e p r e s s i o n C o r o n a r y A r t e r y D i s e a s e C o r o n a r y A r t e r y D i s e a s e B e n i g n P r o s t a t i c H y p e r t r o p h y B e n i g n P r o s t a t i c H y p e r t r o p h y L o w B a c k P a i n E s s e n t i a l H y p e r t e n s i o n E p i l e p s y D i a b e t e s M e l l i t u s D e p r e s s i o n C o r o n a r y A r t e r y D i s e a s e C o r o n a r y A r t e r y D i s e a s e B e n i g n P r o s t a t i c H y p e r t r o p h y B e n i g n P r o s t a t i c H y p e r t r o p h y L o w B a c k P a i n E s s e n t i a l H y p e r t e n s i o n E p i l e p s y D i a b e t e s M e l l i t u s D e p r e s s i o n C o r o n a r y A r t e r y D i s e a s e C o r o n a r y A r t e r y D i s e a s e B e n i g n P r o s t a t i c H y p e r t r o p h y B e n i g n P r o s t a t i c H y p e r t r o p h y L o w B a c k P a i n E s s e n t i a l H y p e r t e n s i o n E p i l e p s y D i a b e t e s M e l l i t u s D e p r e s s i o n C o r o n a r y A r t e r y D i s e a s e C o r o n a r y A r t e r y D i s e a s e B e n i g n P r o s t a t i c H y p e r t r o p h y B e n i g n P r o s t a t i c H y p e r t r o p h y L o w B a c k P a i n E s s e n t i a l H y p e r t e n s i o n E p i l e p s y D i a b e t e s M e l l i t u s D e p r e s s i o n C o r o n a r y A r t e r y D i s e a s e C o r o n a r y A r t e r y D i s e a s e B e n i g n P r o s t a t i c H y p e r t r o p h y B e n i g n P r o s t a t i c H y p e r t r o p h y L o w B a c k P a i n E s s e n t i a l H y p e r t e n s i o n E p i l e p s y D i a b e t e s M e l l i t u s D e p r e s s i o n C o r o n a r y A r t e r y D i s e a s e C o r o n a r y A r t e r y D i s e a s e B e n i g n P r o s t a t i c H y p e r t r o p h y B e n i g n P r o s t a t i c H y p e r t r o p h y L o w B a c k P a i n E s s e n t i a l H y p e r t e n s i o n E p i l e p s y D i a b e t e s M e l l i t u s D e p r e s s i o n C o r o n a r y A r t e r y D i s e a s e C o r o n a r y A r t e r y D i s e a s e B e n i g n P r o s t a t i c H y p e r t r o p h y B e n i g n P r o s t a t i c H y p e r t r o p h y L o w B a c k P a i n E s s e n t i a l H y p e r t e n s i o n E p i l e p s y D i a b e t e s M e l l i t u s D e p r e s s i o n C o r o n a r y A r t e r y D i s e a s e C o r o n a r y A r t e r y D i s e a s e B e n i g n P r o s t a t i c H y p e r t r o p h y B e n i g n P r o s t a t i c H y p e r t r o p h y E s s e n t i a l H y p e r t e n s i o n E p i l e p s y D i a b e t e s M e l l i t u s C o r o n a r y A r t e r y D i s e a s e L o w B a c k P a i n E s s e n t i a l H y p e r t e n s i o n E p i l e p s y D i a b e t e s M e l l i t u s D e p r e s s i o n C o r o n a r y A r t e r y D i s e a s e C o r o n a r y A r t e r y D i s e a s e B e n i g n P r o s t a t i c H y p e r t r o p h y B e n i g n P r o s t a t i c H y p e r t r o p h y L o w B a c k P a i n E s s e n t i a l H y p e r t e n s i o n E p i l e p s y D i a b e t e s M e l l i t u s D e p r e s s i o n C o r o n a r y A r t e r y D i s e a s e C o r o n a r y A r t e r y D i s e a s e B e n i g n P r o s t a t i c H y p e r t r o p h y B e n i g n P r o s t a t i c H y p e r t r o p h y L o w B a c k P a i n E s s e n t i a l H y p e r t e n s i o n E p i l e p s y D i a b e t e s M e l l i t u s D e p r e s s i o n C o r o n a r y A r t e r y D i s e a s e C o r o n a r y A r t e r y D i s e a s e B e n i g n P r o s t a t i c H y p e r t r o p h y B e n i g n P r o s t a t i c H y p e r t r o p h y L o w B a c k P a i n E s s e n t i a l H y p e r t e n s i o n E p i l e p s y D i a b e t e s M e l l i t u s D e p r e s s i o n C o r o n a r y A r t e r y D i s e a s e C o r o n a r y A r t e r y D i s e a s e B e n i g n P r o s t a t i c H y p e r t r o p h y B e n i g n P r o s t a t i c H y p e r t r o p h y L o w B a c k P a i n E s s e n t i a l H y p e r t e n s i o n E p i l e p s y D i a b e t e s M e l l i t u s D e p r e s s i o n C o r o n a r y A r t e r y D i s e a s e C o r o n a r y A r t e r y D i s e a s e B e n i g n P r o s t a t i c H y p e r t r o p h y B e n i g n P r o s t a t i c H y p e r t r o p h y L o w B a c k P a i n E s s e n t i a l H y p e r t e n s i o n E p i l e p s y D i a b e t e s M e l l i t u s D e p r e s s i o n C o r o n a r y A r t e r y D i s e a s e C o r o n a r y A r t e r y D i s e a s e B e n i g n P r o s t a t i c H y p e r t r o p h y B e n i g n P r o s t a t i c H y p e r t r o p h y L o w B a c k P a i n E s s e n t i a l H y p e r t e n s i o n E p i l e p s y D i a b e t e s M e l l i t u s D e p r e s s i o n C o r o n a r y A r t e r y D i s e a s e C o r o n a r y A r t e r y D i s e a s e B e n i g n P r o s t a t i c H y p e r t r o p h y B e n i g n P r o s t a t i c H y p e r t r o p h y L o w B a c k P a i n E s s e n t i a l H y p e r t e n s i o n E p i l e p s y D i a b e t e s M e l l i t u s D e p r e s s i o n C o r o n a r y A r t e r y D i s e a s e C o r o n a r y A r t e r y D i s e a s e B e n i g n P r o s t a t i c H y p e r t r o p h y B e n i g n P r o s t a t i c H y p e r t r o p h y L o w B a c k P a i n E s s e n t i a l H y p e r t e n s i o n E p i l e p s y D i a b e t e s M e l l i t u s D e p r e s s i o n C o r o n a r y A r t e r y D i s e a s e C o r o n a r y A r t e r y D i s e a s e B e n i g n P r o s t a t i c H y p e r t r o p h y B e n i g n P r o s t a t i c H y p e r t r o p h y L o w B a c k P a i n E s s e n t i a l H y p e r t e n s i o n E p i l e p s y D i a b e t e s M e l l i t u s D e p r e s s i o n C o r o n a r y A r t e r y D i s e a s e C o r o n a r y A r t e r y D i s e a s e B e n i g n P r o s t a t i c H y p e r t r o p h y B e n i g n P r o s t a t i c H y p e r t r o p h y L o w B a c k P a i n E s s e n t i a l H y p e r t e n s i o n E p i l e p s y D i a b e t e s M e l l i t u s D e p r e s s i o n C o r o n a r y A r t e r y D i s e a s e C o r o n a r y A r t e r y D i s e a s e B e n i g n P r o s t a t i c H y p e r t r o p h y B e n i g n P r o s t a t i c H y p e r t r o p h y L o w B a c k P a i n E s s e n t i a l H y p e r t e n s i o n E p i l e p s y D i a b e t e s M e l l i t u s D e p r e s s i o n C o r o n a r y A r t e r y D i s e a s e C o r o n a r y A r t e r y D i s e a s e B e n i g n P r o s t a t i c H y p e r t r o p h y B e n i g n P r o s t a t i c H y p e r t r o p h y L o w B a c k P a i n E s s e n t i a l H y p e r t e n s i o n E p i l e p s y D i a b e t e s M e l l i t u s D e p r e s s i o n C o r o n a r y A r t e r y D i s e a s e C o r o n a r y A r t e r y D i s e a s e B e n i g n P r o s t a t i c H y p e r t r o p h y B e n i g n P r o s t a t i c H y p e r t r o p h y L o w B a c k P a i n E s s e n t i a l H y p e r t e n s i o n E p i l e p s y D i a b e t e s M e l l i t u s D e p r e s s i o n C o r o n a r y A r t e r y D i s e a s e C o r o n a r y A r t e r y D i s e a s e B e n i g n P r o s t a t i c H y p e r t r o p h y B e n i g n P r o s t a t i c H y p e r t r o p h y L o w B a c k P a i n E s s e n t i a l H y p e r t e n s i o n E p i l e p s y D i a b e t e s M e l l i t u s D e p r e s s i o n C o r o n a r y A r t e r y D i s e a s e C o r o n a r y A r t e r y D i s e a s e B e n i g n P r o s t a t i c H y p e r t r o p h y B e n i g n P r o s t a t i c H y p e r t r o p h y L o w B a c k P a i n E s s e n t i a l H y p e r t e n s i o n E p i l e p s y D i a b e t e s M e l l i t u s D e p r e s s i o n C o r o n a r y A r t e r y D i s e a s e C o r o n a r y A r t e r y D i s e a s e B e n i g n P r o s t a t i c H y p e r t r o p h y B e n i g n P r o s t a t i c H y p e r t r o p h y L o w B a c k P a i n E s s e n t i a l H y p e r t e n s i o n E p i l e p s y D i a b e t e s M e l l i t u s D e p r e s s i o n C o r o n a r y A r t e r y D i s e a s e C o r o n a r y A r t e r y D i s e a s e B e n i g n P r o s t a t i c H y p e r t r o p h y B e n i g n P r o s t a t i c H y p e r t r o p h y L o w B a c k P a i n L o w B a c k P a i n E s s e n t i a l H y p e r t e n s i o n E p i l e p s y D i a b e t e s M e l l i t u s E s s e n t i a l H y p e r t e n s i o n E p i l e p s y D i a b e t e s M e l l i t u s D e p r e s s i o n C o r o n a r y A r t e r y D i s e a s e C o r o n a r y A r t e r y D i s e a s e B e n i g n P r o s t a t i c H y p e r t r o p h y B e n i g n P r o s t a t i c H y p e r t r o p h y L o w B a c k P a i n E s s e n t i a l H y p e r t e n s i o n E p i l e p s y D i a b e t e s M e l l i t u s D e p r e s s i o n C o r o n a r y A r t e r y D i s e a s e C o r o n a r y A r t e r y D i s e a s e B e n i g n P r o s t a t i c H y p e r t r o p h y B e n i g n P r o s t a t i c H y p e r t r o p h y Low Back Pain Depression Low Back Pain Depression Low Back Pain Depression Low Back Pain Depression Low Back Pain Depression Low Back Pain Depression Low Back Pain Depression Low Back Pain Depression Low Back Pain Depression Low Back Pain Depression Low Back Pain Depression Low Back Pain Depression Low Back Pain Depression Low Back Pain Depression Low Back Pain Depression Low Back Pain Depression Low Back Pain Depression Low Back Pain Depression Low Back Pain Depression Low Back Pain Depression Low Back Pain Depression Low Back Pain Depression Low Back Pain Depression Low Back Pain Depression 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 Coronary Artery Disease Benign Prostatic Hypertrophy Benign Prostatic 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 Low Back Pain Essential Hypertension Epilepsy Diabetes Mellitus Depression 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 Low Back Pain Essential Hypertension Epilepsy Diabetes Mellitus Depression 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 Low Back Pain Essential Hypertension Epilepsy Diabetes Mellitus Depression 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 Depression 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 Low Back Pain Essential Hypertension Epilepsy Diabetes Mellitus Depression 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 Low Back Pain Essential Hypertension Epilepsy Diabetes Mellitus Depression 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 Low Back Pain Essential Hypertension Epilepsy Diabetes Mellitus Depression 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 Low Back Pain Essential Hypertension Epilepsy Diabetes Mellitus Depression 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 Low Back Pain Essential Hypertension Epilepsy Diabetes Mellitus Depression 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 Low Back Pain Essential Hypertension Epilepsy Diabetes Mellitus Depression 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 Low Back Pain Essential Hypertension Epilepsy Diabetes Mellitus Depression 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 Low Back Pain Essential Hypertension Epilepsy Diabetes Mellitus Depression 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 Low Back Pain Essential Hypertension Epilepsy Diabetes Mellitus Depression 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 Low Back Pain Essential Hypertension Epilepsy Diabetes Mellitus Depression 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 Low Back Pain Essential Hypertension Epilepsy Diabetes Mellitus Depression 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 Low Back Pain Essential Hypertension Epilepsy Diabetes Mellitus Depression 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 Low Back Pain Essential Hypertension Epilepsy Diabetes Mellitus Depression 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 Low Back Pain Essential Hypertension Epilepsy Diabetes Mellitus Depression 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 Low Back Pain Essential Hypertension Epilepsy Diabetes Mellitus Depression 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 Low Back Pain Essential Hypertension Epilepsy Diabetes Mellitus Depression 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 Low Back Pain Essential Hypertension Epilepsy Diabetes Mellitus Depression 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 Low Back Pain Essential Hypertension Epilepsy Diabetes Mellitus Depression 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 Low Back Pain Essential Hypertension Epilepsy Diabetes Mellitus Depression 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 Low Back Pain Essential Hypertension Epilepsy Diabetes Mellitus Depression 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 Low Back Pain Essential Hypertension Epilepsy Diabetes Mellitus Depression 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 Low Back Pain Essential Hypertension Epilepsy Diabetes Mellitus Depression 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 Low Back Pain Essential Hypertension Epilepsy Diabetes Mellitus Depression 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 Low Back Pain Essential Hypertension Epilepsy Diabetes Mellitus Depression 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 Low Back Pain Essential Hypertension Epilepsy Diabetes Mellitus Depression 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 Low Back Pain Essential Hypertension Epilepsy Diabetes Mellitus Depression 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 Health EDT [facility]</td><td>[facility] 10/21/2011 Health Center</td><td>10/21/2011</td><td></td> 11:59:0 0 PM Center) EDT Outpatient<td Attender: [facility] 12/19/2010 RADHA ID="[id number]">Follow MARINOCARMELITA King 03:30: 00 PM ([facility]</td><td>[facility]</td><td>[facility] EDT - [facility] GISSEL [facility] 12/19/2010 Health Center</td><td>12/19/2010</td><td></td> Center 11:59:0 0 PM Center) EDT Outpatient<td Attender: Wu 12/19/2010 CHAMBERINO ID="[id number]">Follow [facility] 10:30: 00 AM ([facility]</td><td>[facility] Health EDT - [facility]</td><td>[facility] 12/19/2010 Health Center</td><td>12/19/2010</td><td></td> 11:59:0 0 PM Center) EDT Medications Medication Brand Start Product Dose Route Administrative Pharmacy [facility] Indications Reaction Description Data Name Date Form Instructions Instructions Source(s) Alprazolam Xanax 01/02/ active alprazola m 2 NEXTGEN 2 MG Oral 2 mg 2020 MG Oral ([facility] Tablet tablet 12:00: Tablet Twyla [Xanax] 00 AM [Xanax] Medical Xanax 2 mg EDT Center) tablet I stop #[id number] quetiapine Seroquel 01/03/2020 1 {tablet} ORAL active quetiapine NEXTGEN 200 MG Oral 200 mg 12:00:00 AM 200 MG Oral ([facility] Tablet tablet EDT Tablet Twyla [Seroquel] [Seroquel] Med ical Seroquel 200 Center) mg tablet quetiapine Seroquel 12/06/2019 1 {tablet} ORAL completed quetiapine NEXTGEN 200 MG Oral 200 mg 12:00:00 AM 200 MG Oral ([facility] Tablet tablet EDT Tablet Twyla [Seroquel] [Seroquel] Med ical Seroquel 200 [place]) mg tablet Alprazolam 2 Xanax 2 mg 12/06/2019 completed alprazolam NEXTGEN MG Oral tablet 12:00:00 AM 2 MG Ora l ([facility] Tablet EDT Tablet Twyla [Xanax] [Xanax] Medical Xanax 2 mg [place]) tablet I stop #[id number] Keppra 500MG Keppra 500MG 11/29/2019 UNIT 1 active Keppra RADHA Oral Tablet Oral [facility]:00:00 [facility] Amlodipine 5 amLODIPine 11/29/2019 UNIT 1 active amLODIPine RADHA MG Oral Besylate 5MG 12:00:00 AM Be sylate ([facility] Tablet Oral Tablet EDT [facility] amLODIPine Health Besylate 5MG [place]) Oral Tablet Aspirin 81 MG Adult Aspirin 11/29/2019 UNIT 1 active Miniprin RADHA Delayed Regimen 81MG 12:00:00 AM ([facility] Release Oral Oral Tablet EDT [facility] Tablet Adult Delayed Heal th Aspirin Release [place]) Regimen 81MG Oral Tablet Delayed Release Simvastatin Simvastatin 11/29/2019 UNIT 1 active Simvastatin RADHA 20 MG Oral 20MG Oral 12:00:00 AM ([facility] 20[facility] Oral [place]) Tablet gabapentin Gabapentin 11/29/2019 UNIT 1 active Gabapentin RADHA 300 MG Oral 300MG Oral 12:00:00 AM ([facility] Capsule Capsule EDT [facility] ood Gabapentin Health 300MG Oral [place]) Capsule Alprazolam 2 Xanax 2 mg 11/08/2019 completed alprazolam 2 NEXTGEN MG Oral tablet 12:00:00 AM MG Oral ([facility] Tablet EDT Tablet Twyla [Xanax] Xanax [Xanax] Med ical 2 mg tablet Center) I stop #[id number] quetiapine Seroquel 11/08/2019 1 ORAL completed quetiapine NEXTGEN 200 MG Oral 200 mg 12:00:00 AM {tablet} 200 MG Oral ([facility] Tablet tablet EDT Tablet Twyla [Seroquel] [Seroquel] Med ical Seroquel 200 [place]) mg tablet Ozempic (0.25 Ozempic 10/24/2019 UN active Ozempic RADHA or 0.5 (0.25 or 12:00:00 AM IT (M ount MG/DOSE) 0.5 EDT Fernando Subcutaneous MG/DOSE) Nei [facility] Solution Subcutaneou ood Pen-injector s Solution [facility] Pen-injecto [place]) r Glumetza Glumetza 10/24/2019 UN active Glum etza RADHA 500MG Oral 500MG Oral 12:00:00 AM IT ([facility] Tablet Tablet EDT Fernando Extended Extended [place] Release 24 Release 24 ood Hour [facility]) Lancets Lancets 10/23/2019 UN 1 active Lancet s RADHA Miscellaneous Miscellaneo 12:00:00 AM IT ([facility] us EDT Fernando [facility]) Blood Glucose Blood 10/23/2019 UN 1 active Bl ood RADHA Test In Vitro Glucose 12:00:00 AM IT G lucose ([facility] Strip Test In EDT Test Fernando Vitro Strip [facility]) quetiapine Seroquel 10/10/2019 1 {tbl} ORAL completed quetiapine NEXTGEN 200 MG Oral 200 mg 12:00:00 AM 200 MG Oral ([facility] Tablet tablet EDT Tablet Twyla [Seroquel] [Seroquel] Med ical Seroquel 200 [place]) mg tablet Alprazolam 2 Xanax 2 mg 10/10/2019 completed Alprazolam NEXTGEN MG Oral tablet 12:00:00 AM 2 MG Ora l ([facility] Tablet EDT Tablet Twyla [Xanax] Xanax [Xanax] Med ical 2 mg tablet [place]) I stop #[id number] quetiapine Seroquel 09/15/2019 1 {tbl} ORAL completed quetiapine NEXTGEN 200 MG Oral 200 mg 12:00:00 AM 200 MG Oral ([facility] Tablet tablet EDT Tablet Twyla [Seroquel] [Seroquel] Med ical Seroquel 200 [place]) mg tablet Alprazolam 2 Xanax 2 mg 09/15/2019 completed Alprazolam NEXTGEN MG Oral tablet 12:00:00 AM 2 MG Ora l ([facility] Tablet EDT Tablet Twyla [Xanax] [Xanax] Medical Xanax 2 mg [place]) tablet I stop #[id number] Lidocaine 5% Lidocaine 5% 09/08/2019 UNIT 1 completed Lidocaine RADHA External External 12:00:00 AM ([facility] Patch Patch [facility]) Naproxen 375 Naproxen 09/08/2019 UNIT 1 completed Naproxen RADHA MG Oral 375MG Oral 12:00:00 AM ([facility] Tablet Tablet [facility] Naproxen Health 375MG [facility]) Tablet [place] 3 [place] 3 09/08/2019 UNIT 1 suspended [place]me [place] 3 RADHA 1000MG Oral 1000MG Oral 12:00:00 AM ([place] Capsule Capsule [facility]) [place] 3 [place] 3 09/08/2019 UNIT 1 active [place] 3 RADHA 1000MG Oral 1000MG Oral 12:00:00 AM ([facility] Capsule Capsule [facility]) Aspirin 81 MG Adult 09/08/2019 UNIT 1 suspended Miniprin RADHA Delayed Aspirin 12:00:00 AM (M ount Fernando Release Oral Regimen 81MG [facility] Adult Oral Tablet Health Aspirin Delayed [place]) Regimen 81MG Release Oral Tablet Delayed Release Amlodipine 5 amLODIPine 09/08/2019 UNIT 1 suspended amLODIPine RADHA MG Oral Besylate 5MG 12:00:00 AM Be sylate ([facility] Tablet Oral Tablet [facility] amLODIPine Health Besylate 5MG [place]) Oral Tablet [place] 3 [place] 3 09/08/2019 UNIT 1 suspended [place] 3 RADHA 1000MG Oral 1000MG Oral 12:00:00 AM ([facility] Capsule Capsule [facility]) Naproxen 375 Naproxen 09/08/2019 UNIT 1 suspended Naproxen RADHA MG Oral 375MG Oral 12:00:00 AM ([facility] Tablet Tablet [facility] Naproxen Health 375MG [facility]) Tablet Lidocaine 5% Lidocaine 5% 09/08/2019 UNIT 1 suspended Lidocaine RADHA External External 12:00:00 AM ([facility] Patch Patch [facility]) Simvastatin Simvastatin 09/08/2019 UNIT 1 suspended Simvastatin RADHA 20 MG Oral 20MG Oral 12:00:00 AM ([facility] Tablet Tablet [facility] Simvastatin Health 20MG [facility]) Tablet Insulin Insulin 09/08/2019 UNIT 1 active Insuli n RADHA Syringe-Needl Syringe-Need 12:00:00 AM Syringe-Need ([facility] e U-100 31G X le U-100 31G EDT le U-100 [facility] 4"0.3 ML X 4"0.3 ML H ealt [facility] s Metformin metFORMIN 09/08/2019 UNIT 1 active me tFORMIN RADHA hydrochloride HCl 850MG 12:00:00 AM HCl ([facility] 850 MG Oral Oral Tablet [facility] Tablet Health metFORMIN HCl [place] ) 850MG Oral Tablet Alcohol Pads Alcohol Pads 09/08/2019 UNIT active Alcohol Pads RADHA 70% 70% 12:00:00 AM ([facility] V ernon [facility]) Keppra 500MG Keppra 500MG 09/08/2019 UNIT 1 suspended Keppra RADHA Oral Tablet Oral Tablet 12:00:00 AM ([facility]) Ozempic (0.25 Ozempic 09/08/2019 UNIT suspended Ozempic RADHA or 0.5 (0.25 or 0.5 12:00:00 AM ([facility] MG/DOSE) MG/DOSE) EDT [facility] Subcutaneous Subcutaneous Health Solution Solution [place]) Pen-injector Pen-injector Amlodipine 5 amLODIPine 09/08/2019 UNIT 1 suspended amLODIPine RADHA MG Oral Besylate 5MG 12:00:00 AM Be sylate ([facility] Tablet Oral Tablet [facility] amLODIPine Health Besylate 5MG [place]) Oral Tablet Aspirin 81 MG Adult 09/08/2019 UNIT 1 suspended Miniprin RADHA Delayed Aspirin 12:00:00 AM (M ount Fernando Release Oral Regimen 81MG [facility] Tablet Adult Oral Tablet Health Aspirin Delayed [place]) Regimen 81MG Release Oral Tablet Delayed Release NovoLIN R NovoLIN R 08/30/2019 CAPFUL completed Novolin R RADHA 100UNIT/ML IJ 100UNIT/ML 12:00:00 AM DOSING ([facility] SOLN IJ SOLN EDT [facility]) Medication administered onsite [facility]: [id number] gabapentin Gabapentin 08/21/2019 UNIT 1 active Gabapentin RADHA 300 MG Oral 300MG Oral 12:00:00 AM ([facility] Capsule Capsule [facility] Gabapentin Health 300MG Oral [place]) Capsule quetiapine Seroquel 200 08/16/2019 1 ORAL completed quetiapine NEXTGEN 200 MG Oral mg tablet 12:00:00 AM {t 2 00 MG Oral ([facility] Tablet EDT bl Tablet Twyla [Seroquel] } [Seroquel] Med ical Seroquel 200 [place]) mg tablet Alprazolam 2 Xanax 2 mg 08/16/2019 completed Alprazolam NEXTGEN MG Oral tablet 12:00:00 AM 2 MG Ora l ([facility] Tablet EDT Tablet Twyla [Xanax] [Xanax] Medical Xanax 2 mg [place]) tablet I stop #[id number] gabapentin Gabapentin 07/27/2019 UNIT 1 suspended Gabapentin RADHA 300 MG Oral 300MG Oral 12:00:00 AM (Annia King Capsule Capsule EDT [facility] ood Gabapentin Health 300MG Oral [place]) Capsule quetiapine Seroquel 200 07/18/2019 1 ORAL completed quetiapine NEXTGEN 200 MG Oral mg tablet 12:00:00 AM {t 2 00 MG Oral ([facility] Tablet EDT bl Tablet Twyla [Seroquel] } [Seroquel] Med ical Seroquel 200 [place]) mg tablet Alprazolam 2 Xanax 2 mg 07/18/2019 completed Alprazolam NEXTGEN MG Oral tablet 12:00:00 AM 2 MG Ora l ([facility] Tablet EDT Tablet Twyla [Xanax] [Xanax] Medical Xanax 2 mg [place]) tablet I stop #[id number] Blood Glucose Blood Glucose 06/29/2019 UNIT 1 suspended Blood Glucose RADHA Test In Vitro Test In Vitro 12:00:00 AM Test ([facility] Strip Strip [facility]) Glumetza Glumetza 06/29/2019 UNIT 1 suspended G lumetza RADHA 500MG Oral 500MG Oral 12:00:00 AM ([facility] Release [address]) Hour Hour Insulin Insulin 06/29/2019 UNIT 1 suspended Ins ulin RADHA Syringe-Needl Syringe-Needl 12:00:00 AM Syringe-Needl ([facility] e U-100 31G X e U-100 31G X EDT e U-100 Neighborhood 1/4"0.3 ML 4"0.3 ML [facility] Miscellaneous Miscellaneous [place]) Amlodipine 5 amLODIPine 06/29/2019 UNIT 1 suspended amLODIPine RADHA MG Oral Besylate 5MG 12:00:00 AM Be sylate ([place] Tablet Oral Tablet EDT [place] amLODIPine Health Besylate 5MG [place]) Oral Tablet Acetaminophen Acetaminophen 06/29/2019 UNIT completed Acetaminophen RADHA 325 MG Oral 325MG OR TABS 12:00:00 AM ([facility] Tablet T [facility] Acetaminophen Health 325MG OR TABS [place] ) Medication administered onsite [facility]: [id number] Keppra 500MG Keppra 500MG 06/29/2019 UNIT 1 suspended Keppra RADHA Oral Tablet Oral Tablet 12:00:00 AM ([facility]) Lancets Lancets 06/29/2019 UNIT 1 suspended Marc cets RADHA Miscellaneou Miscellaneou 12:00:00 AM (Bru[facility] s [facility]) Ozempic Ozempic 06/29/2019 UNIT suspended Oze mpic RADHA (0.25 or 0.5 (0.25 or 0.5 12:00:00 AM ([facility] MG/DOSE) MG/DOSE) EDT [place] Subcutaneous Subcutaneous Health Solution Solution [place]) Pen-injector Pen-injector Simvastatin Simvastatin 06/29/2019 UNIT 1 suspended Simvastatin RADHA 20 MG Oral 20MG Oral 12:00:00 AM ([facility] Tablet Tablet T [facility] d Simvastatin Health 20MG Oral [place]) Tablet Aspirin 81 Adult 06/29/2019 UNIT 1 suspended Mi niprin RADHA MG Delayed Aspirin 12:00:00 AM ([facility] Oral Tablet Health Aspirin Delayed [place]) Regimen 81MG Release Oral Tablet Delayed Release Tylenol 8 Tylenol 8 06/26/2019 UNIT 1 completed Mapap RADHA Hour Hour 12:00:00 AM (Annia Kiera locke Arthritis Arthritis EDT [place] Pain 650MG Pain 650MG Hea lth Oral Tablet Oral Tablet C enter) Extended Extended Release Release quetiapine Seroquel 200 06/20/2019 1 ORAL completed quetiapine NEXTGEN 200 MG Oral mg tablet 12:00:00 AM {t 2 00 MG Oral ([facility] Tablet EDT bl Tablet Twyla [Seroquel] } [Seroquel] Med ical Seroquel 200 [place]) mg tablet Alprazolam 2 Xanax 2 mg 06/20/2019 1 ORAL completed Alprazolam NEXTGEN MG Oral tablet 12:00:00 AM {t 2 MG Ora l ([facility] Tablet EDT bl Tablet Twyla [Xanax] } [Xanax] Medical Xanax 2 mg [place]) tablet I stop #[id number] Insulin Insulin 06/05/2019 UNIT 1 suspended Ins ulin RADHA Syringe-Needle Syringe-Needle 12:00:00 AM Syringe-Needle ([facility] U-100 31G X U-100 31G X EST U-100 Neighborhood 04/15"0.3 ML 04/15"0.3 ML [facility] Miscellaneous Miscellaneous [place]) Lancets Lancets 06/05/2019 UNIT 1 suspended Marc cets [facility] 12:00:00 AM ([facility]) Blood Glucose Blood Glucose 06/05/2019 UNIT 1 suspended Blood Glucose RADHA Test In Vitro Test In Vitro 12:00:00 AM Test ([facility] Strip Strip [facility]) Glumetza 1000MG Glumetza 1000MG 06/05/2019 UNIT 1 suspend ed Glumetza RADHA Oral Tablet Oral Tablet 12:00:00 AM ([facility] Extended Extended EST [place] Release 24 Hour Release 24 Hour Health [place]) Aspirin 81 MG Adult Aspirin 06/05/2019 UNIT 1 suspended Miniprin RADHA Delayed Release Regimen 81MG 12:00:00 AM ([facility] Oral Tablet Oral Tablet EST N [facility] Adult Aspirin Delayed Release Health Regimen 81MG [place]) Oral Tablet Delayed Release NovoLIN R NovoLIN R 06/05/2019 CAPFU completed Novolin R RADHA 100UNIT/ML IJ 100UNIT/ML IJ 12:00:00 AM L ([facility] SOLN SOLN [facility]) Medication administered onsite [facility]: [id number] Simvastatin Simvastatin 06/05/2019 UNIT 1 suspended Simvastatin RADHA 20 MG Oral 20MG Oral 12:00:00 AM ([place] Tablet Tablet EST [place] Simvastatin Health 20MG Oral [place]) Tablet Amlodipine 5 amLODIPine 06/05/2019 UNIT 1 suspended amLODIPine RADHA MG Oral Besylate 5MG 12:00:00 AM Be sylate ([place] Tablet Oral Tablet EST [facility] [place] amLODIPine Health Besylate 5MG [place]) Oral Tablet Keppra 500MG Keppra 500MG 06/05/2019 UNIT 1 suspended Keppra RADHA Oral Tablet Oral Tablet 12:00:00 AM (Annia King EST [facility]) Ozempic (0.25 Ozempic (0.25 06/05/2019 UNIT suspended Ozempic RADHA or 0.5 or 0.5 12:00:00 AM (Maria D nt Fernando MG/DOSE) MG/DOSE) EST [place] Subcutaneous Subcutaneous Health Solution Solution [place]) Pen-injector Pen-injector Glumetza Glumetza 06/05/2019 UNIT 1 suspended G lumetza RADHA 500MG Oral 500MG Oral 12:00:00 AM ([facility] Tablet Tablet EST [place] Extended Extended Health Release [address]) Hour Hour Alprazolam 2 Xanax 2 mg 05/23/2019 1 OR completed Alprazolam 2 NEXTGEN MG Oral tablet 12:00:00 AM {t AL MG Oral ([facility] Tablet EST bl Tablet Twyla [Xanax] Xanax } [Xanax] Med ical 2 mg tablet [place]) I stop #[id number] quetiapine Seroquel 05/23/2019 1 ORAL completed quetiapine NEXTGEN 200 MG Oral 200 mg 12:00:00 AM {tbl} 200 MG Oral ([facility] Tablet tablet EST Tablet Twyla [Seroquel] [Seroquel] Med ical Seroquel [place]) 200 mg tablet Glumetza Glumetza 05/02/2019 UNIT 1 suspended G lumetza RADHA 1000MG Oral 1000MG 12:00:00 AM ([facility] Tablet Oral EST [facility] Extended Tablet Health Release 24 Extended Cente r) Hour Release 24 Hour quetiapine Seroquel 04/25/2019 1 ORAL completed quetiapine NEXTGEN 200 MG Oral 200 mg 12:00:00 AM {tbl} 200 MG Oral ([facility] Tablet tablet EST Tablet Twyla [Seroquel] [Seroquel] Med ical Seroquel [place]) 200 mg tablet quetiapine Seroquel 04/25/2019 1 ORAL completed quetiapine NEXTGEN 200 MG Oral 200 mg 12:00:00 AM {tbl} 200 MG Oral ([facility] Tablet tablet EST Tablet Twyla [Seroquel] [Seroquel] Med ical Seroquel [place]) 200 mg tablet Medication administered onsite Alprazolam 2 Xanax 2 04/25/2019 1 {tbl} ORAL completed Alprazolam 2 NEXTGEN MG Oral mg 12:00:00 AM MG Oral (S aint Tablet tablet EST Tablet Twyla [Xanax] [Xanax] Medical Xanax 2 mg Center) tablet I stop #[id number] Alprazolam 2 Xanax 2 03/28/2019 1 {tbl} ORAL completed Alprazolam 2 NEXTGEN MG Oral mg 12:00:00 AM MG Oral (S aint Tablet tablet EST Tablet Twyla [Xanax] [Xanax] Medical Xanax 2 mg Center) tablet I stop #[id number] quetiapine Seroquel 03/28/2019 1 ORAL completed quetiapine NEXTGEN 200 MG Oral 200 mg 12:00:00 AM {tbl} 200 MG Oral ([facility] Tablet tablet EST Tablet Twyla [Seroquel] [Seroquel] Med ical Seroquel 200 [place]) mg tablet Ozempic (0.25 Ozempic 03/20/2019 UNI suspended Ozempic RADHA or 0.5 (0.25 or 12:00:00 AM T (M ount MG/DOSE) 0.5 EST Fernando Subcutaneous MG/DOSE) Nei borho Solution Subcutaneou od H ealth Pen-injector s Solution C enter) Pen-injecto r Metformin metFORMIN 03/20/2019 UNI 1 suspended metFORMIN RADHA hydrochloride HCl 1000MG 12:00:00 AM T HCl ([place] 1000 MG Oral Oral Tablet EST Fernando Tablet [place]ighbor[place] metFORMIN HCl od Hea lth 1000MG Oral Center) Tablet Keppra 500MG Keppra 03/20/2019 UNI 1 suspended Keppra RADHA Oral Tablet 500MG Oral 12:00:00 AM T ([facility] Tablet EST Fernando [facility] Simvastatin Simvastatin 03/20/2019 UNI 1 suspended Simvastatin RADHA 20 MG Oral 20MG Oral 12:00:00 AM T ([facility] Tablet Tablet EST Fernando Simvastatin Neighbor ho 20MG Oral od Health Tablet [place]) Amlodipine 5 amLODIPine 03/20/2019 UNI 1 suspended amLODIPine RADHA MG Oral Besylate 12:00:00 AM T Besyla te ([place] Tablet 5MG Oral EST Fernando amLODIPine Tablet [place] Besylate 5MG od [facility] th Oral Tablet Center) quetiapine Seroquel 02/28/2019 1 ORAL completed quetiapine NEXTGEN 200 MG Oral 200 mg 12:00:00 AM {tbl} 200 MG Oral ([facility] Tablet tablet EST Tablet Twyla [Seroquel] [Seroquel] Med ical Seroquel 200 [place]) mg tablet Alprazolam 2 Xanax 2 mg 02/28/2019 1 ORAL completed Alprazolam 2 NEXTGEN MG Oral tablet 12:00:00 AM {tbl} MG Oral ([facility] Tablet EST Tablet Twyla [Xanax] Xanax [Xanax] Med ical 2 mg tablet Center) I stop #[id number] quetiapine Seroquel 02/17/2019 1 {tbl} ORAL completed quetiapine NEXTGEN 200 MG Oral 200 mg 12:00:00 AM 200 MG Oral ([facility] Tablet tablet EST Tablet Twyla [Seroquel] [Seroquel] Med ical Seroquel 200 [place]) mg tablet Alprazolam 2 Xanax 2 mg 02/17/2019 1 {tbl} ORAL completed Alprazolam NEXTGEN MG Oral tablet 12:00:00 AM 2 MG Ora l ([facility] Tablet EST Tablet Twyla [Xanax] [Xanax] Medical Xanax 2 mg [place]) tablet I stop #[id number] Amlodipine 5 amLODIPine 02/01/2019 UNIT 1 suspended amLODIPine RADHA MG Oral Besylate 5MG 12:00:00 AM Be sylate ([facility] Tablet Oral Tablet EDT Neighb orhood amLODIPine Health Besylate 5MG [place]) Oral Tablet Diclofenac Diclofenac 02/01/2019 APPLIC 1 suspended Diclofenac RADHA Sodium 0.01 Sodium 1% 12:00:00 AM ATION Sodium ([facility] MG/MG Topical Transdermal EDT UNIT [facility] Gel Gel Health Diclofenac [place]) Sodium 1% Transdermal Gel Tylenol Extra Tylenol 02/01/2019 UNIT suspended Tactinal RADHA Strength Extra 12:00:00 AM (Mo unt Fernando 500MG Oral Strength EDT [facility] [place] Tablet 500MG Oral Health Tablet [place]) Aspirin 81 MG Adult 02/01/2019 UNIT 1 suspended Miniprin RADHA Delayed Aspirin 12:00:00 AM (M ount Fernando Release Oral Regimen 81MG EDT Neighborhood Tablet Adult Oral Tablet Health Aspirin Delayed [place]) Regimen 81MG Release Oral Tablet Delayed Release Keppra 500MG Keppra 500MG 02/01/2019 UNIT 1 suspended Keppra RADHA Oral Tablet Oral Tablet 12:00:00 AM (Bru[facility]) Ozempic (0.25 Ozempic 02/01/2019 UNIT suspended Ozempic RADHA or 0.5 (0.25 or 0.5 12:00:00 AM ([facility] MG/DOSE) MG/DOSE) EDT [place] Subcutaneous Subcutaneous Health Solution Solution [place]) Pen-injector Pen-injector Simvastatin Simvastatin 02/01/2019 UNIT 1 suspended Simvastatin RADHA 20 MG Oral 20MG Oral 12:00:00 AM ([facility] Tablet [facility] Sim[facility] Health 20MG Oral [place]) Tablet Metformin metFORMIN 02/01/2019 UNIT 1 suspended metFORMIN RADHA hydrochloride HCl 1000MG 12:00:00 AM HCl (Bruin 1000 MG Oral Oral Tablet [facility] metFORMIN HCl [place] ) 1000MG Oral Tablet quetiapine Seroquel 200 01/16/2019 1 OR completed quetiapine NEXTGEN 200 MG Oral mg tablet 12:00:00 AM {t AL 2 00 MG Oral (Saint Tablet EDT bl Tablet Twyla [Seroquel] } [Seroquel] Med ical Seroquel 200 [place]) mg tablet Alprazolam 2 Xanax 2 mg 01/16/2019 1 OR completed Alprazolam 2 NEXTGEN MG Oral tablet 12:00:00 AM {t AL MG Oral (Saint Tablet EDT bl Tablet Twyla [Xanax] Xanax } [Xanax] Med ical 2 mg tablet [place]) I stop #[id number] Alprazolam 2 Xanax 2 01/09/2019 1 {tbl} ORAL completed Alprazolam 2 NEXTGEN MG Oral mg 12:00:00 AM MG Oral (S aint Tablet tablet EDT Tablet Twyla [Xanax] [Xanax] Medical Xanax 2 mg [place]) tablet I stop #[id number] quetiapine Seroquel 12/21/2018 1 {tbl} ORAL completed quetiapine NEXTGEN 200 MG Oral 200 mg 12:00:00 AM 200 MG Oral (Saint Tablet tablet EDT Tablet Twyla [Seroquel] [Seroquel] Med ical Seroquel 200 [place]) mg tablet Alprazolam 2 Xanax 2 mg 12/21/2018 1 {tbl} ORAL completed Alprazolam NEXTGEN MG Oral tablet 12:00:00 AM 2 MG Ora l (Saint Tablet EDT Tablet Twyla [Xanax] [Xanax] Medical Xanax 2 mg [place]) tablet I stop #[id number] Menthol 0.05 [facility] 12/15/2018 UNIT 1 suspended Absorbine RADHA MG/MG Ultra 12:00:00 AM (Bruin Transdermal Strength 5% EDT N eighborhood Patch [facility] External a [facility] Ultra Patch [place]) Strength 5% External Patch Voltaren 1% Voltaren 1% 12/15/2018 APPLICA 1 completed Voltaren RADHA Transdermal Transdermal 12:00:00 AM TION (Bruin Gel Gel EDT [facility]) Simvastatin Simvastatin 12/15/2018 UNIT 1 suspended Simvastatin RADHA 20 MG Oral 20MG Oral 12:00:00 AM (Bruin Tablet Tablet EDT [place] Simvastatin Health 20MG Oral [place]) Tablet Aspirin 81 Aspirin 81 12/15/2018 UNIT 1 suspended Miniprin RADHA MG Delayed Oral Tablet 12:00:00 AM (Bruin Release Oral Delayed EDT [facility] [facility] Tablet Release [facility] Aspirin 81 [place]) Oral Tablet Delayed Release Easy Trak Easy Trak 12/15/2018 UNIT 1 suspended Easy Trak RADHA Blood Blood 12:00:00 AM Blood ([facility] Glucose Test Glucose EDT Glucose T [facility] In Vitro Test In [facility] Strip Vitro Strip Center) Keppra 500MG Keppra 12/15/2018 UNIT 1 suspended Keppra RADHA Oral Tablet 500MG Oral 12:00:00 AM [facility] Metoprolol Metoprolol 12/15/2018 UNIT 1 suspended Metoprolol RADHA Tartrate 25 Tartrate 12:00:00 AM Ta rtrate (Bruin MG Oral 25MG Oral EDT [place] Tablet Tablet [facility] Metoprolol [place]) Tartrate 25MG Oral Tablet Menthol 0.05 [facility] 12/15/2018 UNIT 1 suspended Absorbine RADHA MG/MG Ultra 12:00:00 AM ([facility] Transdermal [facility] [place] [facility] Ultra Patch Center) Strength 5% External Patch Voltaren 1% Voltaren 1% 12/15/2018 APPLICA 1 suspended Voltaren RADHA Transdermal Transdermal 12:00:00 AM TION (Bruin Gel Gel EDT UNIT [facility]) Janumet Aprumet 12/15/2018 UNIT 1 suspended Jasson umet RADHA 50-1000MG 50-1000MG 12:00:00 AM (Bruin Oral Tablet Oral Tablet EDT [facility]) Glipizide 10 glipiZIDE 12/15/2018 UNIT 1 suspended glipiZIDE RADHA MG Oral 10MG Oral 12:00:00 AM ([facility] 10MG Oral [place]) Tablet Alprazolam 2 Xanax 2 mg 11/23/2018 1 ORA completed Alprazolam 2 NEXTGEN MG Oral tablet 12:00:00 AM {t L MG Oral (Saint Tablet EDT bl Tablet Twyla [Xanax] } [Xanax] Medical Xanax 2 mg [place]) tablet I stop #[id number] quetiapine Seroquel 200 11/23/2018 1 ORAL completed quetiapine NEXTGEN 200 MG Oral mg tablet 12:00:00 AM {tbl} 200 MG Oral (Saint Tablet EDT Tablet Twyla [Seroquel] [Seroquel] Med ical Seroquel 200 [place]) mg tablet Glipizide 10 glipiZIDE 11/21/2018 UNI 1 suspended glipiZIDE RADHA MG Oral 10MG Oral 12:00:00 AM T ([facility] Tablet Tablet EDT Fernando glipiZIDE Neighborho 10MG Oral od Health Tablet [place]) Keppra 500MG Keppra 500MG 11/21/2018 UNI 1 suspended Keppra RADHA Oral Tablet Oral Tablet 12:00:00 AM T (Mount EDT Fernando [facility]) Metoprolol Metoprolol 11/21/2018 UNI 1 suspended Metoprolol RADHA Tartrate 25 Tartrate 12:00:00 AM T Ta rtrate (Mount MG Oral 25MG Oral EDT Fernando Tablet Tablet [facility] Metoprolol Health Tartrate [place]) 25MG Oral Tablet Aprumet 11/21/2018 UNI 1 suspended Jasson umet RADHA 50-1000MG 50-1000MG 12:00:00 AM T (Mount Oral Tablet Oral Tablet EDT V ernon [facility]) Simvastatin Simvastatin 11/21/2018 UNI 1 suspended Simvastatin RADHA 20 MG Oral 20MG Oral 12:00:00 AM T (Mount Tablet Tablet EDT Fernando Simvastatin Neighbor ho 20MG Oral Health Tablet [place]) quetiapine Seroquel 200 10/26/2018 1 ORAL completed quetiapine NEXTGEN 200 MG Oral mg tablet 12:00:00 AM {tbl} 200 MG Oral (Saint Tablet EDT Tablet Twyla [Seroquel] [Seroquel] Med ical Seroquel 200 [place]) mg tablet Alprazolam 2 Xanax 2 mg 10/26/2018 1 ORAL completed Alprazolam 2 NEXTGEN MG Oral tablet 12:00:00 AM {tbl} MG Oral (Saint Tablet EDT Tablet Twyla [Xanax] [Xanax] Medical Xanax 2 mg [place]) tablet I stop #[id number] Neurontin Neurontin 10/18/2018 UNIT 1 active Ne urontin RADHA 300MG Oral 300MG Oral 12:00:00 AM (Bruin Capsule Capsule T [facility]) SEROquel XR SEROquel XR 10/18/2018 UNIT 1 active Seroquel RADHA 150MG Oral 150MG Oral 12:00:00 AM (Bruin Tablet Tablet T [facility] d Extended Extended Health Release [address]) Hour Hour Metoprolol Metoprolol 10/18/2018 UNIT 1 suspended Metoprolol RADHA Tartrate 25 Tartrate 12:00:00 AM Ta rtrate (Bruin MG Oral 25MG Oral EDT [facility] Tablet Tablet [facility] Metoprolol [place]) Tartrate 25MG Oral Tablet Xanax 0.25MG Xanax 0.25MG 10/18/2018 UNIT 1 suspended Xanax RADHA Oral Tablet Oral Tablet 12:00:00 AM (Bruin [facility]) NovoLIN R NovoLIN R 10/18/2018 CAPFUL completed Novolin R RADHA 100UNIT/ML 100UNIT/ML 12:00:00 AM DOSING (Bruin IJ SOLN IJ SOLN EDT UNIT [facility]) Medication administered onsite [facility]: [id number] Lisinopril 10 Lisinopril 10/18/2018 UNIT 1 completed Lisinopril RADHA MG Oral 10MG Oral 12:00:00 AM (Bru[place] Tablet Tablet EDT [place] Lisinopril Health 10MG Oral [place]) Tablet Lancets Lancets 10/18/2018 UNIT 1 completed Marc cets RADHA Miscellaneous Miscellaneous 12:00:00 AM ([facility]) Keppra 500MG Keppra 500MG 10/18/2018 UNIT 1 suspended Keppra RADHA Oral Tablet Oral Tablet 12:00:00 AM ([facility]) Easy Trak Easy Trak 10/18/2018 UNIT 1 suspended Easy Trak RADHA Blood Glucose Blood Glucose 12:00:00 AM Blood (Bruin Test In Vitro Test In Vitro EDT Gl ucose [facility] Strip Strip Test [facility]) Aspirin 81 MG Aspirin 81 10/18/2018 UNIT 1 suspended Miniprin RADHA Delayed Oral Tablet 12:00:00 AM (Bruin Release Oral Delayed EDT [place] [facility] Tablet Release [facility] Aspirin 81 [place]) Oral Tablet Delayed Release Alprazolam 2 Xanax 2 mg 09/28/2018 1 ORA completed Alprazolam NEXTGEN MG Oral tablet 12:00:00 AM {t L 2 MG Ora l (Saint Tablet EDT bl Tablet Twyla [Xanax] Xanax } [Xanax] Med ical 2 mg tablet [place]) I stop #[id number] quetiapine Seroquel 09/28/2018 1 ORAL completed quetiapine NEXTGEN 200 MG Oral 200 mg 12:00:00 AM {tbl} 200 MG Oral (Saint Tablet tablet EDT Tablet Twyla [Seroquel] [Seroquel] Med ical Seroquel 200 [place]) mg tablet 12 HR Ranolazine 09/27/2018 UNI 1 active Ranol azine ER RADHA ranolazine ER 500MG 12:00:00 AM T (Mount 500 MG Oral Tablet EDT Fernando Extended Extended [place] Release Oral Release 12 o od Tablet Hour Health Ranolazine ER [place] ) 500MG Oral Tablet Extended Release 12 Hour atorvastatin Atorvastati 09/27/2018 UNI 1 suspended Atorvastatin RADHA 40 MG Oral n Calcium 12:00:00 AM T Ca lcium (Mount Tablet 40MG Oral EDT Fernando Atorvastatin Tablet Neigh borh Calcium 40MG ood Oral Tablet [facility]) Janumet Janumet 09/13/2018 UNI 1 suspended Jasson umet RADHA 50-1000MG 50-1000MG 12:00:00 AM T ([facility] Oral [facility]t [facility]) Glipizide 10 glipiZIDE 09/13/2018 UNI 1 suspended glipiZIDE RADHA MG Oral 10MG Oral 12:00:00 AM T (Mount Tablet Tablet EDT [place] glipiZIDE [facility] 10MG Oral ood Tablet [facility]) Simvastatin Simvastatin 09/13/2018 UNI 1 suspended Simvastatin RADHA 20 MG Oral 20MG Oral 12:00:00 AM T (Mount Tablet Tablet EDT [place] Simvastatin Neighbor 20MG Oral ood Tablet [facility]) Macrobid Macrobid 09/13/2018 UNI 1 completed M acrobid RADHA 100MG Oral 100MG Oral 12:00:00 AM T ([facility] Capsule Capsule EDT [facility]) NovoLIN R NovoLIN R 09/13/2018 CAP completed Novolin R RADHA 100UNIT/ML IJ 100UNIT/ML 12:00:00 AM FUL ([facility] SOLN IJ SOLN EDT DOS [facility]) Medication administered onsite [facility]: [id number] Keppra 500MG Keppra 09/13/2018 UNIT 1 suspended Keppra RADHA Oral Tablet 500MG 12:00:00 AM (Bruin Oral EDT [facility]) Alprazolam 2 Xanax 2 08/31/2018 1 ORAL completed Alprazolam NEXTGEN MG Oral mg 12:00:00 AM {tb 2 MG Oral (Saint Tablet tablet EDT l} Tablet Twyla [Xanax] [Xanax] Medical Xanax 2 mg [place]) tablet I stop #[id number] quetiapine Seroquel 08/31/2018 1 ORAL completed quetiapine NEXTGEN 200 MG Oral 200 mg 12:00:00 AM {tbl} 200 MG Oral (Saint Tablet tablet EDT Tablet Twyla [Seroquel] [Seroquel] Med ical Seroquel 200 [place]) mg tablet Flonase Flonase 08/26/2018 CAP 1 completed Prashanth nase RADHA Allergy Allergy 12:00:00 AM FUL (M ount Relief Relief EDT DOS Fernando 50MCG/ACT 50MCG/ACT ING [place]ho Nasal Nasal UNI od Health Suspension Suspension T Pat [facility]) cetirizine Cetirizine 08/26/2018 UNI 1 completed Cetirizine RADHA hydrochloride HCl 10MG 12:00:00 AM T HCl (Mount 10 MG Oral Oral Tablet EDT Ve rnon Tablet [facility] Cetirizine od Health HCl 10MG Oral Center ) Tablet Guaifenesin guaiFENesin 08/26/2018 CAP completed guaiFENesin RADHA 20 MG/ML Oral 300MG/15ML 12:00:00 AM FUL (Mount Solution Oral EDT DOS Fernando guaiFENesin Solution ING Neig hborho 300MG/15ML UNI od Health Oral Solution T Center ) Janumet Janumet 08/26/2018 UNI 1 suspended Jasson umet RADHA 50-1000MG 50-1000MG 12:00:00 AM T (Mount Oral Tablet Oral Tablet EDT V ernon [facility]) Glipizide 10 glipiZIDE 08/26/2018 UNI 1 suspended glipiZIDE RADHA MG Oral 10MG Oral 12:00:00 AM T (Mount Tablet Tablet EDT Fernando glipiZIDE [facility] 10MG Oral od Health Tablet Center) Naproxen 500 Naproxen 08/26/2018 UNI 1 completed Naproxen RADHA MG Oral 500MG Oral 12:00:00 AM T (Mount Tablet Tablet EDT Fernando Naproxen [place] 500MG Oral od Health Tablet [place]) Aspirin 81 MG Aspirin 81 08/12/2018 UNI 1 suspended Miniprin RADHA Delayed Oral Tablet 12:00:00 AM T (Mount Release Oral Delayed EDT Anjel on Tablet Release [facility] Aspirin 81 od Health Oral Tablet Center) Delayed Release Keppra 500MG Keppra 08/12/2018 UNI 1 suspended Keppra RADHA Oral Tablet 500MG Oral 12:00:00 AM T (Mount Tablet EDT Fernando [facility] Health [place]) Metoprolol Metoprolol 08/12/2018 UNI 1 suspended Metoprolol RADHA Tartrate 25 Tartrate 12:00:00 AM T Ta rtrate (Mount MG Oral 25MG Oral EDT Fernando Tablet Tablet [facility] Metoprolol od Health Tartrate 25MG Center ) Oral Tablet Simvastatin Simvastatin 08/12/2018 UNI 1 suspended Simvastatin RADHA 40 MG Oral 40MG Oral 12:00:00 AM T (Mount Tablet Tablet EDT Fernando Simvastatin [place]ighbor [place] 40MG Oral od Health Tablet Center) Jassonumet Jassonumet 08/12/2018 UNI 1 suspended Jasson umet RADHA 50-1000MG 50-1000MG 12:00:00 AM T (Mount Oral Tablet Oral Tablet EDT V ernon [facility]) 24 HR glipiZIDE 08/12/2018 UNI 1 active glipiZ RODNEY ER RADHA Glipizide 10 ER 10MG 12:00:00 AM T (Mount MG Extended Oral Tablet EDT V ernon Release Oral Extended Nei ghborho Tablet Release 24 od Heal th glipiZIDE ER Hour Center) 10MG Oral Tablet Extended Release 24 Hour Neurontin Neurontin 08/12/2018 UNI 1 suspended Neurontin RADHA 300MG Oral 300MG Oral 12:00:00 AM T (Mount Capsule Capsule EDT Fernando [facility]) Omeprazole 40 Omeprazole 08/12/2018 UNI 1 suspended Omeprazole RADHA MG Delayed 40MG Oral 12:00:00 AM T (Mount Release Oral Capsule EDT Anjel on Capsule Delayed Neighborh o Omeprazole Release od Hea lth 40MG Oral Center) Capsule Delayed Release Keppra 500MG Keppra 08/12/2018 UNI 1 active Ke ppra RADHA Oral Tablet 500MG Oral 12:00:00 AM T (Mount Tablet EDT Fernando [facility]) Lisinopril 10 Lisinopril 08/12/2018 UNI 1 active Lisinopril RADHA MG Oral 10MG Oral 12:00:00 AM T (Mount Tablet Tablet EDT Fernando Lisinopril Neighborh o 10MG Oral od Health Tablet Center) Metoprolol Metoprolol 08/12/2018 UNI 1 active Metoprolol RADHA Tartrate 25 Tartrate 12:00:00 AM T Ta rtrate (Mount MG Oral 25MG Oral EDT Fernando Tablet Tablet [facility] Metoprolol od Health Tartrate 25MG [place] ) Oral Tablet Easy Trak Easy Trak 08/11/2018 UNI 1 suspended Easy Trak RADHA Blood Glucose Blood 12:00:00 AM T Blo od (Mount Test In Vitro Glucose EDT Glucose Test Fernando Strip Test In [facility] Vitro Strip od Healt h Center) Lancets Lancets 08/11/2018 UNI 1 suspended Marc cets RADHA Miscellaneous Miscellaneo 12:00:00 AM T ([facility] us EDT [facility]) Blood Glucose Blood 08/11/2018 UNI completed Blood RADHA System [facility] Glucose 12:00:00 AM T Gluc ose ([facility] Kit System [place] EDT System Korey Gaurav non Kit [facility]) Augmentin Augmentin 08/11/2018 UNI 1 completed Augmentin RADHA 875-125MG 875-125MG 12:00:00 AM T ([facility] Oral Tablet Oral Tablet EDT V ernon [facility]) quetiapine Seroquel 08/03/2018 1 ORAL completed quetiapine NEXTGEN 200 MG Oral 200 mg 12:00:00 AM {tbl} 200 MG Oral (Saint Tablet tablet EDT Tablet Twyla [Seroquel] [Seroquel] Med ical Seroquel 200 [place]) mg tablet Alprazolam 2 Xanax 2 mg 08/03/2018 1 ORAL completed Alprazolam 2 NEXTGEN MG Oral tablet 12:00:00 AM {tbl} MG Oral (Saint Tablet EDT Tablet Twyla [Xanax] Xanax [Xanax] Med ical 2 mg tablet [place]) I stop #[id number] NovoLIN R NovoLIN R 07/21/2018 CAPFUL completed Novolin RADHA 100UNIT/ML 100UNIT/ML 12:00:00 AM DOSING R (Bruin IJ SOLN IJ SOLN EDT UNIT [facility]) Medication administered onsite [id number] Metoprolol Metoprolol 07/18/2018 UNIT 1 suspended Metoprolol RADHA Tartrate 25 Tartrate 12:00:00 AM Ta rtrate (Bruin MG Oral 25MG Oral EDT [facility] Tablet Tablet Health Metoprolol [place]) Tartrate 25MG Oral Tablet Lisinopril 10 Lisinopril 07/18/2018 UNIT 1 suspended Lisinopril RADHA MG Oral 10MG Oral 12:00:00 AM (Bruin Tablet Tablet EDT [facility] d Lisinopril Health 10MG Oral [place]) Tablet Glyburide 5 glyBURIDE-Me 07/18/2018 UNIT 1 suspended glyBURIDE-me RADHA MG / tFORMIN 12:00:00 AM tFORMIN (Esther ount Fernando Metformin 5-500MG Oral EDT Ne ighborhood hydrochloride Tablet Heal th 500 MG Oral Center) Tablet glyBURIDE-Met FORMIN 5-500MG Oral Tablet Simvastatin Simvastatin 07/18/2018 UNIT 1 suspended Simvastatin RADHA 20 MG Oral 20MG Oral 12:00:00 AM (Bruin Tablet Tablet EDT [place] Simvastatin Health 20MG Oral Center) Tablet NovoLIN R NovoLIN R 07/18/2018 CAPFUL completed Novolin R RADHA 100UNIT/ML IJ 100UNIT/ML 12:00:00 AM DOSING (Bruin SOLN IJ SOLN EDT UNIT [facility]) Medication administered onsite [id number] Metformin metFORMIN 07/18/2018 UNIT 1 suspended metFORMIN RADHA hydrochloride HCl 1000MG 12:00:00 AM HCl (Bruin 1000 MG Oral Oral EDT [place] Tablet Tablet Health metFORMIN HCl [place] ) 1000MG Oral Tablet Tylenol 8 Hour Tylenol 8 07/18/2018 UNIT 1 completed Mapap RADHA Arthritis Pain Hour 12:00:00 AM (Bruin 650MG Oral Arthritis EDT [place] Tablet Pain 650MG Health Extended Oral [place]) Release Tablet Extended Release quetiapine 200 Seroquel 07/06/2018 1 ORAL completed quetiapine NEXTGEN MG Oral Tablet 200 mg 12:00:00 AM {t 2 00 MG Oral (Saint [Seroquel] tablet EDT bl Tablet Bakari hs Seroquel 200 } [Seroquel] M edical mg tablet Center) Alprazolam 2 Xanax 2 mg 07/06/2018 1 ORAL completed Alprazolam NEXTGEN MG Oral Tablet tablet 12:00:00 AM {t 2 MG Oral (Saint [Xanax] Xanax EDT bl Tablet Rob phs 2 mg tablet } [Xanax] Medic al Center) I stop #[id number] Diclofenac Voltaren 1 % 02/16/2018 active diclofenac NEXTGEN Sodium 0.01 topical gel 12:00:00 AM sodium 0.01 (Saint MG/MG Topical EST MG/MG Topic al Twyla Gel [Voltaren] Gel [[place]] Medical Voltaren 1 % Center) topical gel Folic Acid 1 Folic Acid 11/27/2016 UNIT 1 suspended Folic Acid RADHA MG Oral Tablet 1MG Oral 12:00:00 AM (Mount Folic Acid 1MG Tablet EDT Gaurav non Oral Tablet [facility] Center) Aspirin 81 MG Adult 11/27/2016 UNIT 1 suspended Miniprin RADHA Delayed Aspirin EC 12:00:00 AM (Mount Release Oral Low Strength EDT Fernando Tablet Adult 81MG Oral Ne ighborho Aspirin EC Low Tablet od Health Strength 81MG Delayed Pat ter) Oral Tablet Release Delayed Release Metoprolol Metoprolol 11/27/2016 UNIT 1 suspended Metoprolol RADHA Tartrate 25 MG Tartrate 12:00:00 AM Tartrate (Mount Oral Tablet 25MG Oral EDT Gaurav non Metoprolol Tablet [place]ho Tartrate 25MG od [facility] Oral Tablet Center) Lisinopril 10 Lisinopril 11/27/2016 UNIT 1 suspended Lisinopril RADHA MG Oral Tablet 10MG Oral 12:00:00 AM (Mount Lisinopril Tablet EDT Fernando 10MG Oral Neighborho Tablet od Health Center) Tylenol 8 Hour Tylenol 8 11/27/2016 UNIT 1 suspended Mapap RADHA Arthritis Pain Hour 12:00:00 AM (Mount 650MG Oral Arthritis EDT Anjel on Tablet Pain 650MG [place] Extended Oral Tablet od H ealth Release Extended Center) Release Simvastatin 20 Simvastatin 11/27/2016 UNIT 1 suspended Simvastatin RADHA MG Oral Tablet 20MG Oral 12:00:00 AM (Mount Simvastatin Tablet EDT Fernando 20MG Oral Neighborho Tablet od Health Center) Glyburide 5 MG GlyBURIDE-Me 11/27/2016 UNIT 1 suspended glyBURIDE-metF RADHA / Metformin tFORMIN 12:00:00 AM ORM IN (Mount hydrochloride 5-500MG Oral EDT Fernando 500 MG Oral Tablet Neighb orho Tablet od [facility] GlyBURIDE-MetF Cente r) ORMIN 5-500MG Oral Tablet Ambien 10MG Ambien 10MG 11/27/2016 UNIT suspended Ambien RADHA Oral Tablet Oral Tablet 12:00:00 AM (Mount EDT Fernando Neighbor[facility] Center) Senna 8.6MG Senna 8.6MG 11/27/2016 UNIT 1 suspended Senna RADHA Oral Tablet Oral Tablet 12:00:00 AM (Mount EDT Fernando Neighborho [facility]) Omeprazole 40 Omeprazole 11/27/2016 UNIT 1 suspended Omeprazole RADHA MG Delayed 40MG Oral 12:00:00 AM (Mount Release Oral Capsule EDT Anjel on Capsule Delayed Neighborh o Omeprazole Release od Hea lth 40MG Oral Center) Capsule Delayed Release Tamsulosin Flomax 0.4 08/31/2013 1. ORAL active tamsulosin NEXTGEN hydrochloride mg capsule 12:00:00 AM 00 hydrochloride (Saint 0.4 MG Oral EDT {c 0.4 MG Oral J osephs Capsule ap Capsule Medical [Flomax] mason [Flomax] Center) Flomax 0.4 mg le capsule } Omeprazole 40 omeprazole 08/31/2013 1 ORAL active take 1 capsule NEXTGEN MG Delayed 40 mg 12:00:00 AM {c (40MG) by (Saint Release Oral capsule,eugenio EDT ap oral route Twyla Capsule yed release mason every morn ing Medical omeprazole 40 le before a me al Center) mg } capsule,delaye d release Phenytoin phenytoin 08/31/2013 1. ORAL active ta ke 1 capsule NEXTGEN sodium 100 MG sodium 12:00:00 AM 00 (1 00MG) by (Saint Extended extended 100 EDT {c oral rou te 3 Twyla Release Oral mg capsule ap times every Medical Capsule [facility]ason day Center) phenytoin le sodium } extended 100 mg capsule Metoprolol metoprolol 08/31/2013 1. ORAL active take 1 tablet NEXTGEN Tartrate 25 MG tartrate 25 12:00:00 AM 00 (25MG) by (Saint Oral Tablet mg tablet EDT {t oral rou te 2 Twyla metoprolol ab times every Me dical tartrate 25 mg le day Cente r) tablet t} Glyburide 5 MG Glucovance 5 08/31/2013 active glyburide 5 MG NEXTGEN / Metformin mg-500 mg 12:00:00 AM / metformin (Saint hydrochloride tablet EDT hydrochlo ride Twyla 500 MG Oral 500 MG Oral M edical Tablet Tablet Center) [Glucovance] [Glucovance] Glucovance 5 mg-500 mg tablet Alprazolam 2 Xanax 2 mg 08/24/2013 1 ORAL completed Alprazolam 2 NEXTGEN MG Oral Tablet tablet 12:00:00 AM {t M G Oral Tablet (Saint [Xanax] Xanax EDT bl [Xanax] Mihir ephs 2 mg tablet } Medical [place]) Naproxen 500 Naproxen 07/24/2013 UNIT suspended Naproxen RADHA MG Oral Tablet 500MG OR 12:00:00 AM ([facility] Naproxen 500MG TABS EDT Verno n OR TABS [facility]) Lac-Hydrin 12% Lac-Hydrin 06/21/2013 APPL 1 completed Brenda-Hydrolac RADHA EX LOTN 12% EX LOTN 12:00:00 AM ICAT [facility] Zithromax Zithromax 06/05/2013 UNIT completed Zithromax RADHA 250MG OR TABS 250MG OR 12:00:00 AM ([facility] TABS EST [facility]) Flonase Flonase 02/02/2013 CAPF 1 suspended Prashanth nase RADHA 50MCG/ACT NA 50MCG/ACT NA 12:00:00 AM UL ([facility] SUSP [facility]USP [facility] Clarithromycin Clarithromyc 02/02/2013 UNIT 1 suspended Clarithromycin RADHA 500 MG Oral in 500MG OR 12:00:00 AM ([facility] Tablet TABS EDT Fernando Clarithromycin [facility] 500MG OR TABS od [facility] Center) Claritin 10MG Claritin 02/02/2013 UNIT 1 suspended Wal-itin RADHA OR TABS 10MG OR TABS 12:00:00 AM ([facility]) Glucovance Glucovance 09/01/2012 UNIT 1 suspended Glucovance RADHA 5-500MG OR 5-500MG OR 12:00:00 AM ([facility] TABS TABS [facility]) Benicar HCT Benicar HCT 09/01/2012 UNIT 1 suspended Benicar HCT RADHA 40-12.5MG OR 40-12.5MG OR 12:00:00 AM ([facility] TABS TABS [facility]) Metoprolol Metoprolol 09/01/2012 UNIT 1 suspended Metoprolol RADHA Tartrate 25 MG Tartrate 12:00:00 AM Tartrate (Mount Oral Tablet 25MG OR TABS EDT Fernando Metoprolol [facility] o Tartrate 25MG od [facility] OR TABS Center) Dilantin 100MG Dilantin 09/01/2012 UNIT 1 suspended Dilantin RADHA OR CAPS 100MG OR 12:00:00 AM ( [facility] CAPS EDT [facility]) Benicar HCT Benicar HCT 12/22/2011 UNIT 1 suspended Benicar HCT RADHA 40-12.5MG OR 40-12.5MG OR 12:00:00 AM ([facility] TABS TABS EDT [facility]) Metoprolol Metoprolol 12/22/2011 UNIT 1 suspended Metoprolol RADHA Tartrate 25 MG Tartrate 12:00:00 AM Tartrate ([facility] Oral Tablet 25MG OR TABS EDT Fernando Metoprolol Neighborh o Tartrate 25MG od [facility] OR TABS [place]) Glucovance Glucovance 11/25/2011 UNIT 1 suspended Glucovance RADHA 5-500MG OR 5-500MG OR 12:00:00 AM ([facility] TABS TABS EDT [facility]) Dilantin 100MG Dilantin 11/09/2011 UNIT 1 suspended Dilantin RADHA OR CAPS 100MG OR 12:00:00 AM ( [facility] CAPS EDT [facility]) Benicar HCT Benicar HCT 11/09/2011 UNIT 1 suspended Benicar HCT RADHA 40-12.5MG OR 40-12.5MG OR 12:00:00 AM ([facility] TABS TABS [facility]) Glucovance Glucovance 11/09/2011 UNIT 1 suspended Glucovance RADHA 5-500MG OR 5-500MG OR 12:00:00 AM ([facility] TABS TABS T [facility]) Metoprolol Metoprolol 11/09/2011 UNIT 1 suspended Metoprolol RADHA Tartrate 25 MG Tartrate 12:00:00 AM Tartrate ([facility] Oral Tablet 25MG OR TABS EDT [place] Metoprolol Neighbor[facility] o Tartrate 25MG od [facility] OR TABS Center) Ecotrin Low Ecotrin Low 11/09/2011 UNIT 1 suspended Miniprin RADHA Strength 81 MG Strength 81 12:00:00 AM [facility] SEROquel 50MG SEROquel 11/09/2011 UNIT 1 suspended Seroquel RADHA OR TABS 50MG OR TABS 12:00:00 AM ([facility]) Flomax 0.4MG Flomax 0.4MG 11/09/2011 UNIT 1 suspended Flomax RADHA OR CAPS OR CAPS 12:00:00 AM ([facility]) Dilantin 100MG Dilantin 11/09/2011 UNIT 1 suspended Dilantin RADHA OR CAPS 100MG OR 12:00:00 AM ( [facility] CAPS [facility]) NexIUM 40MG OR NexIUM 40MG 11/09/2011 UNIT 1 suspended Nexium RADHA CPDR OR CPDR 12:00:00 AM ([facility]) Ecotrin Low Ecotrin Low 11/09/2011 UNIT 1 suspended Miniprin RADHA Strength 81 MG Strength 81 12:00:00 AM ([facility] TBEC MG TBEC [facility]) Metoprolol Metoprolol 11/09/2011 UNIT 1 suspended Metoprolol RADHA Tartrate 25 MG Tartrate 12:00:00 AM Tartrate ([facility] Oral Tablet 25MG OR TABS [facility] OR TABS [place]) Glucovance Glucovance 11/09/2011 UNIT 1 suspended Glucovance RADHA 5-500MG OR 5-500MG OR 12:00:00 AM ([facility] TABS TABS [facility]) Benicar HCT Benicar HCT 11/09/2011 UNIT 1 suspended Benicar HCT RADHA 40-12.5MG OR 40-12.5MG OR 12:00:00 AM ([facility] TABS TABS [facility]) Alprazolam 2 ALPRAZolam 2 1 completed [facility] Oral Tablet mg TabletTwyla ALPRAZolam 2 Ordered By: Medical mg Tablet, Isaiah Hawley Ordered By: Isaiah Portillo MDDirections MDDirections: : 1 tablet 1 tablet oral oral twice a twice a day day PRN PRN anxiety anxiety quetiapine 200 QUEtiapine 1 completed [facility] Oral Tablet 200 mg Mihir ephs QUEtiapine 200 Tablet, [place] dical mg Tablet, Ordered By: Adrianna ntpepe Ordered By: Isaiah Isaiah Darer, Darer, MDDirections: MDDirections 1 tablet oral : 1 tablet daily at oral daily bedtime at bedtime Insurance Providers Payer name Policy type / Policy ID Covered Covered Policy Plan Coverage type alliance party ID alliance party's Patel Inform ation relationship to patel JEFFERY HMO [id number] MEDICARE OP W [id number] [place] Individual 0 Self 0 [place] Individual 0 Self 0 [place] MEDICAID [id number] SP [id number] JEFFERY MEDICARE [id number] SP [id number] PLAN [place] Individual 0 Self 0 [place] Policy [place] Care New Individual 0 Self 0 [place] Policy [place] Care [place] Individual 0 Self 0 [place] Policy [place] Care [place] Individual 0 Self 0 [place] Policy [place] Care New Individual 0 Self 0 [place] Policy [place] Care New Individual 0 Self 0 [place] Policy [place] Care New Individual 0 Self 0 [place] Policy [place] Care New Individual 0 Self 0 [place] Policy [place] Care New Individual 0 Self 0 [place] Policy [place] Care New Individual 0 Self 0 [place] Policy [place] Care New Individual 0 Self 0 [place] Policy Jeffery Care New Individual 0 Self 0 [place] Policy Jeffery Care New Individual 0 Self 0 [place] Policy [place] Care New Individual 0 Self 0 [place] Policy [place] Care New Individual 0 Self 0 [place] Policy [place] Care New Individual 0 Self 0 [place] Policy Jeffery Care New Individual 0 Self 0 [place] Policy [place] Care New Individual 0 Self 0 [place] Policy Jeffery Care New Individual 0 Self 0 [place] Policy [place] Care New Individual 0 Self 0 [place] Policy Jeffery Care New Individual 0 Self 0 [place] Policy [place] Care New Individual 0 Self 0 [place] Policy JEFFERY O [id number] MEDICARE OP [place] Care New Individual 0 Self 0 [place] Policy [place] Care New Individual 0 Self 0 [place] Policy Jeffery Care New Individual 0 Self 0 [place] Policy Jeffery Care New Individual 0 Self 0 [place] Policy Jeffery Care New Individual 0 Self 0 [place] Policy [place] Care New Individual 0 Self 0 [place] Policy Jeffery Care New Individual 0 Self 0 [place] Policy CARMELITA MEDICARE [id number] [place] Care New Individual 0 Self 0 [place] Policy [place] Care [place] Individual 0 Self 0 [place] Policy Jeffery Care New Individual 0 Self 0 [place] Policy Jeffery Care New Individual 0 Self 0 [place] Policy [place] Care New Individual 0 Self 0 [place] Policy Jeffery Care New Individual 0 Self 0 [place] Policy Jeffery Care New Individual 0 Self 0 [place] Policy Jeffery Care New Individual 0 Self 0 [place] Policy Jeffery Care New Individual 0 Self 0 [place] Policy Jeffery Care New Individual 0 Self 0 [place] Policy Jeffery Care New Individual 0 Self 0 [place] Policy [place] Care New Individual 0 Self 0 [place] Policy [place] Care New Individual 0 Self 0 [place] Policy [place] Care New Individual 0 Self 0 [place] Policy Jeffery Care New Individual 0 Self 0 [place] Policy [place] Care New Individual 0 Self 0 [place] Policy Jeffery Care New Individual 0 Self 0 [place] Policy Jeffery Care New Individual 0 Self 0 [place] Policy Jeffery Care New Individual 0 Self 0 [place] Policy [place] Care New Individual 0 Self 0 [place] Policy MEDICAID [id number] [place] Care New Individual 0 Self 0 [place] Policy [place] Care New Individual 0 Self 0 [place] Policy Jeffery Care New Individual 0 Self 0 [place] Policy Jeffery Care New Individual 0 Self 0 [place] Policy [place] Care New Individual 0 Self 0 [place] Policy [id number] M Medicare-Blue [id number] S [id number] Cross/Blue Shield Dental [id number] S [id number] DentaQuest MCRE MNGD Care [place] Vision [id number] S [id number] MCRE MNGD Care Dental [id number] S [id number] Dentaquest MKD Medicare [place] [id number] S [id number] Government Services Medicaid 4011 MH [id number] S [id number] Psychotherapy Only Medicaid 4011 MH [id number] S [id number] Psychotherapy Only Medicaid 4013 [id number] S [id number] Regular Clinic Visit Medicaid 4013 [id number] S [id number] Regular Clinic Visit Jeffery Medicare [id number] S [id number] Problems, Conditions, and Diagnoses Code Display Name Description Problem Effective Data Type Dates Source(s) 54443246 Polyneuropathy Polyneuropathy Problem 05/20/2019 [place] (disorder) 12:00:00 ([facility]) [id number] Depressive disorder Depression Problem 05/20/[address] (disorder) 12:00:00 ([facility]) [id number] Polyneuropathy Polyneuropathy Problem 05/20/2019 [place] (disorder) 12:00:00 ([facility]) [id number] Depressive disorder Depression Problem 05/20/[address] (disorder) 12:00:00 ([facility]) [id number] Polyneuropathy Polyneuropathy Problem 05/20/2019 [place] (disorder) 12:00:00 ([facility]) [id number] Depressive disorder Depression Problem 05/20/[address] (disorder) 12:00:00 ([facility]) [id number] Polyneuropathy Polyneuropathy Problem 05/20/2019 [place] (disorder) 12:00:00 ([facility]) [id number] Depressive disorder Depression Problem 05/20/[address] (disorder) 12:00:00 ([facility]) [id number] Polyneuropathy Polyneuropathy Problem 05/20/2019 [place] (disorder) 12:00:00 ([facility]) [id number] Depressive disorder Depression Problem 05/20/[address] (disorder) 12:00:00 ([facility]) 06398206 Polyneuropathy Polyneuropathy Problem 05/20/2019 [place] (disorder) 12:00:00 ([facility]) [id number] Depressive disorder Depression Problem 05/20/[address] (disorder) 12:00:00 ([facility]) 65808945 Polyneuropathy Polyneuropathy Problem 05/20/2019 [place] (disorder) 12:00:00 ([facility]) [id number] Depressive disorder Depression Problem 05/20/[address] (disorder) 12:00:00 ([facility]) 37634883 Polyneuropathy Polyneuropathy Problem 05/20/2019 [place] (disorder) 12:00:00 ([facility]) [id number] Depressive disorder Depression Problem 05/20/[address] (disorder) 12:00:00 ([facility]) 42508016 Polyneuropathy Polyneuropathy Problem 05/20/2019 [place] (disorder) 12:00:00 ([facility]) 92549136 Depressive disorder Depression Problem 05/20/[address] (disorder) 12:00:00 ([facility]) 99341885 Polyneuropathy Polyneuropathy Problem 05/20/2019 [place] (disorder) 12:00:00 ([facility]) 04075036 Depressive disorder Depression Problem 05/20/[address] (disorder) 12:00:00 ([facility]) 05622137 Polyneuropathy Polyneuropathy Problem 05/20/2019 [place] (disorder) 12:00:00 ([facility]) 93043857 Depressive disorder Depression Problem 05/20/[address] (disorder) 12:00:00 ([facility]) 47105740 Polyneuropathy Polyneuropathy Problem 05/20/2019 [place] (disorder) 12:00:00 ([facility]) 62751333 Depressive disorder Depression Problem 05/20/[address] (disorder) 12:00:00 ([facility]) 65094645 Polyneuropathy Polyneuropathy Problem 05/20/2019 [place] (disorder) 12:00:00 ([facility]) [id number] Depressive disorder Depression Problem 05/20/[address] (disorder) 12:00:00 ([facility]) 64999638 Polyneuropathy Polyneuropathy Problem 05/20/2019 [place] (disorder) 12:00:00 ([facility]) [id number] Depressive disorder Depression Problem 05/20/[address] (disorder) 12:00:00 ([facility]) 44370330 Polyneuropathy Polyneuropathy Problem 05/20/2019 [place] (disorder) 12:00:00 ([facility]) 86451529 Depressive disorder Depression Problem 05/20/[address] (disorder) 12:00:00 ([facility]) 18318224 Polyneuropathy Polyneuropathy Problem 05/20/2019 [place] (disorder) 12:00:00 ([facility]) [id number] Depressive disorder Depression Problem 05/20/[address] (disorder) 12:00:00 ([facility]) 88401928 Polyneuropathy Polyneuropathy Problem 05/20/2019 [place] (disorder) 12:00:00 ([facility]) 57409398 Depressive disorder Depression Problem 05/20/[address] (disorder) 12:00:00 ([facility]) [id number] Polyneuropathy Polyneuropathy Problem 05/20/2019 [place] (disorder) 12:00:00 ([facility]) [id number] Depressive disorder Depression Problem 05/20/[address] (disorder) 12:00:00 ([facility]) 52297149 Polyneuropathy Polyneuropathy Problem 05/20/2019 [place] (disorder) 12:00:00 ([facility]) [id number] Depressive disorder Depression Problem 05/20/[address] (disorder) 12:00:00 ([facility]) [id number] Polyneuropathy Polyneuropathy Problem 05/20/2019 [place] (disorder) 12:00:00 ([facility]) [id number] Depressive disorder Depression Problem 05/20/[address] (disorder) 12:00:00 ([facility]) [id number] Polyneuropathy Polyneuropathy Problem 05/20/2019 [place] (disorder) 12:00:00 ([facility]) [id number] Depressive disorder Depression Problem 05/20/[address] (disorder) 12:00:00 ([facility]) 01725052 Polyneuropathy Polyneuropathy Problem 05/20/2019 [place] (disorder) 12:00:00 ([facility]) [id number] Depressive disorder Depression Problem 05/20/[address] (disorder) 12:00:00 ([facility]) [id number] Polyneuropathy Polyneuropathy Problem 05/20/2019 [place] (disorder) 12:00:00 ([facility]) [id number] Depressive disorder Depression Problem 05/20/[address] (disorder) 12:00:00 ([facility]) 01647121 Polyneuropathy Polyneuropathy Problem 05/20/2019 [place] (disorder) 12:00:00 ([facility]) [id number] Depressive disorder Depression Problem 05/20/[address] (disorder) 12:00:00 ([facility]) 77783615 Hypercholesterolemia Hypercholesterolemia Problem 02/01 RADHA (disorder) 12:00:00 ([facility]) 43329209 Hypercholesterolemia Hypercholesterolemia Problem 02/01 RADHA (disorder) 12:00:00 ([facility]) 21018021 Hypercholesterolemia Hypercholesterolemia Problem 02/01 RADHA (disorder) 12:00:00 ([facility]) 78223869 Hypercholesterolemia Hypercholesterolemia Problem 02/01 RADHA (disorder) 12:00:00 ([facility]) 99660078 Hypercholesterolemia Hypercholesterolemia Problem 02/01 RADHA (disorder) 12:00:00 ([facility]) 11256385 Hypercholesterolemia Hypercholesterolemia Problem 02/01 RADHA (disorder) 12:00:00 ([facility]) 95912038 Hypercholesterolemia Hypercholesterolemia Problem 02/01 RADHA (disorder) 12:00:00 ([facility]) 93504775 Hypercholesterolemia Hypercholesterolemia Problem 02/01 RADHA (disorder) 12:00:00 ([facility]) 61097773 Hypercholesterolemia Hypercholesterolemia Problem 02/01 RADHA (disorder) 12:00:00 ([facility]) 01504461 Hypercholesterolemia Hypercholesterolemia Problem 02/01 RADHA (disorder) 12:00:00 ([facility]) 86007744 Hypercholesterolemia Hypercholesterolemia Problem 02/01 RADHA (disorder) 12:00:00 ([facility]) 33894644 Hypercholesterolemia Hypercholesterolemia Problem 02/01 RADHA (disorder) 12:00:00 ([facility]) [id number] Hypercholesterolemia Hypercholesterolemia Problem 02/01 RADHA (disorder) 12:00:00 ([facility]) 88853632 Hypercholesterolemia Hypercholesterolemia Problem 02/01 RADHA (disorder) 12:00:00 ([facility]) [id number] Hypercholesterolemia Hypercholesterolemia Problem 02/01 RADHA (disorder) 12:00:00 ([facility]) 03030396 Hypercholesterolemia Hypercholesterolemia Problem 02/01 RADHA (disorder) 12:00:00 ([facility]) 76792479 Hypercholesterolemia Hypercholesterolemia Problem 02/01 RADHA (disorder) 12:00:00 ([facility]) [id number] Hypercholesterolemia Hypercholesterolemia Problem 02/01 RADHA (disorder) 12:00:00 ([facility]) 21500310 Hypercholesterolemia Hypercholesterolemia Problem 02/01 RADHA (disorder) 12:00:00 ([facility]) 13679214 Hypercholesterolemia Hypercholesterolemia Problem 02/01 RADHA (disorder) 12:00:00 ([facility]) 34770787 Hypercholesterolemia Hypercholesterolemia Problem 02/01 RADHA (disorder) 12:00:00 ([facility]) 08157109 Hypercholesterolemia Hypercholesterolemia Problem 02/01 RADHA (disorder) 12:00:00 ([facility]) 53548256 Hypercholesterolemia Hypercholesterolemia Problem 02/01 RADHA (disorder) 12:00:00 ([facility]) 99122927 Hypercholesterolemia Hypercholesterolemia Problem 02/01 RADHA (disorder) 12:00:00 ([facility]) 05777687 Hypercholesterolemia Hypercholesterolemia Problem 02/01 RADHA (disorder) 12:00:00 ([facility]) 46427871 Hypercholesterolemia Hypercholesterolemia Problem 02/01 RADHA (disorder) 12:00:00 ([facility]) 30641602 Hypercholesterolemia Hypercholesterolemia Problem 02/01 RADHA (disorder) 12:00:00 ([facility]) 69653924 Hypercholesterolemia Hypercholesterolemia Problem 02/01 RADHA (disorder) 12:00:00 ([facility]) [id number] Low back pain Lumbago Finding 2018 RADHA (finding) 12:00:00 ([facility]) [id number] Low back pain Lumbago Finding 2018 RADHA (finding) 12:00:00 ([facility]) [id number] Low back pain Lumbago Finding 2018 RADHA (finding) 12:00:00 ([facility]) [id number] Low back pain Lumbago Finding 2018 RADHA (finding) 12:00:00 ([facility]) [id number] Low back pain Lumbago Finding 2018 RADHA (finding) 12:00:00 ([facility]) [id number] Low back pain Lumbago Finding 2018 RADHA (finding) 12:00:00 ([facility]) [id number] Low back pain Lumbago Finding 2018 RADHA (finding) 12:00:00 ([facility]) [id number] Low back pain Lumbago Finding 2018 RADHA (finding) 12:00:00 ([facility]) [id number] Low back pain Lumbago Finding 2018 RADHA (finding) 12:00:00 ([facility]) [id number] Low back pain Lumbago Finding 2018 RADHA (finding) 12:00:00 ([facility]) [id number] Low back pain Lumbago Finding 2018 RADHA (finding) 12:00:00 ([facility]) [id number] Low back pain Lumbago Finding 2018 RADHA (finding) 12:00:00 ([facility]) [id number] Low back pain Lumbago Finding 2018 RADHA (finding) 12:00:00 ([facility]) [id number] Low back pain Lumbago Finding 2018 RADHA (finding) 12:00:00 ([facility]) [id number] Low back pain Lumbago Finding 2018 RADHA (finding) 12:00:00 ([facility]) [id number] Low back pain Lumbago Finding 2018 RADHA (finding) 12:00:00 ([facility]) [id number] Low back pain Lumbago Finding 2018 RADHA (finding) 12:00:00 ([facility]) [id number] Low back pain Lumbago Finding 2018 RADHA (finding) 12:00:00 ([facility]) [id number] Low back pain Lumbago Finding 2018 RADHA (finding) 12:00:00 ([facility]) [id number] Low back pain Lumbago Finding 2018 RADHA (finding) 12:00:00 ([facility]) [id number] Low back pain Lumbago Finding 2018 RADHA (finding) 12:00:00 ([facility]) [id number] Low back pain Lumbago Finding 2018 RADHA (finding) 12:00:00 ([facility]) [id number] Low back pain Lumbago Finding 2018 RADHA (finding) 12:00:00 ([facility]) [id number] Low back pain Lumbago Finding 2018 RADHA (finding) 12:00:00 ([facility]) [id number] Low back pain Lumbago Finding 2018 RADHA (finding) 12:00:00 ([facility]) [id number] Low back pain Lumbago Finding 2018 RADHA (finding) 12:00:00 ([facility]) [id number] Low back pain Lumbago Finding 2018 RADHA (finding) 12:00:00 ([facility]) [id number] Low back pain Lumbago Finding 2018 RADHA (finding) 12:00:00 ([facility]) [id number] Low back pain Lumbago Finding 2018 RADHA (finding) 12:00:00 ([facility]) [id number] Low back pain Lumbago Finding 2018 RADHA (finding) 12:00:00 ([facility]) [id number] Low back pain Lumbago Finding 2018 RADHA (finding) 12:00:00 ([facility]) [id number] Low back pain Lumbago Finding 2018 RADHA (finding) 12:00:00 ([facility]) [id number] Low back pain Lumbago Finding 2018 RAD[facility] (finding) 12:00:00 ([facility]) [id number] Low back pain Lumbago Finding 2018 RAD[facility] (finding) 12:00:00 ([facility]) [id number] Low back pain Lumbago Finding 2018 RADHA (finding) 12:00:00 ([facility]) [id number] Gastroesophageal Gastroesophageal Problem 06/22/2013 NE XTGEN reflux disease reflux disease 12:00:00 ([facility]) [id number] Insomnia Insomnia Problem 06/22/2013 NEXTGEN 12:00:00 ([facility]) 04872728 Epilepsy Epilepsy Problem 06/22/2013 NEXTGEN 12:00:00 ([facility]) [id number] Benign essential Benign essential Problem 06/22/2013 NE XTGEN hypertension hypertension 12:00:00 ([facility]) 79035530 Epilepsy (disorder) Epilepsy 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 12:00:00 ([facility]) 3274419 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 Myocardial 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 GREE NWAY infarction (disorder) Infarction 12:00:00 ([facility]) [id number] Benign prostatic Benign Prostatic 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 [place] EENWAY hyperplasia Hypertrophy 12:00:[place] [facility]) 32116826 Essential Essential 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 RAD[facility] hypertension Hypertension 12:00:00 ([place] [facility]) 18762099 Diabetes mellitus Diabetes Mellitus 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 [facility] (disorder) 12:00:00 ([place] [facility]) 68455343 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 12:00:00 ([place] [facility]) 86698841 Epilepsy (disorder) Epilepsy 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 12:00:00 ([facility]) 4019106 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 Myocardial 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 GREE NWAY infarction (disorder) Infarction 12:00:00 [facility] [id number] Benign prostatic Benign Prostatic 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 [place] EENWAY hyperplasia Hypertrophy 12:00:00 ([place] [facility]) 86953930 Essential Essential 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 RAD[facility] hypertension Hypertension 12:00:00 ([place] [facility]) 38823584 Diabetes mellitus Diabetes Mellitus 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 [facility] (disorder) 12:00:00 ([place] [facility]) 44601621 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 Disease 12:00:00 ([place] (disorder) [facility]) 36800339 Epilepsy (disorder) Epilepsy 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 12:00:00 ([facility]) 6319457 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 Myocardial 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 [place] NW[place] infarction (disorder) Infarction 12:00:00 ([place] [facility]) [id number] Benign prostatic Benign Prostatic 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 [place] EEN[place] hyperplasia Hypertrophy 12:00:00 ([place] [facility]) [id number] Essential Essential 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 RAD[facility] hypertension Hypertension 12:00:00 ([place] [facility]) 03978292 Diabetes mellitus Diabetes Mellitus 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 RAD[facility] (disorder) 12:00:00 ([place] [facility]) 44830420 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 12:00:00 ([place] (disorder) [facility]) 19712640 Epilepsy (disorder) Epilepsy 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 12:00:00 ([facility]) 2189725 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 Myocardial 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 [place] infarction (disorder) Infarction 12:00:00 [facility] [id number] Benign prostatic Benign Prostatic 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 [place] E[place] hyperplasia Hypertrophy 12:00:00 ([place] [facility]) [id number] Essential Essential 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 [facility] hypertension Hypertension 12:00:00 ([place] [facility]) 24161106 Diabetes mellitus Diabetes Mellitus 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 [facility] (disorder) 12:00:00 ([place] [facility]) 07398489 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 12:00:00 ([place] (disorder) [facility]) 74756777 Epilepsy (disorder) Epilepsy 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 [facility]:00:00 [facility] 0954726 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 Myocardial 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 [place] infarction (disorder) Infarction 12:00:00 ([place] [facility]) [id number] Benign prostatic Benign Prostatic 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 [place] hyperplasia Hypertrophy 12:00:00 ([place] [facility]) 46455636 Essential Essential 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 [facility] hypertension Hypertension 12:00:00 ([place] [facility]) 00410988 Diabetes mellitus Diabetes Mellitus 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 [facility] (disorder) 12:00:00 ([place] [facility]) 34716197 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 12:00:00 ([place]) [facility]) 33645324 Epilepsy (disorder) Epilepsy 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 [facility]:00[facility]00 [facility] 2929078 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 Myocardial 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 [place] infarction (disorder) Infarction 12:00:00 ([facility]) [id number] Benign prostatic Benign Prostatic 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 [place] hyperplasia Hypertrophy 12:00:00 ([place] [facility]) [id number] Essential Essential 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 [place] hypertension Hypertension 12:00:00 ([place]order[place] [facility]) [id number] Diabetes mellitus Diabetes Mellitus 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 [facility]) [facility] [id number] 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 12:00:00 ([place] (dis[place]) [facility]) [id number] Epilepsy (disorder) Epilepsy 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 12:00:00 [facility] [id number] 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 Myocardial 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 [place] infarction (disorder) Infarction 12:00:00 ([facility]) [id number] Benign prostatic Benign Prostatic 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 [place] hyperplasia Hypertrophy 12:00:00 ([place]) [facility]) [id number] Essential Essential 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 [place] hypertension Hypertension 12:00:00 ([place] [facility]) [id number] Diabetes mellitus Diabetes Mellitus 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 [place] (disorder) 12:00:00 [facility] [id number] 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 12:00:00 ([place]disorder) [facility]) [id number] Epilepsy (disorder) Epilepsy 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 12:00:00 [facility] [id number] 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 Myocardial 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 [place] infarction (disorder) Infarction 12:00:00 ([place] [facility]) [id number] Benign prostatic Benign Prostatic 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 [place] hyperplasia Hypertrophy 12:00:00 ([place] [facility]) [id number] Essential Essential 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 [place] hypertension Hypertension 12:00:00 ([place]order[place] [facility]) 77240186 Diabetes mellitus Diabetes Mellitus 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 [place] (disorder) 12:00:00 ([place] [facility]) [id number] 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 12:00:00 ([place]order) [facility]) 47315668 Epilepsy (disorder) Epilepsy 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 12:00:00 ([facility]) [id number] 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 Myocardial 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 [place] infarction (disorder) Infarction 12:00:00 ([facility] [id number] Benign prostatic Benign Prostatic 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 [place] hyperplasia Hypertrophy 12:00:00 ([place] [facility]) [id number] Essential Essential 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 [place] hypertension Hypertension 12:00:00 ([place]disorder[place] [facility]) 71924135 Diabetes mellitus Diabetes Mellitus 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 [place] (disorder) 12:00:00 [facility] [id number] 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 Disease 12:00:00 ([place]disorder) [facility]) 87281072 Epilepsy (disorder) Epilepsy 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 12:00:00 [facility] 4437458 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 Myocardial 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 [place] infarction (disorder) Infarction 12:00:00 ([facility] [place] [facility]) [id number] Benign prostatic Benign Prostatic 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 [place] hyperplasia Hypertrophy 12:00:00 ([place] [facility]) [id number] Essential Essential 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 [place] hypertension Hypertension 12:00:00 ([place]disorder) [facility]) [id number] Diabetes mellitus Diabetes Mellitus 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 [place] (disorder) 12:00:00 ([place] [facility]) [id number] 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 12:00:00 ([place]order) [facility]) [id number] Epilepsy (disorder) Epilepsy 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 12:00:00 [facility] 4362439 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 Myocardial 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 [place] infarction (disorder) Infarction 12:00:00 ([facility] [place] [facility]) [id number] Benign prostatic Benign Prostatic 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 [place] hyperplasia Hypertrophy 12:00:00 ([place]order[place] [facility]) [id number] Essential Essential 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 [place] hypertension Hypertension 12:00:00 ([place]disorder[place] [facility]) 54655749 Diabetes mellitus Diabetes Mellitus 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 [facility] (disorder) 12:00:00 [facility] [id number] 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 12:00:00 ([place]order) [facility]) 82457725 Epilepsy (disorder) Epilepsy 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 12:00:00 [facility] 7075457 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 Myocardial 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 [place] infarction (disorder) Infarction 12:00:00 ([place] [facility]) [id number] Benign prostatic Benign Prostatic 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 [place] hyperplasia Hypertrophy 12:00:00 ([place]order[place] [facility]) [id number] Essential Essential 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 [place] hypertension Hypertension 12:00:00 ([place]disorder) [facility]) 66925210 Diabetes mellitus Diabetes Mellitus 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 [place] (disorder) 12:00:00 ([place] [facility]) [id number] 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 12:00:00 ([place]disorder) [facility]) 51444016 Epilepsy (disorder) Epilepsy 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 12:00:00 [facility] [id number] 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 Myocardial 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 [place] infarction (disorder) Infarction 12:00:00 ([facility]) [id number] Benign prostatic Benign Prostatic 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 [place] hyperplasia Hypertrophy 12:00:00 ([place] [facility]) [id number] Essential Essential 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 [place] hypertension Hypertension 12:00:00 ([place]disorder[place] [facility]) 25030705 Diabetes mellitus Diabetes Mellitus 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 [place] (disorder) 12:00:00 [facility] [id number] 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 12:00:00 ([place]disorder) [facility]) [id number] Epilepsy (disorder) Epilepsy 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 12:00:00 [facility] [id number] 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 Myocardial 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 [place] infarction (disorder) Infarction 12:00:00 ([facility]) [id number] Benign prostatic Benign Prostatic 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 [place] hyperplasia Hypertrophy 12:00:00 ([place]order) [facility]) [id number] Essential Essential 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 [place] hypertension Hypertension 12:00:00 ([place]disorder[place] [facility]) 50281659 Diabetes mellitus Diabetes Mellitus 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 [place] (disorder) 12:00:00 ([place] [facility]) 14752542 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 12:00:00 ([place]order) [facility]) 75623237 Epilepsy (disorder) Epilepsy 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 12:00:00 [facility] 2790557 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 Myocardial 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 [place] infarction (disorder) Infarction 12:00:00 ([facility]) [id number] Benign prostatic Benign Prostatic 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 [place] hyperplasia Hypertrophy 12:00:00 ([place]) [facility]) [id number] Essential Essential 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 [place] hypertension Hypertension 12:00:00 ([place]disorder) [facility]) 84215625 Diabetes mellitus Diabetes Mellitus 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 [place] (disorder) 12:00:00 [facility] [id number] 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 Disease 12:00:00 ([place]disorder) [facility]) [id number] Epilepsy (disorder) Epilepsy 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 12:00:00 ([facility]) [id number] 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 Myocardial 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 [place] infarction (disorder) Infarction 12:00:00 ([facility]) [id number] Benign prostatic Benign Prostatic 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 [place] hyperplasia Hypertrophy 12:00:00 ([place]order) [facility]) [id number] Essential Essential 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 [place] hypertension Hypertension 12:00:00 ([place]disorder) [facility]) 03141708 Diabetes mellitus Diabetes Mellitus 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 [place] (disorder) 12:00:00 ([place] [facility]) [id number] 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 Disease 12:00:00 ([place]disorder) [facility]) 85766366 Epilepsy (disorder) Epilepsy 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 12:00:00 ([facility]) 4520561 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 Myocardial 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 [place] infarction (disorder) Infarction 12:00:00 ([facility]) [id number] Benign prostatic Benign Prostatic 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 [place] hyperplasia Hypertrophy 12:00:00 ([place]) [facility]) [id number] Essential Essential 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 [place] hypertension Hypertension 12:00:00 ([place]disorder) [facility]) 72070537 Diabetes mellitus Diabetes Mellitus 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 [place] (disorder) 12:00:00 ([place] [facility]) [id number] 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 12:00:00 ([place]order) [facility]) 47641832 Epilepsy (disorder) Epilepsy 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 12:00:00 ([facility] 4807543 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 Myocardial 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 [place] infarction (disorder) Infarction 12:00:00 ([facility] [id number] Benign prostatic Benign Prostatic 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 [place] hyperplasia Hypertrophy 12:00:00 ([place]) [facility]) [id number] Essential Essential 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 [place] hypertension Hypertension 12:00:00 ([place]disorder) [facility]) 81801987 Diabetes mellitus Diabetes Mellitus 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 [place] (disorder) 12:00:00 ([place] [facility]) [id number] 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 Disease 12:00:00 ([place]disorder) [facility]) [id number] Epilepsy (disorder) Epilepsy 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 12:00:00 ([place] [facility]) [id number] 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 Myocardial 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 [place] infarction (disorder) Infarction 12:00:00 ([place] [facility]) [id number] Benign prostatic Benign Prostatic 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 [place] hyperplasia Hypertrophy 12:00:00 ([place]) [facility]) [id number] Essential Essential 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 [place] hypertension Hypertension 12:00:00 ([place]disorder) [facility]) 26123880 Diabetes mellitus Diabetes Mellitus 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 [place] (disorder) 12:00:00 ([place] [facility]) [id number] 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 12:00:00 ([place]order[place] [facility]) 25269545 Epilepsy (disorder) Epilepsy 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 12:00:00 [facility] 7983002 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 Myocardial 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 [place] infarction (disorder) Infarction 12:00:00 ([place] [facility]) [id number] Benign prostatic Benign Prostatic 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 [place] hyperplasia Hypertrophy 12:00:00 ([place] [facility]) 70699310 Essential Essential 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 [place] hypertension Hypertension 12:00:00 ([place]disorder) [facility]) 27291478 Diabetes mellitus Diabetes Mellitus 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 [place] (disorder) 12:00:00 ([place] [facility]) 14661054 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 12:00:00 ([place]order[place] [facility]) 05109395 Epilepsy (disorder) Epilepsy 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 12:00:00 [facility] 3095544 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 Myocardial 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 [place] infarction (disorder) Infarction 12:00:00 ([place] [facility]) [id number] Benign prostatic Benign Prostatic 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 [place] hyperplasia Hypertrophy 12:00:00 ([place]) [facility]) [id number] Essential Essential 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 [place] hypertension Hypertension 12:00:00 ([place]disorder[place] [facility]) 16039779 Diabetes mellitus Diabetes Mellitus 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 [place] (disorder) 12:00:00 ([place] [facility]) [id number] 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 12:00:00 ([place]order[place] [facility]) 52153315 Epilepsy (disorder) Epilepsy 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 12:00:00 ([facility] [id number] 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 Myocardial 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 [place] infarction (disorder) Infarction 12:00:00 ([facility]) [id number] Benign prostatic Benign Prostatic 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 [place] hyperplasia Hypertrophy 12:00:00 ([place]) [facility]) [id number] Essential Essential 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 [place] hypertension Hypertension 12:00:00 ([place]disorder) [facility]) 62938856 Diabetes mellitus Diabetes Mellitus 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 [place] (disorder) 12:00:00 [facility] [id number] 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 12:00:00 ([place]order) [facility]) 90402778 Epilepsy (disorder) Epilepsy 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 12:00:00 ([facility] [id number] 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 Myocardial 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 [place] infarction (disorder) Infarction 12:00:00 ([facility]) [id number] Benign prostatic Benign Prostatic 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 [place] hyperplasia Hypertrophy 12:00:00 ([place]) [facility]) [id number] Essential Essential 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 [place] hypertension Hypertension 12:00:00 ([place]disorder) [facility]) 71008098 Diabetes mellitus Diabetes Mellitus 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 [place] (disorder) 12:00:00 [facility] 51565981 Depressive disorder Depression 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 (disorder) 12:00:00 ([facility] 56549538 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 12:00:00 ([place]order) [facility]) 86935133 Epilepsy (disorder) Epilepsy 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 12:00:00 ([facility] 5942035 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 Myocardial 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 [place] infarction (disorder) Infarction 12:00:00 ([facility]) [id number] Benign prostatic Benign Prostatic 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 [place] hyperplasia Hypertrophy 12:00:00 ([place]) [facility]) 57907905 Essential Essential 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 [place] hypertension Hypertension 12:00:00 ([place]disorder) [facility]) 90287508 Diabetes mellitus Diabetes Mellitus 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 [place] (disorder) 12:00:00 ([facility]) [id number] 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 Disease 12:00:00 ([facility] [place]order) [facility]) 85664548 Epilepsy (disorder) Epilepsy 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 12:00:00 ([facility] 9536750 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 Myocardial 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 [place] infarction (disorder) Infarction 12:00:00 ([facility]) [id number] Benign prostatic Benign Prostatic 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 [place] hyperplasia Hypertrophy 12:00:00 ([place] [facility]) [id number] Essential Essential 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 [place] hypertension Hypertension 12:00:00 ([place]disorder) [facility]) 03155685 Diabetes mellitus Diabetes Mellitus 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 [facility] (disorder) 12:00:00 [facility] 40112300 Depressive disorder Depression 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 (disorder) 12:00:00 [facility] 47102807 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 12:00:00 ([place] [facility]) 37935823 Epilepsy (disorder) Epilepsy 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 12:00:00 [facility] 9856065 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 Myocardial 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 [place] infarction (disorder) Infarction 12:00:00 ([place] [facility]) [id number] Benign prostatic Benign Prostatic 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 [place] hyperplasia Hypertrophy 12:00:00 ([place] [facility]) 53628219 Essential Essential 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 [place] hypertension Hypertension 12:00:00 ([place]order[place] [facility]) 05155461 Diabetes mellitus Diabetes Mellitus 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 [place] (disorder) 12:00:00 ([facility]) 58511217 Depressive disorder Depression 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 [facility] (disorder) 12:00:00 ([place] [facility]) 32780091 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 Disease 12:00:00 ([place] [facility]) 48649607 Epilepsy (disorder) Epilepsy 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 12:00:00 ([facility]) [id number] 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 Myocardial 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 [place] infarction (disorder) Infarction 12:00:00 ([place] [facility]) [id number] Benign prostatic Benign Prostatic 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 [place] hyperplasia Hypertrophy 12:00:00 ([place] [facility]) 68901187 Essential Essential 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 [place] hypertension Hypertension 12:00:00 ([place]order) [facility]) 79057680 Diabetes mellitus Diabetes Mellitus 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 [place] (disorder) 12:00:00 ([place] [facility]) [id number] 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 Disease 12:00:00 ([place]order[place] [facility]) 6645864 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 Myocardial 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 [place] infarction (disorder) Infarction 12:00:00 ([place] [facility]) [id number] Benign prostatic Benign Prostatic 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 [place] hyperplasia Hypertrophy 12:00:00 ([place] [facility]) 07610548 Essential Essential 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 [place] hypertension Hypertension 12:00:00 ([place] [facility]) 19164084 Epilepsy (disorder) Epilepsy 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 12:00:00 ([facility]) 58887087 Diabetes mellitus Diabetes Mellitus 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 [place] (disorder) 12:00:00 ([facility]) 61066866 Depressive disorder Depression 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 (disorder) 12:00:00 [facility] 76970239 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 Disease 12:00:00 ([place]order) [facility]) 7100006 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 Myocardial 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 [place] infarction (disorder) Infarction 12:00:00 ([place] [facility]) [id number] Benign prostatic Benign Prostatic 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 [place] hyperplasia Hypertrophy 12:00:00 ([place] [facility]) 36150489 Essential Essential 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 [place] hypertension Hypertension 12:00:00 ([place]order) [facility]) 12817650 Epilepsy (disorder) Epilepsy 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 12:00:00 ([facility]) 94460605 Diabetes mellitus Diabetes Mellitus 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 [place] (disorder) 12:00:00 ([facility]) 34577745 Depressive disorder Depression 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 (disorder) 12:00:00 ([facility]) 45731112 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 12:00:00 ([place] [facility]) 75588832 Epilepsy (disorder) Epilepsy 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 12:00:00 ([facility]) 9924382 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 Myocardial 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 [place] infarction (disorder) Infarction 12:00:00 ([place] [facility]) [id number] Benign prostatic Benign Prostatic 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 [place] hyperplasia Hypertrophy 12:00:00 ([place] [facility]) [id number] Essential Essential 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 [place] hypertension Hypertension 12:00:00 ([place]order) [facility]) 66856160 Diabetes mellitus Diabetes Mellitus 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 [place] (disorder) 12:00:00 ([facility]) 95611208 Depressive disorder Depression 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 (disorder) 12:00:00 ([facility]) 79020957 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 12:00:00 ([place]order) [facility]) 0013765 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 Myocardial 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 [place] infarction (disorder) Infarction 12:00:00 ([place] [facility]) [id number] Benign prostatic Benign Prostatic 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 [place] hyperplasia Hypertrophy 12:00:00 ([place] [facility]) [id number] Essential Essential 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 [place] hypertension Hypertension 12:00:00 ([place]disorder) [facility]) 98240945 Epilepsy (disorder) Epilepsy 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 12:00:00 ([facility]) 43711900 Diabetes mellitus Diabetes Mellitus 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 [facility] (disorder) 12:00:00 ([facility]) 87689897 Depressive disorder Depression 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 (disorder) 12:00:00 ([facility]) 93828222 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 12:00:00 ([place]order[place] [facility]) 3902558 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 Myocardial 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 [place] infarction (disorder) Infarction 12:00:00 ([place] [facility]) [id number] Benign prostatic Benign Prostatic 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 [place] hyperplasia Hypertrophy 12:00:00 ([place] [facility]) 94178683 Essential Essential 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 [place] hypertension Hypertension 12:00:00 ([place]disorder) [facility]) 96814033 Epilepsy (disorder) Epilepsy 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 12:00:00 ([facility]) 09211074 Diabetes mellitus Diabetes Mellitus 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 [facility] (disorder) 12:00:00 ([facility]) 80697887 Depressive disorder Depression 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 (disorder) 12:00:00 ([facility]) 73567345 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 Disease 12:00:00 ([place] [facility]) 5650478 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 Myocardial Problem 11/09/2011 [place] infarction (disorder) Infarction 12:00:00 ([place] [facility]) [id number] Benign prostatic Benign Prostatic Problem 11/09/2011 [place] hyperplasia Hypertrophy 12:00:00 ([place] [facility]) [id number] Essential Essential Problem 11/09/2011 [place] hypertension Hypertension 12:00:00 ([place]disorder) [facility]) 20105612 Epilepsy (disorder) Epilepsy Problem 11/09/[address] 12:00:00 ([facility]) [id number] Diabetes mellitus Diabetes Mellitus Problem 11/09/2011 [place] (disorder) 12:00:00 ([facility]) [id number] Depressive disorder Depression Problem 11/09/[address] (disorder) 12:00:00 ([facility]) [id number] 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 12:00:00 ([place] (disorder) [facility]) 6979900 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 Myocardial Problem 11/09/2011 [place] infarction (disorder) Infarction 12:00:00 ([place] [facility]) [id number] Benign prostatic Benign Prostatic Problem 11/09/2011 [place] hyperplasia Hypertrophy 12:00:00 ([place] [facility]) [id number] Essential Essential Problem 11/09/2011 [place] hypertension Hypertension 12:00:00 ([place] (disorder) [facility]) 35344390 Epilepsy (disorder) Epilepsy Problem 11/09/[address] 12:00:00 ([facility]) 94506873 Diabetes mellitus Diabetes Mellitus Problem 11/09/2011 [place] (disorder) 12:00:00 ([facility]) 87513443 Depressive disorder Depression Problem 11/09/[address] (disorder) [facility]:00[facility] [id number] 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 Disease 12:00:00 ([place] (disorder) [facility]) 5282499 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 Myocardial Problem 11/09/2011 [place] infarction (disorder) Infarction 12:00:00 ([place] [facility]) [id number] Benign prostatic Benign Prostatic Problem 11/09/2011 [place] hyperplasia Hypertrophy 12:00:00 ([place]order) [facility]) [id number] Essential Essential Problem 11/09/2011 [place] hypertension Hypertension 12:00:00 ([place] (disorder) [facility]) 89185248 Epilepsy (disorder) Epilepsy Problem 11/09/[address] 12:00:00 ([facility]) 93424502 Diabetes mellitus Diabetes Mellitus Problem 11/09/2011 [place] (disorder) 12:00:00 ([facility]) 66025359 Depressive disorder Depression Problem 11/09/2011 [facility] (disorder) 12:00:00 ([facility]) [id number] 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 12:00:00 ([place] (disorder) [facility]) 3074806 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 Myocardial Problem 11/09/2011 [place] infarction (disorder) Infarction 12:00:00 ([place] [facility]) [id number] Benign prostatic Benign Prostatic Problem 11/09/2011 [place] hyperplasia Hypertrophy 12:00:00 ([place] (disorder) [facility]) [id number] Essential Essential Problem 11/09/2011 [place] hypertension Hypertension 12:00:00 ([place] (disorder) [facility]) 76524222 Epilepsy (disorder) Epilepsy Problem 11/09/[address] 12:00:00 ([facility]) 10502027 Diabetes mellitus Diabetes Mellitus Problem 11/09/2011 [place] (disorder) 12:00:00 ([facility]) 40779770 Depressive disorder Depression Problem 11/09/[address] (disorder) [facility]:00:[facility] 88552644 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 Disease 12:00:00 ([place] (disorder) [facility]) 0368780 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 Myocardial Problem 11/09/2011 [place] infarction (disorder) Infarction 12:00:00 ([place] [facility]) [id number] Benign prostatic Benign Prostatic Problem 11/09/2011 [place] hyperplasia Hypertrophy 12:00:00 ([place]order) [facility]) 81083925 Essential Essential Problem 11/09/2011 [place] hypertension Hypertension 12:00:00 ([place] (disorder) [facility]) 09143492 Epilepsy (disorder) Epilepsy Problem 11/09/[address] 12:00:00 ([facility]) 45685731 Diabetes mellitus Diabetes Mellitus Problem 11/09/2011 [place] (disorder) 12:00:00 ([facility]) 75359656 Depressive disorder Depression Problem 11/09/[address] (disorder) 12:00:00 ([facility]) 81056355 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 12:00:00 ([place]disorder) [facility]) 5014935 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 Myocardial Problem 11/09/2011 [place] infarction (disorder) Infarction 12:00:00 ([place] [facility]) [id number] Benign prostatic Benign Prostatic Problem 11/09/2011 [place] hyperplasia Hypertrophy 12:00:00 ([place]order) [facility]) 90669281 Essential Essential Problem 11/09/2011 [place] hypertension Hypertension 12:00:00 ([place] (disorder) [facility]) 83927813 Epilepsy (disorder) Epilepsy Problem 11/09/[address] 12:00:00 ([facility]) 97076474 Diabetes mellitus Diabetes Mellitus Problem 11/09/2011 [place] (disorder) 12:00:00 ([facility]) 75744171 Depressive disorder Depression Problem 11/09/[address] (disorder) 12:00:00 ([facility]) 84905651 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 Disease 12:00:00 ([place] (disorder) [facility]) 2784048 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 Myocardial Problem 11/09/2011 [place] infarction (disorder) Infarction 12:00:00 ([place] [facility]) [id number] Benign prostatic Benign Prostatic Problem 11/09/2011 [place] hyperplasia Hypertrophy 12:00:00 ([place]disorder) [facility]) 4252505 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 Myocardial Problem 11/09/2011 [place] infarction (disorder) Infarction 12:00:00 ([place] [facility]) [id number] Benign prostatic Benign Prostatic Problem 11/09/2011 [place] hyperplasia Hypertrophy 12:00:00 ([place]order) [facility]) 46637971 Essential Essential Problem 11/09/2011 [place] hypertension Hypertension 12:00:00 ([place] (disorder) [facility]) 89975401 Epilepsy (disorder) Epilepsy Problem 11/09/[address] 12:00:00 ([facility]) 51941410 Diabetes mellitus Diabetes Mellitus Problem 11/09/2011 [place] (disorder) 12:00:00 ([facility]) 27989165 Depressive disorder Depression Problem 11/09/[address] (disorder) 12:00:00 ([facility]) 23247045 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 12:00:00 ([place] (disorder) [facility]) 2991735 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 Myocardial Problem 11/09/2011 [place] infarction (disorder) Infarction 12:00:00 [facility] [id number] Benign prostatic Benign Prostatic Problem 11/09/2011 [place] hyperplasia Hypertrophy 12:00:00 ([place] (disorder) [facility]) 62768621 Essential Essential Problem 11/09/2011 [place] hypertension Hypertension 12:00:00 ([place] (disorder) [facility]) 88234960 Epilepsy (disorder) Epilepsy Problem 11/09/[address] 12:00:00 ([facility]) 04464097 Diabetes mellitus Diabetes Mellitus Problem 11/09/2011 [place] (disorder) 12:00:[facility] 19440489 Depressive disorder Depression Problem 11/09/[address] (disorder) 12:00:00 [facility] 24223928 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 Disease 12:00:00 ([place] (disorder) [facility]) 3810762 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 Myocardial Problem 11/09/2011 [place] infarction (disorder) Infarction 12:00:00 ([facility]) [id number] Benign prostatic Benign Prostatic Problem 11/09/2011 [place] hyperplasia Hypertrophy 12:00:00 ([place] (disorder) [facility]) 38192712 Essential Essential Problem 11/09/2011 [place] hypertension Hypertension 12:00:00 ([place] (disorder) [facility]) 33558992 Epilepsy (disorder) Epilepsy Problem 11/09/[address] 12:00:00 ([facility]) 95862144 Diabetes mellitus Diabetes Mellitus Problem 11/09/2011 [place] (disorder) 12:00:00 ([facility]) 52080792 Depressive disorder Depression Problem 11/09/[address] (disorder) [facility]:00:[facility] 74754106 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 12:00:00 ([place] (disorder) [facility]) 2908485 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 Myocardial Problem 11/09/2011 [place] infarction (disorder) Infarction 12:00:00 ([facility]) [id number] Benign prostatic Benign Prostatic Problem 11/09/2011 [place] hyperplasia Hypertrophy 12:00:00 ([place] (disorder) [facility]) 01756566 Essential Essential Problem 11/09/2011 [place] hypertension Hypertension 12:00:00 ([place] (disorder) [facility]) 17990297 Epilepsy (disorder) Epilepsy Problem 11/09/[address] 12:00:00 ([facility]) 51939308 Diabetes mellitus Diabetes Mellitus Problem 11/09/2011 [place] (disorder) 12:00:00 ([facility]) 65757432 Depressive disorder Depression Problem 11/09/[address] (disorder) 12:00:00 [facility] 40222532 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 Disease 12:00:00 ([place] (disorder) [facility]) 9975539 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 Myocardial Problem 11/09/2011 [place] infarction (disorder) Infarction 12:00:00 ([facility]) [id number] Benign prostatic Benign Prostatic Problem 11/09/2011 [place] hyperplasia Hypertrophy 12:00:00 ([place] ([place]order) [facility]) 23028684 Essential Essential Problem 11/09/2011 [place] hypertension Hypertension 12:00:00 ([place] (disorder) [facility]) 49471543 Epilepsy (disorder) Epilepsy Problem 11/09/[address] 12:00:00 ([facility]) 28943377 Diabetes mellitus Diabetes Mellitus Problem 11/09/2011 [place] (disorder) 12:00:00 ([facility]) 75070249 Depressive disorder Depression Problem 11/09/[address] (disorder) 12:00:00 ([facility]) 28625115 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 12:00:00 ([place] (disorder) [facility]) 5889308 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 Myocardial Problem 11/09/2011 [place] infarction (disorder) Infarction 12:00:00 ([facility] [id number] Benign prostatic Benign Prostatic Problem 11/09/2011 [place] hyperplasia Hypertrophy 12:00:00 ([place] (disorder) [facility]) 49091358 Essential Essential Problem 11/09/2011 [place] hypertension Hypertension 12:00:00 ([place] (disorder) [facility]) 15557773 Epilepsy (disorder) Epilepsy Problem 11/09/[address] 12:00:00 ([facility]) 69827354 Diabetes mellitus Diabetes Mellitus Problem 11/09/2011 [place] (disorder) 12:00:[facility] 02184962 Depressive disorder Depression Problem 11/09/[address] (disorder) 12:00:00 [facility] 38509886 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 Disease 12:00:00 ([place] (disorder) [facility]) 9219345 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 Myocardial Problem 11/09/2011 [place] infarction (disorder) Infarction 12:00:00 ([facility]) [id number] Benign prostatic Benign Prostatic Problem 11/09/2011 [place] hyperplasia Hypertrophy 12:00:00 ([place] ([place]order) [facility]) 46397968 Essential Essential Problem 11/09/2011 [place] hypertension Hypertension 12:00:00 ([place] (disorder) [facility]) 27031131 Epilepsy (disorder) Epilepsy Problem 11/09/[address] 12:00:00 [facility] 69867050 Diabetes mellitus Diabetes Mellitus Problem 11/09/2011 [place] (disorder) 12:00:00 ([facility]) 71997268 Depressive disorder Depression Problem 11/09/[address] (disorder) 12:00:00 [facility] 07325920 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 12:00:00 ([place] (disorder) [facility]) 0321984 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 Myocardial Problem 11/09/2011 [place] infarction (disorder) Infarction 12:00:00 ([place] [facility]) [id number] Benign prostatic Benign Prostatic Problem 11/09/2011 [place] hyperplasia Hypertrophy 12:00:00 ([place]) [facility]) 07696360 Essential Essential Problem 11/09/2011 [place] hypertension Hypertension 12:00:00 ([place] (disorder) [facility]) 67957644 Epilepsy (disorder) Epilepsy Problem 11/09/[address] 12:00:00 ([facility]) 8303018 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 Myocardial Problem 11/09/2011 [place] infarction (disorder) Infarction 12:00:00 ([place] [facility]) [id number] Benign prostatic Benign Prostatic Problem 11/09/2011 [place] hyperplasia Hypertrophy 12:00:00 ([place] ([place]order) [facility]) 42186621 Essential Essential Problem 11/09/2011 [place] hypertension Hypertension 12:00:00 ([place] (disorder) [facility]) 16434163 Epilepsy (disorder) Epilepsy Problem 11/09/[address] 12:00:00 ([facility]) 51982071 Diabetes mellitus Diabetes Mellitus Problem 11/09/2011 [place] (disorder) 12:00:00 ([facility]) 10304451 Depressive disorder Depression Problem 11/09/[address] (disorder) 12:00:00 ([facility]) 08834912 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 12:00:00 ([place] (disorder) [facility]) 1457746 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 Myocardial Problem 11/09/2011 [place] infarction (disorder) Infarction 12:00:00 ([place] [facility]) [id number] Benign prostatic Benign Prostatic Problem 11/09/2011 [place] hyperplasia Hypertrophy 12:00:00 ([place] ([place]order) [facility]) 88499743 Essential Essential Problem 11/09/2011 [place] hypertension Hypertension 12:00:00 ([place] (disorder) [facility]) 48258079 Epilepsy (disorder) Epilepsy Problem 11/09/[address] 12:00:00 ([facility]) 71233558 Diabetes mellitus Diabetes Mellitus Problem 11/09/2011 [place] (disorder) 12:00:00 ([facility]) 43170437 Depressive disorder Depression Problem 11/09/[address] (disorder) 12:00:00 ([facility]) 40533549 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 Disease 12:00:00 ([place] (disorder) [facility]) 54627841 Diabetes mellitus Diabetes Mellitus Problem 11/09/2011 [place] (disorder) 12:00:00 ([facility]) 79226050 Depressive disorder Depression Problem 11/09/[address] (disorder) 12:00:00 ([facility]) 65121026 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 Disease 12:00:00 ([place] (disorder) [facility]) 7223506 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 Myocardial Problem 11/09/2011 [place] infarction (disorder) Infarction 12:00:00 ([place] [facility]) 253905354 Benign prostatic Benign Prostatic Problem 11/09/2011 [place] hyperplasia Hypertrophy 12:00:00 ([place]order) [facility]) 03402078 Essential Essential Problem 11/09/2011 [place] hypertension Hypertension 12:00:00 ([place] (disorder) [facility]) 54744132 Epilepsy (disorder) Epilepsy Problem 11/09/[address] 12:00:00 ([facility]) 01684802 Diabetes mellitus Diabetes Mellitus Problem 11/09/2011 [place] (disorder) 12:00:00 ([facility]) 32966948 Depressive disorder Depression Problem 11/09/[address] (disorder) 12:00:00 ([facility]) 13998004 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 12:00:00 ([place] (disorder) [facility]) 9237267 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 Myocardial Problem 11/09/2011 [place] infarction (disorder) Infarction 12:00:00 ([facility]) [id number] Benign prostatic Benign Prostatic Problem 11/09/2011 [place] hyperplasia Hypertrophy 12:00:00 ([place]order) [facility]) 22170737 Essential Essential Problem 11/09/2011 [place] hypertension Hypertension 12:00:00 ([place] (disorder) [facility]) 07108584 Epilepsy (disorder) Epilepsy Problem 11/09/[address] 12:00:00 [facility] 19244719 Diabetes mellitus Diabetes Mellitus Problem 11/09/2011 [place] (disorder) 12:00:[facility] 72180932 Depressive disorder Depression Problem 11/09/[address] (disorder) 12:00:00 ([facility]) 91504735 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 Disease 12:00:00 ([place] (disorder) [facility]) 9618263 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 Myocardial Problem 11/09/2011 [place] infarction (disorder) Infarction 12:00:00 ([facility] 661489308 Benign prostatic Benign Prostatic Problem 11/09/2011 [place] hyperplasia Hypertrophy 12:00:00 ([place]order) [facility]) 48659100 Essential Essential Problem 11/09/2011 [place] hypertension Hypertension 12:00:00 ([place] (disorder) [facility]) 32232383 Epilepsy (disorder) Epilepsy Problem 11/09/[address] 12:00:00 ([facility]) 14888070 Diabetes mellitus Diabetes Mellitus Problem 11/09/2011 [place] (disorder) 12:00:00 [facility] 25746941 Depressive disorder Depression Problem 11/09/[address] (disorder) 12:00:00 ([facility]) 02718269 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 12:00:00 ([place] (disorder) [facility]) 1837977 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 Myocardial Problem 11/09/2011 [place] infarction (disorder) Infarction 12:00:00 ([place] [facility]) [id number] Benign prostatic Benign Prostatic Problem 11/09/2011 [place] hyperplasia Hypertrophy 12:00:00 ([place]) [facility]) 96411446 Essential Essential Problem 11/09/2011 [place] hypertension Hypertension 12:00:00 ([place] (disorder) [facility]) 91454576 Epilepsy (disorder) Epilepsy Problem 11/09/[address] 12:00:00 [facility] 81674347 Diabetes mellitus Diabetes Mellitus Problem 11/09/2011 [place] (disorder) 12:00:00 ([facility]) 02088484 Depressive disorder Depression Problem 11/09/[address] (disorder) 12:00:00 ([facility]) 63286748 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 12:00:00 ([place] (disorder) [facility]) 41080987 Essential Essential Problem 11/09/2011 [place] hypertension Hypertension 12:00:00 ([place] (disorder) [facility]) 62312918 Epilepsy (disorder) Epilepsy Problem 11/09/[address] 12:00:00 ([facility]) 61332869 Diabetes mellitus Diabetes Mellitus Problem 11/09/2011 [place] (disorder) 12:00:00 ([facility]) 12235412 Depressive disorder Depression Problem 11/09/[address] (disorder) 12:00:00 [facility] 48477345 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 12:00:00 ([place] (disorder) [facility]) 2675956 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 Myocardial Problem 11/09/2011 [place] infarction (disorder) Infarction 12:00:00 ([facility]) [id number] Benign prostatic Benign Prostatic Problem 11/09/2011 [place] hyperplasia Hypertrophy 12:00:00 ([place]) [facility]) 37433703 Essential Essential Problem 11/09/2011 [place] hypertension Hypertension 12:00:00 ([place] (disorder) [facility]) 84651265 Epilepsy (disorder) Epilepsy Problem 11/09/[address] 12:00:00 [facility] 28258879 Diabetes mellitus Diabetes Mellitus Problem 11/09/2011 [place] (disorder) 12:00:00 ([facility]) 45922656 Depressive disorder Depression Problem 11/09/[address] (disorder) 12:00:00 ([facility]) 57867205 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 12:00:00 ([place] (disorder) [facility]) 1264480 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 Myocardial Problem 11/09/2011 [place] infarction (disorder) Infarction 12:00:00 ([facility]) 693220411 Benign prostatic Benign Prostatic Problem 11/09/2011 [place] hyperplasia Hypertrophy 12:00:00 ([place]) [facility]) 19416458 Essential Essential Problem 11/09/2011 [place] hypertension Hypertension 12:00:00 ([place] (disorder) [facility]) 84858394 Epilepsy (disorder) Epilepsy Problem 11/09/[address] 12:00:00 [facility] 52198513 Diabetes mellitus Diabetes Mellitus Problem 11/09/2011 [place] (disorder) 12:00:00 [facility] 12276098 Depressive disorder Depression Problem 11/09/[address] (disorder) 12:00:00 [facility] 12838901 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 12:00:00 ([place] (disorder) [facility]) 6651700 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 Myocardial Problem 11/09/2011 [place] infarction (disorder) Infarction 12:00:00 ([place] [facility]) 957761870 Benign prostatic Benign Prostatic Problem 11/09/2011 [place] hyperplasia Hypertrophy 12:00:00 ([place] [facility]) 33339085 Essential Essential Problem 11/09/2011 [place] hypertension Hypertension 12:00:00 ([place] (disorder) [facility]) 48869841 Epilepsy (disorder) Epilepsy Problem 11/09/[address] 12:00:00 ([facility]) 36228049 Diabetes mellitus Diabetes Mellitus Problem 11/09/2011 [place] (disorder) 12:00:00 ([facility]) 94627851 Depressive disorder Depression Problem 11/09/2011 [facility] (disorder) 12:00:00 ([facility]) 29237780 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 M79.675 Pain in left toe(s) Pain in left toe(s) Diagnosis 019 [place] 06:21:40 ([facility]) M79.674 Pain in right toe(s) Pain in right toe(s) Diagnosis 06/14 [place] 06:21:40 ([facility]) B35.1 Tinea unguium Tinea unguium Diagnosis 06/14/2018 [place] 06:21:40 ([facility]) E11.40 Type 2 diabetes Type 2 diabetes Diagnosis 06/14/2018 JACKELYN OVALLE mellitus with mellitus with 06:21:40 ([place] diabetic neuropathy, diabetic neuropathy, PM ES T [facility] unspecified [facility]) Diagnosis NEXTGEN ([facility]) Diagnosis NEXTGEN ([facility]) Diagnosis NEXTGEN ([facility]) Diagnosis NEXTGEN ([facility]) Diagnosis NEXTGEN ([facility]) Surgeries/Procedures Procedure Description Date Indications Data Source(s) OFFICE/OUTPATIENT VISIT, NEX TGEN ([facility] 12:00:00 [place]) AM EDT - 0 12:00:00 AM EDT OFFICE/OUTPATIENT VISIT, NEX TGEN ([facility] 0 [facility] 12:00:00 [place]) AM EDT - 0 12:00:00 AM EDT [facility] at [place] [facility] Wrap Visit RADHA ([facility] ([facility]) visit, Established Patient 0 Fernando established patient; a 12:00:00 [facility] chwr-hu-afit encounter (one-on-one) between an established patient and a fq practitioner during which time one or more fq services are rendered and includes a typical bundle of medicare-covered services that would be furnished ranch supervisor to a patient receiving a fq visit FINGER STICK BLOOD GLUCOSE FINGER STICK BLOOD RADHA ([facility] GLUCOSE 0 Fernando 12:00:00 [facility]) OFFICE/OUTPATIENT VISIT, NEX TGEN ([facility] EST 0 [facility] 12:00:00 [place]) AM EDT - 0 12:00:00 AM EDT Noncompliance with therapy Noncompliance with RADHA ([facility] therapy 0 Fernando 12:00:00 [facility]) No prior serious illness No prior serious RADHA ([facility] illness 0 Fernando 12:00:00 [facility]) [facility] ([facility]) visit, Established Patient 0 Fernando established patient; a 12:00:00 [facility] sgpe-zr-uosq encounter (one-on-one) between an established patient and a fq practitioner during which time one or more fq services are rendered and includes a typical bundle of medicare-covered services that would be furnished ranch supervisor to a patient receiving a fq visit Sign language or oral Sign language or GR EENWAY ([facility] interpretive services, per Oral Interpretation 0 Fernando 15 minutes per 15 Minutes 12:00:00 [facility]) Bmi documented outside BMI OUTSIDE NORMAL CHAMBERINO ([facility] normal parameters, no RANGE - NO F/U PLAN 0 Fernando follow-up plan documented, 12:00:00 [place] [facility] FINGER STICK BLOOD GLUCOSE FINGER STICK BLOOD CHAMBERINO ([facility] GLUCOSE 0 Fernando 12:00:00 [facility]) History of hypertension History of JACKELYN OVALLE ([facility] hypertension 0 Fernando 12:00:00 [facility]) History of diabetes History of diabetes Cassidy REENABELARDO ([facility] mellitus mellitus 0 Fernando 12:00:00 [facility]) DEBRIDEMENT NAILS SIX OR DEBRIDEMENT NAILS CHAMBERINO ([facility] MORE (Two Class B Findings) SIX OR MORE (Two 0 Fernando Class B Findings) 12:00:00 [facility]) [facility] [place] [facility] Wrap Visit CHAMBERINO ([facility] (fqhc) visit, Established Patient 0 Fernando established patient; a 12:00:00 [facility] sesv-ou-coiw encounter (one-on-one) between an established patient and a fq practitioner during which time one or more [facility] services are rendered and includes a typical bundle of medicare-covered services that would be furnished ranch supervisor to a patient receiving a fq visit VDQ-[id number] KRP-WKLS-[id number] [facility] ([facility] 0 Fernando 12:00:00 [facility]) PSA (PROSTATE SPECIFIC A PSA (PROSTATE GR EENWAY ([facility] SPECIFIC A 0 Fernando 12:00:00 [facility]) HEMOGLOBIN A1C HEMOGLOBIN A1C CHAMBERINO ([facility] 0 Fernando 12:00:00 [facility]) IMMUNOELECTROPHORESIS OTHER OTHER FLUIDS CHAMBERINO ([facility] FLUIDS CONCENTRATION (URINE..) WITH 0 Verno n CONCENTRATION 12:00:00 [facility]) LIPID PANEL LIPID PANEL CHAMBERINO ([facility] 0 Fernando 12:00:00 [facility]) METABOLIC PANEL COMPREHE METABOLIC PANEL CHAMBERINO ([facility] COMPREHE 0 Fernando 12:00:00 [facility]) TSH-THYROID STIMULATING TSH-THYROID JACKELYN NWLINDA ([facility] STIMULATING 0 [place] 12:00:00 [facility]) Injection, insulin, per 5 Insulin (Injection) CHAM[facility] ([facility] units 0 [place] 12:00:00 [facility]) FINGER STICK BLOOD GLUCOSE FINGER STICK BLOOD [place] ([facility] GLUCOSE 0 [place] 12:00:00 [facility]) [facility] Wrap Visit CHAMBERINO ([facility] ([facility]) visit, Established Patient 0 Fernando established patient; a 12:00:00 [facility]) ddmy-qc-fmlm encounter (one-on-one) between an established patient and a [facility] practitioner during which time one or more [facility] services are rendered and includes a typical bundle of medicare-covered services that would be furnished ranch supervisor to a patient receiving a [facility] visit Injection, insulin, per 5 Insulin (Injection) CHAMBERINO ([facility] units 0 [place] 12:00:00 [facility]) FINGER STICK BLOOD GLUCOSE FINGER STICK BLOOD CHAMBERINO ([facility] GLUCOSE 0 Fernando 12:00:00 [facility]) OFFICE/OUTPATIENT VISIT, JOEL GRACIA ([address] 12:00:00 [place]) AM EDT - 0 12:00:00 EDT History of hypertension History of JACKELYN OVALLE ([facility] hypertension 0 [place] 12:00:00 [facility]) History of diabetes History of diabetes Cassidy LEA ([facility] mellitus mellitus 0 Fernando 12:00:00 [facility]) DEBRIDEMENT NAILS SIX OR DEBRIDEMENT NAILS CHAMBERINO ([facility] MORE (Two Class B Findings) SIX OR MORE (Two 0 Fernando Class B Findings) 12:00:00 [facility]) [facility] Wrap Visit RADHA ([facility] ([facility]) visit, Established Patient 0 Fernando established patient; a 12:00:00 [facility] fsjv-og-uelg encounter (one-on-one) between an established patient and a fq practitioner during which time one or more fqhc services are rendered and includes a typical bundle of medicare-covered services that would be furnished ranch supervisor to a patient receiving a fq visit DUP-SCAN XTR VEINS COMPLETE Scan Extremity Veins CHAMBERINO ([facility] BILATERAL STUDY Complete Bilateral 0 Fernando ULTRASOUND 12:00:00 [facility]) History of hypertension History of JACKELYN OVALLE ([facility] hypertension 0 Fernando 12:00:00 [facility]) History of diabetes History of diabetes Cassidy LEA ([facility] mellitus mellitus 0 Fernando 12:00:00 [facility]) [facility] Wrap Visit CHAMBERINO ([facility] ([facility]) visit, Established Patient 0 Fernando established patient; a 12:00:00 [facility] pgyj-ie-mjoh encounter (one-on-one) between an established patient and a fqhc practitioner during which time one or more fqhc services are rendered and includes a typical bundle of medicare-covered services that would be furnished ranch supervisor to a patient receiving a fq visit Non-prescription drugs Unclassified [facility] ([facility] Non-Prescription 0 Fernando Drug 12:00:00 [facility]) Administration of oral, ADMIN OF ORAL OR IM CHAMBERINO ([facility] intramuscular and/or MEDS 0 Fernando subcutaneous medication by 12:00:00 [facility]) agency/professional, per visit DEBRIDEMENT NAILS SIX OR DEBRIDEMENT NAILS CHAMBERINO ([facility] MORE (Two Class B Findings) SIX OR MORE (Two 0 Fernando Class B Findings) 12:00:00 [facility]) FINGER STICK BLOOD GLUCOSE FINGER STICK BLOOD CHAMBERINO ([facility] GLUCOSE 0 Fernando 12:00:00 [facility]) [facility] ([facility] ([facility]) visit, Established Patient 0 Fernando established patient; a 12:00:00 [facility] vbbj-sh-lirf encounter (one-on-one) between an established patient and a fqhc practitioner during which time one or more fqhc services are rendered and includes a typical bundle of medicare-covered services that would be furnished ranch supervisor to a patient receiving a fqhc visit OFFICE/OUTPATIENT VISIT, N[facility]EN ([facility] 12[facility]) AM EDT - 0 12:00:00 AM EDT [facility] [place] [facility] Wrap Visit RADHA ([facility] (fqhc) visit, Established Patient 0 Fernando established patient; a 12:00:00 [facility] uxsb-tp-hwpj encounter (one-on-one) between an established patient and a fqhc practitioner during which time one or more fqhc services are rendered and includes a typical bundle of medicare-covered services that would be furnished ranch supervisor to a patient receiving a fqhc visit Administration of oral, ADMIN OF ORAL OR IM RADHA ([facility] intramuscular and/or MEDS 0 Fernando subcutaneous medication by 12:00:00 [facility]) agency/professional, per visit FINGER STICK BLOOD GLUCOSE FINGER STICK BLOOD RADHA ([facility] GLUCOSE 0 Fernando 12:00:00 [facility]) Injection, insulin, per 5 Insulin (Injection) RADHA ([facility] units 0 Fernando 12:00:00 [facility]) Psychotherapy (30 Mins) W/ N EXTGEN ([facility] E&M 0 [facility] 12:[facility] [place]) AM EST - 0 12:00:00 AM EST OFFICE/OUTPATIENT VISIT, NEX TGEN ([facility] EST 0 [facility] 12:[facility] [place]) AM EST - 0 12:00:00 AM EST Individual Psychotherapy NEX TGEN ([facility] (30 Min) [facility] 12:[facility] [place]) AM EST - 0 12:00:00 AM EST No recent change in medical No recent change in RADHA ([facility] history medical history 0 Fernando 12:00:00 [facility]) FINGER STICK BLOOD GLUCOSE FINGER STICK BLOOD CHAMBERINO ([facility] GLUCOSE 0 Fernando 12:00:00 [facility]) [facility] [place] [facility] Wrap Visit CHAMBERINO ([facility] (fqhc) visit, Established Patient 0 Fernando established patient; a 12:00:00 [facility] pgxk-rp-lzsf encounter (one-on-one) between an established patient and a fqhc practitioner during which time one or more fqhc services are rendered and includes a typical bundle of medicare-covered services that would be furnished ranch supervisor to a patient receiving a fqhc visit [facility] [place] [facility] Wrap Visit CHAMBERINO ([facility] ([facility]) visit, Established Patient 0 Fernando established patient; a 12:00:00 [facility] ophi-gd-zalc encounter (one-on-one) between an established patient and a fqhc practitioner during which time one or more fqhc services are rendered and includes a typical bundle of medicare-covered services that would be furnished ranch supervisor to a patient receiving a fqhc visit Psychotherapy (30 Mins) W N EXTGEN ([facility] E&M 0 [facility] 12:00:00 [facility]) AM EST - 0 12:00:00 AM EST OFFICE/OUTPATIENT VISIT, NEX TGEN ([facility] 0 [facility] 12:00:00 [place]) AM EST - 0 12:00:00 AM EST Individual Psychotherapy NEX TGEN ([facility] (30 Min) 0 [facility] 12:00:00 [facility]) AM EST - 0 12:00:00 AM EST Psychotherapy (30 Mins) W N EXTGEN ([facility] E&M 9 [facility] 12:00:00 [place]) AM EST - 9 12:00:00 AM EST OFFICE/OUTPATIENT VISIT, NEX TGEN ([address] 12:00:00 [place]) AM EST - 9 12:00:00 AM EST Individual Psychotherapy NEX TGEN ([facility] (30 Min) [address] [place] [address] 12:00:00 [place]) AM EST - 9 12:00:00 AM EST [id number] WDS-MIJV-JPAEUYUD GREEN ABELARDO ([address] 12:00:00 [facility]) TSH-THYROID STIMULATING TSH-THYROID GREE NWAY ([facility] STIMULATING [address] [place] [address] 12:00:00 [facility]) METABOLIC PANEL COMPREHE METABOLIC PANEL CHAMBERINO ([facility] COMPREHE [address] [place] [address] 12:00:00 [facility]) [facility] Wrap Visit CHAMBERINO ([facility] ([facility]) visit, Established Patient 9 Fernando established patient; a 12:00:00 [facility] fzbr-mz-jrgp encounter (one-on-one) between an established patient and a fqhc practitioner during which time one or more fqhc services are rendered and includes a typical bundle of medicare-covered services that would be furnished ranch supervisor to a patient receiving a fqhc visit Bmi documented outside BMI OUTSIDE NORMAL CHAMBERINO ([facility] normal parameters, no RANGE - NO F/U PLAN [address] [place] [address] follow-up plan documented, 12:00:00 N [facility] no reason given [facility]) [facility] [place] [facility] Wrap Visit CHAMBERINO ([facility] ([facility]) visit, Established Patient 9 Fernando established patient; a 12:00:00 [facility] qukm-fi-kksk encounter (one-on-one) between an established patient and a fqhc practitioner during which time one or more fqhc services are rendered and includes a typical bundle of medicare-covered services that would be furnished ranch supervisor to a patient receiving a fqhc visit FINGER STICK BLOOD GLUCOSE FINGER STICK BLOOD RADHA ([facility] GLUCOSE [address] [place] [address] 12:00:00 [facility]) Psychotherapy (30 Mins) W/ N EXTGEN ([facility] E&[address] 12:00:00 [place]) AM EST - 9 12:00:00 AM EST OFFICE/OUTPATIENT VISIT, NEX TGEN ([address] 12:00:00 [place]) AM EST - 9 12:00:00 AM EST [facility] [place] [facility] Wrap Visit RADHA ([facility] ([facility]) visit, Established Patient 9 Fernando established patient; a 12:00:00 [facility] onai-ay-asvb encounter (one-on-one) between an established patient and a fqhc practitioner during which time one or more fqhc services are rendered and includes a typical bundle of medicare-covered services that would be furnished ranch supervisor to a patient receiving a fqhc visit Bmi is documented above BMI > NORMAL BASILIO LAUREN ([facility] normal parameters and a DOCUMENTED W F/U 9 Fernando follow-up plan is PLAN 12:00:00 [place] documented [facility]) [facility] [place] [facility] Wrap Visit RADHA ([facility] (fq) visit, Established Patient 9 Fernando established patient; a 12:00:00 [facility] lqpq-jz-rlqj encounter (one-on-one) between an established patient and a fqhc practitioner during which time one or more fqhc services are rendered and includes a typical bundle of medicare-covered services that would be furnished ranch supervisor to a patient receiving a fqhc visit FINGER STICK BLOOD GLUCOSE FINGER STICK BLOOD RADHA ([place] GLUCOSE 9 Fernando 12:00:00 [facility]ighborhood [facility]) Psychotherapy (30 Mins) W N EXTGEN ([facility] E&[address] 12:00:00 [place]) AM EDT - 9 12:00:00 AM EDT OFFICE/OUTPATIENT VISIT, NEX TGEN ([address] 12:00:00 [place]) AM EDT - 9 12:00:00 AM EDT Psychotherapy (30 Mins) W N EXTGEN ([facility] E&[address] 12:00:00 [place]) AM EDT - 9 12:00:00 AM EDT OFFICE/OUTPATIENT VISIT, NEX TGEN ([address] 12:00:00 [place]) AM EDT - 9 12:00:00 AM EDT Individual Psychotherapy NEX [facility] ([facility] ([facility] Min) [address] [place] [address] 12:00:00 [place]) AM EDT - 9 12:00:00 AM EDT No prior serious illness No prior serious RADHA ([facility] illness 9 [place] 12:00:00 [facility]) DEBRIDEMENT NAILS SIX OR DEBRIDEMENT NAILS RADHA ([facility] MORE (Two Class B Findings) SIX OR MORE (Two Fernando Class B Findings) 12:00:00 [facility]) Bmi is documented above BMI > NORMAL BASILIO MITCHELLWAY ([facility] normal parameters and a DOCUMENTED W F/U 9 [place] follow-up plan is PLAN 12:00:00 [facility] documented [facility]) [facility] ([facility] (fq) visit, Established Patient 9 Fernando established patient; a 12:00:00 [facility] nlmc-cu-saud encounter (one-on-one) between an established patient and a fqhc practitioner during which time one or more fqhc services are rendered and includes a typical bundle of medicare-covered services that would be furnished ranch supervisor to a patient receiving a fq visit Sign language or oral Sign language or GR EENABELARDO ([facility] interpretive services, per Oral Interpretation Fernando 15 minutes per 15 Minutes 12:00:00 [facility]) FINGER STICK BLOOD GLUCOSE FINGER STICK BLOOD RADHA ([facility] GLUCOSE 9 Fernando 12:00:00 [facility]) [facility] [place] [facility] Wrap Visit RADHA ([facility] (fqhc) visit, Established Patient 9 Fernando established patient; a 12:00:00 [facility] eumo-vm-xyqg encounter (one-on-one) between an established patient and a fqhc practitioner during which time one or more fqhc services are rendered and includes a typical bundle of medicare-covered services that would be furnished ranch supervisor to a patient receiving a fqhc visit History of hypertension History of JACKELYN OVALLE ([facility] hypertension 9 [place] 12:00:00 [facility]) History of diabetes History of diabetes G REEYAMILE ([facility] mellitus mellitus 9 Fernando 12:00:00 [facility]) Psychotherapy (30 Mins) W N EXTGEN ([facility] E&M [address] [place] [address] 12:00:00 [place]) AM EDT - 9 12:00:00 AM EDT OFFICE/OUTPATIENT VISIT, NEX TGEN ([facility] EST [address] [place] [address] 12:00:00 [place]) AM EDT - 9 12:00:00 AM EDT Individual Psychotherapy NEX TGEN ([facility] (30 Min) [address] [place] [address] 12:00:00 [place]) EDT - 9 12:00:00 AM EDT No prior serious illness No prior serious RADHA ([facility] illness 9 Fernando 12:00:00 [facility]) FINGER STICK BLOOD GLUCOSE FINGER STICK BLOOD RADHA ([facility] GLUCOSE 9 Fernando 12:00:00 [facility]) Bmi is documented above BMI > NORMAL BASILIO AGUILAR ([facility] normal parameters and a DOCUMENTED W F/U 9 Fernando follow-up plan is PLAN 12:00:00 [facility]) Sign language or oral Sign language or GR GILLES ([facility] interpretive services, per Oral Interpretation [address] [place] [address] 15 minutes per 15 Minutes 12:00:00 [facility]) [facility] [place] [facility] Wrap Visit RADHA ([facility] (fqhc) visit, Established Patient 9 Fernando established patient; a 12:00:00 [facility] ethl-tu-pgzx encounter (one-on-one) between an established patient and a fqhc practitioner during which time one or more fqhc services are rendered and includes a typical bundle of medicare-covered services that would be furnished ranch supervisor to a patient receiving a fqhc visit Psychotherapy (30 Mins) N EXTGEN ([facility] E[facility]M [address] [place] [address] 12:00:00 [place]) AM EDT - 9 12:00:00 AM EDT OFFICE/OUTPATIENT VISIT, NEX TGEN ([facility] EST [address] [place] [address] 12:00:00 [place]) AM EDT - 9 12:00:00 AM EDT Individual Psychotherapy NEX TGEN ([facility] (30 Min) [address] [place] [address] 12:00:00 [place]) AM EDT - 9 12:00:00 AM EDT HEMOGLOBIN A1C HEMOGLOBIN A1C [facility]HA ([facility] 9 [place] 12:00:00 [facility]) METABOLIC PANEL COMPREHE METABOLIC PANEL RADHA ([facility] COMPREHE 9 [place] 12:00:00 [facility]) IMMUNOELECTROPHORESIS OTHER OTHER FLUIDS CHAMBERINO ([facility] FLUIDS CONCENTRATION (URINE..) WITH 9 [place] n CONCENTRATION 12:00:00 [facility]) LIPID PANEL LIPID PANEL [facility] ([facility] 9 [place] 12:00:00 [facility]) TSH-THYROID STIMULATING TSH-THYROID GREE NWAY ([facility] STIMULATING 9 Fernando 12:00:00 [facility]) LIPID PANEL LIPID PANEL [facility] ([facility] 9 [place] 12:00:00 [facility]) METABOLIC PANEL COMPREHE METABOLIC PANEL [facility] ([facility] COMPREHE 9 Fernando 12:00:00 [facility]) TSH-THYROID STIMULATING TSH-THYROID GREE NWAY ([facility] STIMULATING 9 Fernando 12:00:00 [facility]) HEMOGLOBIN A1C HEMOGLOBIN A1C [facility] ([facility] 9 [place] 12:00:00 [facility]) IMMUNOELECTROPHORESIS OTHER OTHER FLUIDS CHAMBERINO ([facility] FLUIDS CONCENTRATION (URINE..) WITH 9 [place] n CONCENTRATION 12:00:00 [facility]) Injection, insulin, per 5 Insulin (Injection) CHAMBERINO ([facility] units 9 [place] 12:00:00 [facility]) [facility] ([facility] (fqhc) visit, Established Patient 9 Fernando established patient; a 12:00:00 Johnny jennings medically-necessary, [facility]) wbbp-zk-trzy encounter (one-on-one) between an established patient and a fq practitioner during which time one or more [facility] services are rendered and includes a typical bundle of medicare-covered services that would be furnished ranch supervisor to a patient receiving a [facility] visit Administration of oral, ADMIN OF ORAL OR IM RADHA ([facility] intramuscular and/or MEDS 9 Fernando subcutaneous medication by 12:00:00 [facility]) agency/professional, per visit FINGER STICK BLOOD GLUCOSE FINGER STICK BLOOD RADHA ([facility] GLUCOSE 9 Fernando 12:00:00 [facility]) Psychotherapy (30 Mins) W N EXTGEN ([facility] E&[address] 12:00:00 [place]) EDT - 9 12:00:00 EDT OFFICE/OUTPATIENT VISIT, NEX SAMIA ([address] 12:00:00 [place]) EDT - 9 12:00:00 AM EDT No prior serious illness No prior serious RADHA ([facility] illness 9 Fernando 12:00:00 [facility]) Bmi is documented above BMI > NORMAL BASILIO AGUILAR ([facility] normal parameters and a DOCUMENTED W F/U 9 Fernando follow-up plan is PLAN 12:00:00 [facility]) FINGER STICK BLOOD GLUCOSE FINGER STICK BLOOD RADHA ([facility] GLUCOSE 9 Fernando 12:00:00 [facility]) Injection, insulin, per 5 Insulin (Injection) RADHA ([facility] Hospital units 9 Fernando 12:00:00 [facility]) Administration of oral, ADMIN OF ORAL OR IM CHAMBERINO ([facility] intramuscular and/or MEDS 9 Fernando subcutaneous medication by 12:00:00 [facility]) agency/professional, per visit [facility] FQ Wrap Visit RADHA ([facility] (fqhc) visit, Established Patient 9 Fernando established patient; a 12:00:00 [facility] qpeq-qy-vqrz encounter (one-on-one) between an established patient and a fqhc practitioner during which time one or more fqhc services are rendered and includes a typical bundle of medicare-covered services that would be furnished ranch supervisor to a patient receiving a fqhc visit Sign language or oral Sign language or GR EENABELARDO ([facility] interpretive services, per Oral Interpretation 9 Fernando 15 minutes per 15 Minutes 12:00:00 [facility]) Psychotherapy (30 Mins) W/ N EXTGEN ([facility] [address] 12:00:00 [place]) AM EDT - 9 12:00:00 AM EDT OFFICE/OUTPATIENT VISIT, NEX TGEN ([address] 12:00:00 [place]) EDT - 9 12:00:00 AM EDT URINALYSIS MICROSCOPIC URINALYSIS [facility] ([facility] MICROSCOPIC 9 Fernando 12:00:00 [facility]) URINE C AND S URINE C AND S CHAMBERINO ([facility] 9 Fernando 12:00:00 [facility]) EKG EKG CHAMBERINO ([facility] 9 Fernando 12:00:00 [facility]) [facility] FQHC Wrap Visit RADHA ([facility] (fqhc) visit, Established Patient 9 Fernando established patient; a 12:00:00 [place] medically-necessary, [facility]) apjp-dl-uiwt encounter (one-on-one) between an established patient and a fqhc practitioner during which time one or more fqhc services are rendered and includes a typical bundle of medicare-covered services that would be furnished ranch supervisor to a patient receiving a fqhc visit Bmi documented outside BMI OUTSIDE NORMAL RADHA ([facility] normal parameters, no RANGE - NO F/U PLAN 9 Fernando follow-up plan documented, 12:00:00 N eighborhood no reason given [facility]) Sign language or oral Translation by JACKELYN OVALLE ([facility] interpretive services, per Inhouse Staff 9 Fernando 15 minutes 12:00:00 [facility]) Bmi documented outside BMI OUTSIDE NORMAL CHAMBERINO ([facility] normal parameters, no RANGE - NO F/U PLAN 9 Fernando follow-up plan documented, 12:00:00 N eighborhood no reason given [facility] r) Sign language or oral Translation by JACKELYN OVALLE ([facility] interpretive services, per Inhouse Staff 9 Fernando 15 minutes 12:00:00 [facility]) PSA (PROSTATE SPECIFIC A PSA (PROSTATE GR EENWAY ([facility] SPECIFIC A 9 Fernando 12:00:00 [facility]) LIPID PANEL LIPID PANEL CHAMBERINO ([facility] 9 Fernando 12:00:00 [facility]) CULTURE FNGI MOLD/YEAST OTHER SOURCE (EXCEPT CHAMBERINO ([facility] PRSMPTV OTH XCPT BLOOD BLOOD) 9 Verno n 12:00:00 [facility]) URINALYSIS MICROSCOPIC URINALYSIS [facility] ([facility] MICROSCOPIC 9 Fernando 12:00:00 [facility]) HEMOGLOBIN A1C HEMOGLOBIN A1C CH[place]BER[place] ([facility] 9 Fernando 12:00:00 [facility]) HEPATITIS C ANTIBODY HEPATITIS C ANTIBODY CHAMBERINO ([facility] 9 Fernando 12:00:00 [facility]) METABOLIC PANEL COMPREHE METABOLIC PANEL CHAMBERINO ([facility] COMPREHE 9 Fernando 12:00:00 [facility]) DEBRIDEMENT NAILS SIX OR DEBRIDEMENT NAILS CHAMBERINO ([facility] MORE (Two Class B Findings) SIX OR MORE (Two 9 Fernando Class B Findings) 12:00:00 [facility]) TSH-THYROID STIMULATING TSH-THYROID JACKELYN OVALLE ([facility] STIMULATING 9 Fernando 12:00:00 [facility]) PSS-JNRW-JOQIFDRO PJN-UEOP-KQRPHDPO [facility] ([facility] 9 Fernando 12:00:00 [facility]) STOOL OCCULT BLOOD STOOL OCCULT BLOOD [facility] EN[facility] ([facility] 9 Fernando 12:00:00 [facility]) HEPATITIS B CORE ANTIBODY HEPATITIS B CORE CHAMBERINO ([facility] (HBcAb); TOTAL ANTIBODY ([facility]); 9 Fernando TOTAL 12:00:00 [facility]) HEPATITIS B SURFACE HEPATITIS B SURFACE G [facility] ([facility] ANTIBODY (HBsAb) ANTIBODY (HBsAb) 9 Fernando 12:00:00 [facility]) HEPATITIS B SURFACE AG HEPATITIS B SURFACE RADHA ([facility] AG 9 Fernando 12:00:00 [facility]) History of hypertension History of JACKELYN NWLINDA ([facility] hypertension 9 Fernando 12:00:00 [facility]) History of diabetes History of diabetes G [place] ([facility] mellitus mellitus 9 Fernando 12:00:00 [facility]) TSH-THYROID STIMULATING TSH-THYROID BASILIOE NWLINDA ([facility] STIMULATING 9 Fernando 12:00:00 [facility]) METABOLIC PANEL COMPREHE METABOLIC PANEL CHAMBERINO ([facility] COMPREHE 9 Fernando 12:00:00 [facility]) LIPID PANEL LIPID PANEL RADHA ([facility] 9 Fernando 12:00:00 [facility]) JNR-HOLE-KNAGXNZD SCP-XKBS-VBYTLFRQ [facility] ([facility] 9 Fernando 12:00:00 [facility]) CULTURE FNGI MOLD/YEAST OTHER SOURCE (EXCEPT RADHA ([facility] PRSMPTV OTH XCPT BLOOD BLOOD) 9 Verno n 12:00:00 [facility]) URINALYSIS MICROSCOPIC URINALYSIS [address] ([facility] MICROSCOPIC 9 Fernando 12:00:00 [facility]) HEMOGLOBIN A1C HEMOGLOBIN A1C RADHA ([facility] 9 Fernando 12:00:00 [facility]) STOOL OCCULT BLOOD STOOL OCCULT BLOOD [facility] EN[facility] ([facility] 9 Fernando 12:00:00 [facility]) PSA (PROSTATE SPECIFIC A PSA (PROSTATE GR EENWAY ([facility] SPECIFIC A 9 Fernando 12:00:00 [facility]) HEPATITIS C ANTIBODY HEPATITIS C ANTIBODY RADHA ([facility] 9 Fernando 12:00:00 [facility]) HEPATITIS B SURFACE AG HEPATITIS B SURFACE [facility] ([facility] 9 [place] 12:00:00 [facility]) HEPATITIS B SURFACE HEPATITIS B SURFACE G REENWAY ([facility] ANTIBODY (HBsAb) ANTIBODY (HBsAb) 9 Fernando 12:00:00 [facility]) HEPATITIS B CORE ANTIBODY HEPATITIS B CORE CHAMBERINO ([facility] (HBc[facility]); TOTAL ANTIBODY ([facility]); 9 Fernando TOTAL 12:00:00 [facility]) Psychotherapy (30 Mins) W/ N EXTGEN ([facility] [address] 12:00:00 [place]) EDT - 9 12:00:00 AM EDT OFFICE/OUTPATIENT VISIT, NEX TGEN ([address] 12:00:00 [place]) EDT - 9 12:00:00 AM EDT No prior serious illness No prior serious RADHA ([facility] illness 9 Fernando 12:00:00 [facility]) STOOL OCCULT BLOOD STOOL OCCULT BLOOD [place] EN[place] ([facility] 9 Fernando 12:00:00 [facility]) Administration of oral, ADMIN OF ORAL OR IM CHAMBERINO ([facility] intramuscular and/or MEDS 9 Fernando subcutaneous medication by 12:00:00 [facility]) agency/professional, per visit [facility] FQHC Wrap Visit CHAMBERINO ([facility] (fqhc) visit, Established Patient 9 Fernando established patient; a 12:00:00 [facility]) rhef-sa-vvbs encounter (one-on-one) between an established patient and a fq practitioner during which time one or more fq services are rendered and includes a typical bundle of medicare-covered services that would be furnished ranch supervisor to a patient receiving a fq visit FERRITIN FERRITIN RADHA ([facility] 9 Fernando 12:00:00 [facility]) IRON BINDING IRON BINDING CHAMBERINO ([facility] 9 Fernando 12:00:00 [facility]) IRON IRON CHAMBERINO ([facility] 9 Fernando 12:00:00 [facility]) Bmi documented outside BMI OUTSIDE NORMAL RADHA ([facility] normal parameters, no RANGE - NO F/U PLAN 9 Fernando follow-up plan documented, 12:00:00 [facility] given [facility] Sign language or oral Sign language or GR EENWAY ([facility] interpretive services, per Oral Interpretation 9 Fernando 15 minutes per 15 Minutes 12:00:00 [facility]) PSA (PROSTATE SPECIFIC A PSA (PROSTATE GR EENWAY ([facility] SPECIFIC A 9 Fernando 12:00:00 [facility]) LIPID PANEL LIPID PANEL RADHA ([facility] 9 Fernando 12:00:00 [facility]) TSH-THYROID STIMULATING TSH-THYROID GREE NWAY ([facility] STIMULATING 9 Fernando 12:00:00 [facility]) IMMUNOELECTROPHORESIS OTHER OTHER FLUIDS CHAMBERINO ([facility] FLUIDS CONCENTRATION (URINE..) WITH 9 Verno n CONCENTRATION 12:00:00 [facility]) HEMOGLOBIN A1C HEMOGLOBIN A1C CHAMBERINO ([facility] 9 Fernando 12:00:00 [facility]) FINGER STICK BLOOD GLUCOSE FINGER STICK BLOOD CHAMBERINO ([facility] GLUCOSE 9 Fernando 12:00:00 [facility]) Injection, insulin, per 5 Insulin (Injection) CHAMBERINO ([facility] units 9 Fernando 12:00:00 [facility]) Bmi documented outside BMI OUTSIDE NORMAL RADHA ([facility] normal parameters, no RANGE - NO F/U PLAN 9 Fernando follow-up plan documented, 12:00:00 [facility] no reason given AM [facility]) Sign language or oral Sign language or GR EENWAY ([facility] interpretive services, per Oral Interpretation 9 Fernando 15 minutes per 15 Minutes 12:00:00 [facility]) Administration of oral, ADMIN OF ORAL OR IM CHAMBERINO ([facility] intramuscular and/or MEDS 9 Fernando subcutaneous medication by 12:00:00 [facility]) agency/professional, per visit Injection, insulin, per 5 Insulin (Injection) CHAMBERINO ([facility] units 9 Fernando 12:00:00 [facility]) [facility] ([facility] (fqhc) visit, Established Patient 9 Fernando established patient; a 12:00:00 [place] medically-necessary, [facility]) adme-td-qezt encounter (one-on-one) between an established patient and a [facility] practitioner during which time one or more [facility] services are rendered and includes a typical bundle of medicare-covered services that would be furnished ranch supervisor to a patient receiving a [facility] visit Bmi is documented above BMI > NORMAL [facility] ([facility] normal parameters and a DOCUMENTED W F/U [address] [place] [id number] follow-up plan is PLAN 12:00:00 [facility]) FINGER STICK BLOOD GLUCOSE FINGER STICK BLOOD CHAMBERINO ([facility] GLUCOSE 9 Fernando 12:00:00 [facility]) Injection, insulin, per 5 Insulin (Injection) CHAMBERINO ([facility] units 9 Fernando 12:00:00 [facility]) TSH-THYROID STIMULATING TSH-THYROID GREE NWAY ([facility] STIMULATING 9 Fernando 12:00:00 [facility]) THYROXINE FREE (FT4) THYROXINE FREE (FT4) CHAMBERINO ([facility] 9 Fernando 12:00:00 [facility]) LIPID PANEL LIPID PANEL CHAMBERINO ([place] [address] Fernando 12:00:00 [facility]) HEMOGLOBIN A1C HEMOGLOBIN A1C CHAMBERINO ([facility] 9 Fernando 12:00:00 [facility]) URINALYSIS MICROSCOPIC URINALYSIS [facility] ([facility] MICROSCOPIC 9 Fernando 12:00:00 [facility]) METABOLIC PANEL COMPREHE METABOLIC PANEL CHAMBERINO ([facility] COMPREHE 9 Fernando 12:00:00 [facility]) HEPATIC FUNCTION PANEL HEPATIC FUNCTION G REENWAY ([facility] PANEL 9 Fernando 12:00:00 [facility]) HEPATITIS Be ANTIGEN HEPATITIS Be ANTIGEN CHAMBERINO ([facility] (HBeAG) (HBeAG) 9 Fernando 12:00:00 [facility]) HEPATITIS B CORE ANTIBODY HEPATITIS B CORE CHAMBERINO ([facility] ([facility]); TOTAL ANTIBODY ([facility]); 9 Fernando TOTAL 12:00:00 [facility]) HEPATITIS B SURFACE [facility] ANTIBODY (HBs[facility]) ANTIBODY (HBs[facility]) 9 Fernando 12:00:00 [facility]) HEPATITIS C ANTIBODY HEPATITIS C ANTIBODY CHAMBERINO ([facility] 9 Fernando 12:00:00 [facility]) SIR-FAKZ-[id number] PSW-CDNL-UAERTVRT [facility] ([facility] 9 Fernando 12:00:00 [facility]) Administration of oral, ADMIN OF ORAL OR IM CHAMBERINO ([facility] intramuscular and/or MEDS 9 Fernando subcutaneous medication by 12:00:00 [facility]) agency/professional, per visit Psychotherapy (30 Mins) W/ N EXTGEN ([facility] E&M [address] [place] [address] 12:00:00 [place]) EDT - 9 12:00:00 AM EDT OFFICE/OUTPATIENT VISIT, NEX TGEN ([address] 12:00:00 [place]) EDT - 9 12:00:00 AM EDT Individual Psychotherapy NEX TGEN ([facility] (30 Min) [address] [place] [address] 12:00:00 [place]) AM EST - 9 12:00:00 AM EST OFFICE/OUTPATIENT VISIT, NEX TGEN ([address] 12:00:00 [place]) EST - 8 12:00:00 AM EST DEBRIDEMENT NAILS SIX OR DEBRIDEMENT NAILS CHAMBERINO ([facility] MORE SIX OR MORE 8 Fernando 12:00:00 [facility]) [facility] FQHC Wrap Visit CHAMBERINO ([facility] (fqhc) visit, Established Patient 8 Fernando established patient; a 12:00:00 [facility]) ogrp-mp-jxqk encounter (one-on-one) between an established patient and a fqhc practitioner during which time one or more fq services are rendered and includes a typical bundle of medicare-covered services that would be furnished ranch supervisor to a patient receiving a fq visit Advance healthcare Advance healthcare [place] ([facility] directive not on file directive not on 7 Ve rnon file 12:00:00 [facility]) OFFICE/OUTPATIENT VISIT, NEX TGEN ([address] 12:00:00 [place]) AM EDT - 4 12:00:00 AM EDT OFFICE/OUTPATIENT VISIT, NEX TGEN ([address] 12:00:00 [place]) AM EDT - 4 12:00:00 AM EDT OFFICE/OUTPATIENT VISIT, NEX TGEN ([address] 12:00:00 [place]) EDT - 4 12:00:00 AM EDT MEASURE BLOOD OXYGEN LEVEL N EXTGEN ([address] 12:00:00 [place]) EDT - 4 12:00:00 AM EDT No history of No history of RADHA ([facility] hyperlipidemia hyperlipidemia 4 Fernando 12:00:00 [facility]) History of type 2 diabetes History of type 2 CHAMBERINO ([facility] mellitus diabetes mellitus 4 Fernando 12:00:00 [facility]) History of essential History of essential CHAMBERINO ([facility] hypertension hypertension 4 Fernando 12:00:00 [facility]) History of coronary artery History of coronary CHAMBERINO ([facility] disease artery disease 4 Fernando 12:00:00 [facility]) Pt. has not had a Pt. has not had a [facility] ([facility] hysterectomy hysterectomy 4 Fernando 12:00:00 [facility]) No Surgery No Surgery RADHA ([facility] 4 Fernando 12:00:00 [facility]) No past medical history No past medical G REENWAY ([facility] reported history reported 4 Fernando 12:00:00 [facility]) History of No carotid History of No [address] ([facility] bruits carotid bruits 4 Efrnando 12:00:00 [facility]) History of Eyes: normal History of Eyes: RADHA ([facility] normal 4 Fernando 12:00:00 [facility]) No history of thyroid No history of [facility] ([facility] surgery thyroid surgery 4 Fernando 12:00:00 [facility]) No history of prostatectomy No history of RADHA ([facility] prostatectomy 4 Fernando 12:00:00 [facility]) No history of enteroscopic No history of RADHA ([facility] polypectomy enteroscopic 4 Fernando polypectomy 12:00:00 [facility]) No history of appendectomy No history of RADHA ([facility] appendectomy 4 Fernando 12:00:00 [facility]) Recent change in medical Recent change in RADHA ([facility] history medical history 4 Fernando 12:00:00 [facility]) Prior serious illness Prior serious [facility] [address] ([facility] illness 4 Fernando 12:00:00 [facility]) OFFICE/OUTPATIENT VISIT, NEX TGEN ([address] 12:00:00 [place]) AM EDT - 4 12:00:00 EDT OFFICE/OUTPATIENT VISIT, NEX TGEN ([address] 12:00:00 [place]) AM EDT - 4 12:00:00 EDT Current medication seems to Current medication RADHA ([facility] be helping seems to be helping 4 Fernando 12:00:00 [facility]) hyperlipidemia, vertigo, hyperlipidemia, RADHA ([facility] [place], arthritis, back pain vertigo, UT, 4 Gaurav non arthritis, back pain 12:00:00 [facility]) History of hypertension History of JACKELYN OVALLE ([facility] hypertension 4 Fernando 12:00:00 [facility]) History of diabetes History of diabetes Cassidy LEA ([facility] mellitus mellitus 4 Fernando 12:00:00 Neighborhood [facility]) History of surgery s/o History of surgery RADHA ([facility]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 ID Date Data Source [id number] 08/30/2019 12:00:00 [facility] Name Value Range Interpretation Description Data Source(s ) Supporting Code Document(s ) Microalbumin 281.5 Albumin, CHAMBERINO [Mass/volume] ug/mL Urine ([facility] in Urine [facility]) ID Date Data Source [id number] 08/30/2019 12:00:00 AM T CHAMBERINO ([facility]) Name Value Range Interpretation Description Data Source(s ) Supporting Code Document(s ) Prostate 2.1 Prostate RADHA ([place] specific Ag ng/mL Specific Ag, Fernando [Mass/volum Serum Neighborhood e] in [facility]) or Plasma Note: Alejandrina ECLIA methodology.According to the [employer] [employer], Serum PSA shoulddecrease and remain at undetec table levels after radicalprostatectomy. The AUA defines biochemical recurrence as an initialPSA value 0.2 ng/mL or greater followed by a subsequent confirmatoryPSA value 0.2 ng/mL or greater.Values obtained with different assay methods or kits can not be usedinterchangeably. Results cannot be interpreted as absolute evidenceof the p resence or absence of malignant disease. ID Date Data Source [id number] 08/30/2019 12:00:00 AM EDT CHAMBERINO ([facility]) Name Value Range Interpretation Description Data Source(s ) Supporting Code Document(s ) Thyrotropin 3.770 TSH RADHA ([place] [Units/volume] uIU/mL [place] in Serum or Neighborhood Plasma by [facility]) Detection limit <= 0.05 mIU/L ID Date Data Source [id number] 08/30/2019 12:00:00 AM EDT RADHA ([facility]) Name Value Range Interpretation Description Data Source(s ) Supporting Code Document(s ) Hemoglobin 10.3 % Above high normal Hemoglobin A1c GREEN AY ([facility] A1c/Hemoglobi Fernando n.total in [facility] Blood [facility]) Note: Prediabetes: 5.7 - 6.4 Diabetes: >6.4 Glycemic control for adults with diabetes: <7.0 ID Date Data Source [id number] 08/30/2019 12:00:00 AM EDT RADHA ([facility]) Name Value Range Interpretation Description Data Source(s ) Supporting Code Document(s ) Cholesterol 165 Cholesterol, RADHA [Mass/volume] mg/dL Total (Annia King in Serum or [facility] Plasma [facility]) Triglyceride 191 Above high Triglycerides RADHA [Mass/volume] mg/dL normal (Annia King in Serum or [facility]) Cholesterol in 40 HDL Cholesterol RADHA HDL mg/dL (Annia King [Mass/volume] [facility] in Serum or [facility] [place]) Plasma Laboratory N/A Comment: RADHA comment [Text] (Annia King in Report [facility]) Cholesterol in 2.2 LDL/HDL Ratio RADHA LDL/Cholestero ratio (Annia King l in HDL [Mass Neighborhood Ratio] in [facility]) Serum or Plasma Note: LDL/HDL Ratio Men Women 1/2 Avg.Risk 1.0 1.5 Avg.Risk 3.6 3.2 2X Avg.Risk 6.2 5.0 3X Avg.Risk 8.0 6.1 Cholesterol in VLDL 38 mg/dL VLDL Cholesterol Maverick RADHA ([place] [Mass/volume] in Serum or [facility] Plasma by calculation Center) Cholesterol in LDL 87 mg/dL LDL Cholesterol Calc RADHA ([place] [Mass/volume] in Serum or [facility] Plasma by calculation Center) ID Date Data Source [id number] 08/30/2019 12:00:00 AM EDT RADHA ([facility]) Name Value Range Interpretation Description Data Sup porting Code Source(s) Document(s ) Calcium 9.5 Calcium RADHA [Mass/volume] in mg/dL (Annia King Serum or Plasma [facility]) Glucose 237 Above high Glucose RADHA [Mass/volume] in mg/dL normal ([facility] or [facility]) Urea nitrogen 16 BUN RADHA [Mass/volume] in mg/dL ([facility] or [facility]) Protein 7.5 Protein, RADHA [Mass/volume] in g/dL Total ([facility] or [facility]) Albumin 4.6 Albumin RADHA [Mass/volume] in g/dL ([facility]) Bilirubin.total 0.2 Bilirubin, RADHA [Mass/volume] in mg/dL Total ([facility] or [facility]) Aspartate 16 IU/L AST (SGOT) RADHA aminotransferase ([place] [Enzymatic Neighborhood activity/volume] [facility] in Serum or [facility]) Alkaline 61 IU/L Alkaline RADHA phosphatase Phosphatase ([place] [Enzymatic [facility] activity/volume] [facility] in Serum or [facility]) Potassium 5.2 Potassium RADHA [Moles/volume] in mmol/L ([facility] or [facility]) Sodium 139 Sodium RADHA [Moles/volume] in mmol/L ([facility] or [facility]) Creatinine 0.86 Creatinine RADHA [Mass/volume] in mg/dL ([facility]) Chloride 104 Chloride RADHA [Moles/volume] in mmol/L ([facility] or [facility]) Carbon dioxide, 19 Below low normal Carbon GREENWA Y total mmol/L Dioxide, ([place] [Moles/volume] in Total [facility]) Alanine 25 IU/L ALT (SGPT) RADHA aminotransferase (Bruin [Enzymatic Neighborhood activity/volume] Health in Serum or [facility]) Globulin 2.9 Globulin, RADHA [Mass/volume] in g/dL Total (Bruin Serum by [facility]) Urea 19 BUN/Creatinin RADHA nitrogen/Creatinin e Ratio ([facility] on e [Mass Ratio] in [facility]) eGFR If NonAfricn 88 eGFR If RADHA Am mL/min/ NonAfricn Am (Bruin 1.73 [facility]) Albumin/Globulin 1.6 A/G Ratio RADHA [Mass Ratio] in ([facility] or [facility]) eGFR If Africn Am 102 eGFR If RADHA mL/min/ Africn Am (Annia King 1.73 [facility]) ID Date Data Source [id number] 03/23/2019 11:29:00 AM EST RADHA ([facility]) Name Value Range Interpretation Description Data Source(s ) Supporting Code Document(s ) Thyrotropin 3.830 TSH RADHA ([facility] [Units/volume] uIU/mL Fernando in Serum or Neighborhood Plasma by [facility] [place]) Detection limit <= 0.05 mIU/L ID Date Data Source [id number] 03/23/2019 11:29:00 AM EST RADHA ([facility]) Name Value Range Interpretation Description Data Source(s ) Supporting Code Document(s ) Hemoglobin 9.5 % Above high normal Hemoglobin A1c [facility] AY ([facility] A1c/Hemoglobi Fernando n.total in [facility]) Note: Prediabetes: 5.7 - 6.4 Diabetes: >6.4 Glycemic control for adults with diabetes: <7.0 ID Date Data Source [id number] 03/23/2019 11:29:00 AM EST RADHA ([facility]) Name Value Range Interpretation Description Data Source(s ) Supporting Code Document(s ) Cholesterol 166 Cholesterol, RADHA [Mass/volume] mg/dL Total (Annia King in Serum or [facility] Plasma [facility]) Cholesterol in 39 Below low normal HDL Cholesterol GR EENWAY HDL mg/dL (Bruin [Mass/volume] [facility] in Serum or Health Center) Plasma Triglyceride 161 Above high Triglycerides CHAMBERINO [Mass/volume] mg/dL normal (Annia King in Serum or [facility] Plasma [facility]) Laboratory N/A Comment: RADHA comment [Text] (Annia King in Report [facility] Narrative [facility]) Cholesterol in 32 VLDL RADHA VLDL mg/dL Cholesterol Maverick (Bruin [Mass/volume] Neighborhood in Serum or Health Center) Plasma by calculation Cholesterol in 2.4 LDL/HDL Ratio RADHA LDL/Cholestero ratio (Annia King l in HDL [Mass Neighborhood Ratio] in [facility] [place]) Serum or Plasma Note: LDL/HDL Ratio Men Women 1/2 Avg.Risk 1.0 1.5 Avg.Risk 3.6 3.2 2X Avg.Risk 6.2 5.0 3X Avg.Risk 8.0 6.1 Cholesterol in LDL 95 mg/dL LDL Cholesterol Calc RADHA (Bruin [Mass/volume] in Serum or [facility] Plasma by [facility]) ID Date Data Source [id number] 03/23/2019 11:29:00 AM EST RADHA ([facility]) Name Value Range Interpretation Description Data Sup porting Code Source(s) Document(s ) Calcium 9.3 Calcium RADHA [Mass/volume] in mg/dL ([place] Serum or [facility]) Glucose 174 Above high Glucose RADHA [Mass/volume] in mg/dL normal (Bruin Serum or [facility]) Protein 7.4 Protein, RADHA [Mass/volume] in g/dL Total ([facility]) Albumin 4.6 Albumin RADHA [Mass/volume] in g/dL ([facility] or [facility]) Urea nitrogen 17 BUN RADHA [Mass/volume] in mg/dL ([facility]) Aspartate 12 IU/L AST (SGOT) RADHA aminotransferase (Bruin [Enzymatic Neighborhood activity/volume] Health in Serum or Plasma Center) Alkaline 51 IU/L Alkaline CHAMBERINO phosphatase Phosphatase (Bruin [Enzymatic Neighborhood activity/volume] [facility] in Serum or [facility] [place]) Bilirubin.total 0.3 Bilirubin, RADHA [Mass/volume] in mg/dL Total ([facility] or [facility]) Potassium 4.0 Potassium RADHA [Moles/volume] in mmol/L ([facility] Serum [facility]) Sodium 138 Sodium RADHA [Moles/volume] in mmol/L ([facility]) Chloride 101 Chloride RADHA [Moles/volume] in mmol/L ([facility] Serum [facility]) Alanine 17 IU/L ALT (SGPT) RADHA aminotransferase (Bruin [Enzymatic Neighborhood activity/volume] Health in Serum or [facility] [place]) Creatinine 1.01 Creatinine RADHA [Mass/volume] in mg/dL ([facility] or [facility]) Globulin 2.8 Globulin, RADHA [Mass/volume] in g/dL Total (Bru[place] Serum by [facility]) Carbon dioxide, 21 Carbon RADHA total mmol/L Dioxide, (Bruin [Moles/volume] in Total [facility] Serum or [facility]) Urea 17 BUN/Creatinin RADHA nitrogen/Creatinin e Ratio ([facility] in [facility] Serum or [facility]) Albumin/Globulin 1.6 A/G Ratio RADHA [Mass Ratio] in ([place] Serum or Plasma [facility]) eGFR If Africn Am 87 eGFR If RADHA mL/min/ Africn Am ([address]) eGFR If NonAfricn 76 eGFR If RADHA Am mL/min/ NonAfricn Am ([address]) ID Date Data Source [id number] 10/18/2018 10:58:00 AM EDT RADHA ([facility]) Name Value Range Interpretation Description Data Source(s ) Supporting Code Document(s ) Ferritin 63 ng/mL Ferritin, RADHA ([place] [Mass/volum Serum Fernando e] in Serum [facility] or [facility]) ID Date Data Source [id number] 10/18/2018 10:58:00 AM EDT RADHA ([facility]) Name Value Range Interpretation Description Data Source(s ) Supporting Code Document(s ) Microalbumin 109.6 Albumin, CHAMBERINO [Mass/volume] ug/mL Urine (Bruin in Urine [facility]) ID Date Data Source [id number] 10/18/2018 10:58:00 AM EDT RADHA ([facility]) Name Value Range Interpretation Description Data Source(s ) Supporting Code Document(s ) Thyrotropin 3.530 TSH CHAMBERINO ([facility] [Units/volume] uIU/mL Fernando in Serum or [facility] Plasma [facility]) Detection limit <= 0.05 mIU/L ID Date Data Source [id number] 10/18/2018 10:58:00 AM EDT RADHA ([facility]) Name Value Range Interpretation Description Data Source(s ) Supporting Code Document(s ) Hemoglobin 9.5 % Above high normal Hemoglobin A1c ASHLI LINDA ([facility] A1c/Hemoglobi Fernando n.total in [facility]) Note: Prediabetes: 5.7 - 6.4 Diabetes: >6.4 Glycemic control for adults with diabetes: <7.0 ID Date Data Source [id number] 10/18/2018 10:58:00 AM EDT RADHA ([facility]) Name Value Range Interpretation Description Data Source(s ) Supporting Code Document(s ) Iron 88 ug/dL Iron RADHA ([facility] [Mass/volu Fernando me] in [facility] Serum or Health Center) Plasma Note: Reference Range:>=10y: 61 - 157 ID Date Data Source [id number] 10/18/2018 10:58:00 AM EDT RADHA ([facility]) Name Value Range Interpretation Description Data Source(s ) Supporting Code Document(s ) Iron 86 ug/dL Iron RADHA [Mass/volume] ([place] in Serum or [facility] Plasma [facility]) Iron binding 330 Iron RADHA capacity ug/dL Bind.Cap.(TIBC (Bruin [Mass/volume] ) [facility] in Serum or Health Center) Plasma Iron binding 244 UIBC RADHA capacity.unsa ug/dL (Bruin turated [facility] [Mass[facility]] [facility]) in Serum or Plasma Iron 26 % Iron RADHA saturation Saturation (Bruin [Mass Neighborhood Fraction] in [facility]) Serum or Plasma ID Date Data Source [id number] 10/18/2018 10:58:00 AM EDT RADHA ([facility]) Name Value Range Interpretation Description Data Source(s ) Supporting Code Document(s ) Cholesterol 183 Cholesterol, CHAMBERINO [Mass/volume] mg/dL Total (Bruin in Serum or [facility] Plasma [facility]) Triglyceride 192 Above high Triglycerides CHAMBERINO [Mass/volume] mg/dL normal ([place] in Serum or [facility] Plasma [facility]) Cholesterol in 38 VLDL CHAMBERINO VLDL mg/dL Cholesterol Maverick (Bruin [Mass/volume] [facility] in Serum or Health Center) Plasma by calculation Cholesterol in 2.7 LDL/HDL Ratio RADHA LDL/Cholestero ratio (Bruin l in HDL [Mass Neighborhood Ratio] in [facility]) Serum or Plasma Note: LDL/HDL Ratio Men Women 1/2 Avg.Risk 1.0 1.5 Avg.Risk 3.6 3.2 2X Avg.Risk 6.2 5.0 3X Avg.Risk 8.0 6.1 Laboratory comment N/A Comment: RADHA (Esther horta [Text] in Report [facility]) Cholesterol in HDL 39 mg/dL Below low HDL Cholesterol [address] ([facility] [Mass/volume] in normal [facility] Serum or [facility]) Cholesterol in LDL 106 mg/dL Above high LDL Cholesterol JACKELYN NWLINDA ([facility] [Mass/volume] in normal [facility] Serum or Plasma [facility]) calculation ID Date Data Source [id number] 10/18/2018 10:58:00 AM EDT RADHA ([facility]) Name Value Range Interpretation Description Data Sup porting Code Source(s) Document(s ) Urea nitrogen 29 Above high BUN RADHA [Mass/volume] in mg/dL normal ([place] Serum or [facility]) Calcium 9.5 Calcium RADHA [Mass/volume] in mg/dL ([facility]) Protein 8.4 Protein, RADHA [Mass/volume] in g/dL Total ([facility] or [facility]) Glucose 222 Above high Glucose RADHA [Mass/volume] in mg/dL normal ([facility] or [facility]) Alkaline 64 IU/L Alkaline RADHA phosphatase Phosphatase (Bruin [Enzymatic Neighborhood activity/volume] [facility] in Serum or [facility] [place]) Bilirubin.total 0.3 Bilirubin, RADHA [Mass/volume] in mg/dL Total ([facility] or [facility]) Albumin 5.0 Above high Albumin RADHA [Mass/volume] in g/dL normal ([facility]) Aspartate 16 IU/L AST (SGOT) RADHA aminotransferase (Bruin [Enzymatic Neighborhood activity/volume] [facility] in Serum or [facility] [place]) Creatinine 1.28 Above high Creatinine RADHA [Mass/volume] in mg/dL normal ([facility] or [facility]) Potassium 5.3 Above high Potassium RADHA [Moles/volume] in mmol/L normal ([facility] Serum or [facility]) Chloride 100 Chloride RADHA [Moles/volume] in mmol/L ([facility]) Sodium 139 Sodium RADHA [Moles/volume] in mmol/L ([facility]) Globulin 3.4 Globulin, RADHA [Mass/volume] in g/dL Total (Bruin Serum by [facility]) Alanine 27 IU/L ALT (SGPT) RADHA aminotransferase (Bruin [Enzymatic Neighborhood activity/volume] Health in Serum or [facility] [place]) Carbon dioxide, 19 Below low normal Carbon GREENWA Y total mmol/L Dioxide, (Bruin [Moles/volume] in Total [facility]) Urea 23 BUN/Creatinin CHAMBERINO nitrogen/Creatinin e Ratio ([facility] on e [Mass Ratio] in [facility]) Albumin/Globulin 1.5 A/G Ratio RADHA [Mass Ratio] in (Bruin Serum or [facility]) eGFR If Africn Am 66 eGFR If RADHA mL/min/ Africn Am ([address]) eGFR If NonAfricn 57 Below low normal eGFR If [address] Am mL/min/ NonAfricn Am ([address]) ID Date Data Source [id number] 08/26/2018 12:00:00 AM EDT CHAMBERINO ([facility]) Name Value Range Interpretation Description Data Sup porting Code Source(s) Document(s ) Bacteria Final report Abnormal Urine CHAMBERINO identified (applies to Culture, (Bruin in Urine by non-numeric Routine [facility] Culture results) [facility]) Bacteria Escherichia Abnormal Result 1 RADHA identified coli (applies to (Bruin in Urine by non-numeric [facility] Culture results) [facility]) Note: 25,000-50,000 colony forming units per mLCefazolin <=4 ug/mLCefazolin with an ROWDY <=16 predicts susceptibility to the oral agentscefaclor, cefdinir, cefpodoxime, cefprozil, cefuroxime, cephalexin,and lo racarbef when used for therapy of uncomplicated urinary tractinfections du e to E. coli, Klebsiella pneumoniae, and Proteusmirabilis. Other Antibiotic [facility] Antimicrobial CHAMBERINO (Bruin [Susceptibility] Susceptibility [facility]) Note: S = Susceptible; I = Inte rmediate; R = Resistant P = Positive; N = Negative UT CS are expressed in micrograms per mL Antibiotic RSLT#1 RSL T#2 RSLT#3 RSLT#4Amoxicillin/Clavulanic Acid SAmpicillin RCefepime SCeftriaxone SCefuroxime SCiprofloxacin SErtapenem SGentami kapil SImipenem SLevofloxacin SMeropenem SNitrofurantoin SPiperac illin/Tazobactam STetracycline STobramycin STrimethoprim/Sulfa R ID Date Data Source [id number] 08/15/2018 11:48:19 AM EDT GREENWA Y (Annia King [id number] [facility]) Name Value Range Interpretation Description Data Source(s ) Supporting Code Document(s ) No Results No Results No Results RADHA ([facility] Recorded For [facility]) ID Date Data Source [id number] 08/12/2018 03:05:52 PM EDT GREENWA Y (Bruin [id number] [facility]) Name Value Range Interpretation Description Data Source(s ) Supporting Code Document(s ) No Results No Results No Results RADHA ([facility] Recorded For [facility]) ID Date Data Source [id number] 08/12/2018 03:04:12 PM EDT GREENWA Y (Bruin [id number] [facility]) Name Value Range Interpretation Description Data Source(s ) Supporting Code Document(s ) No Results No Results No Results RADHA ([facility] Recorded For [facility]) ID Date Data Source [id number] 08/12/2018 03:04:00 PM EDT RADHA ([facility]) Name Value Range Interpretation Description Data Source(s ) Supporting Code Document(s ) Bacteria Final Urine RADHA identified in report Culture, (Annia King Urine by Routine [facility]) Bacteria No growth Result 1 RDAHA identified in (Bruin Urine by [facility]) ID Date Data Source [id number] 08/12/2018 03:04:00 PM EDT RADHA ([facility]) Name Value Range Interpretation Description Data Source(s ) Supporting Code Document(s ) Hepatitis B Negative Hep B Core RADHA virus core Ab Ab, Tot (Annia King [Presence] in [facility] Serum or Health Center) Plasma by Immunoassay ID Date Data Source [id number] 08/12/2018 03:04:00 PM EDT RADHA ([facility]) Name Value Range Interpretation Description Data Source(s ) Supporting Code Document(s ) Hepatitis B Negative HBsAg Screen RADHA virus surface (Bruin Ag [Presence] Neighborhood in Serum or [facility]) Plasma by Immunoassay ID Date Data Source [id number] 08/12/2018 03:04:00 PM EDT RADHA ([facility]) Name Value Range Interpretation Description Data Source(s ) Supporting Code Document(s ) Microalbumin 114.6 Albumin, RADHA [Mass/volume] ug/mL Urine (Bruin in Urine [facility]) ID Date Data Source [id number] 08/12/2018 03:04:00 PM EDT RADHA ([facility]) Name Value Range Interpretation Description Data Source(s ) Supporting Code Document(s ) Hepatitis C <0.1 Hep C Virus RADHA virus Ab s/co_rat Ab (Bruin Signal/Cutoff io Neighborhood in Serum or Health Center) Plasma by Immunoassay Note: Negative: < 0.8 Indeterm inate: 0.8 - 0.9 Positive: > 0.9 The CDC recommends that a positive HCV antibody result be followed up with a HCV Nucleic Acid Amplification test (72969 3). ID Date Data Source [id number] 08/12/2018 03:04:00 PM EDT RADHA ([facility]) Name Value Range Interpretation Description Data Source(s ) Supporting Code Document(s ) Prostate 1.1 Prostate RADHA ([place] specific Ag ng/mL Specific Ag, Fernando [Mass/volum Serum Neighborhood e] in [facility]) or Plasma Note: Alejandrina ECLIA methodology.According to the [employer] [employer], Serum PSA shoulddecrease and remain at undetec table levels after radicalprostatectomy. The AUA defines biochemical recurrence as an initialPSA value 0.2 ng/mL or greater followed by a subsequent confirmatoryPSA value 0.2 ng/mL or greater.Values obtained with different assay methods or kits can not be usedinterchangeably. Results cannot be interpreted as absolute evidenceof the p resence or absence of malignant disease. ID Date Data Source [id number] 08/12/2018 03:04:00 PM EDT RADHA ([facility]) Name Value Range Interpretation Description Data Source(s ) Supporting Code Document(s ) Hepatitis B Non Hep B Surface RADHA virus Reactive Ab, Qual (Bruin surface Ab [facility] in Serum Note: Non R eactive: Inconsistent with immunity, less th an 10 mIU/mL Reactive: Consistent with immunity, greater than 9.9 mIU/mL ID Date Data Source [id number] 08/12/2018 03:04:00 PM EDT RADHA ([facility]) Name Value Range Interpretation Description Data Source(s ) Supporting Code Document(s ) Thyrotropin 1.820 TSH RADHA ([facility] [Units/volume] uIU/mL Fernando in Serum or [facility] Plasma by [facility]) Detection limit <= 0.05 mIU/L ID Date Data Source [id number] 08/12/2018 03:04:00 PM EDT RADHA ([facility]) Name Value Range Interpretation Description Data Source(s ) Supporting Code Document(s ) Hemoglobin 11.2 % Above high normal Hemoglobin A1c ASHLI LINDA ([facility] A1c/Hemoglobi Fernando n.total in [facility]) Note: Prediabetes: 5.7 - 6.4 Diabetes: >6.4 Glycemic control for adults with diabetes: <7.0 ID Date Data Source [id number] 08/12/2018 03:04:00 PM EDT RADHA ([facility]) Name Value Range Interpretation Description Data Source(s ) Supporting Code Document(s ) Cholesterol 173 Cholesterol, RADHA [Mass/volume] mg/dL Total (Bruin in Serum or [facility] Plasma [facility]) Triglyceride 349 Above high Triglycerides RADHA [Mass/volume] mg/dL normal (Bruin in Serum or [facility]) Cholesterol in 35 Below low normal HDL Cholesterol GR EENWAY HDL mg/dL (Bruin [Mass/volume] [facility] in Serum or [facility]) Plasma Cholesterol in 70 Above high VLDL RADHA VLDL mg/dL normal Cholesterol Maverick (Bruin [Mass/volume] [facility] in Serum or [facility]) Plasma by calculation Laboratory N/A Comment: RADHA comment [Text] (Bruin in Report [facility]) Cholesterol in 1.9 LDL/HDL Ratio RADHA LDL/Cholestero ratio (Bruin l in HDL [Mass Neighborhood Ratio] in [facility]) Serum or Plasma Note: LDL/HDL Ratio Men Women 1/2 Avg.Risk 1.0 1.5 Avg.Risk 3.6 3.2 2X Avg.Risk 6.2 5.0 3X Avg.Risk 8.0 6.1 Cholesterol in LDL 68 mg/dL LDL Cholesterol Calc RADHA (Bruin [Mass/volume] in Serum or [facility] Plasma by calculation Center) ID Date Data Source [id number] 08/12/2018 03:04:00 PM EDT RADHA ([facility]) Name Value Range Interpretation Description Data Sup porting Code Source(s) Document(s ) Calcium 9.3 Calcium RADHA [Mass/volume] in mg/dL (Bruin Serum or [facility]) Protein 7.3 Protein, RADHA [Mass/volume] in g/dL Total (Bruin Serum or [facility]) Glucose 392 Above high Glucose RADHA [Mass/volume] in mg/dL normal ([facility]) Urea nitrogen 23 BUN RADHA [Mass/volume] in mg/dL ([facility] or [facility]) Alkaline 59 IU/L Alkaline RADHA phosphatase Phosphatase (Bruin [Enzymatic Neighborhood activity/volume] [facility] in Serum or [facility] [place]) Bilirubin.total 0.2 Bilirubin, RADHA [Mass/volume] in mg/dL Total (Bruin Serum or [facility]) Albumin 4.5 Albumin RADHA [Mass/volume] in g/dL ([facility]) Aspartate 13 IU/L AST (SGOT) RADHA aminotransferase (Bruin [Enzymatic Neighborhood activity/volume] [facility] in Serum or [facility]) Sodium 138 Sodium RADHA [Moles/volume] in mmol/L ([facility] Serum [facility]) Potassium 4.8 Potassium RADHA [Moles/volume] in mmol/L ([facility]) Creatinine 1.06 Creatinine RADHA [Mass/volume] in mg/dL ([facility]) Alanine 22 IU/L ALT (SGPT) RADHA aminotransferase (Bruin [Enzymatic Neighborhood activity/volume] [facility] in Serum or [facility]) Chloride 101 Chloride RADHA [Moles/volume] in mmol/L ([facility] Serum or [facility]) Urea 22 BUN/Creatinin RADHA nitrogen/Creatinin e Ratio ([facility] on e [Mass Ratio] in [facility] Serum [facility]) Albumin/Globulin 1.6 A/G Ratio RADHA [Mass Ratio] in (Bruin Serum or Plasma [facility]) Globulin 2.8 Globulin, RADHA [Mass/volume] in g/dL Total (Bruin Serum by [facility] calculation [facility]) Carbon dioxide, 19 Below low normal Carbon GREENWA Y total mmol/L Dioxide, (Bruin [Moles/volume] in Total [facility] Serum or [facility]) eGFR If Africn Am 83 eGFR If RADHA mL/min/ Africn Am (Bruin [address]) eGFR If NonAfricn 72 eGFR If RADHA Am mL/min/ NonAfricn Am ([address]) ID Date Data Source [id number] 08/12/2018 03:04:00 PM EDT RADHA ([facility]) Name Value Range Interpretation Description Data Source(s ) Supporting Code Document(s ) Leukocytes 4.6 WBC RADHA [#/volume] in x10E3/u (Bruin Blood by [facility] count [facility]) Erythrocytes 4.36 RBC RADHA [#/volume] in x10E6/u (Bruin Blood by [facility]) Hematocrit 37.0 % Below low normal Hematocrit RADHA [Volume (Bruin Fraction] of [facility] Blood [facility]) Automated count Hemoglobin 12.3 Below low normal Hemoglobin RADHA [Mass/volume] g/dL (Bruin in Blood [facility]) Erythrocyte 28.2 pg MCH RADHA mean (Bruin corpuscular [facility]) [Entitic mass] by Automated count Erythrocyte 33.2 MCHC RADHA mean g/dL (Bruin corpuscular [facility] hemoglobin [facility]) concentration [Mass/volume] by Automated count Erythrocyte 85 fL MCV RADHA mean (Bruin corpuscular Neighborhood volume [[facility]) volume] by Automated count Neutrophils/100 60 % Neutrophils RADHA leukocytes in (Bruin Blood by [facility] count [facility]) Immature 0 % Immature RADHA granulocytes/10 Granulocytes ([facility] on 0 leukocytes in [facility] Blood [facility]) Lymphocytes/100 32 % Lymphs RADHA leukocytes in (Bruin Blood by [facility] count [facility]) Monocytes/100 5 % Monocytes RADHA leukocytes in (Bruin Blood by [facility]) Eosinophils/100 3 % Eos RADHA leukocytes in (Bruin Blood by [facility]) Basophils/100 0 % Basos RADHA leukocytes in (Bruin Blood by [facility]) Platelets 129 Below low normal Platelets RADHA [#/volume] in x10E3/u (Bruin Blood by [facility]) Morphology N/A Hematology RADHA [Interpretation Comments: (Bruin ] in Blood [facility]) Neutrophils 2.7 Neutrophils RADHA [#/volume] in x10E3/u (Absolute) (Bruin Blood by [facility]) Immature 0.0 Immature Grans RADHA granulocytes x10E3/u (Abs) (Bruin [#/volume] in [facility]) Monocytes 0.2 Monocytes(Abso RADHA [#/volume] in x10E3/u lute) ([facility] Blood by [facility]) Lymphocytes 1.5 Lymphs RADHA [#/volume] in x10E3/u (Absolute) ([facility] by [facility]) Eosinophils 0.1 Eos (Absolute) RADHA [#/volume] in x10E3/u ([facility] by [facility]) Basophils 0.0 Baso RADHA [#/volume] in x10E3/u (Absolute) ([facility] Blood by [facility]) Nucleated N/A NRBC RADHA erythrocytes/10 (Bruin 0 leukocytes Neighborhood [Ratio] in [facility]) Blood by Automated count Erythrocyte 14.6 % RDW RADHA distribution (Bruin width [Ratio] [facility]) count Immature cells N/A Immature Cells RADHA [#/volume] in ([facility]) ID Date Data Source [id number] 08/11/2018 03:00:34 PM EDT HECTOR Y (Bruin [id number] [facility]) Name Value Range Interpretation Description Data Source(s ) Supporting Code Document(s ) No Results No Results No Results RADHA ([facility]) ID Date Data Source [id number] 08/11/2018 02:29:50 PM EDT [place] Y (Bruin [id number] [facility]) Name Value Range Interpretation Description Data Source(s ) Supporting Code Document(s ) No Results No Results No Results RADHA ([facility] Recorded For [facility]) ID Date Data Source [id number] 08/11/2018 12:50:21 PM EDT [place] Y (Bruin [id number] [facility]) Name Value Range Interpretation Description Data Source(s ) Supporting Code Document(s ) No Results No Results No Results RADHA ([facility] Recorded For [facility]) ID Date Data Source [id number] 07/22/2018 04:52:16 PM EDT [place] Y (Bruin [id number] [facility]) Name Value Range Interpretation Description Data Source(s ) Supporting Code Document(s ) No Results No Results No Results RADHA ([facility] Recorded For [facility]) ID Date Data Source [id number] 07/22/2018 01:19:26 PM EDT [place] Y (Bruin [id number] [facility]) Name Value Range Interpretation Description Data Source(s ) Supporting Code Document(s ) No Results No Results No Results RADHA ([facility] Recorded For [facility]) ID Date Data Source [id number] 07/22/2018 10:34:50 AM EDT [place] Y (Bruin [id number] [facility]) Name Value Range Interpretation Description Data Source(s ) Supporting Code Document(s ) No Results No Results No Results RADHA ([facility] Recorded For [facility]) ID Date Data Source [id number] 07/21/2018 04:35:57 PM EDT [place] Y (Bruin [id number] [facility]) Name Value Range Interpretation Description Data Source(s ) Supporting Code Document(s ) No Results No Results No Results RADHA ([facility] Recorded For [facility]) ID Date Data Source [id number] 07/21/2018 04:28:19 PM EDT [place] Y (Bruin [id number] [facility]) Name Value Range Interpretation Description Data Source(s ) Supporting Code Document(s ) No Results No Results No Results RADHA ([facility] Recorded For [place] Specified [facility]) Procedure Social History Code Duration Value Status Description Data Source(s ) Caffeine Use 01/03/2020 completed NEXTGEN (Tono nt Details 12:00:00 AM [facility]) Smoking 01/03/2020 Unknown if completed Unknown if ever NEXTGEN ( [facility] 12:00:00 AM ever smoked smoked [facility]) Caffeine Use 11/08/2019 completed NEXTGEN (Tono nt Details 12:00:00 AM [facility]) Smoking 05/20/2019 Never smoked completed Never smoked RADHA ( [facility] 02:20:38 PM tobacco tobacco [place] EST (finding) ([facility]) [facility]) Smoking 02/01/2019 Ex-smoker completed Ex-smoker RADHA (Moun t 12:29:36 PM (finding) ([facility]) [facility]) Smoking 09/19/2018 Never smoked completed Never smoked RADHA ( [facility] 11:19:18 [facility] ([facility]) [facility]) Smoking 08/26/2018 smoking status completed RADHA ( [place] 02:43:57 PM [facility]) Smoking 07/24/2013 Never smoked completed Never smoked RADHA ( [facility] 11:57:36 AM tobacco tobacco [place] EDT (finding) ([facility]) [facility]) Alcohol Use completed NEXTGEN (Jose t Details [facility]) Assertion Tobacco user completed Tobacco user RADHA ( [facility] (finding) ([facility]) [facility]) Assertion Emotional completed Emotional stress RADHA ([facility] stress (finding) [place] ([facility]) [facility]) Assertion social history completed RADHA ( [facility] unchanged [facility]) Assertion Smoker completed Smoker (finding) RADHA ([facility] ([facility]) [facility]) Assertion Finding of completed Finding of RADHA (Moun t activity of activity of [place] daily living daily living [facility] od (finding) ([facility]) [facility]) Assertion Physical completed Physical RADHA (Moun t handicap handicap Fernando (finding) (finding) [facility]) Assertion Finding of completed Finding of life RADHA ([facility] life event event (finding) [place] ([facility]) [facility]) Assertion Caffeine user completed Caffeine user RADHA ([facility] (finding) (finding) [facility]) Assertion Exercise completed Exercise history RADHA ([facility] history finding Fernando finding (finding) [facility] ([facility]) [facility]) Assertion Finding completed Finding relating RADHA ([facility] relating to to drug misuse [place] drug misuse behavior [facility] behavior ([facility]) [facility]) (finding) Assertion Current completed Current drinker RADHA ([facility] drinker of of alcohol [place] alcohol (finding) [facility] ([facility]) [facility]) Smoking Unknown if completed Unknown if ever [place] [facility] smoked [facility] Assertion Finding completed Finding relating RADHA ([facility] relating to to drug misuse [place] drug misuse behavior [facility] behavior ([facility]) [facility]) (finding) Assertion Current completed Current drinker RADHA ([facility] drinker of of alcohol [place] alcohol ([facility]) [facility] ([facility]) [facility]) Vital Signs ID Date Data Source [id number] Name Value Range Interpretation Code Description Data Source(s) Body surface area 1.90 m2 1.90 m2 [facility] Y (Bruin Derived from [facility]) Pt with low back pain for 4 months ago. pt requires patches for pain. Body mass index (BMI) 30.5 kg/m2 30.5 kg/m2 [facility] (Bruin [Ratio] [facility]) Pt with low back pain for 4 months ago. pt requires patches for pain. Body weight 183 [lb_av] 183 [lb_av] [place]AMBER[place] (M ount [facility]) Pt with low back pain for 4 months ago. pt requires patches for pain. Body height 65 [in_us] 65 [in_us] CHAMBERINO (Maria D nt [facility]) Pt with low back pain for 4 months ago. pt requires patches for pain. Body temperature 98.1 [degF] 98.1 [degF] [facility] ([facility]) Pt with low back pain for 4 months ago. pt requires patches for pain. Heart rate 108 /min 108 /min CHAMBERINO (Moun t [facility]) Pt with low back pain for 4 months ago. pt requires patches for pain. Diastolic blood pressure 85 mm[Hg] 85 mm[Hg] [place] ([facility]) Pt with low back pain for 4 months ago. pt requires patches for pain. Systolic blood pressure 122 mm[Hg] 122 mm[Hg] [facility] ([facility]) Pt with low back pain for 4 months ago. pt requires patches for pain. PhenX - pain, abdominal - type and 10 1 0 RADHA ([facility]) Pt with low back pain for 4 months ago. pt requires patches for pain. Body height 65 [in_us] 65 [in_us] RADHA ([facility]) Body surface area Derived 1.92 m2 1.92 m2 RADHA ([facility]) Pt follow ups labs. Pt has referral for orthopedics Body mass index (BMI) 31.0 kg/m2 31.0 kg/m2 [facility] (Bruin [[facility]] [facility]) Pt follow ups labs. Pt has referral for orthopedics Body weight 186 [lb_av] 186 [lb_av] RADHA ([facility]) Pt follow ups labs. Pt has referral for orthopedics Body height 65 [in_us] 65 [in_us] RADHA ([facility]) Pt follow ups labs. Pt has referral for orthopedics Body temperature 97.5 [degF] 97.5 [degF] [facility] ([facility]) Pt follow ups labs. Pt has referral for orthopedics Heart rate 96 /min 96 /min CHAM[place] ([facility]) Pt follow ups labs. Pt has referral for orthopedics Diastolic blood pressure 86 mm[Hg] 86 mm[Hg] [place] ([facility]) Pt follow ups labs. Pt has referral for orthopedics Systolic blood pressure 127 mm[Hg] 127 mm[Hg] [facility] ([facility]) Pt follow ups labs. Pt has referral for orthopedics PhenX - pain, abdominal - type and 10 1 0 RADHA ([facility]) Pt follow ups labs. Pt has referral for orthopedics Body height 65 [in_us] 65 [in_us] RADHA ([facility]) Patient is here to see the Service Observer. PhenX - pain, abdominal - type and 0 0 CHAMBERINO ([facility]) Patient is here to see the Service Observer. Body surface area Derived from 1.92 m2 1.92 m2 CHAMBERINO ([facility]) pt is here because of pain in the legs, he is quite confused with the previous referrals and says he does not know if h e has complied with them.Today, the pt wants a referral for the leg specialist. Body mass index (BMI) 31.0 kg/m2 31.0 kg/m2 [facility] (Bruin [[facility]] [facility]) pt is here because of pain in the legs, he is quite confused with the previous referrals and says he does not know if h e has complied with them.Today, the pt wants a referral for the leg specialist. Body weight 186 [lb_av] 186 [lb_av] [facility] pt is here because of pain in the legs, he is quite confused with the previous referrals and says he does not know if h e has complied with them.Today, the pt wants a referral for the leg specialist. Body height 65 [in_us] 65 [in_us] CHAMBERINO ([facility]) pt is here because of pain in the legs, he is quite confused with the previous referrals and says he does not know if h e has complied with them.Today, the pt wants a referral for the leg specialist. Body temperature 98 [degF] 98 [degF] CHAMBERINO ([facility]) pt is here because of pain in the legs, he is quite confused with the previous referrals and says he does not know if h e has complied with them.Today, the pt wants a referral for the leg specialist. Heart rate 101 /min 101 /min CHAMBERINO ([facility]) pt is here because of pain in the legs, he is quite confused with the previous referrals and says he does not know if h e has complied with them.Today, the pt wants a referral for the leg specialist. Diastolic blood pressure 85 mm[Hg] 85 mm[Hg] CHAMBERINO ([facility]) pt is here because of pain in the legs, he is quite confused with the previous referrals and says he does not know if h dagmar has complied with them.Today, the pt wants a referral for the leg specialist. Systolic blood pressure 139 mm[Hg] 139 mm[Hg] [facility] ([facility]) pt is here because of pain in the legs, he is quite confused with the previous referrals and says he does not know if h dagmar has complied with them.Today, the pt wants a referral for the leg specialist. PhenX - pain, abdominal - type and 10 1 0 CHAMBERINO ([facility]) pt is here because of pain in the legs, he is quite confused with the previous referrals and says he does not know if h dagmar has complied with them.Today, the pt wants a referral for the leg specialist. Body surface area Derived from 1.90 m2 1.90 m2 CH[place] ([facility]) Pt is here for several legs and feet celia n years ago Body mass index (BMI) 30.5 kg/m2 30.5 kg/m2 [facility] (Bruin [[facility]] [facility]) Pt is here for several legs and feet celia n years ago Body weight 183 [lb_av] 183 [lb_av] CHAMBERINO ( ount [facility]) Pt is here for several legs and feet celia n years ago Body height 65 [in_us] 65 [in_us] CHAMBERINO (Maria D nt [facility]) Pt is here for several legs and feet celia n years ago Body temperature 97.8 [degF] 97.8 [degF] [facility] ([facility]) Pt is here for several legs and feet celia n years ago Heart rate 98 /min 98 /min [facility]AM[facility] ([facility]) Pt is here for several legs and feet celia n years ago Diastolic blood pressure 82 mm[Hg] 82 mm[Hg] CHAM[place]INO ([facility]) Pt is here for several legs and feet celia n years ago Systolic blood pressure 138 mm[Hg] 138 mm[Hg] Cass[facility] ([facility]) Pt is here for several legs and feet celia n years ago PhenX - pain, abdominal - type and 10 1 0 RADHA ([facility]) Pt is here for several legs and feet celia n years ago Body height 65 [in_us] 65 [in_us] RADHA ([facility]) Patient is here to see the Service Observer. PhenX - pain, abdominal - type and 0 0 RADHA ([facility]) Patient is here to see the Service Observer. Body height 65 [in_us] 65 [in_us] RADHA ([facility]) Patient is here for a Extremity venous s onogram. PhenX - pain, abdominal - type and 0 0 RADHA ([facility]) Patient is here for a Extremity venous s onogram. Body height 65 [in_us] 65 [in_us] RADHA ([facility]) Patient is here to see the Service Observer. PhenX - pain, abdominal - type and 0 0 RADHA ([facility]) Patient is here to see the Service Observer. Body surface area Derived from 1.91 m2 1.91 m2 CHAMBERINO ([facility]) Pt comes for refills medication Body mass index (BMI) 30.8 kg/m2 30.8 kg/m2 [facility] (Bruin [[facility]] [facility]) Pt comes for refills medication Body weight 185 [lb_av] 185 [lb_av] CHAMBERINO ( ount [facility]) Pt comes for refills medication Body height 65 [in_us] 65 [in_us] RADHA ([facility]) Pt comes for refills medication Body temperature 97.7 [degF] 97.7 [degF] [facility] ([facility]) Pt comes for refills medication Heart rate 93 /min 93 /min CHAMBERINO ([facility]) Pt comes for refills medication Diastolic blood pressure 89 mm[Hg] 89 mm[Hg] CHAM[place]INO ([facility]) Pt comes for refills medication Systolic blood pressure 145 mm[Hg] 145 mm[Hg] G [facility] ([facility]) Pt comes for refills medication PhenX - pain, abdominal - type and 10 1 0 RADHA ([facility]) Pt comes for refills medication Body surface area Derived from 1.91 m2 1.91 m2 CHAM[place]INO ([facility]) Pt follow up labs. Pain 3 months ago . Body mass index (BMI) 30.8 kg/m2 30.8 kg/m2 [facility]Bruin [facility]] [facility]) Pt follow up labs. Pain 3 months ago . Body weight 185 [lb_av] 185 [lb_av] RADHA ([facility]) Pt follow up labs. Pain 3 months ago . Body height 65 [in_us] 65 [in_us] RADHA ([facility]) Pt follow up labs. Pain 3 months ago . Body temperature 97.6 [degF] 97.6 [degF] [facility] ([facility]) Pt follow up labs. Pain 3 months ago . Heart rate 89 /min 89 /min RADHA ([facility]) Pt follow up labs. Pain 3 months ago . Diastolic blood pressure 84 mm[Hg] 84 mm[Hg] CHAM[place]INO ([facility]) Pt follow up labs. Pain 3 months ago . Systolic blood pressure 127 mm[Hg] 127 mm[Hg] G [place] ([facility]) Pt follow up labs. Pain 3 months ago . PhenX - pain, abdominal - type and 10 1 0 RADHA ([facility]) Pt follow up labs. Pain 3 months ago . Body surface area Derived from 1.92 m2 1.92 m2 RADHA ([facility]) pt present lower joints, worse one week ago Body mass index (BMI) 31.0 kg/m2 31.0 kg/m2 [facility] (Bruin [[facility]] [facility]) pt present lower joints, worse one week ago Body weight 186 [lb_av] 186 [lb_av] RADHA ([facility]) pt present lower joints, worse one week ago Body height 65 [in_us] 65 [in_us] RADHA ([facility]) pt present lower joints, worse one week ago Body temperature 97.4 [degF] 97.4 [degF] [facility] [facility] ([facility]) pt present lower joints, worse one week ago Heart rate 77 /min 77 /min RADHA ([facility]) pt present lower joints, worse one week ago Diastolic blood pressure 87 mm[Hg] 87 mm[Hg] RADHA ([facility]) pt present lower joints, worse one week ago Systolic blood pressure 135 mm[Hg] 135 mm[Hg] G [facility] ([facility]) pt present lower joints, worse one week ago PhenX - pain, abdominal - type and 8 8 RADHA ([facility]) pt present lower joints, worse one week ago Body surface area Derived from 1.89 m2 1.89 m2 CHAM[place] ([facility]) pt here for a f/u and have paperwork Body mass index (BMI) 30.0 kg/m2 30.0 kg/m2 [facility] (Bruin [[facility]] [facility]) pt here for a f/u and have paperwork Body weight 180 [lb_av] 180 [lb_av] RADHA ([facility]) pt here for a f/u and have paperwork Body height 65 [in_us] 65 [in_us] RADHA ([facility]) pt here for a f/u and have paperwork Body temperature 97.6 [degF] 97.6 [degF] [place] [facility] ([facility]) pt here for a f/u and have paperwork Respiratory rate 18 /min 18 /min CHAM[place] ([facility]) pt here for a f/u and have paperwork Heart rate 88 /min 88 /min RADHA ([facility]) pt here for a f/u and have paperwork Diastolic blood pressure 77 mm[Hg] 77 mm[Hg] CHAM[place] ([facility]) pt here for a f/u and have paperwork Systolic blood pressure 113 mm[Hg] 113 mm[Hg] [facility] ([facility]) pt here for a f/u and have paperwork PhenX - pain, abdominal - type and 8 8 RADHA ([facility]) pt here for a f/u and have paperwork Body surface area Derived from 1.90 m2 1.90 m2 RADHA ([facility]) pt is here for urology referral Body mass index (BMI) 30.3 kg/m2 30.3 kg/m2 [facility] (Bruin [Ratio] [facility]) pt is here for urology referral Body weight 182 [lb_av] 182 [lb_av] RADHA ( ount [facility]) pt is here for urology referral Body height 65 [in_us] 65 [in_us] RADHA ([facility] nt [facility]) pt is here for urology referral Body temperature 96.1 [degF] 96.1 [degF] [facility] ([facility]) pt is here for urology referral Respiratory rate 18 /min 18 /min RADHA ([facility]) pt is here for urology referral Heart rate 71 /min 71 /min RADHA ([facility]) pt is here for urology referral Diastolic blood pressure 70 mm[Hg] 70 mm[Hg] RADHA ([facility]) pt is here for urology referral Systolic blood pressure 108 mm[Hg] 108 mm[Hg] G [facility] ([facility]) pt is here for urology referral PhenX - pain, abdominal - type and 8 8 RADHA ([facility]) pt is here for urology referral Body surface area Derived from 1.91 m2 1.91 m2 RADHA ([facility]) Pt state He's here due to on-going Pain in Both Knee and Lower Back. No meds was taken. Body mass index (BMI) 30.7 kg/m2 30.7 kg/m2 [facility] (Bruin [Ratio] [facility]) Pt state He's here due to on-going Pain in Both Knee and Lower Back. No meds was taken. Body weight 184.375 [lb_av] 184.375 [lb_av] [facility] [place] ([facility]) Pt state He's here due to on-going Pain in Both Knee and Lower Back. No meds was taken. Body height 65 [in_us] 65 [in_us] RADHA ([facility]) Pt state He's here due to on-going Pain in Both Knee and Lower Back. No meds was taken. Body temperature 97.9 [degF] 97.9 [degF] [facility] [facility] ([facility]) Pt state He's here due to on-going Pain in Both Knee and Lower Back. No meds was taken. Heart rate rhythm 1 1 [place] Y ([facility]) Pt state He's here due to on-going Pain in Both Knee and Lower Back. No meds was taken. Heart rate 66 /min 66 /min CHAMBERINO ([facility]) Pt state He's here due to on-going Pain in Both Knee and Lower Back. No meds was taken. Diastolic blood pressure 84 mm[Hg] 84 mm[Hg] CHAM[place] ([facility]) Pt state He's here due to on-going Pain in Both Knee and Lower Back. No meds was taken. Systolic blood pressure 156 mm[Hg] 156 mm[Hg] [facility] [place] ([facility]) Pt state He's here due to on-going Pain in Both Knee and Lower Back. No meds was taken. Oxygen saturation in Arterial 100 % 100 % CHAMBERINO ([facility] blood by Pulse oximetry [facility]) Pt state He's here due to on-going Pain in Both Knee and Lower Back. No meds was taken. PhenX - pain, abdominal - type and 10 1 0 RADHA ([facility]) Pt state He's here due to on-going Pain in Both Knee and Lower Back. No meds was taken. Body height 65 [in_us] 65 [in_us] RADHA ([facility]) Patient is here to see the Service Observer. PhenX - pain, abdominal - type and 0 0 CHAMBERINO ([facility]) Patient is here to see the Service Observer. Body surface area Derived from 1.89 m2 1.89 m2 CHAM[place] ([facility]) Pt is here for 3 weeks of back pain and also he wants referral for podiatry Body mass index (BMI) 30.0 kg/m2 30.0 kg/m2 [facility] ([place]in [[facility]] [facility]) Pt is here for 3 weeks of back pain and also he wants referral for podiatry Body weight 180 [lb_av] 180 [lb_av] RADHA ([facility]) Pt is here for 3 weeks of back pain and also he wants referral for podiatry Body height 65 [in_us] 65 [in_us] [facility] Complex) Pt is here for 3 weeks of back pain and also he wants referral for podiatry Body temperature 97.9 [degF] 97.9 [degF] [facility] ([facility]) Pt is here for 3 weeks of back pain and also he wants referral for podiatry Heart rate 59 /min 59 /min RADHA ([facility]) Pt is here for 3 weeks of back pain and also he wants referral for podiatry Diastolic blood pressure 77 mm[Hg] 77 mm[Hg] RADHA ([facility]) Pt is here for 3 weeks of back pain and also he wants referral for podiatry Systolic blood pressure 124 mm[Hg] 124 mm[Hg] [facility] Pt is here for 3 weeks of back pain and also he wants referral for podiatry PhenX - pain, abdominal - type and 8 8 RADHA ([facility]) Pt is here for 3 weeks of back pain and also he wants referral for podiatry Body surface area Derived from 1.90 m2 1.90 m2 RADHA ([facility]) Pt is here for follow up and difficult t o sleeping Body mass index (BMI) 30.1 kg/m2 30.1 kg/m2 BASILIO ENWAY ([place] [[facility]] [facility]) Pt is here for follow up and difficult t o sleeping Body weight 181 [lb_av] 181 [lb_av] RADHA ([facility]) Pt is here for follow up and difficult t o sleeping Body height 65 [in_us] 65 [in_us] RADHA ([facility]) Pt is here for follow up and difficult t o sleeping Body temperature 97.5 [degF] 97.5 [degF] [facility] ([facility]) Pt is here for follow up and difficult t o sleeping Heart rate 69 /min 69 /min CHAMBER[place] ([facility]) Pt is here for follow up and difficult t o sleeping Diastolic blood pressure 83 mm[Hg] 83 mm[Hg] CH[place] ([facility]) Pt is here for follow up and difficult t o sleeping Systolic blood pressure 150 mm[Hg] 150 mm[Hg] [facility] ([facility]) Pt is here for follow up and difficult t o sleeping PhenX - pain, abdominal - type and 0 0 CHAMBER[place] ([facility]) Pt is here for follow up and difficult t o sleeping Body surface area Derived from 1.90 m2 1.90 m2 CHAMBERINO ([facility]) Pt is here for follow up. and Medicatio n Refill. Body mass index (BMI) 30.1 kg/m2 30.1 kg/m2 GRE ENWAY ([place] [facility]] [facility] Pt is here for follow up. and Medicatio n Refill. Body weight 181 [lb_av] 181 [lb_av] CHAMBERINO ([facility]) Pt is here for follow up. and Medicatio n Refill. Body height 65 [in_us] 65 [in_us] CHAMBERINO ([facility]) Pt is here for follow up. and Medicatio n Refill. Body temperature 98 [degF] 98 [degF] CHAMBERINO ([facility]) Pt is here for follow up. and Medicatio n Refill. Heart rate 82 /min 82 /min CHAMBERINO ([facility]) Pt is here for follow up. and Medicatio n Refill. Diastolic blood pressure 71 mm[Hg] 71 mm[Hg] CH[place] ([facility]) Pt is here for follow up. and Medicatio n Refill. Systolic blood pressure 103 mm[Hg] 103 mm[Hg] [facility] ([facility]) Pt is here for follow up. and Medicatio n Refill. PhenX - pain, abdominal - type and 5 5 RADHA ([facility]) Pt is here for follow up. and Medicatio n Refill. Body surface area Derived from 1.88 m2 1.88 m2 CHAMBERINO ([facility]) PT . is here for med refill , complaint about mouth pain X2 days Body mass index (BMI) 29.6 kg/m2 29.6 kg/m2 GRE ENWAY ([place] [facility]] [facility] PT . is here for med refill , complaint about mouth pain X2 days Body weight 177.8 [lb_av] 177.8 [lb_av] GREENWA Y ([facility]) PT . is here for med refill , complaint about mouth pain X2 days Body height 65 [in_us] 65 [in_us] RADHA ([facility]) PT . is here for med refill , complaint about mouth pain X2 days Body temperature 97.6 [degF] 97.6 [degF] [facility] ([facility]) PT . is here for med refill , complaint about mouth pain X2 days Respiratory rate 18 /min 18 /min CHAMBERINO ([facility]) PT . is here for med refill , complaint about mouth pain X2 days Heart rate rhythm 1 1 ([facility]) PT . is here for med refill , complaint about mouth pain X2 days Heart rate 74 /min 74 /min CHAM[place]INO ([facility]) PT . is here for med refill , complaint about mouth pain X2 days Diastolic blood pressure 83 mm[Hg] 83 mm[Hg] RADHA ([facility]) PT . is here for med refill , complaint about mouth pain X2 days Systolic blood pressure 106 mm[Hg] 106 mm[Hg] G REENWAY ([facility]) PT . is here for med refill , complaint about mouth pain X2 days PhenX - pain, abdominal - type and 9 9 RADHA ([facility]) PT . is here for med refill , complaint about mouth pain X2 days PhenX - pain, abdominal - type and 0 0 RADHA ([facility]) Pt c/o cough x 3 days and ongoing R ankl e/ foot pain. Body surface area Derived from 1.89 m2 1.89 m2 CHAMBERINO ([facility]) Pt c/o cough x 3 days and ongoing R ankl e/ foot pain. Body mass index (BMI) 29.8 kg/m2 29.8 kg/m2 GRE ENWAY ([place] [[facility]] [facility]) Pt c/o cough x 3 days and ongoing R ankl e/ foot pain. Body weight 178.8 [lb_av] 178.8 [lb_av] HECTOR Y ([facility]) Pt c/o cough x 3 days and ongoing R ankl e/ foot pain. Body height 65 [in_us] 65 [in_us] CHAMBERINO ([facility]) Pt c/o cough x 3 days and ongoing R ankl e/ foot pain. Body temperature 97.3 [degF] 97.3 [degF] [facility] ([facility]) Pt c/o cough x 3 days and ongoing R ankl e/ foot pain. Respiratory rate 18 /min 18 /min CHAMBERINO ([facility]) Pt c/o cough x 3 days and ongoing R ankl e/ foot pain. Heart rate rhythm 1 1 HECTOR Y ([facility]) Pt c/o cough x 3 days and ongoing R ankl e/ foot pain. Heart rate 93 /min 93 /min CHAMBERINO ([facility]) Pt c/o cough x 3 days and ongoing R ankl e/ foot pain. Diastolic blood pressure 84 mm[Hg] 84 mm[Hg] RADHA ([facility]) Pt c/o cough x 3 days and ongoing R ankl e/ foot pain. Systolic blood pressure 138 mm[Hg] 138 mm[Hg] G REENWAY ([facility]) Pt c/o cough x 3 days and ongoing R ankl e/ foot pain. PhenX - pain, abdominal - type and 0 0 CHAMBERINO ([facility]) Pt. is here because he need refill for e pilepsy problem. Body surface area Derived from 1.92 m2 1.92 m2 CHAMBERINO ([facility]) Pt. is here because he need refill for e pilepsy problem. Body mass index (BMI) 31.1 kg/m2 31.1 kg/m2 BASILIO AGUILAR ([place] [[facility]] [facility]) Pt. is here because he need refill for e pilepsy problem. Body weight 187 [lb_av] 187 [lb_av] RADHA ([facility]) Pt. is here because he need refill for e pilepsy problem. Body height 65 [in_us] 65 [in_us] RADHA ([facility]) Pt. is here because he need refill for e pilepsy problem. Body temperature 98 [degF] 98 [degF] CHAMBERINO ([facility]) Pt. is here because he need refill for e pilepsy problem. Heart rate 96 /min 96 /min CHAMBERINO ([facility]) Pt. is here because he need refill for e pilepsy problem. Diastolic blood pressure 72 mm[Hg] 72 mm[Hg] CHAMBERINO ([facility]) Pt. is here because he need refill for e pilepsy problem. Systolic blood pressure 139 mm[Hg] 139 mm[Hg] [facility] Pt. is here because he need refill for e pilepsy problem. PhenX - pain, abdominal - type and 0 0 CHAMBERINO ([facility]) Pt is here for problems in the fingers. Body surface area Derived from 1.91 m2 1.91 m2 CHAMBERINO ([facility]) Pt is here for problems in the fingers. Body mass index (BMI) 30.8 kg/m2 30.8 kg/m2 [facility] ([place] [[facility]] [facility]) Pt is here for problems in the fingers. Body weight 185 [lb_av] 185 [lb_av] CHAMBERINO ([facility]) Pt is here for problems in the fingers. Body height 65 [in_us] 65 [in_us] RADHA ([facility]) Pt is here for problems in the fingers. Body temperature 97 [degF] 97 [degF] CHAMBERINO ([facility]) Pt is here for problems in the fingers. Heart rate 71 /min 71 /min CHAMBERINO ([facility]) Pt is here for problems in the fingers. Diastolic blood pressure 78 mm[Hg] 78 mm[Hg] CHAMBERINO ([facility]) Pt is here for problems in the fingers. Systolic blood pressure 134 mm[Hg] 134 mm[Hg] [facility]) Pt is here for problems in the fingers. PhenX - pain, abdominal - type and 8 8 RADHA ([facility]) Patient is here to see the offshore diver Body height 65 [in_us] 65 [in_us] CHAMBERINO ([facility]) Patient is here to see the offshore diver PhenX - pain, abdominal - type and 8 8 CHAMBERINO ([facility]) Pt is here for follow Up. Body surface area Derived from 1.92 m2 1.92 m2 CHAMBERINO ([facility]) Pt is here for follow Up. Body mass index (BMI) 31.1 kg/m2 31.1 kg/m2 [facility] [facility]) Pt is here for follow Up. Body weight 187 [lb_av] 187 [lb_av] CHAMBERINO ([facility]) Pt is here for follow Up. Body height 65 [in_us] 65 [in_us] CHAMBERINO ([facility]) Pt is here for follow Up. Body temperature 97.6 [degF] 97.6 [degF] [facility] ([facility]) Pt is here for follow Up. Heart rate 83 /min 83 /min CHAMBERINO ([facility]) Pt is here for follow Up. Diastolic blood pressure 83 mm[Hg] 83 mm[Hg] CHAMBERINO ([facility]) Pt is here for follow Up. Systolic blood pressure 138 mm[Hg] 138 mm[Hg] [facility] ([facility]) Pt is here for follow Up. PhenX - pain, abdominal - type and 9 9 RADHA ([facility]) Pt presents today for medication refills Body surface area Derived from 1.90 m2 1.90 m2 RADHA ([facility]) Pt presents today for medication refills Body mass index (BMI) 30.5 kg/m2 30.5 kg/m2 GRE EN[place] ([place] [[facility]] [facility]) Pt presents today for medication refills Body weight 183 [lb_av] 183 [lb_av] RADHA ([facility]) Pt presents today for medication refills Body height 65 [in_us] 65 [in_us] RADHA ([facility]) Pt presents today for medication refills Body temperature 98.2 [degF] 98.2 [degF] [place] ([facility]) Pt presents today for medication refills Heart rate 99 /min 99 /min RADHA ([facility]) Pt presents today for medication refills Diastolic blood pressure 82 mm[Hg] 82 mm[Hg] RADHA ([facility]) Pt presents today for medication refills Systolic blood pressure 122 mm[Hg] 122 mm[Hg] G REENWAY ([facility]) Pt presents today for medication refills Patient Treatment Plan of Care Planned Activity Planned Date Details Description Data Source (s) Alprazolam 2 MG Oral 01/03/2020 [facility] ([facility] Tablet [Xanax] 12:00:00 AM [facility] Medical Ce nt) quetiapine 200 MG Oral 01/03/2020 [facility] EN ([facility] Tablet [Seroquel] 12:00:00 AM [facility]) Alprazolam 2 MG Oral 12/06/2019 [facility] ([facility] Tablet [Xanax] 12:00:00 AM ED Medical Ce nt) quetiapine 200 MG Oral 12/06/2019 [facility]G EN ([facility] Tablet [Seroquel] 12:00:00 AM [facility]) Simvastatin 20 MG Oral 11/29/[address] ([place] Tablet 12:00:00 AM [facility]) gabapentin 300 MG Oral 11/29/[address] ([place] Capsule 12:00:00 AM [facility]) Keppra 500MG Oral Tablet 11/29/2019 [place] ([place] 12:00:00 AM [facility]) Amlodipine 5 MG Oral 11/29/2019 [place] Y ([facility] Tablet 12:00:00 AM [facility]) Aspirin 81 MG Delayed 11/29/2019 [facility] ([place] Release Oral Tablet 12:00:00 AM [facility]) Alprazolam 2 MG Oral 11/08/2019 [facility] ([facility] [Xanax] 12:00:00 AM [facility] Medical Ce nter) quetiapine 200 MG Oral 11/08/2019 NEXTG EN ([facility] Tablet [Seroquel] 12:00:00 AM [facility]) Glumetza 500MG Oral 10/24/2019 RADHA ([facility] Tablet Extended Release 12:00:[address]) Ozempic (0.25 or 0.5 10/24/2019 [place] Y ([facility] MG/DOSE) Subcutaneous 12:00:00 AM [facility] Pen-injector [place] ) Lancets Miscellaneous 10/23/2019 GRE[facility]W A[facility] ([place] 12:00:00 AM [facility]) Blood Glucose Test In 10/23/2019 GRE[place] A[facility] ([place] Vitro Strip 12:00:00 AM [facility]) quetiapine 200 MG Oral 10/10/2019 NEXTG EN ([facility] Tablet [Seroquel] 12:00:00 AM [facility]) Alprazolam 2 MG Oral 10/10/2019 [facility] ([facility] Tablet [Xanax] 12:00:00 AM [facility] Medical Ce nter) Alprazolam 2 MG Oral 09/15/2019 [facility] ([facility] [Xanax] 12:00:00 AM [facility] Medical Ce nter) quetiapine 200 MG Oral 09/15/2019 NEXTG EN ([facility] [Seroquel] 12:00:00 AM [facility]) Amlodipine 5 MG Oral 09/08/2019 [place] Y ([place] Tablet 12:00:00 AM [facility]) Aspirin 81 MG Delayed 09/08/2019 [facility] ([place] Release Oral Tablet 12:00:00 AM [facility]) [place] 3 1000MG Oral 09/08/2019 RADHA ([facility] Capsule 12:00:00 AM [facility]) Naproxen 375 MG Oral 09/08/2019 [place] Y ([facility] Tablet 12:00:00 AM [facility]) Lidocaine 5% External 09/08/2019 [facility] ([facility] Patch 12:00:00 AM [facility]) Aspirin 81 MG Delayed 09/08/2019 GRE[place] [facility] ([facility] Release Oral Tablet 12:00:00 AM [facility]) Lidocaine 5% External 09/08/2019 GRE[place]W A[facility] ([facility] Patch 12:00:00 AM [facility]) Naproxen 375 MG Oral 09/08/2019 [place] Y ([facility] Tablet 12:00:00 AM [facility]) Amlodipine 5 MG Oral 09/08/2019 [place] Y ([place] Tablet 12:00:00 AM [facility]) Keppra 500MG Oral Tablet 09/08/2019 [place] ([facility] 12:00:00 AM [facility]) Ozempic (0.25 or 0.5 09/08/2019 [place] Y ([place] MG/DOSE) Subcutaneous 12:00:[address] [facility] Solution Pen-injector Center ) Simvastatin 20 MG Oral 09/08/[address] ([place] Tablet 12:00:00 AM [facility]) [place] 3 1000MG Oral 09/08/2019 RADHA ([facility] Capsule 12:00:00 AM [facility]) [place] 3 1000MG Oral 09/08/2019 RADHA ([facility] Capsule 12:00:00 AM [facility]) Metformin hydrochloride 09/08/2019 [place] [place] ([facility] 850 MG Oral Tablet 12:00:00 AM [facility]) Insulin Syringe-Needle 09/08/[address] ([place] U-100 31G X 1/4"0.3 ML 12:00:00 AM [facility] Miscellaneous Center) Alcohol Pads 70% 09/08/2019 RADHA ([facility] [place] 12:00:00 AM [facility]) Alprazolam 2 MG Oral 08/16/2019 [facility] ([facility] [Xanax] 12:00:00 AM [facility] Medical Ce nter) quetiapine 200 MG Oral 08/16/2019 NEXTG EN ([facility] [Seroquel] 12:00:00 AM [facility]) gabapentin 300 MG Oral 07/27/[address] ([place] Capsule 12:00:00 AM [facility]) quetiapine 200 MG Oral 07/18/2019 NEXTG EN ([facility] [Seroquel] 12:00:00 AM [facility]) Alprazolam 2 MG Oral 07/18/2019 [facility] ([facility] [Xanax] 12:00:00 AM [facility] Medical Ce nter) Ozempic (0.25 or 0.5 06/29/2019 [place] Y ([facility] MG/DOSE) Subcutaneous 12:00:00 AM [facility] Pen-injector Center ) Lancets Miscellaneous 06/29/2019 [facility]W AY ([facility] 12:00:00 AM [facility]) Blood Glucose Test In 06/29/2019 GRE[place]W AY ([place] Vitro Strip 12:00:00 AM [facility]) Insulin Syringe-Needle 06/29/[address] ([place] U-100 31G X 1/4"0.3 ML [facility]:00:[facility] Glumetza 500MG Oral 06/29/2019 RADHA ([place] Tablet Extended Release 12:00:00 AM [facility] 24 Hour Center) Amlodipine 5 MG Oral 06/29/2019 [place] Y ([place] Tablet 12:00:00 AM [facility]) Aspirin 81 MG Delayed 06/29/2019 [place] A[place] ([facility] Release Oral Tablet 12:00:00 AM [facility]) Keppra 500MG Oral Tablet 06/29/2019 [place] ([place] 12:00:00 AM [facility]) Simvastatin 20 MG Oral 06/29/[address] ([place] Tablet 12:00:00 AM [facility]) Tylenol 8 Hour Arthritis 06/26/2019 [place] ([place] Pain 650MG Oral Tablet 12:00:00 AM [facility] Extended Release [place]) quetiapine 200 MG Oral 06/20/2019 NEXTG EN ([facility] [Seroquel] 12:00:00 AM [facility] Medical [place]) Alprazolam 2 MG Oral 06/20/2019 [facility] ([facility] [Xanax] 12:00:00 AM [facility] Medical Ce nt) Blood Glucose Test In 06/05/2019 [place] A[facility] ([place] Vitro Strip 12:00:00 AM [facility]) Amlodipine 5 MG Oral 06/05/2019 GRE[place] Y ([place] Tablet 12:00:00 AM [facility]) Keppra 500MG Oral Tablet 06/05/2019 [place] ([facility] 12:00:00 AM [facility]) Aspirin 81 MG Delayed 06/05/2019 [place] AY ([place] Release Oral Tablet 12:00:00 AM [facility]) Glumetza 1000MG Oral 06/05/2019 [place]EN[place] Y ([place] Tablet Extended Release 12:00:00 AM [facility] 24 Hour [place]) Simvastatin 20 MG Oral 06/05/[address] ([place] Tablet 12:00:00 AM [facility]) Ozempic (0.25 or 0.5 06/05/2019 [place] Y ([place] MG/DOSE) Subcutaneous 12:00:00 AM [facility] Solution Pen-injector Center ) Glumetza 500MG Oral 06/05/2019 RADHA ([place] Tablet Extended Release 12:00:00 AM [place] [id number] Hour [place]) Insulin Syringe-Needle 06/05/[address] ([place] U-100 31G X 1/4"0.3 ML 12:00:00 AM [facility] Miscellaneous [place]) Lancets Miscellaneous 06/05/2019 [place] AY ([place] 12:00:00 AM [facility]) Alprazolam 2 MG Oral 05/23/2019 [facility] ([facility] [Xanax] 12:00:00 AM [facility] Medical Ce nt) quetiapine 200 MG Oral 05/23/2019 NEXTG EN ([facility] Tablet [Seroquel] 12:00:00 AM [facility] Medical [place]) Glumetza 1000MG Oral 05/02/2019 [place] Y ([facility] Tablet Extended Release 12:00:00 AM [facility] 24 Hour Center) Alprazolam 2 MG Oral 04/25/2019 NEXTGEN ([facility] [Xanax] 12:00:00 AM [facility] Medical Ce nter) quetiapine 200 MG Oral 04/25/2019 NEXTG EN ([facility] [Seroquel] 12:00:00 AM [facility] Medical [place]) quetiapine 200 MG Oral 04/25/2019 NEXTG EN ([facility] [Seroquel] 12:00:00 AM [facility] Medical [place]) Alprazolam 2 MG Oral 03/28/2019 [facility] ([facility] [Xanax] 12:00:00 AM [facility] Medical Ce nter) quetiapine 200 MG Oral 03/28/2019 NEXTG EN ([facility] [Seroquel] 12:00:00 AM [facility] Medical [place]) Amlodipine 5 MG Oral 03/20/2019 HECTOR Y ([facility] Tablet 12:00:00 AM [facility]) Metformin hydrochloride 03/20/2019 [place] ([place] 1000 MG Oral Tablet 12:00:00 AM [facility]) Ozempic (0.25 or 0.5 03/20/2019 HECTOR Y ([facility] MG/DOSE) Subcutaneous 12:00:[address] [facility] Pen-injector Center ) Simvastatin 20 MG Oral 03/20/[address] ([place] Tablet 12:00:00 AM [facility]) Keppra 500MG Oral Tablet 03/20/2019 [place] ([facility] 12:00:00 AM [facility]) Alprazolam 2 MG Oral 02/28/2019 [facility] ([facility] [Xanax] 12:00:00 AM [facility] Medical Ce nter) quetiapine 200 MG Oral 02/28/2019 NEXTG EN ([facility] [Seroquel] 12:00:00 AM [facility] Medical [place]) Alprazolam 2 MG Oral 02/17/2019 [facility]GEN ([facility] [Xanax] 12:00:00 AM [facility] Medical Ce nter) quetiapine 200 MG Oral 02/17/2019 NEXTG EN ([facility] [Seroquel] 12:00:00 AM [facility]) Keppra 500MG Oral Tablet 02/01/2019 [place] ([facility] 12:00:00 AM [facility]) Simvastatin 20 MG Oral 02/01/[address] ([place] Tablet 12:00:00 AM [facility]) Aspirin 81 MG Delayed 02/01/2019 [place] AY ([place] Release Oral Tablet 12:00:00 AM [facility]) Amlodipine 5 MG Oral 02/01/2019 [place] Y ([facility] Tablet 12:00:00 AM [facility]) Diclofenac Sodium 0.01 02/01/[address] ([place] MG/MG Topical Gel 12:00:00 AM [facility]) Tylenol Extra Strength 02/01/[address] ([place] 500MG Oral Tablet 12:00:00 AM [facility]) Ozempic (0.25 or 0.5 02/01/2019 [place] Y ([facility] MG/DOSE) Subcutaneous 12:00:00 AM [facility] Pen-injector Center ) Metformin hydrochloride 02/01/2019 [place] ([place] 1000 MG Oral Tablet 12:00:00 AM [facility]) quetiapine 200 MG Oral 01/16/2019 NEXTG EN ([facility] [Seroquel] 12:00:00 AM [facility] Medical [place]) Alprazolam 2 MG Oral 01/16/2019 NEXTGEN ([facility] Tablet [Xanax] 12:00:00 AM ED Medical Ce nter) Alprazolam 2 MG Oral 01/09/2019 [facility] ([facility] [Xanax] 12:00:00 AM ED Medical Ce nter) quetiapine 200 MG Oral 12/21/2018 NEXTG EN ([facility] Tablet [Seroquel] 12:00:00 AM [facility] Medical Center) Alprazolam 2 MG Oral 12/21/2018 [facility] ([facility] Tablet [Xanax] 12:00:00 AM [facility] Medical Ce nter) Metoprolol Tartrate 25 MG 12/15/2018 GR E[facility]AY ([facility] Oral Tablet 12:00:00 AM [facility]) Aspirin 81 MG Delayed 12/15/2018 [facility] AY ([facility] Release Oral Tablet 12:00:00 AM [facility]) Easy Trak Blood Glucose 12/15/2018 [place] ([facility] Test In Vitro Strip 12:00:00 AM [facility]) Voltaren 1% Transdermal 12/15/2018 [place] ([facility] Gel 12:00:00 AM [facility]) Menthol 0.05 MG/MG 12/15/2018 RADHA ([facility] Transdermal Patch 12:00:00 AM [facility]) Menthol 0.05 MG/MG 12/15/2018 RADHA ([facility] Transdermal Patch 12:00:00 AM [facility]) Voltaren 1% Transdermal 12/15/2018 [place] ([facility] Gel 12:00:00 AM [facility]) Simvastatin 20 MG Oral 12/15/[address] ([place] Tablet 12:00:00 AM [facility]) Keppra 500MG Oral Tablet 12/15/2018 [place] ([facility] 12:00:00 AM [facility]) Glipizide 10 MG Oral 12/15/2018 [place] Y ([facility] Tablet 12:00:00 AM [facility]) Janumet 50-1000MG Oral 12/15/[address] ([place] Tablet 12:00:00 AM [facility]) Alprazolam 2 MG Oral 11/23/2018 [facility]GEN ([facility] Tablet [Xanax] 12:00:00 AM [facility] Medical Ce nter) quetiapine 200 MG Oral 11/23/2018 NEXTG EN ([facility] Table[facility] [Seroquel] 12:00:00 AM [facility] Medical [place]) Glipizide 10 MG Oral 11/21/2018 [place] Y ([facility] Tablet 12:00:00 AM [facility]) Keppra 500MG Oral Tablet 11/21/2018 [place] ([facility] 12:00:00 AM [facility]) Metoprolol Tartrate 25 MG 11/21/2018 [place] ([facility] Oral Tablet 12:00:00 AM [facility]) Simvastatin 20 MG Oral 11/21/[address] ([place] Tablet 12:00:00 AM [facility]) Janumet 50-1000MG Oral 11/21/[address] ([place] Tablet 12:00:00 AM [facility]) Alprazolam 2 MG Oral 10/26/2018 NEXTGEN ([facility] Tablet [Xanax] 12:00:00 AM [facility] Medical Ce nter) quetiapine 200 MG Oral 10/26/2018 NEXTG EN ([facility] Tablet [Seroquel] 12:00:00 AM [facility]) Lisinopril 10 MG Oral 10/18/2018 GREENW AY ([facility] Tablet 12:00:00 AM [facility]) Metoprolol Tartrate 25 MG 10/18/2018 GR EENWAY ([facility] Oral Tablet 12:00:00 AM [facility]) Aspirin 81 MG Delayed 10/18/2018 GREENW AY ([facility] Release Oral Tablet 12:00:00 AM [facility]) Easy Trak Blood Glucose 10/18/2018 GREE NWAY ([facility] Test In Vitro Strip 12:00:00 AM [facility]) Keppra 500MG Oral Tablet 10/18/2018 GRE ENWAY ([facility] 12:00:00 AM [facility]) Lancets Miscellaneous 10/18/2018 GREENW AY ([facility] 12:00:00 AM [facility]) Alprazolam 2 MG Oral 09/28/2018 NEXTGEN ([facility] Tablet [Xanax] 12:00:00 AM [facility] Medical Ce nter) quetiapine 200 MG Oral 09/28/2018 NEXTG EN ([facility] Tablet [Seroquel] 12:00:00 AM [facility]) Macrobid 100MG Oral 09/13/2018 RADHA ([facility] Capsule 12:00:00 AM [facility]) Simvastatin 20 MG Oral 09/13/[address] ([place] Tablet 12:00:00 AM [facility]) Keppra 500MG Oral Tablet 09/13/2018 GRE ENWAY ([facility] 12:00:00 AM [facility]) Janumet 50-1000MG Oral 09/13/[address] ([place] Tablet 12:00:00 AM [facility]) Glipizide 10 MG Oral 09/13/2018 GREENWA Y ([facility] Tablet 12:00:00 AM [facility]) Alprazolam 2 MG Oral 08/31/2018 NEXTGEN ([facility] Tablet [Xanax] 12:00:00 AM [facility] Medical Ce nter) quetiapine 200 MG Oral 08/31/2018 NEXTG EN ([facility] Tablet [Seroquel] 12:00:00 AM [facility]) cetirizine hydrochloride 08/26/2018 GRE ENWAY ([place] 10 MG Oral Tablet 12:00:00 AM [facility]) Flonase Allergy Relief 08/26/[address] ([place] 50MCG/ACT Nasal 12:00:00 AM [facility]) Naproxen 500 MG Oral 08/26/2018 GREENWA Y ([place] Tablet 12:00:00 AM [facility]) Janumet 50-1000MG Oral 08/26/[address] ([place] Tablet 12:00:00 AM [facility]) Glipizide 10 MG Oral 08/26/2018 GREENWA Y ([place] Tablet 12:00:00 AM [facility]) Guaifenesin 20 MG/ML Oral 08/26/2018 GR EENWAY ([facility] Solution 12:00:00 AM [facility]) Keppra 500MG Oral Tablet 08/12/2018 GRE ENWAY ([facility] 12:00:00 AM [facility]) Aspirin 81 MG Delayed 08/12/2018 GREENW AY ([facility] Release Oral Tablet 12:00:00 AM [facility]) Metoprolol Tartrate 25 MG 08/12/2018 GR EENWAY ([place] Oral Tablet 12:00:00 AM [facility]) Lancets Miscellaneous 08/11/2018 GREENW AY ([facility] 12:00:00 AM [facility]) Augmentin 875-125MG Oral 08/11/2018 GRE ENWAY ([facility] Tablet 12:00:00 AM [facility]) Blood Glucose System Korey 08/11/2018 GRE ENWAY ([facility] Kit 12:00:00 AM [facility]) Easy Trak Blood Glucose 08/11/2018 GREE NWAY ([facility] Test In Vitro Strip 12:00:00 AM [facility]) Alprazolam 2 MG Oral 08/03/2018 NEXTGEN ([facility] Tablet [Xanax] 12:00:00 AM [facility] Medical Ce nt) quetiapine 200 MG Oral 08/03/2018 NEXTG EN ([facility] Tablet [Seroquel] 12:00:00 AM [facility]) Glyburide 5 MG / 07/18/2018 RADHA (M ount [place] Metformin hydrochloride 12:00:00 AM [facility] 500 MG Oral Tablet [place]) Lisinopril 10 MG Oral 07/18/2018 GREENW AY ([place] Tablet 12:00:00 AM [facility]) Metformin hydrochloride 07/18/2018 GREE NWAY ([place] 1000 MG Oral Tablet 12:00:00 AM [facility]) Metoprolol Tartrate 25 MG 07/18/2018 GR EENWAY ([facility] Oral Tablet 12:00:00 AM [facility]) Simvastatin 20 MG Oral 07/18/[address] ([place] Tablet 12:00:00 AM [facility]) Tylenol 8 Hour Arthritis 07/18/2018 GRE ENWAY ([facility] Pain 650MG [facility] [place] quetiapine 200 MG Oral 07/06/2018 NEXTG EN ([facility] Tablet [Seroquel] 12:00:00 AM [facility]) Alprazolam 2 MG Oral 07/06/2018 NEXTGEN ([facility] Tablet [Xanax] 12:00:00 AM [facility] Medical Ce nt) Diclofenac Sodium 0.01 02/16/2018 NEXTG EN ([facility] MG/MG Topical Gel 12:00:00 AM [facility]) [Voltaren] Tylenol 8 Hour Arthritis 11/27/2016 GRE ENWAY ([facility] Pain 650MG Oral Tablet 12:00:00 AM [facility] Release [place]) Tamsulosin hydrochloride 08/31/2013 NEX TGEN ([facility] 0.4 MG Oral Capsule 12:00:00 AM [facility]) [Flomax] Glyburide 5 MG / 08/31/2013 NEXTGEN ([facility] Metformin hydrochloride 12:00:00 AM EDT edical [place]) 500 MG Oral Tablet [Glucovance] Metoprolol Tartrate 25 MG 08/31/2013 NE XTGEN ([facility] Oral Tablet 12:00:00 AM [facility]) Omeprazole 40 MG Delayed 08/31/2013 NEX TGEN ([facility] Release Oral Capsule 12:00:00 AM EDT [facility]) Phenytoin sodium 100 MG 08/31/2013 NEXT GEN ([facility] Extended Release Oral 12:00:00 AM EDT Med ical [place]) Capsule Alprazolam 2 MG Oral 08/24/2013 NEXTGEN ([facility] Tablet [Xanax] 12:00:00 AM EDT Medical Ce nter) Naproxen 500 MG Oral 07/24/2013 GREENWA Y ([facility] Tablet 12:00:00 AM [facility]) Lac-Hydrin 12% EX LOTN 06/21/[address] ([facility] 12:00:00 AM [facility]) Zithromax 250MG OR TABS 06/05/2013 GREE NWAY ([facility] 12:00:00 AM [facility]) Claritin 10MG OR TABS 02/02/2013 GREENW AY (Bruin 12:00:00 AM [facility]) Flonase 50MCG/ACT NA SUSP 02/02/2013 GR EENWAY (Bruin 12:00:00 AM [facility]) Clarithromycin 500 MG 02/02/2013 GREENW AY ([facility] Oral Tablet 12:00:00 AM [facility]) Dilantin 100MG OR CAPS 09/01/[address] ([facility]in 12:00:00 AM [facility]) Metoprolol Tartrate 25 MG 09/01/2012 GR EENWAY ([facility] Oral Tablet 12:00:00 AM [facility]) Benicar HCT 40-12.5MG OR 09/01/2012 GRE ENWAY ([facility] TABS 12:00:00 AM [facility]) Glucovance 5-500MG OR 09/01/2012 GREENW AY ([facility] TABS 12:00:00 AM [facility]) Metoprolol Tartrate 25 MG 12/22/2011 GR EENWAY ([place] Oral Tablet 12:00:00 AM [facility]) Benicar HCT 40-12.5MG OR 12/22/2011 GRE ENWAY ([facility] TABS 12:00:00 AM [facility]) Glucovance 5-500MG OR 11/25/2011 GREENW AY ([facility] TABS 12:00:00 AM [facility]) Ecotrin Low Strength 81 11/09/2011 GREE NWAY ([facility] MG TBEC 12:00:00 AM [facility]) Metoprolol Tartrate 25 MG 11/09/2011 GR EENWAY ([facility] Oral Tablet 12:00:00 AM [facility]) Glucovance 5-500MG OR 11/09/2011 GREENW AY ([facility] TABS 12:00:00 AM [facility]) Dilantin 100MG OR CAPS 11/09/[address] ([place] 12:00:00 AM [facility]) Benicar HCT 40-12.5MG OR 11/09/2011 GRE ENWAY ([facility] TABS 12:00:00 AM [facility]) quetiapine 200 MG Oral [facility] Alprazolam 2 MG Oral [facility]
--- NOTE | 2020-01-15 16:53 | EKG ---
Test Reason : Blood Pressure : / mmHG Vent. Rate : 103 BPM Atrial Rate : 103 BPM P-R Int : 178 ms QRS Dur : 082 ms QT Int : 312 ms P-R-T Axes : 037 -18 059 degrees QTc Int : 408 ms SINUS TACHYCARDIA OTHERWISE NORMAL ECG WHEN COMPARED WITH ECG OF 15-MAY-2019 16:38, VENT. RATE HAS INCREASED BY 34 BPM T WAVE VARIATION Confirmed by LORRI BLACKMAN MD ([id number]) on 01/15/2020 4:52:56 PM Referred By: Confirmed By:LORRI BLACKMAN MD
[2020-01-15 17:35] LABS: EPI CELLS 13 /uL (0-25.1); HYALINE CASTS 8 /uL (0-3.1); URINE APPEARANCE CLEAR; URINE BACTERIA 14 /uL (0-1359); URINE BILIRUBIN NEGATIVE (NEGATIVE); URINE COLOR YELLOW; URINE GLUCOSE (UA) 1+ (NEGATIVE); URINE KETONE TRACE (NEGATIVE); URINE LEUK ESTERASE NEGATIVE (NEGATIVE); URINE NITRITE NEGATIVE (NEGATIVE); URINE PROTEIN 2+ (NEGATIVE); URINE RBC 5 /uL (0-23.9); URINE UROBILINOGEN 0.2 mg/dL (0.2-1.0); URINE WBC 8 /uL (0-25.8)
--- NOTE | 2020-01-15 18:21 | PDOC ---
Documentation entered by Shalom Burrows SCRIBE, acting as scribe for Carolina Costa MD. Carolina Costa MD: This documentation has been prepared by the scribe, Shalom Burrows SCRIBE, under my direction and personally reviewed by me in its entirety. I confirm that the documentation accurately reflects all work, treatment, procedures, and medical decision making performed by me. Attending Attestation - Resident Resident Name: CandidaPedro - ED Attending Attestation I have performed the following: I have examined & evaluated the patient, The case was reviewed & discussed with the resident, I agree w/resident's findings & plan, Exceptions are as noted - HPI HPI: 01/15/20 14:39 The patient is a 69 year old male with a significant past medical history of CVA, CAD x1 stent, HTN, HLD, and asthma who presents to the emergency department for evaluation of hyperglycemia and leg pain. The patient reports he receives weekly shots of insulin (on Sundays) at [place] where he lives but did not receive one yesterday. He endorses chronic back and leg pain for the past 10 years. The patient denies chest/abdominal/back pain, cough, and shortness of breath. Denies fever, chills, nausea, vomiting, and/or any GI symptoms. Denies any symptoms. Denies any other symptoms. Allergies: NKA Surgical Hx: stent PCP: Dr. Araujo - Physicial Exam PE: 01/15/20 14:25 GENERAL: Awake, alert, and fully oriented, in no acute distress HEAD: No signs of trauma EYES: PERRLA, EOMI, sclera anicteric, conjunctiva clear ENT: Auricles normal inspection, hearing grossly normal, nares patent, oropharynx clear without exudates. Moist mucosa NECK: Normal ROM, supple, no lymphadenopathy, JVD, or masses LUNGS: Breath sounds equal, clear to auscultation bilaterally. No wheezes, and no crackles HEART: Regular rate and rhythm, normal S1 and S2, no murmurs, rubs or gallops ABDOMEN: Soft, nontender, normoactive bowel sounds. No guarding, no rebound. No masses EXTREMITIES: Normal range of motion, no edema. No clubbing or cyanosis. No cords, erythema, or tenderness NEUROLOGICAL: Cranial nerves II through XII grossly intact. Normal speech, normal gait SKIN: Warm, Dry, normal turgor, no rashes or lesions noted. - Medical Decision Making 01/15/20 16:50 Patient was unclear on why he was sent to the hospital. I contacted the [facility] nt office at [address], as they called 911. As per wastewater project manager (provider was not available), patient was confused, not at his baseline. Normally he is very talkative, but today, was having difficulty answering questions. Was disoriented to the month, and was asking inappropriate questions- asked another patient in the waiting room if they were a clown. He was referred to the ED for AMS. NIHSS done in the ED, however, no way to confirm his last known normal, therefore not a tPA candidate. 01/15/20 18:24 As per verbal report from his facility to Dr. Rogers (on the other side of the ED), they stated that he was confused today, as well, and this is not his baseline. Will continue with plan for admission. Discharge - Discharge Information Problems reviewed: Yes Clinical Impression/Diagnosis: Altered mental status Qualifiers: Altered mental status type: disorientation Qualified Code(s): R41.0 - Disorientation, unspecified - Follow up/Referral Referrals: Brenda Araujo MD [Primary Care Provider] - - Patient Discharge Instructions - Post Discharge Activity
--- NOTE | 2020-01-15 19:01 | PDOC ---
*Physical Exam - Vital Signs Last Vital Signs Temp Pulse Resp BP Pulse Ox 98.6 F 110 H 20 157/91 96 01/15/20 13:29 01/15/20 13:29 01/15/20 13:29 01/15/20 13:29 01/15/20 13:29 - Physical Exam 01/15/20 19:00 Signout. W/u as AMS CVA NIHSS 2 pending: signout plan: admit 01/16/20 03:02 Signed out to Medicine Service at 1930 ED Treatment Course - LABORATORY CBC & Chemistry Diagram: 01/15/20 15:26 01/15/20 15:26 - ADDITIONAL ORDERS Additional order review: Laboratory Results 01/15/20 01/15/20 01/15/20 17:15 15:26 13:25 Sodium 136 Potassium 5.1 Chloride 103 Carbon Dioxide 25 Anion Gap 7 L BUN 19.7 H Creatinine 1.4 H Est GFR (CKD-EPI)AfAm 58.58 Est GFR (CKD-EPI)NonAf 50.54 POC Glucometer 276 Random Glucose 259 H Calcium 9.4 Total Bilirubin 0.3 AST 13 L ALT 37 Alkaline Phosphatase 72 Total Protein 9.2 H Albumin 4.8 Urine Color Yellow Urine Appearance Clear Urine pH 5.0 Ur Specific [place] 1.015 Urine Protein 2+ H Urine Glucose (UA) 1+ H Urine Ketones Trace H Urine Blood Negative Urine Nitrite Negative Urine Bilirubin Negative Urine Urobilinogen 0.2 Ur Leukocyte Esterase Negative Urine WBC (Auto) 8 Urine RBC (Auto) 5 Urine Casts (Auto) 8 U Epithel Cells (Auto) 13 Urine Bacteria (Auto) 14 01/15/20 01/15/20 15:26 13:25 RBC 4.88 MCV 84.4 MCHC 33.9 RDW 13.3 MPV 9.7 Neutrophils % 65.4 D Lymphocytes % 27.9 D Monocytes % 4.0 Eosinophils % 2.2 Basophils % 0.5 POC Glucometer 276 Discharge - Discharge Information Problems reviewed: Yes Clinical Impression/Diagnosis: Altered mental status Qualifiers: Altered mental status type: disorientation Qualified Code(s): R41.0 - Disorientation, unspecified - Follow up/Referral - Patient Discharge Instructions - Post Discharge Activity
--- NOTE | 2020-01-15 19:55 | HP ---
CHIEF COMPLAINT:here from PCP office with confusion PCP:Dr. Camacho HISTORY OF PRESENT ILLNESS: 69 year old Mexican speaking male with a past medical history of hypertension, asthma, hyperlipidemia, CVA, and CAD x1 with prior stent who presented to the ER from physicians office as he was noted to be confused in the waiting area and was asking inappropriate questions. Patient reported he receives a weekly shot of insulin on Sundays and he missed this past week and is unsure why. Patient also reports having blood in his stool and bilateral leg pain. He denies chest pain, shortness of breath, fever, chills, abdominal pain, nausea or vomiting or leg swelling. ER course notable for: (1)hyperglycemia (blood glucose 250-270 range) (2)creatinine 1.4, potassium 5.1 (3)CT scan of head negative Recent Travel: no PAST MEDICAL HISTORY: hypertension asthma hyperlipidemia CVA CAD X 1 PAST SURGICAL HISTORY: none Social History: Smoking:no Alcohol:no Drugs: no Allergies No Known Allergies Allergy (Verified 01/15/20 13:29) HOME MEDICATIONS: Home Medications Medication Instructions Recorded Meclizine HCl [Antivert -] 25 mg PO TID 09/03/16 Metoclopramide HCl [Reglan -] 10 mg PO TID 09/03/16 Folic Acid 1 mg PO DAILY 09/22/16 Quetiapine Fumarate "Xr" [Seroquel 150 mg PO DAILY 09/22/16 XR] Aspirin Coated [Ecotrin -] 325 mg PO DAILY #30 tab MDD 1 09/24/16 Atorvastatin Ca [Lipitor] 40 mg PO HS #30 tablet MDD 1 09/24/16 Metoprolol Tartrate [Lopressor -] 50 mg PO BID #60 tablet MDD 2 09/24/16 Ranolazine [Ranexa -] 500 mg PO BID #60 tab MDD 2 09/24/16 Alprazolam [Xanax] 0.25 mg PO BID PRN #10 tablet MDD 2 05/29/17 levETIRAcetam [Keppra -] 500 mg PO BID #60 tablet MDD 2 05/29/17 Mupirocin Ointment [Bactroban 2% 1 applic TP BID #1 tube 04/26/18 Ointment -] Naproxen 500 mg PO BID PRN #20 tablet 04/26/18 Sulfamethoxazole/Trimethoprim 1 tab PO BID #14 tablet 04/26/18 [Bactrim Ds -] Gabapentin [Neurontin] 300 mg PO BID PRN #20 capsule 09/11/18 Pramipexole Dihydrochloride 0.25 mg PO HS #14 tablet 09/22/18 [Mirapex -] Lidocaine 5% Patch [Lidoderm Patch 1 patch TP DAILY #7 patch 03/17/19 -] REVIEW OF SYSTEMS CONSTITUTIONAL: Absent: fever, chills, diaphoresis, generalized weakness, malaise, loss of appetite, weight change HEENT: Absent: rhinorrhea, nasal congestion, throat pain, throat swelling, difficulty swallowing, mouth swelling, ear pain, eye pain, visual changes CARDIOVASCULAR: Absent: chest pain, syncope, palpitations, irregular heart rate, lightheadedness, peripheral edema RESPIRATORY: Absent: cough, shortness of breath, dyspnea with exertion, orthopnea, wheezing, stridor, hemoptysis GASTROINTESTINAL: Absent: abdominal pain, abdominal distension, nausea, vomiting, diarrhea, constipation, melena, hematochezia, blood in stool GENITOURINARY: Absent: dysuria, frequency, urgency, hesitancy, hematuria, flank pain, genital pain MUSCULOSKELETAL: Absent: myalgia, arthralgia, joint swelling, back pain, neck pain, leg pain SKIN: Absent: rash, itching, pallor HEMATOLOGIC/IMMUNOLOGIC: Absent: easy bleeding, easy bruising, lymphadenopathy, frequent infections ENDOCRINE: Absent: unexplained weight gain, unexplained weight loss, heat intolerance, cold intolerance NEUROLOGIC: Absent: headache, focal weakness or paresthesias, dizziness, unsteady gait, seizure, mental status changes, bladder or bowel incontinence PSYCHIATRIC: Absent: anxiety, depression, suicidal or homicidal ideation, hallucinations. PHYSICAL EXAMINATION Vital Signs - 24 hr 01/15/20 01/15/20 13:29 19:13 Temperature 98.6 F Pulse Rate 110 H Respiratory 20 Rate Blood Pressure 157/91 O2 Sat by Pulse 96 98 Oximetry (%) Laboratory Results - last 24 hr 01/15/20 01/15/20 01/15/20 13:25 15:26 15:26 WBC 6.0 RBC 4.88 Hgb 14.0 Hct 41.1 MCV 84.4 MCH 28.6 MCHC 33.9 RDW 13.3 Plt Count 172 MPV 9.7 Absolute Neuts (auto) 3.9 Neutrophils % 65.4 D Lymphocytes % 27.9 D Monocytes % 4.0 Eosinophils % 2.2 Basophils % 0.5 Nucleated RBC % 0 Sodium 136 Potassium 5.1 Chloride 103 Carbon Dioxide 25 Anion Gap 7 L BUN 19.7 H Creatinine 1.4 H Est GFR (CKD-EPI)AfAm 58.58 Est GFR (CKD-EPI)NonAf 50.54 POC Glucometer 276 Random Glucose 259 H Calcium 9.4 Total Bilirubin 0.3 AST 13 L ALT 37 Alkaline Phosphatase 72 Total Protein 9.2 H Albumin 4.8 Urine Color Urine Appearance Urine pH Ur Specific [place] Urine Protein Urine Glucose (UA) Urine Ketones Urine Blood Urine Nitrite Urine Bilirubin Urine Urobilinogen Ur Leukocyte Esterase Urine WBC (Auto) Urine RBC (Auto) Urine Casts (Auto) U Pathogenic Cast Auto U Epithel Cells (Auto) Urine Bacteria (Auto) 01/15/20 17:15 WBC RBC Hgb Hct MCV MCH MCHC RDW Plt Count MPV Absolute Neuts (auto) Neutrophils % Lymphocytes % Monocytes % Eosinophils % Basophils % Nucleated RBC % Sodium Potassium Chloride Carbon Dioxide Anion Gap BUN Creatinine Est GFR (CKD-EPI)AfAm Est GFR (CKD-EPI)NonAf POC Glucometer Random Glucose Calcium Total Bilirubin AST ALT Alkaline Phosphatase Total Protein Albumin Urine Color Yellow Urine Appearance Clear Urine pH 5.0 Ur Specific [place] 1.015 Urine Protein 2+ H Urine Glucose (UA) 1+ H Urine Ketones Trace H Urine Blood Negative Urine Nitrite Negative Urine Bilirubin Negative Urine Urobilinogen 0.2 Ur Leukocyte Esterase Negative Urine WBC (Auto) 8 Urine RBC (Auto) 5 Urine Casts (Auto) 8 U Pathogenic Cast Auto None seen U Epithel Cells (Auto) 13 Urine Bacteria (Auto) 14 ASSESSMENT/PLAN: 69 year old Mexican speaking male with a past medical history of hypertension, asthma, hyperlipidemia, CVA, and CAD x1 with prior stent who presented with confusion. He was found to have hyperglycemia and acute renal insufficiency. He had no evidence of leukocytosis, UA was normal and CT scan of head was with no acute findings. He is being admitted for evaluation of altered mental status changes in the setting of hyperglycemia and to exclude CVA. 1. AMS likely in the setting of Hyperglycemia/ Rule Out CVA urine with 2+ protein, trace ketones BGM before meals and at bedtime Novolin insulin as per sliding scale check [id number] consider endocrine consult in am creatinine 1.4 (baseline 0.8-1.1) potassium 5.1 IVF NS @ 75 cc/hr repeat BMP in am if no improvement consider Nephrology evaluation in am 3. R/O GI Bleed patient reported having bloody stool 3 times check stool occult if positive consult GI hgb/hct normal 4. Hypertension SBP 150's UA with 2+ proteinuria c/w metoprolol tartrate 50mg twice daily will need better bp control 5. Hyperlipidemia c/w statin 6. CAD with History of Prior Stent asymptomatic c/w asa, statin c/w ranexa c/w metoprolol 7. Hx CVA c/w asa and statin 8. Hx Seizures c/w Keppra 9.Asthma no acute exacerbation 10. Rule Out COVID follow up on COVID test results maintain strict isolation precautions for droplet and contact maintain o2 sat >90% DVT Prophylaxis SCD's FEN c/w IV fluids NS @ 75cc/hr BMP daily and replete as needed ADA, low sodium diet Family Medical History Family History: Unable to Obtain Visit type - Medication Review Med list reviewed for High Risk Meds patients 65 and older: Yes - Emergency Visit Emergency Visit: Yes ED Registration Date: 01/15/20 Care time: The patient presented to the Emergency Department on the above date and was hospitalized for further evaluation of their emergent condition. - New Patient This patient is new to me today: Yes Date on this admission: 01/16/20 - Critical Care Critical Care patient: No
--- OUTSIDE RECORDS SUMMARY | 2020-01-15 20:05 | XMS ---
:1950 Author Organization [facility] Care Team Providers Name Role Phone Melissa Mcgill Unavailable Steve Luke Unavailable [phone] GUY BAIRES, KORY Unavailable GUY BAIRES, KORY Unavailable GUY BAIRES, KORY Unavailable GUY BAIRES, KORY Unavailable GUY BAIRES, KORY Unavailable GUY BAIRES, KORY Unavailable OYEKOLA BROTH MIXER, MOBOLAJI Unavailable OYEKOLA BROTH MIXER, MOBOLAJI Unavailable OYEKOLA BROTH MIXER, MOBOLAJI Unavailable OYEKOLA BROTH MIXER, MOBOLAJI Unavailable AGYEPONG BROTH MIXER, YANETH Unavailable AGYEPONG BROTH MIXER, YANETH Unavailable SEBASTIAN KIMBROUGH MD Unavailable Unavailable SEBASTIAN KIMBROUGH MD Unavailable Unavailable SEBASTIAN KIMBROUGH MD Unavailable Unavailable SEBASTIAN KIMBROUGH MD Unavailable Unavailable SEBASTIAN KIMBROUGH MD Unavailable Unavailable SEBASTIAN KIMBROUGH MD Unavailable Unavailable SEBASTIAN KIMBROUGH MD Unavailable Unavailable SEBASTIAN KIMBROUGH MD Unavailable Unavailable SEBASTIAN KIMBROUGH MD Unavailable Unavailable SEBASTIAN KIMBROUGH MD Unavailable Unavailable SEBASTIAN KIMBROUGH MD Unavailable Unavailable SHRAVAN COLON Unavailable Unavailable MARK BAIRES, RONAL Unavailable MARK BAIRES, RONAL Unavailable MORAL LABELER, JAIDEN Unavailable Isaiah Portillo Unavailable [phone] Padmini Calero Unavailable [phone] Padmini Calero Unavailable [phone] MARINO LEE MD Unavailable Unavailable MARINO LEE MD Unavailable Unavailable MARINO LEE MD Unavailable Unavailable MARINO LEE MD Unavailable Unavailable MARINO LEE MD Unavailable Unavailable MARINO LEE MD Unavailable Unavailable RAVANMEHR, BALJINDER Unavailable RAVANMEHR, BALJINDER Unavailable NAIDA BAIRES, RINY Unavailable NAIDA BAIRES, RINY Unavailable NAIDA BAIRES, RINY Unavailable NAIDA BAIRES, RINY Unavailable Adolfo Burnett Unavailable [phone] JUDD RICHTER Unavailable Unavailable PADMINI FERRARO Unavailable Unavailable ANTONIO BAIRES, [facility] Galvan Unavailable ANTONIO BAIRES, Cole Unavailable Cole ALVAREZ MD Unavailable ANTONIO BAIRES, Cole Unavailable Cole ALVAREZ MD Unavailable ANTONIO BAIRES, Cole Unavailable ANTONIO MD, A Unavailable ANTONIO MD, A Unavailable ANTONIO MD, A Unavailable ANTONIO MD, A Unavailable ANTONIO MD, A Unavailable ANTONIO MD, A Unavailable ANTONIO MD, A Unavailable ANTONIO MD, A Unavailable DION BROTH MIXER Unavailable DION BROTH MIXER Unavailable DION BROTH MIXER Unavailable Janine-Bertrand Unavailable [phone] Janine-Bertrand Unavailable [phone] BORON MD Unavailable Dalton DPM Unavailable Dalton DPM Unavailable WANG MD Unavailable Yousuf MD Unavailable Unavailable Yousuf MD Unavailable Unavailable LB DPM Unavailable LB DPM Unavailable Marv Unavailable Unavailable Marv Unavailable Unavailable ASEMOTA MD Unavailable JOS HC Unavailable Re-disclosure Warning The records that you [...] is protected by Article 27-F of the [facility] Public Health law. If you continue you may haveaccess to information: Regarding HIV / AIDS; Provided by facilities licensed or operated by the [facility] Office of Mental Health; or Provided by the [facility] Office for People With Developmental Disabilities. If such information is present, then the following [facility] mandated warning applies: This information [...] law may result in a fine or fpc sentence or both. A general authorization for the release of medical or other information is NOT sufficient authorization for further disclosure. Allergies and Adverse Reactions Type Description Substance Reaction Status Data Source(s ) Allergy to No Known Allergies No known GREENW AY ([place] substance allergies [facility]) Allergy to No Known Allergies No known GREENW AY ([place] substance allergies [facility]) Allergy to No Known Allergies No known GREENW AY ([place] substance allergies [facility]) Allergy to No Known Allergies No known GREENW AY ([place] substance allergies [facility]) Allergy to No Known Allergies No known GREENW AY ([place] substance allergies [facility]) Allergy to No Known Allergies No known GREENW AY ([place] substance allergies [facility]) Allergy to No Known Allergies No known GREENW AY ([place] substance allergies [place] ([facility]) Allergy to No Known Allergies No known GREENW AY ([place] substance allergies [place] ([facility]) Allergy to No Known Allergies No known GREENW AY ([place] substance allergies [place] ([facility]) Allergy to No Known Allergies No known GREENW AY ([place] substance allergies [place] ([facility]) Allergy to No Known Allergies No known GREENW AY ([place] substance allergies [place] ([facility]) Allergy to No Known Allergies No known GREENW AY ([place] substance allergies [place] ([facility]) Allergy to No Known Allergies No known GREENW AY ([place] substance allergies [place] ([facility]) Allergy to No Known Allergies No known GREENW AY ([place] substance allergies [place] ([facility]) Allergy to No Known Allergies No known GREENW AY ([place] substance allergies [place] ([facility]) Allergy to No Known Allergies No known GREENW AY ([place] substance allergies [place] ([facility]) Allergy to No Known Allergies No known GREENW AY ([place] substance allergies [place] ([facility]) Allergy to No Known Allergies No known GREENW AY ([place] substance allergies [place] ([facility]) Allergy to No Known Allergies No known GREENW AY ([place] substance allergies [place] ([facility]) Allergy to No Known Allergies No known GREENW AY ([place] substance allergies [place] ([facility]) Allergy to No Known Allergies No known GREENW AY ([place] substance allergies [place] ([facility]) Allergy to No Known Allergies No known GREENW AY ([place] substance allergies [place] ([facility]) Allergy to No Known Allergies No known GREENW AY ([place] substance allergies [place] ([facility]) Allergy to No Known Allergies No known GREENW AY ([place] substance allergies [place] ([facility]) Allergy to No Known Allergies No known GREENW AY ([place] substance allergies [place] ([facility]) Allergy to No Known Allergies No known GREENW AY ([place] substance allergies [place] ([facility]) Allergy to No Known Allergies No known GREENW AY ([place] substance allergies [place] ([facility]) Allergy to No Known Allergies No known GREENW AY ([place] substance allergies [place] ([facility]) Allergy to No Known Allergies No known GREENW AY ([place] substance allergies [place] ([facility]) Allergy to No Known Allergies No known GREENW AY ([place] substance allergies [place] ([facility]) Allergy to No Known Allergies No known GREENW AY ([place] substance allergies [place] ([facility]) Allergy to No Known Allergies No known GREENW AY ([place] substance allergies [place] ([facility]) Allergy to No Known Allergies No known GREENW AY ([place] substance allergies [place] ([facility]) Allergy to No Known Allergies No known GREENW AY ([place] substance allergies [place] ([facility]) Allergy to No Known Allergies No known GREENW AY ([place] substance allergies [place] ([facility]) Allergy to No Known Allergies No known GREENW AY ([place] substance allergies [place] ([facility]) Allergy to No Known Allergies No known GREENW AY ([place] substance allergies [place] ([facility]) Allergy to No Known Allergies No known GREENW AY ([place] substance allergies [place] ([facility]) Allergy to No Known Allergies No known GREENW AY ([place] substance allergies [place] ([facility]) Allergy to No Known Allergies No known GREENW AY ([place] substance allergies [place] ([facility]) Allergy to No Known Allergies No known GREENW AY ([place] substance allergies [place] ([facility]) Allergy to No Known Allergies No known GREENW AY ([place] substance allergies [place] ([facility]) Allergy to No Known Allergies No known GREENW AY ([place] substance allergies [place] ([facility]) Allergy to No Known Allergies No known GREENW AY ([place] substance allergies [place] ([facility]) Allergy to No Known Allergies No known GREENW AY ([place] substance allergies [place] ([facility]) Allergy to No Known Allergies No known GREENW AY ([place] substance allergies [place] ([facility]) Allergy to No Known Allergies No known GREENW AY ([place] substance allergies [place] ([facility]) Allergy to No Known Allergies No known GREENW AY ([place] substance allergies [place] ([facility]) Allergy to No Known Allergies No known GREENW AY ([place] substance allergies [place] ([facility]) Allergy to No Known Allergies No known GREENW AY ([place] substance allergies [place] ([facility]) Allergy to No Known Allergies No known GREENW AY ([place] substance allergies [place] ([facility]) Allergy to No Known Allergies No known GREENW AY ([place] substance allergies [place] ([facility]) Allergy to No Known Allergies No known GREENW AY ([place] substance allergies [place] ([facility]) Allergy to No Known Allergies No known GREENW AY ([place] substance allergies [place] ([facility]) Allergy to No Known Allergies No known GREENW AY ([place] substance allergies [place] ([facility]) Allergy to No Known Allergies No known GREENW AY ([place] substance allergies [place] ([facility]) Food allergy No Known Food No Known Food [facility] Allergies Allergies Medical Center Drug allergy No Known Drug No Known Drug [facility] Allergies Allergies Medical [place] Propensity to Propensity to Propensity to NEXTG EN ([facility] adverse reactions adverse reactions adverse [facility] Medical (disorder) (disorder) reactions Center) (disorder) Encounters Encounter Providers Location Date Indications Data Source(s ) OutpatientOFF Attender: Mental NEXTGEN (Sa int ICE/OUTPATIEN [facility] 020 Twyla Med ical T VISIT, EST [facility] 09:52:0 Center) 0 AM EDT - 020 09:52:0 0 AM EDT OutpatientOFF Attender: Mental NEXTGEN (Sa int ICE/OUTPATIEN [facility] 020 Twyla Med ical T VISIT, EST [facility] 09:32:0 Center) 0 AM EDT - 020 09:32:0 0 AM EDT Outpatient<td Attender: RADHA (M ount ID="encounter JAIDEN MORAL 020 Fernando TypeDescripti LABELER 11:05:0 Neighborhoo d onID0">*No 0 AM Health Center) Show*</td><td EDT - >JAIDEN MORAL 020 LABELER</td><td> 11:59:0 0 PM EDT </td><td>11/11</td><t d></td> Outpatient<td Attender: [place] RADHA (M ount ID="encounter BILLIE Community 020 Fernando TypeDescripti [facility] Health 11:30:0 Neighborh ood onID1">*Phone Center 0 AM Health [facility] er) *</td><td>GIF EDT - [facility]Y [facility]</td><td>Y [facility] 11:59:0 Community 0 PM Health EDT Center</td><t d>11/29/2019< /td><td></td> Attender: Mental NEXTGEN ([facility] 020 Twyla Medica l [facility] 11:23:0 Center) 0 AM EDT - 020 11:23:0 0 AM EDT Outpatient<td Attender: Wu RADHA (M ount ID="[facility] 02:53:0 Neighborhoo d onID2">PATIEN Center [address] [facility]) T EDT - ADVOCACY</td> <td>Melissa 020 Mcgill</td>< 11:59:0 td>[place] 0 PM [facility] EDT Health Center</td><t d>10/25/2019< /td><td></td> Outpatient<td Attender: Wu Mild Cognitive HECTOR Y ([place] ID="encounter [facility] 020 ImpairmentMild Cogniti ve Fernando [facility] 11:45:0 ImpairmentHypertensi on Neighborhood onID3">WALKIN Center 0 AM (systemic)Diabetes [facility] Center) S</td><td>GIF EDT - MellitusHypertension [facility] (systemic)Diabetes [facility]</td><td>Y 020 Mellitus onker 12:48:5 Community 0 [facility] EDT Center</td><t d>10/23/2019< /td><td><cont ent ID="encounter DiagnosisID3- 0">Diabetes Mellitus</con tent>, <content ID="encounter DiagnosisID3- 1">Mild Cognitive Impairment</c ontent>, <content ID="encounter DiagnosisID3- 2">Hypertensi on (systemic)</c ontent></td> Mild Cognitive Impairment Mild Cognitive Impairment Hypertension (systemic) Diabetes Mellitus Hypertension (systemic) Diabetes Mellitus Attender: Mental 10/10/2019 [facility] 09:56:00 AM ([facility] 10/10/2019 Medical 09:56:00 AM Center) EDT Outpatient Attender: Mental 09/15/2019 [facility]OUT [facility] 03:40:00 PM ([facility] 09/15/2019 Medical 03:40:00 PM Center) EDT Outpatient Attender: Wu 09/15/2019 IRVING <td [facility] 11:43:00 AM ([place] ID="[facility] EDT [facility] 09/15/2019 Health criptionID 11:59:00 PM Center) 4">PATIENT EDT ADVOCACY</ td><td>Samreen dy Mcgill</t d><td>[facility]</td ><td>09/14</td> <td></td> Attender: Mental 09/13/2019 [facility] 02:13:00 PM ([facility] ED[facility] 09/13/2019 Medical 02:13:00 PM Center) EDT Outpatient Attender: Wu 09/08/2019 IRVING <td [facility] 12:16:00 PM ([place] [facility] 09/08/2019 Health criptionID 11:59:00 PM Center) 5">PATIENT EDT ADVOCACY</ td><td>Samreen dy Mcgill</t d><td>[facility]</td ><td>09/07</td> <td></td> Outpatient Attender: Wu 09/08/2019 ObesityEssential IRVING <[facility] 09:30:00 AM HypertriglyceridemiaAnem iaObe ([place] ID="encoun OYEKOLA BROTH MIXER Health EDT - sityEssential [facility] 09/08/2019 HypertriglyceridemiaAnemi aO Health criptionID 10:55:02 AM [facility] Center) 6">WALKINS EDT HypertriglyceridemiaAnemi aObe </td><td>[facility] HypertriglyceridemiaAnemi aO OYEKODE sityMild Cognitive BROTH MIXER</td><t ImpairmentEssential d>[place] HypertriglyceridemiaAnemi [facility] ess/intervention Patient Health Screened For Future Fall Center</td RiskAssess/intervention ><td>09/07 Patient Screened For Futu </td> Fall RiskAssess/intervent ion <td><renetta Patient Screened For Futu re nt Fall [...] Mellitus Diabetes Mellitus Outpatient<td Attender: Wu 09/05/2019 IRV[place] ID="encounterTypeDescriptionID7">*OUTREACH*</td><td>[facility] 09:35:00 AM ([facility]</td><td>[facility]</td><td>09/05/2019</td><td></td> [facility] 11:59:00 PM Center) EDT Outpatient<td ID="encounterTypeDescriptionID8">OFFICE Attender: Wu 08/31/2019 RADHA VISIT</td><td>Yvonne Bradford DP</td><td>[facility] 11:30:00 AM ([facility]</td><td>08/31/2019</td><td></td> Dalton DPM Health EDT - [facility] 08/31/2019 Health 11:04:51 AM Center) EDT Outpatient<td ID="encounterTypeDescriptionID9">PATIENT Attender: Wu 08/30/2019 RADHA ADVOCACY</td><td>[facility]</td><td>[facility] 02:00:00 PM ([facility]</td><td>08/30/2019</td><td></td> [facility] EDT - [facility] 08/30/2019 Health 11:59:00 PM Center) EDT Outpatient<td ID="[id number]">OFFICE Attender: Wu 08/30/2019 A RADHA VISIT</td><td>[facility]</td><td>[facility] 10:30:00 AM r ([facility]</td><td>08/30/2019</td><td><content [facility] EDT - t Neighborhood ID="[id number]">Diabetes Mellitus</content>, [facility] Center 08/30/2019 Health <content ID="[id number]">Arthralgia - Ankle 11:48:38 AM r Center) / [...] Mellitus Diabetes Mellitus Outpatient<td Attender: Wu 08/18/2019 IRVING ID="[id number]">PATIENT [facility] 10:10 :00 AM (Annia King [facility]</td><td>[facility] ([place], [place]) EDT - [facility]</td><td>[facility] 2019 Health Center</td><td>08/18/2019</td><td></td> 11:59:0 0 PM Center) EDT Outpatient<td Attender: Wu 08/17/2019 RADHA ID="[id number]">*Chart [facility] 03:30: 00 PM (Annia King Update*</td><td>[facility] EDT - [facility] BROTH MIXER</td><td>[facility] 08/17/2019 Health Center</td><td>08/17/2019</td><td></td> 11:59:0 0 PM Center) EDT Outpatient<td Attender: Wu 08/17/2019 RADHA ID="[id number]">PATIENT [facility] 10:06 :00 AM (Annia King ADVOCACY</td><td>[facility]</td><td>[facility] 2019 [facility]</td><td>08/17/2019</td><td></td> 11:59:0 0 PM Center) EDT OutpatientOFFICE/OUTPATIENT VISIT, EST Attender: Mental 08/16/19 20 [facility] 10:49:00 AM ([facility] 08/16/2019 Medical 10:49:00 AM Center) EDT Outpatient<td Attender: Wu 08/10/2019 RADHA ID="[id number]">*No [facility] 04:25:00 PM (Annia King Show*</td><td>[facility]</td><td>[facility] 08/10/2019 Health Center</td><td>08/10/2019</td><td></td> 11:59:0 0 PM Center) EDT Outpatient<td Attender: Wu 07/27/2019 RADHA ID="[id number]">PATIENT [facility] 12:35 :00 PM (Annia King ADVOCACY</td><td>[facility] ([place], [place]) EDT [facility]</td><td>[facility] 2019 Health Center</td><td>07/27/2019</td><td></td> 11:59:0 0 PM [place]) EDT Outpatient<td Attender: Wu 07/27/2019 IRVING ID="[id number]">[facility] 11:30: 00 AM ([place] VISIT</td><td>[facility] - [facility]</td><td>[facility] 07/27/2019 Health Center</td><td>07/27/2019</td><td></td> 11:10:1 5 AM [place]) EDT Outpatient<td Attender: Wu 07/27/2019 D [place] ID="ue[id number]">[facility] 10:3 0:00 AM e (Annia King /td><td>[facility]</td><td>[facility] EDT - r [facility] BROTH MIXER Center 07/27/2019 [facility]</td><td>07/27/2019</td><td><content 12:0 5:27 PM a [place]) ID="[id number]">Diabetes EDT t Mellitus</content>, <content o ID="[id number]">Hypertension p (systemic)</content>, <content h ID="[id number]">Dermatophyto y sis</content></td> t o s i s [...] Mellitus Hypertension (systemic) Diabetes Mellitus Outpatient<td Attender: [place] 07/26/2019 IRVING ID="[id number]">*OUTREACH*</td><td>[facility] 11:01:00 AM ([facility]</td><td>[facility] E DT - [facility] Center</td><td>07/26/2019</td><td></td> [facility] Center 020 Health 11:59:00 PM Center) EDT Outpatient<td ID="hi[id number]">Regular Attender : Wu 07/25/2019 RADHA Sonogram</td><td>DANA WANG MD</td><td>[facility] 11:00:00 AM ([facility]</td><td>07/25/2019</td><td></td> FELIPE BAIRES [facility] EDT [facility] 07/25/2019 Health 12:57:04 PM Center) EDT Attender: Mental 07/18/2019 [facility] 06:19:00 PM ([facility] 07/18/2019 Medical 06:19:00 PM Center) EDT Outpatient<td ID="[id number]">OFFICE Attender: Wu 06/29/2019 RADHA VISIT</td><td>Yvonne Sanchez DPM</td><td>[facility] 02:30:00 PM ([facility]</td><td>06/29/2019</td><td></td> Dalton DPM [facility] EDT [facility] 06/29/2019 Health 01:01:40 PM Center) EDT Outpatient<td ID="[id number]">OFFICE Attender: Wu 06/29/2019 L [place] VISIT</td><td>[facility] BROTH MIXER</td><td>[facility] 11:30:00 AM u ([facility]</td><td>06/29/2019</td><td><content [facility] EDT - m Neighborhood ID="[id number]">Lumbago</content></td> BROTH MIXER Cente r 06/29/2019 b Health 01:43:54 PM [facility]) EDT g o L u m [...] Lumbago Lumbago Lumbago Lumbago Lumbago Outpatient<td Attender: [place] 06/26/2019 RADHA ID="[id number]">PATIENT [facility] 12:29 :00 PM ([facility]</td><td>[facility], [place] EDT [facility]</td><td>[facility] 2019 Health Center</td><td>06/26/2019</td><td></td> 11:59:0 0 PM Center) EDT Outpatient<td Attender: [place] 06/26/2019 E [place] ID="qi[id number]">[facility] 12:0 0:00 PM d ([place] /td><td>[facility]</td><td>[facility] EDT [facility] BROTH MIXER Center 06/26/2019 Health Center</td><td>06/26/2019</td><td><content 02:0 7:36 PM a Center) ID="[id number]">Lumbago with EDT L Sciatica</content>, <content u ID="[id number]">Edema</renetta m nt></td> b a g o w [...] OutpatientOFFICE/OUTPATIENT Attender: Adolfo Russell 06/20/2019 NEXTGEN VISIT, [facility] 01:17:00 PM [facility] - Tw[place] Portillo 06/20/2019 Medical 01:17:00 PM Center) EDT Outpatient<td Attender: Yvonne Washburn 06/08/2019 ASHLI ZHOU ID="encounterTypeDescription Dalton DPM [facility] 02:42:00 PM (Annia Kign ID24">*No Health EST - Neighborhood Show*</td><td>[facility] 06/08/2019 Health DPM</td><td>[place] 11:59:00 PM Cent ) [facility] EST [place]</td><td>06/08/2019</t d><td></td> Outpatient<td Attender: Melissa Washburn 06/06/2019 NADEGE MCKEON ID="encounterTypeDescription [facility] 05:00:00 PM (Annia King ID25">[facility]</td><td>[facility] 06/06/2019 Alfredo alth Mcgill</td><td>[place] 11:59:00 PM [place]) [facility] EST Center</td><td>06/06/2019</t d><td></td> Outpatient<td Attender: Melissa Washburn 06/05/2019 NADEGE MCKEON ID="encounterTypeDescription Mcgill [facility] 03:59:00 PM ([place] ID26">PATIENT Health EST - Neighborhoo d ADVOCACY</td><td>[facility] 06/05/2019 He alth [place]gill</td><td>Wu 11:59:00 PM Center) [facility] EST Center</td><td>06/05/2019</t d><td></td> Outpatient<td Attender: BILLIE Wu 06/05/2019 Diabvini LIGHT ID="encounterTypeDescription DION [facility] 10:45:00 AM s (Annia King ID27">WALKINS</td><td>[facility]</td><td>[facility] 12[facility]46[facility]43 PM Center) Center</td><td>06/05/2019</t EST Mellitu d><td><content sDiabet ID="jsmxxrttyBozkqrhofSE91-0 es ">Diabetes Mellitu Mellitus</content></td> sDiabet es Mellitu [...] Diabetes Mellitus Outpatient<td Attender: Wu 05/27/2019 RADHA ID="udcitleupWejyRahopcysjsvTH39">*No KORY [facility] 01:44:00 PM (Annia King Show*</td><td>[facility] - Neighborhood MD</td><td>[facility] MD Center 05/27/2019 Health Center</td><td>05/27/2019</td><td></td> 11:59:0 0 PM Center) EST Individual Psychotherapy (30 Min) Attender: Mental 05/23/2019 [facility] 05:12:00 PM ([facility] 05/23/2019 Medical 05:12:00 PM Center) EST OutpatientOFFICE/OUTPATIENT VISIT, EST Attender: Mental 05/23/19 20 [facility] 01:40:00 PM ([facility] nder: 05/23/2019 Medical Isaiah 01:40:00 PM Center) Darer EST Outpatient<td Attender: Wu 05/20/2019 P RADHA ID="qttfoihleHtgfEoisvsjkpncMU21">[facility] 12:00: 00 PM o ([place] S</td><td>[facility] MD</td><td>[facility] 05/20/2019 y Health Center</td><td>05/20/2019</td><td><renetta 02:20: 54 PM n Center) nt EST e ID="mlbjkjdkiDcjgixqdjXA99-3">Assess/int u erv Future Fall Risk Document No Fall in r Past Year</content>, <content o ID="xblbouyziThbadmmfhHE48-5">Coronary p Artery Disease</content>, <content a ID="kvrnzjpztAhcvwtjfoKV48-3">Diabetes t Mellitus</content>, <content h ID="mjeszwypyUnaehooyfRK67-6">Depression y </content>, <content O ID="fjvvxcljjTevtdrfzxGJ96-7">Essential b Hypertension</content>, <content e ID="likbhlgcwTsudxyqczIO16-6">Hyperchole s sterolemia</content>, <content i ID="kucguxxwmGzdqdiznuNB65-4">Obesity</c t ontent>, <content y ID="qeghrfmivFsthocghzMP80-1">Epilepsy</ D content>, <content e ID="ivaehvixyGlrcrjwusGE23-7">Polyneurop p athy</content></td> r e s s i [...] Artery Disease Outpatient<td Attender: Wu 05/02/2019 Diabetes IRVING ID="bnggshwauJswdNfljozynmkaKM33">*Phone*</td><td>BILLIE [facility] 03:55:00 PM MellitusDiabetes ([facility]</td><td>[facility] EST - MellitusDiabetes [facility]</td><td>05/02/2019</td><td><content BROTH MIXER Center 05/02/2019 MellitusDiabetes Health ID="tvddbkctjVomqkqqfvBW80-3">Diabetes 11:59:00 PM MellitusDiabetes Center) Mellitus</content></td> EST MellitusDiab [...] Mellitus Individual Attender: Mental 04/25/2019 NEXTGEN Psychotherapy 05:33:00 PM ([facility] (30 Min) [facility] ROB Twyla 04/25/2019 Medical 05:33:00 PM Center) EST OutpatientOFFIC Attender: Mental 04/25/2019 NEXTGEN E/OUTPATIENT 11:56:00 AM ( VISIT, EST [facility] Colon 04/25/2019 Medical D[place] 11:56:00 AM Center) EST Outpatient Attender: H 04/25/2019 [facility] 10:36:00 AM [facility] Center : PADMINI VESIRVING Catalan r: SHRAVAN COLON Attender: Mental 04/25/2019 NEXTGEN [facility] 10:36:00 AM ([facility] 04/25/2019 Medical 10:36:00 AM Center) EST 04/25/2019 [facility] 12:00:00 AM Medical EST Center Individual Attender: Mental 03/28/2019 NEXTGEN Psychotherapy 04:58:00 PM ([facility] (30 Min) [facility] 03/28/2019 Medical 04:58:00 PM Center) EST OutpatientOFFIC Attender: Mental 03/28/2019 NEXTGEN E/OUTPATIENT 11:10:00 AM ([facility] SHANNON, [facility] r: Isaiah 03/28/2019 Medical D[place] 11:10:00 AM Center) EST Outpatient<td Attender: Wu 03/27/2019 IRVING ID="encounterTy BILLIE [facility] 09:32:00 AM (Annia locke peDescriptionID [facility] 31">*OUTREACH*< Center 03/27/2019 Health /td><td>BILLIE 11:59:00 PM Center) [facility]</td><td>[facility]</td><td> 03/27/2019</td> <td></td> Outpatient<td Attender: Wu 03/24/2019 IRVING ID="encounterTy KORY [facility] 03:16:00 PM (Annia locke peDescriptionID GUY BAIRES [facility] EST - [facility] moon 32">*OUTREACH*< Center 03/24/2019 Health /td><td>KORY 11:59:00 PM Center) GUY RIVAS MD</td><td>[facility]</td><td> 03/24/2019</td> <td></td> Outpatient<td Attender: Wu 03/23/2019 IRVING ID="enc[facility]Ty [facility] 12:19:00 PM (Moun t Fernando peDescriptionID Health EST - Neighborh ood 33">PATIENT Center 03/23/2019 Health ADVOCACY</td><t 11:59:00 PM Center) d>Melissa [facility]</td><td >[facility]</td><td> 03/23/2019</td> <td></td> Outpatient<td Attender: Wu 03/20/2019 Overanxious IRVING ID="encounterTy [facility] 11:30:00 AM DisorderUrinary (Mo unt Fernando peDescriptionID [facility] Health EST - RetentionEpilepsy and Neighborhood 34">WALKINS</td Center 03/20/2019 Recurrent Health ><td>BILLIE 12:20:12 PM SeizuresOveranxious Cent er) DION EST DisorderUrinary BROTH MIXER</td><td>Yon RetentionEpilepsy an d [facility] Recurrent Health SeizuresOveranxious Center</td><td> DisorderUrinary 03/20/2019</td> RetentionEpilepsy an d <td><content Recurrent ID="encounterDi SeizuresOveranxious fsnqrjqUA25-1"> DisorderUrinary Diabetes RetentionEpilepsy and Mellitus</renetta Recurrent nt>, <content SeizuresOveranxious ID="encounterDi DisorderUrinary sbtngoyHX65-0"> RetentionEpilepsy an d Epilepsy and Recurrent Recurrent SeizuresOveranxious Seizures</renetta DisorderUrinary nt>, <content RetentionEpilepsy and ID="encounterDi Recurrent gocvivzGL38-4"> SeizuresOveranxious Hypertension DisorderUrinary (systemic)</con RetentionEpilepsy an d tent>, <content Recurrent ID="encounterDi SeizuresOveranxious osrzohwMY27-7"> DisorderUrinary Urinary RetentionEpilepsy and Retention</cont Recurrent ent>, <content SeizuresOveranxious ID="encounterDi DisorderUrinary trrezflFN74-5"> RetentionEpilepsy an d Overanxious Recurrent Disorder</renetta SeizuresOveranxious [...] (systemic) Diabetes Mellitus Outpatient<td Attender: Wu 03/16/2019 IRVING ID="vmuqygitpKpmgWrkovqnqpztLV34">*Cassandra Yvonne [facility] 04:28:00 PM ([place] Show*</td><td>Yvonne Sanchez [facility]</td><td>[facility] 03/16/2019 Health Center</td><td>03/16/2019</td><td></td> 11:59:0 0 PM Center) EST OutpatientOFFICE/OUTPATIENT VISIT, EST Attender: Mental 02/29/20 [facility] 03:17:00 PM ([facility] nder: 02/28/2019 Medical Isaiah 03:17:00 PM Center) Darer EST Attender: Mental 02/17/2019 [facility] 10:33:00 AM ([facility] 02/17/2019 Medical 10:33:00 AM Center) EST Outpatient<td Attender: Wu 02/01/2019 H IRVING ID="pwowzvrnfPtfuYlmfhrgkcngJG83">[facility] 11:30: 00 AM y ([place]</td><td>SEBASTIAN KIMBROUGH MD</td><td>Wu KIMBROUGH MD Health EDT - p [facility] 02/01/2019 e Health Center</td><td>02/01/2019</td><td><ren[place] 12:32: 12 PM r Center) nt EDT c ID="ockonckifZuhjwbloyDJ01-9">Obesity</c h ontent>, <content o ID="tydlmebghMooknkealJR80-7">Diabetes l Mellitus Type 2 - Uncomplicated, e Uncontrolled</content>, <content s ID="nltycpyeqLtcweyyrsFR99-9">Arthralgia t - Knee / Patella / Tibia / Fibula e Right</content>, <content r ID="prtdayflfXyvdzbpkqFH83-1">Arthralgia o - Knee / Patella / Tibia / Fibula l Left</content>, <content e ID="yfccncfzrUtljxltbtMF94-0">Essential m Hypertension</content>, <content i ID="tcmseceibWcifugqleKT79-2">Epilepsy</ a content>, <content A ID="mvfqrjzimVwioecljuWA56-0">Epilepsy</ r content>, <content t ID="qvcsvgnewDiohpiqhjCB85-8">Hyperchole h sterolemia</content></td> r a l g i [...] - Uncomplicated , Uncontrolled OutpatientOFFICE/OUTPATIENT Attender: Adolfo [facility] 01/16/2019 NEXTGEN VISIT, [facility] 03:17:00 PM ([facility] Clinic ED[facility] - [facility] 01/16/2019 Medical 03:17:00 PM Center) EDT Attender: Isaiah [facility] 01/16/2019 [facility] 03:17:00 PM ([facility] 01/16/2019 Medical 03:17:00 PM Center) EDT Attender: Padmini [facility] 01/09/2019 [facility] 12:08:00 PM ([facility] 01/09/2019 Medical 12:08:00 PM Center) EDT Outpatient<td Attender: Wu 12/29/2018 RADHA ID="encounterTypeDescription [facility] 04:27:00 PM (Annia King ID37">*No Health EDT - Neighborhood Show*</td><td>JUDD ROBER Center 12/29/[address]</td><td>[facility] 11:59:00 PM Center) Health EDT Center</td><td>12/29/2018</t d><td></td> Individual Psychotherapy (30 Attender: Adolfo [facility] 12/21/2018 NEXTGEN Min) [facility] 03:15:00 PM ([facility] EDT [facility] 12/21/2018 Medical 03:15:00 PM Center) EDT OutpatientOFFICE/OUTPATIENT Attender: Adolfo [facility] 12/21/2018 [facility] V[facility]IT, [facility] 01:13:00 PM ([facility] - [facility] 12/21/2018 Medical 01:13:00 PM Center) EDT Outpatient<td Attender: Yvonne Washburn 12/15/2018 [facility] ID="encounterTypeDescription [facility] 02:30:00 PM (Annia King ID38">OFFICE Health EDT - Neighborhood VISIT</td><td>[facility] 12/15/2018 Health DPM</td><td>Wu 01:26:07 PM Cent er) [facility] EDT Center</td><td>12/15/2018</t d><td></td> Outpatient<td Attender: Wu 12/15/2018 Marychuyinocente IRVING ID="encounterTypeDescription [facility] 12:15:00 PM ghtOver ([place] ID39">WALKINS</td><td>[facility] EDT - weightO Neighborhood [facility] 12/15/2018 verweig Health BROTH MIXER</td><td>Wu 12:53:18 PM htOverw Cent er) [facility] EDT eightOv Center</td><td>12/15/2018</t erweigh d><td><content tOverwe ID="whzhrowwxDtqfjvlyaGL02-4 ightOve ">Lumbago</content>, rweight <content Overwei ID="ghueegwswNvizzoemkXP01-6 ghtOver ">Overweight</content>, weightO <content verweig ID="plnryqgbwFoaekeftyAO67-8 htOverw ">Diabetes eightOv Mellitus</content></td> erweigh tOverwe ightOve rweight Overwei ghtOver weightO verweig htOverw eightOv erweigh tOverwe ightOve rweight Overwei ghtOver weightO verweig htOverw eightOv erweigh tOverwe ightOve rweight Overwei ghtOver weightL umbagoL umbagoL umbagoL umbagoL umbagoL umbagoL umbagoL umbagoL umbagoL umbagoL umbagoL umbagoL umbagoL umbagoL umbagoL umbagoL umbagoL umbagoL umbagoL umbagoL umbagoL umbagoL umbagoL umbagoL umbagoL umbagoL umbagoL umbagoL umbagoL umbagoD iabetes Mellitu sDiabet es [...] Mellitus Diabetes Mellitus Hypertension (systemic) Outpatient<td Attender: [place] 12/14/2018 IRVING ID="stshpisvdBjhpWzwqzucsimeCZ38">*Phone*</td><td>[facility] 05:18[facility]00 PM ([facility]</td><td>[facility] ED T - [facility] Center</td><td>12/14/2018</td><td></td> [facility] Center [address] [place] [address] 11:59:00 PM Center) EDT Individual Psychotherapy (30 Min) Attender: Mental 11/23/2018 [facility] 05:45:00 PM ([facility] EDT [facility] 11/23/2018 Medical 05:45:00 PM Center) EDT OutpatientOFFICE/OUTPATIENT VISIT, EST Attender: Mental 11/24/19 [facility] 01:16[facility]00 PM ([facility] EDT - [facility] nder: 11/23/2018 Medical Isaiah 01:16:00 PM Center) Darer EDT Outpatient<td Attender: Wu 11/21/2018 H IRVING ID="ezdlylauqBktfPmjkitmizldHI21">[facility]</td><td>[facility] 11:30:00 AM y ([facility] BROTH MIXER</td><td>[facility] ED T - p Neighborhood Center</td><td>11/21/2018</td><td><content BROTH MIXER Center 11/10 e Health ID="jesgxnvyyGbbnshszcPC23-3">Diabetes Mellitus</content>, 01:08:08 PM r Center) <content ID="mcbiyiiiyJlolwjgjvEI64-5">Obesity</content>, EDT l <content i ID="xynzjpehcSkmgmydaaZQ79-8">Hyperlipidemia</content></td> p i d e m i a [...] Mellitus Diabetes Mellitus Individual Attender: Mental 10/26/2018 NEXTGEN Psychotherapy 06:12:00 PM ( (30 Min) [facility] EDT [facility] 10/26/2018 Medical 06:12:00 PM Center) EDT OutpatientOFFI Attender: Mental 10/26/2018 NEXTGEN CE/OUTPATIENT 01:46:00 PM (Saint VISIT, EST [facility] ED[facility] nder: 10/26/2018 Medical Isaiah 01:46:00 PM Center) Darer EDT Outpatient<td Attender: Wu 10/24/2018 RADHA ID="encounterT [facility] 11:24:00 AM (Annia Johnson rnmission valley medical centereDHemera BiosciencescriptOakleaf Surgical HospitalT - [facility] od ID42">*OUTREAC BROTH MIXER Center 10/24/2018 Health H*</td><td>GIF 11:59:00 PM Center) [facility] EDT BROTH MIXER</td><td>[facility]</td><td >10/24/2018</t d><td></td> Outpatient<td Attender: Wu 2018 RADHA ID="encounterT [facility] 04:28:00 PM (Annia Johnson [facility] hospitaleDescriptBon [facility] EDT [facility] od ID43">PATIENT Center 2018 Health ADVOCACY</td>< 11:59:00 PM Center) td>Melissa EDT [facility]</td><t d>[facility]</td><td >2018</t d><td></td> Outpatient<td Attender: Wu 10/18/2018 RADHA ID="encounterT [facility] 10:35:00 AM (Annia Johnson [facility] hospitaleDUNM Children[facility] HospitalT [facility] od ID44">PATIENT Center 10/18/2018 Health ADVOCACY</td>< 11:59:00 PM Center) td>[facility]</td><t d>[facility]</td><td >10/18/2018</t d><td></td> Outpatient<td Attender: Wu 10/18/2018 DepressionDepressionDe press IRVING ID="encounterT [facility] 09:00:00 AM ionDepressionDepress ionDepr (Annia King ypeDescriptAffinity Health Partners EDT - essionDepressionDepre ssionD Neighborhood ID45">OFFICE BROTH MIXER Center 10/18/2018 epressionDepressionDepr essi Health VISIT</td><td> 11:18:39 AM onDepressionDepressi onDepre Center) [facility] EDT ssionDepressionDepres sionDe BROTH MIXER</td><td>Yo pressionDepressionDep ressio nkers nDepressionDepressionDepr [facility] sionDepressionDepressionD Health matology Non-infectious Center</td><td NailsBackacheAnemiaEp ilepsy >10/18/2018</t and Recurrent Seizure sRenal d><td><content CystDermatology ID="encounterD Non-infectious bckeoqtuCW87-9 NailsBackacheAnemiaEp ilepsy ">Renal and Recurrent SeizuresRen al Cyst</content> CystDermatology , <content Non-infectious ID="encounterD NailsBackacheAnemiaEp ilepsy kvdlzejbML20-8 and Recurrent Seizure sRenal ">Epilepsy and CystDermatology Recurrent Non-infectious Seizures</cont NailsBackacheAnemiaEp ilepsy ent>, <content and Recurrent Seizure sRenal ID="encounterD CystDermatology uzqgjapyPO81-9 Non-infectious ">Diabetes NailsBackacheAnemiaEpilep sy Mellitus</cont and Recurrent Seizure sRenal ent>, <content CystDermatology ID="encounterD Non-infectious dtkmynwcYK85-9 NailsBackacheAnemiaEp ilepsy ">Anemia</cont and Recurrent Seizure sRenal ent>, <content CystDermatology ID="encounterD Non-infectious ozveaztnKU12-0 NailsBackacheAnemiaEp ilepsy ">Backache</co and Recurrent Seizure sRenal ntent>, CystDermatology <content Non-infectious ID="encounterD NailsBackacheAnemiaEp ilepsy dbwfodmlHP73-3 and Recurrent Seizure sRenal ">Depression</ CystDermatology content>, Non-infectious <content NailsBackacheAnemiaEpilep sy ID="encounterD and Recurrent Seizure sRenal rtswkhqdLK72-6 CystDermatology ">Dermatology Non-infectious Non-infectious NailsBackacheAnemiaEp ilepsy Nails</content [...] OutpatientOFFICE/OUTPATIENT Attender: Adolfo Russell 09/28/2018 NEXTGEN VISIT, [facility] 01:47:00 PM ([facility] Hospital[facility] EDT - Twyla Portillo 09/28/2018 Medical 01:47:00 PM Center) EDT Outpatient<td Attender: Wu 09/13/2018 [facility] ID="encounterTypeDescription [facility] 11:00:00 AM pidemia ([place] ID46">WALKINS</td><td>[facility] EDT - Epileps [facility] 09/13/2018 y and Health [facility]</td><td>Wu 01:43:15 PM Recurre Cent er) [facility] EDT [facility]</td><td>09/13/2018</t Seizure d><td><content sUrinar ID="uptnxusilAybhfyeupCT90-0 y Tract ">Diabetes Infecti Mellitus</content>, <content onOverw ID="uxrnnczwbJpxnepccwFE34-3 eightHy ">Overweight</content>, perlipi <content demiaEp ID="dylfpsmfzVmfulqiolJF10-6 ilepsy ">Urinary Tract and Infection</content>, Recurre <content nt ID="nbndmbdmbIiacervdgSZ24-8 Seizure ">Epilepsy and Recurrent sUrinar Seizures</content>, <content y Tract ID="rdihlijssSenspsbniMZ81-8 Infecti ">Hypertension onOverw (systemic)</content>, eightHy <content perlipi ID="lnxswixmiGjtlpexrpYU83-9 demiaEp ">Hyperlipidemia</content></ ilepsy td> and Recurre nt [...] Diabetes Mellitus Outpatient<td Attender: Wu 09/13/2018 RADHA ID="cabxkmvuiAayhPsdprbnqgsaZE81">PATIENT [facility] 10:38 :00 AM (Annia King ADVOCACY</td><td>[facility] [place] EDT [facility]</td><td>[facility] 2018 Health Center</td><td>09/13/2018</td><td></td> 11:59:0 0 PM Center) EDT Attender: Mental 09/09/2018 [facility] 02:33:00 PM ([facility] 09/09/2018 Medical 02:33:00 PM Center) EDT Outpatient<td Attender: Wu 09/01/2018 RADHA ID="smuwqerkqSbwjZfcumxrwyseAC48">*No Yvonne [facility] 04:28:00 PM (Annia King Show*</td><td>Yvonne Darnellsom [facility] ED[facility]</td><td>[facility] 09/01/2018 Health Center</td><td>09/01/2018</td><td></td> 11:59:0 0 PM Center) EDT OutpatientOFFICE/OUTPATIENT VISIT, EST Attender: Mental 09/01/19 19 [facility] 01:27:00 PM ([facility] nder: 08/31/2018 Medical Isaiah 01:27:00 PM Center) Darer EDT Outpatient<td Attender: 08/30/2018 RADHA ID="fiauyyjqcQbxpFoomcvgpabbSL57">*NBA WOLFE 09:2 3:00 AM (Annia King *</td><td>YANETH AGYEPONG BROTH MIXER</td><td> AGYEPONG EDT - [facility] BROTH MIXER 08/30/2018 Health </td><td>08/30/2018</td><td></td> 11:59:00 PM Center) EDT Outpatient<td Attender: [place] 08/26/2018 T RADHA ID="yqfiwriosTzkoCvvhdfqhmizUY25">[facility] 12:0 0:00 PM h ([place] /td><td>[facility]</td><td>[facility] EDT - r [facility] 08/26/2018 o [facility]</td><td>08/26/2018</td><td><content 01:5 4:52 PM [facility]) ID="niomtbfoaLgqaqqgyrJT78-9">Arthralgia - EDT b Ankle / Foot Right</content>, <content o ID="iuksfmcpeRlgbsyrshTE40-6">Arthralgia - c Right Ankle</content>, <content y ID="ohldvqkmcXyyeazmzyWO91-1">Thrombocytop t enia</content>, <content o ID="vzovkbxwrSmcucqfikNP35-0">Allergic p Rhinitis</content>, <content e ID="fcvkbapjiZvdbgjezoJT03-7">Overweight</ n content></td> i a A r t [...] Foot Right Outpatient<td Attender: Annia King 08/25/2018 IRVING ID="rgjkltfcdSqcyMpbnfxuiweuOP46">*[facility] 12:3 1:00 PM (Annia King Update*</td><td>[facility] EDT - Neighborhood </td><td>Annia Downs MD 08/25/2018 Health Health 11:59:00 PM [facility]</td><td>08/25/2018</td><td></td> EDT Outpatient<td Attender: Wu 08/17/2018 IRVING ID="extutztmhPrwxXvkysiheobcEX17">*[facility] 02:49:00 PM (Annia King Show*</td><td>LOULOU CHRISTIANSEN MD Health Center EDT [facility] </td><td>[facility] 08/17/2018 Health Center</td><td>08/17/2018</td><td></td> 11:59:0 0 PM Center) EDT Outpatient 08/15/2018 [facility] 04:29:00 PM Medical EDT Center Attender: Mental Health 08/15/2018 [facility] 03:38:00 PM ([facility] 08/15/2018 Medical 03:38:00 PM Center) EDT Outpatient<td Attender: Wu 08/15/2018 RADHA ID="hdncbnfjaLefoRnzgjhzlsnbKG50">*[facility] 11:47 :00 AM (Annia King CH*</td><td>[facility]</td><td>[facility] 08/15/2018 Health Center</td><td>08/15/2018</td><td></td> 11:59:0 0 PM Center) EDT Outpatient 08/15/2018 [facility] 12:00:00 AM Medical EDT Center Outpatient<td Attender: Wu 08/12/2018 RADHA ID="mnhnfxkzmOilxDlntdfrgtsfUK92">EKG</td [facility] 04:00 :00 PM (Annia King ><td>RONAL FLORES MD</td><td>Wu FLORES MD Health Center EDT [facility] 08/12/2018 Health Center</td><td>08/12/2018</td><td></td> 11:59:0 0 PM Center) EDT Outpatient<td Attender: Wu 08/12/2018 E RADHA ID="iyiklactoGtehXgcbpfircotIJ01">[facility] 02:[facility]00 PM p (Annia King </td><td>[facility] EDT [facility] BROTH MIXER</td><td>[facility] 08/12/2018 [facility]</td><td>08/12/2018</td><td><conten 02:59 :59 PM e Center) t ID="udoyojmkxWobxeptibIK14-9">Epilepsy EDT p and Recurrent Seizures</content>, s <content y ID="uvxdufsrjGonamnltsSF61-7">Hypertensio a n (systemic)</content></td> n d R e [...] Hypertension (systemic) Outpatient<td Attender: Wu 08/11/2018 AtelectasisDermatology IRVING ID="ymcnukwtsJtppFxihkhkkfznJS84">[facility]</td><td>[facility] 02:15:00 PM Non-infectious ([facility]</td><td>[facility] EDT - NailsAtelectasisDermatology [facility]</td><td>08/11/2018</td><td><content BROTH MIXER Center 05/2018 Non-infectious Health ID="nwlogikwtBdyisdkqnBC75-3">Diabetes 02 :45:35 PM NailsAtelectasisDermatology Center) Mellitus</content>, <content EDT Non-inf ectious ID="uopmrjivsGhkkcvbtjPK79-9">Dermatology Non-infectious NailsAtelectasisDermatology Nails</content>, <content Non-infect ious ID="npkjnpywlAddvushbdAI42-9">Atelectasis</content></td> NailsAtelectasisDermatology Non-infectious NailsAtelectasisDermatolo gy Non-infectious NailsAtelectasisDermatolo gy [...] Attender: Wu 08/11/2018 Acquired Deformity GRE ENWAY ID="qfphfkcioLcehQhusfyngddxBL33">OFFICE [facility] 12:00:00 PM of Toe - Hammer Toe ([place] VISIT</td><td>[facility] DPM Health EDT - Left Neighborhood DPM</td><td>[facility] Center 08/11/2018 Semi-rigidAcquired Health Center</td><td>08/11/2018</td><td><content 12:5 0:24 PM Deformity of Toe - Center) ID="trrtjmfodTehcgtbzrEW30-4">Tendonitis EDT Hammer Toe Right Achilles</content>, <content Semi-ri gidAcquired ID="vhjzxzlnpMzeyhvcjzTW79-7">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</content>, <content Fourth Toe Acquired ID="obceknqwcDvbnseyvsCO23-4">Acquired Deformity of Toe - Deformity of Toe - Hammer Toe Right Second Hammer Toe Left Toe</content>, <content Third ToeAcq uired ID="uxzgldgnwMcesadfpxFQ99-8">Acquired Deformity of Toe - Deformity of Toe - Hammer Toe Right Third Hammer Toe Left Toe</content>, <content Second ToeAc quired ID="hobmklevlMvnbzgjcfHI22-3">Acquired Deformity of Toe - Deformity of Toe - Hammer Toe Right Fourth Hammer Toe Toe</content>, <content LeftAcquired ID="eqktmkiboFycyrorvrLX62-7">Acquired Deformity of Toe - Deformity of Toe - Hammer Toe Hammer Toe Right Left</content>, <content Fourth ToeA cquired ID="fuozeuqiiPcvylzictZR13-5">Acquired Deformity of Toe - Deformity of Toe - Hammer Toe Left Second Hammer Toe Right Toe</content>, <content Third ToeAcq uired ID="khfgtegxzEbngptluxSS40-2">Acquired Deformity of Toe - Deformity of Toe - Hammer Toe Left Third Hammer Toe Right Toe</content>, <content Second ToeAc quired ID="[id number]">Acquired Deformity of Toe - Deformity of Toe - Hammer Toe Left Fourth Hammer Toe Toe</content>, <content RightTendoni tis ID="[id number]">Acquired AchillesAcquired Deformity of Toe - Hammer Toe Right Deformity of Toe - Semi-rigid</content>, <content Hamme r Toe Left ID="[id number]">Acquired Semi-rigidAcquired Deformity of Toe - Hammer Toe [...] Deformity of Toe - Hammer Toe R [facility] Tendonitis Achilles Acquired Deformity of Toe [...] Toe R ight Tendonitis Achilles Outpatient 08/10/2018 [facility] 04:27:00 PM Medical EDT Center Outpatient<t Attender: Wu 08/10/2018 [facility] 02:51:00 PM ([place] [facility] 08/11/2018 Health [id number]">[place] 11:59:00 PM Center) TIENT EDT ADVOCACY</td ><td>Melissa Mcgill</td> <td>[facility]</td>< td> 9</td><td></ td> Outpatient 08/10/2018 [facility] 12:00:00 AM Medical EDT Center Attender: Mental 08/09/2018 [facility] 11:55:00 AM ([facility] EDT [facility] 08/09/2018 Medical 11:55:00 AM Center) EDT OutpatientOF Attender: Mental 08/03/2018 [facility] 01:15:00 PM ([facility] ENT VISIT, [facility] EDT [facility] EST nder: 08/03/2018 [facility] 01:15:00 PM Center) Darer EDT Outpatient<t Attender: Wu 07/28/[address] [facility] 03:20:00 PM (Annia King ID="[facility] 07/28/2018 [facility] [id number]">*N 11:59:00 PM Center) o EDT Show*</td><t d>JUDD AHUJA RD</td><td>[facility]</td>< td> 9</td><td></ td> Outpatient<t Attender: Wu 07/28/2018 [facility] 02:00:00 PM (Annia King [facility] - Neighborhood ypeDProMedica [facility] 07/28/2018 Health [id number]">OF 11:59:00 PM Center) FICE EDT VISIT</td><t d>[facility]</td><td> [facility]</td>< td> 9</td><td></ td> Outpatient<t Attender: Wu 07/22/2018 [facility] 12:41:00 PM (Annia King ID="[facility] EDT - Neighborhood rTypeDescrip BROTH MIXER Center 07/22/2018 Health [id number]">*O 11:59:00 PM Center) AMARILIS*</td EDT ><td>BILLIE ASHLEY BR[employer] MIXER</td><td> [facility]</td>< td> 9</td><td></ td> Outpatient<t Attender: Wu 07/21/2018 Pain in RADHA d [facility] 01:30:00 PM LimbLeukopeniaAnemiaPain in (Annia King ID="[facility] EDT - LimbLeukopeniaAnemiaPai n in Neighborhood rTypeDlisacrip [facility] Center 07/21/2018 LimbLeukopeniaAnemiaPai n in [facility]62">[place] 04:23:50 PM LimbLeukopeniaAnemiaPa in in Center) LKINS</td><t EDT LimbLeukopeniaAnemiaPai n in d>[facility] LimbLeukopeniaAnemiaPain in [facility] LimbLeukopeniaAnemiaPain in [facility]</td><td> LimbLeukopeniaAnemiaPai n in [place] LimbLeukopeniaAnemiaPain in [facility] LimbLeukopeniaAnemiaPain in [facility] LimbLeukopeniaAnemiaPain in Center</td>< LimbLeukopeniaAnemiaPai n in td> [...] Disease Diabetes Mellitus Outpatient<td Attender: Wu 07/21/2018 IRVING ID="aakutncrsLqetAvhpndiraxlUZ62">PATIENT Melissa [facility] 09:47 :00 AM ([place] ADVOCACY</td><td>[facility]</td><td>[facility] 2018 Health Center</td><td>07/21/2018</td><td></td> 11:59:0 0 PM Center) EDT Outpatient<td Attender: Wu 07/18/2018 A RADHA ID="nihgxihnhKfghEadlurcycjtST27">[facility] 01:1 5:00 PM s ([place] /td><td>[facility] EDT - s [facility] BROTH MIXER</td><td>[facility] BROTH MIXER Center 07/18/2018 e Health Center</td><td>07/18/2018</td><td><content 03:4 5:09 PM s Center) ID="[id number]">Diabetes EDT s Mellitus</content>, <content / ID="zzadteohmGngfffczqMX84-2">Obesity</con i tent>, <content n ID="mupwpljyqGxvhtuddhGT25-8">Hypertension t (systemic)</content>, <content e ID="hzybtukipFobycfoksBQ63-1">Assess/inter r vention Patient Screened For Future Fall [...] Diabetes Mellitus Outpatient<td Attender: Wu 07/18/2018 RADHA ID="zzehnetjgOvjvZdzxyfjoaocPL64">PATIENT [facility] 10:53 :00 AM (Annia King [facility]</td><td>[facility], [place]) EDT - [facility] Mcgill</td><td>[facility] 2018 Health Center</td><td>07/18/2018</td><td></td> 11:59:0 0 PM Center) EDT Attender: Mental 07/06/2018 [facility] 02:09:00 PM ([facility] 07/06/2018 Medical 02:09:00 PM Center) EDT OutpatientOFFICE/OUTPATIENT VISIT, EST Attender: Mental 07/07/19 19 [facility] 11:55:00 AM ([facility] nder: 07/06/2018 Medical Isaiah 11:55:00 AM Center) Dar EDT Outpatient 07/01/2018 [facility] 08:11:00 AM ([facility]) Individual Psychotherapy (30 Min) Attender: Mental 06/08/2018 [facility] 05:46:00 PM ([facility] 06/08/2018 Medical 05:46:00 PM Center) EST Attender: 04/13/2018 [facility] 01:22:00 PM ([facility] 04/13/2018 Medical 01:22:00 PM Center) EST OutpatientOFFICE/OUTPATIENT VISIT, EST Attender: Podiatry 02/17/20 18 [facility] 12:41:00 PM ([facility] 02/16/2018 Medical 12:41:00 PM Center) EST Outpatient<td Attender: Wu 02/16/2018 RADHA ID="iv[id number]">PATIENT [facility] 12:13 :00 PM (Annia King [facility]</td><td>[facility] [place] EST - [facility]</td><td>[facility] 2017 Health Center</td><td>02/16/2018</td><td></td> 11:59:0 0 PM Center) EST Outpatient<td Attender: Wu 02/16/2018 Cole GARCIA ID="rvgxvhhvxRfqlQdvkpnbmhvzXN96">OFFICE [facility] 09:00: 00 AM s (Annia King VISIT</td><td>[facility] EST - s Neighborhood DP</td><td>[facility] 02/16/2018 e Health Center</td><td>02/16/2018</td><td><content 10:0 4:56 AM s Center) ID="eugtcplrxXqernergzFU05-1">Assessment EST s [use For S.o.a.p. Note Free [...] S.o.a.p. Note Free T ext] Attender: 04/14/2017 JUNI Portillo 08:03:00 AM ([facility] 04/14/2017 Medical 08:03:00 AM Center) EST Outpatient< Attender: [place] 12/08/2016 [facility] 05:06:00 PM ([facility] nichole ID="ramana BAIRES Health EDT - [facility] 12/08/2016 Health [id number]" 11:59:00 PM Center) >*Chart EDT Update*</td ><td>ADELA PASCAL MD</td><td> [facility]</td> <td> 017</td><td ></td> Outpatient< Attender: [place] 12/02/2016 [facility] 02:54:00 PM ([place] ID="ramana Mcgill [facility] EDT - [facility] 12/02/2016 Health [id number]" 11:59:00 PM Center) >PATIENT EDT ADVOCACY</t d><td>Melissa Colonrera</td ><td>Mjjerry [facility]</td> <td> 017</td><td ></td> Outpatient< Attender: Wu 11/27/2016 ArthralgiaSleep Disorder RADHA td BILLIE Community 03:30:00 PM InsomniaSinus ([place] non ID="encount [facility] EDT - BradycardiaArthralgiaSle ep [facility] 11/27/2016 Disorder InsomniaSinus H eah [id number]" 04:30:13 PM BradycardiaArthralgiaSl [facility] Center) >WALKINS</t EDT Disorder InsomniaSinus d><td>BILLIE BradycardiaArthralgiaSle [facility] Disorder InsomniaSinus [facility]</td><td BradycardiaArthralgiaSle ep >[place] Disorder InsomniaSinus [facility] BradycardiaArthralgiaSlee Health Disorder InsomniaSinus [place]</td> BradycardiaArthralgiaSle ep <td> Disorder InsomniaSinus 017</td><td BradycardiaArthralgiaSle [...] Sleep Disorder Insomnia Sinus Bradycardia OutpatientOFFICE/OUTPATIENT Attender: Family 08/31/2013 NEXTGEN VISIT, [facility] 10:49:00 AM ([facility] 08/31/2013 Medical 10:49:00 AM Center) EDT Attender: Family 08/30/2013 [facility] 04:38:00 PM ([facility] 08/30/2013 Medical 04:38:00 PM Center) EDT Family 08/24/2013 [facility] 01:59:00 PM ([facility] EDT - [facility] 08/24/2013 Medical 01:59:00 PM [place]) EDT Outpatient<td Attender: Wu 08/23/2013 Assessment IRVING ID="encounterTypeDescriptionI [facility] 02:47:00 PM [use For ([place] D71">Follow Up</td><td>[facility] EDT - S.o.a.p . Neighborhood [facility]</td><td>[facility] 08/23/2013 Note Free [facility] 03:33:06 PM Text]Assess [facility]</td><td>08/23/2013</td EDT ment [ use ><td><content For ID="[id number]" S.o.a. p. >Assessment [use For S.o.a.p. Note [...] ext] OutpatientOFFICE/OUTPATIENT Attender: Family 08/23/2013 NEXTGEN VISIT, [facility] 08[facility]45[facility]00 AM [facility] 08/23/2013 Medical 08:45:00 AM [place]) EDT Outpatient<td Attender: Wu 08/15/2013 RADHA ID="encounterTypeDescription [facility] 04:01:00 PM (Annia King ID72">OFFICE CLARENCE BAIRES [facility] EDT [facility] VISIT</td><td>[facility] 08/15/2013 H ish LIMA MD</td><td>Wu 06:17:30 PM [place]) [facility] EDT Center</td><td>08/15/2013</t d><td></td> Outpatient<td Attender: 08/07/2013 RADHA ID="encounterTypeDescription ADELA PASCAL 05:05:00 PM (Annia King ID73">[Patient EDT - [facility] Encounter]</td><td>ADELA 08/07/2013 H ish PASCAL MD</td><td> 11:59:00 PM Benjamin mix EDT </td><td>08/07/2013</td><td> </td> OutpatientOFFICE/OUTPATIENT Attender: Family 08/07/2013 NEXTGEN VISIT, [facility] 10:19:00 AM ([facility] 08/07/2013 Medical 10:19:00 AM [place]) EDT Outpatient<td Attender: Wu 08/02/2013 RADHA ID="encounterTypeDescription [facility] 09:57:00 AM (Annia King ID74">THERAPY</td><td>KEON [facility] EDT - Neighborhood [facility] Center 08/02/2013 Health [facility]</td><td>[place] 11:59:00 PM [facility] EDT Center</td><td>08/02/2013</t d><td></td> Outpatient<td Attender: Single 07/27/2013 RADHA ID="encounterTypeDescription ZAKIA Homeless 08:45:00 AM (Annia King ID75">Follow ANTONIO BAIRES Accessment EDT - Neighborhood Up</td><td>[facility] Center 07/27/2013 Health ANTONIO BAIRES</td><td>Single 11:59:00 PM [place]) Homeless Accessment EDT Center</td><td>07/27/2013</t d><td></td> Outpatient<td Attender: Single 07/25/2013 RADHA ID="encounterTypeDescription DELIANURYSMIGUELITO Homeless 10:45:00 AM (Annia King ID76">INITIAL ANTONIO BAIRES Accessment EDT [facility] d VISIT</td><td>[facility] 07/25/2013 Health IP ANTONIO BAIRES</td><td>Single 11:59:00 PM [place]) Homeless Accessment EDT Center</td><td>07/25/2013</t d><td></td> Attender: Family 07/24/2013 [facility] 02:01:00 PM ([facility] EDT [facility] 07/24/2013 Medical 02:01:00 PM [place]) EDT Outpatient<td Attender: Wu 07/24/2013 RADHA ID="encounterTypeDescription ADELA PASCAL [facility] 09:24:00 AM (Annia King ID77">WALKINS</td><td>ADELA BAIRES [facility] EDT - [facility] NAIDA BAIRES</td><td>[facility] 07/24/2013 [facility] 10:22:41 AM [facility]</td><td>07/24/2013</t EDT d><td></td> OutpatientOFFICE/OUTPATIENT Attender: Family 06/22/2013 NEXTGEN VISIT, [facility] 12:59:00 PM ([facility] EDT - [place] 06/22/2013 Medical 12:59:00 PM [place]) EDT Outpatient<td Attender: Wu 06/21/2013 Assessmen RADHA ID="encounterTypeDescription [facility] 10:22:00 AM t [us e (Annia King ID78">OFFICE DPM Health EDT - For Neighborhood VISIT</td><td>[facility] 06/21/2013 S.o.a.p. Health DPM</td><td>Wu 11:01:46 AM Note Free Cent er) [facility] EDT Text][facility]</td><td>06/21/2013</t ssment d><td><content [use For ID="uzfobudwsPlrfmlojdWN55-1 S.o.a.p . ">Assessment [use For Note Free [...] Free T ext] Outpatient<td Attender: Wu 06/08/2013 IRVING ID="ipfcoxzzyFpvoHrgixuchhchDS19">WALKINS</td><td>[facility] 02:02:00 PM ([facility]</td><td>[facility]</td><td>06/08/2013</td><td></td> Center 014 Health 03:07:34 PM Center) EST Outpatient<td ID="sn[id number]">*No Attender: Wu 06/07/2013 IRVING Show*</td><td>ADRIANO LB DPM</td><td>[facility] RA FAT [facility] 11:51:00 AM ([facility]</td><td>06/07/2013</td><td></td> DPM [facility] 06/07/2013 Health 11:59:00 PM Center) EST Outpatient<td Attender: Wu 06/05/2013 IRVING ID="kd[id number]">WALKINS</td><td>[facility] 09:19:00 AM ([place] AN</td><td>[facility] EST - [facility] Center</td><td>06/05/2013</td><td></td> Center [facility] 12:11:25 PM Center) EST Outpatient<td Attender: ADELA [place] 02/02/2013 GREENWA Y ID="xuanoxzclOrrmCffnrblrkquEJ80">WALKINS</td><td>ADELA CORBINAI [facility] 09:46:00 AM ([place] PASCAL MD</td><td>[facility] EDT [facility]</td><td>02/02/2013</td><td></td> Center [facility] Health 11:47:53 AM Center) EDT Outpatient<td ID="zxkexmfurQgtoCdytluhqzakDC40">Follow Attender: Wu 02/01/2013 RADHA Up</td><td>[facility]</td><td>[facility] 11:25:00 AM ([facility]</td><td>02/01/2013</td><td></td> [facility] EDT [facility] 02/01/2013 Health 11:59:00 PM Center) EDT Outpatient<td ID="jqvmaxttsDvxsQczghikbshfIW87">WILY cuadra 11/25/2012 RADHA EKG</td><td> </td><td>[facility] 12:22:00 PM ([facility]</td><td>11/25/2012</td><td></td> Health EDT - [facility] 11/25/2012 Health 11:59:00 PM Center) EDT Outpatient<td ID="wlqqirvclRqzfEpmtqxbjezjIY64">OFFICE Attender: Wu 11/25/2012 RADHA VISIT</td><td>JOSE C MOJICA CT</td><td>[facility] 11:30:00 AM ([facility]</td><td>11/25/2012</td><td></td> [facility] EDT - Neighborhood Center 11/25/2012 Health 11:59:00 PM Center) EDT Outpatient<td ID="znflerrgbNnczHksuaeptyhqCC28">OFFICE Attender: Wu 10/26/2012 RADHA VISIT</td><td>ADRIANO LB DPM</td><td>[facility] 10:50:00 AM ([facility]</td><td>10/26/2012</td><td></td> DPM [facility] EDT - Neighborhood Center 10/26/2012 Health 11:59:00 PM Center) EDT Outpatient<td Attender: ADELA [place] 09/01/2012 ASHLIWA Y ID="gmywvfkfkWwycNjbcddsgdqgGX41">WALKINS</td><td>ADELA PASCAL [facility] 09:45:00 AM ([place] PASCAL MD</td><td>[facility] EDT - [facility]</td><td>09/01/2012</td><td></td> Center [facility] Health 11:55:36 AM Center) EDT Outpatient<td ID="ribpbhzwyGejiFsxzmlcpmzlET75">OFFICE Attender: Wu 08/03/2012 RADHA VISIT</td><td>ADRIANO LB DPM</td><td>[facility] 10:13:00 AM ([facility]</td><td>08/03/2012</td><td></td> DPM [facility] EDT - Neighborhood Center 08/03/2012 Health 11:59:00 PM Center) EDT Outpatient<td ID="toiqnkaydRibmSayriuosibjGZ24">OFFICE Attender: Wu 05/11/2012 RADHA VISIT</td><td>ADRIANO LB DPM</td><td>[facility] 10:05:00 AM ([facility]</td><td>05/11/2012</td><td></td> [facility] - Neighborhood Center 05/11/2012 Health 11:59:00 PM Center) EST Outpatient<td ID="dwkptyztfCsilJelbvjrnbwmIE22">Follow Attender: Wu 02/10/2012 RADHA Up</td><[facility]td><td>[facility] 10:17:00 AM ([place] [facility]</td><td>02/10/2012</td><td></td> [facility] EDT - Neighborhood [place] 02/10/2012 Health 11:59:00 PM Center) EDT Outpatient<td Attender: ADELA [place] 12/22/2011 HECTOR Y ID="ukurjvtteVmkmZycvvwywsutGS42">WALKINS</td><td>ADELA PASCAL MD [facility] 09:57:00 AM (Annia PASCAL MD</td><td>[facility] EDT [facility]</td><td>12/22/2011</td><td></td> Center [address] [place] [address] 12:26:40 PM Center) EDT Outpatient<td Attender: ADELA [place] 11/25/2011 HECTOR Y ID="szwuemfdhRlpzQrrpwyxprzzTI92">WALKINS</td><td>ADELA PASCAL MD [facility] 09:31:00 AM (Annia PASCAL MD</td><td>[facility] EDT - [facility]</td><td>11/25/2011</td><td></td> Center [address] [place] [address] 02:51:36 PM Center) EDT Outpatient<td ID="auisruaqyKrglQjbzihotejbOY27">*Chart Attender: 11/18/2011 RADHA Update*</td><td>KORY TOVAR MD</td><td> KORY 09: 34:00 AM (Annia King </td><td>11/18/2011</td><td></td> GUY BAIRES EDT - Neighborhood 11/18/2011 Health 11:59:00 PM Center) EDT Outpatient<td Attender: Wu 11/09/2011 James IRVING ID="vthrxtsbiLcenJdahalajsujGF32">WALKINS</td><td>[facility] 04:06:00 PM o ([place] TOVAR MD</td><td>[facility] GUY BAIRES Health E DT - w [facility]</td><td>11/09/2011</td><td><content Center 10/12 B Health ID="uzujhhauhGewcojwuqFV49-5">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</content>, <content EDT c ID="wmfpwoqrqJgukithtdYN50-8">Benign Prostatic k Hypertrophy</content>, <content P ID="spbztqardOwaohuxwgGD78-0">Coronary Artery a Disease</content>, <content i ID="kyzvkxaseXjattzdiqST84-2">Coronary Artery n Disease</content>, <content D ID="afxfbptzdWqfnetfyiDJ64-5">Depression</content>, e <content ID="riveubvcoMfnkqjkynPP62-4">Diabetes p Mellitus</content>, <content r ID="mdbymgbgqOaxfpyzzfEH74-4">Epilepsy</content>, <content e ID="cuuoflxvjYrxqnzhwyLU23-4">Essential s Hypertension</content>, <content s ID="snmwmpuvcSnffdbyooQA98-5">Low Back Pain</content></td> i o n L o [...] Benign Prostatic Hypertrophy Outpatient<td Attender: Wu 10/21/2011 IRVING ID="zogibjhchMzpxOjiazbfgghsSC18">Follow [facility] 10:00: 00 AM ([facility]</td><td>[facility] Ne ighborhood DPM</td><td>[facility] 10/21/2011 Health Center</td><td>10/21/2011</td><td></td> 11:59:0 0 PM Center) EDT Outpatient<td Attender: [facility] 12/19/2010 RADHA ID="okboeyxymHnsxJwpvpugwydhPH70">Follow MARINO King 03:30: 00 PM ([facility]</td><td>[facility]</td><td>[facility] EDT - [facility] GISSEL [facility] 12/19/2010 Health Center</td><td>12/19/2010</td><td></td> Center 11:59:0 0 PM Center) EDT Outpatient<td Attender: Wu 12/19/2010 RADHA ID="jbysztwewYshjRtqevmxjxkqTJ02">Follow [facility] 10:30: 00 AM ([facility]</td><td>[facility] EDT - [facility]</td><td>[facility] 12/19/2010 Health Center</td><td>12/19/2010</td><td></td> 11:59:0 0 PM Center) EDT Medications Medication Brand Start Product Dose Route Administrative Pharm[facility] Indications Reaction Description Data Name Date Form Instructions Instructions Source(s) Alprazolam Xanax 01/02/ active alprazola m 2 NEXTGEN 2 MG Oral 2 mg 2020 MG Oral ([facility] Tablet tablet 12:00: Tablet [place] [Xanax] 00 AM [Xanax] Medical Xanax 2 mg EDT [place]) tablet I stop #[id number] quetiapine Seroquel 01/03/2020 1 {tablet} ORAL active quetiapine NEXTGEN 200 MG Oral 200 mg 12:00:00 AM 200 MG Oral ([facility] Tablet tablet EDT Tablet [place] [Seroquel] [Seroquel] Med ical Seroquel 200 [place]) mg tablet quetiapine Seroquel 12/06/2019 1 {tablet} ORAL completed quetiapine NEXTGEN 200 MG Oral 200 mg 12:00:00 AM 200 MG Oral ([facility] Tablet tablet EDT Tablet [place] [Seroquel] [Seroquel] Med ical Seroquel 200 [place]) mg tablet Alprazolam 2 Xanax 2 mg 12/06/2019 completed alprazolam NEXTGEN MG Oral tablet 12:00:00 AM 2 MG Ora l ([facility] Tablet EDT Tablet [place] [Xanax] [Xanax] Medical Xanax 2 mg [place]) tablet I stop #[id number] Keppra 500MG Keppra 500MG 11/29/2019 UNIT 1 active Keppra RADHA Oral Tablet [facility] Amlod[facility]ine 5 amLODIPine 11/29/2019 UNIT 1 active amLODIPine RADHA MG Oral Besylate 5MG 12:00:00 AM Be sylate ([place] Tablet Oral Tablet EDT [facility] amLODIPine Health Besylate 5MG [place]) Oral Tablet Aspirin 81 MG Adult Aspirin 11/29/2019 UNIT 1 active Miniprin RADHA Delayed Regimen 81MG 12:00:00 AM ([place] Release Oral Oral Tablet EDT [facility] Tablet Adult Delayed Heal th Aspirin Release [place]) Regimen 81MG Oral Tablet Delayed Release Simvastatin Simvastatin 11/29/2019 UNIT 1 active Simvastatin RADHA 20 MG Oral 20MG Oral 12:00:00 AM ([place] Tablet Tablet EDT [facility] d Simvastatin Health 20MG Oral [place]) Tablet gabapentin Gabapentin 11/29/2019 UNIT 1 active Gabapentin RADHA 300 MG Oral 300MG Oral 12:00:00 AM ([place] Capsule Capsule EDT [facility] ood Gabapentin Health 300MG Oral [place]) Capsule Alprazolam 2 Xanax 2 mg 11/08/2019 completed alprazolam 2 NEXTGEN MG Oral tablet 12:00:00 AM MG Oral ([facility] Tablet EDT Tablet Twyla [Xanax] Xanax [Xanax] Med ical 2 mg tablet [place]) I stop #[id number] quetiapine Seroquel 11/08/2019 1 ORAL completed quetiapine NEXTGEN 200 MG Oral 200 mg 12:00:00 AM {tablet} 200 MG Oral ([facility] Tablet tablet EDT Tablet [place]yla [Seroquel] [Seroquel] Med ical Seroquel 200 [place]) mg tablet Ozempic (0.25 Ozempic 10/24/2019 UN active Ozempic RADHA or 0.5 (0.25 or 12:00:00 AM IT ( ount MG/DOSE) 0.5 EDT Fernando Subcutaneous MG/DOSE) [facility] Solution Subcutaneou ood Pen-injector s Solution [facility] Pen-injecto [place]) r Glumetza Glumetza 10/24/2019 UN active Glum etza RADHA 500MG Oral 500MG Oral 12:00:00 AM IT ([facility] Tablet Tablet EDT Fernando Extended Extended Neighbo rh Release 24 Release 24 ood Hour [facility]) Lancets Lancets 10/23/2019 UN 1 active Lancet s RADHA Miscellaneous Miscellaneo 12:00:00 AM IT ([facility] us EDT Fernando [facility]) Blood Glucose Blood 10/23/2019 UN 1 active Bl ood RADHA Test In Vitro Glucose 12:00:00 AM IT G lucose ([facility] Strip Test In EDT Test Fernando Vitro Strip [facility]) quetiapine Seroquel 10/10/2019 1 {tbl} ORAL completed quetiapine NEXTGEN 200 MG Oral 200 mg 12:00:00 AM 200 MG Oral ([facility] Tablet tablet EDT Tablet Twyla [Seroquel] [Seroquel] Med ical Seroquel 200 [place]) mg tablet Alprazolam 2 Xanax 2 mg 10/10/2019 completed Alprazolam NEXTGEN MG Oral tablet 12:00:00 AM 2 MG Ora l ([facility] Tablet EDT Tablet Twyla [Xanax] Xanax [Xanax] Med ical 2 mg tablet [place]) I stop #[id number] quetiapine Seroquel 09/15/2019 1 {tbl} ORAL completed quetiapine NEXTGEN 200 MG Oral 200 mg 12:00:00 AM 200 MG Oral ([facility] Tablet tablet EDT Tablet Twyla [Seroquel] [Seroquel] Med ical Seroquel 200 [place]) mg tablet Alprazolam 2 Xanax 2 mg 09/15/2019 completed Alprazolam NEXTGEN MG Oral tablet 12:00:00 AM 2 MG Ora l ([facility] Tablet EDT Tablet Twyla [Xanax] [Xanax] Medical Xanax 2 mg [place]) tablet I stop #[id number] Lidocaine 5% Lidocaine 5% 09/08/2019 UNIT 1 completed Lidocaine RADHA External External 12:00:00 AM ([place] Patch Patch [facility]) Naproxen 375 Naproxen 09/08/2019 UNIT 1 completed Naproxen RADHA MG Oral 375MG Oral 12:00:00 AM ([place] Tablet Tablet [facility] Naproxen Health 375MG Oral [place]) Tablet Havana 3 [place] 3 09/08/2019 UNIT 1 suspended Ome ga 3 RADHA 1000MG Oral 1000MG Oral 12:00:00 AM ([place] Capsule Capsule [facility]) Havana 3 [place] 3 09/08/2019 UNIT 1 active [place] 3 RADHA 1000MG Oral 1000MG Oral 12:00:00 AM ([place] Capsule Capsule [facility]) Aspirin 81 MG Adult 09/08/2019 UNIT 1 suspended Miniprin RADHA Delayed Aspirin 12:00:00 AM (M ount Fernando Release Oral Regimen 81MG [facility] Adult Oral Tablet Health Aspirin Delayed [place]) Regimen 81MG Release Oral Tablet Delayed Release Amlodipine 5 amLODIPine 09/08/2019 UNIT 1 suspended amLODIPine RADHA MG Oral Besylate 5MG 12:00:00 AM Be sylate ([place] Tablet Oral Tablet [facility] amLODIPine Health Besylate 5MG [place]) Oral Tablet [place] 3 [place] 3 09/08/2019 UNIT 1 suspended Ome ga 3 RADHA 1000MG Oral 1000MG Oral 12:00:00 AM ([place] Capsule Capsule [facility]) Naproxen 375 Naproxen 09/08/2019 UNIT 1 suspended Naproxen RADHA MG Oral 375MG Oral 12:00:00 AM ([place] Tablet Tablet [facility] Naproxen Health 375MG Oral [place]) Tablet Lidocaine 5% Lidocaine 5% 09/08/2019 UNIT 1 suspended Lidocaine RADHA External External 12:00:00 AM ([place] Patch Patch [facility]) Simvastatin Simvastatin 09/08/2019 UNIT 1 suspended Simvastatin RADHA 20 MG Oral 20MG Oral 12:00:00 AM ([place] Tablet Tablet [facility] Simvastatin Health 20MG Oral [place]) Tablet Insulin Insulin 09/08/2019 UNIT 1 active Insuli n RADHA Syringe-Needl Syringe-Need 12:00:00 AM Syringe-Need ([place] e U-100 31G X le U-100 31G EDT le U-100 [facility] 4"0.3 ML X 1/4"0.3 ML H [facility] Misc[facility] s Metformin metFORMIN 09/08/2019 UNIT 1 active me tFORMIN RADHA hydrochloride HCl 850MG 12:00:00 AM HCl ([place] 850 MG Oral Oral Tablet T [facility] Health metFORMIN HCl [place] ) 850MG Oral Tablet Alcohol Pads Alcohol Pads 09/08/2019 UNIT active Alcohol Pads RADHA 70% 70% 12:00:00 AM ([facility] V ernon [facility]) Keppra 500MG Keppra 500MG 09/08/2019 UNIT 1 suspended Keppra RADHA Oral Tablet Oral Tablet 12:00:00 AM ([facility]) Ozempic (0.25 Ozempic 09/08/2019 UNIT suspended Ozempic RAHDA or 0.5 (0.25 or 0.5 12:00:00 AM ([place] MG/DOSE) MG/DOSE) EDT [facility] Subcutaneous Subcutaneous Health Solution Solution [place]) Pen-injector Pen-injector Amlodipine 5 amLODIPine 09/08/2019 UNIT 1 suspended amLODIPine RADHA MG Oral Besylate 5MG 12:00:00 AM Be sylate ([place] Tablet Oral Tablet [facility] amLODIPine Health Besylate 5MG [place]) Oral Tablet Aspirin 81 MG Adult 09/08/2019 UNIT 1 suspended Miniprin RADHA Delayed Aspirin 12:00:00 AM (M ount Fernando Release Oral Regimen 81MG [facility] Tablet Adult Oral Tablet Health Aspirin Delayed [place]) Regimen 81MG Release Oral Tablet Delayed Release NovoLIN R NovoLIN R 08/30/2019 CAPFUL completed Novolin R RADHA 100UNIT/ML IJ 100UNIT/ML 12:00:00 AM DOSING ([place] SOLN IJ SOLN EDT [facility]) Medication administered onsite [facility]: [id number] gabapentin Gabapentin 08/21/2019 UNIT 1 active Gabapentin RADHA 300 MG Oral 300MG Oral 12:00:00 AM ([place] Capsule Capsule EDT [facility] Gabapentin Health 300MG Oral [place]) Capsule quetiapine Seroquel 200 08/16/2019 1 ORAL completed quetiapine NEXTGEN 200 MG Oral mg tablet 12:00:00 AM {t 2 00 MG Oral ([facility] Tablet EDT bl Tablet Twyla [Seroquel] } [Seroquel] Med ical Seroquel 200 [place]) mg tablet Alprazolam 2 Xanax 2 mg 08/16/2019 completed Alprazolam NEXTGEN MG Oral tablet 12:00:00 AM 2 MG Ora l ([facility] Tablet EDT Tablet Twyla [Xanax] [Xanax] Medical Xanax 2 mg [place]) tablet I stop #[id number] gabapentin Gabapentin 07/27/2019 UNIT 1 suspended Gabapentin RADHA 300 MG Oral 300MG Oral 12:00:00 AM (An[place] Capsule Capsule EDT [facility] ood Gabapentin Health 300MG Oral [place]) Capsule quetiapine Seroquel 200 07/18/2019 1 ORAL completed quetiapine NEXTGEN 200 MG Oral mg tablet 12:00:00 AM {t 2 00 MG Oral ([facility] Tablet EDT bl Tablet Twyla [Seroquel] } [Seroquel] Med ical Seroquel 200 [place]) mg tablet Alprazolam 2 Xanax 2 mg 07/18/2019 completed Alprazolam NEXTGEN MG Oral tablet 12:00:00 AM 2 MG Ora l ([facility] Tablet EDT Tablet Twyla [Xanax] [Xanax] Medical Xanax 2 mg [place]) tablet I stop #[id number] Blood Glucose Blood Glucose 06/29/2019 UNIT 1 suspended Blood Glucose [place] Test In Vitro Test In Vitro 12:00:00 AM Test ([place] Strip Strip [facility]) Glumetza Glumetza 06/29/2019 UNIT 1 suspended G lumetza RADHA 500MG Oral 500MG Oral 12:00:00 AM ([place] Tablet Tablet EDT [place] Extended Extended Health Release [address]) Hour Hour Insulin Insulin 06/29/2019 UNIT 1 suspended Ins ulin RADHA Syringe-Needl Syringe-Needl 12:00:00 AM Syringe-Needl ([place] e U-100 31G X e U-100 31G X EDT e U-100 Neighborhood 4"0.3 ML 04/15"0.3 ML [facility] Miscellaneous Miscellaneous [place]) Amlodipine 5 amLODIPine 06/29/2019 UNIT 1 suspended amLODIPine RADHA MG Oral Besylate 5MG 12:00:00 AM Be sylate ([place] Tablet Oral Tablet EDT [facility] amLODIPine Health Besylate 5MG [place]) Oral Tablet Acetaminophen Acetaminophen 06/29/2019 UNIT completed Acetaminophen RADHA 325 MG Oral 325MG OR TABS 12:00:00 AM ([place] Tablet [facility] Acetaminophen Health 325MG OR TABS [place] ) Medication administered onsite [facility]: [id number] Keppra 500MG Keppra 500MG 06/29/2019 UNIT 1 suspended Keppra RADHA Oral Tablet Oral Tablet 12:00:00 AM ([facility]) Lancets Lancets 06/29/2019 UNIT 1 suspended Marc cets RADHA Miscellaneou Miscellaneou 12:00:00 AM ([place] s [facility]) Ozempic Ozempic 06/29/2019 UNIT suspended Oze mpic RADHA (0.25 or 0.5 (0.25 or 0.5 12:00:00 AM ([place] MG/DOSE) MG/DOSE) EDT [place] Subcutaneous Subcutaneous Health Solution Solution [place]) Pen-injector Pen-injector Simvastatin Simvastatin 06/29/2019 UNIT 1 suspended Simvastatin RADHA 20 MG Oral 20MG Oral 12:00:00 AM ([place] Tablet Tablet EDT [facility] d Simvastatin Health 20MG Oral [place]) Tablet Aspirin 81 Adult 06/29/2019 UNIT 1 suspended Mi niprin RADHA MG Delayed Aspirin 12:00:00 AM ([place] Release Oral Regimen 81MG [facility] Tablet Adult Oral Tablet Health Aspirin Delayed [place]) Regimen 81MG Release Oral Tablet Delayed Release Tylenol 8 Tylenol 8 06/26/2019 UNIT 1 completed Mapap RADHA Hour Hour 12:00:00 AM ([facility] Kiera locke Arthritis Arthritis EDT [place] Pain 650MG Pain 650MG a [facility] Oral Tablet Oral Tablet C enter) Extended Extended Release Release quetiapine Seroquel 200 06/20/2019 1 ORAL completed quetiapine NEXTGEN 200 MG Oral mg tablet 12:00:00 AM {t 2 00 MG Oral ([facility] Tablet EDT bl Tablet Twyla [Seroquel] } [Seroquel] Med ical Seroquel 200 [place]) mg tablet Alprazolam 2 Xanax 2 mg 06/20/2019 1 ORAL completed Alprazolam NEXTGEN MG Oral tablet 12:00:00 AM {t 2 MG Ora l ([facility] Tablet EDT bl Tablet Twyla [Xanax] } [Xanax] Medical Xanax 2 mg [place]) tablet I stop #[id number] Insulin Insulin 06/05/2019 UNIT 1 suspended Ins ulin RADHA Syringe-Needle Syringe-Needle 12:00:00 AM Syringe-Needle ([place] U-100 31G X U-100 31G X EST U-100 [facility] /"0.3 ML 04/15"0.3 ML [facility] Miscellaneous Miscellaneous [place]) Lancets Lancets 06/05/2019 UNIT 1 suspended Marc cets [place] [facility] AM ([facility]) Blood Glucose Blood Glucose 06/05/2019 UNIT 1 suspended Blood Glucose RADHA Test In Vitro Test In Vitro 12:00:00 AM Test ([place] Strip Strip [facility]) Glumetza 1000MG Glumetza 1000MG 06/05/2019 UNIT 1 suspend ed Glumetza RADHA Oral Tablet Oral Tablet 12:00:00 AM ([place] Extended Extended EST [place] Release 24 Hour Release 24 Hour [facility]) Aspirin 81 MG Adult Aspirin 06/05/2019 UNIT 1 suspended Miniprin RADHA Delayed Release Regimen 81MG 12:00:00 AM ([place] Oral Tablet Oral Tablet EST [facility] Adult Aspirin Delayed Release Health Regimen 81MG [place]) Oral Tablet Delayed Release NovoLIN R NovoLIN R 06/05/2019 CAPFU completed Novolin R RADHA 100UNIT/ML IJ 100UNIT/ML IJ 12:00:00 AM L ([place] SOLN SOLN EST DOSIN [facility]) Medication administered onsite [facility]: [id number] Simvastatin Simvastatin 06/05/2019 UNIT 1 suspended Simvastatin RADHA 20 MG Oral 20MG Oral 12:00:00 AM ([place] Tablet Tablet EST [place] Simvastatin Health 20MG Oral [place]) Tablet Amlodipine 5 amLODIPine 06/05/2019 UNIT 1 suspended amLODIPine RADHA MG Oral Besylate 5MG 12:00:00 AM Be sylate ([place] Tablet Oral Tablet EST [facility]ighb [facility]hood amLODIPine Health Besylate 5MG [place]) Oral Tablet Keppra 500MG Keppra 500MG 06/05/2019 UNIT 1 suspended Keppra RADHA Oral Tablet Oral Tablet 12:00:00 AM ([place] [facility]) Ozempic (0.25 Ozempic (0.25 06/05/2019 UNIT suspended Ozempic RADHA or 0.5 or 0.5 12:00:00 AM (Maria D nt Fernando MG/DOSE) MG/DOSE) EST [place] Subcutaneous Subcutaneous Health Solution Solution [place]) Pen-injector Pen-injector Glumetza Glumetza 06/05/2019 UNIT 1 suspended G lumetza RADHA 500MG Oral 500MG Oral 12:00:00 AM ([place] Tablet Tablet EST [place] Extended Extended Health Release [address]) Hour Hour Alprazolam 2 Xanax 2 mg 05/23/2019 1 OR completed Alprazolam 2 NEXTGEN MG Oral tablet 12:00:00 AM {t AL MG Oral ([facility] Tablet EST bl Tablet Twyla [Xanax] Xanax } [Xanax] Med ical 2 mg tablet [place]) I stop #[id number] quetiapine Seroquel 05/23/2019 1 ORAL completed quetiapine NEXTGEN 200 MG Oral 200 mg 12:00:00 AM {tbl} 200 MG Oral ([facility] Tablet tablet EST Tablet Twyla [Seroquel] [Seroquel] Med ical Seroquel [place]) 200 mg tablet Glumetza Glumetza 05/02/2019 UNIT 1 suspended G lumetza RADHA 1000MG Oral 1000MG 12:00:00 AM ([place] Tablet Oral EST [facility] Extended Tablet Health Release 24 Extended Cente r) Hour Release 24 Hour quetiapine Seroquel 04/25/2019 1 ORAL completed quetiapine NEXTGEN 200 MG Oral 200 mg 12:00:00 AM {tbl} 200 MG Oral ([facility] Tablet tablet EST Tablet Twyla [Seroquel] [Seroquel] Med ical Seroquel [place]) 200 mg tablet quetiapine Seroquel 04/25/2019 1 ORAL completed quetiapine NEXTGEN 200 MG Oral 200 mg 12:00:00 AM {tbl} 200 MG Oral ([facility] Tablet tablet EST Tablet Twyla [Seroquel] [Seroquel] Med ical Seroquel [place]) 200 mg tablet Medication administered onsite Alprazolam 2 Xanax 2 04/25/2019 1 {tbl} ORAL completed Alprazolam 2 NEXTGEN MG Oral mg 12:00:00 AM MG Oral (S aint Tablet tablet EST Tablet Twyla [Xanax] [Xanax] Medical Xanax 2 mg Center) tablet I stop #[id number] Alprazolam 2 Xanax 2 03/28/2019 1 {tbl} ORAL completed Alprazolam 2 NEXTGEN MG Oral mg 12:00:00 AM MG Oral (S aint Tablet tablet EST Tablet Twyla [Xanax] [Xanax] Medical Xanax 2 mg Center) tablet I stop #[id number] quetiapine Seroquel 03/28/2019 1 ORAL completed quetiapine NEXTGEN 200 MG Oral 200 mg 12:00:00 AM {tbl} 200 MG Oral ([facility] Tablet tablet EST Tablet Twyla [Seroquel] [Seroquel] Med ical Seroquel 200 [place]) mg tablet Ozempic (0.25 Ozempic 03/20/2019 UNI suspended Ozempic RADHA or 0.5 (0.25 or 12:00:00 AM T (M ount MG/DOSE) 0.5 EST Fernando Subcutaneous MG/DOSE) Nei [facility] Solution Subcutaneou od H ealth Pen-injector s [...] Neighbor ho 20MG Oral od Health Tablet Center) Amlodipine 5 amLODIPine 03/20/2019 UNI 1 suspended amLODIPine RADHA MG Oral Besylate 12:00:00 AM T Besyla te ([place] Tablet 5MG Oral EST Fernando amLODIPine Tablet [place] Besylate 5MG od Heal th Oral Tablet [place]) quetiapine Seroquel 02/28/2019 1 ORAL completed quetiapine NEXTGEN 200 MG Oral 200 mg 12:00:00 AM {tbl} 200 MG Oral ([facility] Tablet tablet EST Tablet Twyla [Seroquel] [Seroquel] Med ical Seroquel 200 [place]) mg tablet Alprazolam 2 Xanax 2 mg 02/28/2019 1 ORAL completed Alprazolam 2 NEXTGEN MG Oral tablet 12:00:00 AM {tbl} MG Oral ([facility] Tablet EST Tablet Twyla [Xanax] Xanax [Xanax] Med ical 2 mg tablet [place]) I stop #[id number] quetiapine Seroquel 02/17/2019 1 {tbl} ORAL completed quetiapine NEXTGEN 200 MG Oral 200 mg 12:00:00 AM 200 MG Oral ([facility] Tablet tablet EST Tablet Twyla [Seroquel] [Seroquel] Med ical Seroquel 200 [place]) mg tablet Alprazolam 2 Xanax 2 mg 02/17/2019 1 {tbl} ORAL completed Alprazolam NEXTGEN MG Oral tablet 12:00:00 AM 2 MG Ora l ([facility] Tablet EST Tablet Twyla [Xanax] [Xanax] Medical Xanax 2 mg [place]) tablet I stop #[id number] Amlodipine 5 amLODIPine 02/01/2019 UNIT 1 suspended amLODIPine RADHA MG Oral Besylate 5MG 12:00:00 AM Be sylate ([place] Tablet Oral Tablet EDT [facility]ighb [facility]hood amLODIPine Health Besylate 5MG [place]) Oral Tablet Diclofenac Diclofenac 02/01/2019 APPLIC 1 suspended Diclofenac RADHA Sodium 0.01 Sodium 1% 12:00:00 AM ATION Sodium ([place] MG/MG Topical Transdermal EDT UNIT Neighborhood Gel Gel Health Diclofenac [place]) Sodium 1% Transdermal Gel Tylenol Extra Tylenol 02/01/2019 UNIT suspended Tactinal RADHA Strength Extra 12:00:00 AM (Mo unt [place] 500MG Oral Strength EDT [place] Tablet 500MG Oral Health Tablet [place]) Aspirin 81 MG Adult 02/01/2019 UNIT 1 suspended Miniprin RADHA Delayed Aspirin 12:00:00 AM (Silvia horta Fernando Release Oral Regimen 81MG EDT [facility] Tablet Adult Oral Tablet Health Aspirin Delayed [place]) Regimen 81MG Release Oral Tablet Delayed Release Keppra 500MG Keppra 500MG 02/01/2019 UNIT 1 suspended Keppra RADHA Oral Tablet Oral Tablet 12:00:00 AM ([place] [facility]) Ozempic (0.25 Ozempic 02/01/2019 UNIT suspended Ozempic RADHA or 0.5 (0.25 or 0.5 12:00:00 AM ([place] MG/DOSE) MG/DOSE) EDT [place] Subcutaneous Subcutaneous Health Solution Solution [place]) Pen-injector Pen-injector Simvastatin Simvastatin 02/01/2019 UNIT 1 suspended Simvastatin RADHA 20 MG Oral 20MG Oral 12:00:00 AM ([place] Tablet Tablet T [facility] d Simvastatin Health 20MG Oral Center) Tablet Metformin metFORMIN 02/01/2019 UNIT 1 suspended metFORMIN RADHA hydrochloride HCl 1000MG 12:00:00 AM HCl ([place] 1000 MG Oral Oral Tablet [facility] Tablet Health metFORMIN HCl [place] ) 1000MG Oral Tablet quetiapine Seroquel 200 01/16/2019 1 OR completed quetiapine NEXTGEN 200 MG Oral mg tablet 12:00:00 AM {t AL 2 00 MG Oral ([facility] Tablet EDT bl Tablet Twyla [Seroquel] } [Seroquel] Med ical Seroquel 200 [place]) mg tablet Alprazolam 2 Xanax 2 mg 01/16/2019 1 OR completed Alprazolam 2 NEXTGEN MG Oral tablet 12:00:00 AM {t AL MG Oral ([facility] Tablet EDT bl Tablet Twyla [Xanax] Xanax } [Xanax] Med ical 2 mg tablet Center) I stop #[id number] Alprazolam 2 Xanax 2 01/09/2019 1 {tbl} ORAL completed Alprazolam 2 NEXTGEN MG Oral mg 12:00:00 AM MG Oral (S aint Tablet tablet EDT Tablet Twyla [Xanax] [Xanax] Medical Xanax 2 mg [place]) tablet I stop #[id number] quetiapine Seroquel 12/21/2018 1 {tbl} ORAL completed quetiapine NEXTGEN 200 MG Oral 200 mg 12:00:00 AM 200 MG Oral ([facility] Tablet tablet EDT Tablet Twyla [Seroquel] [Seroquel] Med ical Seroquel 200 [place]) mg tablet Alprazolam 2 Xanax 2 mg 12/21/2018 1 {tbl} ORAL completed Alprazolam NEXTGEN MG Oral tablet 12:00:00 AM 2 MG Ora l ([facility] Tablet EDT Tablet Twyla [Xanax] [Xanax] Medical Xanax 2 mg [place]) tablet I stop #[id number] Menthol 0.05 [facility] 12/15/2018 UNIT 1 suspended Absorbine RADHA MG/MG Ultra 12:00:00 AM ([place] Transdermal Strength 5% EDT N eighborhood Patch [facility] External [facility] Ultra Patch [place]) Strength 5% External Patch Voltaren 1% Voltaren 1% 12/15/2018 APPLICA 1 completed Voltaren RADHA Transdermal Transdermal 12:00:00 AM TION ([place] Gel Gel EDT UNIT [facility]) Simvastatin Simvastatin 12/15/2018 UNIT 1 suspended Simvastatin RADHA 20 MG Oral 20MG Oral 12:00:00 AM ([place] Tablet Tablet EDT [place] Simvastatin Health 20MG Oral [place]) Tablet Aspirin 81 Aspirin 81 12/15/2018 UNIT 1 suspended Miniprin RADHA MG Delayed Oral Tablet 12:00:00 AM ([place] Release Oral Delayed EDT [facility]hood Tablet Release [facility] Aspirin 81 [place]) Oral Tablet Delayed Release Easy Trak Easy Trak 12/15/2018 UNIT 1 suspended Easy Trak RADHA Blood Blood 12:00:00 AM Blood (Hugh King Glucose Test Glucose EDT Glucose T est [facility] In Vitro Test In Health Strip Vitro Strip Center) Keppra 500MG Keppra 12/15/2018 UNIT 1 suspended Keppra RADHA Oral Tablet 500MG Oral 12:00:00 AM ([place] Tablet EDT [facility]) Metoprolol Metoprolol 12/15/2018 UNIT 1 suspended Metoprolol RADHA Tartrate 25 Tartrate 12:00:00 AM Ta rtrate ([place] MG Oral 25MG Oral EDT [place] Tablet Tablet Health Metoprolol [place]) Tartrate 25MG Oral Tablet Menthol 0.05 [place] 12/15/2018 UNIT 1 suspended Absorbine RADHA MG/MG Ultra 12:00:00 AM ([place] Transdermal Strength 5% EDT [facility] Patch [place] External Hea lth Ultra Patch Center) Strength 5% External Patch Voltaren 1% Voltaren 1% 12/15/2018 APPLICA 1 suspended Voltaren RADHA Transdermal Transdermal 12:00:00 AM TION ([place] Gel Gel EDT [facility]) Janumet Janumet 12/15/2018 UNIT 1 suspended Jasson umet RADHA 50-1000MG 50-1000MG 12:00:00 AM ([place] Oral Tablet Oral Tablet EDT [facility]) Glipizide 10 glipiZIDE 12/15/2018 UNIT 1 suspended glipiZIDE RADHA MG Oral 10MG Oral 12:00:00 AM ([place] Tablet Tablet T [facility] d glipiZIDE Health 10MG Oral [place]) Tablet Alprazolam 2 Xanax 2 mg 11/23/2018 1 ORA completed Alprazolam 2 NEXTGEN MG Oral tablet 12:00:00 AM {t L MG Oral ([facility] Tablet EDT bl Tablet Twyla [Xanax] } [Xanax] Medical Xanax 2 mg [place]) tablet I stop #[id number] quetiapine Seroquel 200 11/23/2018 1 ORAL completed quetiapine NEXTGEN 200 MG Oral mg tablet 12:00:00 AM {tbl} 200 MG Oral ([facility] Tablet EDT Tablet Twyla [Seroquel] [Seroquel] Med ical Seroquel 200 [place]) mg tablet Glipizide 10 glipiZIDE 11/21/2018 UNI 1 suspended glipiZIDE RADHA MG Oral 10MG Oral 12:00:00 AM T ([place] Tablet Tablet EDT Fernando glipiZIDE [place] 10MG Oral od Health Tablet [place]) Keppra 500MG Keppra 500MG 11/21/2018 UNI 1 suspended Keppra RADHA Oral Tablet Oral Tablet 12:00:00 AM T ([facility] EDT Fernando [facility] Health [place]) Metoprolol Metoprolol 11/21/2018 UNI 1 suspended Metoprolol RADHA Tartrate 25 Tartrate 12:00:00 AM T Ta rtrate ([place] MG Oral 25MG Oral EDT Fernando Tablet Tablet [facility] Metoprolol od Health Tartrate [place]) 25MG Oral Tablet Janumet Janumet 11/21/2018 UNI 1 suspended Jasson umet RADHA 50-1000MG 50-1000MG 12:00:00 AM T ([place] Oral Tablet Oral Tablet EDT V ernon [facility]) Simvastatin Simvastatin 11/21/2018 UNI 1 suspended Simvastatin RADHA 20 MG Oral 20MG Oral 12:00:00 AM T ([place] Tablet Tablet EDT Fernando Simvastatin Neighbor ho 20MG Oral od Health Tablet [place]) quetiapine Seroquel 200 10/26/2018 1 ORAL completed quetiapine NEXTGEN 200 MG Oral mg tablet 12:00:00 AM {tbl} 200 MG Oral ([facility] Tablet EDT Tablet Twyla [Seroquel] [Seroquel] Med ical Seroquel 200 [place]) mg tablet Alprazolam 2 Xanax 2 mg 10/26/2018 1 ORAL completed Alprazolam 2 NEXTGEN MG Oral tablet 12:00:00 AM {tbl} MG Oral ([facility] Tablet EDT Tablet Twyla [Xanax] [Xanax] Medical Xanax 2 mg [place]) tablet I stop #[id number] Neurontin Neurontin 10/18/2018 UNIT 1 active Ne urontin RADHA 300MG Oral 300MG Oral 12:00:00 AM ([place] Capsule Capsule T [facility]) SEROquel XR SEROquel XR 10/18/2018 UNIT 1 active Seroquel RADHA 150MG Oral 150MG Oral 12:00:00 AM ([place] Tablet Tablet T [facility] d Extended Extended Health Release [address]) Hour Hour Metoprolol Metoprolol 10/18/2018 UNIT 1 suspended Metoprolol RADHA Tartrate 25 Tartrate 12:00:00 AM Ta rtrate ([place] MG Oral 25MG Oral EDT [facility] Tablet Tablet Health Metoprolol [place]) Tartrate 25MG Oral Tablet Xanax 0.25MG Xanax 0.25MG 10/18/2018 UNIT 1 suspended Xanax RADHA Oral Tablet Oral Tablet 12:00:00 AM ([place] [facility]) NovoLIN R NovoLIN R 10/18/2018 CAPFUL completed Novolin R RADHA 100UNIT/ML 100UNIT/ML 12:00:00 AM DOSING ([place] IJ SOLN IJ SOLN EDT UNIT [facility]) Medication administered onsite [facility]: [id number] Lisinopril 10 Lisinopril 10/18/2018 UNIT 1 completed Lisinopril RADHA MG Oral 10MG Oral 12:00:00 AM ([place] Tablet Tablet EDT [facility] d Lisinopril Health 10MG Oral [place]) Tablet Lancets Lancets 10/18/2018 UNIT 1 completed Marc cets RADHA Miscellaneous Miscellaneous 12:00:00 AM ([facility]) Keppra 500MG Keppra 500MG 10/18/2018 UNIT 1 suspended Keppra RADHA Oral Tablet Oral Tablet 12:00:00 AM ([facility]) Easy Trak Easy Trak 10/18/2018 UNIT 1 suspended Easy Trak RADHA Blood Glucose Blood Glucose 12:00:00 AM Blood ([place] Test In Vitro Test In Vitro EDT Gl ucose [facility] Strip Strip Test [facility]) Aspirin 81 MG Aspirin 81 10/18/2018 UNIT 1 suspended Miniprin RADHA Delayed Oral Tablet 12:00:00 AM ([place] Release Oral Delayed EDT [facility]hood Tablet Release [facility] Aspirin 81 [place]) Oral Tablet Delayed Release Alprazolam 2 Xanax 2 mg 09/28/2018 1 ORA completed Alprazolam NEXTGEN MG Oral tablet 12:00:00 AM {t L 2 MG Ora l ([facility] Tablet EDT bl Tablet Twyla [Xanax] Xanax } [Xanax] Med ical 2 mg tablet [place]) I stop #[id number] quetiapine Seroquel 09/28/2018 1 ORAL completed quetiapine NEXTGEN 200 MG Oral 200 mg 12:00:00 AM {tbl} 200 MG Oral ([facility] Tablet tablet EDT Tablet Twyla [Seroquel] [Seroquel] Med ical Seroquel 200 [place]) mg tablet 12 HR Ranolazine 09/27/2018 UNI 1 active Ranol azine ER RADHA ranolazine ER 500MG 12:00:00 AM T ([place] 500 MG Oral Tablet EDT Fernando Extended Extended [place] Release Oral Release 12 o od Tablet Hour [facility] Ranolazine ER [place] ) 500MG Oral Tablet Extended Release 12 Hour atorvastatin Atorvastati 09/27/2018 UNI 1 suspended Atorvastatin RADHA 40 MG Oral n Calcium 12:00:00 AM T Ca lcium ([place] Tablet 40MG Oral EDT Fernando Atorvastatin Tablet Neigh borh Calcium 40MG o Oral Tablet [facility]) Janumet Janumet 09/13/2018 UNI 1 suspended Jasson umet RADHA 50-1000MG 50-1000MG 12:00:00 AM T ([place] Oral Tablet Oral Tablet EDT V [facility]) Glipizide 10 glipiZIDE 09/13/2018 UNI 1 suspended glipiZIDE RADHA MG Oral 10MG Oral 12:00:00 AM T ([place] Tablet Tablet EDT [place] glipiZIDE [facility] 10MG Oral [facility]) Simvastatin Simvastatin 09/13/2018 UNI 1 suspended Simvastatin RADHA 20 MG Oral 20MG Oral 12:00:00 AM T ([facility] Tablet Tablet EDT [place] Simvastatin Neighbor h 20MG Oral [facility] Tablet [facility]) Macrobid Macrobid 09/13/2018 UNI 1 completed M acrobid RADHA 100MG Oral 100MG Oral 12:00:00 AM T ([facility] Capsule Capsule EDT [facility]) NovoLIN R NovoLIN R 09/13/2018 CAP completed Novolin R RADHA 100UNIT/ML IJ 100UNIT/ML 12:00:00 AM FUL ([facility] SOLN IJ SOLN EDT DOS [facility]) Medication administered onsite [facility]: [id number] Keppra 500MG Keppra 09/13/2018 UNIT 1 suspended Keppra RADHA Oral Tablet 500MG 12:00:00 AM ([place] Oral EDT [facility]) Alprazolam 2 Xanax 2 08/31/2018 1 ORAL completed Alprazolam NEXTGEN MG Oral mg 12:00:00 AM {tb 2 MG Oral ([facility] Tablet tablet EDT l} Tablet Twyla [Xanax] [Xanax] Medical Xanax 2 mg [place]) tablet I stop #[id number] quetiapine Seroquel 08/31/2018 1 ORAL completed quetiapine NEXTGEN 200 MG Oral 200 mg 12:00:00 AM {tbl} 200 MG Oral (Saint Tablet tablet EDT Tablet Twyla [Seroquel] [Seroquel] Med ical Seroquel 200 Center) mg tablet Flonase Flonase 08/26/2018 CAP 1 completed Prashanth nase RADHA Allergy Allergy 12:00:00 AM FUL (M ount Relief Relief EDT DOS Fernando 50MCG/ACT 50MCG/ACT ING [place] Nasal Nasal UNI od Health Suspension Suspension T Pat ter) cetirizine Cetirizine 08/26/2018 UNI 1 completed Cetirizine RADHA hydrochloride HCl 10MG 12:00:00 AM T HCl ([facility] 10 MG Oral Oral Tablet EDT Ve rnon Tablet [facility] Cetirizine od Health HCl 10MG Oral [...] Oral Tablet Oral Tablet EDT V ernon [facility]) Glipizide 10 glipiZIDE 08/26/2018 UNI 1 suspended glipiZIDE RADHA MG Oral 10MG Oral 12:00:00 AM T ([facility] Tablet Tablet EDT Fernando glipiZIDE [facility] 10MG Oral od Health Tablet Center) Naproxen 500 Naproxen 08/26/2018 UNI 1 completed Naproxen RADHA MG Oral 500MG Oral 12:00:00 AM T ([facility] Tablet Tablet EDT Fernando Naproxen [facility] 500MG Oral od Health Tablet Center) Aspirin 81 MG Aspirin 81 08/12/2018 UNI 1 suspended Miniprin RADHA Delayed Oral Tablet 12:00:00 AM T ([facility] Release Oral Delayed EDT Anjel on [facility] 81 od Health Oral Tablet Center) Delayed Release Keppra 500MG Keppra 08/12/2018 UNI 1 suspended Keppra RADHA Oral Tablet 500MG Oral 12:00:00 AM T ([facility] [place] Metoprolol Metoprolol 08/12/2018 UNI 1 suspended Metoprolol RADHA Tartrate 25 Tartrate 12:00:00 AM T Ta rtrate (Mount MG Oral 25MG Oral EDT Fernando Tablet Tablet [facility] Metoprolol od Health Tartrate 25MG Center ) Oral Tablet Simvastatin Simvastatin 08/12/2018 UNI 1 suspended Simvastatin RADHA 40 MG Oral 40MG Oral 12:00:00 AM T ([facility] Tablet Tablet EDT Fernando Simvastatin [facility] 40MG Oral od Health Tablet Center) Janumet Janumet 08/12/2018 UNI 1 suspended Jasson umet RADHA 50-1000MG 50-1000MG 12:00:00 AM T ([facility] Oral Tablet Oral Tablet EDT [facility]) 24 HR glipiZIDE 08/12/2018 UNI [...] AM T ([facility] Capsule Capsule EDT [facility]) Omeprazole 40 Omeprazole 08/12/2018 UNI 1 suspended Omeprazole RADHA MG Delayed 40MG Oral 12:00:00 AM T ([facility] Release Oral Capsule EDT Anjel on Capsule Delayed [facility] Omeprazole Release od Hea lth 40MG Oral Center) Capsule Delayed Release Keppra 500MG Keppra 08/12/2018 UNI 1 active Ke ppra RADHA Oral Tablet 500MG Oral 12:00:00 AM T ([facility] Tablet EDT Fernando [facility] Center) Lisinopril 10 Lisinopril 08/12/2018 UNI 1 active Lisinopril RADHA MG Oral 10MG Oral 12:00:00 AM T ([facility] Tablet Tablet EDT Fernando Lisinopril [facility] 10MG Oral od Health Tablet Center) Metoprolol Metoprolol 08/12/2018 UNI 1 active Metoprolol RADHA Tartrate 25 Tartrate 12:00:00 AM T Ta rtrate ([facility] MG Oral 25MG Oral EDT Fernando Tablet Tablet [facility] Metoprolol od Health Tartrate 25MG Center ) Oral Tablet Easy Trak Easy Trak 08/11/2018 UNI 1 suspended Easy Trak RADHA Blood Glucose Blood 12:00:00 AM T Blo od ([facility] Test In Vitro Glucose EDT Glucose Test Fernando Strip Test In [facility] Vitro Strip od [facility]) Lancets Lancets 08/11/2018 UNI 1 suspended Marc cets RADHA Miscellaneous Miscellaneo 12:00:00 AM T ([facility] us EDT Fernando [facility]) Blood Glucose Blood 08/11/2018 UNI completed Blood RADHA System [facility] Glucose 12:00:00 AM T Gluc ose ([facility] Kit System [facility] EDT System Korey Gaurav non Kit [facility]) Augmentin Augmentin 08/11/2018 UNI 1 completed Augmentin RADHA 875-125MG 875-125MG 12:00:00 AM T ([facility] Oral Tablet Oral Tablet EDT V ernon [facility]) quetiapine Seroquel 08/03/2018 1 ORAL completed quetiapine NEXTGEN 200 MG Oral 200 mg 12:00:00 AM {tbl} 200 MG Oral (Saint Tablet tablet EDT Tablet Twyla [Seroquel] [Seroquel] Med ical Seroquel 200 [place]) mg tablet Alprazolam 2 Xanax 2 mg 08/03/2018 1 ORAL completed Alprazolam 2 NEXTGEN MG Oral tablet 12:00:00 AM {tbl} MG Oral (Saint Tablet EDT Tablet Twyla [Xanax] Xanax [Xanax] Med ical 2 mg tablet [place]) I stop #[id number] NovoLIN R NovoLIN R 07/21/2018 CAPFUL completed Novolin RADHA 100UNIT/ML 100UNIT/ML 12:00:00 AM DOSING R ([place] IJ SOLN IJ SOLN EDT UNIT [facility]) Medication administered onsite [id number] Metoprolol Metoprolol 07/18/2018 UNIT 1 suspended Metoprolol RADHA Tartrate 25 Tartrate 12:00:00 AM Ta rtrate ([place] MG Oral 25MG Oral EDT [facility] Tablet Tablet Health Metoprolol [place]) Tartrate 25MG Oral Tablet Lisinopril 10 Lisinopril 07/18/2018 UNIT 1 suspended Lisinopril RADHA MG Oral 10MG Oral 12:00:00 AM ([place] Tablet Tablet EDT [facility] d Lisinopril Health 10MG Oral [place]) Tablet Glyburide 5 glyBURIDE-Me 07/18/2018 UNIT 1 suspended glyBURIDE-me RADHA MG / tFORMIN 12:00:00 AM tFORMIN ([facility] Metformin 5-500MG Oral EDT Ne ighborhood hydrochloride Tablet Heal th 500 MG Oral [place]) Tablet glyBURIDE-Met FORMIN 5-500MG Oral Tablet Simvastatin Simvastatin 07/18/2018 UNIT 1 suspended Simvastatin RADHA 20 MG Oral 20MG Oral 12:00:00 AM ([place] Tablet Tablet EDT [facility] Simvastatin Health 20MG Oral [place]) Tablet NovoLIN R NovoLIN R 07/18/2018 CAPFUL completed Novolin R RADHA 100UNIT/ML IJ 100UNIT/ML 12:00:00 AM DOSING ([place] SOLN IJ SOLN EDT UNIT [facility]) Medication administered onsite [id number] Metformin metFORMIN 07/18/2018 UNIT 1 suspended metFORMIN RADHA hydrochloride HCl 1000MG 12:00:00 AM HCl ([place] 1000 MG Oral Oral EDT [facility] Tablet Tablet Health metFORMIN HCl [place] ) 1000MG Oral Tablet Tylenol 8 Hour Tylenol 8 07/18/2018 UNIT 1 completed Mapap RADHA Arthritis Pain Hour 12:00:00 AM ([place] 650MG Oral Arthritis EDT Neig hborhood Tablet Pain 650MG Health Extended Oral [place]) Release Tablet Extended Release quetiapine 200 Seroquel 07/06/2018 1 ORAL completed quetiapine NEXTGEN MG Oral Tablet 200 mg 12:00:00 AM {t 2 00 MG Oral (Saint [Seroquel] tablet EDT bl Tablet Bakari hs Seroquel 200 } [Seroquel] M edical mg tablet [place]) Alprazolam 2 Xanax 2 mg 07/06/2018 1 ORAL completed Alprazolam NEXTGEN MG Oral Tablet tablet 12:00:00 AM {t 2 MG Oral (Saint [Xanax] Xanax EDT bl Tablet Rob phs 2 mg tablet } [Xanax] Medic al [place]) I stop #[id number] Diclofenac Voltaren 1 % 02/16/2018 active diclofenac NEXTGEN Sodium 0.01 topical gel 12:00:00 AM sodium 0.01 (Saint MG/MG Topical EST MG/MG Topic al Twyla Gel [Voltaren] Gel [[place]] Medical Voltaren 1 % [place]) topical gel Folic Acid 1 Folic Acid 11/27/2016 UNIT 1 suspended Folic Acid RADHA MG Oral Tablet 1MG Oral 12:00:00 AM ([facility] Folic Acid 1MG Tablet EDT Gaurav non Oral Tablet [facility]) Aspirin 81 MG Adult 11/27/2016 UNIT 1 [...] Metoprolol Tablet [place]igh[place] [facility]ho Tartrate 25MG od [facility] Oral Tablet [place]) Lisinopril 10 Lisinopril 11/27/2016 UNIT 1 suspended Lisinopril RADHA MG Oral Tablet 10MG Oral 12:00:00 AM ([facility] Lisinopril Tablet EDT Fernando 10MG Oral [facility] Tablet [facility]) Tylenol 8 Hour Tylenol 8 11/27/2016 UNIT 1 suspended Mapap RADHA Arthritis Pain Hour 12:00:00 AM ([facility] 650MG Oral Arthritis EDT Anjel on Tablet Pain 650MG [facility] Extended Oral Tablet od H ealt Release Extended Center) Release Simvastatin 20 Simvastatin 11/27/2016 UNIT 1 suspended Simvastatin RADHA MG Oral Tablet 20MG Oral 12:00:00 AM ([place] Simvastatin Tablet EDT Fernando 20MG Oral [facility] Tablet [facility]) Glyburide 5 MG GlyBURIDE-Me 11/27/2016 UNIT 1 suspended glyBURIDE-metF RADHA / Metformin tFORMIN 12:00:00 AM ORM IN ([place] hydrochloride 5-500MG Oral EDT Fernando 500 MG Oral Tablet Neighb orho Tablet od [facility] GlyBURIDE-MetF Cente r) ORMIN 5-500MG Oral Tablet Ambien 10MG Ambien 10MG 11/27/2016 UNIT suspended Ambien RADHA Oral Tablet Oral Tablet 12:00:00 AM ([place] EDT [facility] Senna 8.6MG Senna 8.6MG 11/27/2016 UNIT 1 suspended Senna RADHA Oral Tablet Oral Tablet 12:00:00 AM ([place] EDT [facility]) Omeprazole 40 Omeprazole 11/27/2016 UNIT 1 [...] bl [Xanax] Mihir ephs 2 mg tablet [facility]) Naproxen 500 Naproxen 07/24/2013 UNIT suspended Naproxen RADHA MG Oral Tablet 500MG OR 12:00:00 AM ([facility] Naproxen 500MG TABS EDT Verno n OR TABS [facility]) Lac-Hydrin 12% Lac-Hydrin 06/21/2013 APPL 1 completed Brenda-Hydrolac RADHA EX LOTN 12% EX LOTN 12:00:00 AM ICAT ([facility] EDT ION Fernando [facility]) Zithromax Zithromax 06/05/2013 UNIT completed Zithromax RADHA 250MG OR TABS 250MG OR 12:00:00 AM ([facility] TABS EST [facility]) Flonase Flonase 02/02/2013 CAPF 1 suspended Prashanth nase RDAHA 50MCG/ACT NA 50MCG/ACT NA 12:00:00 AM UL ([facility] Clarithromycin Clarithromyc 02/02/2013 UNIT 1 suspended Clarithromycin RADHA 500 MG Oral in 500MG OR 12:00:00 AM ([facility] Tablet [facility]S [facility]) Claritin 10MG Claritin 02/02/2013 UNIT 1 suspended Wal-itin RADHA OR TABS 10MG OR TABS 12:00:00 AM ([facility]) Glucovance Glucovance 09/01/2012 UNIT 1 suspended Glucovance RADHA 5-500MG OR 5-500MG OR 12:00:00 AM ([facility] TABS TABS [facility]) Benicar HCT Benicar HCT 09/01/2012 UNIT 1 suspended Benicar HCT RADHA 40-12.5MG OR 40-12.5MG OR 12:00:00 AM ([facility] TABS TABS [facility]) Metoprolol Metoprolol 09/01/2012 UNIT 1 suspended Metoprolol RADHA Tartrate 25 MG Tartrate 12:00:00 AM Tartrate ([facility] Oral Tablet 25MG OR TABS EDT Fernando Metoprolol [facility] o Tartrate 25MG od [facility] OR [facility]) Dilantin 100MG Dilantin 09/01/2012 UNIT 1 suspended Dilantin RADHA OR CAPS 100MG OR 12:00:00 AM ( [facility] CAPS [facility]) Benicar HCT Benicar HCT 12/22/2011 UNIT 1 suspended Benicar HCT RADHA 40-12.5MG OR 40-12.5MG OR 12:00:00 AM ([facility] TABS TABS EDT [facility]) Metoprolol Metoprolol 12/22/2011 UNIT 1 suspended Metoprolol RADHA Tartrate 25 MG Tartrate 12:00:00 AM Tartrate ([facility] Oral Tablet 25MG OR TABS EDT Fernando Metoprolol [facility] Tartrate 25MG od [facility] OR [facility]) Glucovance Glucovance 11/25/2011 UNIT 1 suspended Glucovance RADHA 5-500MG OR 5-500MG OR 12:00:00 AM ([facility] TABS TABS [facility]) Dilantin 100MG Dilantin 11/09/2011 UNIT 1 suspended Dilantin RADHA OR CAPS 100MG OR 12:00:00 AM ( [facility] CAPS [facility]) Benicar HCT Benicar HCT 11/09/2011 UNIT 1 suspended Benicar HCT RADHA 40-12.5MG OR 40-12.5MG OR 12:00:00 [facility] Glucovance Glucovance 11/09/2011 UNIT 1 suspended Glucovance RADHA 5-500MG OR 5-500MG OR 12:00:00 AM [facility]) Metoprolol Metoprolol 11/09/2011 UNIT 1 suspended Metoprolol RADHA Tartrate 25 MG Tartrate 12:00:00 AM Tartrate ([facility] Oral Tablet 25MG OR TABS EDT Fernando Metoprolol [facility] Tartrate 25MG od [facility] OR [facility]) Ecotrin Low Ecotrin Low 11/09/2011 UNIT 1 suspended Miniprin RADHA Strength 81 MG Strength 81 12:00:00 AM ([facility] SEROquel 50MG SEROquel 11/09/2011 UNIT 1 suspended Seroquel RADHA OR TABS 50MG OR TABS 12:00:00 AM ([facility]) Flomax 0.4MG Flomax 0.4MG 11/09/2011 UNIT 1 suspended Flomax RADHA OR CAPS OR CAPS 12:00:00 AM (M ount [facility]) Dilantin 100MG Dilantin 11/09/2011 UNIT 1 suspended Dilantin RADHA OR CAPS 100MG OR 12:00:00 AM ( [facility] CAPS [facility]) NexIUM 40MG OR NexIUM 40MG 11/09/2011 UNIT 1 suspended Nexium RADHA CPDR OR CPDR 12:00:00 AM (Moun t [facility]) Ecotrin Low Ecotrin Low 11/09/2011 UNIT 1 suspended Miniprin RADHA Strength 81 MG Strength 81 12:00:00 AM ([facility] TBEC MG TBEC [facility]) Metoprolol Metoprolol 11/09/2011 UNIT 1 suspended Metoprolol RADHA Tartrate 25 MG Tartrate 12:00:00 AM Tartrate ([facility] Oral Tablet 25MG OR TABS [facility] T[facility] od [facility] OR TABS [place]) Glucovance Glucovance 11/09/2011 UNIT 1 suspended Glucovance RADHA 5-500MG OR 5-500MG OR 12:00:00 AM ([facility] TABS TABS [facility]) Benicar HCT Benicar HCT 11/09/2011 UNIT 1 suspended Benicar HCT RADHA 40-12.5MG OR 40-12.5MG OR 12:00:00 AM ([facility] TABS TABS [facility]) Alprazolam 2 ALPRAZolam 2 1 completed [facility] MG Oral Tablet mg TabletTwyla ALPRAZolam 2 Ordered By: Medical mg Tablet [facility] Ordered By: Isaiah Portillo MDDirections MDDirections: : 1 tablet 1 tablet oral oral twice a twice a day day PRN PRN anxiety anxiety quetiapine 200 QUEtiapine 1 completed [facility] MG Oral Tablet 200 mg Mihir ephs QUEtiapine 200 Tablet, Me dical mg Tablet, Ordered By: Adrianna bravo Ordered By: Shravan Tovar, MDDirections: MDDirections 1 tablet oral : 1 tablet daily at oral daily bedtime at bedtime Insurance Providers Payer name Policy type / Policy ID Covered Covered Policy Plan Coverage type constitution party ID constitution party's Patel Inform ation relationship to patel MEDICARE [id number] SP [id number] MEDICAID [id number] SP [id number] JEFFERY MEDICARE [id number] SP [id number] ADV PLAN JEFFERY HMO [id number] MEDICARE OP [id number] [place] Care New Individual 0 Self 0 [place] Policy [place] Care New Individual 0 Self 0 [place] Policy [place] Care [place] Individual 0 Self 0 [place] Policy Center Point Care [place] Individual 0 Self 0 [place] Policy [place] Care [place] Individual 0 Self 0 [place] Policy [place] Care [place] Individual 0 Self 0 [place] Center [place] Care [place] Individual 0 Self 0 [place] Policy Jeffery Care New Individual 0 Self 0 [place] Policy Jeffery Care New Individual 0 Self 0 [place] Center Point Care [place] Individual 0 Self 0 [place] Policy Jeffery Care New Individual 0 Self 0 [place] Policy Jeffery Care New Individual 0 Self 0 [place] Center Point Care New Individual 0 Self 0 [place] Policy Jeffery Care New Individual 0 Self 0 [place] Policy Jeff[place] Care New Individual 0 Self 0 [place] Center Point Care [place] Individual 0 Self 0 [place] Center Point Care [place] Individual 0 Self 0 [place] Center Point Care [place] Individual 0 Self 0 [place] Policy Jeffery Care New Individual 0 Self 0 [place] Center Point Care [place] Individual 0 Self 0 [place] Center Point Care [place] Individual 0 Self 0 [place] Center Point Care [place] Individual 0 Self 0 [place] Center [place] Care [place] Individual 0 Self 0 [place] Center Point Care [place] Individual 0 Self 0 [place] Policy JEFFERY HMO [id number] MEDICARE OP Center Point Care [place] Individual 0 Self 0 [place] Policy [place] Care [place] Individual 0 Self 0 [place] Policy [place] Care [place] Individual 0 Self 0 [place] Policy Center Point Care [place] Individual 0 Self 0 [place] Policy [place] Care [place] Individual 0 Self 0 [place] Policy Center Point Care [place] Individual 0 Self 0 [place] Policy [place] Care New Individual 0 Self 0 [place] Policy CARMELITA MEDICARE [id number] Center Point Care [place] Individual 0 Self 0 [place] Policy [place] Care New Individual 0 Self 0 [place] Policy [place] Care New Individual 0 Self 0 [place] Policy Center Point Care [place] Individual 0 Self 0 [place] Policy Center Point Care [place] Individual 0 Self 0 [place] Policy Jeffery Care New Individual 0 Self 0 [place] Policy Jeffery Care New Individual 0 Self 0 [place] Policy Jeffery Care New Individual 0 Self 0 [place] Center Point Care [place] Individual 0 Self 0 [place] Policy Jeffery Care New Individual 0 Self 0 [place] Center Point Care [place] Individual 0 Self 0 [place] Policy Jeffery Care New Individual 0 Self 0 [place] Policy Jeff[place] Care New Individual 0 Self 0 [place] Center Point Care [place] Individual 0 Self 0 [place] Policy Center Point Care [place] Individual 0 Self 0 [place] Center Point Care [place] Individual 0 Self 0 [place] Center Point Care [place] Individual 0 Self 0 [place] Policy [place] Care New Individual 0 Self 0 [place] Center Point Care [place] Individual 0 Self 0 [place] Center Point Care [place] Individual 0 Self 0 [place] MEDICAID [id number] [place] Care [place] Individual 0 Self 0 [place] Policy [place] Care New Individual 0 Self 0 [place] Policy Jeff[place] Care New Individual 0 Self 0 [place] Policy [place] Care New Individual 0 Self 0 [place] Policy Center Point Care New Individual 0 Self 0 [place] Policy [id number] M Medicare-Blue [id number] S [id number] Cross/Blue Shield Dental [id number] S [id number] DentaQuest MCRE MNGD Care [place] Vision [id number] S [id number] MCRE MNGD Care Dental [id number] S [id number] Dentaquest MKD Medicare [place] [id number] S [id number] Government Services Medicaid [id number] MH [id number] S [id number] Psychotherapy Only Medicaid [id number] MH [id number] S [id number] Psychotherapy Only Medicaid 4013 [id number] S [id number] Regular Clinic Visit Medicaid [id number] S [id number] Regular Clinic Visit Jeffery Medicare [id number] S [id number] Problems, Conditions, and Diagnoses Code Display Name Description Problem Effective Data Type Dates Source(s) [id number] Polyneuropathy Polyneuropathy Problem 05/20/2019 [place] (disorder) 12:00:00 ([facility]) [id number] Depressive disorder Depression Problem 05/20/[address] (disorder) 12:00:00 ([facility]) [id number] Polyneuropathy Polyneuropathy Problem 05/20/2019 [place] (disorder) 12:00:00 ([facility]) [id number] Depressive disorder Depression Problem 05/20/[address] (disorder) 12:00:00 ([facility]) [id number] Polyneuropathy Polyneuropathy Problem 05/20/2019 [place] (disorder) 12:00:00 ([facility]) [id number] Depressive disorder Depression Problem 05/20/[address] (disorder) 12:00:00 ([facility]) [id number] Polyneuropathy Polyneuropathy Problem 05/20/2019 [place] (disorder) 12:00:00 ([facility]) [id number] Depressive disorder Depression Problem 05/20/[address] (disorder) 12:00:00 ([facility]) [id number] Polyneuropathy Polyneuropathy Problem 05/20/2019 [place] (disorder) 12:00:00 ([facility]) [id number] Depressive disorder Depression Problem 05/20/[address] (disorder) 12:00:00 ([facility]) [id number] Polyneuropathy Polyneuropathy Problem 05/20/2019 [place] (disorder) 12:00:00 ([facility]) [id number] Depressive disorder Depression Problem 05/20/[address] (disorder) 12:00:00 ([facility]) [id number] Polyneuropathy Polyneuropathy Problem 05/20/2019 [place] (disorder) 12:00:00 ([facility]) [id number] Depressive disorder Depression Problem 05/20/[address] (disorder) 12:00:00 ([facility]) [id number] Polyneuropathy Polyneuropathy Problem 05/20/2019 [place] (disorder) 12:00:00 ([facility]) [id number] Depressive disorder Depression Problem 05/20/[address] (disorder) 12:00:00 ([facility]) [id number] Polyneuropathy Polyneuropathy Problem 05/20/2019 [place] (disorder) 12:00:00 ([facility]) [id number] Depressive disorder Depression Problem 05/20/[address] (disorder) 12:00:00 ([facility]) [id number] Polyneuropathy Polyneuropathy Problem 05/20/2019 [place] (disorder) 12:00:00 ([facility]) [id number] Depressive disorder Depression Problem 05/20/[address] (disorder) 12:00:00 ([facility]) [id number] Polyneuropathy Polyneuropathy Problem 05/20/2019 [place] (disorder) 12:00:00 ([facility]) [id number] Depressive disorder Depression Problem 05/20/[address] (disorder) 12:00:00 ([facility]) [id number] Polyneuropathy Polyneuropathy Problem 05/20/2019 [place] (disorder) 12:00:00 ([facility]) [id number] Depressive disorder Depression Problem 05/20/[address] (disorder) 12:00:00 ([facility]) [id number] Polyneuropathy Polyneuropathy Problem 05/20/2019 [place] (disorder) 12:00:00 ([facility]) [id number] Depressive disorder Depression Problem 05/20/[address] (disorder) 12:00:00 ([facility]) [id number] Polyneuropathy Polyneuropathy Problem 05/20/2019 [place] (disorder) 12:00:00 ([facility]) [id number] Depressive disorder Depression Problem 05/20/[address] (disorder) 12:00:00 ([facility]) [id number] Polyneuropathy Polyneuropathy Problem 05/20/2019 [place] (disorder) 12:00:00 ([facility]) [id number] Depressive disorder Depression Problem 05/20/[address] (disorder) 12:00:00 ([facility]) [id number] Polyneuropathy Polyneuropathy Problem 05/20/2019 [place] (disorder) 12:00:00 ([facility]) [id number] Depressive disorder Depression Problem 05/20/[address] (disorder) 12:00:00 ([facility]) [id number] Polyneuropathy Polyneuropathy Problem 05/20/2019 [place] (disorder) 12:00:00 ([facility]) [id number] Depressive disorder Depression Problem 05/20/[address] (disorder) 12:00:00 ([facility]) [id number] Polyneuropathy Polyneuropathy Problem 05/20/2019 [place] (disorder) 12:00:00 ([facility]) [id number] Depressive disorder Depression Problem 05/20/[address] (disorder) 12:00:00 ([facility]) [id number] Polyneuropathy Polyneuropathy Problem 05/20/2019 [place] (disorder) 12:00:00 ([facility]) [id number] Depressive disorder Depression Problem 05/20/[address] (disorder) 12:00:00 ([facility]) [id number] Polyneuropathy Polyneuropathy Problem 05/20/2019 [place] (disorder) 12:00:00 ([facility]) [id number] Depressive disorder Depression Problem 05/20/[address] (disorder) 12:00:00 ([facility]) [id number] Polyneuropathy Polyneuropathy Problem 05/20/2019 [place] (disorder) 12:00:00 ([facility]) [id number] Depressive disorder Depression Problem 05/20/[address] (disorder) 12:00:00 ([facility]) [id number] Polyneuropathy Polyneuropathy Problem 05/20/2019 [place] (disorder) 12:00:00 ([facility]) [id number] Depressive disorder Depression Problem 05/20/[address] (disorder) 12:00:00 ([facility]) [id number] Polyneuropathy Polyneuropathy Problem 05/20/2019 [place] (disorder) 12:00:00 ([facility]) [id number] Depressive disorder Depression Problem 05/20/[address] (disorder) 12:00:00 ([facility]) [id number] Polyneuropathy Polyneuropathy Problem 05/20/2019 [place] (disorder) 12:00:00 ([facility]) [id number] Depressive disorder Depression Problem 05/20/[address] (disorder) 12:00:00 ([facility]) [id number] Hypercholesterolemia Hypercholesterolemia Problem 02/01 [place] (disorder) 12:00:00 ([facility]) [id number] Hypercholesterolemia Hypercholesterolemia Problem 02/01 [place] (disorder) 12:00:00 ([facility]) [id number] Hypercholesterolemia Hypercholesterolemia Problem 02/01 [place] (disorder) 12:00:00 ([facility]) [id number] Hypercholesterolemia Hypercholesterolemia Problem 02/01 [place] (disorder) 12:00:00 ([facility]) [id number] Hypercholesterolemia Hypercholesterolemia Problem 02/01 [place] (disorder) 12:00:00 ([facility]) [id number] Hypercholesterolemia Hypercholesterolemia Problem 02/01 [place] (disorder) 12:00:00 ([facility]) [id number] Hypercholesterolemia Hypercholesterolemia Problem 02/01 [place] (disorder) 12:00:00 ([facility]) [id number] Hypercholesterolemia Hypercholesterolemia Problem 02/01 [place] (disorder) 12:00:00 ([facility]) [id number] Hypercholesterolemia Hypercholesterolemia Problem 02/01 [place] (disorder) 12:00:00 ([facility]) [id number] Hypercholesterolemia Hypercholesterolemia Problem 02/01 [place] (disorder) 12:00:00 ([facility]) [id number] Hypercholesterolemia Hypercholesterolemia Problem 02/01 [place] (disorder) 12:00:00 ([facility]) [id number] Hypercholesterolemia Hypercholesterolemia Problem 02/01 [place] (disorder) 12:00:00 ([facility]) [id number] Hypercholesterolemia Hypercholesterolemia Problem 02/01 [facility] (disorder) 12:00:00 ([facility]) [id number] Hypercholesterolemia Hypercholesterolemia Problem 02/01 [facility] (disorder) 12:00:00 ([facility]) [id number] Hypercholesterolemia Hypercholesterolemia Problem 02/01 [place] (disorder) 12:00:00 ([facility]) [id number] Hypercholesterolemia Hypercholesterolemia Problem 02/01 [place] (disorder) 12:00:00 ([facility]) [id number] Hypercholesterolemia Hypercholesterolemia Problem 02/01 [facility] (disorder) 12:00:00 ([facility]) [id number] Hypercholesterolemia Hypercholesterolemia Problem 02/01 [facility] (disorder) 12:00:00 ([facility]) [id number] Hypercholesterolemia Hypercholesterolemia Problem 02/01 [facility] (disorder) 12:00:00 ([facility]) [id number] Hypercholesterolemia Hypercholesterolemia Problem 02/01 [facility] (disorder) 12:00:00 ([facility]) [id number] Hypercholesterolemia Hypercholesterolemia Problem 02/01 [facility] (disorder) 12:00:00 ([facility]) [id number] Hypercholesterolemia Hypercholesterolemia Problem 02/01 [place] (disorder) 12:00:00 ([facility]) [id number] Hypercholesterolemia Hypercholesterolemia Problem 02/01 [place] (disorder) 12:00:00 ([facility]) [id number] Hypercholesterolemia Hypercholesterolemia Problem 02/01 [place] (disorder) 12:00:00 ([facility]) [id number] Hypercholesterolemia Hypercholesterolemia Problem 02/01 [place] (disorder) 12:00:00 ([facility]) [id number] Hypercholesterolemia Hypercholesterolemia Problem 02/01 [place] (disorder) 12:00:00 ([facility]) [id number] Hypercholesterolemia Hypercholesterolemia Problem 02/01 [facility] (disorder) 12:00:00 ([facility]) [id number] Hypercholesterolemia Hypercholesterolemia Problem 02/01 [facility] (disorder) 12:00:00 ([facility]) [id number] Low back pain Lumbago Finding 2018 [facility] (finding) 12:00:00 ([facility]) [id number] Low back pain Lumbago Finding 2018 [facility] (finding) 12:00:00 ([facility]) [id number] Low back pain Lumbago Finding 2018 [facility] (finding) 12:00:00 ([facility]) [id number] Low back pain Lumbago Finding 2018 [facility] (finding) 12:00:00 ([facility]) [id number] Low back pain Lumbago Finding 2018 [facility] (finding) 12:00:00 ([facility]) [id number] Low back pain Lumbago Finding 2018 [facility] (finding) 12:00:00 ([facility]) [id number] Low back pain Lumbago Finding 2018 [facility] (finding) 12:00:00 ([facility]) [id number] Low back pain Lumbago Finding 2018 [facility] (finding) 12:00:00 ([facility]) [id number] Low back pain Lumbago Finding 2018 [facility] (finding) 12:00:00 ([facility]) [id number] Low back pain Lumbago Finding 2018 [facility] (finding) 12:00:00 ([facility]) [id number] Low back pain Lumbago Finding 2018 [facility] (finding) 12:00:00 ([facility]) [id number] Low back pain Lumbago Finding 2018 [facility] (finding) 12:00:00 ([facility]) [id number] Low back pain Lumbago Finding 2018 [facility] (finding) 12:00:00 ([facility]) [id number] Low back pain Lumbago Finding 2018 [facility] (finding) 12:00:00 ([facility]) [id number] Low back pain Lumbago Finding 2018 [facility] (finding) 12:00:00 ([facility]) [id number] Low back pain Lumbago Finding 2018 [facility] (finding) 12:00:00 ([facility]) [id number] Low back pain Lumbago Finding 2018 [facility] (finding) 12:00:00 ([facility]) [id number] Low back pain Lumbago Finding 2018 [facility] (finding) 12:00:00 ([facility]) [id number] Low back pain Lumbago Finding 2018 [facility] (finding) 12:00:00 ([facility]) [id number] Low back pain Lumbago Finding 2018 [facility] (finding) 12:00:00 ([facility]) [id number] Low back pain Lumbago Finding 2018 [facility] (finding) 12:00:00 ([facility]) [id number] Low back pain Lumbago Finding 2018 [facility] (finding) 12:00:00 ([facility]) [id number] Low back pain Lumbago Finding 2018 [facility] (finding) 12:00:00 ([facility]) [id number] Low back pain Lumbago Finding 2018 [facility] (finding) 12:00:00 ([facility]) [id number] Low back pain Lumbago Finding 2018 [facility] (finding) 12:00:00 ([facility]) [id number] Low back pain Lumbago Finding 2018 [facility] (finding) 12:00:00 ([facility]) [id number] Low back pain Lumbago Finding 2018 [facility] (finding) 12:00:00 ([facility]) [id number] Low back pain Lumbago Finding 2018 [facility] (finding) 12:00:00 ([facility]) [id number] Low back pain Lumbago Finding 2018 [facility] (finding) 12:00:00 ([facility]) [id number] Low back pain Lumbago Finding 2018 [facility] (finding) 12:00:00 ([facility]) [id number] Low back pain Lumbago Finding 2018 [facility] (finding) 12:00:00 ([facility]) [id number] Low back pain Lumbago Finding 2018 [facility] (finding) 12:00:00 ([facility]) [id number] Low back pain Lumbago Finding 2018 [facility] (finding) 12:00:00 ([facility]) [id number] Low back pain Lumbago Finding 2018 [facility] (finding) 12:00:00 ([facility]) [id number] Low back pain Lumbago Finding 2018 [facility] (finding) 12:00:00 ([facility]) [id number] Gastroesophageal Gastroesophageal Problem 06/22/2013 [place] XTGEN reflux disease reflux disease 12:00:00 ([facility]) [id number] Insomnia Insomnia Problem 06/22/2013 NEXTGEN 12:00:00 ([facility]) [id number] Epilepsy Epilepsy Problem 06/22/2013 [facility] 12:00:00 ([facility]) [id number] Benign essential Benign essential Problem 06/22/2013 [place] XTGEN hypertension hypertension 12:00:00 ([facility]) [id number] Epilepsy (disorder) Epilepsy Problem 11/09/[address] 12:00:00 ([facility]) [id number] 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 Myocardial Problem 11/09/2011 [place] infarction (disorder) Infarction 12:00:00 ([place] [facility]) [id number] Benign prostatic Benign Prostatic Problem 11/09/2011 [place] hyperplasia Hypertrophy 12:00:00 ([place] [facility]) [id number] Essential Essential Problem 11/09/2011 [place] hypertension Hypertension 12:00:00 ([place] [facility] [place] [facility]) [id number] Diabetes mellitus Diabetes Mellitus Problem 11/09/2011 [place] (disorder) 12:00:00 ([place] [facility]) [id number] 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 12:00:00 ([place] ([place]) [facility]) [id number] Epilepsy (disorder) Epilepsy Problem 11/09/[address] [facility]:00:[facility] [id number] 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 Myocardial Problem 11/09/2011 [place] infarction (disorder) Infarction 12:00:00 ([place] [facility]) [id number] Benign prostatic Benign Prostatic Problem 11/09/2011 [place] hyperplasia Hypertrophy 12:00:00 ([place] ([place]) [facility]) [id number] Essential Essential Problem 11/09/2011 [place] hypertension Hypertension 12:00:00 ([place] [facility] [place] [facility]) [id number] Diabetes mellitus Diabetes Mellitus Problem 11/09/2011 [place] (disorder) 12:00:00 ([place] [facility]) [id number] 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 12:00:00 ([place] ([place]) [facility]) [id number] Epilepsy (disorder) Epilepsy Problem 11/09/[address] [facility]:00:[facility] [id number] 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 Myocardial Problem 11/09/2011 [place] infarction (disorder) Infarction 12:00:00 ([place] [facility]) [id number] Benign prostatic Benign Prostatic Problem 11/09/2011 [place] hyperplasia Hypertrophy 12:00:00 ([place] ([place]) [facility]) [id number] Essential Essential Problem 11/09/2011 [place] hypertension Hypertension 12:00:00 ([place] [facility]) [id number] Diabetes mellitus Diabetes Mellitus Problem 11/09/2011 [place] (disorder) 12:00:00 ([place] [facility]) [id number] 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 12:00:00 ([place] ([place]order) [facility]) [id number] Epilepsy (disorder) Epilepsy Problem 11/09/[address] 12:00:00 ([place] [facility]) [id number] 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 Myocardial Problem 11/09/2011 [place] infarction (disorder) Infarction 12:00:00 ([place] [facility]) [id number] Benign prostatic Benign Prostatic Problem 11/09/2011 [place] hyperplasia Hypertrophy 12:00:00 ([place]) [facility]) [id number] Essential Essential Problem 11/09/2011 [place] hypertension Hypertension 12:00:00 ([place] [facility]) [id number] Diabetes mellitus Diabetes Mellitus Problem 11/09/2011 [place] (disorder) 12:00:00 ([place] [facility]) [id number] 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 12:00:00 ([place] ([place]order) [facility]) [id number] Epilepsy (disorder) Epilepsy Problem 11/09/[address] 12:00:00 ([place] [facility]) [id number] 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 Myocardial Problem 11/09/2011 [place] infarction (disorder) Infarction 12:00:00 ([place] [facility]) [id number] Benign prostatic Benign Prostatic Problem 11/09/2011 [place] hyperplasia Hypertrophy 12:00:00 ([place]) [facility]) [id number] Essential Essential Problem 11/09/2011 [place] hypertension Hypertension 12:00:00 ([place] [facility]) [id number] Diabetes mellitus Diabetes Mellitus Problem 11/09/2011 [place] (disorder) 12:00:00 ([place] [facility]) [id number] 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 12:00:00 ([place] ([place]) [facility]) [id number] Epilepsy (disorder) Epilepsy Problem 11/09/[address] 12:00:00 ([facility]) [id number] 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 Myocardial Problem 11/09/2011 [place] infarction (disorder) Infarction 12:00:00 ([facility]) [id number] Benign prostatic Benign Prostatic Problem 11/09/2011 [place] hyperplasia Hypertrophy 12:00:00 ([place]) [facility]) [id number] Essential Essential Problem 11/09/2011 [place] hypertension Hypertension 12:00:00 ([place] [facility]) [id number] Diabetes mellitus Diabetes Mellitus Problem 11/09/2011 [place] (disorder) 12:00:00 ([facility]) [id number] 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 12:00:00 ([place] ([place]order) [facility]) [id number] Epilepsy (disorder) Epilepsy Problem 11/09/[address] 12:00:00 ([facility]) [id number] 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 Myocardial Problem 11/09/2011 [place] infarction (disorder) Infarction 12:00:00 ([facility]) [id number] Benign prostatic Benign Prostatic Problem 11/09/2011 [place] hyperplasia Hypertrophy 12:00:00 ([place]) [facility]) [id number] Essential Essential Problem 11/09/2011 [place] hypertension Hypertension 12:00:00 ([place] [facility]) [id number] Diabetes mellitus Diabetes Mellitus Problem 11/09/2011 [place] (disorder) [facility] [id number] 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 12:00:00 ([place] ([place]order) [facility]) [id number] Epilepsy (disorder) Epilepsy Problem 11/09/[address] 12:00:00 ([place] [facility]) [id number] 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 Myocardial Problem 11/09/2011 [place] infarction (disorder) Infarction 12:00:00 ([facility] [place] [facility]) [id number] Benign prostatic Benign Prostatic Problem 11/09/2011 [place] hyperplasia Hypertrophy 12:00:00 ([place]) [facility]) [id number] Essential Essential Problem 11/09/2011 [place] hypertension Hypertension 12:00:00 ([place] [facility]) 87117411 Diabetes mellitus Diabetes Mellitus Problem 11/09/2011 [place] (disorder) [facility] [id number] 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 12:00:00 ([place] ([place]order) [facility]) [id number] Epilepsy (disorder) Epilepsy Problem 11/09/[address] 12:00:00 [facility] [id number] 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 Myocardial Problem 11/09/2011 [place] infarction (disorder) Infarction 12:00:00 ([facility]) [id number] Benign prostatic Benign Prostatic Problem 11/09/2011 [place] hyperplasia Hypertrophy 12:00:00 ([place]) [facility]) [id number] Essential Essential Problem 11/09/2011 [place] hypertension Hypertension 12:00:00 ([place] [facility]) 41387238 Diabetes mellitus Diabetes Mellitus Problem 11/09/2011 [place] (disorder) 12:00:00 ([place] [facility]) [id number] 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 12:00:00 ([place] ([place]order) [facility]) 13355095 Epilepsy (disorder) Epilepsy Problem 11/09/[address] 12:00:[facility] 7770990 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 Myocardial Problem 11/09/2011 [place] infarction (disorder) Infarction 12:00:00 ([place] [facility]) [id number] Benign prostatic Benign Prostatic Problem 11/09/2011 [place] hyperplasia Hypertrophy 12:00:00 ([place] ([place]) [facility]) [id number] Essential Essential Problem 11/09/2011 [place] hypertension Hypertension 12:00:00 ([place] [facility]) [id number] Diabetes mellitus Diabetes Mellitus Problem 11/09/2011 [place] (disorder) 12:00:00 ([place] [facility]) [id number] 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 12:00:00 ([place] ([place]order) [facility]) 69731855 Epilepsy (disorder) Epilepsy Problem 11/09/[address] 12:00:00 ([place] [facility]) [id number] 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 Myocardial Problem 11/09/2011 [place] infarction (disorder) Infarction 12:00:00 ([place] [facility]) [id number] Benign prostatic Benign Prostatic Problem 11/09/2011 [place] hyperplasia Hypertrophy 12:00:00 ([place] [facility]) [id number] Essential Essential Problem 11/09/2011 [place] hypertension Hypertension 12:00:00 ([place] [facility]) 69176946 Diabetes mellitus Diabetes Mellitus Problem 11/09/2011 [place] (disorder) 12:00:00 ([place] [facility]) [id number] 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 12:00:00 ([place] ([place]order) [facility]) 57527007 Epilepsy (disorder) Epilepsy Problem 11/09/[address] 12:00:00 ([place] [facility]) 2887920 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 Myocardial Problem 11/09/2011 [place] infarction (disorder) Infarction 12:00:00 ([place] [facility]) [id number] Benign prostatic Benign Prostatic Problem 11/09/2011 [place] hyperplasia Hypertrophy 12:00:00 ([place] ([place]) [facility]) 14735638 Essential Essential Problem 11/09/2011 [place] hypertension Hypertension 12:00:00 ([place] [facility]) [id number] Diabetes mellitus Diabetes Mellitus Problem 11/09/2011 [place] (disorder) 12:00:00 ([place] [facility]) [id number] 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 12:00:00 ([place] ([place]) [facility]) 83704762 Epilepsy (disorder) Epilepsy Problem 11/09/[address] [facility] [id number] 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 Myocardial Problem 11/09/2011 [place] infarction (disorder) Infarction 12:00:00 ([place] [facility]) [id number] Benign prostatic Benign Prostatic Problem 11/09/2011 [place] hyperplasia Hypertrophy 12:00:00 ([place] ([place]) [facility]) [id number] Essential Essential Problem 11/09/2011 [place] hypertension Hypertension 12:00:00 ([place] [facility]) 14479038 Diabetes mellitus Diabetes Mellitus Problem 11/09/2011 [place] (disorder) 12:00:00 ([place] [facility]) 16817617 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 12:00:00 ([place] ([place]order) [facility]) 99536017 Epilepsy (disorder) Epilepsy Problem 11/09/[address] 12:00:00 ([place] [facility]) 7449504 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 Myocardial Problem 11/09/2011 [place] infarction (disorder) Infarction 12:00:00 ([place] [facility]) [id number] Benign prostatic Benign Prostatic Problem 11/09/2011 [place] hyperplasia Hypertrophy 12:00:00 ([place]) [facility]) 28874675 Essential Essential Problem 11/09/2011 [place] hypertension Hypertension 12:00:00 ([place] [facility]) 84859999 Diabetes mellitus Diabetes Mellitus Problem 11/09/2011 [place] (disorder) 12:00:00 ([place] [facility]) 03480235 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 12:00:00 ([place] ([place]) [facility]) [id number] Epilepsy (disorder) Epilepsy Problem 11/09/[address] [facility] [id number] 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 Myocardial Problem 11/09/2011 [place] infarction (disorder) Infarction 12:00:00 ([facility]) [id number] Benign prostatic Benign Prostatic Problem 11/09/2011 [place] hyperplasia Hypertrophy 12:00:00 ([place] [facility]) 83625242 Essential Essential Problem 11/09/2011 [place] hypertension Hypertension 12:00:00 ([place] [facility]) 19614376 Diabetes mellitus Diabetes Mellitus Problem 11/09/2011 [facility] (disorder) [facility] 79835169 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 12:00:00 ([place] ([place]order) [facility]) [id number] Epilepsy (disorder) Epilepsy Problem 11/09/[address] 12:00:[facility] 1304119 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 Myocardial Problem 11/09/2011 [place] infarction (disorder) Infarction 12:00:00 ([facility]) [id number] Benign prostatic Benign Prostatic Problem 11/09/2011 [place] hyperplasia Hypertrophy 12:00:00 ([place]) [facility]) 69807382 Essential Essential Problem 11/09/2011 [place] hypertension Hypertension 12:00:00 ([place] [facility]) 98760173 Diabetes mellitus Diabetes Mellitus Problem 11/09/2011 [facility] (disorder) 12:[facility] 27497426 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 12:00:00 ([place] ([place]) [facility]) 81385305 Epilepsy (disorder) Epilepsy Problem 11/09/[address] 12:00:[facility] 1830605 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 Myocardial Problem 11/09/2011 [place] infarction (disorder) Infarction 12:00:00 ([place] [facility]) [id number] Benign prostatic Benign Prostatic Problem 11/09/2011 [place] hyperplasia Hypertrophy 12:00:00 ([place]order) [facility]) [id number] Essential Essential Problem 11/09/2011 [place] hypertension Hypertension 12:00:00 ([place] (disorder) [facility]) [id number] Diabetes mellitus Diabetes Mellitus Problem 11/09/2011 [place] (disorder) 12:00:00 ([place] [facility]) [id number] 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 12:00:00 ([place]order) [facility]) [id number] Epilepsy (disorder) Epilepsy Problem 11/09/[address] 12:00:[facility] [id number] 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 Myocardial Problem 11/09/2011 [place] infarction (disorder) Infarction 12:00:00 ([place] [facility]) [id number] Benign prostatic Benign Prostatic Problem 11/09/2011 [place] hyperplasia Hypertrophy 12:00:00 [place] [facility]) [id number] Essential Essential Problem 11/09/2011 [place] hypertension Hypertension 12:00:00 ([place]disorder[place] [facility]) [id number] Diabetes mellitus Diabetes Mellitus Problem 11/09/2011 [place] (disorder) 12:00:00 ([place] [facility]) [id number] 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 12:00:00 ([place] (disorder) [facility]) [id number] Epilepsy (disorder) Epilepsy Problem 11/09/[address] 12:00:00 [facility] [id number] 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 Myocardial Problem 11/09/2011 [place] infarction (disorder) Infarction 12:00:00 ([place] [facility]) [id number] Benign prostatic Benign Prostatic Problem 11/09/2011 [place] hyperplasia Hypertrophy 12:00:00 ([place] [facility]) [id number] Essential Essential Problem 11/09/2011 [place] hypertension Hypertension 12:00:00 ([place] (disorder) [facility]) [id number] Diabetes mellitus Diabetes Mellitus Problem 11/09/2011 [place] (disorder) 12:00:00 ([place] [facility]) [id number] 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 12:00:00 ([place]disorder) [facility]) [id number] Epilepsy (disorder) Epilepsy Problem 11/09/[address] 12:00:00 ([place] [facility]) [id number] 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 Myocardial Problem 11/09/2011 [place] infarction (disorder) Infarction 12:00:00 ([place] [facility]) [id number] Benign prostatic Benign Prostatic Problem 11/09/2011 [place] hyperplasia Hypertrophy 12:00:00 ([place]) [facility]) [id number] Essential Essential Problem 11/09/2011 [place] hypertension Hypertension 12:00:00 ([place]disorder[place] [facility]) [id number] Diabetes mellitus Diabetes Mellitus Problem 11/09/2011 [place] (disorder) 12:00:00 ([place] [facility]) [id number] 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 12:00:00 ([place]order) [facility]) [id number] Epilepsy (disorder) Epilepsy Problem 11/09/[address] 12:00:00 ([place] [facility]) [id number] 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 Myocardial Problem 11/09/2011 [place] infarction (disorder) Infarction 12:00:00 ([place] [facility]) [id number] Benign prostatic Benign Prostatic Problem 11/09/2011 [place] hyperplasia Hypertrophy 12:00:00 ([place] [facility]) [id number] Essential Essential Problem 11/09/2011 [place] hypertension Hypertension 12:00:00 ([place]disorder[place] [facility]) [id number] Diabetes mellitus Diabetes Mellitus Problem 11/09/2011 [place] (disorder) 12:00:[facility] [id number] 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 12:00:00 ([place]order) [facility]) [id number] Epilepsy (disorder) Epilepsy Problem 11/09/[address] 12:00:00 ([facility]) [id number] 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 Myocardial Problem 11/09/2011 [place] infarction (disorder) Infarction 12:00:00 ([facility]) [id number] Benign prostatic Benign Prostatic Problem 11/09/2011 [place] hyperplasia Hypertrophy 12:00:00 ([place] [facility]) [id number] Essential Essential Problem 11/09/2011 [place] hypertension Hypertension 12:00:00 ([place]disorder[place] [facility]) [id number] Diabetes mellitus Diabetes Mellitus Problem 11/09/2011 [place] (disorder) 12:00:00 ([facility]) [id number] 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 12:00:00 ([place]disorder) [facility]) [id number] Epilepsy (disorder) Epilepsy Problem 11/09/[address] 12:00:00 ([facility]) [id number] 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 Myocardial Problem 11/09/2011 [place] infarction (disorder) Infarction 12:00:00 ([facility]) [id number] Benign prostatic Benign Prostatic Problem 11/09/2011 [place] hyperplasia Hypertrophy 12:00:00 ([place] [facility]) [id number] Essential Essential Problem 11/09/2011 [place] hypertension Hypertension 12:00:00 ([place]disorder[place] [facility]) [id number] Diabetes mellitus Diabetes Mellitus Problem 11/09/2011 [place] (disorder) 12:00:00 ([facility]) [id number] Depressive disorder Depression Problem 11/09/[address] (disorder) 12:00:00 ([facility]) [id number] 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 12:00:00 ([place]disorder) [facility]) [id number] Epilepsy (disorder) Epilepsy Problem 11/09/[address] 12:00:00 ([facility] [id number] 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 Myocardial Problem 11/09/2011 [place] infarction (disorder) Infarction 12:00:00 ([facility]) [id number] Benign prostatic Benign Prostatic Problem 11/09/2011 [place] hyperplasia Hypertrophy 12:00:00 ([place]) [facility]) [id number] Essential Essential Problem 11/09/2011 [place] hypertension Hypertension 12:00:00 ([place]disorder) [facility]) [id number] Diabetes mellitus Diabetes Mellitus Problem 11/09/2011 [place] (disorder) 12:00:00 [facility] [id number] 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 12:00:00 ([place]order) [facility]) [id number] Epilepsy (disorder) Epilepsy Problem 11/09/[address] 12:00:00 ([facility]) [id number] 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 Myocardial Problem 11/09/2011 [place] infarction (disorder) Infarction 12:00:00 ([facility]) [id number] Benign prostatic Benign Prostatic Problem 11/09/2011 [place] hyperplasia Hypertrophy 12:00:00 ([place]) [facility]) [id number] Essential Essential Problem 11/09/2011 [place] hypertension Hypertension 12:00:00 ([place]disorder) [facility]) [id number] Diabetes mellitus Diabetes Mellitus Problem 11/09/2011 [place] (disorder) 12:00:00 [facility]) [id number] Depressive disorder Depression Problem 11/09/[address] (disorder) 12:00:00 ([facility]) [id number] 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 12:00:00 ([place]disorder) [facility]) [id number] Epilepsy (disorder) Epilepsy Problem 11/09/[address] 12:00:00 ([place] [facility]) [id number] 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 Myocardial Problem 11/09/2011 [place] infarction (disorder) Infarction 12:00:00 ([facility] [place] [facility]) [id number] Benign prostatic Benign Prostatic Problem 11/09/2011 [place] hyperplasia Hypertrophy 12:00:00 ([place]order) [facility]) [id number] Essential Essential Problem 11/09/2011 [place] hypertension Hypertension 12:00:00 ([place]disorder) [facility]) [id number] Diabetes mellitus Diabetes Mellitus Problem 11/09/2011 [place] (disorder) 12:00:00 ([place] [facility]) [id number] Depressive disorder Depression Problem 11/09/2011 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 12:00:00 ([place]disorder) [facility]) [id number] Epilepsy (disorder) Epilepsy Problem 11/09/[address] 12:00:00 ([place] [facility]) [id number] 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 Myocardial Problem 11/09/2011 [place] infarction (disorder) Infarction 12:00:00 ([facility]) [id number] Benign prostatic Benign Prostatic Problem 11/09/2011 [place] hyperplasia Hypertrophy 12:00:00 ([place]order) [facility]) [id number] Essential Essential Problem 11/09/2011 [place] hypertension Hypertension 12:00:00 ([place]disorder) [facility]) 60413016 Diabetes mellitus Diabetes Mellitus Problem 11/09/2011 [place] (disorder) 12:00:00 ([place] [facility]) [id number] 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 12:00:00 ([place] (disorder) [facility]) [id number] 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 Myocardial Problem 11/09/2011 [place] infarction (disorder) Infarction 12:00:00 ([facility]) [id number] Benign prostatic Benign Prostatic Problem 11/09/2011 [place] hyperplasia Hypertrophy 12:00:00 ([place]) [facility]) [id number] Essential Essential Problem 11/09/2011 [place] hypertension Hypertension 12:00:00 ([place]disorder) [facility]) [id number] Epilepsy (disorder) Epilepsy Problem 11/09/[address] 12:00:00 ([place] [facility]) [id number] Diabetes mellitus Diabetes Mellitus Problem 11/09/2011 [place] (disorder) 12:00:00 ([place] [facility]) [id number] Depressive disorder Depression Problem 11/09/[address] (disorder) 12:00:00 [facility] [id number] 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 12:00:00 ([place] (disorder) [facility]) [id number] 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 Myocardial Problem 11/09/2011 [place] infarction (disorder) Infarction 12:00:00 ([place] [facility]) [id number] Benign prostatic Benign Prostatic Problem 11/09/2011 [place] hyperplasia Hypertrophy 12:00:00 ([place]) [facility]) 56859512 Essential Essential Problem 11/09/2011 [place] hypertension Hypertension 12:00:00 ([place]disorder) [facility]) [id number] Epilepsy (disorder) Epilepsy Problem 11/09/[address] 12:00:00 ([place] [facility]) [id number] Diabetes mellitus Diabetes Mellitus Problem 11/09/2011 [place] (disorder) 12:00:00 ([place] [facility]) [id number] Depressive disorder Depression Problem 11/09/[address] (disorder) 12:00:00 ([place] [facility]) [id number] 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 12:00:00 ([place] (disorder) [facility]) 24994494 Epilepsy (disorder) Epilepsy Problem 11/09/[address] 12:00:00 ([place] [facility]) [id number] 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 Myocardial Problem 11/09/2011 [place] infarction (disorder) Infarction 12:00:00 ([place] [facility]) [id number] Benign prostatic Benign Prostatic Problem 11/09/2011 [place] hyperplasia Hypertrophy 12:00:00 ([place]) [facility]) [id number] Essential Essential Problem 11/09/2011 [place] hypertension Hypertension 12:00:00 ([place]disorder) [facility]) [id number] Diabetes mellitus Diabetes Mellitus Problem 11/09/2011 [facility] (disorder) 12:00:00 ([place] [facility]) [id number] Depressive disorder Depression Problem 11/09/[address] (disorder) 12:00:[facility] [id number] 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 12:00:00 ([place]disorder) [facility]) [id number] 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 Myocardial Problem 11/09/2011 [place] infarction (disorder) Infarction 12:00:00 ([place] [facility]) [id number] Benign prostatic Benign Prostatic Problem 11/09/2011 [place] hyperplasia Hypertrophy 12:00:00 ([place]) [facility]) [id number] Essential Essential Problem 11/09/2011 [place] hypertension Hypertension 12:00:00 ([place]disorder) [facility]) [id number] Epilepsy (disorder) Epilepsy Problem 11/09/[address] 12:00:00 ([place] [facility]) [id number] Diabetes mellitus Diabetes Mellitus Problem 11/09/2011 [place] (disorder) 12:00:00 ([place] [facility]) [id number] Depressive disorder Depression Problem 11/09/[address] (disorder) 12:00:00 ([place] [facility]) [id number] 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 12:00:00 ([place]order) [facility]) [id number] 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 Myocardial Problem 11/09/2011 [place] infarction (disorder) Infarction 12:00:00 ([place] [facility]) [id number] Benign prostatic Benign Prostatic Problem 11/09/2011 [place] hyperplasia Hypertrophy 12:00:00 ([place]) [facility]) [id number] Essential Essential Problem 11/09/2011 [place] hypertension Hypertension 12:00:00 ([place]disorder) [facility]) 76508064 Epilepsy (disorder) Epilepsy Problem 11/09/[address] 12:00:00 ([facility]) [id number] Diabetes mellitus Diabetes Mellitus Problem 11/09/2011 [place] (disorder) 12:00:00 [facility]) [id number] Depressive disorder Depression Problem 11/09/[address] (disorder) 12:00:00 ([facility]) [id number] 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 12:00:00 ([place]disorder) [facility]) [id number] 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 Myocardial Problem 11/09/2011 [place] infarction (disorder) Infarction 12:00:00 ([facility]) [id number] Benign prostatic Benign Prostatic Problem 11/09/2011 [place] hyperplasia Hypertrophy 12:00:00 ([place]) [facility]) [id number] Essential Essential Problem 11/09/2011 [place] hypertension Hypertension 12:00:00 ([place]disorder) [facility]) [id number] Epilepsy (disorder) Epilepsy Problem 11/09/[address] 12:00:00 ([place] [facility]) [id number] Diabetes mellitus Diabetes Mellitus Problem 11/09/2011 [place] (disorder) 12:00:[facility] 56069759 Depressive disorder Depression Problem 11/09/[address] (disorder) 12:00:00 ([facility]) [id number] 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 12:00:00 ([place]order) [facility]) [id number] 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 Myocardial Problem 11/09/2011 [place] infarction (disorder) Infarction 12:00:00 ([place] [facility]) [id number] Benign prostatic Benign Prostatic Problem 11/09/2011 [place] hyperplasia Hypertrophy 12:00:00 ([place] [facility]) 56129005 Essential Essential Problem 11/09/2011 [place] hypertension Hypertension 12:00:00 ([place]order) [facility]) [id number] Epilepsy (disorder) Epilepsy Problem 11/09/[address] 12:00:00 ([facility] [id number] Diabetes mellitus Diabetes Mellitus Problem 11/09/2011 [place] (disorder) 12:00:00 ([facility]) [id number] Depressive disorder Depression Problem 11/09/[address] (disorder) 12:00:00 ([facility]) 58266034 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 12:00:00 ([place]order) [facility]) [id number] 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 Myocardial Problem 11/09/2011 [place] infarction (disorder) Infarction 12:00:00 ([facility]) [id number] Benign prostatic Benign Prostatic Problem 11/09/2011 [place] hyperplasia Hypertrophy 12:00:00 ([place] [facility]) [id number] Essential Essential Problem 11/09/2011 [place] hypertension Hypertension 12:00:00 ([place]disorder) [facility]) 48587340 Epilepsy (disorder) Epilepsy Problem 11/09/[address] 12:00:00 ([facility] [id number] Diabetes mellitus Diabetes Mellitus Problem 11/09/2011 [place] (disorder) 12:00:00 [facility]) 05329774 Depressive disorder Depression Problem 11/09/[address] (disorder) 12:00:00 ([facility]) 67800293 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 12:00:00 ([place]order) [facility]) 7759592 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 Myocardial Problem 11/09/2011 [place] infarction (disorder) Infarction 12:00:00 ([place] [facility]) [id number] Benign prostatic Benign Prostatic Problem 11/09/2011 [place] hyperplasia Hypertrophy 12:00:00 ([place] [facility]) [id number] Essential Essential Problem 11/09/2011 [place] hypertension Hypertension 12:00:00 ([place]disorder) [facility]) 83194037 Epilepsy (disorder) Epilepsy Problem 11/09/[address] 12:00:00 ([facility]) [id number] Diabetes mellitus Diabetes Mellitus Problem 11/09/2011 [place] (disorder) 12:00:00 ([facility]) [id number] Depressive disorder Depression Problem 11/09/[address] (disorder) 12:00:00 ([facility]) 91061801 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 12:00:00 ([place] ([place]order) [facility]) 1934333 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 Myocardial Problem 11/09/2011 [place] infarction (disorder) Infarction 12:00:00 ([facility]) [id number] Benign prostatic Benign Prostatic Problem 11/09/2011 [place] hyperplasia Hypertrophy 12:00:00 ([place] [facility]) 90087843 Essential Essential Problem 11/09/2011 [place] hypertension Hypertension 12:00:00 ([place]order) [facility]) 98601327 Epilepsy (disorder) Epilepsy Problem 11/09/[address] 12:00:00 ([facility]) 49399421 Diabetes mellitus Diabetes Mellitus Problem 11/09/2011 [place] (disorder) 12:00:00 ([facility]) [id number] Depressive disorder Depression Problem 11/09/[address] (disorder) 12:00:00 ([facility]) [id number] 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 12:00:00 ([place] ([place]order) [facility]) 9757832 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 Myocardial Problem 11/09/2011 [place] infarction (disorder) Infarction 12:00:00 ([place] [facility]) [id number] Benign prostatic Benign Prostatic Problem 11/09/2011 [place] hyperplasia Hypertrophy 12:00:00 ([place] [facility]) [id number] Essential Essential Problem 11/09/2011 [place] hypertension Hypertension 12:00:00 ([place]order[place] [facility]) 89776708 Epilepsy (disorder) Epilepsy Problem 11/09/[address] 12:00:00 ([place] [facility]) 12140642 Diabetes mellitus Diabetes Mellitus Problem 11/09/2011 [place] (disorder) 12:00:00 [facility]) 66232187 Depressive disorder Depression Problem 11/09/[address] (disorder) 12:00:00 ([facility]) 89734502 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 12:00:00 ([place]order) [facility]) 5169840 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 Myocardial Problem 11/09/2011 [place] infarction (disorder) Infarction 12:00:00 ([place] [facility]) [id number] Benign prostatic Benign Prostatic Problem 11/09/2011 [place] hyperplasia Hypertrophy 12:00:00 ([place] [facility]) 0450854 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 Myocardial Problem 11/09/2011 [place] infarction (disorder) Infarction 12:00:00 ([place] [facility]) [id number] Benign prostatic Benign Prostatic Problem 11/09/2011 [place] hyperplasia Hypertrophy 12:00:00 ([place]) [facility]) 24465478 Essential Essential Problem 11/09/2011 [place] hypertension Hypertension 12:00:00 ([place]order) [facility]) 27398594 Epilepsy (disorder) Epilepsy Problem 11/09/[address] 12:00:00 ([place] [facility]) 37642771 Diabetes mellitus Diabetes Mellitus Problem 11/09/2011 [place] (disorder) 12:00:00 ([place] [facility]) [id number] Depressive disorder Depression Problem 11/09/[address] (disorder) 12:00:00 ([place] [facility]) [id number] 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 12:00:00 ([place]) [facility]) 1669680 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 Myocardial Problem 11/09/2011 [place] infarction (disorder) Infarction 12:00:00 ([place] [facility]) [id number] Benign prostatic Benign Prostatic Problem 11/09/2011 [place] hyperplasia Hypertrophy 12:00:00 ([place]) [facility]) 32803463 Essential Essential Problem 11/09/2011 [place] hypertension Hypertension 12:00:00 ([place]order) [facility]) 68355399 Epilepsy (disorder) Epilepsy Problem 11/09/[address] 12:00:00 ([facility]) [id number] Diabetes mellitus Diabetes Mellitus Problem 11/09/2011 [place] (disorder) 12:00:00 ([facility]) [id number] Depressive disorder Depression Problem 11/09/[address] (disorder) 12:00:00 ([facility]) [id number] 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 12:00:00 ([place] ([place] [facility]) [id number] 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 Myocardial Problem 11/09/2011 GREE NWAY infarction (disorder) Infarction 12:00:00 ([place] [facility]) [id number] Benign prostatic Benign Prostatic Problem 11/09/2011 [place] hyperplasia Hypertrophy 12:00:00 ([place] [facility]) [id number] Essential Essential Problem 11/09/2011 [place] hypertension Hypertension 12:00:00 ([place]order[place] [facility]) [id number] Epilepsy (disorder) Epilepsy Problem 11/09/[address] 12:00:00 ([facility]) [id number] Diabetes mellitus Diabetes Mellitus Problem 11/09/2011 [place] (disorder) 12:00:00 ([facility]) [id number] Depressive disorder Depression Problem 11/09/[address] (disorder) 12:00:00 ([facility]) [id number] 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 12:00:00 ([place]order) [facility]) [id number] 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 Myocardial Problem 11/09/2011 [place] infarction (disorder) Infarction 12:00:00 ([place] [facility]) [id number] Benign prostatic Benign Prostatic Problem 11/09/2011 [place] hyperplasia Hypertrophy 12:00:00 ([place] [facility]) [id number] Essential Essential Problem 11/09/2011 [place] hypertension Hypertension 12:00:00 ([place]order[place] [facility]) [id number] Epilepsy (disorder) Epilepsy Problem 11/09/[address] 12:00:00 ([facility]) [id number] Diabetes mellitus Diabetes Mellitus Problem 11/09/2011 [place] (disorder) 12:00:00 ([facility]) [id number] Depressive disorder Depression Problem 11/09/[address] (disorder) 12:00:00 ([facility]) [id number] 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 12:00:00 ([place]order) [facility]) [id number] 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 Myocardial Problem 11/09/2011 [place] infarction (disorder) Infarction 12:00:00 ([place] [facility]) [id number] Benign prostatic Benign Prostatic Problem 11/09/2011 [place] hyperplasia Hypertrophy 12:00:00 ([place] [facility]) [id number] Essential Essential Problem 11/09/2011 [place] hypertension Hypertension 12:00:00 ([place]order[place] [facility]) [id number] Epilepsy (disorder) Epilepsy Problem 11/09/[address] 12:00:00 ([facility]) [id number] Diabetes mellitus Diabetes Mellitus Problem 11/09/2011 [place] (disorder) 12:00:00 ([facility]) [id number] Depressive disorder Depression Problem 11/09/[address] (disorder) 12:00:00 ([facility]) [id number] 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 12:00:00 ([place]order[place] [facility]) 7870432 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 Myocardial Problem 11/09/2011 [place] infarction (disorder) [facility]arction [facility]:00:[facility] [id number] Benign prostatic Benign Prostatic Problem 11/09/2011 [place] hyperplasia Hypertrophy 12:00:00 ([place] [facility]) [id number] Essential Essential Problem 11/09/2011 [place] hypertension Hypertension 12:00:00 ([place]order[place] [facility]) [id number] Epilepsy (disorder) Epilepsy Problem 11/09/[address] 12:00:00 ([facility]) [id number] Diabetes mellitus Diabetes Mellitus Problem 11/09/2011 [place] (disorder) 12:00:00 ([facility]) [id number] Depressive disorder Depression Problem 11/09/[address] (disorder) [facility] [id number] 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 12:00:00 ([place]order[place] [facility]) [id number] 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 Myocardial Problem 11/09/2011 [place] infarction (disorder) Infarction 12:00:00 ([place] [facility]) [id number] Benign prostatic Benign Prostatic Problem 11/09/2011 [place] hyperplasia Hypertrophy 12:00:00 ([place]order[place] [facility]) [id number] Essential Essential Problem 11/09/2011 [place] hypertension Hypertension 12:00:00 ([place]order[place] [facility]) [id number] Epilepsy (disorder) Epilepsy Problem 11/09/[address] 12:00:[facility] [id number] Diabetes mellitus Diabetes Mellitus Problem 11/09/2011 [place] (disorder) 12:00:00 ([facility]) 52163637 Depressive disorder Depression Problem 11/09/[address] (disorder) 12:00:[facility] [id number] 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 12:00:00 ([facility] [place] ([place]order) [facility]) 7468398 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 Myocardial Problem 11/09/2011 [place] infarction (disorder) Infarction 12:00:00 [facility] [id number] Benign prostatic Benign Prostatic Problem 11/09/2011 [place] hyperplasia Hypertrophy 12:00:00 ([place] [facility]) [id number] Essential Essential Problem 11/09/2011 [place] hypertension Hypertension 12:00:00 ([facility] [place] non (disorder) [facility]) [id number] Epilepsy (disorder) Epilepsy Problem 11/09/[address] 12:00:00 ([facility]) 1408521 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 Myocardial Problem 11/09/2011 [place] infarction (disorder) Infarction 12:00:00 ([facility]) [id number] Benign prostatic Benign Prostatic Problem 11/09/2011 [place] hyperplasia Hypertrophy 12:00:00 ([place]order) [facility]) [id number] Essential Essential Problem 11/09/2011 [place] hypertension Hypertension 12:00:00 ([facility] [place] non (disorder) [facility]) [id number] Epilepsy (disorder) Epilepsy Problem 11/09/[address] 12:00:00 ([facility]) 24725281 Diabetes mellitus Diabetes Mellitus Problem 11/09/2011 [place] (disorder) 12:00:[facility] [id number] Depressive disorder Depression Problem 11/09/[address] (disorder) 12:00:00 ([facility]) [id number] 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 12:00:00 ([place]order) [facility]) 6806042 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 Myocardial Problem 11/09/2011 [place] infarction (disorder) Infarction 12:00:00 ([facility] [place] [facility]) [id number] Benign prostatic Benign Prostatic Problem 11/09/2011 [place] hyperplasia Hypertrophy 12:00:00 ([place]order) [facility]) [id number] Essential Essential Problem 11/09/2011 [place] hypertension Hypertension 12:00:00 ([place]order[place] [facility]) 82162333 Epilepsy (disorder) Epilepsy Problem 11/09/[address] 12:00:00 ([facility]) 13894403 Diabetes mellitus Diabetes Mellitus Problem 11/09/2011 [place] (disorder) 12:00:[facility] 89303615 Depressive disorder Depression Problem 11/09/[address] (disorder) 12:00:00 ([facility]) 84904202 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 12:00:00 ([place]order[place] [facility]) 97828053 Diabetes mellitus Diabetes Mellitus Problem 11/09/2011 [place] (disorder) 12:00:00 ([facility]) 36967592 Depressive disorder Depression Problem 11/09/[address] (disorder) 12:00:00 [facility] [id number] 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 12:00:00 ([place] [facility]) 4205527 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 Myocardial Problem 11/09/2011 [place] infarction (disorder) Infarction 12:00:00 ([facility] [place] [facility]) [id number] Benign prostatic Benign Prostatic Problem 11/09/2011 [place] hyperplasia Hypertrophy 12:00:00 ([place] ([place]order) [facility]) 43718532 Essential Essential Problem 11/09/2011 [place] hypertension Hypertension 12:00:00 ([place]disorder[place] [facility]) 31747560 Epilepsy (disorder) Epilepsy Problem 11/09/[address] 12:00:00 [facility] [id number] Diabetes mellitus Diabetes Mellitus Problem 11/09/2011 [place] (disorder) 12:00:00 ([facility]) 61610069 Depressive disorder Depression Problem 11/09/[address] (disorder) 12:00:00 [facility] [id number] 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 12:00:00 ([place]order) [facility]) 4175539 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 Myocardial Problem 11/09/2011 [place] infarction (disorder) Infarction 12:00:00 ([place] [facility]) [id number] Benign prostatic Benign Prostatic Problem 11/09/2011 [place] hyperplasia Hypertrophy 12:00:00 ([place] [facility]) 70154656 Essential Essential Problem 11/09/2011 [place] hypertension Hypertension 12:00:00 ([place]order[place] [facility]) 08722184 Epilepsy (disorder) Epilepsy Problem 11/09/[address] 12:00:00 ([facility]) 51875337 Diabetes mellitus Diabetes Mellitus Problem 11/09/2011 [place] (disorder) 12:00:00 ([facility]) 20461646 Depressive disorder Depression Problem 11/09/[address] (disorder) 12:00:[facility] 47900254 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 12:00:00 ([place]order) [facility]) 3223652 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 Myocardial Problem 11/09/2011 [place] infarction (disorder) Infarction 12:00:00 ([place] [facility]) [id number] Benign prostatic Benign Prostatic Problem 11/09/2011 [place] hyperplasia Hypertrophy 12:00:00 ([place] [facility]) 55536985 Essential Essential Problem 11/09/2011 [place] hypertension Hypertension 12:00:00 ([place]order[place] [facility]) 97675365 Epilepsy (disorder) Epilepsy Problem 11/09/[address] 12:00:00 [facility] 98532189 Diabetes mellitus Diabetes Mellitus Problem 11/09/2011 [place] (disorder) 12:00:00 ([facility]) 89859308 Depressive disorder Depression Problem 11/09/[address] (disorder) 12:00:00 ([facility]) 02976613 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 12:00:00 ([place]order) [facility]) 3727975 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 Myocardial Problem 11/09/2011 [place] infarction (disorder) Infarction 12:00:00 ([place] [facility]) [id number] Benign prostatic Benign Prostatic Problem 11/09/2011 [place] hyperplasia Hypertrophy 12:00:00 ([place] [facility]) 97699546 Essential Essential Problem 11/09/2011 [place] hypertension Hypertension 12:00:00 ([place]order[place] [facility]) 05511915 Epilepsy (disorder) Epilepsy Problem 11/09/[address] 12:00:00 ([facility]) 50121237 Diabetes mellitus Diabetes Mellitus Problem 11/09/2011 [place] (disorder) 12:00:00 ([facility]) 41419525 Depressive disorder Depression Problem 11/09/[address] (disorder) 12:00:00 ([facility]) 06804919 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 12:00:00 ([place] [facility]) 15776201 Essential Essential Problem 11/09/2011 [place] hypertension Hypertension 12:00:00 ([place]order[place] [facility]) 77662624 Epilepsy (disorder) Epilepsy Problem 11/09/[address] 12:00:00 ([facility]) 58197998 Diabetes mellitus Diabetes Mellitus Problem 11/09/2011 [place] (disorder) 12:00:00 ([facility]) 32910683 Depressive disorder Depression Problem 11/09/[address] (disorder) [facility] 10120400 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 12:00:00 ([place] [facility]) 8648043 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 Myocardial Problem 11/09/2011 [place] infarction (disorder) Infarction 12:00:00 ([facility]) [id number] Benign prostatic Benign Prostatic Problem 11/09/2011 [place] hyperplasia Hypertrophy 12:00:00 ([place] [facility]) 58494385 Essential Essential Problem 11/09/2011 [place] hypertension Hypertension 12:00:00 ([place] [facility]) 23768291 Epilepsy (disorder) Epilepsy Problem 11/09/[address] 12:00:00 [facility] 07674412 Diabetes mellitus Diabetes Mellitus Problem 11/09/2011 [place] (disorder) 12:00:00 ([facility]) 23690332 Depressive disorder Depression Problem 11/09/[address] (disorder) 12:00:00 ([facility]) 86509611 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 12:00:00 ([place]) [facility]) 6870535 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 Myocardial Problem 11/09/2011 [place] infarction (disorder) Infarction 12:00:00 ([facility]) [id number] Benign prostatic Benign Prostatic Problem 11/09/2011 [place] hyperplasia Hypertrophy 12:00:00 ([place] [facility]) 67253165 Essential Essential Problem 11/09/2011 [place] hypertension Hypertension 12:00:00 ([place] [facility]) 34673333 Epilepsy (disorder) Epilepsy Problem 11/09/[address] 12:00:00 [facility] 73146739 Diabetes mellitus Diabetes Mellitus Problem 11/09/2011 [place] (disorder) 12:00:[facility] 16662828 Depressive disorder Depression Problem 11/09/[address] (disorder) 12:00:00 [facility] 94154859 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 12:00:00 ([place] [facility]) 6137587 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 Myocardial Problem 11/09/2011 JACKELYN OVALLE infarction (disorder) Infarction 12:00:00 ([place] [facility]) [id number] Benign prostatic Benign Prostatic Problem 11/09/2011 [place] hyperplasia Hypertrophy 12:00:00 ([place] [facility]) 62408133 Essential Essential Problem 11/09/2011 [place] hypertension Hypertension 12:00:00 ([place] [facility]) 82190552 Epilepsy (disorder) Epilepsy Problem 11/09/2011 [facility] 12:00:00 ([place] [facility]) 30596280 Diabetes mellitus Diabetes Mellitus Problem 11/09/2011 [place] (disorder) 12:00:00 ([facility] [facility]) 88315118 Depressive disorder Depression Problem 11/09/2011 [facility] (disorder) 12:00:[facility] 58998384 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 12:00:00 ([place] [facility]) F41.1 Generalized anxiety GENERALIZED ANXIETY Diagnosis 020 [facility] disorder DISORDER 10:36:00 [facility] M79.675 Pain in left toe(s) Pain in left toe(s) Diagnosis 019 [facility] M79.674 Pain in right toe(s) Pain in right toe(s) Diagnosis 06/14 [place] 06:21:[facility] B35.1 Tinea unguium Tinea unguium Diagnosis 06/14/2018 [place] 06:21:40 ([facility]) E11.40 Type 2 diabetes Type 2 diabetes Diagnosis 06/14/2018 JACKELYN OVALLE mellitus with mellitus with 06:21:40 ([place] diabetic neuropathy, diabetic neuropathy, PM ES T Neighborhood unspecified [facility]) Diagnosis NEXTGEN ([facility]) Diagnosis [facility] ([facility]) Diagnosis [facility] ([facility]) Diagnosis [facility] ([facility]) Diagnosis [facility] ([facility]) Surgeries/Procedures Procedure Description Date Indications Data Source(s) OFFICE/OUTPATIENT VISIT, NEX TGEN ([facility] EST 0 [facility] 12:00:00 Center) AM EDT - 0 12:00:00 AM EDT OFFICE/OUTPATIENT VISIT, NEX TGEN ([facility] EST 0 [facility] 12:00:00 [place]) AM EDT - 0 12:00:00 AM EDT [facility] Wrap Visit [place] ([facility] visit, Established Patient 0 [place] established patient; a 12:00:00 [facility] [place] [facility] ceuu-kg-abea encounter (one-on-one) between an established patient and a fqhc practitioner during which time one or more fqhc services are rendered and includes a typical bundle of medicare-covered services that would be furnished dielectric testing machine operator to a patient receiving a fqhc visit FINGER STICK BLOOD GLUCOSE FINGER STICK BLOOD [place] ([facility] GLUCOSE 0 [place] 12:00:00 [facility]) OFFICE/OUTPATIENT VISIT, NEX TGEN ([facility] 0 [facility] 12:00:00 [place]) AM EDT - 0 12:00:00 AM EDT Noncompliance with therapy Noncompliance with [place] ([facility] therapy 0 [place] 12:00:00 [facility]) No prior serious illness No prior serious [place] ([facility] illness 0 [place] 12:00:00 [facility]) [facility] [place] ([facility] (fq) visit, Established Patient 0 [place] established patient; a 12:00:00 [facility] [place] [facility] zfzb-zq-jnje encounter (one-on-one) between an established patient and a fq practitioner during which time one or more fq services are rendered and includes a typical bundle of medicare-covered services that would be furnished dielectric testing machine operator to a patient receiving a fqhc visit Sign language or oral Sign language or GR [place] ([facility] interpretive services, per Oral Interpretation 0 [place] 15 minutes per 15 Minutes 12:00:00 [facility]) Bmi documented outside BMI OUTSIDE NORMAL [place] ([facility] normal parameters, no RANGE - NO F/U PLAN 0 [place] follow-up plan documented, 12:00:00 N eighborhood no reason given [facility]) FINGER STICK BLOOD GLUCOSE FINGER STICK BLOOD [place] ([facility] GLUCOSE 0 [place] 12:00:00 [facility]) History of hypertension History of GREE NWLINDA ([facility] hypertension 0 [place] 12:00:00 [facility]) History of diabetes History of diabetes G REENWAY ([facility] mellitus mellitus 0 [place] 12:00:00 [facility]) DEBRIDEMENT NAILS SIX OR DEBRIDEMENT NAILS [place] ([facility] MORE (Two Class B Findings) SIX OR MORE (Two 0 [place] Class B Findings) 12:00:00 [facility]) [facility] Wrap Visit [place] ([facility] ([facility]) visit, Established Patient 0 [place] established patient; a 12:00:00 [place] [facility]) fsga-uw-lzfx encounter (one-on-one) between an established patient and a fqhc practitioner during which time one or more fq services are rendered and includes a typical bundle of medicare-covered services that would be furnished dielectric testing machine operator to a patient receiving a fqhc visit [id number] [facility] ([facility] 0 [place] 12:00:00 [facility]) PSA (PROSTATE SPECIFIC A PSA (PROSTATE [place] ([facility] SPECIFIC A 0 [place] 12:00:00 [facility]) HEMOGLOBIN A1C HEMOGLOBIN A1C [place] ([facility] 0 [place] 12:00:00 [facility]) IMMUNOELECTROPHORESIS OTHER OTHER FLUIDS [place] ([facility] FLUIDS CONCENTRATION (URINE..) WITH 0 [place] CONCENTRATION 12:00:00 [facility]) LIPID PANEL LIPID PANEL [place] ([place] 0 [place] 12:00:00 [facility]) METABOLIC PANEL COMPREHE METABOLIC PANEL [place] ([place] COMPREHE 0 [place] 12:00:00 [facility]) TSH-THYROID STIMULATING TSH-THYROID JACKELYN NWLINDA ([place] STIMULATING 0 [place] 12:00:00 [facility]) Injection, insulin, per 5 Insulin (Injection) [place] ([place] units 0 [place] 12:00:00 [facility]) FINGER STICK BLOOD GLUCOSE FINGER STICK BLOOD [place] ([place] GLUCOSE 0 [place] 12:00:00 [facility]) [facility] Wrap Visit [place] ([facility] ([facility]hc) visit, Established Patient 0 [place] established patient; a 12:00:00 [facility] [place] [facility]) xcfu-zi-tgek encounter (one-on-one) between an established [facility] and a [facility] practitioner during which time one or more [facility] services are rendered and includes a typical bundle of medicare-covered services that would be furnished dielectric testing machine operator to a patient receiving a [facility] visit Injection, insulin, per 5 Insulin (Injection) IRVING ([facility] units 0 [place] 12:00:00 [facility]) FINGER STICK BLOOD GLUCOSE FINGER STICK BLOOD IRVING ([facility] GLUCOSE 0 Fernando 12:00:00 [facility]) OFFICE/OUTPATIENT VISIT, NEX TGEN ([address] 12:00:00 [place]) AM EDT - 0 12:00:00 EDT History of hypertension History of JACKELYN OVALLE ([facility] hypertension 0 Fernando 12:00:00 [facility]) History of diabetes History of diabetes Cassidy LEA ([facility] mellitus mellitus 0 Fernando 12:00:00 [facility]) DEBRIDEMENT NAILS SIX OR DEBRIDEMENT NAILS IR[place] ([facility] MORE (Two Class B Findings) SIX OR MORE (Two 0 Fernando Class B Findings) 12:00:00 [facility]) [facility] Wrap Visit IRVING ([facility] visit, Established Patient 0 Fernando established patient; a 12:00:00 [facility] uvxy-rl-nctj encounter (one-on-one) between an established patient and a fqhc practitioner during which time one or more fq services are rendered and includes a typical bundle of medicare-covered services that would be furnished dielectric testing machine operator to a patient receiving a fq visit DUP-SCAN XTR VEINS COMPLETE Scan Extremity Veins IRVING ([facility] BILATERAL STUDY Complete Bilateral 0 Fernando ULTRASOUND 12:00:00 [facility]) History of hypertension History of JACKELYN OVALLE ([facility] hypertension 0 Fernando 12:00:00 [facility]) History of diabetes History of diabetes Cassidy LEA ([facility] mellitus mellitus 0 Fernando 12:00:00 [facility]) [facility] Wrap Visit IRVING ([facility] visit, Established Patient 0 Fernando established patient; a 12:00:00 [facility] [place]) fcup-gg-zvya encounter (one-on-one) between an established patient and a fqhc practitioner during which time one or more fq services are rendered and includes a typical bundle of medicare-covered services that would be furnished dielectric testing machine operator to a patient receiving a fq visit Non-prescription drugs Unclassified [facility] ([facility] Non-Prescription 0 Fernando Drug 12:00:00 [facility]) Administration of oral, ADMIN OF ORAL OR IM IRVING ([facility] intramuscular and/or MEDS 0 Fernando subcutaneous medication by 12:00:00 [facility]) agency/professional, per visit DEBRIDEMENT NAILS SIX OR DEBRIDEMENT NAILS IRVING ([facility] MORE (Two Class B Findings) SIX OR MORE (Two 0 Fernando Class B Findings) 12:00:00 [facility]) FINGER STICK BLOOD GLUCOSE FINGER STICK BLOOD IRVING ([facility] GLUCOSE 0 Fernando 12:00:00 [facility]) [facility] Wrap Visit IRVING ([facility] visit, Established Patient 0 Fernando established patient; a 12:00:00 [facility]) wgfs-ev-sqnd encounter (one-on-one) between an established patient and a fqhc practitioner during which time one or more fqhc services are rendered and includes a typical bundle of medicare-covered services that would be furnished dielectric testing machine operator to a patient receiving a fqhc visit OFFICE/OUTPATIENT VISIT, NEX TGEN ([address] 12:00:00 [place]) AM EDT - 0 12:00:00 [facility] Wrap Visit IRVING ([facility] visit, Established Patient 0 Fernando established patient; a 12:00:00 [facility]) eaif-hq-baaf encounter (one-on-one) between an established patient and a fqhc practitioner during which time one or more fqhc services are rendered and includes a typical bundle of medicare-covered services that would be furnished dielectric testing machine operator to a patient receiving a fq visit Administration of oral, ADMIN OF ORAL OR IM IRVING ([facility] intramuscular and/or MEDS 0 Fernando subcutaneous medication by 12:00:[address] [facility]) agency/professional, per visit FINGER STICK BLOOD GLUCOSE FINGER STICK BLOOD IRVING ([facility] GLUCOSE [address] 12:00:00 [facility]) Injection, insulin, per 5 Insulin (Injection) IRVING ([facility] units 0 Fernando 12:00:00 [facility]) Psychotherapy (30 Mins) W/ N EXTGEN ([facility] E&M 0 [facility] 12:00:00 [place]) AM EST - 0 12:00:00 AM EST OFFICE/OUTPATIENT VISIT, NEX TGEN ([facility] EST [address] [place] [address] 12:00:00 [place]) AM EST - 0 12:00:00 AM EST Individual Psychotherapy NEX TGEN ([facility] (30 Min) [address] [place] [address] 12:00:00 [place]) AM EST - 0 12:00:00 AM EST No recent change in medical No recent change in IRVING ([facility] history medical history 0 Fernando 12:00:00 [facility]) FINGER STICK BLOOD GLUCOSE FINGER STICK BLOOD IRVING ([facility] GLUCOSE 0 Fernando 12:00:00 [facility]) [facility] Wrap Visit IRVING ([facility] visit, Established Patient 0 Fernando established patient; a 12:00:00 [facility] [place]) wdaq-wq-pubq encounter (one-on-one) between an established patient and a fqhc practitioner during which time one or more fqhc services are rendered and includes a typical bundle of medicare-covered services that would be furnished dielectric testing machine operator to a patient receiving a fqhc visit [facility] Wrap Visit IRVING ([facility] visit, Established Patient 0 Fernando established patient; a 12:00:00 [facility] [place] [facility]) rveu-du-eatv encounter (one-on-one) between an established patient and a fqhc practitioner during which time one or more fqhc services are rendered and includes a typical bundle of medicare-covered services that would be furnished dielectric testing machine operator to a patient receiving a fqhc visit Psychotherapy (30 Mins) W N EXTGEN ([facility] E&M 0 [facility] 12:00:00 Center) AM EST - 0 12:00:00 AM EST OFFICE/OUTPATIENT VISIT, NEX TGEN ([facility] 0 [facility] 12:00:00 Center) AM EST - 0 12:00:00 AM EST Individual Psychotherapy NEX TGEN ([facility] (30 Min) 0 [facility] 12:00:00 Center) AM EST - 0 12:00:00 AM EST Psychotherapy (30 Mins) W N EXTGEN ([facility] 9 [facility] 12:00:00 Center) AM EST - 9 12:00:00 AM EST OFFICE/OUTPATIENT VISIT, NEX TGEN ([facility] 9 [facility] 12:00:00 Center) AM EST - 9 12:00:00 AM EST Individual Psychotherapy NEX TGEN ([facility] (30 Min) [address] [place] [address] 12:00:00 [place]) AM EST - 9 12:00:00 AM EST [id number] [facility] ([place] [address] Fernando 12:00:00 [facility]) TSH-THYROID STIMULATING TSH-THYROID GREE NWAY ([facility] STIMULATING Fernando 12:00:00 [facility]) METABOLIC PANEL COMPREHE METABOLIC PANEL IRVING ([facility] COMPREHE Fernando 12:00:00 [facility]) [facility] Wrap Visit IRVING ([facility] visit, Established Patient 9 Fernando established patient; a 12:00:00 [facility] [place] [facility]) darv-fp-ymmc encounter (one-on-one) between an established patient and a fqhc practitioner during which time one or more fqhc services are rendered and includes a typical bundle of medicare-covered services that would be furnished dielectric testing machine operator to a patient receiving a fq visit Bmi documented outside BMI OUTSIDE NORMAL IRVING ([facility] normal parameters, no RANGE - NO F/U PLAN [address] [place] [address] follow-up plan documented, 12:00:00 N [facility] no reason given [facility] visit, Established Patient 9 Fernando established patient; a 12:00:00 [facility] [place]) vxbt-nl-glnw encounter (one-on-one) between an established patient and a fq practitioner during which time one or more fq services are rendered and includes a typical bundle of medicare-covered services that would be furnished dielectric testing machine operator to a patient receiving a fq visit FINGER STICK BLOOD GLUCOSE FINGER STICK BLOOD IRVING ([facility] GLUCOSE 9 [address] 12:00:00 [facility]) Psychotherapy (30 Mins) W N EXTGEN ([facility] E&M [address] [place] [address] 12:00:00 [place]) AM EST - 9 12:00:00 AM EST OFFICE/OUTPATIENT VISIT, NEX TGEN ([address] 12:00:00 Center) AM EST - 9 12:00:00 [facility]HC Wrap Visit IRVING ([facility] visit, Established Patient 9 Fernando established patient; a 12:00:00 [facility] [place] medically-necessary, [facility]) rdfv-sb-onrx encounter (one-on-one) between an established patient and a fqhc practitioner during which time one or more fqhc services are rendered and includes a typical bundle of medicare-covered services that would be furnished dielectric testing machine operator to a patient receiving a fqhc visit Bmi is documented above BMI > NORMAL BASILIO STEPHENABELARDO ([facility] normal parameters and a DOCUMENTED W F/U 9 Fernando follow-up plan is PLAN 12:00:00 [place] [facility] documented [facility]) [facility] Wrap Visit RADHA ([facility] visit, Established Patient 9 Fernando established patient; a 12:00:00 [facility] [place] medically-necessary, [facility]) qesg-ji-uuqi encounter (one-on-one) between an established patient and a fqhc practitioner during which time one or more fqhc services are rendered and includes a typical bundle of medicare-covered services that would be furnished dielectric testing machine operator to a patient receiving a fqhc visit FINGER STICK BLOOD GLUCOSE FINGER STICK BLOOD RADHA ([facility] GLUCOSE 9 Fernando 12:00:00 [facility]) Psychotherapy (30 Mins) W N EXTGEN ([facility] E&[address] 12:00:00 Center) AM EDT - 9 12:00:00 AM EDT OFFICE/OUTPATIENT VISIT, NEX TGEN ([address] 12:00:00 [place]) AM EDT - 9 12:00:00 AM EDT Psychotherapy (30 Mins) W N EXTGEN ([facility] E&[address] 12:00:00 Center) AM EDT - 9 12:00:00 AM EDT OFFICE/OUTPATIENT VISIT, NEX TGEN ([facility] EST [address] [place] [address] 12:00:00 Center) AM EDT - 9 12:00:00 AM EDT Individual Psychotherapy NEX TGEN ([facility] (30 Min) [address] [place] [address] 12:00:00 Center) AM EDT - 9 12:00:00 AM EDT No prior serious illness No prior serious RADHA ([facility] illness 9 Fernando 12:00:00 [facility]) DEBRIDEMENT NAILS SIX OR DEBRIDEMENT NAILS RADHA ([facility] MORE (Two Class B Findings) SIX OR MORE (Two [address] [place] [address] Class B Findings) 12:00:00 [facility]) Bmi is documented above BMI > NORMAL BASILIO MITCHELLWAY ([facility] normal parameters and a DOCUMENTED W F/U 9 Fernando follow-up plan is PLAN 12:00:00 [facility] documented [facility]) [facility] visit, Established Patient 9 Fernando established patient; a 12:00:00 [facility] [place] [facility]) sdvc-ma-iktr encounter (one-on-one) between an established patient and a fq practitioner during which time one or more fqhc services are rendered and includes a typical bundle of medicare-covered services that would be furnished dielectric testing machine operator to a patient receiving a fq visit Sign language or oral Sign language or GR EENWAY ([facility] interpretive services, per Oral Interpretation Fernando 15 minutes per 15 Minutes 12:00:00 [facility]) FINGER STICK BLOOD GLUCOSE FINGER STICK BLOOD RADHA ([facility] GLUCOSE 9 Fernando 12:00:00 [facility]) [facility] visit, Established Patient 9 Fernando established patient; a 12:00:00 [facility] [place]) prrh-nz-fmqk encounter (one-on-one) between an established patient and a fq practitioner during which time one or more fq services are rendered and includes a typical bundle of medicare-covered services that would be furnished dielectric testing machine operator to a patient receiving a fq visit History of hypertension History of JACKELYN NAVEEDLINDA ([facility] hypertension 9 Fernando 12:00:00 [facility]) History of diabetes History of diabetes Cassidy LEA ([facility] mellitus mellitus 9 Fernando 12:00:00 [facility]) Psychotherapy (30 Mins) W N EXTGEN ([facility] E&M [address] [place] [address] 12:00:00 [place]) AM EDT - 9 12:00:00 AM EDT OFFICE/OUTPATIENT VISIT, NEX TGEN ([facility] EST [address] [place] [address] 12:00:00 [place]) EDT - 9 12:00:00 AM EDT Individual Psychotherapy NEX TGEN ([facility] (30 Min) [address] [place] [address] 12:00:00 [place]) EDT - 9 12:00:00 AM EDT No prior serious illness No prior serious RADHA ([facility] illness 9 Fernando 12:00:00 [facility]) FINGER STICK BLOOD GLUCOSE FINGER STICK BLOOD RADHA ([facility] GLUCOSE 9 Fernando 12:00:00 [facility]) Bmi is documented above BMI > NORMAL BASILIO AGUILAR ([facility] normal parameters and a DOCUMENTED W F/U 9 Fernando follow-up plan is PLAN 12:00:00 [facility]) Sign language or oral Sign language or GR GILLES ([facility] interpretive services, per Oral Interpretation 15 minutes per 15 Minutes 12:00:00 [facility]) [facility] Wrap Visit RADHA ([facility] ([facility]) visit, Established Patient 9 Fernando established patient; a 12:00:00 [facility] [place] [facility]) vplb-wy-qfmq encounter (one-on-one) between an established patient and a fqhc practitioner during which time one or more fq services are rendered and includes a typical bundle of medicare-covered services that would be furnished dielectric testing machine operator to a patient receiving a fq visit Psychotherapy (30 Mins) N EXTGEN ([facility] E&M [address] [place] [address] 12:00:00 Center) AM EDT - 9 12:00:00 AM EDT OFFICE/OUTPATIENT VISIT, NEX TGEN ([facility] [address] [place] [address] 12:00:00 Center) AM EDT - 9 12:00:00 AM EDT Individual Psychotherapy NEX TGEN ([facility] (30 Min) [address] [place] [address] 12:00:00 Center) AM EDT - 9 12:00:00 AM EDT HEMOGLOBIN A1C HEMOGLOBIN A1C RADHA ([facility] 9 [place] 12:00:00 [facility]) METABOLIC PANEL COMPREHE METABOLIC PANEL RADHA ([facility] COMPREHE 9 Fernando 12:00:00 [facility]) IMMUNOELECTROPHORESIS OTHER OTHER FLUIDS RADHA ([facility] FLUIDS CONCENTRATION (URINE..) WITH 9 Verno n CONCENTRATION 12:00:00 [facility]) LIPID PANEL LIPID PANEL RADHA ([facility] 9 Fernando 12:00:00 [facility]) TSH-THYROID STIMULATING TSH-THYROID GREE NWAY ([facility] STIMULATING 9 Fernando 12:00:00 [facility]) LIPID PANEL LIPID PANEL RADHA ([facility] 9 Fernando 12:00:00 [facility]) METABOLIC PANEL COMPREHE METABOLIC PANEL RADHA ([facility] COMPREHE 9 Fernando 12:00:00 [facility]) TSH-THYROID STIMULATING TSH-THYROID GREE NWAY ([facility] STIMULATING 9 Fernando 12:00:00 [facility]) HEMOGLOBIN A1C HEMOGLOBIN A1C RADHA ([facility] 9 Fernando 12:00:00 [facility]) IMMUNOELECTROPHORESIS OTHER OTHER FLUIDS RADHA ([facility] FLUIDS CONCENTRATION (URINE..) WITH 9 Verno n CONCENTRATION 12:00:00 [facility]) Injection, insulin, per 5 Insulin (Injection) RADHA ([facility] units 9 Fernando 12:00:00 [facility]) [facility] Wrap Visit RADHA ([facility] visit, Established Patient 9 Fernando established patient; a 12:00:00 [facility] [place] [facility]) npzr-qo-nbns encounter (one-on-one) between an established patient and a [facility] practitioner during which time one or more [facility] services are rendered and includes a typical bundle of medicare-covered services that would be furnished dielectric testing machine operator to a patient receiving a [facility] visit Administration of oral, ADMIN OF ORAL OR IM IRVING ([facility] intramuscular and/or MEDS 9 Fernando subcutaneous medication by 12:00:00 [facility]) agency/professional, per visit FINGER STICK BLOOD GLUCOSE FINGER STICK BLOOD IRVING ([facility] GLUCOSE 9 Fernando 12:00:00 [facility]) Psychotherapy (30 Mins) W N EXTGEN ([facility] E&[address] 12:00:00 [place]) EDT - 9 12:00:00 AM EDT OFFICE/OUTPATIENT VISIT, NEX TGEN ([address] 12:00:00 [place]) EDT - 9 12:00:00 AM EDT No prior serious illness No prior serious IRVING ([facility] illness 9 Fernando 12:00:00 [facility]) Bmi is documented above BMI > NORMAL BASILIO AGUILAR ([facility] normal parameters and a DOCUMENTED W F/U 9 Fernando follow-up plan is PLAN 12:00:00 [facility] [facility]) FINGER STICK BLOOD GLUCOSE FINGER STICK BLOOD IRVING ([facility] GLUCOSE 9 Fernando 12:00:00 [facility]) Injection, insulin, per 5 Insulin (Injection) IRVING ([facility] units 9 Fernando 12:00:00 [facility]) Administration of oral, ADMIN OF ORAL OR IM IRVING ([facility] intramuscular and/or MEDS 9 Fernando subcutaneous medication by 12:00:00 [facility]) agency/professional, per visit [facility] Wrap Visit RADHA ([facility] visit, Established Patient 9 Fernando established patient; a 12:00:00 [facility]) wlwf-jf-okah encounter (one-on-one) between an established patient and a fqhc practitioner during which time one or more fqhc services are rendered and includes a typical bundle of medicare-covered services that would be furnished dielectric testing machine operator to a patient receiving a fqhc visit Sign language or oral Sign language or GR EENABELARDO ([facility] interpretive services, per Oral Interpretation Fernando 15 minutes per 15 Minutes 12:00:00 [facility]) Psychotherapy (30 Mins) W/ N EXTGEN ([facility] E&[address] 12:00:00 [place]) EDT - 9 12:00:00 AM EDT OFFICE/OUTPATIENT VISIT, NEX TGEN ([address] 12:00:00 [place]) EDT - 9 12:00:00 AM EDT URINALYSIS MICROSCOPIC [facility]ALYSIS [facility] ([facility] MICROSCOPIC 9 Fernando 12:00:00 [facility]) URINE C AND S URINE C AND S IRVING ([facility] 9 Fernando 12:00:00 [facility]) EKG EKG RADHA ([facility] 9 Fernando 12:00:00 [facility]) [facility] Wrap Visit RADHA ([facility] visit, Established Patient 9 Fernando established patient; a 12:00:00 [facility] [place]) utws-fv-bobt encounter (one-on-one) between an established patient and a fqhc practitioner during which time one or more fqhc services are rendered and includes a typical bundle of medicare-covered services that would be furnished dielectric testing machine operator to a patient receiving a fqhc visit Bmi documented outside BMI OUTSIDE NORMAL RADHA ([facility] normal parameters, no RANGE - NO F/U PLAN 9 Fernando follow-up plan documented, 12:00:00 N [place]ighborhood no reason given [facility] Giuliana madie) Sign language or oral Translation by JACKELYN OVALLE ([facility] interpretive services, per Inhouse Staff 9 Fernando 15 minutes 12:00:00 [facility]) Bmi documented outside BMI OUTSIDE NORMAL IRVING ([facility] normal parameters, no RANGE - NO F/U PLAN 9 Fernando follow-up plan documented, 12:00:00 N [place] [facility] Sign language or oral Translation by JACKELYN OVALLE ([facility] interpretive services, per Inhouse Staff 9 Fernando 15 minutes 12:00:00 [facility]) PSA (PROSTATE SPECIFIC A PSA (PROSTATE GR EENWAY ([facility] SPECIFIC A 9 Fernando 12:00:00 [facility]) LIPID PANEL LIPID PANEL IRVING ([facility] 9 Fernando 12:00:00 [facility]) CULTURE FNGI MOLD/YEAST OTHER SOURCE (EXCEPT IRVING ([facility] PRSMPTV OTH XCPT BLOOD BLOOD) 9 Verno n 12:00:00 [facility]) URINALYSIS MICROSCOPIC URINALYSIS [facility] ([facility] MICROSCOPIC 9 Fernando 12:00:00 [facility]) HEMOGLOBIN A1C HEMOGLOBIN A1C IRVING ([facility] 9 Fernando 12:00:00 [facility]) HEPATITIS C ANTIBODY HEPATITIS C ANTIBODY IRVING ([facility] 9 Fernando 12:00:00 [facility]) METABOLIC PANEL COMPREHE METABOLIC PANEL IRVING ([facility] COMPREHE 9 Fernando 12:00:00 [facility]) DEBRIDEMENT NAILS SIX OR DEBRIDEMENT NAILS IRVING ([facility] MORE (Two Class B Findings) SIX OR MORE (Two 9 Fernando Class B Findings) 12:00:00 [facility]) TSH-THYROID STIMULATING TSH-THYROID JACKELYN OVALLE ([facility] STIMULATING 9 Fernando 12:00:00 [facility]) [id number] [facility] ([facility] 9 Fernando 12:00:00 [facility]) STOOL OCCULT BLOOD STOOL OCCULT BLOOD GRE ENWAY ([facility] 9 Fernando 12:00:00 [facility]) HEPATITIS B CORE ANTIBODY HEPATITIS B CORE [place] ([facility] (HBcAb); TOTAL ANTIBODY ([facility]cAb); 9 Fernando TOTAL 12:00:00 [facility]) HEPATITIS B SURFACE HEPATITIS B SURFACE [facility] ([facility] ANTIBODY (HBsAb) ANTIBODY (HBsAb) 9 Fernando 12:00:00 [facility]) HEPATITIS B SURFACE AG HEPATITIS B SURFACE [place] ([facility] AG 9 Fernando 12:00:00 [facility]) History of [facility] hypertension 9 Fernando 12:00:00 [facility]) History of diabetes History of diabetes [facility] ([facility] mellitus mellitus 9 Fernando 12:00:00 [facility]) TSH-THYROID STIMULATING TSH-THYROID [facility] NW ([facility] STIMULATING 9 Fernando 12:00:00 [facility]) METABOLIC PANEL COMPREHE METABOLIC PANEL [place] ([facility] COMPREHE 9 Fernando 12:00:00 [facility]) LIPID PANEL LIPID PANEL [place] ([facility] 9 Fernando 12:00:00 [facility]) [id number] [facility] ([facility] 9 Fernando 12:00:00 [facility]) CULTURE FNGI MOLD/YEAST OTHER SOURCE (EXCEPT [place] ([facility] PRSMPTV OTH XCPT BLOOD BLOOD) 9 Verno n 12:00:00 [facility]) URINALYSIS MICROSCOPIC URINALYSIS [facility] ([facility] MICROSCOPIC 9 Fernando 12:00:00 [facility]) HEMOGLOBIN A1C HEMOGLOBIN A1C RADHA ([facility] 9 Fernando 12:00:00 [facility]) STOOL OCCULT BLOOD STOOL OCCULT BLOOD GRE ENWAY ([facility] 9 Fernando 12:00:00 [facility]) PSA (PROSTATE SPECIFIC A PSA (PROSTATE GR EENWAY ([facility] SPECIFIC A 9 Fernando 12:00:00 [facility]) HEPATITIS C ANTIBODY HEPATITIS C ANTIBODY RADHA ([facility] 9 [place] 12:00:00 [facility]) HEPATITIS B SURFACE AG HEPATITIS B SURFACE RADHA ([facility] AG 9 Fernando 12:00:00 [facility]) HEPATITIS B SURFACE [facility] ([facility] ANTIBODY (HBs[facility]) ANTIBODY (HBsAb) 9 Fernando 12:00:00 [facility]) HEPATITIS B CORE ANTIBODY HEPATITIS B CORE [place] ([facility] ([facility]); TOTAL ANTIBODY ([facility]); 9 Fernando TOTAL 12:00:00 [facility]) Psychotherapy (30 Mins) W/ N EXTGEN ([facility] E&[address] 12:00:00 [place]) EDT - 9 12:00:00 AM EDT OFFICE/OUTPATIENT VISIT, NEX TGEN ([address] 12:00:00 [place]) EDT - 9 12:00:00 AM EDT No prior serious illness No prior serious RADHA ([facility] illness 9 [place] 12:00:00 [facility]) STOOL OCCULT BLOOD [facility]LOOD [facility] 9 [place] 12:00:00 [facility]) Administration of oral, ADMIN OF ORAL OR IM [place] ([facility] intramuscular and/or MEDS 9 [place] subcutaneous medication by 12:00:00 [facility]) agency/professional, per visit [facility] FQHC Wrap Visit [place] ([facility] (fqhc) visit, Established Patient 9 Fernando established patient; a 12:00:00 [facility] puku-su-nxnu encounter (one-on-one) between an established patient and a fqhc practitioner during which time one or more fq services are rendered and includes a typical bundle of medicare-covered services that would be furnished dielectric testing machine operator to a patient receiving a fq visit FERRITIN FERRITIN RADHA ([facility] 9 [place] 12:00:00 [facility]) IRON BINDING IRON BINDING RADHA ([facility] 9 [place] 12:00:00 [facility]) IRON IRON RADHA ([facility] 9 [place] 12:00:00 [facility]) Bmi documented outside BMI OUTSIDE NORMAL RADHA ([facility] normal parameters, no RANGE - NO F/U PLAN 9 Fernando follow-up plan documented, 12:00:00 N eighborhood no reason given AM [facility]) Sign language or oral Sign language or GR EENWAY ([facility] interpretive services, per Oral Interpretation 9 Fernando 15 minutes per 15 Minutes 12:00:00 [facility]) PSA (PROSTATE SPECIFIC A PSA (PROSTATE GR EENWAY ([facility] SPECIFIC A 9 Fernando 12:00:00 [facility]) LIPID PANEL LIPID PANEL [place] ([facility] 9 Fernando 12:00:00 [facility]) TSH-THYROID STIMULATING TSH-THYROID GREE NWAY ([facility] STIMULATING 9 Fernando 12:00:00 [facility]) IMMUNOELECTROPHORESIS OTHER OTHER FLUIDS [place] ([facility] FLUIDS CONCENTRATION (URINE..) WITH 9 Verno n CONCENTRATION 12:00:00 [facility]) HEMOGLOBIN A1C HEMOGLOBIN A1C [place] ([facility] 9 Fernando 12:00:00 [facility]) FINGER STICK BLOOD GLUCOSE FINGER STICK BLOOD [place] ([facility] GLUCOSE 9 Fernando 12:00:00 [facility]) Injection, insulin, per 5 Insulin (Injection) [place] ([facility] units 9 Fernando 12:00:00 [facility]) Bmi documented outside BMI OUTSIDE NORMAL [place] ([facility] normal parameters, no RANGE - NO F/U PLAN 9 Fernando follow-up plan documented, 12:00:00 N eighborhood no reason given AM [facility]) Sign language or oral Sign language or GR EENWAY ([facility] interpretive services, per Oral Interpretation 9 Fernando 15 minutes per 15 Minutes 12:00:00 [facility]) Administration of oral, ADMIN OF ORAL OR IM [place] ([facility] intramuscular and/or MEDS 9 Fernando subcutaneous medication by 12:00:00 [facility]) agency/professional, per visit Injection, insulin, per 5 Insulin (Injection) RADHA ([facility] units 9 [place] 12:00:00 [facility]) [facility] Wrap Visit RADHA ([facility] (fq) visit, Established Patient 9 Fernando established patient; a 12:00:00 [facility], [facility]) ddsz-ju-yrfk encounter (one-on-one) between an established patient and a [facility] practitioner during which time one or more [facility] services are rendered and includes a typical bundle of medicare-covered services that would be furnished dielectric testing machine operator to a patient receiving a [facility] visit Bmi is documented above BMI > NORMAL BASILIO AGUILAR ([facility] normal parameters and a DOCUMENTED W F/U 9 Fernando follow-up plan is PLAN 12:00:00 [facility]) FINGER STICK BLOOD GLUCOSE FINGER STICK BLOOD [place] ([facility] GLUCOSE 9 Fernando 12:00:00 [facility]) Injection, insulin, per 5 Insulin (Injection) [place] ([facility] units 9 Fernando 12:00:00 [facility]) TSH-THYROID STIMULATING TSH-THYROID JACKELYN NWLINDA ([facility] STIMULATING 9 Fernando 12:00:00 [facility]) THYROXINE FREE (FT4) THYROXINE FREE (FT4) [place] ([facility] 9 [place] 12:00:00 [facility]) LIPID PANEL LIPID PANEL [place] ([facility] 9 [place] 12:00:00 [facility]) HEMOGLOBIN A1C HEMOGLOBIN A1C [place] ([facility] 9 Fernando 12:00:00 [facility]) URINALYSIS MICROSCOPIC URINALYSIS [facility] ([facility] MICROSCOPIC 9 Fernando 12:00:00 [facility]) METABOLIC PANEL COMPREHE METABOLIC PANEL [place] ([facility] COMPREHE 9 Fernando 12:00:00 [facility]) HEPATIC FUNCTION PANEL HEPATIC FUNCTION G REENWAY ([facility] PANEL 9 Fernando 12:00:00 [facility]) HEPATITIS Be ANTIGEN HEPATITIS Be ANTIGEN [place] ([facility] (HBeAG) (HBeAG) 9 Fernando 12:00:00 [facility]) HEPATITIS B CORE ANTIBODY HEPATITIS B CORE [place] ([facility] ([facility]); TOTAL ANTIBODY ([facility]); 9 Fernando TOTAL 12:00:00 [facility]) HEPATITIS B SURFACE HEPATITIS B SURFACE [facility] ([facility] ANTIBODY (HBsAb) ANTIBODY (HBs[facility]) 9 Fernando 12:00:00 [facility]) HEPATITIS C ANTIBODY HEPATITIS C ANTIBODY RADHA ([facility] 9 Fernando 12:00:00 [facility]) [id number]-EAPCICMA [facility] ([facility] 9 Fernando 12:00:00 [facility]) Administration of oral, ADMIN OF ORAL OR IM [place] ([facility] intramuscular and/or MEDS [address] [place] [address] subcutaneous medication by 12:00:00 [facility]) agency/professional, per visit Psychotherapy (30 Mins) W/ N EXTGEN ([facility] E&M [address] [place] [address] 12:00:00 [place]) AM EDT - 9 12:00:00 AM EDT OFFICE/OUTPATIENT VISIT, NEX TGEN ([address] 12:00:00 [place]) AM EDT - 9 12:00:00 AM EDT Individual Psychotherapy NEX TGEN ([facility] (30 Min) [address] [place] [address] 12:00:00 [place]) AM EST - 9 12:00:00 AM EST OFFICE/OUTPATIENT VISIT, NEX TGEN ([address] 12:00:00 [place]) AM EST - 8 12:00:00 AM EST DEBRIDEMENT NAILS SIX OR DEBRIDEMENT NAILS RADHA ([facility] MORE SIX OR MORE 8 Fernando 12:00:00 [facility]) [facility] F[facility] Wrap Visit [place] ([facility] (fqhc) visit, Established Patient 8 Fernando established patient; a 12:00:00 [facility] medically-necessary, [facility]) vnrp-cw-mcmr encounter (one-on-one) between an established patient and a fqhc practitioner during which time one or more fq services are rendered and includes a typical bundle of medicare-covered services that would be furnished dielectric testing machine operator to a patient receiving a fq visit Advance healthcare Advance healthcare GRE ENWAY ([facility] directive not on file directive not on 7 Ve rnon file 12:00:00 [facility]) OFFICE/OUTPATIENT VISIT, NEX TGEN ([address] 12:00:00 [place]) EDT - 4 12:00:00 AM EDT OFFICE/OUTPATIENT VISIT, NEX TGEN ([address] 12:00:00 [place]) EDT - 4 12:00:00 AM EDT OFFICE/OUTPATIENT VISIT, NEX TGEN ([address] 12:00:00 [place]) EDT - 4 12:00:00 AM EDT MEASURE BLOOD OXYGEN LEVEL N EXTGEN ([address] 12:00:00 [place]) EDT - 4 12:00:00 AM EDT No history of No history of RADHA ([facility] hyperlipidemia hyperlipidemia 4 Fernando 12:00:00 [facility]) History of type 2 diabetes History of type 2 RADHA ([facility] mellitus diabetes mellitus 4 Fernando 12:00:00 [facility]) History of essential History of essential [place] ([facility] hypertension hypertension 4 Fernando 12:00:00 [facility]) History of coronary artery History of coronary [place] ([facility] disease artery disease 4 Fernando 12:00:00 [facility]) Pt. has not had a Pt. has not had a GREEN WAY ([facility] hysterectomy hysterectomy 4 [place] 12:00:00 [facility]) No Surgery No Surgery RADHA ([facility] 4 [place] 12:00:00 [facility]) No past medical history No past medical G REENWAY ([facility] reported history reported 4 Fernando 12:00:00 [facility]) History of No carotid History of No GREEN WAY ([facility] bruits carotid bruits 4 Fernando 12:00:00 [facility]) History of Eyes: normal History of Eyes: RADHA ([facility] normal 4 Fernando 12:00:00 [facility]) No history of thyroid No history of GREEN WAY ([facility] surgery thyroid surgery 4 [place] 12:00:00 [facility]) No history of prostatectomy No history of RADHA ([facility] prostatectomy 4 Fernando 12:00:00 [facility]) No history of enteroscopic No history of RADHA ([facility] polypectomy enteroscopic 4 Fernando polypectomy 12:00:00 [facility]) No history of appendectomy No history of RADHA ([facility] appendectomy 4 Fernando 12:00:00 [facility]) Recent change in medical Recent change in RADHA ([facility] history medical history 4 Fernando 12:00:00 [facility]) Prior serious illness Prior serious GREEN WAY ([facility] illness 4 Fernando 12:00:00 [facility]) OFFICE/OUTPATIENT VISIT, NEX TGEN ([address] 12:00:00 [place]) AM EDT - 4 12:00:00 AM EDT OFFICE/OUTPATIENT VISIT, NEX TGEN ([address] 12:00:00 [place]) AM EDT - 4 12:00:00 AM EDT Current medication seems to Current medication RADHA ([facility] be helping seems to be helping 4 Fernando 12:00:00 [facility]) hyperlipidemia, vertigo, hyperlipidemia, RADHA ([facility] [place], arthritis, back pain vertigo, [place], 4 Gaurav non arthritis, back pain 12:00:00 [facility]) History of hypertension History of JACKELYN NWLINDA ([facility] hypertension 4 Fernando 12:00:00 [facility]) History of diabetes History of diabetes Cassidy DODSONNABELARDO ([facility] mellitus mellitus 4 Fernando 12:00:00 [facility]) History of surgery s/o History of surgery RADHA ([facility] 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 ID Date Data Source [id number] 08/30/2019 12:00:00 AM EDT [place] ([facility]) Name Value Range Interpretation Description Data Source(s ) Supporting Code Document(s ) Microalbumin 281.5 Albumin, [place] [Mass/volume] ug/mL Urine ([place] in Urine [facility]) ID Date Data Source [id number] 08/30/2019 12:00:00 AM EDT [place] ([facility]) Name Value Range Interpretation Description Data Source(s ) Supporting Code Document(s ) Prostate 2.1 Prostate RADHA ([facility] specific Ag ng/mL Specific Ag, Fernando [Mass/volum Serum Neighborhood e] in [facility]) or Plasma Note: Alejandrina ECLIA methodology.According to the [place] [employer], Serum PSA shoulddecrease and remain [...] of malignant disease. ID Date Data Source [id number] 08/30/2019 12:00:00 AM EDT RADHA ([facility]) Name Value Range Interpretation Description Data Source(s ) Supporting Code Document(s ) Thyrotropin 3.770 TSH RADHA ([facility] [Units/volume] uIU/mL [place] in Serum or [facility] Plasma by [facility]) Detection limit <= 0.05 mIU/L ID Date Data Source [id number] 08/30/2019 12:00:00 AM EDT [place] ([facility]) Name Value Range Interpretation Description Data Source(s ) Supporting Code Document(s ) Hemoglobin 10.3 % Above high normal Hemoglobin A1c GREEN AY ([facility] A1c/Hemoglobi [place] n.total in [facility] Blood [facility]) Note: Prediabetes: 5.7 - 6.4 Diabetes: >6.4 Glycemic control for adults with diabetes: <7.0 ID Date Data Source [id number] 08/30/2019 12:00:00 AM EDT [place] ([facility]) Name Value Range Interpretation Description Data Source(s ) Supporting Code Document(s ) Cholesterol 165 Cholesterol, RADHA [Mass/volume] mg/dL Total ([place] in Serum or [facility] Plasma [facility]) Triglyceride 191 Above high Triglycerides [place] [Mass/volume] mg/dL normal ([place] in Serum or [facility] Plasma [facility]) Cholesterol in 40 HDL Cholesterol [place] HDL mg/dL ([place] [Mass/volume] [facility] in Serum or [facility] [place]) Plasma Laboratory N/A Comment: [place] comment [Text] ([place] in Report [facility]) Cholesterol in 2.2 LDL/HDL Ratio [place] LDL/Cholestero ratio ([place] l in HDL [Mass Neighborhood Ratio] in [facility] [place]) Serum or Plasma Note: LDL/HDL Ratio Men Women 1/2 Avg.Risk 1.0 1.5 Avg.Risk 3.6 3.2 2X Avg.Risk 6.2 5.0 3X Avg.Risk 8.0 6.1 Cholesterol in VLDL 38 mg/dL VLDL Cholesterol Maverick [place] ([place] [Mass/volume] in Serum or [facility] Plasma by calculation Center) Cholesterol in LDL 87 mg/dL LDL Cholesterol Calc [place] ([place] [Mass/volume] in Serum or [facility] Plasma by calculation Center) ID Date Data Source [id number] 08/30/2019 12:00:00 AM EDT [place] ([facility]) Name Value Range Interpretation Description Data Sup porting Code Source(s) Document(s ) Calcium 9.5 Calcium RADHA [Mass/volume] in mg/dL ([place] Serum or [facility]) Glucose 237 Above high Glucose RADHA [Mass/volume] in mg/dL normal ([facility] or [facility]) Urea nitrogen 16 BUN RADHA [Mass/volume] in mg/dL ([facility] or [facility]) Protein 7.5 Protein, RADHA [Mass/volume] in g/dL Total ([facility] or [facility]) Albumin 4.6 Albumin RADHA [Mass/volume] in g/dL ([facility] or [facility]) Bilirubin.total 0.2 Bilirubin, RADHA [Mass/volume] in mg/dL Total ([facility] or [facility]) Aspartate 16 IU/L AST (SGOT) RADHA aminotransferase ([place] [Enzymatic Neighborhood activity/volume] Health in Serum or [facility]) Alkaline 61 IU/L Alkaline RADHA phosphatase Phosphatase ([place] [Enzymatic [facility] activity/volume] [facility] in Serum or [facility]) Potassium 5.2 Potassium RADHA [Moles/volume] in mmol/L ([facility] or [facility]) Sodium 139 Sodium RADHA [Moles/volume] in mmol/L ([facility] or [facility]) Creatinine 0.86 Creatinine RADHA [Mass/volume] in mg/dL ([facility] or [facility]) Chloride 104 Chloride RADHA [Moles/volume] in mmol/L ([facility] or [facility]) Carbon dioxide, 19 Below low normal Carbon [place] Y total mmol/L Dioxide, ([place] [Moles/volume] in Total [facility] Serum or [facility]) Alanine 25 IU/L ALT (SGPT) RADHA aminotransferase ([place] [Enzymatic [facility] activity/volume] Health in Serum or Plasma [place]) Globulin 2.9 Globulin, RADHA [Mass/volume] in g/dL Total ([facility] by [facility]) Urea 19 BUN/Creatinin RADHA nitrogen/Creatinin e Ratio ([facility] on e [Mass Ratio] in [facility] or [facility]) eGFR If NonAfricn 88 eGFR If RADHA Am mL/min/ NonAfricn Am ([place] 1.73 [facility]) Albumin/Globulin 1.6 A/G Ratio RADHA [Mass Ratio] in ([place] Serum or Plasma [facility]) eGFR If Africn Am 102 eGFR If RADHA mL/min/ Africn Am ([place] 1.73 [facility]) ID Date Data Source [id number] 03/23/2019 11:29:00 AM EST RADHA ([facility]) Name Value Range Interpretation Description Data Source(s ) Supporting Code Document(s ) Thyrotropin 3.830 TSH [place] ([facility] [Units/volume] uIU/mL [place] in Serum or [facility] Plasma by [facility]) Detection limit <= 0.05 mIU/L ID Date Data Source [id number] 03/23/2019 11:29:00 AM EST RADHA ([facility]) Name Value Range Interpretation Description Data Source(s ) Supporting Code Document(s ) Hemoglobin 9.5 % Above high normal Hemoglobin A1c [facility] AY ([facility] A1c/Hemoglobi Fernando n.total in [facility]) Note: Prediabetes: 5.7 - 6.4 Diabetes: >6.4 Glycemic control for adults with diabetes: <7.0 ID Date Data Source [id number] 03/23/2019 11:29:00 AM EST RADHA ([facility]) Name Value Range Interpretation Description Data Source(s ) Supporting Code Document(s ) Cholesterol 166 Cholesterol, RADHA [Mass/volume] mg/dL Total ([place] in Serum or [facility] Plasma [facility]) Cholesterol in 39 Below low normal HDL Cholesterol GR EENWAY HDL mg/dL ([place] [Mass/volume] [facility] in Serum or [facility] [place]) Plasma Triglyceride 161 Above high Triglycerides RADHA [Mass/volume] mg/dL normal ([facility] in Serum or [facility] Plasma [facility]) Laboratory N/A Comment: RADHA comment [Text] ([place] in Report [facility]) Cholesterol in 32 VLDL RADHA VLDL mg/dL Cholesterol Maverick ([place] [Mass/volume] [facility] in Serum or [facility] [place]) Plasma by calculation Cholesterol in 2.4 LDL/HDL Ratio RADHA LDL/Cholestero ratio (Annia King l in HDL [Mass Neighborhood Ratio] in [facility] [place]) Serum or Plasma Note: LDL/HDL Ratio Men Women 1/2 Avg.Risk 1.0 1.5 Avg.Risk 3.6 3.2 2X Avg.Risk 6.2 5.0 3X Avg.Risk 8.0 6.1 Cholesterol in LDL 95 mg/dL LDL Cholesterol Calc RADHA ([place] [Mass/volume] in Serum or [facility] Plasma by calculation Center) ID Date Data Source [id number] 03/23/2019 11:29:00 AM EST RADHA ([facility]) Name Value Range Interpretation Description Data Sup porting Code Source(s) Document(s ) Calcium 9.3 Calcium RADHA [Mass/volume] in mg/dL ([place] Serum or [facility]) Glucose 174 Above high Glucose RADHA [Mass/volume] in mg/dL normal ([place] Serum or [facility]) Protein 7.4 Protein, RADHA [Mass/volume] in g/dL Total ([facility]) Albumin 4.6 Albumin RADHA [Mass/volume] in g/dL ([facility] or [facility]) Urea nitrogen 17 BUN RADHA [Mass/volume] in mg/dL ([place] Serum or [facility]) Aspartate 12 IU/L AST (SGOT) RADHA aminotransferase ([place] [Enzymatic Neighborhood activity/volume] Health in Serum or Plasma Center) Alkaline 51 IU/L Alkaline RADHA phosphatase Phosphatase ([place] [Enzymatic Neighborhood activity/volume] Health in Serum or Plasma Center) Bilirubin.total 0.3 Bilirubin, RADHA [Mass/volume] in mg/dL Total ([facility] or [facility]) Potassium 4.0 Potassium RADHA [Moles/volume] in mmol/L ([facility] Serum or [facility]) Sodium 138 Sodium RADHA [Moles/volume] in mmol/L ([facility] Serum or [facility]) Chloride 101 Chloride RADHA [Moles/volume] in mmol/L ([facility] Serum [facility]) Alanine 17 IU/L ALT (SGPT) RADHA aminotransferase ([place] [Enzymatic Neighborhood activity/volume] Health in Serum or Plasma Center) Creatinine 1.01 Creatinine RADHA [Mass/volume] in mg/dL ([facility]) Globulin 2.8 Globulin, RADHA [Mass/volume] in g/dL Total ([facility] by [facility]) Carbon dioxide, 21 Carbon [place] total mmol/L Dioxide, ([place] [Moles/volume] in Total [facility] Serum or Plasma [facility]) Urea 17 BUN/Creatinin [place] nitrogen/Creatinin e Ratio ([facility] Anjel on e [Mass Ratio] in [facility] Serum or [facility]) Albumin/Globulin 1.6 A/G Ratio RADHA [Mass Ratio] in ([place] Serum or Plasma [facility]) eGFR If Africn Am 87 eGFR If RADHA mL/min/ Africn Am ([address]) eGFR If NonAfricn 76 eGFR If RADHA Am mL/min/ NonAfricn Am ([address]) ID Date Data Source [id number] 10/18/2018 10:58:00 AM EDT RADHA ([facility]) Name Value Range Interpretation Description Data Source(s ) Supporting Code Document(s ) Ferritin 63 ng/mL Ferritin, [place] ([facility] [Mass/volum Serum Fernando e] in Serum [facility] or [facility]) ID Date Data Source [id number] 10/18/2018 10:58:00 AM EDT [place] ([facility]) Name Value Range Interpretation Description Data Source(s ) Supporting Code Document(s ) Microalbumin 109.6 Albumin, [place] [Mass/volume] ug/mL Urine ([place] in Urine [facility]) ID Date Data Source [id number] 10/18/2018 10:58:00 AM EDT [place] ([facility]) Name Value Range Interpretation Description Data Source(s ) Supporting Code Document(s ) Thyrotropin 3.530 TSH [place] ([facility] [Units/volume] uIU/mL [place] in Serum or [facility] Plasma [facility]) Detection limit <= 0.05 mIU/L ID Date Data Source [id number] 10/18/2018 10:58:00 AM EDT RADHA ([facility]) Name Value Range Interpretation Description Data Source(s ) Supporting Code Document(s ) Hemoglobin 9.5 % Above high normal Hemoglobin A1c [facility] AY ([facility] A1c/Hemoglobi Fernando n.total in [facility]) Note: Prediabetes: 5.7 - 6.4 Diabetes: >6.4 Glycemic control for adults with diabetes: <7.0 ID Date Data Source [id number] 10/18/2018 10:58:00 AM EDT RADHA ([facility]) Name Value Range Interpretation Description Data Source(s ) Supporting Code Document(s ) Iron 88 ug/dL Iron RADHA ([facility] [Mass/volu Fernando me] in [facility] Serum or [facility]) Plasma Note: Reference Range:>=10y: 61 - 157 ID Date Data Source [id number] 10/18/2018 10:58:00 AM EDT RADHA ([facility]) Name Value Range Interpretation Description Data Source(s ) Supporting Code Document(s ) Iron 86 ug/dL Iron RADHA [Mass/volume] ([place] in Serum or [facility] Plasma [facility]) Iron binding 330 Iron RADHA capacity ug/dL Bind.Cap.(TIBC ([place] [Mass/volume] ) [facility] in Serum or Health Center) Plasma Iron binding 244 UIBC RADHA capacity.unsa ug/dL ([place] turated [facility] [Mass/volume] [facility]) in Serum or Plasma Iron 26 % Iron RADHA saturation Saturation ([place] [Mass Neighborhood Fraction] in [facility]) Serum or Plasma ID Date Data Source [id number] 10/18/2018 10:58:00 AM EDT RADHA ([facility]) Name Value Range Interpretation Description Data Source(s ) Supporting Code Document(s ) Cholesterol 183 Cholesterol, [place] [Mass/volume] mg/dL Total ([place] in Serum or [facility] Plasma [facility]) Triglyceride 192 Above high Triglycerides [place] [Mass/volume] mg/dL normal ([place] in Serum or [facility] Plasma [facility]) Cholesterol in 38 VLDL RADHA VLDL mg/dL Cholesterol Maverick ([place] [Mass/volume] [facility] in Serum or [facility]) Plasma by calculation Cholesterol in 2.7 LDL/HDL Ratio RADHA LDL/Cholestero ratio ([place] l in HDL [[facility] Ratio] in [facility]) Serum or Plasma Note: LDL/HDL Ratio Men Women 1/2 Avg.Risk 1.0 1.5 Avg.Risk 3.6 3.2 2X Avg.Risk 6.2 5.0 3X Avg.Risk 8.0 6.1 Laboratory comment N/A Comment: RADHA (M ount [Text] in Report [facility]) Cholesterol in HDL 39 mg/dL Below low HDL Cholesterol [address] ([facility] [Mass/volume] in normal [facility]) Cholesterol in LDL 106 mg/dL Above high LDL Cholesterol JACKELYN OVALLE ([facility] [Mass/volume] in normal Calc [facility] Serum or Plasma by [facility] er) calculation ID Date Data Source [id number] 10/18/2018 10:58:00 AM EDT RADHA ([facility]) Name Value Range Interpretation Description Data Sup porting Code Source(s) Document(s ) Urea nitrogen 29 Above high BUN RADHA [Mass/volume] in mg/dL normal ([facility]) Calcium 9.5 Calcium RADHA [Mass/volume] in mg/dL ([facility]) Protein 8.4 Protein, RADHA [Mass/volume] in g/dL Total ([facility]) Glucose 222 Above high Glucose RADHA [Mass/volume] in mg/dL normal ([facility]) Alkaline 64 IU/L Alkaline RADHA phosphatase Phosphatase ([place] [Enzymatic Neighborhood activity/volume] [facility] in Serum or Plasma [place]) Bilirubin.total 0.3 Bilirubin, RADHA [Mass/volume] in mg/dL Total ([facility]) Albumin 5.0 Above high Albumin RADHA [Mass/volume] in g/dL normal ([facility]) Aspartate 16 IU/L AST (SGOT) RADHA aminotransferase ([place] [Enzymatic Neighborhood activity/volume] [facility] in Serum or Plasma [place]) Creatinine 1.28 Above high Creatinine RADHA [Mass/volume] in mg/dL normal ([facility]) Potassium 5.3 Above high Potassium RADHA [Moles/volume] in mmol/L normal ([facility]) Chloride 100 Chloride RADHA [Moles/volume] in mmol/L ([facility]) Sodium 139 Sodium RADHA [Moles/volume] in mmol/L ([facility]) Globulin 3.4 Globulin, RADHA [Mass/volume] in g/dL Total ([place] Serum by [facility]) Alanine 27 IU/L ALT (SGPT) [place] aminotransferase ([place] [Enzymatic [facility] activity/volume] Health in Serum or Plasma Center) Carbon dioxide, 19 Below low normal Carbon [facility] Y total mmol/L Dioxide, ([place] [Moles/volume] in Total [facility]) Urea 23 BUN/Creatinin RADHA nitrogen/Creatinin e Ratio ([facility] on e [Mass Ratio] in [facility] Serum or [facility]) Albumin/Globulin 1.5 A/G Ratio ARDHA [Mass Ratio] in ([place] Serum or Plasma [facility]) eGFR If Africn Am 66 eGFR If RADHA mL/min/ Africn Am ([address]) eGFR If NonAfricn 57 Below low normal eGFR If [address] Am mL/min/ NonAfricn Am ([address]) ID Date Data Source [id number] 08/26/2018 12:00:00 AM EDT [place] ([facility]) Name Value Range Interpretation Description Data Sup porting Code Source(s) Document(s ) Bacteria Final report Abnormal Urine RADHA identified (applies to Culture, ([place] in Urine by non-numeric Routine [facility] Culture results) [facility]) Bacteria Escherichia Abnormal Result 1 RADHA identified coli (applies to ([place] in Urine by non-numeric [facility] Culture results) [facility]) Note: 25,000-50,000 colony forming units per mLCefazolin <=4 ug/mLCefazolin with an ROWDY <=16 predicts susceptibility to the oral agentscefaclor, cefdinir, cefpodoxime, cefprozil, cefuroxime, cephalexin,and lo racarbef when used for therapy of uncomplicated urinary tractinfections du e to E. coli, Klebsiella pneumoniae, and Proteusmirabilis. Other Antibiotic MIHEAD Antimicrobial [place] ([place] [Susceptibility] Susceptibility [facility]) Note: S = Susceptible; I = Inte rmediate; R = Resistant P = Positive; N = Negative WI CS are expressed in micrograms per mL Antibiotic RSLT#1 RSL T#2 RSLT#3 RSLT#4Amoxicillin/Clavulanic Acid SAmpicillin RCefepime SCeftriaxone SCefuroxime SCiprofloxacin SErtapenem SGentami kapil SImipenem SLevofloxacin SMeropenem SNitrofurantoin SPiperac illin/Tazobactam STetracycline STobramycin STrimethoprim/Sulfa R ID Date Data Source [id number] 08/15/2018 11:48:19 AM EDT HECTOR Y ([place] [id number] [facility]) Name Value Range Interpretation Description Data Source(s ) Supporting Code Document(s ) No Results No Results No Results RADHA ([facility] Recorded For [facility]) ID Date Data Source [id number] 08/12/2018 03:05:52 PM EDT GREENMICHAEL Y ([place] [id number] [facility]) Name Value Range Interpretation Description Data Source(s ) Supporting Code Document(s ) No Results No Results No Results RADHA ([facility] Recorded For [facility]) ID Date Data Source [id number] 08/12/2018 03:04:12 PM EDT GREENWA Y ([place] [id number] [facility]) Name Value Range Interpretation Description Data Source(s ) Supporting Code Document(s ) No Results No Results No Results RADHA ([facility] Recorded For [facility]) ID Date Data Source [id number] 08/12/2018 03:04:00 PM EDT RADHA ([facility]) Name Value Range Interpretation Description Data Source(s ) Supporting Code Document(s ) Bacteria Final Urine RADHA identified in report Culture, ([place] Urine by Routine [facility]) Bacteria No growth Result 1 RADHA identified in ([place] Urine by [facility]) ID Date Data Source [id number] 08/12/2018 03:04:00 PM EDT RADHA ([facility]) Name Value Range Interpretation Description Data Source(s ) Supporting Code Document(s ) Hepatitis B Negative Hep B Core RADHA virus core Ab Ab, Tot (Annia King [Presence] in [facility] Serum or Health Center) Plasma by Immunoassay ID Date Data Source [id number] 08/12/2018 03:04:00 PM EDT RADHA ([facility]) Name Value Range Interpretation Description Data Source(s ) Supporting Code Document(s ) Hepatitis B Negative HBsAg Screen RADHA virus surface ([place] Ag [Presence] Neighborhood in Serum or [facility]) Plasma by Immunoassay ID Date Data Source [id number] 08/12/2018 03:04:00 PM EDT RADHA ([facility]) Name Value Range Interpretation Description Data Source(s ) Supporting Code Document(s ) Microalbumin 114.6 Albumin, [place] [Mass/volume] ug/mL Urine ([place] in Urine [facility]) ID Date Data Source [id number] 08/12/2018 03:04:00 PM EDT RADHA ([facility]) Name Value Range Interpretation Description Data Source(s ) Supporting Code Document(s ) Hepatitis C <0.1 Hep C Virus [place] virus Ab s/co_rat Ab ([place] Signal/Cutoff io Neighborhood in Serum or [facility]) Plasma by Immunoassay Note: Negative: < 0.8 Indeterm inate: 0.8 - 0.9 Positive: > 0.9 The CDC recommends that a positive HCV antibody result be followed up with a HCV Nucleic Acid Amplification test (82671 3). ID Date Data Source [id number] 08/12/2018 03:04:00 PM EDT RADHA ([facility]) Name Value Range Interpretation Description Data Source(s ) Supporting Code Document(s ) Prostate 1.1 Prostate RADHA ([place] specific Ag ng/mL Specific Ag, Fernando [Mass/volum Serum Neighborhood e] in [facility]) or Plasma Note: Alejandrina ECLIA methodology.According to the [place] [employer], Serum PSA shoulddecrease and remain [...] of malignant disease. ID Date Data Source [id number] 08/12/2018 03:04:00 PM EDT RADHA ([facility]) Name Value Range Interpretation Description Data Source(s ) Supporting Code Document(s ) Hepatitis B Non Hep B Surface [place] virus Reactive Ab, Qual ([place] surface Ab [facility] [Presence] [facility]) in Serum Note: Non R eactive: Inconsistent with immunity, less th an 10 mIU/mL Reactive: Consistent with immunity, greater than 9.9 mIU/mL ID Date Data Source [id number] 08/12/2018 03:04:00 PM EDT RADHA ([facility]) Name Value Range Interpretation Description Data Source(s ) Supporting Code Document(s ) Thyrotropin 1.820 TSH [place] ([facility] [Units/volume] uIU/mL [place] in Serum or Neighborhood Plasma by [facility]) Detection limit <= 0.05 mIU/L ID Date Data Source [id number] 08/12/2018 03:04:00 PM EDT RADHA ([facility]) Name Value Range Interpretation Description Data Source(s ) Supporting Code Document(s ) Hemoglobin 11.2 % Above high normal Hemoglobin A1c ASHLI LINDA ([facility] A1c/Hemoglobi Fernando n.total in [facility] Blood [facility]) Note: Prediabetes: 5.7 - 6.4 Diabetes: >6.4 Glycemic control for adults with diabetes: <7.0 ID Date Data Source [id number] 08/12/2018 03:04:00 PM EDT RADHA ([facility]) Name Value Range Interpretation Description Data Source(s ) Supporting Code Document(s ) Cholesterol 173 Cholesterol, RADHA [Mass/volume] mg/dL Total ([place] in Serum or [facility] Plasma [facility]) Triglyceride 349 Above high Triglycerides RADHA [Mass/volume] mg/dL normal ([place] in Serum or [facility] Plasma [facility]) Cholesterol in 35 Below low normal HDL Cholesterol GR EENWAY HDL mg/dL ([place] [Mass/volume] [facility] in Serum or Health [place]) Plasma Cholesterol in 70 Above high VLDL RADHA VLDL mg/dL normal Cholesterol [place] ([place] [Mass/volume] [facility] in Serum or [facility]) Plasma by calculation Laboratory N/A Comment: RADHA comment [Text] ([place] in Report [facility]) Cholesterol in 1.9 LDL/HDL Ratio RADHA LDL/Cholestero ratio ([place] l in HDL [Mass Neighborhood Ratio] in [facility]) Serum or Plasma Note: LDL/HDL Ratio Men Women 1/2 Avg.Risk 1.0 1.5 Avg.Risk 3.6 3.2 2X Avg.Risk 6.2 5.0 3X Avg.Risk 8.0 6.1 Cholesterol in LDL 68 mg/dL LDL Cholesterol Calc RADHA ([place] [Mass/volume] in Serum or [facility] Plasma by [facility]) ID Date Data Source [id number] 08/12/2018 03:04:00 PM EDT RADHA ([facility]) Name Value Range Interpretation Description Data Sup porting Code Source(s) Document(s ) Calcium 9.3 Calcium RADHA [Mass/volume] in mg/dL ([place] Serum or [facility]) Protein 7.3 Protein, RADHA [Mass/volume] in g/dL Total ([facility]) Glucose 392 Above high Glucose RADHA [Mass/volume] in mg/dL normal ([facility]) Urea nitrogen 23 BUN RADHA [Mass/volume] in mg/dL ([facility] or [facility]) Alkaline 59 IU/L Alkaline RADHA phosphatase Phosphatase ([place] [Enzymatic Neighborhood activity/volume] [facility] in Serum or Plasma [place]) Bilirubin.total 0.2 Bilirubin, RADHA [Mass/volume] in mg/dL Total ([facility]) Albumin 4.5 Albumin RADHA [Mass/volume] in g/dL ([facility]) Aspartate 13 IU/L AST (SGOT) RADHA aminotransferase ([place] [Enzymatic Neighborhood activity/volume] [facility] in Serum or Plasma [place]) Sodium 138 Sodium RADHA [Moles/volume] in mmol/L ([facility] Serum or [facility]) Potassium 4.8 Potassium RADHA [Moles/volume] in mmol/L ([facility]) Creatinine 1.06 Creatinine RADHA [Mass/volume] in mg/dL ([facility]) Alanine 22 IU/L ALT (SGPT) RADHA aminotransferase ([place] [Enzymatic Neighborhood activity/volume] [facility] in Serum or Plasma [place]) Chloride 101 Chloride RADHA [Moles/volume] in mmol/L ([facility]) Urea 22 BUN/Creatinin RADHA nitrogen/Creatinin e Ratio ([facility] on e [Mass Ratio] in [facility] Serum or Plasma [facility]) Albumin/Globulin 1.6 A/G Ratio RADHA [Mass Ratio] in ([place] Serum or Plasma [facility]) Globulin 2.8 Globulin, RADHA [Mass/volume] in g/dL Total ([place] Serum by [facility] calculation [facility]) Carbon dioxide, 19 Below low normal Carbon [place] Y total mmol/L Dioxide, ([place] [Moles/volume] in Total [facility] Serum or [facility]) eGFR If Africn Am 83 eGFR If RADHA mL/min/ Africn Am ([address]) eGFR If NonAfricn 72 eGFR If RADHA Am mL/min/ NonAfricn Am ([address]) ID Date Data Source [id number] 08/12/2018 03:04:00 PM EDT RADHA ([facility]) Name Value Range Interpretation Description Data Source(s ) Supporting Code Document(s ) Leukocytes 4.6 WBC RADHA [#/volume] in x10E3/u ([place] Blood by [facility] Automated count [facility]) Erythrocytes 4.36 RBC RADHA [#/volume] in x10E6/u ([place] Blood by [facility] Automated count [facility]) Hematocrit 37.0 % Below low normal Hematocrit RADHA [Volume ([place] Fraction] of [facility] Blood [facility]) Automated count Hemoglobin 12.3 Below low normal Hemoglobin RADHA [Mass/volume] g/dL ([place] in Blood [facility]) Erythrocyte 28.2 pg MCH RADHA mean ([place] corpuscular [facility] hemoglobin [facility]) [Entitic mass] by Automated count Erythrocyte 33.2 MCHC RADHA mean g/dL ([place] corpuscular [facility] hemoglobin [facility]) concentration [Mass/volume] by Automated count Erythrocyte 85 fL MCV RADHA mean ([place] corpuscular [facility] volume [[facility]) volume] by Automated count Neutrophils/100 60 % Neutrophils RADHA leukocytes in ([place] Blood by [facility] Automated count [facility]) Immature 0 % Immature RADHA granulocytes/10 [facility]ulocytes [facility] [address] [facility] Blood [facility]) Lymphocytes/100 32 % Lymphs RADHA leukocytes in ([place] Blood by [facility]) Monocytes/100 5 % Monocytes RADHA leukocytes in ([place] Blood by [facility]) Eosinophils/100 3 % Eos RADHA leukocytes in ([place] Blood by [facility]) Basophils/100 0 % Basos RADHA leukocytes in ([place] Blood by [facility]) Platelets 129 Below low normal Platelets RADHA [#/volume] in x10E3/u ([place] Blood by [facility]) Morphology N/A Hematology RADHA [Interpretation Comments: ([place] ] in Blood [facility]) Neutrophils 2.7 Neutrophils RADHA [#/volume] in x10E3/u (Absolute) ([place] Blood by [facility]) Immature 0.0 Immature Grans RADHA granulocytes x10E3/u (Abs) ([place] [#/volume] in [facility]) Monocytes 0.2 Monocytes(Abso RADHA [#/volume] in x10E3/u lute) ([place] Blood by [facility]) Lymphocytes 1.5 Lymphs RADHA [#/volume] in x10E3/u (Absolute) ([place] Blood by [facility]) Eosinophils 0.1 Eos (Absolute) RADHA [#/volume] in x10E3/u ([place] Blood by [facility]) Basophils 0.0 Baso RADHA [#/volume] in x10E3/u (Absolute) ([place] Blood by [facility]) Nucleated N/A NRBC RADHA erythrocytes/10 ([place] 0 leukocytes Neighborhood [Ratio] in [facility]) Blood by Automated count Erythrocyte 14.6 % RDW RADHA distribution ([place] width [Ratio] [facility]) count Immature cells N/A Immature Cells RADHA [#/volume] in ([facility]) ID Date Data Source [id number] 08/11/2018 03:00:34 PM EDT GREENWA Y ([place] [id number] [facility]) Name Value Range Interpretation Description Data Source(s ) Supporting Code Document(s ) No Results No Results No Results RADHA ([facility]) ID Date Data Source [id number] 08/11/2018 02:29:50 PM EDT [place] Y ([place] [id number] [facility]) Name Value Range Interpretation Description Data Source(s ) Supporting Code Document(s ) No Results No Results No Results RADHA ([facility] Recorded For [facility]) ID Date Data Source [id number] 08/11/2018 12:50:21 PM EDT [place] Y ([place] [id number] [facility]) Name Value Range Interpretation Description Data Source(s ) Supporting Code Document(s ) No Results No Results No Results RADHA ([facility] Recorded For [facility]) ID Date Data Source [id number] 07/22/2018 04:52:16 PM EDT [place] Y ([place] [id number] [facility]) Name Value Range Interpretation Description Data Source(s ) Supporting Code Document(s ) No Results No Results No Results RADHA ([facility] Recorded For [facility]) ID Date Data Source [id number] 07/22/2018 01:19:26 PM EDT [place] Y ([place] [id number] [facility]) Name Value Range Interpretation Description Data Source(s ) Supporting Code Document(s ) No Results No Results No Results RADHA ([facility] Recorded For [facility]) ID Date Data Source [id number] 07/22/2018 10:34:50 AM EDT [place] Y ([place] [id number] [facility]) Name Value Range Interpretation Description Data Source(s ) Supporting Code Document(s ) No Results No Results No Results RADHA ([facility] Recorded For [facility]) ID Date Data Source [id number] 07/21/2018 04:35:57 PM EDT GRE[place] Y ([place] [id number] [facility]) Name Value Range Interpretation Description Data Source(s ) Supporting Code Document(s ) No Results No Results No Results RADHA ([facility] Recorded For [facility]) ID Date Data Source [id number] 07/21/2018 04:28:19 PM EDT GRE[place] Y ([place] [id number] [facility]) Name Value Range Interpretation Description Data Source(s ) Supporting Code Document(s ) No Results No Results No Results RADHA ([facility] Recorded For [facility]) Procedure Social History Code Duration Value Status Description Data Source(s ) Caffeine Use 01/03/2020 completed NEXTGEN ([facility] [facility] [facility] [place] Smoking 01/03/2020 Unknown if completed Unknown if ever NEXTGEN ( [facility] 12:00:00 AM ever smoked smoked [facility]) Caffeine Use 11/08/2019 completed NEXTGEN ([place] nt Details 12[facility]00[facility] [facility] Smoking 05/20/2019 Never smoked completed Never smoked RADHA ( [facility] 02:20:38 PM tobacco tobacco Fernando EST (finding) (finding) [facility]) Smoking 02/01/2019 Ex-smoker completed Ex-smoker RADHA ([facility] [facility] 12:29:36 PM (finding) (finding) [facility]) Smoking 09/19/2018 Never smoked completed Never smoked RADHA ( [place] 11:19:18 AM tobacco tobacco Fernando EDT (finding) ([facility]) [facility]) Smoking 08/26/2018 smoking status completed RADHA ( [facility] 02:43:57 PM [facility]) Smoking 07/24/2013 Never smoked completed Never smoked RADHA ( [facility] 11:57:36 AM tobacco tobacco Fernando EDT (finding) ([facility]) [facility]) Alcohol Use completed NEXTGEN ([facility]) Assertion Tobacco user completed Tobacco user RADHA ( [facility] (finding) (finding) [facility]) Assertion Emotional completed Emotional stress RADHA ([facility] stress (finding) [place] ([facility]) [facility]) Assertion social history completed RADHA ( [facility] unchanged [facility]) Assertion Smoker completed Smoker (finding) RADHA ([facility] ([facility]) [facility]) Assertion Finding of completed Finding of RADHA ([place] activity of activity of Fernando daily living daily living [place] (finding) ([facility]) [facility]) Assertion Physical completed Physical RADHA (M[place] t handicap handicap Fernando (finding) ([facility]) [facility]) Assertion Finding of completed Finding of life RADHA ([facility] life event event (finding) [place] ([facility]) [facility]) Assertion Caffeine user completed Caffeine user RADHA ([facility] (finding) (finding) [facility]) Assertion Exercise completed Exercise history RADHA ([facility] history finding Fernando finding (finding) [facility] ([facility]) [facility]) Assertion Finding completed Finding relating RADHA ([facility] relating to to drug misuse [place] drug misuse behavior [facility] behavior ([facility]) [facility]) (finding) Assertion Current completed Current drinker RADHA ([facility] drinker of of alcohol [place] alcohol (finding) [facility] ([facility]) [facility]) Smoking Unknown if completed Unknown if ever [facility] Assertion Finding completed Finding relating RADHA ([facility] relating to to drug misuse Fernando drug misuse behavior [facility] behavior ([facility]) [facility]) (finding) Assertion Current completed Current drinker RADHA ([facility] drinker of of alcohol [place] alcohol (finding) [facility] ([facility]) [facility]) Vital Signs ID Date Data Source UNK Name Value Range Interpretation Code Description Data Source(s) Body surface area 1.90 m2 1.90 m2 ASHLIMD Y ([place] [facility] from [facility]) Pt with low back pain for 4 months ago. pt requires patches for pain. Body mass index (BMI) 30.5 kg/m2 30.5 kg/m2 [facility] ([place] [Ratio] [facility]) Pt with low back pain for 4 months ago. pt requires patches for pain. Body weight 183 [lb_av] 183 [lb_av] [place] (M ount [facility]) Pt with low back pain for 4 months ago. pt requires patches for pain. Body height 65 [in_us] 65 [in_us] IRVING ([facility]) Pt with low back pain for 4 months ago. pt requires patches for pain. Body temperature 98.1 [degF] 98.1 [degF] ASHLI AY ([facility]) Pt with low back pain for 4 months ago. pt requires patches for pain. Heart rate 108 /min 108 /min [place] ([facility]) Pt with low back pain for 4 months ago. pt requires patches for pain. Diastolic blood pressure 85 mm[Hg] 85 mm[Hg] [place] ([facility]) Pt with low back pain for 4 months ago. pt requires patches for pain. Systolic blood pressure 122 mm[Hg] 122 mm[Hg] [facility] ([facility]) Pt with low back pain for 4 months ago. pt requires patches for pain. PhenX - pain, abdominal - type and 10 1 0 RADHA ([facility]) Pt with low back pain for 4 months ago. pt requires patches for pain. Body height 65 [in_us] 65 [in_us] [place] ([facility]) Body surface area Derived 1.92 m2 1.92 m2 [place] ([facility]) Pt follow ups labs. Pt has referral for orthopedics Body mass index (BMI) 31.0 kg/m2 31.0 kg/m2 [facility] ([place] [Rust] [facility]) Pt follow ups labs. Pt has referral for orthopedics Body weight 186 [lb_av] 186 [lb_av] [place] ([facility]) Pt follow ups labs. Pt has referral for orthopedics Body height 65 [in_us] 65 [in_us] [place] ([facility]) Pt follow ups labs. Pt has referral for orthopedics Body temperature 97.5 [degF] 97.5 [degF] [facility] ([facility]) Pt follow ups labs. Pt has referral for orthopedics Heart rate 96 /min 96 /min [place] ([facility]) Pt follow ups labs. Pt has referral for orthopedics Diastolic blood pressure 86 mm[Hg] 86 mm[Hg] [place] ([facility]) Pt follow ups labs. Pt has referral for orthopedics Systolic blood pressure 127 mm[Hg] 127 mm[Hg] [facility] ([facility]) Pt follow ups labs. Pt has referral for orthopedics PhenX - pain, abdominal - type and 10 1 0 [place] ([facility]) Pt follow ups labs. Pt has referral for orthopedics Body height 65 [in_us] 65 [in_us] [place] ([facility]) Patient is here to see the [employer]. PhenX - pain, abdominal - type and 0 0 [place] ([facility]) Patient is here to see the [employer]. Body surface area Derived from 1.92 m2 1.92 m2 [place] ([facility]) pt is here because of pain in the legs, he is quite confused with the previous referrals and says he does not know if h e has complied with them.Today, the pt wants a referral for the leg specialist. Body mass index (BMI) 31.0 kg/m2 31.0 kg/m2 [facility] ([place] [Rust] [facility]) pt is here because of pain in the legs, he is quite confused with the previous referrals and says he does not know if h e has complied with them.Today, the pt wants a referral for the leg specialist. Body weight 186 [lb_av] 186 [lb_av] [place] ([facility] pt is here because of pain in the legs, he is quite confused with the previous referrals and says he does not know if h e has complied with them.Today, the pt wants a referral for the leg specialist. Body height 65 [in_us] 65 [in_us] [place] ([facility]) pt is here because of pain in the legs, he is quite confused with the previous referrals and says he does not know if h e has complied with them.Today, the pt wants a referral for the leg specialist. Body temperature 98 [degF] 98 [degF] [place] ([facility]) pt is here because of pain in the legs, he is quite confused with the previous referrals and says he does not know if h e has complied with them.Today, the pt wants a referral for the leg specialist. Heart rate 101 /min 101 /min [place] ([facility]) pt is here because of pain in the legs, he is quite confused with the previous referrals and says he does not know if h e has complied with them.Today, the pt wants a referral for the leg specialist. Diastolic blood pressure 85 mm[Hg] 85 mm[Hg] [place] ([facility]) pt is here because of pain in the legs, he is quite confused with the previous referrals and says he does not know if h e has complied with them.Today, the pt wants a referral for the leg specialist. Systolic blood pressure 139 mm[Hg] 139 mm[Hg] Cassidy DODSONNicholeABELARDO ([facility]) pt is here because of pain in the legs, he is quite confused with the previous referrals and says he does not know if h e has complied with them.Today, the pt wants a referral for the leg specialist. PhenX - pain, abdominal - type and 10 1 0 [place] ([facility]) pt is here because of pain in the legs, he is quite confused with the previous referrals and says he does not know if h e has complied with them.Today, the pt wants a referral for the leg specialist. Body surface area Derived from 1.90 m2 1.90 m2 [place] ([facility]) Pt is here for several legs and feet celia n years ago Body mass index (BMI) 30.5 kg/m2 30.5 kg/m2 [facility] ([place] [Rust] [facility]) Pt is here for several legs and feet celia n years ago Body weight 183 [lb_av] 183 [lb_av] [place] ([facility]) Pt is here for several legs and feet celia n years ago Body height 65 [in_us] 65 [in_us] [place] ([facility]) Pt is here for several legs and feet celia n years ago Body temperature 97.8 [degF] 97.8 [degF] [facility] ([facility]) Pt is here for several legs and feet celia n years ago Heart rate 98 /min 98 /min [place] ([facility]) Pt is here for several legs and feet celia n years ago Diastolic blood pressure 82 mm[Hg] 82 mm[Hg] [place] ([facility]) Pt is here for several legs and feet celia n years ago Systolic blood pressure 138 mm[Hg] 138 mm[Hg] [facility] ([facility]) Pt is here for several legs and feet celia n years ago PhenX - pain, abdominal - type and 10 1 0 RADHA ([facility]) Pt is here for several legs and feet celia n years ago Body height 65 [in_us] 65 [in_us] RADHA ([facility]) Patient is here to see the [employer]. PhenX - pain, abdominal - type and 0 0 RADHA ([facility]) Patient is here to see the [employer]. Body height 65 [in_us] 65 [in_us] RADHA ([facility]) Patient is here for a Extremity venous s onogram. PhenX - pain, abdominal - type and 0 0 RADHA ([facility]) Patient is here for a Extremity venous s onogram. Body height 65 [in_us] 65 [in_us] RADHA ([facility]) Patient is here to see the [employer]. PhenX - pain, abdominal - type and 0 0 RADHA ([facility]) Patient is here to see the [employer]. Body surface area Derived from 1.91 m2 1.91 m2 [place] ([facility]) Pt comes for refills medication Body mass index (BMI) 30.8 kg/m2 30.8 kg/m2 [facility] ([place] [facility]Ratio[facility] Pt comes for refills medication Body weight 185 [lb_av] 185 [lb_av] RADHA ( ount [facility]) Pt comes for refills medication Body height 65 [in_us] 65 [in_us] RADHA ([facility]) Pt comes for refills medication Body temperature 97.7 [degF] 97.7 [degF] [facility] ([facility]) Pt comes for refills medication Heart rate 93 /min 93 /min RADHA ([facility]) Pt comes for refills medication Diastolic blood pressure 89 mm[Hg] 89 mm[Hg] RADHA ([facility]) Pt comes for refills medication Systolic blood pressure 145 mm[Hg] 145 mm[Hg] [facility] ([facility]) Pt comes for refills medication PhenX - pain, abdominal - type and 10 1 0 RADHA ([facility]) Pt comes for refills medication Body surface area Derived from 1.91 m2 1.91 m2 [place] ([facility]) Pt follow up labs. Pain 3 months ago . Body mass index (BMI) 30.8 kg/m2 30.8 kg/m2 [facility] ([place] [[place]] [facility]) Pt follow up labs. Pain 3 months ago . Body weight 185 [lb_av] 185 [lb_av] RADHA ([facility]) Pt follow up labs. Pain 3 months ago . Body height 65 [in_us] 65 [in_us] RADHA ([facility]) Pt follow up labs. Pain 3 months ago . Body temperature 97.6 [degF] 97.6 [degF] [facility] ([facility]) Pt follow up labs. Pain 3 months ago . Heart rate 89 /min 89 /min [place] ([facility]) Pt follow up labs. Pain 3 months ago . Diastolic blood pressure 84 mm[Hg] 84 mm[Hg] [place] ([facility]) Pt follow up labs. Pain 3 months ago . Systolic blood pressure 127 mm[Hg] 127 mm[Hg] [facility]) Pt follow up labs. Pain 3 months ago . PhenX - pain, abdominal - type and 10 1 0 RADHA ([facility]) Pt follow up labs. Pain 3 months ago . Body surface area Derived from 1.92 m2 1.92 m2 RADHA ([facility]) pt present lower joints, worse one week ago Body mass index (BMI) 31.0 kg/m2 31.0 kg/m2 [facility] ([place] [[place]ust] [facility]) pt present lower joints, worse one week ago Body weight 186 [lb_av] 186 [lb_av] RADHA ([facility]) pt present lower joints, worse one week ago Body height 65 [in_us] 65 [in_us] RADHA ([facility]) pt present lower joints, worse one week ago Body temperature 97.4 [degF] 97.4 [degF] [place] AY ([facility]) pt present lower joints, worse one week ago Heart rate 77 /min 77 /min RADHA ([facility]) pt present lower joints, worse one week ago Diastolic blood pressure 87 mm[Hg] 87 mm[Hg] RADHA ([facility]) pt present lower joints, worse one week ago Systolic blood pressure 135 mm[Hg] 135 mm[Hg] [facility] ([facility]) pt present lower joints, worse one week ago PhenX - pain, abdominal - type and 8 8 RADHA ([facility]) pt present lower joints, worse one week ago Body surface area Derived from 1.89 m2 1.89 m2 RADHA ([facility]) pt here for a f/u and have paperwork Body mass index (BMI) 30.0 kg/m2 30.0 kg/m2 [facility] ([place] [[place]] [facility]) pt here for a f/u and have paperwork Body weight 180 [lb_av] 180 [lb_av] RADHA ([facility]) pt here for a f/u and have paperwork Body height 65 [in_us] 65 [in_us] RADHA ([facility]) pt here for a f/u and have paperwork Body temperature 97.6 [degF] 97.6 [degF] [place] AY ([facility]) pt here for a f/u and have paperwork Respiratory rate 18 /min 18 /min RADHA ([facility]) pt here for a f/u and have paperwork Heart rate 88 /min 88 /min [place] ([facility]) pt here for a f/u and have paperwork Diastolic blood pressure 77 mm[Hg] 77 mm[Hg] RADHA ([facility]) pt here for a f/u and have paperwork Systolic blood pressure 113 mm[Hg] 113 mm[Hg] [facility] ([facility]) pt here for a f/u and have paperwork PhenX - pain, abdominal - type and 8 8 RADHA ([facility]) pt here for a f/u and have paperwork Body surface area Derived from 1.90 m2 1.90 m2 [place] ([facility]) pt is here for urology referral Body mass index (BMI) 30.3 kg/m2 30.3 kg/m2 [facility] ([place] [[place]] [facility]) pt is here for urology referral Body weight 182 [lb_av] 182 [lb_av] RADHA [facility] pt is here for urology referral Body height 65 [in_us] 65 [in_us] RADHA ([facility]) pt is here for urology referral Body temperature 96.1 [degF] 96.1 [degF] [facility] ([facility]) pt is here for urology referral Respiratory rate 18 /min 18 /min [place] ([facility]) pt is here for urology referral Heart rate 71 /min 71 /min [place] ([facility]) pt is here for urology referral Diastolic blood pressure 70 mm[Hg] 70 mm[Hg] [place] ([facility]) pt is here for urology referral Systolic blood pressure 108 mm[Hg] 108 mm[Hg] [facility] ([facility]) pt is here for urology referral PhenX - pain, abdominal - type and 8 8 [place] ([facility]) pt is here for urology referral Body surface area Derived from 1.91 m2 1.91 m2 [place] ([facility]) Pt state He's here due to on-going Pain in Both Knee and Lower Back. No meds was taken. Body mass index (BMI) 30.7 kg/m2 30.7 kg/m2 [facility] ([place] [[place]] [facility]) Pt state He's here due to on-going Pain in Both Knee and Lower Back. No meds was taken. Body weight 184.375 [lb_av] 184.375 [lb_av] [facility] ([facility]) Pt state He's here due to on-going Pain in Both Knee and Lower Back. No meds was taken. Body height 65 [in_us] 65 [in_us] RADHA ([facility]) Pt state He's here due to on-going Pain in Both Knee and Lower Back. No meds was taken. Body temperature 97.9 [degF] 97.9 [degF] [place] AY ([facility]) Pt state He's here due to on-going Pain in Both Knee and Lower Back. No meds was taken. Heart rate rhythm 1 1 [place] ([facility]) Pt state He's here due to on-going Pain in Both Knee and Lower Back. No meds was taken. Heart rate 66 /min 66 /min [place] ([facility]) Pt state He's here due to on-going Pain in Both Knee and Lower Back. No meds was taken. Diastolic blood pressure 84 mm[Hg] 84 mm[Hg] RADHA ([facility]) Pt state He's here due to on-going Pain in Both Knee and Lower Back. No meds was taken. Systolic blood pressure 156 mm[Hg] 156 mm[Hg] [facility] ([facility]) Pt state He's here due to on-going Pain in Both Knee and Lower Back. No meds was taken. Oxygen saturation in Arterial 100 % 100 % [place] ([facility] blood by Pulse oximetry [facility]) Pt state He's here due to on-going Pain in Both Knee and Lower Back. No meds was taken. PhenX - pain, abdominal - type and 10 1 0 RADHA ([facility]) Pt state He's here due to on-going Pain in Both Knee and Lower Back. No meds was taken. Body height 65 [in_us] 65 [in_us] RADHA ([facility]) Patient is here to see the [employer]. PhenX - pain, abdominal - type and 0 0 RADHA ([facility]) Patient is here to see the [employer]. Body surface area Derived from 1.89 m2 1.89 m2 RADHA ([facility]) Pt is here for 3 weeks of back pain and also he wants referral for podiatry Body mass index (BMI) 30.0 kg/m2 30.0 kg/m2 [facility] ([place] [[place]] [facility]) Pt is here for 3 weeks of back pain and also he wants referral for podiatry Body weight 180 [lb_av] 180 [lb_av] RADHA ([facility]) Pt is here for 3 weeks of back pain and also he wants referral for podiatry Body height 65 [in_us] 65 [in_us] RADHA ([facility]) Pt is here for 3 weeks of back pain and also he wants referral for podiatry Body temperature 97.9 [degF] 97.9 [degF] [facility] ([facility]) Pt is here for 3 weeks of back pain and also he wants referral for podiatry Heart rate 59 /min 59 /min RADHA ([facility]) Pt is here for 3 weeks of back pain and also he wants referral for podiatry Diastolic blood pressure 77 mm[Hg] 77 mm[Hg] RADHA ([facility]) Pt is here for 3 weeks of back pain and also he wants referral for podiatry Systolic blood pressure 124 mm[Hg] 124 mm[Hg] [facility] Pt is here for 3 weeks of back pain and also he wants referral for podiatry PhenX - pain, abdominal - type and 8 8 RADHA ([facility]) Pt is here for 3 weeks of back pain and also he wants referral for podiatry Body surface area Derived from 1.90 m2 1.90 m2 [place] ([facility]) Pt is here for follow up and difficult t o sleeping Body mass index (BMI) 30.1 kg/m2 30.1 kg/m2 [facility] ([place] [[place]] [facility]) Pt is here for follow up and difficult t o sleeping Body weight 181 [lb_av] 181 [lb_av] RADHA ([facility]) Pt is here for follow up and difficult t o sleeping Body height 65 [in_us] 65 [in_us] RADHA ([facility]) Pt is here for follow up and difficult t o sleeping Body temperature 97.5 [degF] 97.5 [degF] [facility] AY ([facility]) Pt is here for follow up and difficult t o sleeping Heart rate 69 /min 69 /min [place] ([facility]) Pt is here for follow up and difficult t o sleeping Diastolic blood pressure 83 mm[Hg] 83 mm[Hg] [place] ([facility]) Pt is here for follow up and difficult t o sleeping Systolic blood pressure 150 mm[Hg] 150 mm[Hg] [facility] ([facility]) Pt is here for follow up and difficult t o sleeping PhenX - pain, abdominal - type and 0 0 [place] ([facility]) Pt is here for follow up and difficult t o sleeping Body surface area Derived from 1.90 m2 1.90 m2 [place] ([facility]) Pt is here for follow up. and Medicatio n Refill. Body mass index (BMI) 30.1 kg/m2 30.1 kg/m2 [facility] ([place] [facility] Pt is here for follow up. and Medicatio n Refill. Body weight 181 [lb_av] 181 [lb_av] [place] ([facility]) Pt is here for follow up. and Medicatio n Refill. Body height 65 [in_us] 65 [in_us] [place] ([facility]) Pt is here for follow up. and Medicatio n Refill. Body temperature 98 [degF] 98 [degF] [place] ([facility]) Pt is here for follow up. and Medicatio n Refill. Heart rate 82 /min 82 /min [place] ([facility]) Pt is here for follow up. and Medicatio n Refill. Diastolic blood pressure 71 mm[Hg] 71 mm[Hg] [place] ([facility]) Pt is here for follow up. and Medicatio n Refill. Systolic blood pressure 103 mm[Hg] 103 mm[Hg] [facility] ([facility]) Pt is here for follow up. and Medicatio n Refill. PhenX - pain, abdominal - type and 5 5 RADHA ([facility]) Pt is here for follow up. and Medicatio n Refill. Body surface area Derived from 1.88 m2 1.88 m2 [place] ([facility]) PT . is here for med refill , complaint about mouth pain X2 days Body mass index (BMI) 29.6 kg/m2 29.6 kg/m2 [facility] ([place] [[place]] [facility]) PT . is here for med refill , complaint about mouth pain X2 days Body weight 177.8 [lb_av] 177.8 [lb_av] [place] Y ([facility]) PT . is here for med refill , complaint about mouth pain X2 days Body height 65 [in_us] 65 [in_us] [place] ([facility]) PT . is here for med refill , complaint about mouth pain X2 days Body temperature 97.6 [degF] 97.6 [degF] [facility] AY ([facility]) PT . is here for med refill , complaint about mouth pain X2 days Respiratory rate 18 /min 18 /min [place] ([facility]) PT . is here for med refill , complaint about mouth pain X2 days Heart rate rhythm 1 1 ([facility]) PT . is here for med refill , complaint about mouth pain X2 days Heart rate 74 /min 74 /min [place] ([facility]) PT . is here for med refill , complaint about mouth pain X2 days Diastolic blood pressure 83 mm[Hg] 83 mm[Hg] [place] ([facility]) PT . is here for med refill , complaint about mouth pain X2 days Systolic blood pressure 106 mm[Hg] 106 mm[Hg] [facility] ([facility]) PT . is here for med refill , complaint about mouth pain X2 days PhenX - pain, abdominal - type and 9 9 RADHA ([facility]) PT . is here for med refill , complaint about mouth pain X2 days PhenX - pain, abdominal - type and 0 0 RADHA ([facility]) Pt c/o cough x 3 days and ongoing R ankl e/ foot pain. Body surface area Derived from 1.89 m2 1.89 m2 RADHA ([facility]) Pt c/o cough x 3 days and ongoing R ankl e/ foot pain. Body mass index (BMI) 29.8 kg/m2 29.8 kg/m2 GRE ENWAY ([place] [[place]) Pt c/o cough x 3 days and ongoing R ankl e/ foot pain. Body weight 178.8 [lb_av] 178.8 [lb_av] [place] Y ([facility]) Pt c/o cough x 3 days and ongoing R ankl e/ foot pain. Body height 65 [in_us] 65 [in_us] RADHA ([facility]) Pt c/o cough x 3 days and ongoing R ankl e/ foot pain. Body temperature 97.3 [degF] 97.3 [degF] [place] A[place] ([facility]) Pt c/o cough x 3 days and ongoing R ankl e/ foot pain. Respiratory rate 18 /min 18 /min [place] ([facility]) Pt c/o cough x 3 days and ongoing R ankl e/ foot pain. Heart rate rhythm 1 1 [place] Y ([facility]) Pt c/o cough x 3 days and ongoing R ankl e/ foot pain. Heart rate 93 /min 93 /min [place] ([facility]) Pt c/o cough x 3 days and ongoing R ankl e/ foot pain. Diastolic blood pressure 84 mm[Hg] 84 mm[Hg] RADHA ([facility]) Pt c/o cough x 3 days and ongoing R ankl e/ foot pain. Systolic blood pressure 138 mm[Hg] 138 mm[Hg] G REENW[place] ([facility]) Pt c/o cough x 3 days and ongoing R ankl e/ foot pain. PhenX - pain, abdominal - type and 0 0 RADHA ([facility]) Pt. is here because he need refill for e pilepsy problem. Body surface area Derived from 1.92 m2 1.92 m2 [place] ([facility]) Pt. is here because he need refill for e pilepsy problem. Body mass index (BMI) 31.1 kg/m2 31.1 kg/m2 [facility] [facility]) Pt. is here because he need refill for e pilepsy problem. Body weight 187 [lb_av] 187 [lb_av] RADHA ([facility]) Pt. is here because he need refill for e pilepsy problem. Body height 65 [in_us] 65 [in_us] [place] ([facility]) Pt. is here because he need refill for e pilepsy problem. Body temperature 98 [degF] 98 [degF] [place] ([facility]) Pt. is here because he need refill for e pilepsy problem. Heart rate 96 /min 96 /min [place] ([facility]) Pt. is here because he need refill for e pilepsy problem. Diastolic blood pressure 72 mm[Hg] 72 mm[Hg] [place] ([facility]) Pt. is here because he need refill for e pilepsy problem. Systolic blood pressure 139 mm[Hg] 139 mm[Hg] [facility] Pt. is here because he need refill for e pilepsy problem. PhenX - pain, abdominal - type and 0 0 [place] ([facility]) Pt is here for problems in the fingers. Body surface area Derived from 1.91 m2 1.91 m2 [place] ([facility]) Pt is here for problems in the fingers. Body mass index (BMI) 30.8 kg/m2 30.8 kg/m2 [facility] ([place] [facility]) Pt is here for problems in the fingers. Body weight 185 [lb_av] 185 [lb_av] RADHA ([facility]) Pt is here for problems in the fingers. Body height 65 [in_us] 65 [in_us] [place] ([facility]) Pt is here for problems in the fingers. Body temperature 97 [degF] 97 [degF] [place] ([facility]) Pt is here for problems in the fingers. Heart rate 71 /min 71 /min [place] ([facility]) Pt is here for problems in the fingers. Diastolic blood pressure 78 mm[Hg] 78 mm[Hg] [place] ([facility]) Pt is here for problems in the fingers. Systolic blood pressure 134 mm[Hg] 134 mm[Hg] [facility] ([facility]) Pt is here for problems in the fingers. 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 Body surface area Derived from 1.92 m2 1.92 m2 [place] ([facility]) Pt is here for follow Up. Body mass index (BMI) 31.1 kg/m2 31.1 kg/m2 [facility] [facility]) Pt is here for follow Up. Body weight 187 [lb_av] 187 [lb_av] [place] ([facility]) Pt is here for follow Up. Body height 65 [in_us] 65 [in_us] [place] ([facility]) Pt is here for follow Up. Body temperature 97.6 [degF] 97.6 [degF] [facility] ([facility]) Pt is here for follow Up. Heart rate 83 /min 83 /min [place] ([facility]) Pt is here for follow Up. Diastolic blood pressure 83 mm[Hg] 83 mm[Hg] [place] ([facility]) Pt is here for follow Up. Systolic blood pressure 138 mm[Hg] 138 mm[Hg] [facility] ([facility]) Pt is here for follow Up. PhenX - pain, abdominal - type and 9 9 RADHA ([facility]) Pt presents today for medication refills Body surface area Derived from 1.90 m2 1.90 m2 RADHA ([facility]) Pt presents today for medication refills Body mass index (BMI) 30.5 kg/m2 30.5 kg/m2 [place] ([place] [facility]Ratio[facility] Pt presents today for medication refills Body weight 183 [lb_av] 183 [lb_av] RADHA ([facility]) Pt presents today for medication refills Body height 65 [in_us] 65 [in_us] RADHA ([facility]) Pt presents today for medication refills Body temperature 98.2 [degF] 98.2 [degF] [facility] ([facility]) Pt presents today for medication refills Heart rate 99 /min 99 /min RADHA ([facility]) Pt presents today for medication refills Diastolic blood pressure 82 mm[Hg] 82 mm[Hg] RADHA ([facility]) Pt presents today for medication refills Systolic blood pressure 122 mm[Hg] 122 mm[Hg] [facility]) Pt presents today for medication refills Patient Treatment Plan of Care Planned Activity Planned Date Details Description Data Source (s) Alprazolam 2 MG Oral 01/03/2020 NEXTGEN ([facility] Tablet [Xanax] 12:00:00 AM [facility] Medical Ce nt) quetiapine 200 MG Oral 01/03/2020 NEXTG EN ([facility] Tablet [Seroquel] 12:00:00 AM [facility]) Alprazolam 2 MG Oral 12/06/2019 NEXTGEN ([facility] Tablet [Xanax] 12:00:00 AM [facility] Medical nt) quetiapine 200 MG Oral 12/06/2019 NEXTG EN ([facility] Tablet [Seroquel] 12:00:00 AM [facility]) Simvastatin 20 MG Oral 11/29/[address] ([place] Tablet 12:00:[address] [facility]) gabapentin 300 MG Oral 11/29/[address] ([place] Capsule 12:00:[address] [facility]) Keppra 500MG Oral Tablet 11/29/2019 [place] ([place] 12:00:[address] [facility]) Amlodipine 5 MG Oral 11/29/2019 [place] ([place] Tablet 12:00:[address] [facility]) Aspirin 81 MG Delayed 11/29/2019 GREENW AY ([place] Release Oral Tablet 12:00:00 AM [facility]) Alprazolam 2 MG Oral 11/08/2019 NEXTGEN ([facility] [Xanax] 12:00:00 AM [facility] Medical Ce nter) quetiapine 200 MG Oral 11/08/2019 NEXTG EN ([facility] Tablet [Seroquel] 12:00:00 AM [facility] Medical [place]) Glumetza 500MG Oral 10/24/2019 RADHA ([place] Tablet Extended [facility] [place] Ozempic (0.25 or 0.5 10/24/2019 GRE[place] Y ([place] MG/DOSE) Subcutaneous 12:00:00 AM [facility] Pen-injector Center ) Lancets Miscellaneous 10/23/2019 GREENW AY ([place] 12:00:[address] [facility]) Blood Glucose Test In 10/23/2019 GREENW AY ([place] Vitro Strip 12:00:[address] [facility]) quetiapine 200 MG Oral 10/10/2019 NEXTG EN ([facility] Tablet [Seroquel] 12:00:00 AM [facility] Medical [place]) Alprazolam 2 MG Oral 10/10/2019 NEXTGEN ([facility] [Xanax] 12:00:00 AM ED Medical Ce nter) Alprazolam 2 MG Oral 09/15/2019 NEXTGEN ([facility] [Xanax] 12:00:00 AM ED Medical Ce nter) quetiapine 200 MG Oral 09/15/2019 NEXTG EN ([facility] [Seroquel] 12:00:00 AM [facility] Medical [place]) Amlodipine 5 MG Oral 09/08/2019 [place] Y ([place] Tablet 12:00:[address] [facility]) Aspirin 81 MG Delayed 09/08/2019 GREENW AY ([place] Release Oral Tablet 12:00:00 AM [facility]) [place] 3 1000MG Oral 09/08/2019 RADHA ([place] Capsule 12:00:[address] [facility]) Naproxen 375 MG Oral 09/08/2019 [place] Y ([place] Tablet 12:00:[address] [facility]) Lidocaine 5% External 09/08/2019 GREENW AY ([place] Patch 12:00:[address] [facility]) Aspirin 81 MG Delayed 09/08/2019 GREENW AY ([place] Release Oral Tablet 12:00:00 AM [facility]) Lidocaine 5% External 09/08/2019 GREENW AY ([place] Patch 12:00:[address] [facility]) Naproxen 375 MG Oral 09/08/2019 [place] Y ([place] Tablet 12:00:[address] [facility]) Amlodipine 5 MG Oral 09/08/2019 [place] Y ([place] Tablet 12:00:[address] [facility]) Keppra 500MG Oral Tablet 09/08/2019 [place] ([place] 12:00:[address] [facility]) Ozempic (0.25 or 0.5 09/08/2019 [place] Y ([place] MG/DOSE) Subcutaneous 12:00:00 AM EDT [facility] Pen-injector Center ) Simvastatin 20 MG Oral 09/08/[address] ([place] Tablet 12:00:[address] [facility]) [place] 3 1000MG Oral 09/08/2019 RADHA ([place] Capsule 12:00:[address] [facility]) [place] 3 1000MG Oral 09/08/2019 RADHA ([place] Capsule 12:00:[address] [facility]) Metformin hydrochloride 09/08/2019 GREE NW[place] ([place] 850 MG Oral Tablet 12:00:00 AM [facility]) Insulin Syringe-Needle 09/08/[address] ([place] U-100 31G X 1/4"0.3 ML 12:00:00 AM [facility] Miscellaneous Center) Alcohol Pads 70% 09/08/2019 RADHA ([facility] [place] 12:00:[address] [facility]) Alprazolam 2 MG Oral 08/16/2019 NEXTGEN ([facility] [Xanax] 12:00:00 AM EDT Medical Ce nter) quetiapine 200 MG Oral 08/16/2019 NEXTG EN ([facility] [Seroquel] 12:00:00 AM [facility] Medical [place]) gabapentin 300 MG Oral 07/27/[address] ([place] Capsule 12:00:[address] [facility]) quetiapine 200 MG Oral 07/18/2019 NEXTG EN ([facility] [Seroquel] 12:00:00 AM [facility] Medical [place]) Alprazolam 2 MG Oral 07/18/2019 NEXTGEN ([facility] [Xanax] 12:00:00 AM EDT Medical Ce nter) Ozempic (0.25 or 0.5 06/29/2019 GREENWA Y ([place] MG/DOSE) Subcutaneous 12:00:00 AM EDT [facility] Pen-injector Center ) Lancets Miscellaneous 06/29/2019 GREENW AY ([place] 12:00:[address] [facility]) Blood Glucose Test In 06/29/2019 GREENW AY ([place] Vitro Strip 12:00:[address] [facility]) Insulin Syringe-Needle 06/29/[address] ([place] U-100 31G X 1/4"0.3 ML 12:00:00 [facility] [place] Glumetza 500MG Oral 06/29/2019 RADHA ([place] Tablet Extended Release [facility] Amlodipine 5 MG Oral 06/29/2019 GREEN[place] Y ([place] Tablet 12:00:[address] [facility]) Aspirin 81 MG Delayed 06/29/2019 GREEN[place] AY ([place] Release Oral [facility] Keppra 500MG Oral Tablet 06/29/2019 [place] ([place] 12:00:[address] [facility]) Simvastatin 20 MG Oral 06/29/[address] ([place] Tablet 12:00:[address] [facility]) Tylenol 8 Hour Arthritis 06/26/2019 [place] ([place] Pain 650MG Oral Tablet 12:00:00 AM [facility] Extended Release [place]) quetiapine 200 MG Oral 06/20/2019 NEXTG EN ([facility] [Seroquel] 12:00:00 AM [facility] Medical [place]) Alprazolam 2 MG Oral 06/20/2019 NEXTGEN ([facility] [Xanax] 12:00:00 AM [facility] Medical Ce nter) Blood Glucose Test In 06/05/2019 GREENW AY ([place] Vitro Strip 12:00:00 AM [facility]) Amlodipine 5 MG Oral 06/05/2019 [place] Y ([place] Tablet 12:00:00 AM [facility]) Keppra 500MG Oral Tablet 06/05/2019 [place] ([place] 12:00:00 AM [facility]) Aspirin 81 MG Delayed 06/05/2019 GREENW AY ([place] Release Oral Tablet 12:00:00 AM [facility]) Glumetza 1000MG Oral 06/05/2019 [place] Y ([place] Tablet Extended Release 12:00:00 AM [place] [id number] Hour [place]) Simvastatin 20 MG Oral 06/05/[address] ([place] Tablet 12:00:00 AM [facility]) Ozempic (0.25 or 0.5 06/05/2019 [place] Y ([place] MG/DOSE) Subcutaneous 12:00:00 AM [facility] Solution Pen-injector Center ) Glumetza 500MG Oral 06/05/2019 RADHA ([place] Tablet Extended Release 12:00:00 AM [place] [id number] Hour [place]) Insulin Syringe-Needle 06/05/[address] ([place] U-100 31G X 1/4"0.3 ML 12:00:00 AM [facility] Miscellaneous [place]) Lancets Miscellaneous 06/05/2019 [place] AY ([place] 12:00:00 AM [facility]) Alprazolam 2 MG Oral 05/23/2019 NEXTGEN ([facility] [Xanax] 12:00:00 AM [facility] Medical Ce nter) quetiapine 200 MG Oral 05/23/2019 NEXTG EN ([facility] [Seroquel] 12:00:00 AM [facility] Medical [place]) Glumetza 1000MG Oral 05/02/2019 [place] Y ([place] Tablet Extended Release 12:00:00 AM [facility] 24 Hour Center) Alprazolam 2 MG Oral 04/25/2019 NEXTGEN ([facility] [Xanax] 12:00:00 AM [facility] Medical Ce nter) quetiapine 200 MG Oral 04/25/2019 NEXTG EN ([facility] [Seroquel] 12:00:00 AM [facility] Medical [place]) quetiapine 200 MG Oral 04/25/2019 NEXTG EN ([facility] [Seroquel] 12:00:00 AM [facility] Medical [place]) Alprazolam 2 MG Oral 03/28/2019 NEXTGEN ([facility] [Xanax] 12:00:00 AM [facility] Medical nter) quetiapine 200 MG Oral 03/28/2019 NEXTG EN ([facility] Tablet [Seroquel] 12:00:00 AM [facility] Medical [place]) Amlodipine 5 MG Oral 03/20/2019 [place] Y ([place] Tablet 12:00:00 AM [facility]) Metformin hydrochloride 03/20/2019 G[place] NW[place] ([place] 1000 MG Oral Tablet 12:00:00 AM [facility]) Ozempic (0.25 or 0.5 03/20/2019 GREENMICHAEL Y ([place] MG/DOSE) Subcutaneous 12:00:[address] [facility] Pen-injector Center ) Simvastatin 20 MG Oral 03/20/[address] ([place] Tablet 12:00:00 AM [facility]) Keppra 500MG Oral Tablet 03/20/2019 [place] ([place] 12:00:00 AM [facility]) Alprazolam 2 MG Oral 02/28/2019 NEXTGEN ([facility] [Xanax] 12:00:00 AM [facility] Medical nter) quetiapine 200 MG Oral 02/28/2019 NEXTG EN ([facility] [Seroquel] 12:00:00 AM [facility] Medical [place]) Alprazolam 2 MG Oral 02/17/2019 NEXTGEN ([facility] [Xanax] 12:00:00 AM [facility] Medical Ce nter) quetiapine 200 MG Oral 02/17/2019 NEXTG EN ([facility] Tablet [Seroquel] 12:00:00 AM [facility] Medical [place]) Keppra 500MG Oral Tablet 02/01/2019 [place] ([place] 12:00:[address] [facility]) Simvastatin 20 MG Oral 02/01/[address] ([place] Tablet 12:00:[address] [facility]) Aspirin 81 MG Delayed 02/01/2019 GREENW AY ([place] Release Oral Tablet 12:00:00 AM [facility]) Amlodipine 5 MG Oral 02/01/2019 [place] Y ([place] Tablet 12:00:[address] [facility]) Diclofenac Sodium 0.01 02/01/[address] ([place] MG/MG Topical Gel 12:00:00 AM [facility]) Tylenol Extra Strength 02/01/[address] ([place] 500MG Oral Tablet 12:00:00 AM [facility]) Ozempic (0.25 or 0.5 02/01/2019 [place] Y ([place] MG/DOSE) Subcutaneous 12:00:00 AM [facility] Pen-injector Center ) Metformin hydrochloride 02/01/2019 G[place] NWAY ([place] 1000 MG Oral Tablet 12:00:00 AM [facility]) quetiapine 200 MG Oral 01/16/2019 NEXTG EN ([facility] Tablet [Seroquel] 12:00:00 AM [facility] Medical Center) Alprazolam 2 MG Oral 01/16/2019 NEXTGEN ([facility] Tablet [Xanax] 12:00:00 AM ED Medical Ce nter) Alprazolam 2 MG Oral 01/09/2019 NEXTGEN ([facility] Tablet [Xanax] 12:00:00 AM [facility] Medical Ce nter) quetiapine 200 MG Oral 12/21/2018 NEXTG EN ([facility] Tablet [Seroquel] 12:00:00 AM [facility] Medical [place]) Alprazolam 2 MG Oral 12/21/2018 NEXTGEN ([facility] Tablet [Xanax] 12:00:00 AM [facility] Medical Ce nt) Metoprolol Tartrate 25 MG 12/15/2018 [place] E[place] ([place] Oral Tablet 12:00:[address] [facility]) Aspirin 81 MG Delayed 12/15/2018 GRE[place] AY ([place] Release Oral Tablet 12:00:00 AM [facility]) Easy Trak Blood Glucose 12/15/2018 GREE NWAY ([place] Test In Vitro Strip 12:00:00 AM [facility]) Voltaren 1% Transdermal 12/15/2018 G[place] ([place] Gel 12:00:[address] [facility]) Menthol 0.05 MG/MG 12/15/2018 RADHA ([place] Transdermal Patch 12:00:00 AM [facility]) Menthol 0.05 MG/MG 12/15/2018 RADHA ([place] Transdermal Patch 12:00:00 AM [facility]) Voltaren 1% Transdermal 12/15/2018 G[place] NW[place] ([place] Gel 12:00:[address] [facility]) Simvastatin 20 MG Oral 12/15/[address] ([place] Tablet 12:00:[address] [facility]) Keppra 500MG Oral Tablet 12/15/2018 [place] ([place] 12:00:[address] [facility]) Glipizide 10 MG Oral 12/15/2018 [place] Y ([place] Tablet 12:00:[address] [facility]) Janumet 50-1000MG Oral 12/15/[address] ([place] Tablet 12:00:[address] [facility]) Alprazolam 2 MG Oral 11/23/2018 NEXTGEN ([facility] [Xanax] 12:00:00 AM [facility] Medical Ce nt) quetiapine 200 MG Oral 11/23/2018 NEXTG EN ([facility] Tablet [Seroquel] 12:00:00 AM [facility]) Glipizide 10 MG Oral 11/21/2018 [place] Y ([place] Tablet 12:00:[address] [facility]) Keppra 500MG Oral Tablet 11/21/2018 [place] ([place] 12:00:[address] [facility]) Metoprolol Tartrate 25 MG 11/21/2018 [place] ([place] Oral Tablet 12:00:[address] [facility]) Simvastatin 20 MG Oral 11/21/[address] ([place] Tablet 12:00:[address] [facility]) Janumet 50-1000MG Oral 11/21/[address] ([place] Tablet 12:00:[address] [facility]) Alprazolam 2 MG Oral 10/26/2018 NEXTGEN ([facility] [Xanax] 12:00:00 AM [facility] Medical Ce nt) quetiapine 200 MG Oral 10/26/2018 NEXTG EN ([facility] Tablet [Seroquel] 12:00:00 AM [facility]) Lisinopril 10 MG Oral 10/18/2018 [place] AY ([place] Tablet 12:00:[address] [facility]) Metoprolol Tartrate 25 MG 10/18/2018 [place] ([place] Oral Tablet 12:00:[address] [facility]) Aspirin 81 MG Delayed 10/18/2018 GREEN[place] AY ([place] Release Oral Tablet 12:00:00 AM [facility]) Easy Trak Blood Glucose 10/18/2018 BASILIO[place] NWAY ([place] Test In Vitro Strip 12:00:00 AM [facility]) Keppra 500MG Oral Tablet 10/18/2018 [place] ([place] 12:00:[address] [facility]) Lancets Miscellaneous 10/18/2018 [place] AY ([place] 12:00:[address] [facility]) Alprazolam 2 MG Oral 09/28/2018 NEXTGEN ([facility] Tablet [Xanax] 12:00:00 AM [facility] Medical Ce nter) quetiapine 200 MG Oral 09/28/2018 NEXTG EN ([facility] Tablet [Seroquel] 12:00:00 AM [facility]) Macrobid 100MG Oral 09/13/2018 RADHA ([place] Capsule 12:00:[address] [facility]) Simvastatin 20 MG Oral 09/13/[address] ([place] Tablet 12:00:[address] [facility]) Keppra 500MG Oral Tablet 09/13/2018 [place] ([place] 12:00:[address] [facility]) Janumet 50-1000MG Oral 09/13/[address] ([place] Tablet 12:00:[address] [facility]) Glipizide 10 MG Oral 09/13/2018 [place] Y ([place] Tablet 12:00:[address] [facility]) Alprazolam 2 MG Oral 08/31/2018 NEXTGEN ([facility] Tablet [Xanax] 12:00:00 AM [facility] Medical Ce nter) quetiapine 200 MG Oral 08/31/2018 NEXTG EN ([facility] Tablet [Seroquel] 12:00:00 AM [facility]) cetirizine hydrochloride 08/26/2018 [place] ([place] 10 MG Oral Tablet 12:00:00 AM [facility]) Flonase Allergy Relief 08/26/[address] ([place] 50MCG/ACT Nasal 12:00:00 AM [facility]) Naproxen 500 MG Oral 08/26/2018 GREEN[place] Y ([place] Tablet 12:00:[address] [facility]) Janumet 50-1000MG Oral 08/26/[address] ([place] Tablet 12:00:[address] [facility]) Glipizide 10 MG Oral 08/26/2018 GREEN[place] Y ([place] Tablet 12:00:[address] [facility]) Guaifenesin 20 MG/ML Oral 08/26/2018 [place] ([place] Solution 12:00:[address] [facility]) Keppra 500MG Oral Tablet 08/12/2018 [place] ([place] 12:00:[address] [facility]) Aspirin 81 MG Delayed 08/12/2018 GREEN[place] AY ([place] Release Oral Tablet 12:00:00 AM [facility]) Metoprolol Tartrate 25 MG 08/12/2018 [place] ([place] Oral Tablet 12:00:[address] [facility]) Lancets Miscellaneous 08/11/2018 GREEN[place] AY ([place] 12:00:[address] [facility]) Augmentin 875-125MG Oral 08/11/2018 [place] ([place] Tablet 12:00:[address] [facility]) Blood Glucose System [place] 08/11/2018 [place] ([place] Kit 12:00:[address] [facility]) Easy Trak Blood Glucose 08/11/2018 GREE NWAY ([place] Test In Vitro Strip 12:00:00 AM [facility]) Alprazolam 2 MG Oral 08/03/2018 NEXTGEN ([facility]t [Xanax] 12:00:00 AM [facility] Medical Ce nt) quetiapine 200 MG Oral 08/03/2018 NEXTG EN ([facility] [Seroquel] 12:00:00 AM [facility]) Glyburide 5 MG / 07/18/2018 RADHA (M [place] Metformin hydrochloride 12:00:00 AM EDT [facility] 500 MG Oral Tablet Center) Lisinopril 10 MG Oral 07/18/2018 GREENW AY ([place] Tablet 12:00:[address] [facility]) Metformin hydrochloride 07/18/2018 GREE NWAY ([place] 1000 MG Oral Tablet 12:00:00 AM [facility]) Metoprolol Tartrate 25 MG 07/18/2018 GR EENWAY ([place] Oral Tablet 12:00:[address] [facility]) Simvastatin 20 MG Oral 07/18/[address] ([place] Tablet 12:00:[address] [facility]) Tylenol 8 Hour Arthritis 07/18/2018 GRE ENWAY ([place] Pain 650MG Oral Tablet 12:00:[address] [facility] Extended Release Center) quetiapine 200 MG Oral 07/06/2018 NEXTG EN ([place] Tablet [Seroquel] 12:00:00 AM [facility]) Alprazolam 2 MG Oral 07/06/2018 NEXTGEN ([facility] Tablet [Xanax] 12:00:00 AM [facility] Medical Ce nter) Diclofenac Sodium 0.01 02/16/2018 NEXTG EN ([facility] MG/MG Topical Gel 12:00:00 AM [facility]) [Voltaren] Tylenol 8 Hour Arthritis 11/27/2016 GRE ENWAY ([place] Pain 650MG Oral Tablet 12:00:[address] [facility] Extended Release [place]) Tamsulosin hydrochloride 08/31/2013 NEX TGEN ([facility] 0.4 MG Oral Capsule 12:00:00 AM EDT [facility] Center) [Flomax] Glyburide 5 MG / 08/31/2013 [facility]GEN ([place] [facility] [place] [facility]t [Glucovance] Metoprolol Tartrate 25 MG 08/31/2013 NE XTGEN ([facility] Oral Tablet 12:00:00 AM EDT Medical Cent er) Omeprazole 40 MG Delayed 08/31/2013 NEX TGEN ([facility] Release Oral Capsule 12:00:00 AM EDT [facility]) Phenytoin sodium 100 MG 08/31/2013 NEXT GEN ([facility] Extended Release Oral 12:00:00 AM EDT Med ical [place]) Capsule Alprazolam 2 MG Oral 08/24/2013 NEXTGEN ([facility] Tablet [Xanax] 12:00:00 AM EDT Medical Ce nter) Naproxen 500 MG Oral 07/24/2013 GREENWA Y ([place] Tablet 12:00:[address] [facility]) Lac-Hydrin 12% EX LOTN 06/21/[address] ([place] 12:00:[address] [facility]) Zithromax 250MG OR TABS 06/05/2013 GREE NWAY ([place] 12:00:00 AM [facility]) Claritin 10MG OR TABS 02/02/2013 [place] AY ([place] 12:00:[address] [facility]) Flonase 50MCG/ACT NA SUSP 02/02/2013 GR EENWAY ([place] 12:00:[address] [facility]) Clarithromycin 500 MG 02/02/2013 GRE[place] AY ([place] Oral Tablet 12:00:[address] [facility]) Dilantin 100MG OR CAPS 09/01/[address] ([place] 12:00:[address] [facility]) Metoprolol Tartrate 25 MG 09/01/2012 GR EENWAY ([place] Oral Tablet 12:00:00 AM EDT [facility]) Benicar HCT 40-12.5MG OR 09/01/2012 GRE EN[place]AY ([place] TABS 12:00:[address] [facility]) Glucovance 5-500MG OR 09/01/2012 [facility] A[facility] ([place] TABS 12:00:[address] [facility]) Metoprolol Tartrate 25 MG 12/22/2011 GR E[place]AY ([place] Oral Tablet 12:00:[address] [facility]) Benicar HCT 40-12.5MG OR 12/22/2011 GRE EN[place]AY ([place] TABS 12:00:[address] [facility]) Glucovance 5-500MG OR 11/25/2011 GRE[place] AY ([place] TABS 12:00:[address] [facility]) Ecotrin Low Strength 81 11/09/2011 GREE NWAY ([place] MG TBEC 12:00:[address] [facility]) Metoprolol Tartrate 25 MG 11/09/2011 GR EENWAY ([place] Oral Tablet 12:00:[address] [facility]) Glucovance 5-500MG OR 11/09/2011 GRE[place] AY ([place] TABS 12:00:[address] [facility]) Dilantin 100MG OR CAPS 11/09/[address] ([place] 12:00:[address] [facility]) Benicar HCT 40-12.5MG OR 11/09/2011 GRE ENWAY ([place] TABS 12:00:[address] [facility]) quetiapine 200 MG Oral [facility] Alprazolam 2 MG Oral [facility]
[2020-01-15] MEDS: SODIUM CHLORIDE 1,000 ML IV SCH (20:35)
[2020-01-15] MEDS: ATORVASTATIN CA 40 MG TABLET (FP) PO SCH (22:06)
[2020-01-15] MEDS: METOPROLOL TARTRATE 50 MG TABLET (FP) PO SCH (22:06)
[2020-01-15] MEDS: RANOLAZINE E.R. 500 MG TABLET (FP) PO SCH (22:07)
[2020-01-15] MEDS: MECLIZINE HCL 25 MG TABLET (FP) PO SCH (22:08)
[2020-01-15] MEDS: levETIRAcetam 500 MG TABLET (FP) PO SCH (22:09)
[2020-01-15 23:16] VITALS: BMI 29.7
[2020-01-16] MEDS: MECLIZINE HCL 25 MG TABLET (FP) PO SCH ×2 (05:53→13:20)
[2020-01-16] MEDS ORDERED: INSULIN SLIDING SCALE (NOVOLOG) 1 VIAL SQ SCH (07:00)
[2020-01-16 08:37] LABS: HEMATOCRIT 41.9 % (35.4-49); HEMOGLOBIN 14.1 GM/dL (11.7-16.9); MCH 28.2 pg (25.7-33.7); MCHC 33.7 g/dl (32.0-35.9); MEAN CELL VOLUME 83.7 fl (80-96); MEAN PLT VOLUME 9.2 fl (7.5-11.1); PLATELET COUNT 199 K/MM3 (134-434); RDW 13.2 % (11.9-15.9); WHITE BLOOD COUNT 6.5 K/mm3 (4.0-10.0)
[2020-01-16 08:56] LABS: BLOOD UREA NITROGEN 15.2 mg/dL (7-18); CALCIUM 9.2 mg/dL (8.5-10.1); MAGNESIUM 1.7 mg/dL (1.8-2.4); POTASSIUM 4.5 mmol/L (3.5-5.1)
[2020-01-16] MEDS: ASPIRIN 325 MG ENTERIC COATED TABLET (FP) PO SCH (09:33)
[2020-01-16] MEDS: levETIRAcetam 500 MG TABLET (FP) PO SCH ×2 (09:34→21:53)
[2020-01-16] MEDS: FOLIC ACID 1 MG TABLET (FP) PO SCH (09:34)
[2020-01-16] MEDS: METOPROLOL TARTRATE 50 MG TABLET (FP) PO SCH ×2 (09:35→21:53)
[2020-01-16] MEDS: RANOLAZINE E.R. 500 MG TABLET (FP) PO SCH ×2 (09:35→21:53)
[2020-01-16] MEDS ORDERED: metFORMIN HCL 500 MG TABLET (FP) PO SCH (10:49)
--- NOTE | 2020-01-16 10:56 | PN ---
Progress Note, Physician Chief Complaint: AMS Uncontrolled diabetes Mellitus ELIZABETH History of Present Illness: 69 year old Bahraini speaking male with a past medical history of hypertension, asthma, hyperlipidemia, CVA, and CAD x1 with prior stent who presented to the ER from physicians office as he was noted to be confused in the waiting area and was asking inappropriate questions. Patient reported he receives a weekly shot of insulin on Sundays and he missed this past week and is unsure why. Patient also reports having blood in his stool and bilateral leg pain. He denies chest pain, shortness of breath, fever, chills, abdominal pain, nausea or vomiting or leg swelling. - Current Medication List Current Medications: Active Medications Aspirin (Ecotrin -) 325 mg PO DAILY [facility] Last Admin: 01/16/20 09:33 Dose: 325 mg Documented by: Atorvastatin Calcium (Lipitor -) 40 mg PO HS [facility] Last Admin: 01/15/20 22:06 Dose: 40 mg Documented by: Folic Acid (Folic Acid -) 1 mg PO DAILY [facility] Last Admin: 01/16/20 09:34 Dose: 1 mg Documented by: Sodium Chloride (Normal Saline -) 1,000 mls @ 75 mls/hr IV ASDIR [facility] Last Admin: 01/15/20 20:35 Dose: 75 mls/hr Documented by: Insulin Aspart (Novolog Vial Sliding Scale -) 1 vial SQ TIDAC [facility]; Protocol Levetiracetam (Keppra -) 500 mg PO BID [facility] Last Admin: 01/16/20 09:34 Dose: 500 mg Documented by: Meclizine HCl (Antivert -) 25 mg PO TID [facility] Last Admin: 01/16/20 05:53 Dose: 25 mg Documented by: Metformin HCl (Glucophage -) 500 mg PO BID@0700,1630 [facility] Metoprolol Tartrate (Lopressor -) 50 mg PO BID [facility] Last Admin: 01/16/20 09:35 Dose: 50 mg Documented by: Quetiapine Fumarate (Seroquel Xr -) 150 mg PO DAILY [facility] Ranolazine (Ranexa -) 500 mg PO BID [facility] Last Admin: 01/16/20 09:35 Dose: 500 mg Documented by: Sitagliptin Phosphate (Januvia -) 50 mg PO DAILY@0700 [facility] - Objective Vital Signs: Vital Signs Temperature 98.2 F 01/16/20 09:07 Pulse Rate 78 01/16/20 09:07 Respiratory Rate 18 01/16/20 09:07 Blood Pressure 148/96 01/16/20 09:07 O2 Sat by Pulse Oximetry (%) 97 01/16/20 09:07 Constitutional: Yes: Well Nourished, No Distress, Calm Cardiovascular: Yes: Regular Rate and Rhythm Respiratory: Yes: Regular, CTA Bilaterally Gastrointestinal: Yes: Normal Bowel Sounds, Soft Genitourinary: Yes: WNL Musculoskeletal: Yes: Muscle Weakness Extremities: Yes: WNL Edema: No Peripheral Pulses WNL: Yes Neurological: Yes: Alert, Oriented Psychiatric: Yes: Alert, Oriented Labs: CBC, BMP 01/16/20 07:36 01/16/20 07:36 Problem List - Problems (1) ELIZABETH (acute kidney injury) Assessment/Plan: -Improved -Continue IVF -Monitor Cr Problems reviewed: Yes Code(s): N17.9 - ACUTE KIDNEY FAILURE, UNSPECIFIED (2) Altered mental status Assessment/Plan: -CT head unremarkable -Neurology consult -MRI brain without contrast -Check B12 + RPR -TSH mildly hypo, check FT4 Problems reviewed: Yes Code(s): R41.82 - ALTERED MENTAL STATUS, UNSPECIFIED Qualifiers: Altered mental status type: disorientation Qualified Code(s): R41.0 - Disorientation, unspecified (3) DM Diabetes mellitus type 2 Assessment/Plan: -A1c at 9.6 -BGM AC HS -Diabetic low sodium diet -ISS -May do better with oral hypoglycemics -Will started metformin 1000 mg po bid + Januvia 50 mg po daily to promote medication adherence Problems reviewed: Yes Code(s): E11.9 - TYPE 2 DIABETES MELLITUS WITHOUT COMPLICATIONS Assessment/Plan See problem list
[2020-01-16] MEDS: SODIUM CHLORIDE 1,000 ML IV SCH ×2 (11:13→21:22)
[2020-01-16] MEDS: sitaGLIPtin PHOSPHATE 50 MG TABLET PO SCH (12:56)
[2020-01-16] MEDS: metFORMIN HCL 500 MG TABLET (FP) PO SCH ×2 (12:56→17:08)
[2020-01-16] MEDS: INSULIN SLIDING SCALE (NOVOLOG) 1 VIAL SQ SCH ×2 (13:02→16:36)
[2020-01-16] MEDS ORDERED: ACETAMINOPHEN 325 MG TABLET (FP) PO PRN (18:03)
[2020-01-16] MEDS ORDERED: ACETAMINOPHEN 325 MG TABLET (FP) PO ONE (18:06)
--- NOTE | 2020-01-16 18:17 | CONSULT ---
Consult - text type - Consultation Consultation Note: NEUROLOGY CONSULTATION is greatly appreciated: Events reviewed and discussed with RN. Patient examined. Now 69 yo this RH man now lives in assisted residence. Previously lived with his sister when I lst saw him in 2019. PMH of HTN, DM,Chol, CAD and CVA in distant past with chronic left frontal encephalomalciaon CT and MRI. Known to have Migraine, diabetic peripheral neuropathy, and chronic nocturnal leg pains, now worse. Early extrapyramidal features noted on my exam of 09/20/18. Current meds include: Meclizine 25 TID; Quetiapine XR150; Aspirin 325; Atorvastatin; Metoprolol; Ranexa; Keppra 500 BID; Gabapentin 300 BID PRN (?). Now admitted from PMD clinic with confusion and increased leg pains. CT/MRI (reviewed): Atrophy with microvascular changes and large left frontal encephalomalacia. Duplex: Non-obstructive plaque. TSH= 5.74 LIDA: No bruits. No head injury. NEURO: Awake, alert, cooperative. Sparse speech. Follows most commands Full stinson and EOM's. No facial. gag OK Motor: No drift. Normal strength. Decreased KJ's and absent AJ's. Plantars silent. + Rest tremor. ++ Cogwheel rigidity Coord: No FTN dystaxia Sensory: Decreased vibration in feet. Romberg + Gait: Wide-based, flexed, Festinating. IMP: Clear progression of extrapyramidal signs sine 09/28- Likely Parkinson's disease. 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 SUGGEST: D/C meclizine- c/o "dizziness" most certainly represent progressive gait instability. Will also effect memory adversely and cause confusion. Begin L-Dopa as Sinemet CR 25/100 TID with meals. Once stable on L-Dopa would add a dopamine agonist (ie: pramipexole) for leg pain. Neuro f/u as out patient. Thank you very much, Anil Causey MD
[2020-01-16] MEDS: PRAMIPEXOLE DIHYDROCHLORIDE 0.25 MG TABLET PO SCH (21:53)
[2020-01-16] MEDS: ATORVASTATIN CA 40 MG TABLET (FP) PO SCH (21:53)
[2020-01-17] MEDS: INSULIN SLIDING SCALE (NOVOLOG) 1 VIAL SQ SCH ×3 (06:27→17:21)
[2020-01-17] MEDS: SODIUM CHLORIDE 1,000 ML IV SCH (06:28)
[2020-01-17] MEDS: metFORMIN HCL 500 MG TABLET (FP) PO SCH ×2 (06:28→17:31)
[2020-01-17] MEDS: sitaGLIPtin PHOSPHATE 50 MG TABLET PO SCH (06:28)
[2020-01-17] MEDS: ASPIRIN 325 MG ENTERIC COATED TABLET (FP) PO SCH (09:53)
[2020-01-17] MEDS: METOPROLOL TARTRATE 50 MG TABLET (FP) PO SCH ×2 (09:54→21:42)
[2020-01-17] MEDS: RANOLAZINE E.R. 500 MG TABLET (FP) PO SCH ×2 (09:54→21:41)
[2020-01-17] MEDS: levETIRAcetam 500 MG TABLET (FP) PO SCH ×2 (09:54→21:44)
[2020-01-17] MEDS: FOLIC ACID 1 MG TABLET (FP) PO SCH (09:54)
[2020-01-17] MEDS ORDERED: INSULIN (NOVOLOG) ASPART 100 UNITS/ML 10ML VIAL ONE (10:54)
[2020-01-17] MEDS ORDERED: ACETAMINOPHEN 500 MG TABLET (FP) PO PRN (11:01)
--- NOTE | 2020-01-17 11:01 | PN ---
Progress Note, Physician Chief Complaint: AMS Uncontrolled diabetes Mellitus ELIZABETH History of Present Illness: 69 year old Serbian speaking male with a past medical history of hypertension, asthma, hyperlipidemia, CVA, and CAD x1 with prior stent who presented to the ER from physicians office as he was noted to be confused in the waiting area and was asking inappropriate questions. Patient reported he receives a weekly shot of insulin on Sundays and he missed this past week and is unsure why. Patient also reports having blood in his stool and bilateral leg pain. He denies chest pain, shortness of breath, fever, chills, abdominal pain, nausea or vomiting or leg swelling. NAD Neurology consult appreciated Started on Sinemet BGM's improved on oral hypoglycemics - Current Medication List Current Medications: Active Medications Aspirin (Ecotrin -) 325 mg PO DAILY [facility] Last Admin: 01/17/20 09:53 Dose: 325 mg Documented by: Atorvastatin Calcium (Lipitor -) 40 mg PO [facility] Last Admin: 01/16/20 21:53 Dose: 40 mg Documented by: Carbidopa/Levodopa (Sinemet *Cr* 25/100 -) 1 combo PO TID@0900,1300,1830 [facility] Last Admin: 01/17/20 09:51 Dose: 1 combo Documented by: Folic Acid (Folic Acid -) 1 mg PO DAILY [facility] Last Admin: 01/17/20 09:54 Dose: 1 mg Documented by: Sodium Chloride (Normal Saline -) 1,000 mls @ 75 mls/hr IV ASDIR [facility] Last Admin: 01/17/20 06:28 Dose: 75 mls/hr Documented by: Insulin Aspart (Novolog Vial Sliding Scale -) 1 vial SQ TIDAC [facility]; Protocol Last Admin: 01/17/20 06:27 Dose: Not Given Documented by: Levetiracetam (Keppra -) 500 mg PO BID [facility] Last Admin: 01/17/20 09:54 Dose: 500 mg Documented by: Metformin HCl (Glucophage -) 1,000 mg PO BID@0700,1630 [facility] Last Admin: 01/17/20 06:28 Dose: 1,000 mg Documented by: Metoprolol Tartrate (Lopressor -) 50 mg PO BID [facility] Last Admin: 01/17/20 09:54 Dose: 50 mg Documented by: Pramipexole Dihydrochloride (Mirapex -) 0.25 mg PO [facility] Last Admin: 01/16/20 21:53 Dose: 0.25 mg Documented by: Quetiapine Fumarate (Seroquel Xr -) 150 mg PO DAILY [facility] Last Admin: 01/16/20 13:02 Dose: 150 mg Documented by: Ranolazine (Ranexa -) 500 mg PO BID [facility] Last Admin: 01/17/20 09:54 Dose: 500 mg Documented by: Sitagliptin Phosphate (Januvia -) 50 mg PO DAILY@0700 [facility] Last Admin: 01/17/20 06:28 Dose: 50 mg Documented by: - Objective Vital Signs: Vital Signs Temperature 97.6 F 01/17/20 06:00 Pulse Rate 84 01/17/20 10:00 Respiratory Rate 18 01/17/20 10:00 Blood Pressure 116/68 01/17/20 10:00 O2 Sat by Pulse Oximetry (%) 96 01/17/20 10:00 Constitutional: Yes: Well Nourished, No Distress, Calm Cardiovascular: Yes: Regular Rate and Rhythm Respiratory: Yes: Regular, CTA Bilaterally Gastrointestinal: Yes: Normal Bowel Sounds, Soft Genitourinary: Yes: WNL Musculoskeletal: Yes: Muscle Weakness Extremities: Yes: WNL Edema: No Peripheral Pulses WNL: Yes Neurological: Yes: Alert, Oriented Psychiatric: Yes: Alert, Oriented Labs: CBC, BMP 01/16/20 07:36 01/16/20 07:36 Problem List - Problems 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 -B12 + RPR normal -TSH mildly hypo, FT4 normal Problems reviewed: Yes Code(s): R41.82 - ALTERED MENTAL STATUS, UNSPECIFIED Qualifiers: Altered mental status type: disorientation Qualified Code(s): R41.0 - Disorientation, unspecified (3) DM Diabetes mellitus type 2 Assessment/Plan: -A1c at 9.6 -BGM AC HS -Diabetic low sodium diet -ISS -May do better with oral hypoglycemics -Continue metformin 1000 mg po bid + Januvia 50 mg po daily to promote medication adherence Problems reviewed: Yes Code(s): E11.9 - TYPE 2 DIABETES MELLITUS WITHOUT COMPLICATIONS (4) Parkinson disease Assessment/Plan: -Continue sinemet Problems reviewed: Yes Code(s): G20 - PARKINSON'S DISEASE (5) RLS (restless legs syndrome) Assessment/Plan: -Added pramipexole 0.25 mg po HS Problems reviewed: Yes Code(s): G25.81 - RESTLESS LEGS SYNDROME Assessment/Plan See problem list Used [employer] for guyanese interpretation, ID#[id number] to speak to patient. SNF in AM
[2020-01-17] MEDS: PRAMIPEXOLE DIHYDROCHLORIDE 0.25 MG TABLET PO SCH (21:44)
[2020-01-17] MEDS: ATORVASTATIN CA 40 MG TABLET (FP) PO SCH (21:45)
[2020-01-18] MEDS: INSULIN SLIDING SCALE (NOVOLOG) 1 VIAL SQ SCH ×2 (06:42→11:30)
[2020-01-18] MEDS: sitaGLIPtin PHOSPHATE 50 MG TABLET PO SCH (06:44)
[2020-01-18] MEDS: metFORMIN HCL 500 MG TABLET (FP) PO SCH (06:44)
[2020-01-18] MEDS: RANOLAZINE E.R. 500 MG TABLET (FP) PO SCH (10:13)
[2020-01-18] MEDS: levETIRAcetam 500 MG TABLET (FP) PO SCH (10:14)
[2020-01-18] MEDS: ASPIRIN 325 MG ENTERIC COATED TABLET (FP) PO SCH (10:14)
[2020-01-18] MEDS: METOPROLOL TARTRATE 50 MG TABLET (FP) PO SCH (10:14)
[2020-01-18] MEDS: FOLIC ACID 1 MG TABLET (FP) PO SCH (10:14)
--- NOTE | 2020-01-18 10:51 | DS ---
Physical Examination Vital Signs: Vital Signs Temperature 97.4 F L 01/18/20 06:58 Pulse Rate 68 01/18/20 06:58 Respiratory Rate 18 01/18/20 06:58 Blood Pressure 163/90 01/18/20 06:58 O2 Sat by Pulse Oximetry (%) 96 01/18/20 06:58 Findings/Remarks: 69 year old Syriac speaking male with a past medical history of hypertension, asthma, hyperlipidemia, CVA, and CAD x1 with prior stent who presented to the ER from physicians office as he was noted to be confused in the waiting area and was asking inappropriate questions. Patient reported he receives a weekly shot of insulin on Sundays and he missed this past week and is unsure why. Patient also reports having blood in his stool and bilateral leg pain. He denies chest pain, shortness of breath, fever, chills, abdominal pain, nausea or vomiting or leg swelling. 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 -B12 + RPR normal -TSH mildly hypo, FT4 normal Problems reviewed: Yes Code(s): R41.82 - ALTERED MENTAL STATUS, UNSPECIFIED Qualifiers: Altered mental status type: disorientation Qualified Code(s): R41.0 - Disorientation, unspecified (3) DM Diabetes mellitus type 2 Assessment/Plan: -A1c at 9.6 -BGM AC HS -Diabetic low sodium diet -ISS -May do better with oral hypoglycemics -Continue metformin 1000 mg po bid + Januvia 50 mg po daily to promote medicati on adherence Problems reviewed: Yes Code(s): E11.9 - TYPE 2 DIABETES MELLITUS WITHOUT COMPLICATIONS (4) Parkinson disease r/t dementia Assessment/Plan: -Continue sinemet Problems reviewed: Yes Code(s): G20 - PARKINSON'S DISEASE (5) RLS (restless legs syndrome) Assessment/Plan: -Continuepramipexole 0.25 mg po HS Problems reviewed: Yes Code(s): G25.81 - RESTLESS LEGS SYNDROME Assessment/Plan See problem list Follow up with Endocrinology outpatient -Dr Zahira Loera MD within 4 weeks Follow up with Neurology- Dr Anil Causey MD outpatient within 4 weeks D/C all types of insulin outpatient Continue Januvia 50 mg po daily Continue Metformin 1000 mg po BID Continue Carbidopa/levodopa Cr 25/100 mg TID after each meal Continue Pramipexole 0.25 mg PO HS Continue diabetic low sodium diet Pt will also continue the following medications: Keppra 500 mg po BID Ranolazine 500 mg po BID Seroquel XR 150 mg po Daily in AM Metoprolol tartrate 50 mg po BID Aspirin 325 mg po daily Acetaminophen 500 mg, 1-2 tabs Q6H PRN for pain Constitutional: Yes: Well Nourished, No Distress, Calm Cardiovascular: Yes: Regular Rate and Rhythm Respiratory: Yes: Regular, CTA Bilaterally Gastrointestinal: Yes: Normal Bowel Sounds, Soft Renal/: Yes: WNL Musculoskeletal: Yes: WNL Extremities: Yes: WNL Edema: No Peripheral Pulses WNL: Yes Neurological: Yes: Alert, Oriented Psychiatric: Yes: Alert, Oriented Labs: CBC, BMP 01/16/20 07:36 01/16/20 07:36 Discharge Summary Problems reviewed: Yes Reason For Visit: AMS Current Active Problems ELIZABETH (acute kidney injury) (Acute) Parkinson disease (Acute) RLS (restless legs syndrome) (Acute) Condition: Stable - Instructions Diet, Activity, Other Instructions: Follow up with Endocrinology outpatient -Dr Zahira Loera MD within 4 weeks Follow up with Neurology- Dr Anil Causey MD outpatient within 4 weeks D/C all types of insulin outpatient Continue Januvia 50 mg po daily Continue Metformin 1000 mg po BID Continue Carbidopa/levodopa Cr 25/100 mg TID after each meal Continue Pramipexole 0.25 mg PO HS Continue diabetic low sodium diet Referrals: Anil Causey MD [Staff Physician] - Brenda Araujo MD [Primary Care Provider] - Luz Maria Rodriges MD [Staff Physician] - Disposition: [facility] - Home Medications Comprehensive Discharge Medication List: Ambulatory Orders Meclizine HCl [Antivert -] 25 mg PO TID 09/03/16 Quetiapine Fumarate "Xr" [Seroquel XR] 150 mg PO DAILY 09/22/16 Aspirin Coated [Ecotrin -] 325 mg PO DAILY #30 tab MDD 1 06/15/17 Atorvastatin Ca [Lipitor] 40 mg PO HS #30 tablet MDD 1 09/24/16 Metoprolol Tartrate [Lopressor -] 50 mg PO BID #60 tablet MDD 2 09/24/16 Ranolazine [Ranexa -] 500 mg PO BID #60 tab MDD 2 09/24/16 levETIRAcetam [Keppra -] 500 mg PO BID #60 tablet MDD 2 05/29/17 Acetaminophen [Tylenol .Extra-Strength -] 1 - 2 mg PO Q6H PRN #270 tablet 01/17/20 Carbidopa/Levodopa *Cr* 25/100 [Sinemet *Cr* 25/100 -] 1 combo PO TID@0900,1300,1830 #90 tablet.er 01/17/20 Folic Acid - 1 mg PO DAILY #30 tablet 01/17/20 Pramipexole Dihydrochloride [Mirapex -] 0.25 mg PO HS #30 tablet 01/17/20 Sitagliptin Phosphate [Januvia -] 50 mg PO DAILY@0700 #30 tablet 01/17/20 metFORMIN HCL [Glucophage -] 1,000 mg PO BID@0700,1630 #60 tablet 01/17/20 Prescription Drug Monitoring Program (I-STOP) results: I-STOP reviewed and no issues identified
[2020-01-18 12:21] VITALS: BP 156/76; PULSE 76; TEMP 97.7
== END 2020-01-18 11:28 | DRG 57 ==
LOC: JER 13:19 → JERBED 19:19 → J5S 21:05
PROVIDERS: ADMIT Hospitalist; ATTEND Family Medicine
DX: G20 Parkinson's disease (principal); N17.9 Acute kidney failure, unspecified; E11.65 Type 2 diabetes mellitus with hyperglycemia; R41.82 Altered mental status, unspecified; I10 Essential (primary) hypertension; R56.9 Unspecified convulsions; E78.5 Hyperlipidemia, unspecified; J45.909 Unspecified asthma, uncomplicated; I25.10 Atherosclerotic heart disease of native coronary artery without angina pectoris; E11.40 Type 2 diabetes mellitus with diabetic neuropathy, unspecified; G93.89 Other specified disorders of brain; G25.81 Restless legs syndrome; I69.320 Aphasia following cerebral infarction; Z86.73 Personal history of transient ischemic attack (TIA), and cerebral infarction without residual deficits; Z95.5 Presence of coronary angioplasty implant and graft
CPT/HCPCS: 36415; 70450-TC; 70551-TC; 80048; 80053; 81003; 82272; 82607; 82962; 83036; 83735; 84436; 84439; 84443; 84479; 85025; 85027; 86780; 87086; 93005; 93010; 93880-TC; 97116-GP; 97162-GP; 99285-25; C9803; U0003

== ENCOUNTER 2020-07-16 15:19 | Emergency (ER) | payer OTHER ==
[2020-07-16] MEDS ORDERED: LACTATED RINGERS SOLUTION 1000 ML INFUS.BAG IV ONE (17:02)
[2020-07-16] MEDS ORDERED: SODIUM CHLORIDE 0.9% 500 ML INFUS.BAG IV ONE (17:14)
[2020-07-16] MEDS ORDERED: ALPRAZolam 1 MG TABLET PO PRN (17:28)
[2020-07-16] MEDS ORDERED: ALPRAZolam 1 MG TABLET PO ONE (17:29)
[2020-07-16 17:43] VITALS: BMI 26.6
[2020-07-16] MEDS ORDERED: ALPRAZolam 1 MG TABLET ONE (18:17)
[2020-07-16 19:06] LABS: BASO % 0.2 % (0-2.0); EOS % 0.2 % (0-4.5); HEMATOCRIT 39.7 % (35.4-49); HEMOGLOBIN 13.6 GM/dL (11.7-16.9); LYMPH % 25.5 % (8-40); MCH 28.2 pg (25.7-33.7); MCHC 34.2 g/dl (32.0-35.9); MEAN CELL VOLUME 82.2 fl (80-96); MEAN PLT VOLUME 9.8 fl (7.5-11.1); MONO % 4.8 % (3.8-10.2); NEUT % 69.3 % (42.8-82.8); PLATELET COUNT 158 K/MM3 (134-434); RBC 4.82 M/mm3 (4.00-5.60); RDW 14.2 % (11.9-15.9); WHITE BLOOD COUNT 8.8 K/mm3 (4.0-10.0)
[2020-07-16 19:31] LABS: CHLORIDE 102 mmol/L (98-107); POTASSIUM 4.5 mmol/L (3.5-5.1); SODIUM 134 mmol/L (136-145)
[2020-07-16 19:38] LABS: ALBUMIN 4.1 g/dl (3.4-5.0); ANION GAP 9 MMOL/L (8-16); CALCIUM 8.8 mg/dL (8.5-10.1); CO2 24 mmol/L (21-32); GLUCOSE,RANDOM 269 mg/dL (74-106)
[2020-07-16 19:41] LABS: CREATININE 1.2 mg/dL (0.55-1.3); SGPT/ALT 21 U/L (13-61)
[2020-07-16 19:42] LABS: SGOT/AST 11 U/L (15-37)
[2020-07-16 19:43] LABS: BILIRUBIN,TOTAL 0.6 mg/dL (0.2-1)
[2020-07-16 19:44] LABS: ALK PHOS 64 U/L (45-117)
[2020-07-16] MEDS ORDERED: MAGNESIUM OXIDE 400 MG TABLET (FP) PO ONE (20:42)
[2020-07-16] MEDS ORDERED: MAGNESIUM OXIDE 400 MG TABLET (FP) ONE (22:22)
[2020-07-17 01:33] VITALS: TEMP 98.8
[2020-07-17 05:41] VITALS: BP 130/98; PULSE 81
== END 2020-07-17 06:34 | disposition home or self-care (01) ==
LOC: JER 15:19
DX: R53.1 Weakness (principal)
CPT/HCPCS: 36415; 71045-TC-FY; 80053; 82550; 82962; 83735; 84484; 85025; 93005; 93010; 99285-25; C9803; U0003; U0005

== ENCOUNTER 2020-10-21 15:01 | Emergency (ER) | payer OTHER ==
[2020-10-21 15:18] VITALS: TEMP 98.7; BMI 28.3
[2020-10-21] MEDS ORDERED: ACETAMINOPHEN 500 MG TABLET (FP) PO ONE (16:25)
[2020-10-21] MEDS ORDERED: ACETAMINOPHEN 325 MG TABLET (FP) ONE (16:42)
[2020-10-21 19:22] VITALS: BP 158/90; PULSE 80
== END 2020-10-22 05:15 ==
LOC: JER 15:01
DX: M79.604 Pain in right leg (principal); M79.605 Pain in left leg
CPT/HCPCS: 93970-TC; 99284-25

== ENCOUNTER 2020-11-10 11:02 | Emergency (ER) | payer OTHER ==
[2020-11-10 11:11] VITALS: TEMP 97.9; BMI 30.2
[2020-11-10] MEDS ORDERED: METHOCARBAMOL 500 MG TABLET PO ONE (11:58)
[2020-11-10] MEDS ORDERED: LIDOCAINE 5% TOPICAL PATCH TP ONE (11:58)
[2020-11-10] MEDS ORDERED: ACETAMINOPHEN 325 MG TABLET (FP) PO ONE (11:58)
[2020-11-10] MEDS ORDERED: ACETAMINOPHEN 325 MG TABLET (FP) ONE (12:05)
[2020-11-10] MEDS ORDERED: LIDOCAINE 5% TOPICAL PATCH ONE (12:05)
[2020-11-10] MEDS ORDERED: METHOCARBAMOL 500 MG TABLET ONE (12:05)
[2020-11-10 12:53] VITALS: BP 159/103; PULSE 82
[2020-11-10] MEDS ORDERED: LIDOCAINE PATCH REMOVAL MC SCH (22:00)
== END 2020-11-10 13:35 | disposition home or self-care (01) ==
LOC: JER 11:02
DX: M54.5 Low back pain (principal)
CPT/HCPCS: 99283-25

== ENCOUNTER 2020-12-05 13:08 | Emergency (ER) | payer OTHER ==
[2020-12-05 13:18] VITALS: BP 129/81; PULSE 93; TEMP 98.5; BMI 28.3
[2020-12-05] MEDS ORDERED: LIDOCAINE 5% TOPICAL PATCH TP ONE (13:55)
[2020-12-05] MEDS ORDERED: ACETAMINOPHEN 325 MG TABLET (FP) PO ONE (13:55)
[2020-12-05] MEDS ORDERED: METHOCARBAMOL 500 MG TABLET PO ONE (14:11)
[2020-12-05] MEDS ORDERED: ACETAMINOPHEN 325 MG TABLET (FP) ONE (14:21)
[2020-12-05] MEDS ORDERED: LIDOCAINE 5% TOPICAL PATCH ONE (14:22)
[2020-12-05] MEDS ORDERED: METHOCARBAMOL 500 MG TABLET ONE (14:22)
== END 2020-12-05 15:36 | disposition home or self-care (01) ==
LOC: JER 13:08
DX: M54.5 Low back pain (principal)
CPT/HCPCS: 93970-TC; 99284-25

== ENCOUNTER 2021-01-22 18:25 | Inpatient (IN) | payer OTHER ==
[2021-01-22 18:50] VITALS: BMI 30.7
[2021-01-22 21:08] LABS: BASO % 0.8 % (0-2.0); EOS % 3.2 % (0-4.5); HEMATOCRIT 34.5 % (35.4-49); HEMOGLOBIN 11.9 GM/dL (11.7-16.9); LYMPH % 31.4 % (8-40); MCH 28.9 pg (25.7-33.7); MCHC 34.6 g/dl (32.0-35.9); MEAN CELL VOLUME 83.4 fl (80-96); MEAN PLT VOLUME 9.7 fl (7.5-11.1); MONO % 4.6 % (3.8-10.2); PLATELET COUNT 139 10^3/uL (134-434); RBC 4.14 M/mm3 (4.00-5.60); RDW 13.4 % (11.9-15.9); WHITE BLOOD COUNT 6.7 K/mm3 (4.0-10.0)
[2021-01-22 21:30] LABS: CHLORIDE 105 mmol/L (98-107); SODIUM 135 mmol/L (136-145)
[2021-01-22 21:32] LABS: ANION GAP 9 MMOL/L (8-16); CO2 21 mmol/L (21-32)
[2021-01-22 21:33] LABS: ALBUMIN 3.5 g/dl (3.4-5.0); BLOOD UREA NITROGEN 17.7 mg/dL (7-18); CALCIUM 8.7 mg/dL (8.5-10.1)
[2021-01-22 21:37] LABS: SGOT/AST 15 U/L (15-37); SGPT/ALT 22 U/L (13-61)
[2021-01-22 21:38] LABS: BILIRUBIN,TOTAL 0.3 mg/dL (0.2-1); TOT PROT 7.3 g/dl (6.4-8.2)
[2021-01-22 21:39] LABS: ALK PHOS 55 U/L (45-117)
[2021-01-22 21:49] LABS: GLUCOSE,RANDOM 216 mg/dL (74-106)
[2021-01-22] MEDS ORDERED: LABETALOL HCL 5 MG/1 ML (100MG/20 ML VIAL) IVPUSH ONE (23:14)
[2021-01-22] MEDS ORDERED: LABETALOL HCL 5 MG/1 ML (100MG/20 ML VIAL) ONE (23:26)
[2021-01-23 08:19] LABS: HEMATOCRIT 34.5 % (35.4-49); MCHC 34.7 g/dl (32.0-35.9); MEAN CELL VOLUME 83.6 fl (80-96); MEAN PLT VOLUME 9.7 fl (7.5-11.1); PLATELET COUNT 144 10^3/uL (134-434); RBC 4.13 M/mm3 (4.00-5.60); RDW 13.3 % (11.9-15.9); WHITE BLOOD COUNT 8.4 K/mm3 (4.0-10.0)
[2021-01-23] MEDS: INSULIN SLIDING SCALE (NOVOLOG) 1 VIAL SQ SCH ×4 (08:26→21:29)
[2021-01-23 08:47] LABS: ALBUMIN 3.6 g/dl (3.4-5.0); CALCIUM 8.7 mg/dL (8.5-10.1)
[2021-01-23 08:48] LABS: BILIRUBIN,TOTAL 0.3 mg/dL (0.2-1); BLOOD UREA NITROGEN 16.5 mg/dL (7-18); MAGNESIUM 1.5 mg/dL (1.8-2.4); TOT PROT 7.4 g/dl (6.4-8.2)
[2021-01-23 08:51] LABS: CREATININE 0.9 mg/dL (0.55-1.3)
[2021-01-23] MEDS: levETIRAcetam 500 MG TABLET (FP) PO SCH ×2 (09:14→21:27)
[2021-01-23] MEDS: LISINOPRIL 10 MG TABLET PO SCH (09:15)
[2021-01-23] MEDS ORDERED: ENOXAPARIN NA (PORCINE) 40 MG/0.4 ML DISP.SYRIN SQ SCH (10:00)
[2021-01-23] MEDS ORDERED: ONDANSETRON 4 MG/2 ML VIAL IVPUSH PRN (14:05)
[2021-01-23] MEDS: METOPROLOL TARTRATE 50 MG TABLET (FP) PO SCH ×2 (14:12→21:27)
[2021-01-23] MEDS ORDERED: MAGNESIUM SULF 50% (8.12 MEQ/2 ML-1 GM VIAL) IVPB ONE (18:44)
[2021-01-23] MEDS ORDERED: METOPROLOL TARTRATE 50 MG TABLET (FP) PO ONE (18:45)
[2021-01-23] MEDS ORDERED: MECLIZINE HCL 12.5 MG TABLET PO PRN (19:05)
[2021-01-23] MEDS ORDERED: INSULIN (LEVEMIR) 100 UNITS/ML UNITS SQ ONE (20:51)
[2021-01-23] MEDS: INSULIN (LEVEMIR) 100 UNITS/ML UNITS SQ SCH (21:28)
[2021-01-24] MEDS ORDERED: LABETALOL HCL 5 MG/1 ML (100MG/20 ML VIAL) IVPUSH ONE (00:27)
[2021-01-24] MEDS ORDERED: LORazepam 2 MG/ML SDV VIAL ONE (00:29)
[2021-01-24] MEDS ORDERED: LABETALOL HCL 5 MG/1 ML (100MG/20 ML VIAL) ONE (00:30)
[2021-01-24] MEDS ORDERED: ONDANSETRON 4 MG/2 ML VIAL IVPUSH ONE ×2 (00:43→08:17)
[2021-01-24] MEDS ORDERED: LABETALOL HCL INJECTION 1,000 MG in SODIUM CHLORIDE 800 ML IV SCH (00:45)
[2021-01-24] MEDS: PANTOPRAZOLE SODIUM 40 MG VIAL IVPUSH SCH ×2 (01:01→10:00)
[2021-01-24 01:05] LABS: BASO % 0.6 % (0-2.0); EOS % 0.2 % (0-4.5); HEMATOCRIT 37.3 % (35.4-49); HEMOGLOBIN 12.7 GM/dL (11.7-16.9); MCH 28.3 pg (25.7-33.7); MCHC 34.2 g/dl (32.0-35.9); MEAN CELL VOLUME 82.9 fl (80-96); MEAN PLT VOLUME 9.2 fl (7.5-11.1); MONO % 5.5 % (3.8-10.2); NEUT % 65.7 % (42.8-82.8); PLATELET COUNT 189 10^3/uL (134-434); RDW 13.2 % (11.9-15.9); WHITE BLOOD COUNT 11.3 K/mm3 (4.0-10.0)
[2021-01-24 01:22] LABS: INR 1.03 (0.83-1.09)
[2021-01-24] MEDS ORDERED: niCARdipine HCL 25 MG/10 ML AMPUL IVPB ONE (01:24)
[2021-01-24 01:25] LABS: ACTIVATED PTT 27.1 SECONDS (25.2-36.5)
[2021-01-24 01:26] LABS: CHLORIDE 105 mmol/L (98-107); SODIUM 136 mmol/L (136-145)
[2021-01-24 01:28] LABS: ANION GAP 13 MMOL/L (8-16); CALCIUM 8.7 mg/dL (8.5-10.1); CO2 19 mmol/L (21-32)
[2021-01-24 01:29] LABS: ALBUMIN 3.6 g/dl (3.4-5.0); BLOOD UREA NITROGEN 17.9 mg/dL (7-18); LIPASE 131 U/L (73-393)
[2021-01-24 01:30] LABS: GLUCOSE,RANDOM 260 mg/dL (74-106)
[2021-01-24 01:31] LABS: SGOT/AST 12 U/L (15-37); SGPT/ALT 21 U/L (13-61)
[2021-01-24 01:33] LABS: TOT PROT 7.9 g/dl (6.4-8.2)
[2021-01-24 01:34] LABS: ALK PHOS 62 U/L (45-117)
[2021-01-24] MEDS: NICARDIPINE 25 MG in DEXTROSE 5%-WATER - 240 ML IVPB SCH (01:34)
[2021-01-24 01:36] LABS: BILIRUBIN,TOTAL 0.4 mg/dL (0.2-1)
[2021-01-24] MEDS: INSULIN SLIDING SCALE (NOVOLOG) 1 VIAL SQ SCH ×3 (06:55→20:00)
[2021-01-24 07:35] LABS: ALBUMIN 3.7 g/dl (3.4-5.0); BLOOD UREA NITROGEN 21.6 mg/dL (7-18); CALCIUM 8.8 mg/dL (8.5-10.1); MAGNESIUM 1.8 mg/dL (1.8-2.4)
[2021-01-24 07:40] LABS: BILIRUBIN,TOTAL 0.5 mg/dL (0.2-1); TOT PROT 7.7 g/dl (6.4-8.2)
[2021-01-24 07:41] LABS: CREATININE 1.1 mg/dL (0.55-1.3)
[2021-01-24 07:44] LABS: BASO % 0.2 % (0-2.0); EOS % 0.1 % (0-4.5); HEMATOCRIT 35.8 % (35.4-49); HEMOGLOBIN 12.4 GM/dL (11.7-16.9); LYMPH % 19.7 % (8-40); MCH 28.8 pg (25.7-33.7); MCHC 34.5 g/dl (32.0-35.9); MEAN CELL VOLUME 83.6 fl (80-96); MEAN PLT VOLUME 9.9 fl (7.5-11.1); MONO % 3.2 % (3.8-10.2); NEUT % 76.8 % (42.8-82.8); PLATELET COUNT 165 10^3/uL (134-434); RBC 4.28 M/mm3 (4.00-5.60); RDW 13.3 % (11.9-15.9); WHITE BLOOD COUNT 11.5 K/mm3 (4.0-10.0)
[2021-01-24 11:11] LABS: PHOSPHOROUS 3.4 mg/dL (2.5-4.9)
[2021-01-24] MEDS ORDERED: PT OWN MED DRAWER 7, Y5N ONE (12:17)
[2021-01-24] MEDS: levETIRAcetam 500 MG/5 ML INJECTION VIAL IVPB SCH (12:28)
[2021-01-24] MEDS ORDERED: MIDAZOLAM HCL 2 MG/2 ML SINGLE DOSE VIAL ONE (12:30)
[2021-01-24] MEDS ORDERED: MIDAZOLAM HCL 2 MG/2 ML SINGLE DOSE VIAL IVPUSH ONE (12:30)
[2021-01-24] MEDS: levETIRAcetam 500 MG TABLET (FP) PO SCH (13:35)
[2021-01-24] MEDS: METOPROLOL TARTRATE 50 MG TABLET (FP) PO SCH (13:35)
[2021-01-24] MEDS: LISINOPRIL 10 MG TABLET PO SCH (13:35)
[2021-01-25] MEDS: INSULIN SLIDING SCALE (NOVOLOG) 1 VIAL SQ SCH ×5 (00:35→22:47)
[2021-01-25] MEDS: INSULIN (LEVEMIR) 100 UNITS/ML UNITS SQ SCH ×2 (00:36→22:47)
[2021-01-25] MEDS: levETIRAcetam 500 MG/5 ML INJECTION VIAL IVPB SCH ×3 (00:36→22:44)
[2021-01-25] MEDS: NICARDIPINE 25 MG in DEXTROSE 5%-WATER - 240 ML IVPB SCH (03:09)
[2021-01-25] MEDS: PANTOPRAZOLE SODIUM 40 MG VIAL IVPUSH SCH (10:22)
[2021-01-25] MEDS: LISINOPRIL 10 MG TABLET PO SCH (11:42)
[2021-01-25] MEDS ORDERED: METOPROLOL TARTRATE 25 MG TABLET (FP) PO SCH (22:30)
[2021-01-26] MEDS: amLODIPine BESYLATE 5 MG TABLET (FP) PO SCH ×2 (05:33→09:42)
[2021-01-26] MEDS: INSULIN SLIDING SCALE (NOVOLOG) 1 VIAL SQ SCH ×4 (06:32→21:50)
[2021-01-26 07:18] LABS: ALBUMIN 3.4 g/dl (3.4-5.0); BLOOD UREA NITROGEN 18.3 mg/dL (7-18); MAGNESIUM 2.2 mg/dL (1.8-2.4)
[2021-01-26 07:21] LABS: BILIRUBIN,TOTAL 0.6 mg/dL (0.2-1); PHOSPHOROUS 3.1 mg/dL (2.5-4.9)
[2021-01-26 07:23] LABS: TOT PROT 7.6 g/dl (6.4-8.2)
[2021-01-26] MEDS: levETIRAcetam 500 MG/5 ML INJECTION VIAL IVPB SCH ×2 (09:35→21:51)
[2021-01-26] MEDS: PANTOPRAZOLE SODIUM 40 MG VIAL IVPUSH SCH (09:41)
[2021-01-26] MEDS: LISINOPRIL 10 MG TABLET PO SCH (09:42)
[2021-01-26] MEDS ORDERED: amLODIPine BESYLATE 5 MG TABLET (FP) PO SCH (10:00)
[2021-01-26 10:02] LABS: HEMATOCRIT 37.8 % (35.4-49); HEMOGLOBIN 13.2 GM/dL (11.7-16.9); MCH 29.1 pg (25.7-33.7); MCHC 34.8 g/dl (32.0-35.9); MEAN CELL VOLUME 83.7 fl (80-96); MEAN PLT VOLUME 9.3 fl (7.5-11.1); PLATELET COUNT 189 10^3/uL (134-434); RBC 4.52 M/mm3 (4.00-5.60); RDW 13.4 % (11.9-15.9); WHITE BLOOD COUNT 8.8 K/mm3 (4.0-10.0)
[2021-01-26] MEDS: INSULIN (LEVEMIR) 100 UNITS/ML UNITS SQ SCH (21:51)
[2021-01-27] MEDS: INSULIN SLIDING SCALE (NOVOLOG) 1 VIAL SQ SCH ×4 (06:30→21:45)
[2021-01-27 07:14] LABS: BASO % 0.5 % (0-2.0); HEMATOCRIT 37.4 % (35.4-49); LYMPH % 31.2 % (8-40); MCH 29.2 pg (25.7-33.7); MCHC 34.7 g/dl (32.0-35.9); MEAN CELL VOLUME 84.2 fl (80-96); MEAN PLT VOLUME 9.5 fl (7.5-11.1); MONO % 6.1 % (3.8-10.2); NEUT % 54.2 % (42.8-82.8); PLATELET COUNT 199 10^3/uL (134-434); RBC 4.44 M/mm3 (4.00-5.60); RDW 13.5 % (11.9-15.9); WHITE BLOOD COUNT 7.9 K/mm3 (4.0-10.0)
[2021-01-27 07:34] LABS: ALBUMIN 3.2 g/dl (3.4-5.0); BLOOD UREA NITROGEN 17.3 mg/dL (7-18); CALCIUM 7.6 mg/dL (8.5-10.1); MAGNESIUM 2.2 mg/dL (1.8-2.4)
[2021-01-27 07:37] LABS: CREATININE 0.9 mg/dL (0.55-1.3); PHOSPHOROUS 3.4 mg/dL (2.5-4.9)
[2021-01-27 07:39] LABS: BILIRUBIN,TOTAL 0.4 mg/dL (0.2-1); TOT PROT 6.9 g/dl (6.4-8.2)
[2021-01-27] MEDS: levETIRAcetam 500 MG/5 ML INJECTION VIAL IVPB SCH (09:47)
[2021-01-27] MEDS: PANTOPRAZOLE SODIUM 40 MG VIAL IVPUSH SCH (09:48)
[2021-01-27] MEDS: LISINOPRIL 10 MG TABLET PO SCH (09:48)
[2021-01-27] MEDS: amLODIPine BESYLATE 10 MG TABLET (FP) PO SCH (09:53)
[2021-01-27 13:21] LABS: ANISOCYTOSIS 1+; MACROCYTOSIS 0; PLATELET ESTIMATE NORMAL
[2021-01-27] MEDS: POLYETHYLENE GLYCOL (HEALTHYLAX) 3350 17 GM PACKET PO SCH ×2 (14:18→22:00)
[2021-01-27] MEDS ORDERED: MECLIZINE HCL 12.5 MG TABLET PO PRN (15:46)
[2021-01-27] MEDS ORDERED: ONDANSETRON 4 MG/2 ML VIAL IVPUSH PRN (15:46)
[2021-01-27] MEDS ORDERED: MECLIZINE HCL 25 MG TABLET (FP) PO PRN (15:49)
[2021-01-27] MEDS ORDERED: BISACODYL 5 MG TABLET.DR (FP) PO ONE (16:00)
[2021-01-27] MEDS ORDERED: PEG 3350/NA SULF BICARB CL/KCL 4000 ML SOLN.RECON PO ONE (17:00)
[2021-01-27] MEDS ORDERED: INSULIN (NOVOLOG) ASPART 100 UNITS/ML 10ML VIAL ONE (17:15)
[2021-01-27] MEDS: levETIRAcetam 500 MG TABLET (FP) PO SCH (21:44)
[2021-01-27] MEDS: INSULIN (LEVEMIR) 100 UNITS/ML UNITS SQ SCH (21:45)
[2021-01-27] MEDS ORDERED: METOPROLOL TARTRATE 50 MG TABLET (FP) PO SCH (22:00)
[2021-01-28] MEDS: POLYETHYLENE GLYCOL (HEALTHYLAX) 3350 17 GM PACKET PO SCH ×3 (05:52→21:06)
[2021-01-28] MEDS: INSULIN SLIDING SCALE (NOVOLOG) 1 VIAL SQ SCH ×4 (06:06→21:50)
[2021-01-28 08:47] LABS: HEMATOCRIT 35.4 % (35.4-49); HEMOGLOBIN 12.4 GM/dL (11.7-16.9); MCH 29.2 pg (25.7-33.7); MCHC 35.1 g/dl (32.0-35.9); MEAN CELL VOLUME 83.1 fl (80-96); MEAN PLT VOLUME 9.3 fl (7.5-11.1); PLATELET COUNT 180 10^3/uL (134-434); RBC 4.26 M/mm3 (4.00-5.60); RDW 13.5 % (11.9-15.9); WHITE BLOOD COUNT 7.7 K/mm3 (4.0-10.0)
[2021-01-28 08:58] LABS: INR 1.1 (0.83-1.09); PROTHROMBIN TIME (PATIENT) 12.3 SEC (9.7-13.0)
[2021-01-28 09:12] LABS: ALBUMIN 3.1 g/dl (3.4-5.0); BLOOD UREA NITROGEN 14.7 mg/dL (7-18); CALCIUM 8.5 mg/dL (8.5-10.1)
[2021-01-28 09:13] LABS: MAGNESIUM 1.7 mg/dL (1.8-2.4)
[2021-01-28 09:15] LABS: CREATININE 0.9 mg/dL (0.55-1.3)
[2021-01-28 09:17] LABS: BILIRUBIN,TOTAL 0.4 mg/dL (0.2-1); TOT PROT 6.7 g/dl (6.4-8.2)
[2021-01-28] MEDS: levETIRAcetam 500 MG TABLET (FP) PO SCH ×2 (09:19→21:07)
[2021-01-28] MEDS: amLODIPine BESYLATE 10 MG TABLET (FP) PO SCH (09:19)
[2021-01-28] MEDS: PANTOPRAZOLE SODIUM 40 MG VIAL IVPUSH SCH (09:20)
[2021-01-28] MEDS: LISINOPRIL 10 MG TABLET PO SCH (09:20)
[2021-01-28 10:48] LABS: ANISOCYTOSIS 0; MACROCYTOSIS 0; PLATELET ESTIMATE NORMAL
[2021-01-28] MEDS: INSULIN (LEVEMIR) 100 UNITS/ML UNITS SQ SCH (21:11)
[2021-01-29] MEDS: POLYETHYLENE GLYCOL (HEALTHYLAX) 3350 17 GM PACKET PO SCH (06:07)
[2021-01-29] MEDS: INSULIN SLIDING SCALE (NOVOLOG) 1 VIAL SQ SCH ×2 (06:09→11:43)
[2021-01-29] MEDS ORDERED: TAMSULOSIN HCL 0.4 MG CAP PO ONE (08:52)
[2021-01-29] MEDS ORDERED: PT OWN MED DRAWER 7, Y5N ONE ×2 (08:58→13:48)
[2021-01-29] MEDS: LISINOPRIL 10 MG TABLET PO SCH (09:03)
[2021-01-29] MEDS: amLODIPine BESYLATE 10 MG TABLET (FP) PO SCH (09:03)
[2021-01-29] MEDS: PANTOPRAZOLE SODIUM 40 MG VIAL IVPUSH SCH (09:03)
[2021-01-29] MEDS: levETIRAcetam 500 MG TABLET (FP) PO SCH (09:03)
[2021-01-29 09:11] LABS: BASO % 0.5 % (0-2.0); HEMATOCRIT 34.5 % (35.4-49); HEMOGLOBIN 11.9 GM/dL (11.7-16.9); LYMPH % 35.9 % (8-40); MCHC 34.6 g/dl (32.0-35.9); MEAN CELL VOLUME 83.9 fl (80-96); MONO % 5.2 % (3.8-10.2); NEUT % 51.4 % (42.8-82.8); PLATELET COUNT 189 10^3/uL (134-434); RBC 4.11 M/mm3 (4.00-5.60); RDW 13.4 % (11.9-15.9); WHITE BLOOD COUNT 6.6 K/mm3 (4.0-10.0)
[2021-01-29 09:17] LABS: INR 1.09 (0.83-1.09); PROTHROMBIN TIME (PATIENT) 12.8 SEC (9.7-13.0)
[2021-01-29 09:33] LABS: ALBUMIN 3.1 g/dl (3.4-5.0); BLOOD UREA NITROGEN 10.6 mg/dL (7-18); CALCIUM 7.7 mg/dL (8.5-10.1)
[2021-01-29 09:37] LABS: CREATININE 0.9 mg/dL (0.55-1.3)
[2021-01-29 09:38] LABS: BILIRUBIN,TOTAL 0.7 mg/dL (0.2-1); TOT PROT 6.8 g/dl (6.4-8.2)
[2021-01-29] MEDS ORDERED: ASPIRIN 81 MG CHEWABLE TABLETS PO SCH (10:15)
[2021-01-29] MEDS ORDERED: INSULIN (NOVOLOG) ASPART 100 UNITS/ML 10ML VIAL ONE (11:32)
[2021-01-29 14:54] VITALS: BP 113/60; PULSE 79; TEMP 98.8
[2021-01-30] MEDS ORDERED: TAMSULOSIN HCL 0.4 MG CAP PO SCH (08:30)
[2021-01-30] MEDS ORDERED: POLYETHYLENE GLYCOL (HEALTHYLAX) 3350 17 GM PACKET PO SCH (10:00)
== END 2021-01-29 16:44 | disposition home or self-care (01) | DRG 305 ==
LOC: JER 18:25 → JERBED 22:01 → UNDOADMOB 22:01 → INTOOBSV 22:01 → J4W 01-23 06:25 → JERBED 01-23 06:25 → J4W 01-23 09:59 → JERBED 01-23 09:59 → JICU 01-24 01:21 → OBSVTOIN 01-24 11:17 → J8W 01-27 16:22
PROVIDERS: ADMIT Internal Medicine; ATTEND Nurse Practitioner Acute Care
PROC: 0D9670Z Drainage of Stomach with Drainage Device, Via Natural or Artificial Opening (ICD-10-PCS; principal; 2021-01-24)
PROC: 0DBM8ZX Excision of Descending Colon, Via Natural or Artificial Opening Endoscopic, Diagnostic (ICD-10-PCS; 2021-01-28)
PROC: 0DBL8ZX Excision of Transverse Colon, Via Natural or Artificial Opening Endoscopic, Diagnostic (ICD-10-PCS; 2021-01-28)
PROC: 0DBP8ZX Excision of Rectum, Via Natural or Artificial Opening Endoscopic, Diagnostic (ICD-10-PCS; 2021-01-28)
DX: I16.1 Hypertensive emergency (principal); K92.0 Hematemesis; G81.90 Hemiplegia, unspecified affecting unspecified side; G40.909 Epilepsy, unspecified, not intractable, without status epilepticus; R14.0 Abdominal distension (gaseous); D64.9 Anemia, unspecified; R55 Syncope and collapse; I25.10 Atherosclerotic heart disease of native coronary artery without angina pectoris; D12.8 Benign neoplasm of rectum; D12.3 Benign neoplasm of transverse colon; D12.4 Benign neoplasm of descending colon; K64.8 Other hemorrhoids; E78.5 Hyperlipidemia, unspecified; K57.90 Diverticulosis of intestine, part unspecified, without perforation or abscess without bleeding; K21.9 Gastro-esophageal reflux disease without esophagitis; M79.604 Pain in right leg; E66.9 Obesity, unspecified; M79.605 Pain in left leg; I12.9 Hypertensive chronic kidney disease with stage 1 through stage 4 chronic kidney disease, or unspecified chronic kidney disease; E11.22 Type 2 diabetes mellitus with diabetic chronic kidney disease; N18.9 Chronic kidney disease, unspecified; Z89.022 Acquired absence of left finger(s); Z95.5 Presence of coronary angioplasty implant and graft; Z68.30 Body mass index [BMI] 30.0-30.9, adult; Z91.14 Patient's other noncompliance with medication regimen; Z87.11 Personal history of peptic ulcer disease
CPT/HCPCS: 36415; 70450-TC; 71045-TC-FY; 74019-TC-FY; 74177-TC; 80053; 80061; 80177; 82272; 82550; 82553; 82962; 83036; 83605; 83690; 83735; 84100; 84443; 84484; 85025; 85027; 85610; 85730; 88305-TC; 93005; 93010; 93306-TC; 93880-TC; 97116-GP; 97162-GP; 99285-25; C9803; G0378; Q9967; U0003; U0005

== ENCOUNTER 2021-07-08 16:34 | Emergency (ER) | payer OTHER ==
[2021-07-08 16:57] VITALS: TEMP 99.5
[2021-07-08] MEDS ORDERED: ACETAMINOPHEN 325 MG TABLET (FP) PO ONE (17:18)
[2021-07-08] MEDS ORDERED: ACETAMINOPHEN 325 MG TABLET (FP) ONE (17:44)
[2021-07-08 18:00] LABS: BASO % 0.8 % (0-2.0); EOS % 3.3 % (0-4.5); HEMATOCRIT 34.4 % (35.4-49); HEMOGLOBIN 11.9 GM/dL (11.7-16.9); LYMPH % 33.2 % (8-40); MCH 28.8 pg (25.7-33.7); MCHC 34.6 g/dl (32.0-35.9); MEAN CELL VOLUME 83.3 fl (80-96); MEAN PLT VOLUME 9.4 fl (7.5-11.1); MONO % 6.2 % (3.8-10.2); NEUT % 56.5 % (42.8-82.8); PLATELET COUNT 176 10^3/uL (134-434); RBC 4.14 M/mm3 (4.00-5.60); RDW 14.2 % (11.9-15.9); WHITE BLOOD COUNT 4.8 K/mm3 (4.0-10.0)
[2021-07-08 18:04] LABS: EPI CELLS 2 /uL (0-25.1); HYALINE CASTS 1 /uL (0-3.1); URINE APPEARANCE CLEAR; URINE BACTERIA 3 /uL (0-1359); URINE BILIRUBIN NEGATIVE (NEGATIVE); URINE COLOR YELLOW; URINE GLUCOSE (UA) TRACE (NEGATIVE); URINE KETONE NEGATIVE (NEGATIVE); URINE LEUK ESTERASE NEGATIVE (NEGATIVE); URINE NITRITE NEGATIVE (NEGATIVE); URINE PROTEIN 2+ (NEGATIVE); URINE RBC 4 /uL (0-23.9); URINE UROBILINOGEN 0.2 mg/dL (0.2-1.0); URINE WBC 3 /uL (0-25.8)
[2021-07-08 18:14] LABS: ALBUMIN 3.9 g/dl (3.4-5.0); BLOOD UREA NITROGEN 23.8 mg/dL (7-18); CALCIUM 8.8 mg/dL (8.5-10.1); MAGNESIUM 1.9 mg/dL (1.8-2.4)
[2021-07-08 18:17] LABS: CREATININE 1.1 mg/dL (0.55-1.3)
[2021-07-08 18:19] LABS: TOT PROT 7.8 g/dl (6.4-8.2)
[2021-07-08 18:20] LABS: BILIRUBIN,TOTAL 0.3 mg/dL (0.2-1)
[2021-07-08] MEDS ORDERED: SODIUM ZIRCONIUM CYCLOSILICATE (LOKELMA) 5 GM PACKET PO SCH (19:00)
[2021-07-08 20:38] VITALS: BP 178/68; PULSE 81
== END 2021-07-08 20:40 | disposition home or self-care (01) ==
LOC: JER 16:34
DX: M79.10 Myalgia, unspecified site (principal)
CPT/HCPCS: 36415; 71045-TC-FY; 80053; 81003; 83735; 84484; 85025; 87086; 93005; 93010; 99284-25

== ENCOUNTER 2021-07-22 15:46 | Emergency (ER) | payer OTHER ==
[2021-07-22 16:09] VITALS: TEMP 98.1; BMI 28.3
[2021-07-22] MEDS ORDERED: ACETAMINOPHEN 1000 MG/100 ML BAG IVPB ONE (17:26)
[2021-07-22] MEDS ORDERED: MAG HYDROX/AL HYDROX/SIMETH 30 ML UNIT-DOSE CUP PO ONE (17:27)
[2021-07-22] MEDS ORDERED: FAMOTIDINE 20 MG/50 ML IVPB 20 MG/50 ML MG IVPB ONE (17:27)
[2021-07-22] MEDS ORDERED: ACETAMINOPHEN INJECTION 100 ML IVPB ONE (17:30)
[2021-07-22] MEDS ORDERED: MAG HYDROX/AL HYDROX/SIMETH 30 ML UNIT-DOSE CUP ONE (17:31)
[2021-07-22] MEDS ORDERED: FAMOTIDINE 10 MG/ML VIAL IVPB ONE (17:31)
[2021-07-22 18:03] LABS: BASO % 0.6 % (0-2.0); EOS % 6.5 % (0-4.5); HEMATOCRIT 37.2 % (35.4-49); HEMOGLOBIN 12.5 GM/dL (11.7-16.9); LYMPH % 25.3 % (8-40); MCH 28.2 pg (25.7-33.7); MCHC 33.5 g/dl (32.0-35.9); MEAN PLT VOLUME 9.2 fl (7.5-11.1); MONO % 4.2 % (3.8-10.2); NEUT % 63.4 % (42.8-82.8); PLATELET COUNT 155 10^3/uL (134-434); RBC 4.43 M/mm3 (4.00-5.60); WHITE BLOOD COUNT 7.5 K/mm3 (4.0-10.0)
[2021-07-22 18:29] LABS: CHLORIDE 106 mmol/L (98-107); SODIUM 136 mmol/L (136-145)
[2021-07-22 18:31] LABS: CALCIUM 9.6 mg/dL (8.5-10.1)
[2021-07-22 18:32] LABS: ALBUMIN 3.9 g/dl (3.4-5.0); BLOOD UREA NITROGEN 26.4 mg/dL (7-18); CO2 24 mmol/L (21-32); GLUCOSE,RANDOM 241 mg/dL (74-106); LIPASE 134 U/L (73-393)
[2021-07-22 18:34] LABS: CREATININE 1.1 mg/dL (0.55-1.3)
[2021-07-22 18:35] LABS: SGOT/AST 10 U/L (15-37); SGPT/ALT 26 U/L (13-61)
[2021-07-22 18:36] LABS: BILIRUBIN,TOTAL 0.2 mg/dL (0.2-1); TOT PROT 8.2 g/dl (6.4-8.2)
[2021-07-22 18:37] LABS: ALK PHOS 62 U/L (45-117)
[2021-07-22 18:39] LABS: ANION GAP 7 MMOL/L (8-16)
[2021-07-22 18:40] VITALS: BP 163/89; PULSE 77
[2021-07-22] MEDS ORDERED: CALCIUM GLUCONATE 10% - 1,000 MG/10 ML VIAL IVPB ONE (18:46)
[2021-07-22] MEDS ORDERED: CALCIUM GLUCONATE 10% - 1,000 MG/10 ML VIAL IVPUSH ONE (18:46)
[2021-07-22] MEDS ORDERED: INSULIN REGULAR HUMAN 100 UNITS/ML *VIAL IVPUSH ONE ×2 (18:48→22:08)
[2021-07-22] MEDS ORDERED: DEXTROSE 50%-WATER - 25 GM/50 ML VIAL IVPUSH ONE ×2 (18:50→22:09)
[2021-07-22] MEDS ORDERED: CALCIUM GLUCONATE 10% - 1,000 MG/10 ML VIAL ONE (18:53)
[2021-07-22] MEDS ORDERED: DEXTROSE 50%-WATER 25 GM/50 ML DISP.SYRIN ONE ×2 (18:53→22:18)
[2021-07-22] MEDS ORDERED: INSULIN REGULAR HUMAN 100 UNITS/ML *VIAL ONE (18:54)
[2021-07-22 22:06] LABS: BLOOD UREA NITROGEN 27.1 mg/dL (7-18)
[2021-07-22 22:09] LABS: CREATININE 1.3 mg/dL (0.55-1.3)
[2021-07-22] MEDS ORDERED: SODIUM ZIRCONIUM CYCLOSILICATE (LOKELMA) 5 GM PACKET PO ONE (22:27)
[2021-07-22] MEDS ORDERED: SODIUM ZIRCONIUM CYCLOSILICATE (LOKELMA) 5 GM PACKET ONE (22:45)
[2021-07-23 00:14] LABS: CALCIUM 8.9 mg/dL (8.5-10.1)
[2021-07-23 00:15] LABS: BLOOD UREA NITROGEN 27.9 mg/dL (7-18)
[2021-07-23 00:18] LABS: CREATININE 1.3 mg/dL (0.55-1.3)
[2021-07-23] MEDS ORDERED: levETIRAcetam 500 MG TABLET (FP) PO ONE ×2 (01:28→01:29)
[2021-07-23] MEDS ORDERED: SODIUM ZIRCONIUM CYCLOSILICATE (LOKELMA) 5 GM PACKET PO SCH (10:00)
== END 2021-07-23 01:38 | disposition home or self-care (01) ==
LOC: JER 15:46
PROC: 3E033GC Introduction of Other Therapeutic Substance into Peripheral Vein, Percutaneous Approach (ICD-10-PCS; principal; 2021-07-22)
DX: R11.2 Nausea with vomiting, unspecified (principal); M79.10 Myalgia, unspecified site; E87.5 Hyperkalemia
CPT/HCPCS: 36415; 80048; 80053; 83690; 85025; 93005; 93010; 99284-25

== ENCOUNTER 2021-08-21 15:28 | Inpatient (IN) | payer OTHER ==
[2021-08-21 16:09] VITALS: BMI 30.7
[2021-08-21 17:59] LABS: BASO % 0.8 % (0-2.0); EOS % 9.6 % (0-4.5); HEMATOCRIT 36.2 % (35.4-49); HEMOGLOBIN 11.8 GM/dL (11.7-16.9); LYMPH % 36.2 % (8-40); MCH 27.9 pg (25.7-33.7); MCHC 32.5 g/dl (32.0-35.9); MEAN CELL VOLUME 85.8 fl (80-96); MEAN PLT VOLUME 9.9 fl (7.5-11.1); MONO % 5.7 % (3.8-10.2); NEUT % 47.7 % (42.8-82.8); PLATELET COUNT 137 10^3/uL (134-434); RBC 4.22 M/mm3 (4.00-5.60); RDW 14.1 % (11.9-15.9); WHITE BLOOD COUNT 4.6 K/mm3 (4.0-10.0)
[2021-08-21 18:14] LABS: CHLORIDE 101 mmol/L (98-107); SODIUM 132 mmol/L (136-145)
[2021-08-21 18:20] LABS: ALBUMIN 4.2 g/dl (3.4-5.0); BLOOD UREA NITROGEN 23.1 mg/dL (7-18); CO2 24 mmol/L (21-32); GLUCOSE,RANDOM 346 mg/dL (74-106); MAGNESIUM 2.1 mg/dL (1.8-2.4)
[2021-08-21 18:23] LABS: CREATININE 1.2 mg/dL (0.55-1.3); SGOT/AST 14 U/L (15-37); SGPT/ALT 36 U/L (13-61)
[2021-08-21 18:24] LABS: PHOSPHOROUS 3.1 mg/dL (2.5-4.9)
[2021-08-21 18:25] LABS: BILIRUBIN,TOTAL 0.2 mg/dL (0.2-1); TOT PROT 8.1 g/dl (6.4-8.2)
[2021-08-21 18:26] LABS: ALK PHOS 64 U/L (45-117)
[2021-08-21 18:45] LABS: ANION GAP 8 MMOL/L (8-16)
[2021-08-21] MEDS ORDERED: SODIUM ZIRCONIUM CYCLOSILICATE (LOKELMA) 5 GM PACKET PO SCH (18:45)
[2021-08-21] MEDS ORDERED: INSULIN REGULAR HUMAN 100 UNITS/ML *VIAL IVPUSH ONE (18:45)
[2021-08-21] MEDS ORDERED: DEXTROSE 50%-WATER - 25 GM/50 ML VIAL IVPUSH ONE (18:46)
[2021-08-21] MEDS ORDERED: SODIUM ZIRCONIUM CYCLOSILICATE (LOKELMA) 5 GM PACKET ONE (18:50)
[2021-08-21] MEDS ORDERED: DEXTROSE 50%-WATER 25 GM/50 ML DISP.SYRIN ONE (18:50)
[2021-08-21] MEDS ORDERED: INSULIN REGULAR HUMAN 100 UNITS/ML *VIAL ONE (19:01)
[2021-08-21 19:55] LABS: EPI CELLS 1 /uL (0-25.1); HYALINE CASTS 0 /uL (0-3.1); PH,URINE 5.5 (5.0-8.0); URINE APPEARANCE CLEAR; URINE BACTERIA 1 /uL (0-1359); URINE BILIRUBIN NEGATIVE (NEGATIVE); URINE COLOR YELLOW; URINE GLUCOSE (UA) 3+ (NEGATIVE); URINE KETONE NEGATIVE (NEGATIVE); URINE LEUK ESTERASE NEGATIVE (NEGATIVE); URINE NITRITE NEGATIVE (NEGATIVE); URINE PROTEIN 1+ (NEGATIVE); URINE RBC 3 /uL (0-23.9); URINE UROBILINOGEN 0.2 mg/dL (0.2-1.0); URINE WBC 1 /uL (0-25.8)
[2021-08-21] MEDS ORDERED: SODIUM CHLORIDE 0.9% 500 ML INFUS.BAG IV ONE (20:13)
[2021-08-21 21:18] LABS: CALCIUM 8.3 mg/dL (8.5-10.1)
[2021-08-21 21:19] LABS: BLOOD UREA NITROGEN 23.4 mg/dL (7-18)
[2021-08-21 21:22] LABS: CREATININE 1.1 mg/dL (0.55-1.3)
[2021-08-21] MEDS ORDERED: QUEtiapine FUMARATE 100 MG TABLET (FP) ONE (22:56)
[2021-08-21] MEDS ORDERED: levETIRAcetam 500 MG TABLET (FP) PO ONE (22:56)
[2021-08-21] MEDS ORDERED: GABAPENTIN 400 MG CAPSULE ONE (22:57)
[2021-08-21] MEDS: GABAPENTIN 400 MG CAPSULE PO SCH (23:02)
[2021-08-21] MEDS: levETIRAcetam 500 MG TABLET (FP) PO SCH (23:02)
[2021-08-21] MEDS ORDERED: INSULIN SLIDING SCALE (NOVOLOG) 1 VIAL SQ ONE (23:05)
[2021-08-21] MEDS: INSULIN SLIDING SCALE (NOVOLOG) 1 VIAL SQ SCH (23:08)
[2021-08-22] MEDS: PRAMIPEXOLE DIHYDROCHLORIDE 0.125 MG TABLET PO SCH ×4 (00:33→21:05)
[2021-08-22] MEDS: HEPARIN NA (PORCINE) 5,000 UNITS/ML 1ML VIAL SQ SCH ×3 (05:07→21:04)
[2021-08-22] MEDS: GABAPENTIN 400 MG CAPSULE PO SCH ×3 (05:08→21:03)
[2021-08-22] MEDS: INSULIN SLIDING SCALE (NOVOLOG) 1 VIAL SQ SCH ×3 (06:02→21:04)
[2021-08-22 09:26] LABS: BASO % 0.5 % (0-2.0); EOS % 9.1 % (0-4.5); HEMATOCRIT 34.8 % (35.4-49); HEMOGLOBIN 11.3 GM/dL (11.7-16.9); LYMPH % 32.7 % (8-40); MCHC 32.6 g/dl (32.0-35.9); MEAN CELL VOLUME 85.7 fl (80-96); MEAN PLT VOLUME 9.4 fl (7.5-11.1); MONO % 5.7 % (3.8-10.2); PLATELET COUNT 129 10^3/uL (134-434); RBC 4.05 M/mm3 (4.00-5.60); RDW 14.1 % (11.9-15.9); WHITE BLOOD COUNT 5.7 K/mm3 (4.0-10.0)
[2021-08-22 09:47] LABS: CALCIUM 8.4 mg/dL (8.5-10.1)
[2021-08-22 09:48] LABS: ALBUMIN 3.7 g/dl (3.4-5.0); BLOOD UREA NITROGEN 26.9 mg/dL (7-18); MAGNESIUM 2.1 mg/dL (1.8-2.4)
[2021-08-22 09:50] LABS: PHOSPHOROUS 4.2 mg/dL (2.5-4.9)
[2021-08-22 09:51] LABS: CREATININE 1.4 mg/dL (0.55-1.3)
[2021-08-22 09:52] LABS: BILIRUBIN,TOTAL 0.3 mg/dL (0.2-1); TOT PROT 7.2 g/dl (6.4-8.2)
[2021-08-22] MEDS: ASPIRIN 81 MG CHEWABLE TABLETS PO SCH (11:49)
[2021-08-22] MEDS: PANTOPRAZOLE 40 MG TABLET PO SCH (11:50)
[2021-08-22] MEDS: levETIRAcetam 500 MG TABLET (FP) PO SCH ×2 (11:50→21:03)
[2021-08-22] MEDS ORDERED: SODIUM CHLORIDE 0.45% 1,000 ML IV SCH (12:30)
[2021-08-22] MEDS: SODIUM ZIRCONIUM CYCLOSILICATE (LOKELMA) 10 GM PACKET PO SCH (15:12)
[2021-08-22] MEDS: amLODIPine BESYLATE 5 MG TABLET (FP) PO SCH (16:27)
[2021-08-22] MEDS ORDERED: SODIUM ZIRCONIUM CYCLOSILICATE (LOKELMA) 5 GM PACKET PO SCH (20:00)
[2021-08-22] MEDS: INSULIN (LEVEMIR) 100 UNITS/ML UNITS SQ SCH (21:04)
[2021-08-22] MEDS: ALPRAZolam 1 MG TABLET PO SCH (21:08)
[2021-08-23] MEDS: GABAPENTIN 400 MG CAPSULE PO SCH ×3 (06:27→21:32)
[2021-08-23] MEDS: PRAMIPEXOLE DIHYDROCHLORIDE 0.125 MG TABLET PO SCH ×3 (06:28→21:31)
[2021-08-23] MEDS: INSULIN (LEVEMIR) 100 UNITS/ML UNITS SQ SCH ×2 (06:28→21:30)
[2021-08-23] MEDS: HEPARIN NA (PORCINE) 5,000 UNITS/ML 1ML VIAL SQ SCH ×3 (06:28→21:32)
[2021-08-23] MEDS: INSULIN SLIDING SCALE (NOVOLOG) 1 VIAL SQ SCH ×4 (06:29→21:39)
[2021-08-23 10:05] LABS: ALBUMIN 3.5 g/dl (3.4-5.0); BLOOD UREA NITROGEN 23.8 mg/dL (7-18); CALCIUM 8.9 mg/dL (8.5-10.1)
[2021-08-23 10:08] LABS: CREATININE 1.1 mg/dL (0.55-1.3)
[2021-08-23 10:10] LABS: BILIRUBIN,TOTAL 0.3 mg/dL (0.2-1); TOT PROT 6.9 g/dl (6.4-8.2)
[2021-08-23] MEDS: levETIRAcetam 500 MG TABLET (FP) PO SCH ×2 (10:53→21:31)
[2021-08-23] MEDS: ASPIRIN 81 MG CHEWABLE TABLETS PO SCH (10:53)
[2021-08-23] MEDS: SODIUM ZIRCONIUM CYCLOSILICATE (LOKELMA) 10 GM PACKET PO SCH (10:53)
[2021-08-23] MEDS: PANTOPRAZOLE 40 MG TABLET PO SCH (10:54)
[2021-08-23] MEDS: amLODIPine BESYLATE 5 MG TABLET (FP) PO SCH (10:54)
[2021-08-23] MEDS: ALPRAZolam 1 MG TABLET PO SCH ×2 (10:56→21:34)
[2021-08-23] MEDS: POLYETHYLENE GLYCOL (HEALTHYLAX) 3350 17 GM PACKET PO SCH (16:30)
[2021-08-24] MEDS: PRAMIPEXOLE DIHYDROCHLORIDE 0.125 MG TABLET PO SCH ×3 (05:52→21:19)
[2021-08-24] MEDS: GABAPENTIN 400 MG CAPSULE PO SCH ×3 (05:52→21:20)
[2021-08-24] MEDS: HEPARIN NA (PORCINE) 5,000 UNITS/ML 1ML VIAL SQ SCH ×3 (05:53→21:18)
[2021-08-24] MEDS: INSULIN SLIDING SCALE (NOVOLOG) 1 VIAL SQ SCH ×4 (06:08→21:18)
[2021-08-24] MEDS: INSULIN (LEVEMIR) 100 UNITS/ML UNITS SQ SCH ×2 (06:08→21:18)
[2021-08-24] MEDS: levETIRAcetam 500 MG TABLET (FP) PO SCH ×2 (09:42→21:19)
[2021-08-24] MEDS: ALPRAZolam 1 MG TABLET PO SCH ×2 (09:42→21:19)
[2021-08-24] MEDS: PANTOPRAZOLE 40 MG TABLET PO SCH (09:42)
[2021-08-24] MEDS: SODIUM ZIRCONIUM CYCLOSILICATE (LOKELMA) 10 GM PACKET PO SCH (09:42)
[2021-08-24] MEDS: ASPIRIN 81 MG CHEWABLE TABLETS PO SCH (09:42)
[2021-08-24] MEDS: POLYETHYLENE GLYCOL (HEALTHYLAX) 3350 17 GM PACKET PO SCH (09:42)
[2021-08-24] MEDS: amLODIPine BESYLATE 5 MG TABLET (FP) PO SCH (09:47)
[2021-08-24 12:17] LABS: BASO % 0.5 % (0-2.0); EOS % 9.5 % (0-4.5); HEMATOCRIT 34.2 % (35.4-49); HEMOGLOBIN 11.5 GM/dL (11.7-16.9); LYMPH % 38.7 % (8-40); MCH 28.5 pg (25.7-33.7); MCHC 33.5 g/dl (32.0-35.9); MEAN CELL VOLUME 84.9 fl (80-96); MEAN PLT VOLUME 8.9 fl (7.5-11.1); MONO % 6.2 % (3.8-10.2); NEUT % 45.1 % (42.8-82.8); PLATELET COUNT 123 10^3/uL (134-434); RBC 4.03 M/mm3 (4.00-5.60); RDW 14.1 % (11.9-15.9)
[2021-08-24 12:36] LABS: CALCIUM 8.5 mg/dL (8.5-10.1)
[2021-08-24 12:38] LABS: ALBUMIN 3.4 g/dl (3.4-5.0); BLOOD UREA NITROGEN 21.3 mg/dL (7-18); MAGNESIUM 2.3 mg/dL (1.8-2.4)
[2021-08-24 12:42] LABS: BILIRUBIN,TOTAL 0.5 mg/dL (0.2-1)
[2021-08-25] MEDS: INSULIN SLIDING SCALE (NOVOLOG) 1 VIAL SQ SCH ×2 (06:19→10:15)
[2021-08-25] MEDS: GABAPENTIN 400 MG CAPSULE PO SCH (06:20)
[2021-08-25] MEDS: PRAMIPEXOLE DIHYDROCHLORIDE 0.125 MG TABLET PO SCH (06:20)
[2021-08-25] MEDS: HEPARIN NA (PORCINE) 5,000 UNITS/ML 1ML VIAL SQ SCH (06:20)
[2021-08-25] MEDS: INSULIN (LEVEMIR) 100 UNITS/ML UNITS SQ SCH (06:20)
[2021-08-25 08:21] LABS: BASO % 0.6 % (0-2.0); EOS % 11.2 % (0-4.5); HEMOGLOBIN 10.6 GM/dL (11.7-16.9); LYMPH % 47.4 % (8-40); MCHC 33.2 g/dl (32.0-35.9); MEAN CELL VOLUME 84.5 fl (80-96); MEAN PLT VOLUME 9.6 fl (7.5-11.1); MONO % 5.9 % (3.8-10.2); NEUT % 34.9 % (42.8-82.8); PLATELET COUNT 123 10^3/uL (134-434); RBC 3.79 M/mm3 (4.00-5.60); WHITE BLOOD COUNT 4.3 K/mm3 (4.0-10.0)
[2021-08-25 08:41] LABS: CALCIUM 8.3 mg/dL (8.5-10.1)
[2021-08-25 08:43] LABS: ALBUMIN 3.1 g/dl (3.4-5.0)
[2021-08-25 08:44] LABS: MAGNESIUM 2.4 mg/dL (1.8-2.4)
[2021-08-25 08:45] LABS: BILIRUBIN,TOTAL 0.4 mg/dL (0.2-1); TOT PROT 6.5 g/dl (6.4-8.2)
[2021-08-25] MEDS: POLYETHYLENE GLYCOL (HEALTHYLAX) 3350 17 GM PACKET PO SCH (09:58)
[2021-08-25] MEDS: SODIUM ZIRCONIUM CYCLOSILICATE (LOKELMA) 10 GM PACKET PO SCH (09:59)
[2021-08-25] MEDS: levETIRAcetam 500 MG TABLET (FP) PO SCH (09:59)
[2021-08-25] MEDS: ALPRAZolam 1 MG TABLET PO SCH (09:59)
[2021-08-25] MEDS: ASPIRIN 81 MG CHEWABLE TABLETS PO SCH (09:59)
[2021-08-25] MEDS: PANTOPRAZOLE 40 MG TABLET PO SCH (09:59)
[2021-08-25] MEDS ORDERED: amLODIPine BESYLATE 10 MG TABLET (FP) PO SCH (10:00)
[2021-08-25 11:17] VITALS: BP 120/66; PULSE 70; TEMP 97.6
== END 2021-08-25 13:20 | disposition home or self-care (01) | DRG 641 ==
LOC: JER 15:28 → JERBED 20:27 → J4S 08-22 00:28
PROVIDERS: ADMIT Hospitalist; ATTEND Nurse Practitioner Acute Care
DX: E87.5 Hyperkalemia (principal); I69.351 Hemiplegia and hemiparesis following cerebral infarction affecting right dominant side; E11.65 Type 2 diabetes mellitus with hyperglycemia; G40.909 Epilepsy, unspecified, not intractable, without status epilepticus; I25.10 Atherosclerotic heart disease of native coronary artery without angina pectoris; E11.22 Type 2 diabetes mellitus with diabetic chronic kidney disease; I12.9 Hypertensive chronic kidney disease with stage 1 through stage 4 chronic kidney disease, or unspecified chronic kidney disease; N18.9 Chronic kidney disease, unspecified; Z86.16 Personal history of COVID-19; Z79.84 Long term (current) use of oral hypoglycemic drugs; E78.5 Hyperlipidemia, unspecified; R16.1 Splenomegaly, not elsewhere classified; K83.8 Other specified diseases of biliary tract; K59.00 Constipation, unspecified
CPT/HCPCS: 36415; 71045-TC-FY; 74177-TC; 80048; 80053; 81003; 82088; 82436; 82533; 82962; 83036; 83735; 83880; 83930; 83935; 84100; 84133; 84244; 84300; 84484; 85025; 87086; 93005; 93010; 97116-GP; 97161-GP; 99285-25; C9803-CS; J1644; Q9967; U0003; U0005

== ENCOUNTER 2021-10-04 09:25 | Inpatient (IN) | payer OTHER ==
[2021-10-04] MEDS ORDERED: VANCOMYCIN 1 GM in D5W (PRE-DOCKED) 1,000 MG/250 ML IVPB ONE (10:11)
[2021-10-04] MEDS ORDERED: PIPERACILLIN/TAZOB 4.5 GM 4.5 GM in DEXTROSE 5%-WATER 100 ML IVPB ONE (10:11)
[2021-10-04] MEDS ORDERED: SODIUM CHLORIDE 0.9% 500 ML INFUS.BAG IV ONE (10:12)
[2021-10-04] MEDS ORDERED: PIPERACILLIN/TAZOB 4.5 GM 4.5 GM/100 ML BAG IVPB ONE (10:44)
[2021-10-04] MEDS ORDERED: VANCOMYCIN 1 GRAM (PRE-DOCKED) 1,000 MG/250 ML BAG IVPB ONE (10:44)
[2021-10-04 11:03] LABS: BASO % 0.2 % (0-2.0); EOS % 1.4 % (0-4.5); HEMATOCRIT 32.3 % (35.4-49); HEMOGLOBIN 10.8 GM/dL (11.7-16.9); LYMPH % 11.3 % (8-40); MCHC 33.4 g/dl (32.0-35.9); MEAN CELL VOLUME 83.8 fl (80-96); MEAN PLT VOLUME 9.1 fl (7.5-11.1); MONO % 5.4 % (3.8-10.2); NEUT % 81.7 % (42.8-82.8); PLATELET COUNT 154 10^3/uL (134-434); RBC 3.86 M/mm3 (4.00-5.60); RDW 13.9 % (11.9-15.9); WHITE BLOOD COUNT 6.8 K/mm3 (4.0-10.0)
[2021-10-04 11:09] LABS: INR 1.02 (0.83-1.09); PROTHROMBIN TIME (PATIENT) 11.7 SEC (9.7-13.0)
[2021-10-04 11:23] LABS: CALCIUM 8.8 mg/dL (8.5-10.1)
[2021-10-04 11:25] LABS: ALBUMIN 3.7 g/dl (3.4-5.0); BLOOD UREA NITROGEN 30.9 mg/dL (7-18); MAGNESIUM 1.8 mg/dL (1.8-2.4)
[2021-10-04 11:27] LABS: CREATININE 1.2 mg/dL (0.55-1.3)
[2021-10-04 11:28] LABS: BILIRUBIN,TOTAL 0.3 mg/dL (0.2-1); TOT PROT 7.2 g/dl (6.4-8.2)
[2021-10-04 11:32] LABS: N-TERMINAL BNP 429.7 pg/ml (5-125)
[2021-10-04 14:22] LABS: VENOUS BASE EXCESS -4.7 mmol/L (-2-2); VENOUS O2 SATURATION 20.5 % (70-80); VENOUS PH 7.211 (7.310-7.410)
[2021-10-04 14:55] LABS: EPI CELLS 6 /uL (0-25.1); HYALINE CASTS 0 /uL (0-3.1); URINE APPEARANCE CLEAR; URINE BACTERIA 2 /uL (0-1359); URINE BILIRUBIN NEGATIVE (NEGATIVE); URINE COLOR YELLOW; URINE GLUCOSE (UA) NEGATIVE (NEGATIVE); URINE KETONE NEGATIVE (NEGATIVE); URINE LEUK ESTERASE NEGATIVE (NEGATIVE); URINE NITRITE NEGATIVE (NEGATIVE); URINE PROTEIN 2+ (NEGATIVE); URINE RBC 3 /uL (0-23.9); URINE UROBILINOGEN 0.2 mg/dL (0.2-1.0); URINE WBC 4 /uL (0-25.8)
[2021-10-04] MEDS ORDERED: ACETAMINOPHEN 1000 MG/100 ML BAG IVPB PRN (19:29)
[2021-10-04] MEDS ORDERED: PIPERACILLIN/TAZOB 3.375 GM 3.375 GM in DEXTROSE 5%-WATER - 50 ML IVPB SCH (19:30)
[2021-10-04] MEDS ORDERED: ACETAMINOPHEN 325 MG TABLET (FP) PO SCH (22:00)
[2021-10-04] MEDS ORDERED: levETIRAcetam 500 MG TABLET (FP) PO ONE (22:35)
[2021-10-04] MEDS ORDERED: PIPERACILLIN/TAZOB 3.375 GM 3.375 GM/50 ML BAG IVPB ONE (22:35)
[2021-10-04] MEDS: PIPERACILLIN/TAZOB 3.375 GM 3.375 GM in DEXTROSE 5%-WATER - 50 ML IVPB SCH (22:50)
[2021-10-04] MEDS: levETIRAcetam 500 MG TABLET (FP) PO SCH (22:50)
[2021-10-05] MEDS: PIPERACILLIN/TAZOB 3.375 GM 3.375 GM in DEXTROSE 5%-WATER - 50 ML IVPB SCH ×4 (03:24→19:35)
[2021-10-05] MEDS ORDERED: PIPERACILLIN/TAZOB 3.375 GM 3.375 GM/50 ML BAG IVPB ONE (05:26)
[2021-10-05 07:41] LABS: EOS % 0.6 % (0-4.5); HEMOGLOBIN 10.1 GM/dL (11.7-16.9); LYMPH % 17.1 % (8-40); MCHC 34.9 g/dl (32.0-35.9); MEAN CELL VOLUME 83.1 fl (80-96); MEAN PLT VOLUME 8.8 fl (7.5-11.1); MONO % 5.8 % (3.8-10.2); NEUT % 76.2 % (42.8-82.8); PLATELET COUNT 155 10^3/uL (134-434); RBC 3.49 M/mm3 (4.00-5.60); RDW 13.8 % (11.9-15.9); WHITE BLOOD COUNT 7.2 K/mm3 (4.0-10.0)
[2021-10-05 07:42] LABS: BASO % 0.3 % (0-2.0)
[2021-10-05 08:06] LABS: CALCIUM 8.1 mg/dL (8.5-10.1)
[2021-10-05 08:07] LABS: ALBUMIN 3.1 g/dl (3.4-5.0); BLOOD UREA NITROGEN 25.4 mg/dL (7-18)
[2021-10-05 08:11] LABS: TOT PROT 6.5 g/dl (6.4-8.2)
[2021-10-05 08:12] LABS: BILIRUBIN,TOTAL 0.4 mg/dL (0.2-1)
[2021-10-05] MEDS ORDERED: levETIRAcetam 500 MG TABLET (FP) PO ONE ×2 (13:37→21:04)
[2021-10-05] MEDS: levETIRAcetam 500 MG TABLET (FP) PO SCH ×2 (14:00→21:19)
[2021-10-05] MEDS ORDERED: PIPERACILLIN/TAZOB 2.25 GM 2.25 GM/50 ML BAG IVPB ONE (16:08)
[2021-10-05] MEDS ORDERED: POLYETHYLENE GLYCOL (HEALTHYLAX) 3350 17 GM PACKET ONE (16:10)
[2021-10-05] MEDS: ENOXAPARIN NA (PORCINE) 40 MG/0.4 ML DISP.SYRIN SQ SCH (16:54)
[2021-10-05] MEDS: PRAMIPEXOLE DIHYDROCHLORIDE 0.125 MG TABLET PO SCH ×2 (16:55→21:19)
[2021-10-05] MEDS: ALBUTEROL SO4 2.5/IPRATROPIUM 0.5 INH SOL 3 ML VIAL.NEB. NEB SCH (20:58)
[2021-10-05] MEDS ORDERED: ALBUTEROL SO4 2.5/IPRATROPIUM 0.5 INH SOL 3 ML VIAL.NEB. NEB ONE (21:03)
[2021-10-05] MEDS ORDERED: QUEtiapine FUMARATE 100 MG TABLET (FP) ONE (21:04)
[2021-10-05] MEDS: INSULIN SLIDING SCALE (NOVOLOG) 1 VIAL SQ SCH (21:27)
[2021-10-06] MEDS: INSULIN SLIDING SCALE (NOVOLOG) 1 VIAL SQ SCH ×5 (00:48→21:55)
[2021-10-06] MEDS ORDERED: PIPERACILLIN/TAZOBACTAM 3.375 GM VIAL IVPB ONE ×3 (01:55→17:08)
[2021-10-06] MEDS ORDERED: DEXTROSE 5%-WATER - 50 ML IVPB ONE ×3 (01:55→17:08)
[2021-10-06] MEDS: ALPRAZolam 1 MG TABLET PO PRN ×2 (01:56→21:54)
[2021-10-06] MEDS: PIPERACILLIN/TAZOB 3.375 GM 3.375 GM in DEXTROSE 5%-WATER - 50 ML IVPB SCH ×3 (01:58→17:14)
[2021-10-06 02:53] VITALS: BMI 30.7
[2021-10-06] MEDS: PRAMIPEXOLE DIHYDROCHLORIDE 0.125 MG TABLET PO SCH ×3 (06:12→21:53)
[2021-10-06] MEDS: ALBUTEROL SO4 2.5/IPRATROPIUM 0.5 INH SOL 3 ML VIAL.NEB. NEB SCH ×4 (07:40→20:38)
[2021-10-06] MEDS: ASPIRIN 81 MG CHEWABLE TABLETS PO SCH (09:52)
[2021-10-06] MEDS: ENOXAPARIN NA (PORCINE) 40 MG/0.4 ML DISP.SYRIN SQ SCH (09:52)
[2021-10-06] MEDS: levETIRAcetam 500 MG TABLET (FP) PO SCH ×2 (09:52→21:54)
[2021-10-06] MEDS ORDERED: LISINOPRIL 10 MG TABLET PO ONE (17:02)
[2021-10-06] MEDS: amLODIPine BESYLATE 10 MG TABLET (FP) PO SCH (17:14)
[2021-10-06] MEDS ORDERED: METOPROLOL TARTRATE 5 MG/5 ML VIAL IVPUSH ONE (18:33)
[2021-10-06] MEDS: METOPROLOL TARTRATE 5 MG/5 ML VIAL IVPUSH PRN (22:11)
[2021-10-07] MEDS ORDERED: PIPERACILLIN/TAZOBACTAM 3.375 GM VIAL IVPB ONE ×3 (00:32→15:48)
[2021-10-07] MEDS ORDERED: DEXTROSE 5%-WATER - 50 ML IVPB ONE ×3 (00:33→15:48)
[2021-10-07] MEDS: PIPERACILLIN/TAZOB 3.375 GM 3.375 GM in DEXTROSE 5%-WATER - 50 ML IVPB SCH ×3 (02:28→17:10)
[2021-10-07] MEDS: INSULIN SLIDING SCALE (NOVOLOG) 1 VIAL SQ SCH ×4 (06:23→21:57)
[2021-10-07] MEDS: PRAMIPEXOLE DIHYDROCHLORIDE 0.125 MG TABLET PO SCH ×3 (06:59→21:53)
[2021-10-07 07:08] LABS: BASO % 0.5 % (0-2.0); EOS % 7.3 % (0-4.5); HEMOGLOBIN 10.2 GM/dL (11.7-16.9); LYMPH % 30.8 % (8-40); MCH 28.2 pg (25.7-33.7); MCHC 33.9 g/dl (32.0-35.9); MEAN CELL VOLUME 83.3 fl (80-96); MEAN PLT VOLUME 8.8 fl (7.5-11.1); MONO % 7.7 % (3.8-10.2); NEUT % 53.7 % (42.8-82.8); PLATELET COUNT 207 10^3/uL (134-434); RDW 13.7 % (11.9-15.9); WHITE BLOOD COUNT 5.3 K/mm3 (4.0-10.0)
[2021-10-07 07:25] LABS: ALBUMIN 3.4 g/dl (3.4-5.0); CALCIUM 8.3 mg/dL (8.5-10.1)
[2021-10-07 07:26] LABS: MAGNESIUM 2.2 mg/dL (1.8-2.4)
[2021-10-07 07:30] LABS: BILIRUBIN,TOTAL 0.9 mg/dL (0.2-1); TOT PROT 7.4 g/dl (6.4-8.2)
[2021-10-07] MEDS: ALBUTEROL SO4 2.5/IPRATROPIUM 0.5 INH SOL 3 ML VIAL.NEB. NEB SCH ×4 (08:20→21:11)
[2021-10-07] MEDS: LISINOPRIL 10 MG TABLET PO SCH (09:59)
[2021-10-07] MEDS: amLODIPine BESYLATE 10 MG TABLET (FP) PO SCH (09:59)
[2021-10-07] MEDS: levETIRAcetam 500 MG TABLET (FP) PO SCH ×2 (09:59→21:53)
[2021-10-07] MEDS: ASPIRIN 81 MG CHEWABLE TABLETS PO SCH (09:59)
[2021-10-07] MEDS: ENOXAPARIN NA (PORCINE) 40 MG/0.4 ML DISP.SYRIN SQ SCH (10:00)
[2021-10-07] MEDS: ALPRAZolam 1 MG TABLET PO PRN (21:56)
[2021-10-08] MEDS ORDERED: PIPERACILLIN/TAZOBACTAM 3.375 GM VIAL IVPB ONE ×2 (01:57→09:41)
[2021-10-08] MEDS ORDERED: DEXTROSE 5%-WATER - 50 ML IVPB ONE ×2 (01:57→09:41)
[2021-10-08] MEDS: PIPERACILLIN/TAZOB 3.375 GM 3.375 GM in DEXTROSE 5%-WATER - 50 ML IVPB SCH ×3 (02:14→19:00)
[2021-10-08] MEDS: INSULIN SLIDING SCALE (NOVOLOG) 1 VIAL SQ SCH ×4 (06:55→22:28)
[2021-10-08] MEDS: PRAMIPEXOLE DIHYDROCHLORIDE 0.125 MG TABLET PO SCH ×3 (06:56→22:28)
[2021-10-08 07:30] LABS: BASO % 0.7 % (0-2.0); EOS % 10.1 % (0-4.5); HEMATOCRIT 30.5 % (35.4-49); HEMOGLOBIN 10.2 GM/dL (11.7-16.9); LYMPH % 39.2 % (8-40); MCH 27.7 pg (25.7-33.7); MCHC 33.5 g/dl (32.0-35.9); MEAN CELL VOLUME 82.8 fl (80-96); MEAN PLT VOLUME 8.5 fl (7.5-11.1); MONO % 8.7 % (3.8-10.2); NEUT % 41.3 % (42.8-82.8); PLATELET COUNT 195 10^3/uL (134-434); RBC 3.68 M/mm3 (4.00-5.60); RDW 13.6 % (11.9-15.9); WHITE BLOOD COUNT 4.2 K/mm3 (4.0-10.0)
[2021-10-08 07:49] LABS: ALBUMIN 3.1 g/dl (3.4-5.0); CALCIUM 8.2 mg/dL (8.5-10.1); MAGNESIUM 2.4 mg/dL (1.8-2.4)
[2021-10-08 07:50] LABS: BLOOD UREA NITROGEN 16.6 mg/dL (7-18)
[2021-10-08 07:54] LABS: TOT PROT 6.8 g/dl (6.4-8.2)
[2021-10-08 07:57] LABS: BILIRUBIN,TOTAL 0.9 mg/dL (0.2-1)
[2021-10-08] MEDS: ALBUTEROL SO4 2.5/IPRATROPIUM 0.5 INH SOL 3 ML VIAL.NEB. NEB SCH ×4 (08:33→20:22)
[2021-10-08] MEDS: ASPIRIN 81 MG CHEWABLE TABLETS PO SCH (09:45)
[2021-10-08] MEDS: ENOXAPARIN NA (PORCINE) 40 MG/0.4 ML DISP.SYRIN SQ SCH (09:45)
[2021-10-08] MEDS: levETIRAcetam 500 MG TABLET (FP) PO SCH ×2 (09:45→22:28)
[2021-10-08] MEDS: ALPRAZolam 1 MG TABLET PO PRN ×2 (09:46→22:28)
[2021-10-08] MEDS: LISINOPRIL 10 MG TABLET PO SCH (09:46)
[2021-10-08] MEDS: amLODIPine BESYLATE 10 MG TABLET (FP) PO SCH (09:46)
[2021-10-09] MEDS ORDERED: DEXTROSE 5%-WATER - 50 ML IVPB ONE ×2 (02:02→08:25)
[2021-10-09] MEDS ORDERED: PIPERACILLIN/TAZOBACTAM 3.375 GM VIAL IVPB ONE ×2 (02:02→08:24)
[2021-10-09] MEDS: PIPERACILLIN/TAZOB 3.375 GM 3.375 GM in DEXTROSE 5%-WATER - 50 ML IVPB SCH ×2 (02:20→10:00)
[2021-10-09] MEDS: PRAMIPEXOLE DIHYDROCHLORIDE 0.125 MG TABLET PO SCH ×3 (06:51→21:14)
[2021-10-09] MEDS: INSULIN SLIDING SCALE (NOVOLOG) 1 VIAL SQ SCH ×4 (06:51→21:19)
[2021-10-09 07:05] LABS: BASO % 0.7 % (0-2.0); EOS % 12.8 % (0-4.5); HEMATOCRIT 28.6 % (35.4-49); HEMOGLOBIN 9.6 GM/dL (11.7-16.9); LYMPH % 36.6 % (8-40); MCH 28.1 pg (25.7-33.7); MCHC 33.7 g/dl (32.0-35.9); MEAN CELL VOLUME 83.3 fl (80-96); MEAN PLT VOLUME 8.7 fl (7.5-11.1); MONO % 6.8 % (3.8-10.2); NEUT % 43.1 % (42.8-82.8); PLATELET COUNT 184 10^3/uL (134-434); RBC 3.43 M/mm3 (4.00-5.60); RDW 13.3 % (11.9-15.9); WHITE BLOOD COUNT 4.9 K/mm3 (4.0-10.0)
[2021-10-09 07:34] LABS: CALCIUM 8.2 mg/dL (8.5-10.1)
[2021-10-09 07:35] LABS: ALBUMIN 2.9 g/dl (3.4-5.0); BLOOD UREA NITROGEN 19.5 mg/dL (7-18); MAGNESIUM 2.1 mg/dL (1.8-2.4)
[2021-10-09 07:39] LABS: BILIRUBIN,TOTAL 0.6 mg/dL (0.2-1)
[2021-10-09 07:40] LABS: TOT PROT 6.4 g/dl (6.4-8.2)
[2021-10-09] MEDS: ALBUTEROL SO4 2.5/IPRATROPIUM 0.5 INH SOL 3 ML VIAL.NEB. NEB SCH ×4 (07:56→20:24)
[2021-10-09] MEDS: ENOXAPARIN NA (PORCINE) 40 MG/0.4 ML DISP.SYRIN SQ SCH ×2 (08:43→11:39)
[2021-10-09] MEDS: amLODIPine BESYLATE 10 MG TABLET (FP) PO SCH ×3 (08:44→11:39)
[2021-10-09] MEDS: ASPIRIN 81 MG CHEWABLE TABLETS PO SCH ×2 (08:44→11:38)
[2021-10-09] MEDS: LISINOPRIL 10 MG TABLET PO SCH ×2 (08:44→11:39)
[2021-10-09] MEDS: levETIRAcetam 500 MG TABLET (FP) PO SCH ×3 (08:45→21:14)
[2021-10-09] MEDS: AMOX TR/POT CLAV 500MG/125MG TABLETS (FP) PO SCH (17:23)
[2021-10-09] MEDS: ALPRAZolam 1 MG TABLET PO PRN (22:52)
[2021-10-10] MEDS: PRAMIPEXOLE DIHYDROCHLORIDE 0.125 MG TABLET PO SCH ×2 (05:27→14:50)
[2021-10-10] MEDS: METOPROLOL TARTRATE 5 MG/5 ML VIAL IVPUSH PRN (05:52)
[2021-10-10] MEDS: INSULIN SLIDING SCALE (NOVOLOG) 1 VIAL SQ SCH ×2 (06:15→11:37)
[2021-10-10 07:46] LABS: BASO % 0.9 % (0-2.0); EOS % 9.5 % (0-4.5); HEMATOCRIT 30.6 % (35.4-49); HEMOGLOBIN 10.2 GM/dL (11.7-16.9); LYMPH % 33.5 % (8-40); MCH 27.7 pg (25.7-33.7); MCHC 33.4 g/dl (32.0-35.9); MEAN PLT VOLUME 8.7 fl (7.5-11.1); MONO % 5.6 % (3.8-10.2); NEUT % 50.5 % (42.8-82.8); PLATELET COUNT 218 10^3/uL (134-434); RBC 3.68 M/mm3 (4.00-5.60); RDW 13.3 % (11.9-15.9); WHITE BLOOD COUNT 5.9 K/mm3 (4.0-10.0)
[2021-10-10 08:14] LABS: CALCIUM 8.3 mg/dL (8.5-10.1)
[2021-10-10] MEDS: ALBUTEROL SO4 2.5/IPRATROPIUM 0.5 INH SOL 3 ML VIAL.NEB. NEB SCH ×3 (08:14→16:43)
[2021-10-10 08:15] LABS: ALBUMIN 3.1 g/dl (3.4-5.0); BLOOD UREA NITROGEN 14.7 mg/dL (7-18)
[2021-10-10 08:18] LABS: CREATININE 0.8 mg/dL (0.55-1.3)
[2021-10-10 08:19] LABS: BILIRUBIN,TOTAL 0.5 mg/dL (0.2-1); TOT PROT 6.8 g/dl (6.4-8.2)
[2021-10-10] MEDS: AMOX TR/POT CLAV 500MG/125MG TABLETS (FP) PO SCH (08:56)
[2021-10-10] MEDS: ENOXAPARIN NA (PORCINE) 40 MG/0.4 ML DISP.SYRIN SQ SCH (08:59)
[2021-10-10] MEDS: ASPIRIN 81 MG CHEWABLE TABLETS PO SCH (08:59)
[2021-10-10] MEDS: levETIRAcetam 500 MG TABLET (FP) PO SCH (08:59)
[2021-10-10] MEDS: LISINOPRIL 10 MG TABLET PO SCH (09:00)
[2021-10-10] MEDS: amLODIPine BESYLATE 10 MG TABLET (FP) PO SCH (09:00)
[2021-10-10] MEDS ORDERED: HYDROCHLOROTHIAZIDE 12.5 MG CAPSULE (FP) PO SCH (10:00)
[2021-10-10 14:35] VITALS: BP 172/87; PULSE 91; TEMP 98.3
== END 2021-10-10 16:30 | DRG 177 ==
LOC: JER 09:25 → JERBED 13:33 → J4W 10-06 01:48
PROVIDERS: ADMIT Internal Medicine; ATTEND Nurse Practitioner Acute Care
DX: J69.0 Pneumonitis due to inhalation of food and vomit (principal); J96.01 Acute respiratory failure with hypoxia; I69.351 Hemiplegia and hemiparesis following cerebral infarction affecting right dominant side; J98.11 Atelectasis; I25.10 Atherosclerotic heart disease of native coronary artery without angina pectoris; I25.2 Old myocardial infarction; E78.5 Hyperlipidemia, unspecified; G40.909 Epilepsy, unspecified, not intractable, without status epilepticus; I12.9 Hypertensive chronic kidney disease with stage 1 through stage 4 chronic kidney disease, or unspecified chronic kidney disease; E11.22 Type 2 diabetes mellitus with diabetic chronic kidney disease; N18.9 Chronic kidney disease, unspecified; Z79.84 Long term (current) use of oral hypoglycemic drugs; Z86.16 Personal history of COVID-19; R13.10 Dysphagia, unspecified
CPT/HCPCS: 0241U-QW; 36415; 70450-TC; 71045-TC-FY; 71275-TC; 74230-TC-FY; 80053; 81003; 82803; 82962; 83036; 83605; 83690; 83735; 83880; 84100; 84484; 85025; 85610; 86850; 86900; 86901; 87040; 87086; 87899; 92611-GN; 93005; 93010; 94640; 94660; 97116-GP; 97162-GP; 99285-25; Q9967